=== PATIENT | female | born 1975 | race Caucasian/White ===

== ENCOUNTER 2020-05-03 17:26 | Outpatient (REF) | payer OTHER, SELFPAY | END 2020-05-03 17:27 | disposition home or self-care (01) | LOC: HO.LAB 17:26 | PROVIDERS: PCP Internal Medicine; Visit Provider Internal Medicine | DX: Z20.828 Contact with and (suspected) exposure to other viral communicable diseases (principal) | CPT/HCPCS: U0003 ==

== ENCOUNTER 2022-10-08 11:19 | Outpatient (REF) | payer OTHER, SELFPAY ==
--- NOTE | ~2022-10-08 | CT_ITS ---
EXAMINATION: CT CHEST, ABDOMEN AND PELVIS WITH CONTRAST CLINICAL INFORMATION: Malignant neoplasm of kidney. COMPARISON: Portions of a previous CT 10/03/2021, 10/14/2020, 04/12/2020. TECHNIQUE: Multidetector CT of the chest, abdomen and pelvis. The patient received: Oral contrast: No. Intravenous contrast: 85 mL of Omnipaque 350. No contrast reaction reported. Sagittal and coronal reformatted images were obtained on the technologist workstation. This CT examination was performed using dose optimization techniques as appropriate, variously including the following: *Automated exposure control *Adjustment of mA and/or kV according to patient size (this includes techniques or standardized protocols for targeted exams where dose is matched to indication/reason for exam; i.e. extremities or head) *Use of iterative reconstruction technique Total exam dose-length product 491 mGy-cm FINDINGS: CHEST: Lung: No abnormality of the central airways. 0.6 cm nonsolid round nodule in the periphery of the right middle lobe: 10/08/2022, series 6, image 262: 0.6 cm 10/03/2021, series 610, image 54: 0.6 cm 10/14/2020, series 306, image 68: 0.6 cm 04/12/2020, series 3, image 56: 0.6 cm There is an unchanged nodule in the extreme left apex measuring approximately 0.2 cm: 10/08/2022, series 6, image 78: 0.2 cm 04/12/2020, series 3, image 15: 0.2 cm There is some minor fibrotic change adjacent to some lower right thoracic osteophytes which does not require any further interval evaluation. Pleura: No pleural effusion or pneumothorax. Mediastinum: There are no enlarged mediastinal or hilar lymph nodes. The heart is not enlarged. No suspicious abnormality of the esophagus. Vascular: There is no coronary calcification demonstrated. There is no thoracic aortic aneurysm. The main pulmonary artery is of normal caliber. There is no pericardial fluid or thickening. Chest Wall/Axilla: No axillary or internal mammary lymphadenopathy. ABDOMEN/PELVIS: Liver, Gallbladder, And Biliary Tree: The liver contour is smooth. There is no suspicious focal liver lesion. Mild generalized fatty change. There may be a trace amount of more focal fatty change at the medial aspect of segment V. There is at least 1 opaque gallstone. No gallbladder wall thickening. No biliary dilation. Pancreas: Normal. Spleen: Normal. Adrenal Glands: Normal. Kidneys And Ureters: The solitary right kidney measures at least 9.8 cm in greatest length. The right renal contour is smooth. There is no suspicious abnormality of the right kidney. Evidence of left nephrectomy. There is an amorphous intermediate density area in the nephrectomy bed abutting the diaphragm: 10/08/2022, series 3, image 22: 1.9 cm 10/03/2021, series 309, image 40: 2.1 cm 10/14/2020, series 301, image 30: 4.4 cm 04/12/2020, series 4, image 39: 4.7 cm This area appears to have consolidated and there is less internal fat and the margins are better defined. There is no suspicious abnormality in the left nephrectomy bed. Gastrointestinal Tract: There are some colonic diverticula. No localized pericolonic fat stranding. The appendix is within normal limits. There is no small bowel dilation. No abnormality of the stomach. Abdominal Wall: Laxity in the left flank abdominal wall perhaps related to previous surgery. No bowel hernia. Lymphovascular Structures And Fluid: There is no abdominal aortic aneurysm. The portal vein enhances. There are a few nonspecific periportal lymph nodes which are unchanged. There is no free intraperitoneal fluid. Bladder: Within normal limits. Pelvic Viscera: There are low attenuating areas within the lower uterine segment and right side of the uterus and there is a probable myometrial mass on the right. These are unchanged. No suspicious abnormality in either ovary. Musculoskeletal: No suspicious focal bony lesion. CT/CT chest w IV con IMPRESSION: I do not have the reports from previous studies. Evidence of left nephrectomy with resolving postsurgical changes. No evidence of new or recurrent malignancy. There is a 0.6 cm nonsolid nodule in the right middle lobe which has been stable since at least 04/12/2020. According to the UPDATED 2017 Fleischner Society recommendations, the advised followup imaging for a single pure ground-glass nodule measuring 6 mm or greater is: CT at 6-12 months to confirm persistence, then CT every 2 years until 5 years if it persists.
--- NOTE | ~2022-10-08 | CT_ITS ---
EXAMINATION: CT ABDOMEN AND PELVIS WITH CONTRAST CLINICAL INFORMATION: Malignant neoplasm of kidney. Stat evaluation for the abdomen and pelvis. COMPARISON: None available. TECHNIQUE: Multidetector volumetric images were obtained from the superior aspect of the liver through the pubic symphysis following administration 85 mL of Omnipaque 350 intravenous contrast. Sagittal and coronal reformatted images were obtained on the technologist's workstation. This CT examination was performed using dose optimization techniques as appropriate, variously including the following: *Automated exposure control *Adjustment of mA and/or kV according to patient size (this includes techniques or standardized protocols for targeted exams where dose is matched to indication/reason for exam; i.e. extremities or head) *Use of iterative reconstruction technique DLP: 692 mGy-cm FINDINGS: LUNG BASES: Normal. No pulmonary consolidation or pleural effusion. LIVER: The liver has normal size, shape, and attenuation. No evidence of liver mass. GALLBLADDER AND BILIARY TREE: Gallbladder is physiologically distended and has a 0.4 cm calcified stone. No wall thickening or pericholecystic fluid. No dilated bile ducts. PANCREAS: Normal. No edema, pancreatic ductal dilatation or mass. SPLEEN: Normal. ADRENAL GLANDS: Normal. KIDNEYS AND URETERS: The right kidney is normal in size and enhances normally. No right renal mass, stone or hydronephrosis. The right ureter is normal. Left nephrectomy. Superior to the nephrectomy bed, lateral to the left adrenal gland, there is a 2.3 x 2 x 1.8 cm structure of 30-40 Hounsfield unit attenuation on these contrast-enhanced images. It is not well characterized on this examination but might represent a postoperative hematoma rather than metastatic deposit. BLADDER: Normal. No calculi or wall thickening. BOWEL AND PERITONEUM: Stomach and small bowel are unremarkable. No dilated bowel loops. No focal bowel wall thickening, mesenteric fat stranding or free fluid. The appendix is normal. Diverticula of the sigmoid colon without diverticulitis. ABDOMINAL WALL: Unremarkable. VASCULATURE: Mild atherosclerotic calcification of the abdominal aorta. Inferior vena cava is normal. LYMPH NODES: No pathologic sized lymph nodes in the abdomen or pelvis. A normal-sized aortocaval lymph node is 0.6 cm in short axis dimension (image 26, series 3). No inguinal lymphadenopathy. PELVIC VISCERA: 1.8 cm nabothian cyst of the cervix. Subserosal leiomyoma of the anterior uterine body. Also, there appears to be a 1.2 cm follicle of the right ovary. No adnexal mass or pelvic free fluid. MUSCULOSKELETAL: No suspicious bone lesions. Facet osteoarthritis and grade 1 anterolisthesis at L4-L5. CT/CT abdomen pelvis w IV con IMPRESSION: * Status post left nephrectomy. * A 2.3 x 2 x 1.8 cm structure of 30-40 Hounsfield unit attenuation projecting lateral to the left adrenal gland is not well characterized. It might represent a focal postoperative hematoma. Alternatively, if this has been observed on prior outside postoperative imaging exams and is increasing in size, then a tumor deposit would be considered in this patient with history of malignant neoplasm. If clinically warranted, MR imaging of the abdomen performed without and with IV contrast may be obtained for further characterization. * Cholelithiasis. * Diverticulosis of sigmoid colon without diverticulitis.
[2022-10-08] MEDS: iohexoL 350 MG/ML 100 ML INFUS..BTL IV (12:05)
== END 2022-10-08 11:20 | disposition home or self-care (01) ==
LOC: HO.CT 11:19
PROVIDERS: PCP Registered Nurse; Visit Provider Urology
DX: C64.2 Malignant neoplasm of left kidney, except renal pelvis (principal)
CPT/HCPCS: 71260; 74177; Q9967

== ENCOUNTER 2023-02-02 11:46 | Outpatient (REF) | payer OTHER, SELFPAY ==
[2023-02-02 14:00] LABS: Alanine Aminotransferase 31 U/L (0-31); Albumin Level 4.1 g/dL (3.5-5.0); Alkaline Phosphatase 105 U/L (39-117); Aspartate Amino Transferase 23 U/L (5-31); Bilirubin Direct 0.1 mg/dL (0.0-0.5); Bilirubin Total 0.3 mg/dL (0.0-1.0); Total Protein 7.2 g/dL (6.5-8.0)
== END 2023-02-02 11:47 | disposition home or self-care (01) ==
LOC: HO.10HDL 11:46
PROVIDERS: Visit Provider Internal Medicine Gastroenterology
DX: R94.5 Abnormal results of liver function studies (principal)
CPT/HCPCS: 36415; 80076

== ENCOUNTER 2023-05-05 07:54 | Outpatient (REF) | payer OTHER, SELFPAY ==
[2023-05-05 10:17] LABS: MANUAL DIFF FLAG NO
[2023-05-05 10:27] LABS: Basophils Absolute Auto 0.1 X10*3/uL (0.0-0.2); Basophils Percent Auto 1.3 % (0-2); Eosinophils Absolute Auto 0.4 X10*3/uL (0.0-0.4); Eosinophils Percent Auto 5.1 % (0-4); Hematocrit 42.2 % (37.0-47.0); Hemoglobin 13.1 g/dl (12.0-16.0); Imm Gran Abs Auto 0.01 X10*3/uL (0.00-0.03); Imm Gran Pct Auto 0.1 % (0.0-0.4); Lymphocytes Absolute Auto 2.7 X10*3/uL (1.2-4.9); Lymphocytes Percent Auto 35.4 % (20-40); Mean Corpuscular Hemoglobin 25.8 pg (27.0-33.0); Mean Corpuscular Volume 83.1 fL (80.0-98.0); Mean Platelet Volume 9.8 fL (9.4-12.3); Monocytes Absolute Auto 0.6 X10*3/uL (0.1-1.2); Monocytes Percent Auto 8.1 % (2-11); Neutrophils Absolute Auto 3.8 x10*3/uL (2.0-8.3); Platelet Count 366 X10*3/uL (160-400); Red Blood Count 5.08 X10*6/uL (4.20-5.50); Red Cell Distribution Width 13.8 % (11.0-16.0); White Blood Count 7.5 X10*3/uL (4.8-10.8)
[2023-05-05 10:46] LABS: Estimated Average Glucose 108 mg/dL; Hemoglobin A1C 107.9532 umol/L; Hemoglobin A1c % 5.4 % (<6.0)
[2023-05-05 10:54] LABS: Alanine Aminotransferase 38 U/L (0-31); Albumin Level 4.1 g/dL (3.5-5.0); Alkaline Phosphatase 115 U/L (39-117); Anion Gap 13 (12-20); Aspartate Amino Transferase 27 U/L (5-31); Bilirubin Total 0.4 mg/dL (0.0-1.0); Blood Urea Nitrogen 14 mg/dL (9-16); Calcium 9.5 mg/dL (8.4-10.2); Carbon Dioxide 25 mmol/L (22-29); Chloride 106 mmol/L (96-108); Cholesterol 221 mg/dL (<200); Estimated Glomerular Filt Rate 51; Glucose Random 106 mg/dL (60-115); HDL Cholesterol 44 mg/dL (>40); LDL Cholesterol Calculated 153 mg/dL (<100); Potassium 4.1 mmol/L (3.3-5.1); Sodium 140 mmol/L (135-145); Total Protein 7.4 g/dL (6.5-8.0); Triglycerides 124 mg/dL (<150)
[2023-05-05 11:12] LABS: Free T4 (Free Thyroxine) 0.96 ng/dL (0.71-1.85); Thyroid Stimulating Hormone 1.18 uIU/mL (0.32-4.0)
== END 2023-05-05 07:55 | disposition home or self-care (01) ==
LOC: HO.10HDL 07:54
PROVIDERS: Visit Provider Registered Nurse
DX: Z00.00 Encounter for general adult medical examination without abnormal findings (principal); K74.3 Primary biliary cirrhosis; E78.5 Hyperlipidemia, unspecified; R73.01 Impaired fasting glucose; R53.83 Other fatigue
CPT/HCPCS: 36415; 80053; 80061; 83036; 84439; 84443; 85025

== ENCOUNTER 2023-07-13 12:36 | Outpatient (REF) | payer OTHER, SELFPAY ==
--- NOTE | ~2023-07-13 | XR_ITS ---
EXAMINATION: XR CHEST CLINICAL INFORMATION: Cough COMPARISON: 4 prior yearly chest CTs from 2019 through 2022 TECHNIQUE: 2 views of the chest were obtained. FINDINGS: No significant abnormality is noted involving the heart, lungs, mediastinum, bony thorax or soft tissues. A linear area of atelectasis is present in the left mid to lower lung. XR/XR chest 2V IMPRESSION: Negative exam
== END 2023-07-13 12:37 | disposition home or self-care (01) ==
LOC: HO.HMGCX 12:36
PROVIDERS: PCP Registered Nurse; Visit Provider Registered Nurse
DX: R05.9 Cough, unspecified (principal)
CPT/HCPCS: 71046

== ENCOUNTER 2023-08-24 09:02 | Emergency (ER) | payer OTHER, SELFPAY ==
--- NOTE | ~2023-08-24 | US_ITS ---
EXAMINATION: US VENOUS WITH DOPPLER UPPER EXTREMITY, RIGHT CLINICAL INFORMATION: Right upper extremity pain and swelling COMPARISON: None available. TECHNIQUE: Ultrasound of the upper extremity is performed using compression sonography and color and pulse Doppler flow with assessment of augmentation of flow. There is also imaging and Doppler assessment of the jugular and subclavian veins. Spectral analysis with color-flow imaging is performed. Somewhat technically difficult due to diminutive vessels. FINDINGS: Respiratory variation and normal compression are are noted throughout the upper extremity including the basilic, brachial, cephalic and radial and ulnar veins. There is normal flow in the internal jugular, subclavian and axillary veins. There is no visible deep or superficial thrombophlebitis. US/US venous duplex UE RT IMPRESSION: No DVT demonstrated in the right upper extremity.
[2023-08-24 09:07] VITALS: BP 176/98; PULSE 89; RESP 19; TEMP 36.6; O2SAT 98; BMI 32.9
--- NOTE | 2023-08-24 10:19 | ED.EXTPRO ---
HPI - Extremity Problem General Chief complaint: Extremity Injury, Upper Stated complaint: ? Phlebitis R Arm Time Seen by Provider: 08/24/23 09:22 Source: patient Mode of arrival: ambulatory Limitations: no limitations History of Present Illness HPI Narrative: This is a 48-year-old female history of unilateral kidney, status post radical L nephrectomy due to kidney cancer presents to the emergency department with pain and swelling to right upper extremity, reports her right arm in the antecubital region is uncomfortable, swollen and she feels like there is a firm cord in that region. It started yesterday without trauma. Denies history of PE or DVT. Does have a history of malignancy. Reports her dog may have jumped on her right biceps at some point because she has a small bruise to that region however does not think that this is related to this event. Denies chest pain, shortness of breath, nausea, vomiting, abdominal pain, headache, vision changes, dizziness, numbness, tingling and weakness Related Data Previous Rx's Medication Instructions Recorded naproxen 500 mg tablet 500 mg PO BID #14 tabs 08/24/23 Allergies Allergy/AdvReac Type Severity Reaction Status Date / Time amoxicillin Allergy Rash Verified 08/24/23 09:07 cephalexin [From Keflex] Allergy Rash Verified 08/24/23 09:07 Review of Systems Review of Systems: Yes all other systems are reviewed and are negative PMFSH Past Medical History Attestation statement: The following information was validated with the patient. Source: old records reviewed and nursing notes reviewed Social History Social History Advance Directives: Yes Advance Directives Information Provided: Yes Advance Directives on File: No Physical Exam Vital Signs: Vital Signs: Last Vital Signs Temp 98 F 08/24/23 09:07 Pulse 89 08/24/23 09:07 Resp 19 08/24/23 09:07 BP 176/98 H 08/24/23 09:07 Pulse Ox 98 08/24/23 09:07 O2 Del Method Room Air 08/24/23 09:07 BMI result Body Mass Index 32.9 vss Appearance: Alert.? Oriented X3.? No acute distress.? Head: Normocephalic, atraumatic, no step-offs or deformities Eyes: Pupils equal, round and reactive to light.? CVS: Normal heart rate and rhythm.? Pulses normal.? Respiratory: No respiratory distress.? Breath sounds normal.? Skin: Skin warm and dry.? Normal skin color.? Normal skin turgor.? Extremities: 5/5 strength to bilateral upper and lower extremities + 2+ radial pulses equal bilateral, 2+ brachial pulses equal bilateral, normal sensation distally to bilateral upper extremities, right antecubital region does appear to be slightly more swollen than left no overlying skin changes in that region. Right biceps does have a small bruise in the right bicep measuring approximately 1 cm. Negative Tinel's, phalens test. Normal elbow flexion test. Back: No midline tenderness, no C-spine tenderness, full range of motion, no CVA tenderness bilaterally Neuro: Oriented X 3.? No motor deficit.? No sensory deficit. CN 2-12 intact Course Reevaluation(s) Reevaluation #1: No DVT demonstrated in the RUE. Plan at this time is to discharge patient home with anti-inflammatories. Likely contusion. Educated patient on diagnosis and treatment plan, answered all question, patient verbalizes understanding. At this time patient will be discharged home, advised to return with new or worsening symptoms. Educated on worrisome signs and symptoms and when to return. At this time I feel comfortable discharge home. Time: 11:15 Medical Decision Making Medical Decision Making [facility] Narrative: 48-year-old female presents with complaints of right arm swelling and pain atraumatic since yesterday. Physical exam significant for 5/5 strength to bilateral upper and lower extremities + 2+ radial pulses equal bilateral, 2+ brachial pulses equal bilateral, normal sensation distally to bilateral upper extremities, right antecubital region does appear to be slightly more swollen than left no overlying skin changes in that region. Right biceps does have a small bruise in the right bicep measuring approximately 1 cm. Negative Tinel's, phalens test. Normal elbow flexion test. History and physical exam concerning for possible contusion versus cubital tunnel versus muscle spasm. Unlikely arterial or venous occlusion. Plan at this time will obtain an ultrasound of right upper extremity Differential Diagnosis Differential Diagnoses: The differential diagnosis associated with the presentation includes History and physical exam concerning for possible contusion versus cubital tunnel versus muscle spasm. Unlikely arterial or venous occlusion. Admission/Observation Consideration of admission/observation: Escalation of care including admission/observation considered Unlikely Lab Data [facility] Lab Attestation statement: I reviewed the patient's lab results. Independent Interpretation I performed an independent interpretation of an: Ultrasound Radiology Impression Discussion of test interpretation with radiology: I have reviewed the radiologist's reading. Prescription Management I considered prescription management with: Other (naproxen ) Discharge Plan Discharge Clinical Impression: Pain in right arm Patient Disposition: Home, Self-Care Instructions: Arm Pain (ED) Additional Instructions: Take your medications as prescribed. If you were prescribed antibiotics today, it is important that you take your medication to their entirety, do not skip any doses, do not finish them early. Follow-up with your primary care provider this week. Return to the emergency department with new or worsening symptoms. Such as fevers, chills, chest pain, shortness of breath, nausea, vomiting, dizziness, headache, vision changes, lethargy In case of emergency call 911 This is likely contusion versus cubital tunnel syndrome. US/US venous duplex UE RT IMPRESSION: No DVT demonstrated in the right upper extremity. Prescriptions: New naproxen 500 mg tablet 500 mg PO BID Qty: 14 0RF Referrals: Noah Sanchez PA-C [Primary Care Provider] - 2 days Stand Alone Forms: Work/School Release
--- NOTE | 2023-08-24 11:16 | ECG_ITS ---
Test Reason : rue pain Blood Pressure : / mmHG Vent. Rate : 055 BPM Atrial Rate : 055 BPM P-R Int : 132 ms QRS Dur : 082 ms QT Int : 408 ms P-R-T Axes : 042 036 033 degrees QTc Int : 390 ms Sinus bradycardia Otherwise normal ECG No previous ECGs available Referred By: Diandra Mcclain Electronically Signed By:CARMEL JOSE MD
[2023-08-24 11:39] VITALS: BP 163/80
== END 2023-08-24 11:49 | disposition home or self-care (01) ==
PROVIDERS: Emergency Provider Emergency Medicine; PCP Registered Nurse
DX: R60.0 Localized edema (principal); M79.601 Pain in right arm; R00.1 Bradycardia, unspecified
CPT/HCPCS: 93005; 93971; 99283; 99284

== ENCOUNTER → 2023-08-24 11:16 | Outpatient (BNV) | payer OTHER, SELFPAY | PROVIDERS: Emergency Provider Emergency Medicine; PCP Registered Nurse; Visit Provider Internal Medicine Cardiovascular Disease | DX: R00.1 Bradycardia, unspecified (principal) | CPT/HCPCS: 93010 ==

== ENCOUNTER 2023-09-17 16:11 | Outpatient (REF) | payer OTHER, SELFPAY ==
[2023-09-17 18:18] LABS: Alanine Aminotransferase 41 U/L (0-31); Albumin Level 4.3 g/dL (3.5-5.0); Alkaline Phosphatase 120 U/L (39-117); Aspartate Amino Transferase 28 U/L (5-31); Bilirubin Direct 0.1 mg/dL (0.0-0.5); Bilirubin Total 0.3 mg/dL (0.0-1.0); Total Protein 7.4 g/dL (6.5-8.0)
== END 2023-09-17 16:12 | disposition home or self-care (01) ==
LOC: HO.LAB 16:11
PROVIDERS: PCP Registered Nurse; Visit Provider Internal Medicine Gastroenterology
DX: R94.5 Abnormal results of liver function studies (principal)
CPT/HCPCS: 36415; 80076

== ENCOUNTER 2023-10-27 09:57 | Outpatient (REF) | payer OTHER, SELFPAY ==
[2023-10-27 11:20] LABS: Anion Gap 12 (12-20); Blood Urea Nitrogen 16 mg/dL (9-16); Calcium 9.8 mg/dL (8.4-10.2); Carbon Dioxide 25 mmol/L (22-29); Chloride 106 mmol/L (96-108); Estimated Glomerular Filt Rate 48; Glucose Random 105 mg/dL (60-115); Potassium 4.3 mmol/L (3.3-5.1); Sodium 139 mmol/L (135-145)
== END 2023-10-27 09:58 | disposition home or self-care (01) ==
LOC: HO.LAB 09:57
PROVIDERS: PCP Registered Nurse; Visit Provider Urology
DX: C64.2 Malignant neoplasm of left kidney, except renal pelvis (principal)
CPT/HCPCS: 36415; 80048

== ENCOUNTER 2023-12-17 09:57 | Emergency (ER) | payer OTHER, SELFPAY ==
--- NOTE | ~2023-12-17 | CT_ITS ---
EXAMINATION: CT ABDOMEN AND PELVIS WITHOUT CONTRAST CLINICAL INFORMATION: Left flank pain COMPARISON: Previous CT of the abdomen and pelvis October 2022 TECHNIQUE: Multidetector volumetric imaging was performed from the superior aspect of the liver through the pubic symphysis. Sagittal and coronal reformatted images were obtained on the technologist's workstation. This CT examination was performed using dose optimization techniques as appropriate, variously including the following: *Automated exposure control *Adjustment of mA and/or kV according to patient size (this includes techniques or standardized protocols for targeted exams where dose is matched to indication/reason for exam; i.e. extremities or head) *Use of iterative reconstruction technique DLP: 732 mGy-cm FINDINGS: LUNG BASES: Subsegmental atelectasis or small infiltrate in the posterior costophrenic angle of the left lower lobe. LIVER, GALLBLADDER, AND BILIARY TREE: The liver is normal in size, shape, and attenuation. No focal hepatic lesion or biliary ductal dilatation is present. Small gallstones in the gallbladder. The gallbladder is otherwise normal. PANCREAS: Unremarkable. SPLEEN: Unremarkable. ADRENAL GLANDS: Unremarkable. KIDNEYS AND URETERS: The left kidney has been removed. There is interval decrease in fat stranding and small fluid collection in the left renal fossa probably representing postsurgical change. Residual fluid collection measures approximately 8 x 1.2 cm compared to 1.2 x 1.8 cm on previous exam. The right kidney is normal. BLADDER: Unremarkable. GASTROINTESTINAL TRACT: Diverticulosis of the colon. No evidence of diverticulitis. The small and large bowel are otherwise unremarkable. The appendix is unremarkable. ABDOMINAL WALL: No significant hernia is appreciated. LYMPH NODES: Normal. VASCULAR: Unremarkable. PELVIC VISCERA: Fibroid uterus. OSSEOUS STRUCTURES: Degenerative changes of the spine. CT/CT abdomen pelvis wo IV con IMPRESSION: Post left nephrectomy. Decreasing postoperative change in the left renal fossa. Atelectasis or small infiltrate in the posterior costophrenic sulcus of the left lower lobe. Small gallstones. Diverticulosis. Fibroid uterus. Fleischner guidelines were followed.
--- NOTE | ~2023-12-17 | XR_ITS ---
EXAMINATION: XR CHEST CLINICAL INFORMATION: Left sided pain. COMPARISON: Chest radiograph dated 07/13/2023. TECHNIQUE: Frontal view of the chest was obtained. FINDINGS: The cardiac silhouette is normal in size. Both lungs are clear. The pleural spaces are clear. There is no pneumothorax. No acute osseous abnormality. XR/XR chest 1V IMPRESSION: No acute cardiopulmonary disease.
[2023-12-17 10:01] VITALS: BP 164/73; PULSE 68; RESP 16; TEMP 36.6; O2SAT 100; BMI 35.2
[2023-12-17 10:22] LABS: MANUAL DIFF FLAG NO
[2023-12-17 10:24] LABS: Basophils Absolute Auto 0.1 X10*3/uL (0.0-0.2); Basophils Percent Auto 1.1 % (0-2); Eosinophils Absolute Auto 0.4 X10*3/uL (0.0-0.4); Eosinophils Percent Auto 3.4 % (0-4); Hematocrit 40.4 % (37.0-47.0); Hemoglobin 13.1 g/dl (12.0-16.0); Imm Gran Abs Auto 0.03 X10*3/uL (0.00-0.03); Imm Gran Pct Auto 0.3 % (0.0-0.4); Lymphocytes Percent Auto 28.5 % (20-40); Mean Corpuscular HGB Conc 32.4 g/dl (31.0-35.0); Mean Corpuscular Hemoglobin 26.5 pg (27.0-33.0); Mean Corpuscular Volume 81.8 fL (80.0-98.0); Mean Platelet Volume 9.5 fL (9.4-12.3); Monocytes Absolute Auto 0.9 X10*3/uL (0.1-1.2); Monocytes Percent Auto 8.5 % (2-11); Neutrophils Absolute Auto 6.1 x10*3/uL (2.0-8.3); Neutrophils Percent Auto 58.2 % (45-73); Platelet Count 363 X10*3/uL (160-400); Red Blood Count 4.94 X10*6/uL (4.20-5.50); Red Cell Distribution Width 13.8 % (11.0-16.0); White Blood Count 10.5 X10*3/uL (4.8-10.8)
[2023-12-17 10:34] LABS: Appearance Urine Clear; Color Urine Yellow; Glucose Urine UA Negative (Negative); Leukocyte Esterase Urine Negative (Negative); Nitrite Urine Negative (Negative); Specific Gravity - Urine <= 1.005 (1.005-1.025); Urine Blood Negative (Negative); Urine Ketones Negative (Negative); Urine Protein Negative (Neg-Trace)
[2023-12-17 10:44] LABS: Alanine Aminotransferase 36 U/L (0-31); Albumin Level 4.2 g/dL (3.5-5.0); Alkaline Phosphatase 111 U/L (39-117); Anion Gap 10 (12-20); Aspartate Amino Transferase 24 U/L (5-31); Bilirubin Total 0.4 mg/dL (0.0-1.0); Blood Urea Nitrogen 16 mg/dL (9-16); Calcium 9.8 mg/dL (8.4-10.2); Carbon Dioxide 28 mmol/L (22-29); Chloride 103 mmol/L (96-108); Creatinine Clr Calc Pharmacy 60.4; Estimated Glomerular Filt Rate 49; Glucose Random 114 mg/dL (60-115); Lipase 49 U/L (8-78); Potassium 4.4 mmol/L (3.3-5.1); Sodium 137 mmol/L (135-145); Total Protein 7.6 g/dL (6.5-8.0)
[2023-12-17 12:01] VITALS: BP 144/90; PULSE 78; RESP 16; O2SAT 98
--- NOTE | 2023-12-17 12:01 | ED.GENADULT ---
HPI - General Adult General Chief complaint: Back Pain/Injury Stated complaint: L Side Pain HX of Kidney CA Time Seen by Provider: 12/17/23 12:30 Source: patient and old records reviewed Mode of arrival: ambulatory Limitations: no limitations History of Present Illness ED Provider: KESHA NORTH narrative: 48 yo female with PMH of L sided renal cell carcinoma treated with L nephrectomy 2020 no other tx necessary gets surveillance regularly last in October notes it was normal. Comes in with c/o atraumatic L flank pain worsening over 3 days hurts to move cannot get comfortable no pain with breathing or inspiration, no n/v/d or urinary symptoms. complaint: L flank pain Onset (ago): day(s) (3) Location: back and left Radiation: non-radiation Severity: moderate Quality: aching and constant Pain Consistency: constant Relieving factors: none Exacerbating factors: movement Associated symptoms: denies other symptoms Treatments prior to arrival: none Related Data Previous Rx's ?Medication ?Instructions ?Recorded naproxen 500 mg tablet 500 mg PO BID #14 tabs 08/24/23 azithromycin 250 mg tablet See Rx Instructions PO .COMPLEX #6 12/17/23 tabs cyclobenzaprine 10 mg tablet 10 mg PO TID PRN muscle spasm #20 12/17/23 tabs prednisone 20 mg tablet 20 mg PO DAILY 5 days #5 tabs 12/17/23 Allergies Allergy/AdvReac Type Severity Reaction Status Date / Time amoxicillin Allergy Rash Verified 12/17/23 10:04 cephalexin [From Keflex] Allergy Rash Verified 12/17/23 10:04 Review of Systems Review of Systems: Constitutional : No Weight loss, No Fever, No Chills, ENT/Mouth : No Hearing loss, No Ear Pain, No Nasal Congestion, No Sinus Pain, No Hoarseness, No sore throat, No Rhinorrhea, No Swallowing Difficulty Cardiovascular : No Chest Pain, No SOB Respiratory : No Cough, No Dyspnea Gastrointestinal : No Nausea, No Vomiting, No Diarrhea, No abdominal Pain, No Hematochezia, No Melena, pos flank pain Genitourinary : No Dysuria, No Urinary Frequency, No Hematuria, No Urinary Incontinence, Musculoskeletal : positive back pain Skin : No Skin Lesions, No rash Neuro : No Weakness, No Numbness, No Paresthesias, no loss of bowel or bladder incontinence, no saddle anesthesia all other systems reviewed and are negative PMFSH Past Medical History Attestation statement: The following information was validated with the patient. Source: old records reviewed Medical History (Updated 12/17/23 @ 15:36 by Safia Langley DO) IBS (irritable bowel syndrome) Renal cell carcinoma Surgical History (Updated 12/17/23 @ 13:49 by Safia Langley DO) History of nephrectomy, left Social History Social History (Updated 12/17/23 @ 13:50 by Safia Langley DO) Patient Tobacco Use Status: Never used Tobacco Smoked in Last 30 Days: No Use of substances other than those prescribed or required for medical reasons: No Advance Directives: Yes Advance Directives Information Provided: Yes Advance Directives on File: No Do you have a plan to hurt others: No Plan Patient : No Physical Exam ED Vital Signs: Vital Signs - 24 hr 12/17/23 10:01 12/17/23 12:01 12/17/23 14:21 Temperature 97.8 F 97.4 F Pulse Rate 68 78 81 Respiratory Rate 16 16 17 Blood Pressure 164/73 H 144/90 H 133/71 Pulse Oximetry 100 98 96 Oxygen Delivery Method Room Air Room Air Room Air 12/17/23 15:51 Temperature 98.2 F Pulse Rate 90 Respiratory Rate 14 Blood Pressure 153/88 H Pulse Oximetry 100 Oxygen Delivery Method Room Air BMI result Body Mass Index 35.2 Appearance: Alert. Oriented X3. No acute distress. Eyes: Pupils equal, round and reactive to light. ENT: Pharynx normal. Neck: Normal inspection. Neck supple. CVS: Normal heart rate and rhythm. Pulses normal. Respiratory: No respiratory distress. Breath sounds normal. Abdomen: Soft and nontender. Back: L flank ttp palpation reproduces pain hurts to move Skin: Skin warm and dry. Normal skin color. Normal skin turgor. Extremities: No lower extremity edema. No calf ttp Neuro: Oriented X 3. No motor deficit. No sensory deficit. Course Course Course Narrative: This is an RME performed by William Jalloh CNP: Additional HPI, ROS, PE not included below will be deferred to primary provider. Patient is a 48-year-old female who presents to the emergency department for evaluation of left flank pain. She reports onset 3 days ago without precipitating injury, pain has been constant, states it is not made worse with any particular movement. She reports a history of kidney cancer with left nephrectomy in 2019, currently in remission. Last night she was experiencing pain that radiated up to her left shoulder, she thought it was due to IBS but did not improve with meds. She was trialed Advil and cyclobenzaprine without improvement. Denies associated genitourinary symptoms, denies abdominal pain, nausea, vomiting, constipation, diarrhea, fevers, chills. Exam: Left CVA tenderness with deep palpation, appears uncomfortable, tearful Plan: Labs, urinalysis Reevaluation(s) Reevaluation #1: given CT scan will treat with steroids, zpak and flexeril Medications Administered Discontinued Medications Generic Name Dose Route Start Last Admin Trade Name Freq PRN Reason Stop Dose Admin Cyclobenzaprine HCl 10 mg 12/17/23 12:37 12/17/23 12:54 Cyclobenzaprine Hcl 10 Mg Tablet PO 12/17/23 12:38 10 mg ONCE ONE Administration Medical Decision Making Medical Decision Making [facility] Narrative: 48 yo female with PMH of L sided renal cell carcinoma treated with L nephrectomy 2019 no other tx necessary gets surveillance regularly last in October here with c/o L flank pain with no associated symptoms worse with palpation and movements at this time will need labs, UA, CXR for effusion it is not pleuritic and she has no signs of DVT, tachycardia or hypoxia to suggest VTE, CT scan for recurrence or issue. PO flexeril for pain could be MSK Differential Diagnosis Differential Diagnoses: The differential diagnosis associated with the presentation includes MSK, effusion, recurrence Admission/Observation Consideration of admission/observation: Escalation of care including admission/observation considered work up and labs reassuring stable for DC pain controlled tolerating PO no hypoxia Lab Data [facility] Lab Attestation statement: I reviewed the patient's lab results. 12/17/23 10:20 12/17/23 10:20 Labs: Lab Results 12/17/23 12/17/23 Range/Units 10:20 10:23 WBC 10.5 (4.8-10.8) X10*3/uL RBC 4.94 (4.20-5.50) X10*6/uL Hgb 13.1 (12.0-16.0) g/dl Hct 40.4 (37.0-47.0) % MCV 81.8 (80.0-98.0) fL MCH 26.5 L (27.0-33.0) pg MCHC 32.4 (31.0-35.0) g/dl RDW 13.8 (11.0-16.0) % Plt Count 363 (160-400) X10*3/uL MPV 9.5 (9.4-12.3) fL Immature Gran % (Auto) 0.3 (0.0-0.4) % Neut % (Auto) 58.2 (45-73) % Lymph % (Auto) 28.5 (20-40) % [place]aufman % (Auto) 8.5 (2-11) % Eos % (Auto) 3.4 (0-4) % Baso % (Auto) 1.1 (0-2) % Lymph # (Auto) 3.0 (1.2-4.9) X10*3/uL [place]man # (Auto) 0.9 (0.1-1.2) X10*3/uL Eos # (Auto) 0.4 (0.0-0.4) X10*3/uL Baso # (Auto) 0.1 (0.0-0.2) X10*3/uL Abs Immat Gran (auto) 0.03 (0.00-0.03) X10*3/uL Absolute Neuts (auto) 6.1 (2.0-8.3) x10*3/uL Absolute Nucleated RBC 0.000 (0.0-0.012) X10*3/uL Nucleated RBC % (auto) 0.0 (0.0-0.2) /100WBC Sodium 137 (135-145) mmol/L Potassium 4.4 (3.3-5.1) mmol/L Chloride 103 (96-108) mmol/L Carbon Dioxide 28 (22-29) mmol/L Anion Gap 10 L (12-20) BUN 16 (9-16) mg/dL Creatinine 1.17 (0.5-1.4) mg/dL Estim Creat Clear Calc 60.4 Estimated GFR 49 Random Glucose 114 (60-115) mg/dL Calcium 9.8 (8.4-10.2) mg/dL Total Bilirubin 0.4 (0.0-1.0) mg/dL AST 24 (5-31) U/L ALT 36 H (0-31) U/L Alkaline Phosphatase 111 (39-117) U/L Total Protein 7.6 (6.5-8.0) g/dL Albumin 4.2 (3.5-5.0) g/dL Lipase 49 (8-78) U/L Urine Color Yellow Urine Appearance Clear Urine pH 6.0 (5.0-9.0) Ur Specific [place] <= 1.005 (1.005-1.025) Urine Protein Negative (Neg-Trace) mg/dL Urine Glucose (UA) Negative (Negative) mg/dL Urine Ketones Negative (Negative) mg/dL Urine Blood Negative (Negative) Urine Nitrite Negative (Negative) Ur Leukocyte Esterase Negative (Negative) Independent Interpretation I performed an independent interpretation of an: Plain X-Ray (normal ) and CT Scan (LL infiltrate) Radiology Impression Discussion of test interpretation with radiology: I have reviewed the radiologist's reading. External Record Review External record reviewed: Office record Prescription Management I considered prescription management with: Antibiotic and Other Discharge Plan Discharge Clinical Impression: Pleurisy Thoracic back pain Qualifiers: Chronicity: acute Back pain laterality: left Qualified Code(s): M54.6 - Pain in thoracic spine Pneumonia Qualifiers: Pneumonia type: due to unspecified organism Laterality: left Lung location: lower lobe of lung Qualified Code(s): J18.9 - Pneumonia, unspecified organism Patient Disposition: Home, Self-Care Instructions: Pleurisy (ED), Thoracic Pain (ED), Pneumonia (ED) Additional Instructions: start on oral antibiotic, return for worsening pain, difficulty breathing, fainting or any other concerns CT/CT abdomen pelvis wo IV con IMPRESSION: Post left nephrectomy. Decreasing postoperative change in the left renal fossa. Atelectasis or small infiltrate in the posterior costophrenic sulcus of the left lower lobe. Small gallstones. Diverticulosis. Fibroid uterus. Prescriptions: New cyclobenzaprine 10 mg tablet 10 mg PO TID PRN (Reason: muscle spasm) Qty: 20 0RF azithromycin 250 mg tablet See Rx Instructions .ROUTE .COMPLEX Qty: 6 0RF Rx Instructions: For 250 mg dose pack: take 500 mg today (day 1), then 250 mg for 4 days (days 2-5) prednisone 20 mg tablet 20 mg PO DAILY 5 Days Qty: 5 0RF No Action naproxen 500 mg tablet 500 mg PO BID Qty: 14 0RF Stand Alone Forms: Work/School Release Interventions: ED Discharge Assessment Last Done: 12/17/23 15:51 Discharge Date/Time: 12/17/23 15:53 Print Language: Sudanese
[2023-12-17] MEDS: Cyclobenzaprine HCl 10 MG TABLET PO (12:54)
--- NOTE | 2023-12-17 12:55 | PC.NURSE ---
pt returned from CT at this time. pt medicated per provider order. effectiveness pending. pt now ambulating to xray w/ a strong steady gait independently.
[2023-12-17 14:21] VITALS: BP 133/71; PULSE 81; RESP 17; TEMP 36.3; O2SAT 96
[2023-12-17 15:51] VITALS: BP 153/88; PULSE 90; RESP 14; TEMP 36.8; O2SAT 100
== END 2023-12-17 15:53 | disposition home or self-care (01) ==
PROVIDERS: Emergency Provider Emergency Medicine; PCP Registered Nurse
DX: J18.9 Pneumonia, unspecified organism (principal); R09.1 Pleurisy; M54.6 Pain in thoracic spine; R10.9 Unspecified abdominal pain; Z79.899 Other long term (current) drug therapy
CPT/HCPCS: 36415; 71045; 74176; 80053; 81003; 83690; 85025; 99284

== ENCOUNTER 2024-05-11 07:33 | Outpatient (REF) | payer OTHER, SELFPAY ==
[2024-05-11 08:00] LABS: MANUAL DIFF FLAG NO
[2024-05-11 08:14] LABS: Basophils Absolute Auto 0.1 X10*3/uL (0.0-0.2); Basophils Percent Auto 1.3 % (0-2); Eosinophils Absolute Auto 0.4 X10*3/uL (0.0-0.4); Eosinophils Percent Auto 4.5 % (0-4); Hematocrit 39.3 % (37.0-47.0); Hemoglobin 12.7 g/dl (12.0-16.0); Imm Gran Abs Auto 0.04 X10*3/uL (0.00-0.03); Imm Gran Pct Auto 0.5 % (0.0-0.4); Lymphocytes Absolute Auto 2.3 X10*3/uL (1.2-4.9); Lymphocytes Percent Auto 28.8 % (20-40); Mean Corpuscular HGB Conc 32.3 g/dl (31.0-35.0); Mean Corpuscular Volume 80.4 fL (80.0-98.0); Mean Platelet Volume 9.6 fL (9.4-12.3); Monocytes Absolute Auto 0.8 X10*3/uL (0.1-1.2); Monocytes Percent Auto 10.3 % (2-11); Neutrophils Absolute Auto 4.4 x10*3/uL (2.0-8.3); Neutrophils Percent Auto 54.6 % (45-73); Platelet Count 351 X10*3/uL (160-400); Red Blood Count 4.89 X10*6/uL (4.20-5.50); Red Cell Distribution Width 13.7 % (11.0-16.0)
[2024-05-11 08:20] LABS: Estimated Average Glucose 114 mg/dL; Hemoglobin A1C 119.6167 umol/L; Hemoglobin A1c % 5.6 % (<6.0)
[2024-05-11 08:43] LABS: Alanine Aminotransferase 45 U/L (0-31); Albumin Level 4.1 g/dL (3.5-5.0); Alkaline Phosphatase 115 U/L (39-117); Anion Gap 13 (12-20); Aspartate Amino Transferase 35 U/L (5-31); Bilirubin Total 0.5 mg/dL (0.0-1.0); Blood Urea Nitrogen 19 mg/dL (9-16); Calcium 9.4 mg/dL (8.4-10.2); Carbon Dioxide 24 mmol/L (22-29); Chloride 106 mmol/L (96-108); Cholesterol 194 mg/dL (<200); Estimated Glomerular Filt Rate 56; Glucose Random 110 mg/dL (60-115); HDL Cholesterol 47 mg/dL (>40); LDL Cholesterol Calculated 126 mg/dL (<100); Sodium 139 mmol/L (135-145); Total Protein 7.3 g/dL (6.5-8.0); Triglycerides 109 mg/dL (<150)
[2024-05-11 09:00] LABS: Free T4 (Free Thyroxine) 1.24 ng/dL (0.71-1.85); Thyroid Stimulating Hormone 1.57 uIU/mL (0.32-4.0)
== END 2024-05-11 07:34 | disposition home or self-care (01) ==
LOC: HO.LAB 07:33
PROVIDERS: PCP Registered Nurse; Visit Provider Registered Nurse
DX: Z00.00 Encounter for general adult medical examination without abnormal findings (principal); K74.3 Primary biliary cirrhosis; E78.5 Hyperlipidemia, unspecified; R73.01 Impaired fasting glucose; R53.83 Other fatigue; E55.9 Vitamin D deficiency, unspecified
CPT/HCPCS: 36415; 80053; 80061; 83036; 84439; 84443; 85025

== ENCOUNTER 2024-06-15 07:58 | Outpatient (REF) | payer OTHER, SELFPAY ==
--- OUTSIDE RECORDS SUMMARY | 2024-06-15 08:02 | XMS_ITS | Patient Health Record ---
Author Organization [facility] Address [address] [place] [address] Care Team Providers Care Courtroom Deputy Or Calendar Clerk Name Role Phone Noah Sanchez PA-C Primary Care Provider Ludivina Jewell Unavailable [phone] Allergies Allergen (clinical drug ingredient) Drug/Non Drug Allergy documented on EMR Reaction Allergy Type Onset Date Status amoxicillin Amoxicillin Rash Drug Allergy Act cj Ceftin Rash Drug Allergy Active Keflex rash Drug Allergy Active Adhesive Tape Blisters Drug Allergy Act cj Penicillin rash Drug Allergy Active Reason For Referral No Information Medications Medication SIG (Take, Route, Frequency, Duration) Notes Start Date End Date Status Multivitamin Active Walking Boot/Pneumatic As directed Wear Daily for Until further notice 07/04/2019 Not-[place] Sh[place] . . . Medically necess briana to wear walking cast boot at work as needed 07/26/2019 Not-[place] [facility] . . . 2-3x/week for 3- 4 weeks 02/19/2022 Not-Taking Work Note . . . patient may retu rn to work on 02/23/22 in her cast boot at a reduced work schedule of 6 hours daily 02/19/2022 Not-Taking Walking Boot/Pneumatic As directed Wear Daily for Until further notice 02/05/2022 Not-[place] Work Note . . . patient must wea r cast boot to work and she will be disabled from work starting 02/09/22 for two weeks 02/05/2022 Not-Taking Work Note . . . patient continue s with disablility from work 03/26/2022 Active Work Note . . . 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 . . 2-3x/week for 3- 4 weeks 07/24/2022 Active Sertraline HCl 25 MG 1 tablet Orally Onc e a day Active Physical Therapy . . . 2-3x/week for 3- 4 weeks 10/16/2020 Not-Taking Ursodiol Active Hyoscyamine Sulfate 0.125 MG 1 tablet on the tongue and allow to dissolve as needed Orally every 4 hrs Not-Taking Work Note . . . 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 Yes Points 0 Interpretation Negative Tobacco use other than smoking: Question Answer Notes Are you an other tobacco user? 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 [address] [facility] [place] [phone] [id number] Tere Junior Self - patient is the insured Medical (General) History Medical History History ICD Code Anxiety Back,Hip,and Knee pain Chicken pox keloids Psoriasis/eczema Raynauds syndrome Sciatica Anemia chronic sinusitis kidney cancer covid-19 Surgical History Surgery Date(Month/Year) Cysts removed 1980s Tonsillectomy 1998 01/2004, 03/2007 tubal ligation 2011 kidney surgery - left kidney removed 11/2020 [place] plantar fasciotomy right 2
--- OUTSIDE RECORDS SUMMARY | 2024-06-15 08:03 | XMS_ITS | Continuity of Care Document ---
Author Organization [facility], Main Office Address [address] [facility] [address] [place] [address] Care Team Providers Care Agriculture Consultant Name Role Phone LAURA NAIK Residential Substance Abuse Counselor VALERIO NIETO Search Engine Optimization Analyst [phone] GILMER MARTINO Gasoline Catalyst Operator ODILIA DOYLE Urologist TRESA BERRY Urologist BRADY SANCHEZ Primary Care Provider [phone] Assessment No assessment recorded. Plan of Treatment Reminders Order Date Submit Date Provider Last Modified By Organization Details Last Modified Time Details Appointments None recorded. Lab CMP, serum or plasma 2023 [facility] (Lab), [address] [place] [address], [address], 4 11:32:57 lipid panel, serum 2023 [facility] (Lab), [address] [place] [address], [address], 4 11:32:57 TSH, serum or plasma 2023 [facility] (Lab), [address] [place] [address], [address], 15:28:53 T4, free, serum 2023 [facility] (Lab), [address] [place] [address], [address], 15:28:53 HbA1c (hemoglobi n A1c), blood 2023 [facility] (Lab), [address] [place] [address], [address], 15:28:52 vitamin D, 25-hydroxy , total, serum 2023 [facility], [address], [place], [address], 15:28:00 CBC w/ auto diff 2023 [facility] (Lab), [address] [place] [address], [address], 15:28:53 Referral None recorded. Procedures None recorded. Surgeries None recorded. Imaging None recorded. Medication Orders sertraline 25 mg tablet 2023 [id number], [address] [facility], [place], [address], 15:27:20 Patient TargetsNo targets recorded. Patient Instructions Encounter Date Encounter Id Patient Instructions Last Modified By Organization Details Last Modified Time 05/02/2024 [id number] dash diet: care instructions [email or web address] Not available 05/02/2024 15:27:17 high blood pressure: care instructions [email or web address] Not available 05/02/2024 15:27:17 low sodium diet (2,000 milligram): care instructions [email or web address] Not available 05/02/2024 15:27:17 starting a weigh t loss plan: care instructions [email or web address] Not available 05/02/2024 15:27:16 To call or retur n for worsening or concerns [email or web address] Not available 05/02/2024 15:32:51 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 None Reported. Problems Name Problem SNOMED Code Status Onset Date Resolution Date Notes Provider Name and Address Organization Details Recorded Time Acute pharyngi tis 818425741 Completed 201101/16/2014 RECORDED 05/13/20 12 3:41PM BY ALLA BAUM MA, ANNOTATI ON/ADDEN DUM Peyman Healy MD [address] [facility] [address], [place], [address], [facility] 7 10:24:09 Adult health examinat ion Completed 201303/18/2016 Yvette martines [place] null, [facility] 6 09:23:31 Anxiety state [id number] Completed 201312/30/2016 Peyman Healy MD [address] [facility] [address], [place], [address], [facility] [place] 7 10:23:44 Backache [id number] Completed 201301/16/2014 IMPRESSI ON: > 1 WEEK OF WORSENIN G BACK PAIN, UNABLE TO STAND UPRIGHT, LEGS GIVING OUT. PAIN NOW RADIATIN G INTO BUTTOCKS AND ANTERIOR THIGHS. MRI REVEALED SCHMORL' S NODES, OTHERWIS E NEG. TO PSS FOR FURTHER EVAL.; RECORDED 10/05/19 14 2:28PM BY YVETTE NUNEZ MA, ANNOTATI ON/ADDEN DUM Susan Jiang PA-C [address] [facility] [address], [place], [address], [facility] [place] 6 15:45:51 Bronchit is [id number] Completed 201201/16/2014 RECORDED 07/28/19 13 1:45AM BY ALLA BAUM MA, ANNOTATI ON/ADDEN DUM Susan Jiang PA-C [address], [place], [address], [facility] [place] 6 15:45:51 Acute bronchit is [id number] Completed 201301/16/2014 IMPRESSI ON: LIKELY MOSTLY VIRAL SXS, HOWEVER DUE TO SMOKING STATUS AND RISK OF BACTERIA L BRONCHIT IS OR PNA TO TX WITH ABX. REST, FLUIDS, COUGH MED AT NIGHT PRN. CALL FOR WORSENIN G/PRN.; RECORDED 10/05/19 14 2:26PM BY YVETTE NUNEZ MA, ANNOTATI ON/ADDEN DUM Susan LICONA-C [address], [place], [address], [facility] [place] 6 15:45:51 Screenin g for malignan t neoplasm of cervix Completed 201101/16/2014 RECORDED 05/13/20 12 3:41PM BY ALLA BAUM MA, ANNOTATI ON/ADDEN DUM Susan LICONA-C [address], [place], [address], [facility] [place] 6 15:45:51 Cough [id number] Completed 201301/16/2014 IMPRESSI ON: POSSIBLE PNEUMONI A WITH THE FOCAL RALES. IF SHE DOES NOT IMPROVE WITH THE ABX SHE WILL GET A CXR.; RECORDED 10/05/19 14 2:26PM BY YVETTE NUNEZ MA, ANNOTATI ON/ADDEN DUM BRODY Roberts [address] [facility] [address], [place], [address], [facility] [place] 4 11:48:33 Tobacco dependen ce syndrome 96582005 Active 2013 GABRIELA Coburn, [facility] 6 09:24:07 Tobacco dependen ce syndrome 94679350 Completed 201301/16/2014 RECORDED 10/05/19 14 2:27PM BY YVETTE NUNEZ MA, ISAIAHATI ON/ADDEN DUM GABRIELA Coburn, [facility] 6 09:24:07 Diarrhea [id number] Completed 201301/16/2014 RECORDED 10/05/19 14 2:25PM BY YVETTE NUNEZ MA, ANNOTATI ON/ADDEN DUM Susan LICONA-C [address], [place], [address], [facility] [place] 6 15:45:51 Dysuria 59559179 Completed 201312/30/2016 RECORDED 10/05/19 14 2:30PM BY YVETTE NUNEZ MA, OFFICE VISIT Peyman Healy MD [address] [facility] [address], [place], [address], [facility] [place] 7 10:24:17 Elevated blood-pr essure reading without diagnosi s of hyperten margaret 281645564 Active 2013 Yvette martines [place] null, [facility] 7 11:51:58 Epigastr ic pain 28633006 Completed 201101/16/2014 IMPRESSI ON: PROBABLE GASTRITI S D/T RECENT NSAIDS AND PREDNISO NE TAPER, NO LONGER TAKING EITHER; RECORDED 05/13/20 12 3:41PM BY ALLA BAUM MA, ANNOTATI ON/ADDEN DUM Susan Jiang PA-C [address] [facility] [address], [place], [address], [facility] [place] 6 15:45:51 Follow-u p encounte r Completed 201201/16/2014 RECORDED 08/31/19 13 1:39PM BY RHONDA PETERSEN MA, ANNOTATI ON/ADDEN DUM Susan Jiang PA-C [address] [facility] [address], [place], [address], [facility] [place] 6 15:45:51 Malaise and fatigue 850681311 Completed 201101/16/2014 IMPRESSI ON: PER PT REPORT WITH SIG INCREASE D STRESS LEVELS RECENTLY . SEES THERAPIS T WEEKLY, REC INCREASI NG ZOLOFT DOSE. CHANGED FROM 25- 50 MG.; RECORDED 05/13/20 12 3:41PM BY ALLA BAUM MA, ANNOTATI ON/ADDEN DUM Susan Jiang PA-C [address] [facility] [address], [place], [address], [facility] [place] 6 15:45:51 Gastroes ophageal reflux disease 590150115 Active 2013 Yvette martines [place] null, [facility] 6 09:23:24 Headache 06408368 Completed 201301/16/2014 RECORDED 10/05/19 14 2:28PM BY YVETTE NUNEZ MA, ANNOTATI ON/ADDEN DUM Susan Jiang PA-C [address] [facility] [address], [place], [address], [facility] [place] 6 15:45:51 Glucose level outside referenc e range 331722619 Completed 201312/30/2016 Peyman Healy MD [address] [facility] [address], [place], [address], [facility] [place] 7 10:23:38 Hyperlip idemia 37836150 Completed 201312/30/2016 Brady Sanchez [facility] [address] [facility] [address], [place], [address], [facility] [place] 2 14:05:28 Low back pain [id number] Completed 201101/16/2014 RECORDED 05/13/20 12 3:41PM BY ALLA BAUM MA, ANNOTATI ON/ADDEN DUM Brady Sanchez [facility] [address] [facility] [address], [place], [address], [facility] 2 10:36:13 Acute lymphade nitis [id number] Completed 201301/16/2014 IMPRESSI ON: PT VERY ANXIOUS ABOUT THIS ISSUE. NO EASILY IDENTIFI ED SOURCE FOR THIS. GIVEN TENDERNE SS AND TOBACCO USE WILL TRY A COURSE OF ABX. PT REASSURE D THAT BASED ON HISTORY AND CURRENT EXAM FINDINGS TO SUGGEST THAT THIS IS A PATHOLOG IC PROCESS, MOST LIKELY REACTIVE . LABS DONE TO OFFER FURTHER REASSURA NCE. WILL NEED FURTHER EVAL IF PERSISTA NT OR ENLARGIN G.; RECORDED 10/05/19 14 2:26PM BY YVETTE NUNEZ MA, MARY CARMEN ON/ADDEN DUM Susan Jiang PA-C [address] [facility] [address], [place], [address], [facility] [place] 6 15:45:51 Administ ration of bacteria l and viral vaccine Completed 201001/16/2014 RECORDED 09/20/19 11 1:19PM BY BABITA ANDERSON PA-C, OFFICE VISIT Susan Jiang PA-C [address] [facility] [address], [place], [address], [facility] [place] 6 15:45:51 Psoriasi s 1631403 Active 2013 Yvette martines [place] null, [facility] 6 09:24:04 Disorder of rotator cuff 007185481 Completed 201201/16/2014 IMPRESSI ON: SUSPECT SUPRASPI NATUS TENDON TEAR. 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 FURTHER F/U THROUGH EMPLOYEE [facility]. SHE WILL TAKE NSAID PRN AND ICE. MAY RETURN TO WORK.; RECORDED 08/31/19 13 1:39PM BY RHONDA PETERSEN MA, MARY CARMEN ON/ADDMOHAN DUM Susan Jiang PA-C [address] [facility] [address], [place], [address], [facility] [place] 6 15:45:51 Adult health examinat ion Completed 201101/16/2014 RECORDED 05/13/20 12 3:41PM BY ALLA BAUM MA, MARY CARMEN ON/ Yvette martines [place] null, [facility] 6 09:23:31 Shoulder joint pain 319214385 Completed 201101/16/2014 STORY: R SIDED, X PAST TWO WEEKS WITHOUT HX OF TRAUMA OR INJURY RECENT OR PAST. WITH ASSOCIAT ED WEAKNESS , MINIMAL RESP TO NSAID. WILL CONTACT [facility] TO SEE IF THEY ARE ABLE TO SEE HER SOON, IF NOT WILL CHECK XRAYS WHILE AWAITING APPT.; RECORDED 05/13/20 12 3:41PM BY ALLA BAUM MA, ANNOTATI ON/ADDEN DUM Susan LICONA-C [address] [facility] [address], [place], [address], [facility] [place] 6 15:45:51 Disorder of upper respirat ory system 225918879 Completed 201101/16/2014 RECORDED 05/13/20 12 3:41PM BY ALLA BAUM MA, ANNOTATI ON/LUIS LICONA-C [address] [facility] [address], [place], [address], [facility] [place] 6 15:45:51 Disorder of bursa of shoulder region 04722883 Active 2013 GABRIELA Coburn, [facility] 6 09:24:00 Temporom andibula r joint disorder 02066741 Active 2013 GABRIELA Coburn, [facility] 7 11:51:54 Acute upper respirat ory infectio n 79790860 Completed 201101/16/2014 IMPRESSI ON: 5 DAYS, NO FEVERS AND NO FOCAL SIGNS ON EXAM. LIKELY VIRAL, ADVISED RE REST, FLUIDS AND OTHER SX SUPPORT. CALL FOR WORSENIN G/PRN.; RECORDED 05/13/20 12 3:41PM BY ALLA BAUM MA, ANNOTATI ON/LUIS DUM Susan RHODESC [address] [facility] [address], [place], [address], [facility] [place] 6 15:45:51 Vernal conjunct ivitis 644975312 Completed 201101/16/2014 RECORDED 05/13/20 12 3:41PM BY ALLA BAUM MA, ANNOTATI ON/ADDEN DUM Susan RHODESC [address], [place], [address], [facility] [place] 6 15:45:51 Candidal vulvovag initis 08669700 Completed 201301/16/2014 IMPRESSI ON: TENDS TO GET YEAST INFECTIO NS WITH ABX; RECORDED 10/05/19 14 2:26PM BY YVETTE NUNEZ MA, MARY CARMEN ON/LUIS Jiang PA-C [address], [place], [address], [facility] [place] 6 15:45:51 Acute pharyngi tis 875200765 Completed 201102/08/2014 RECORDED 05/13/20 12 3:41PM BY ALLA BAUM MA, MARY CARMEN ON/ADDEN GEORGE Healy MD [address] [facility] [address], [place], [address], [facility] [place] 7 10:24:09 Backache [id number] Completed 201302/08/2014 IMPRESSI ON: > 1 WEEK OF WORSENIN G BACK PAIN, UNABLE TO STAND UPRIGHT, LEGS GIVING OUT. PAIN NOW RADIATIN G INTO BUTTOCKS AND ANTERIOR THIGHS. MRI REVEALED SCHMORL' S NODES, OTHERWIS E NEG. TO PSS FOR FURTHER EVAL.; RECORDED 10/05/19 14 2:28PM BY YVETTE NUNEZ MA, MARY CARMEN ON/LUIS Jinag PA-C [address], [place], [address], [facility] [place] 6 15:45:51 Bronchit is [id number] Completed 201202/08/2014 RECORDED 07/28/19 13 1:45AM BY ALLA BAUM MA, MARY CARMEN ON/LUIS Jiang PA-C [address], [place], [address], [facility] [place] 6 15:45:51 Acute bronchit is [id number] Completed 201302/08/2014 IMPRESSI ON: LIKELY MOSTLY VIRAL SXS, HOWEVER DUE TO SMOKING STATUS AND RISK OF BACTERIA L BRONCHIT IS OR PNA TO TX WITH ABX. REST, FLUIDS, COUGH MED AT NIGHT PRN. CALL FOR WORSENIN G/PRN.; RECORDED 10/05/19 14 2:26PM BY YVETTE NUNEZ MA, ISAIAHATI ON/ADDEN DUM Susan [facility] [address], [place], [address], [facility] [place] 6 15:45:51 Screenin g for malignan t neoplasm of cervix Completed 201102/08/2014 RECORDED 05/13/20 12 3:41PM BY ALLA BAUM MA, MARY CARMEN ON/ADDEN DUM Susan Jiang NJ-C [address] [facility] [address], [place], [address], [facility] [place] 6 15:45:51 Cough [id number] Completed 201302/08/2014 IMPRESSI ON: PRODUCTI VE COUGH X 10D, + TOBACCO, WILL TX, ADVISE TO STOP SMOKING, RTC IF PERSISTE NT OR WORSENIN G SYMPTOMS .; RECORDED 10/05/19 14 2:26PM BY YVETTE NUNEZ MA, MARY CARMEN ON/ADDEN DUM BRODY Roberts [address] [facility] [address], [place], [address], [facility] [place] 4 11:48:33 Diarrhea [id number] Completed 201302/08/2014 RECORDED 10/05/19 14 2:25PM BY YVETTE NUNEZ MA, ISAIAHATI ON/ADDEN GEORGE Davis [facility] [address] [facility] [address], [place], [address], [facility] [place] 6 15:45:51 Epigastr ic pain 55737052 Completed 201102/08/2014 IMPRESSI ON: PROBABLE GASTRITI S D/T RECENT NSAIDS AND PREDNISO NE TAPER, NO LONGER TAKING EITHER; RECORDED 05/13/20 12 3:41PM BY ALLA BAUM MA, MARY CARMEN ON/ADDEN DUM Susan Apolinar PA-C [address] [facility] [address], [place], [address], [facility] 6 15:45:51 Follow-u p encounte r Completed 201202/08/2014 RECORDED 08/31/19 13 1:39PM BY RHONDA PETERSEN MA, ISAIAHATI ON/ADDEN DUM Susan Jiang PA-C [address] [facility] [address], [place], [address], [facility] [place] 6 15:45:51 Malaise and fatigue 042546916 Completed 201102/08/2014 IMPRESSI ON: PER PT REPORT WITH SIG INCREASE D STRESS LEVELS RECENTLY . SEES THERAPIS T WEEKLY, REC INCREASI NG ZOLOFT DOSE. CHANGED FROM 25- 50 MG.; RECORDED 05/13/20 12 3:41PM BY ALLA BAUM MA, ANNOTCHARLENE ON/ADDEN DUM Susanyimi LICONA-C [address] [facility] [address], [place], [address], [facility] 6 15:45:51 Headache [id number] Completed 201302/08/2014 RECORDED 10/05/19 14 2:28PM BY YVETTE NUNEZ MA, ISAIAHATI ON/ADDEN DUM Susan Apolinar PA-C [address] [facility] [address], [place], [address], [facility] 6 15:45:51 Low back pain 555069699 Completed 201102/08/2014 RECORDED 05/13/20 12 3:41PM BY ALLA BAUM MA, ANNOTATI ON/ADDEN DUM BRODY Roberts [address] [facility] [address], [place], [address], [facility] 2 10:36:13 Acute lymphade nitis 83515938 Completed 201302/08/2014 IMPRESSI ON: PT VERY ANXIOUS ABOUT THIS ISSUE. NO EASILY IDENTIFI ED SOURCE FOR THIS. GIVEN TENDERNE SS AND TOBACCO USE WILL TRY A COURSE OF ABX. PT REASSURE D THAT BASED ON HISTORY AND CURRENT EXAM FINDINGS TO SUGGEST THAT THIS IS A PATHOLOG IC PROCESS, MOST LIKELY REACTIVE . LABS DONE TO OFFER FURTHER REASSURA NCE. WILL NEED FURTHER EVAL IF PERSISTA NT OR ENLARGIN G.; RECORDED 10/05/19 14 2:26PM BY YVETTE NUNEZ MA, MARY ACRMEN ON/ADDEN DUM Susan Jiang PA-C [address], [place], [address], [facility] [place] 6 15:45:51 Administ ration of bacteria l and viral vaccine Completed 201002/08/2014 RECORDED 09/20/19 11 1:19PM BY BABITA ANDERSON PA-C, OFFICE VISIT Susan Jiang PA-C [address], [place], [address], [facility] [place] 6 15:45:51 Disorder of rotator cuff 160979345 Completed 201202/08/2014 IMPRESSI ON: SUSPECT SUPRASPI NATUS TENDON TEAR. 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 FURTHER F/U THROUGH EMPLOYEE [facility]. SHE WILL TAKE NSAID PRN AND ICE. MAY RETURN TO WORK.; RECORDED 08/31/19 13 1:39PM BY RHONDA PETERSEN MA, MARY CARMEN ON/ADDEN DUM Susan Jiang PA-C [address], [place], [address], [facility] [place] 6 15:45:51 Shoulder joint pain [id number] Completed 201102/08/2014 STORY: R SIDED, X PAST TWO WEEKS WITHOUT HX OF TRAUMA OR INJURY RECENT OR PAST. WITH ASSOCIAT ED WEAKNESS , MINIMAL RESP TO NSAID. WILL CONTACT [facility] TO SEE IF THEY ARE ABLE TO SEE HER SOON, IF NOT WILL CHECK XRAYS WHILE AWAITING APPT.; RECORDED 05/13/20 12 3:41PM BY ALLA BAUM MA, MARY CARMEN ON/ADDEN DUM Susan SeeToo-C [address] [facility] [address], [place], [address], [facility] [place] 6 15:45:51 Disorder of upper respirat ory system 817900439 Completed 201102/08/2014 RECORDED 05/13/20 12 3:41PM BY ALLA BAUM MA, MARY CARMEN ON/ADDEN DUM Susan Jiang NJ-C [address] [facility] [address], [place], [address], [facility] [place] 6 15:45:51 Acute upper respirat ory infectio n 73901418 Completed 201102/08/2014 IMPRESSI ON: 5 DAYS, NO FEVERS AND NO FOCAL SIGNS ON EXAM. LIKELY VIRAL, ADVISED RE REST, FLUIDS AND OTHER SX SUPPORT. CALL FOR WORSENIN G/PRN.; RECORDED 05/13/20 12 3:41PM BY ALLA BAUM MA, MARY CARMEN ON/ADDEN DUM Susan Jiang NJ-C [address] [facility] [address], [place], [address], [facility] [place] 6 15:45:51 Vernal conjunct ivitis 257518845 Completed 201102/08/2014 RECORDED 05/13/20 12 3:41PM BY ALLA BAUM MA, MARY CARMEN ON/ADDEN DUM Susan Jiang [employer] [address] [facility] [address], [place], [address], [facility] [place] 6 15:45:51 Candidal vulvovag initis 90970729 Completed 201302/08/2014 IMPRESSI ON: TENDS TO GET YEAST INFECTIO NS WITH ABX; RECORDED 10/05/19 14 2:26PM BY YVETTE NUNEZ MA, MARY CARMEN ON/ADDEN DUM Susan Jiang NJ-C [address] [facility] [address], [place], [address], [facility] [place] 6 15:45:51 Acute pharyngi tis 955659223 Completed 201102/09/2014 RECORDED 05/13/20 12 3:41PM BY ALLA BAUM MA, ISAIAHATI ON/ADDEN GEORGE Healy MD [address] [facility] [address], [place], [address], [facility] [place] 7 10:24:09 Backache [id number] Completed 201302/09/2014 IMPRESSI ON: > 1 WEEK OF WORSENIN G BACK PAIN, UNABLE TO STAND UPRIGHT, LEGS GIVING OUT. PAIN NOW RADIATIN G INTO BUTTOCKS AND ANTERIOR THIGHS. MRI REVEALED SCHMORL' S NODES, OTHERWIS E NEG. TO PSS FOR FURTHER EVAL.; RECORDED 10/05/19 14 2:28PM BY YVETTE NUNEZ MA, MARY CARMEN ON/LUIS Jiang PA-C [address] [facility] [address], [place], [address], [facility] [place] 6 15:45:51 Bronchit is [id number] Completed 201202/09/2014 RECORDED 07/28/19 13 1:45AM BY ALLA BAUM MA, MARY CARMEN ON/LUIS Jiang PA-C [address] [facility] [address], [place], [address], [facility] [place] 6 15:45:51 Acute bronchit is 69840294 Completed 201302/09/2014 IMPRESSI ON: LIKELY MOSTLY VIRAL SXS, HOWEVER DUE TO SMOKING STATUS AND RISK OF BACTERIA L BRONCHIT IS OR PNA TO TX WITH ABX. REST, FLUIDS, COUGH MED AT NIGHT PRN. CALL FOR WORSENIN G/PRN.; RECORDED 10/05/19 14 2:26PM BY YVETTE NUNEZ MA, MARY CARMEN ON/LUIS Jiang PA-C [address] [facility] [address], [place], [address], [facility] [place] 6 15:45:51 Screenin g for malignan t neoplasm of cervix Completed 201102/09/2014 RECORDED 05/13/20 12 3:41PM BY ALLA BAUM MA, ANNOTATI ON/ADDEN DUM Susan LICONA-C [address] [facility] [address], [place], [address], [facility] [place] 6 15:45:51 Cough [id number] Completed 201302/09/2014 IMPRESSI ON: PRODUCTI VE COUGH X 10D, + TOBACCO, WILL TX, ADVISE TO STOP SMOKING, RTC IF PERSISTE NT OR WORSENIN G SYMPTOMS .; RECORDED 10/05/19 14 2:26PM BY YVETTE NUNEZ MA, ANNOTCHARLENE ON/ADDEN DUM BRODY Roberts [address] [facility] [address], [place], [address], [facility] [place] 4 11:48:33 Diarrhea 53234090 Completed 201302/09/2014 RECORDED 10/05/19 14 2:25PM BY YVETTE NUNEZ MA, ANNOTCHARLENE ON/ADDEN DUM Susan LICONA-C [address] [facility] [address], [place], [address], [facility] [place] 6 15:45:51 Epigastr ic pain 92572285 Completed 201102/09/2014 IMPRESSI ON: PROBABLE GASTRITI S D/T RECENT NSAIDS AND PREDNISO NE TAPER, NO LONGER TAKING EITHER; RECORDED 05/13/20 12 3:41PM BY ALLA BAUM MA, ANNOTCHARLENE ON/ADDEN GEORGE LICONA-C [address] [facility] [address], [place], [address], [facility] [place] 6 15:45:51 Follow-u p encounte r Completed 201202/09/2014 RECORDED 08/31/19 13 1:39PM BY RHONDA PETERSEN MA, ANNOTATI ON/ADDEN DUM Susan Jiang PA-C [address], [place], [address], [facility] [place] 6 15:45:51 Malaise and fatigue [id number] Completed 201102/09/2014 IMPRESSI ON: PER PT REPORT WITH SIG INCREASE D STRESS LEVELS RECENTLY . SEES THERAPIS T WEEKLY, REC INCREASI NG ZOLOFT DOSE. CHANGED FROM 25- 50 MG.; RECORDED 05/13/20 12 3:41PM BY ALLA BAUM MA, ANNOTATI ON/ADDEN DUM Susan Jiang PA-C [address] [facility] [address], [place], [address], [facility] [place] 6 15:45:51 Headache 13643663 Completed 201302/09/2014 RECORDED 10/05/19 14 2:28PM BY YVETTE NUNEZ MA, ANNOTATI ON/ADDEN DUM Susan Jiang MONAE-C [address], [place], [address], [facility] [place] 6 15:45:51 Low back pain 499977522 Completed 201102/09/2014 RECORDED 05/13/20 12 3:41PM BY ALLA BAUM MA, ANNOTATI ON/ADDEN DUM BRODY Roberts [address] [facility] [address], [place], [address], [facility] 2 10:36:13 Acute lymphade nitis 06816427 Completed 201302/09/2014 IMPRESSI ON: PT VERY ANXIOUS ABOUT THIS ISSUE. NO EASILY IDENTIFI ED SOURCE FOR THIS. GIVEN TENDERNE SS AND TOBACCO USE WILL TRY A COURSE OF ABX. PT REASSURE D THAT BASED ON HISTORY AND CURRENT EXAM FINDINGS TO SUGGEST THAT THIS IS A PATHOLOG IC PROCESS, MOST LIKELY REACTIVE . LABS DONE TO OFFER FURTHER REASSURA NCE. WILL NEED FURTHER EVAL IF PERSISTA NT OR ENLARGIN G.; RECORDED 10/05/19 14 2:26PM BY YVETTE NUNEZ MA, MARY CARMEN ON/ADDMOHAN DUM Susan Jiang PA-C [address] [facility] [address], [place], [address], [facility] [place] 6 15:45:51 Administ ration of bacteria l and viral vaccine Completed 201002/09/2014 RECORDED 09/20/19 11 1:19PM BY BABITA ANDERSON PA-C, OFFICE VISIT Susan Jiang PA-C [address] [facility] [address], [place], [address], [facility] 6 15:45:51 Disorder of rotator cuff [id number] Completed 201202/09/2014 IMPRESSI ON: SUSPECT SUPRASPI NATUS TENDON TEAR. 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 FURTHER F/U THROUGH EMPLOYEE HE[facility]. SHE WILL TAKE NSAID PRN AND ICE. MAY RETURN TO WORK.; RECORDED 08/31/19 13 1:39PM BY RHONDA PETERSEN MA, MARY CARMEN ON/LUIS Jiang PA-C [address] [facility] [address], [place], [address], [facility] [place] 15:45:51 Shoulder joint pain [id number] Completed 201102/09/2014 STORY: R SIDED, X PAST TWO WEEKS WITHOUT HX OF TRAUMA OR INJURY RECENT OR PAST. WITH ASSOCIAT ED WEAKNESS , MINIMAL RESP TO NSAID. WILL CONTACT [facility] TO SEE IF THEY ARE ABLE TO SEE HER SOON, IF NOT WILL CHECK XRAYS WHILE AWAITING APPT.; RECORDED 05/13/20 12 3:41PM BY ALLA BAUM MA, MARY CARMEN ON/LUIS Jiang PA-C [address] [facility] [address], [place], [address], [facility] [place] 6 15:45:51 Disorder of upper respirat ory system [id number] Completed 201102/09/2014 RECORDED 05/13/20 12 3:41PM BY ALLA BAUM MA, MARY CARMEN ON/ADDEN DUM Susan Apolinar LICONA-C [address], [place], [address], [facility] [place] 6 15:45:51 Acute upper respirat ory infectio n [id number] Completed 201102/09/2014 IMPRESSI ON: 5 DAYS, NO FEVERS AND NO FOCAL SIGNS ON EXAM. LIKELY VIRAL, ADVISED RE REST, FLUIDS AND OTHER SX SUPPORT. CALL FOR WORSENIN G/PRN.; RECORDED 05/13/20 12 3:41PM BY ALLA BAUM MA, MARY CARMEN ON/ADDEN DUM Susanyimi Ruffinden PA-C [address], [place], [address], [facility] [place] 6 15:45:51 Vernal conjunct ivitis [id number] Completed 201102/09/2014 RECORDED 05/13/20 12 3:41PM BY ALLA BAUM MA, MARY CARMEN ON/ADDEN DUM Susanyimi LICONA-C [address], [place], [address], [facility] [place] 6 15:45:51 Candidal vulvovag initis 48667070 Completed 201302/09/2014 IMPRESSI ON: TENDS TO GET YEAST INFECTIO NS WITH ABX; RECORDED 10/05/19 14 2:26PM BY YVETTE NUNEZ MA, MARY CARMEN ON/LogoproMOHAN DUM Susanyimi LICONA-C [address], [place], [address], [facility] [place] 6 15:45:51 Wheezing symptom 842997813 Completed 12/30/2016 Peyman Healy MD [address], [place], [address], [facility] [place] 7 10:24:02 Acute sinusiti s 28805401 Completed 12/30/2016 Peyman Healy MD [address], [place], [address], [facility] 7 10:23:40 Acute asthma 893099173 Completed 12/30/2016 Peyman Healy MD [address], [place], [address], [facility] 7 10:24:04 Acute allergic reaction 513558388 Completed 12/30/2016 Peyman Healy MD [address], [place], [address], [facility] [place] 7 10:23:59 Fatigue 13649683 Completed 12/30/2016 Brady Sanchez [facility] [address], [place], [address], [facility] [place] 2 14:05:52 Irritabl e bowel syndrome 23128757 Active Susan Jiang PA-C [address], [place], [address], [facility] 6 15:45:51 Acute pharyngi tis 090357850 Completed 12/30/2016 Peyman Healy MD [address], [place], [address], [facility] 7 10:24:09 Pain in calf 913194128 Completed 12/30/2016 Peyman Healy MD [address], [place], [address], [facility] 7 10:24:07 Synovial cyst of knee 159089803 Completed 12/30/2016 Peyman Healy MD [address], [place], [address], [facility] 7 10:23:54 Lumbar sprain 870108471 Completed 12/30/2016 Peyman Healy MD [address], [place], [address], [facility] [place] 7 10:23:49 Sprain pelvic ligament 584535250 Completed 12/30/2016 Peyman Healy MD [address] [facility] [address], [place], [address], [facility] 7 10:23:46 Inflamma tion of sacroili ac joint 20664082 Completed 12/30/2016 Peyman Healy MD [address] [facility] [address], [place], [address], [facility] [place] 7 10:24:21 Anemia of pregnanc y 82489582 Completed 201512/30/2016 Peyman Healy MD [address] [facility] [address], [place], [address], [facility] [place] 7 10:23:35 Generali zed anxiety disorder 55417707 Active 2016 Yvette martines MA null, [facility] 7 11:53:56 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 no other organs. nephrect sandoval 09/2019 Removal Reason: radical nephrect sandoval 09/2019 Lynda ortega [facility] 3 15:23:27 Neoplasm of left kidney [id number] 081229 Completed 202004/27/2023 Removal Reason: radical nephrect sandoval 09/2019 Lynda ortega [facility] 3 15:23:00 Low back pain 316089580 Active 2021 RECORDED 05/13/20 12 3:41PM BY ALLA BAUM MA, ANNOTATI ON/ADDEN DUM Brady Sanchez, [facility] [address] [address], [place], [address], [facility] [place] 2 10:36:13 Plantar fasciiti s of right foot 01301868892 776737 Active 2021 Brady Sanchez, [facility] [address] [address], [place], [address], [facility] [place] 2 13:53:56 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 05253988549 763361 Active 2021 Brady Sanchez, [facility] [address] [address], [place], [address], [facility] [place] 2 13:54:13 Hyperlip idemia 24020928 Active 2021 Brady Sanchez, [address] [address], [place], [address], [facility] [place] 2 14:05:27 Fatigue 86750439 Active 2021 Brady Sanchez, [facility] [address] [address], [place], [address], [facility] [place] 2 14:05:52 Impaired fasting glycemia 873392991 Active 2021 Brady Sanchez, [facility] [address] [address], [place], [address], [facility] [place] 2 14:05:59 Pain of left hip joint 77462831436 9100 Active 2021 Brady Sanchez, [facility] [address] [address], [place], [address], [facility] [place] 2 11:29:28 [facility]1983965 [facility] 15:[facility] Cough 27664549 Active 2023 IMPRESSI ON: PRODUCTI VE COUGH X 10D, + TOBACCO, WILL TX, ADVISE TO STOP SMOKING, RTC IF PERSISTE NT OR WORSENIN G SYMPTOMS .; RECORDED 10/05/19 14 2:26PM BY YVETTE NUNEZ MA, ANNOTATI ON/ADDEN DUM Brady Sanchez [address] [address], [place], [address], [facility] [place] 4 11:48:33 COVID-19 524728492 Active 2023 Brady Sanchez [address] [address], [place], [address], [facility] [place] 4 12:11:32 Fever 548401504 Active 2023 Brady Sanchez [address] [address], [place], [address], [facility] [place] 4 12:11:36 Vitamin D deficien cy 29918769 Active 2023 Brady Sanchez [address] [address], [place], [address], [facility] [place] 4 15:27:42 Problem Notes None recorded. Procedures Surgical History Date Name Laterality Status Provider Name and Address Organization Details Recorded Time 08/30/19 24 Most Recent Mammogram completed Emili Martinez [facility] 08/31/2023 10:24:02 07/14/19 23 Mammogram Screening completed Danielle Rodriguez [facility] 07/14/2022 16:24:36 05/05/20 22 fasciotomy of foot completed BRODY Roberts [address] [address], [place], [address], [facility] [place] 04/27/2023 09:18:39 09/07/19 20 radical nephrectomy completed Greta Glasgow [facility] 09/11/2019 15:28:04 09/07/19 20 Cancer Surgery completed Sherlyn Brown MA [facility] 03/27/2021 08:40:34 07/14/19 17 Date of Last Colonoscopy completed Yvette slaughter MA [facility] 12/30/2016 10:13:20 07/14/19 17 Colonoscopy completed Brady Sanchez, [facility] [address] [facility] [address], [place], [address], [facility] [place] 02/14/2019 15:53:00 02/11/20 07 delivery completed Yvette slaughter [facility] 02/14/2019 15:32:01 01/14/20 04 Caesarean Section completed Yvette slaughter [facility] 02/14/2019 15:31:51 09/03/19 00 Tonsillectomy completed Sherlyn Brown MA [facility] 03/27/2021 08:40:34 Tubal Ligation completed Yvette slaughter MA [facility] 11/21/2014 14:01:10 Tonsillectomy completed Sherlyn Brown MA [facility] 03/27/2021 08:40:34 Imaging Results None recorded. Procedure Notes None recorded. Medical Equipment None Reported. Allergies Allergen ID Allergen Name Allergen Category Reaction Reaction Severity Criticality Documentation Date Start Date Code Code System Note Provider Name and Address Organization Details Recorded Time amoxicill in medicatio n other Not available Not available 10/18/2014 723 RxNorm cause s yeast infec tion in the past GABRIELA Coburn [facility] 5 12:49:17 2838 Keflex medicatio n itching Not available Not available 01/16/20142013 00783 7 RxNorm GABRIELA Coburn [facility] 5 12:49:17 2839 Medicinal product containin g penicilli n and acting as antibacte rial agent (product) medicatio n Not available Not available Not available 01/16/20142013 50026 05 SNOMED REACT ION: AMOX, CAUSE S YEAST INFEC TIONS ; COMME NT: RECOR DED 10/04 2:30P M BY SRINIVAS HUERTA MA, OFFIC E VISIT ; Peyman Healy MD [address] [facility] [address], [place], [address], [facility] 5 16:56:28 35436 Non-stero idal anti-infl ammatory agent (product) medicatio n other moderate low 04/21/2022 02674 005 SNOMED 1 BRODY Schrader [address] [facility] [address], [place], [address], [facility] 2 13:55:13 Medications Name Sig Start Date Stop Date Status Note LastModified by Organization Details LastModified Time diclofena c 3% / baclofen 2% / gabapenti n 6% / bupivacai ne hcl 1% / ketamine 10% Apply 1-3 grams to the affected area 3-4 times daily (FEET) 04/21 completed Not Available Not Available Not Available cyclobenz aprine 10 mg tablet TAKE ONE TABLET ORALLY 3 TIMES A DAY NEEDED FOR MUSCLE SPASM active Not Available Not Available No t Available azithromy uriel 250 mg capsule DIRECTED 02/12 completed RECORDED 02/23/20 13 11:00AM BY BABITA ANDERSON PA-C, MEDICATI ON AUTO-PACO CTIVATIO N;TAKE TWO TABS DAY, THEN ONE TAB DAILY DAYS 2-5 Not Available Not Available Not Available prednison e 10 mg tablet Take 1 tablet every day by oral route with meals for 5 days. 03/27 completed Not Available Not Available Not Available nicotine 14 mg/24 hr daily transderm al patch Apply 1 patch every day by transder mal route as directed for 30 days. 08/28 completed Not Available Not Available Not Available clindamyc in HCl 300 mg capsule 06/14 completed Not Available Not Available Not Available azithromy uriel 250 mg tablet TAKE 2 TABLETS BY MOUTH TODAY, THEN TAKE 1 TABLET DAILY FOR 4 DAYS DIRECTED 05/02 completed Not Available Not Available Not Available fluconazo le 150 mg tablet Take 1 tablet every day by oral route for 1 day. 04/19 completed Not Available Not Available Not Available benzonata te 200 mg capsule 04/21 completed Not Available Not Available Not Available ondansetr on HCl 4 mg tablet Take 1 tablet 3 times a day by oral route as directed for 5 days. 03/27 completed Not Available Not Available Not Available prednison e 20 mg tablet TAKE 1 TABLET BY MOUTH ONCE DAILY FOR 5 DAYS 05/02 completed Not Available Not Available Not Available betametha sone, augmented 0.05 % topical cream 06/14 completed Not Available Not Available Not Available alclometa sone 0.05 % topical cream 08/28 completed Not Available Not Available Not Available diphenoxy late-atro pine 2.5 mg-0.025 mg tablet 4 TIMES PER DAY NEEDED FOR DIARRHEA 08/30 completed RECORDED 08/30/19 14 2:13PM BY ALLA BAUM MA, OFFICE VISIT; Not Available Not Available Not Available penicilli n V potassium 500 mg tablet Take 1 tablet twice a day by oral route for 10 days. 02/14 completed Not Available Not Available Not Available Flonase 50 mcg/actua tion nasal spray,florinda pension SPRAY 2 SPRAY(S) EVERY DAY BY INTRANAS AL ROUTE 03/26 completed Not Available Not Available Not Available sulfameth oxazole 800 mg-trimet hoprim 160 mg tablet TAKE 1 TABLET BY MOUTH EVERY 12 HOURS FOR 7 DAYS 09/12 completed Not Available Not Available Not Available tramadol 50 mg tablet Take 1 tablet every 6 hours by oral route for 7 days. 2015 active Not Available Not Available Not Avai lable vancomyci n 125 mg capsule TAKE 1 CAPSULE BY MOUTH FOUR TIMES A DAY 03/16 completed Not Available Not Available Not Available lorazepam 0.5 mg tablet ONCE DAILY NEEDED STRESS 09/30 completed RECORDED 08/30/19 14 3:03PM BY ALLA BAUM MA, MEDICATI ON AUTO-PACO CTIVATIO N; Not Available Not Available Not Available hyoscyami ne ER 0.375 mg tablet,ex tended release,1 2 hr 08/28 completed Not Available Not Available Not Available hyoscyami ne 0.125 mg disintegr ating tablet Place 1 tablet 4 times a day by sublingu al route as directed for 30 days. 08/28 completed Not Available Not Available Not Available hyoscyami ne sulfate 0.125 mg tablet Take 1 tablet 3 times a day by oral route as needed for 90 days. active Not Available Not Available No t Available olopatadi ne 0.1 % eye drops 2 TIMES A DAY FOR EYE ALLERGIE S 05/13 completed RECORDED 05/13/20 12 3:43PM BY ALLA BAUM MA, OFFICE VISIT; Not Available Not Available Not Available ursodiol 300 mg capsule TAKE 3 CAPSULES BY MOUTH EVERY DAY active Not Available Not Available No t Available sertralin e 25 mg tablet Take 1 tablet every day by oral route as directed for 90 days. active Not Available Not Available No t Available hydroxyzi ne HCl 25 mg tablet TAKE 1 TABLET BY MOUTH THREE TIMES A DAY NEEDED FOR 10 DAYS 03/26 completed Not Available Not Available Not Available codeine 10 mg-guaife nesin 100 mg/5 mL oral liquid TAKE 10 ML EVERY 4-6 HOURS BY ORAL ROUTE NEEDED FOR 10 DAYS. 04/21 completed Not Available Not Available Not Available halobetas ol propionat e 0.05 % topical cream 06/14 completed Not Available Not Available Not Available mupirocin 2 % topical ointment APPLY A SMALL AMOUNT TO THE AFFECTED AREA BY TOPICAL ROUTE 2 TIMES PER DAY 04/19 completed Not Available Not Available Not Available Tylenol-C odeine #3 300 mg-30 mg tablet EVERY 6 HOURS NEEDED FOR PAIN 11/04 completed RECORDED 11/11/19 12 10:28AM BY BABITA ANDERSON PA-C, MEDICATI ON AUTO-PACO CTIVATIO N; Not Available Not Available Not Available levofloxa uriel 500 mg tablet DAILY 09/07 completed RECORDED 02/08/20 13 10:54AM BY MOANE ARGUETA, MEDICATI ON AUTO-PACO CTIVATIO N; Not Available Not Available Not Available Citrucel (sucrose) oral powder 1 scoop in water daily 12/30 completed Not Available Not Available Not Available sertralin e 50 mg tablet TAKE 1 TABLET BY MOUTH EVERY DAY DIRECTED active Not Available Not Available No t Available metronida zole 0.75 % topical gel 08/28 completed Not Available Not Available Not Available doxycycli ne hyclate 100 mg tablet Take 1 tablet twice a day by oral route for 7 days. 09/02 completed Not Available Not Available Not Available amoxicill in 875 mg-potass ium clavulana te 125 mg tablet Take 1 tablet every 12 hours by oral route for 10 days. 2014 active Not Available Not Available Not Avai lable nicotine 7 mg/24 hr daily transderm al patch Apply 1 patch every day by transder mal route as directed for 14 days. 03/26 completed Not Available Not Available Not Available clindamyc in phosphate 1 % topical solution apply thin layer to face daily 08/28 completed Not Available Not Available Not Available Sprintec (28) 0.25 mg-35 mcg tablet DAILY 04/30 completed RECORDED 04/30/20 10 12:57PM BY MT FLORES, OFFICE VISIT;DR TRACY Irizarry Not Available Not Available Not Available azelaic acid 15 % topical gel 03/26 completed Not Available Not Available Not Available Guiatuss EVERY 4 HOURS NEEDED 02/14 completed RECORDED 02/23/20 13 11:00AM BY BABITA ANDERSON PA-C, MEDICATI ON AUTO-PACO CTIVATIO N; Not Available Not Available Not Available multivita min 1 tablet po daily active Not Available Not Available No t Available ProAir HFA 90 mcg/actua tion aerosol inhaler INHALE 2 PUFFS EVERY 4 HRS 06/14 completed Not Available Not Available Not Available fluocinol one acetonide oil 0.01 % ear drops APPLY TO EARS TWICE DAILY NEEDED. active Not Available Not Available No t Available Probiotic 1 tab daily orally 04/19 completed Not Available Not Available Not Available Cordran Tape Large Roll 4 mcg/cm2 06/14 completed Not Available Not Available Not Available Drysol 20 % topical solution Apply 1 applicat ion twice a week by topical route. 03/26 completed Not Available Not Available Not Available Readi-Cat 2 2 % (w/v) oral suspensio n USE DIRECTED PER CT DEPARTME NT 05/27 completed Not Available Not Available Not Available Vitals Date Recorded Body height Body mass index (BMI) Body weight Heart rate Oxygen saturation Oxygen saturation in Arterial blood by Pulse oximetry Body temperature Systolic blood pressure Diastolic blood pressure Provider Name and Address Organization Details Last Updated DateTime 4 158.75 cm 34 kg/m2 52317.9 6 g 72 /min 99 % 99 % 98.2 [degF] 147 mm[Hg] 79 mm[Hg] Maru Sewell MA [facility] 4 15:21:08 Date Recorded Systolic blood pressure Diastolic blood pressure Provider Name and Address Organization Details Last Updated DateTime 05/02/2024 120 mm[Hg] 66 mm[Hg] MILA Roberts [address] [address], [place], [address], [facility] 05/02/2024 16:01:22 Social History Question Answer Notes LastModified by Organizat ion Details LastModified Time Tobacco Smoking Status Former Smoker pt quit 09/2019 Sherlyn Brown MA [facility], [facility] 03/26/2020 10:39:09 Do You Have An Advance Directive? Yes Signed On 11/21/2014 Information not available 04/23/2022 What Is Your Level Of Alcohol Consumption? Occasional Information not available 04/23/2022 Is Blood Transfusion Acceptable In An Emergency? Yes Information not available 06/05/2015 What Is Your Level Of Caffeine Consumption? Moderate 2 Servings Of Coffee Daily, Occasional Soda Information not available 04/27/2023 How Much Tobacco Do You Chew? None Information not available 06/05/2015 Are You Currently Employed? No Full-time Information not available 04/23/2022 What Type Of Diet Are You Following? REGULAR Information not available 11/21/2014 Which Illicit Or Recreational Drugs Have You Used? None Information not available 04/24/2015 Do You Or Have You Ever Used E-cigarettes Or Vape? 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 1-5yearssincel adriana [email or web address] Information not available 03/27/2021 Live Alone Or With Others? With Others 2 Children Information not available 04/23/2022 Do You Take Precautions To Prevent Distracted Driving? Yes Information not available 06/05/2015 How Often Do You Need To Have Someone Help You When You Read Instructions, Pamphlets, Or Other Written Material From Your Doctor Or Pharmacy? Never Information not available 06/05/2015 Have You Served In The ? No Information not available 03/18/2016 Have You Or Anyone In Your Household Had Any Of The Following Symptoms In The Last 14 Days: Sore Throat, Cough, Chills, Body Aches For Unknown Reasons, Shortness Of Breath For Unknown Reasons, Loss Of Smell, Loss Of Taste, Fever At Or Greater Than 100 Degrees Fahrenheit? No Information not available 03/26/2020 Are You Or Anyone In Your Household A Health Care Provider Or Emergency Responder? Yes [email or web address] Information not available 03/26/2020 To The Best Of Your Knowledge Have You Been In Close Proximity To Any Individual Who Tested Positive For COVID-19? No [email or web address] Information not available 03/26/2020 Have You Recently Traveled To A COVID-19 High Risk Area Or Gathering In The Last 10 Days? No [email or web address] Information not available 07/23/2020 What Was The Date Of Your Most Recent Tobacco Screening? 05/02/2024 [email or web address] Information not available 05/02/2024 How Many Children Do You Have? 2 Gabriel And Jas Information not available 12/30/2016 Do You Use Your Seat Belt Or Car Seat Routinely? Yes [email or web address] Information not available 03/27/2021 Seat Belts Used Routinely Yes Information not available 04/23/2022 Are You Sexually Active? No Information not available 12/30/2016 Smoke Alarm In Home Yes Information not available 04/23/2022 Do You Have Smoke And Carbon Monoxide Detectors In Your Home? Yes Information not available 03/27/2021 At What Age Did You Start Smoking Tobacco? 15 Information not available 11/21/2014 Are You Passively Exposed To Smoke? No Information not available 06/05/2015 Do You Or Have You Ever Used Smokeless Tobacco? Never Used Smokeless Tobacco Information not available 02/14/2019 How Much Tobacco Do You Smoke? No Information not available 03/26/2020 Do You Use Sunscreen Routinely? Yes Information not available 06/05/2015 How Many Years Have You Smoked Tobacco? 29 Information not available 02/14/2019 Do You Or Have You Ever Used Any Other Forms Of Tobacco Or Nicotine? No Information not available 04/23/2022 Sex: Unknown Functional Status Question Answer Note LastModified by Organizat ion Details LastModified Time Are you able to walk? YESWOREST Information not available 04/23/2022 Are you able to care for yourself? Yes Information not available 11/21/2014 What is your exercise level? Moderate 2 fitness classes per week and gym regularly. Information not available 05/02/2024 Mental Status None recorded. Family History Relationship Description Onset Age of this Age Resolved Age Notes LastModified by Organization Details LastModified Time Father Diabetes mellitus [email or web address] Not available 13:56:24 Father Heart disease [email or web address] Not available 13:56:24 Father Essential hypertension Not available 10:40:59 Father Malignant tumor of lung [email or web address] Not available 03/27 08:40:16 Father Kidney disease Not available 03/27 08:40:16 Mother Malignant neoplasm of uterus molar pregna ncy- hyster ectomy Not available 04/23/2022 10:40:59 Mother Opioid dependence Not available 10/20 /2022 10:40:59 Mother Substance abuse [email or web address] Not available 03/27 08:40:16 Mother Seizure disorder [email or web address] Not available 03/27 08:40:16 Mother Osteoporosis [email or web address] Not vasile ilable 03/27/2021 08:40:16 Mother Disorder of thyroid gland Not available 2021 10:40:59 Brother Essential hypertension 45 possib ly Not available 04/23/2022 10:40:59 Brother Alcohol abuse [email or web address] Not available 2017 15:39:14 Brother Depressive disorder Not available 03/27 08:40:16 Maternal Grandfather Opioid dependence Not available 04/23 10:40:59 Unspecified Relation Substance abuse Not available 03/27 08:40:16 Son Allergy Not available 1 10:40:59 Medical History Condition Response Coronary Artery Disease N Gout N Other N Blood Diseases N Kidney Stones N Hyperthyroidism N Breast Cancer N mrsa exposure N Lung Disease N Hypothyroidism N Depression N COPD N Defects or Inherited Disease N Developmental or Behavioral Disorders N Breast Problem N Anesthesia Complications Y Headaches/Migraines N Varicose Veins N Anxiety Disorder Y Muscle, Joint, or Bone Problems N Obesity N Vision or Eye Problems N Arthritis N Head Injury/Concussion N Infertility N Polyps N Mental Disorder N Congenital Anomalies N Acid Reflux (GERD) Y Cancer Y Stroke N ADHD N Endometriosis N High Cholesterol N Liver Disease Y Headaches N Fibromyalgia N Kidney Disease N Heart Problems N Ear or Hearing Problems N Hospitalizations N Thyroid Problems N GI Problems Y Developmental Delay N Acne N Eating Disorder N Skin Problems Y Anemia Y Constipation N Bladder Problems N Mental Illness N Diabetes N Ovarian Cancer N Bedwetting N Blood Transfusions N Heart Problems/Murmur N Seizures/Epilepsy N Tuberculosis N AIDS/HIV N Congestive Heart Failure (CHF) N Eczema N Abuse/Domestic Violence N Diverticulitis N Asthma N Allergies Y Reflux/GERD N Hepatitis N Heart Disease N Pulmonary Embolism N Hypertension N Chicken Pox N Autism Spectrum Disorder (ASD) N Osteoporosis N Gynecological History Statement/Question Response Flow Heavy Duration of Flow (days) 4 Age at Menarche 12 Current Control Method Tubal Ligat ion Most Recent Mammogram 08/30/2023 Age at First Child 28 Date of Last Colonoscopy 07/14/2016 Frequency of Cycle (Q days) 28 Sexually Active? Y Menses Monthly N Date of Last Pap Smear Sexual Problems? N LMP Approximate Desired Control Method N/A Obstetrics History GPAL:G 0 P 0 0 0 0 Immunizations Vaccine Type Date Status Note Provider Nam e and Address Organization Details Recorded Time Influenza, split virus, trivalent, preservative [facility]:11[facility]22 Influenza, split virus, quadrivalent, preservative 8 [facility] 10:03:42 Influenza, split virus, quadrivalent, preservative 9 [facility] 09:27:56 COVID-19, mRNA, LNP-S, PF, 100 mcg/0.5mL dose or 50 mcg/0.25mL dose 0 [facility] 10:18:38 Influenza, split virus, quadrivalent, PF 1 [facility] 10:18:38 COVID-19, mRNA, LNP-S, PF, 100 mcg/0.5mL dose or 50 mcg/0.25mL dose 1 [facility]21 10:18:38 Influenza, split virus, quadrivalent, PF 7 [facility] 10:18:39 Influenza, split virus, trivalent, preservative 5 [facility]24[facility]21 10:23:35 Influenza, split virus, quadrivalent, PF 3 [facility]13[facility]23 11:16:35 Tdap 1 completed Not Available [facility] 01/16/2014 13:38:10 Influenza, split virus, quadrivalent, PF 0 completed GABRIELA Waller, [facility] 03/26/2020 10:48:58 Tdap 1 completed GABRIELA Carrizales, [facility] 03/27/2021 10:06:49 Influenza, split virus, quadrivalent, PF 2 completed BRODY Roberts [address], [address], [facility] [place]/23/[place] 11:29:33 Past Encounters Encounter ID Performer Location Encounter Start Date Encounter Closed Date Diagnosis/Indication Diagnosis SNOMED-CT Code Diagnosis ICD10 Code [id number] BRODY Roberts Main Office [address] [address] 05/02/2024 15:16:10 05/02/2024 15:45:05 Adult health examination 841277380 Z00.00 Primary bi liary cholangitis 26869392 K74.3 History of malignant neoplasm of kidney 044205624 Z85.528 Generalize d anxiety disorder 83571418 F41.1 Hyperlipidemia 32663177 E78.5 Impaired f asting glycemia 144928968 R73.01 Fatigue 36522525 R53.83 Elevated blood-pressure reading without diagnosis of hypertension 300565267 R03.0 Obesity 354209454 E66.9 Body mass index 30+ - obesity 115629071 Z68.34 Vitamin D deficiency 347 24276 E55.9 Health Concerns Section Related Observation LastModified by Organization Detai ls LastModified Time None Recorded Concern Status LastModified by Organization Details LastModified Time None Recorded Payers Encounter Date Sequence Insurance Name Policy Number Policy Ward Covered Member ID Ward Member ID Guarantor Name 05/02/2024 1 [employer] [facility] [id number] Tere Junior [id number] Tere Junior Notes Date Note Type Note Provider Name and Address Organization Details Recorded Time 05/02/2024 text/html Generic HPI TemplateReported bypatient.Notes:Presen ts for PE,No concerns but BP is high. No headaches, sometimes does get chest discomfort at random times, no palpitationshas lost 4 lbs and 13 inches since January. is having hot flashes, night sweats, mood changes Brady Sanchez, [facility] [address] [address], [place], [address], [facility] [place] 05/02/2024 16:02:35 OBGyn Episode No OBEpisode recorded.
--- OUTSIDE RECORDS SUMMARY | 2024-06-15 08:03 | XMS_ITS | Data Portability ---
Author Organization [facility], Main Office Address [address] [place] [address] Care Team Providers Care Digital Sales Executive Name Role Phone LAURA NAIK Lunch Wagon Operator SANDRA NEITO Endoscopy Technican GILMER MARTINO Railroad Signal And Switch Operator [phone] ODLIIA DOYLE Urologist TRESA BERRY Urologist BRADY SANCHEZ Primary Care Provider Assessment No assessment recorded. Plan of Treatment Reminders Order Date Submit Date Provider Last Modified By Organization Details Last Modified Time Details Appointments None recorded. Lab CMP, serum or plasma 2022 023 [facility] (Lab), [address] [place] [address], [address], 3 11:26:05 lipid panel, serum 2022 023 [facility] (Lab), [address] [place] [address], [address], 3 11:26:06 TSH, serum or plasma 2022 023 [facility] (Lab), [address] [place] [address], [address], 3 11:55:36 T4, free, serum 2022 023 [facility] (Lab), [address] [place] [address], [address], 3 09:18:01 HbA1c (hemoglobi n A1c), blood 2022 023 [facility] (Lab), [address] [place] [address], [address], 3 09:18:01 CBC w/ auto diff 2022 023 [facility] (Lab), [address] [place] [address], [address], 3 09:18:01 rapid flu (A+B) 2023 024 MANISHA In-Office Order, Internal Use Only DO Not Attach Compendium DO Not Attach Compendium, Do Not Delete/merge, [id number] 4 11:40:33 rapid SARS CoV 2 Ag, QL IA, respirator y specimen 2023 024 MANISHA In-Office Order, Internal Use Only DO Not Attach Compendium DO Not Attach Compendium, Do Not Delete/merge, [id number] 4 12:02:21 CMP, serum or plasma 2023 024 [facility] (Lab), [address] [place] [address], [address], 4 11:32:57 lipid panel, serum 2023 024 [facility] (Lab), [address] [place] [address], [address], 4 11:32:57 TSH, serum or plasma 2023 024 [facility] (Lab), [address] [place] [address], [address], 4 15:28:53 T4, free, serum 2023 024 [facility] (Lab), [address] [place] [address], [address], 4 15:28:53 HbA1c (hemoglobi n A1c), blood 2023 [facility] (Lab), [address] [place], [address], 4 15:28:52 vitamin D, 25-hydroxy , total, serum 2023 [facility], [address], [place], [address], 4 15:28:00 CBC w/ auto diff 2023 [facility] (Lab), [address] [place], [address], 4 15:28:53 Referral None recorded. Procedures None recorded. Surgeries None recorded. Imaging XR, hip + pelvis, bilateral - left hip pain 2021 022 [facility], [address] [place], [address], 2 14:07:02 electrocar diogram 2022 023 [email or web address] In-Office Order, Internal Use Only DO Not Attach Compendium DO Not Attach Compendium, Do Not Delete/merge, [id number] 3 09:46:23 XR, chest - cough, fever, chills, chest pain, r/o PNA 2023 024 [facility] (Imaging), [address] [place], [address], 4 13:39:20 Medication Orders sertraline 25 mg tablet 2021 022 [facility]/Pharmacy #[id number], [address] [place] [address], [address], 4 15:27:05 sertraline 25 mg tablet 2023 024 [facility]/Pharmacy #[id number], [address] [facility], [place], [address], 15:27:20 Patient TargetsNo targets recorded. Patient Instructions Encounter Date Encounter Id Patient Instructions Last Modified By Organization Details Last Modified Time 04/23/2022 [id number] call or return for worsening or concerns. [email or web address] Not available 04/23/2022 11:02:10 03/16/2023 [id number] viral respirator y infection: care instructions [email or web address] Not available 03/16/2023 12:05:08 04/27/2023 [id number] dash diet: care instructions [email or web address] Not available 04/27/2023 09:52:40 high blood pressure: care instructions [email or web address] Not available 04/27/2023 09:52:41 low sodium diet (2,000 milligram): care instructions [email or web address] Not available 04/27/2023 09:52:40 starting a weigh t loss plan: care instructions [email or web address] Not available 04/27/2023 15:30:46 To call or retur n for worsening or concerns [email or web address] Not available 04/27/2023 09:15:56 07/13/2023 [id number] 10 things to do when you have covid-19 [email or web address] Not available 07/13/2023 12:12:37 coronavirus (covid-19): care instructions [email or web address] Not available 07/13/2023 12:12:37 To call or retur n for worsening or concerns [email or web address] Not available 07/13/2023 12:13:59 05/02/2024 [id number] dash diet: care instructions [email or web address] Not available 05/02/2024 15:27:17 high blood pressure: care instructions [email or web address] Not available 05/02/2024 15:27:17 low sodium diet (2,000 milligram): care instructions [email or web address] Not available 05/02/2024 15:27:17 starting a weigh t loss plan: care instructions [email or web address] Not available 05/02/2024 15:27:16 To call or retur n for worsening or concerns [email or web address] Not available 05/02/2024 15:32:51 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 None Reported. Results Created Date Observation Date Name Description Value Unit Range Abnormal Flag Note LastModifiedBy Organization Detail LastModifiedTime 04/23/20 22 04/23/2022 COMPL ETE CBC WITH DIFF WBC 8.2 K/mm3 (4.0-1 1.0) Not Available [facility] [address] [place], [address], 04/23/2022 18:28:07 04/23/20 22 04/23/2022 COMPL ETE CBC WITH DIFF RBC 5.13 M/mm3 (4.20- 5.40) Not Available [facility] [address] [place], [address], 04/23/2022 18:28:07 04/23/20 22 04/23/2022 COMPL ETE CBC WITH DIFF HGB 13.1 gm/dL (11.7- 15.5) Not Available [facility] [address] [place], [address], 04/23/2022 18:28:07 04/23/20 22 04/23/2022 COMPL ETE CBC WITH DIFF HCT 44.2 % (35.7- 45.8) Not Available [facility] [address] [place], [address], 04/23/2022 18:28:07 04/23/20 22 04/23/2022 COMPL ETE CBC WITH DIFF MCV 86.2 fL (80.0- 100.0) Not Available [facility] [address] [place], [address], 04/23/2022 18:28:07 04/23/20 22 04/23/2022 COMPL ETE CBC WITH DIFF MCH 25.5 pg (27.0- 34.0) low Not Available [facility] [address] [place], [address], 04/23/2022 18:28:07 04/23/20 22 04/23/2022 COMPL ETE CBC WITH DIFF MCHC 29.6 g/dL (33.0- 37.0) low Not Available [facility] [address] [place], [address], 04/23/2022 18:28:07 04/23/20 22 04/23/2022 COMPL ETE CBC WITH DIFF plt 394 K/mm3 (150-4 60) Not Available [facility] [address] [place], [address], 04/23/2022 18:28:07 04/23/20 22 04/23/2022 COMPL ETE CBC WITH DIFF RDW-SD 42.2 fL (<47.0 ) Not Available [facility] [address] [place], [address], 04/23/2022 18:28:07 04/23/20 22 04/23/2022 COMPL ETE CBC WITH DIFF MPV 9.9 fL (9.4-1 2.4) Not Available [facility] [address] [place], [address], 04/23/2022 18:28:07 04/23/20 22 04/23/2022 COMPL ETE CBC WITH DIFF automated NRBC 0.0 #/100 _WBC' s Not Available [facility] [address] [place], [address], 04/23/2022 18:28:07 04/23/20 22 04/23/2022 COMPL ETE CBC WITH DIFF abs. NRBC 0.0 K/mm3 Not Available [facility] [address] [place], [address], 04/23/2022 18:28:07 04/23/20 22 04/23/2022 COMPL ETE CBC WITH DIFF neut # 3.7 K/mm3 (1.3-7 .0) Not Available [facility] [address] [place], [address], 04/23/2022 18:28:07 04/23/20 22 04/23/2022 COMPL ETE CBC WITH DIFF lymph # 2.9 K/mm3 (0.8-3 .1) Not Available [facility] [address] [place], [address], 04/23/2022 18:28:07 04/23/20 22 04/23/2022 COMPL ETE CBC WITH DIFF mono# 0.6 K/mm3 (0.4-0 .9) Not Available [facility] [address] [place], [address], 04/23/2022 18:28:07 04/23/20 22 04/23/2022 COMPL ETE CBC WITH DIFF eo # 0.8 K/mm3 (0.0-0 .4) high Not Available [facility] [address] [place], [address], 04/23/2022 18:28:07 04/23/20 22 04/23/2022 COMPL ETE CBC WITH DIFF baso # 0.2 K/mm3 (0.0-0 .1) high Not Available [facility] [address] [place], [address], 04/23/2022 18:28:07 04/23/20 22 04/23/2022 COMPL ETE CBC WITH DIFF abs. imm gran 0.0 K/mm3 Not Available [facility] [address] [place], [address], 04/23/2022 18:28:07 04/23/20 22 04/23/2022 COMPL ETE CBC WITH DIFF neut 45.3 % (44-76 ) Not Available [facility] [address] [place], [address], 04/23/2022 18:28:07 04/23/20 22 04/23/2022 COMPL ETE CBC WITH DIFF lymph 35.7 % (15-43 ) Not Available [facility] [address] [place], [address], 04/23/2022 18:28:07 04/23/20 22 04/23/2022 COMPL ETE CBC WITH DIFF monocyte 7.7 % (4.5-1 0.5) Not Available [facility] [address] [place], [address], 04/23/2022 18:28:07 04/23/20 22 04/23/2022 COMPL ETE CBC WITH DIFF eo 9.2 % (0-6) high Not Available [facility] [address] [place], [address], 04/23/2022 18:28:07 04/23/20 22 04/23/2022 COMPL ETE CBC WITH DIFF baso 1.9 % (0-2) Not Available [facility] [address] [place], [address], 04/23/2022 18:28:07 04/23/20 22 04/23/2022 COMPL ETE CBC WITH DIFF imm gran 0.2 % Not Available [facility] [address] [place], [address], 04/23/2022 18:28:07 04/23/20 22 04/23/2022 COMPR EHENS NICOLE METAB OLIC PANL glucose 111 mg/dL (70-99 ) high Not Available [facility] [address] [place], [address], 04/23/2022 20:05:39 04/23/20 22 04/23/2022 COMPR EHENS NICOLE METAB OLIC PANL BUN 13 mg/dL (6-20) Not Available [facility] [address] [place], [address], 04/23/2022 20:05:39 04/23/20 22 04/23/2022 COMPR EHENS NICOLE METAB OLIC PANL creatinine 1.3 mg/dL (0.5-1 .0) high Not Available [facility] [address] [place], [address], 04/23/2022 20:05:39 04/23/20 22 04/23/2022 COMPR EHENS NICOLE METAB OLIC PANL sodium 136 mmol/ L (133-1 45) Not Available [facility] [address] [place], [address], 04/23/2022 20:05:39 04/23/20 22 04/23/2022 COMPR EHENS NICOLE METAB OLIC PANL potassium 4.1 mmol/ L (3.6-5 .2) Not Available [facility] [address] [place], [address], 04/23/2022 20:05:39 04/23/20 22 04/23/2022 COMPR EHENS NICOLE METAB OLIC PANL chloride 101 mmol/ L (98-10 7) Not Available [facility] [address] [place], [address], 04/23/2022 20:05:39 04/23/20 22 04/23/2022 COMPR EHENS NICOLE METAB OLIC PANL bicarbonate 24 mmol/ L (22-29 ) Not Available [facility] [address] [place], [address], 04/23/2022 20:05:39 04/23/20 22 04/23/2022 COMPR EHENS NICOLE METAB OLIC PANL anion gap 11 (4-17) Not Available [facility] [address] [place], [address], 04/23/2022 20:05:39 04/23/20 22 04/23/2022 COMPR EHENS NICOLE METAB OLIC PANL albumin 4.5 gm/dL (3.4-4 .8) Not Available [facility] [address] [place], [address], 04/23/2022 20:05:39 04/23/20 22 04/23/2022 COMPR EHENS NICOLE METAB OLIC PANL calcium 9.6 mg/dL (8.6-1 0.5) Not Available [facility] [address] [place], [address], 04/23/2022 20:05:39 04/23/20 22 04/23/2022 COMPR EHENS NICOLE METAB OLIC PANL bilirubin,to kim 0.3 mg/dL (0-1.2 ) Not Available [facility] [address] [place], [address], 04/23/2022 20:05:39 04/23/20 22 04/23/2022 COMPR EHENS NICOLE METAB OLIC PANL total protein 7.1 gm/dL (6.2-8 .2) Not Available [facility] [address] [place], [address], 04/23/2022 20:05:39 04/23/20 22 04/23/2022 COMPR EHENS NICOLE METAB OLIC PANL Ag ratio 1.7 Not Available [facility] [address] [place], [address], 04/23/2022 20:05:39 04/23/20 22 04/23/2022 COMPR EHENS NICOLE METAB OLIC PANL AST 28 U/L (0-32) Not Available [facility] [address] [place], [address], 04/23/2022 20:05:39 04/23/20 22 04/23/2022 COMPR EHENS NICOLE METAB OLIC PANL alk phos 130 U/L (35-10 4) high Not Available [facility] [address] [place], [address], 04/23/2022 20:05:39 04/23/20 22 04/23/2022 COMPR EHENS NICOLE METAB OLIC PANL ALT 34 U/L (0-33) high Not Available [facility] [address] [place], [address], 04/23/2022 20:05:39 04/23/20 22 04/23/2022 COMPR EHENS NICOLE METAB OLIC PANL estimated GFR creatinine 53 mL/mi n/1.7 3_M2 Creat inine based estim ated glome rular filtr ation (eGFR ) in adult s is calcu lated using the Natio nal Kidne y Found ation recom gigi d 2020 CKD-E PI equat ion. Estim ates GFR from serum creat inine , age and sex. Not Available [facility] [address] [place], [address], 04/23/2022 20:05:39 04/23/20 22 04/23/2022 LIPID PANEL cholesterol, total 246 mg/dL (<200) high Not Available [facility] [address], [address], 04/23/2022 20:05:41 04/23/20 22 04/23/2022 LIPID PANEL triglyceride 197 mg/dL (<150) high Not Available [facility] [address] [place], [address], 04/23/2022 20:05:41 04/23/20 22 04/23/2022 LIPID PANEL HDL chol 41 mg/dL (>39) Not Available [facility] [address] [place], [address], 04/23/2022 20:05:41 04/23/20 22 04/23/2022 LIPID PANEL LDL cholesterol, calculated 166 mg/dL (0-130 ) high Not Available [facility] [address] [place], [address], 04/23/2022 20:05:41 04/23/20 22 04/23/2022 LIPID PANEL non HDL cholesterol (calc) 205 mg/dL (<160) high Not Available [facility] [address] [place], [address], 04/23/2022 20:05:41 04/23/20 22 04/23/2022 TSH WITH REFLE X TO FT4 TSH 1.76 uIU/m L (0.4-4 .2) Not Available [facility] [address] [place], [address], 04/23/2022 20:10:00 04/23/20 22 04/23/2022 HEMOG LOBIN A1C hemoglobin A1C 5.6 % (4.0-5 .6) MONIT ORING : In known diabe tic patie nts, hemog lobin A1c targe ts shoul d be discu ssed with healt h care provi niesha. DIAGN OSTIC USE: The Ameri can Diabe y[place] Assoc iatio n (ADA) and the World Healt h Organ izati on (WHO) recom mend the use of HbA1c to diagn ose diabe yumiko using a thres hold of 6.5%. Patie nts who have an HbA1c betwe en 5.7% and 6.4% are consi dered at incre ased risk for devel oping diabe yumiko in the futur e. CAUTI ON: False ly low HbA1c resul ts may be obser uday in patie nts with hemol ytic anemi a, homoz ygous forms of abnor mal hemog lobin (e.g. SS, CC, SC), pregn chantell, recen t blood loss or hemog lobin F great er than 7%. Fruct osami ne may be used as an alter anthony test in these cases . REFER ENCE: ADA: Stand ards of Medic al Care in [place] 2019, The Journ al of Clini dheeraj and Appli ed Resea rch and Educa tion Volum e 43, Suppl ement 1 Not Available [facility] [address] [place], [address], 04/23/2022 21:04:52 07/13/19 24 07/13/2023 rapid SARS CoV 2 Ag, QL IA, respi rator y speci men RAPID SARS COV 2 positi ve Not Available In-Office Order Internal Use Only DO Not Attach Compendium DO Not Attach Compendium, Do Not Delete/merge, [id number] 07/13/2023 11:48:22 07/13/19 24 07/13/2023 rapid flu (A+B) Flu A negati ve Not Available In-Office Order Internal Use Only DO Not Attach Compendium DO Not Attach Compendium, Do Not Delete/merge, [id number] 07/13/2023 11:21:58 07/13/19 24 07/13/2023 rapid flu (A+B) Flu B negati ve Not Available In-Office Order Internal Use Only DO Not Attach Compendium DO Not Attach Compendium, Do Not Delete/merge, [id number] 07/13/2023 11:21:58 04/21/2004/21/2022 elect idalmis diogr am No observ ation record ed. In-Office Order Internal Use Only DO Not Attach Compendium DO Not Attach Compendium, Do Not Delete/merge, [id number] 04/21/2022 13:39:24 04/21/20 elect idalmis diogr am No observ ation record ed. [email or web address] In-Office Order Internal Use Only DO Not Attach Compendium DO Not Attach Compendium, Do Not Delete/merge, [id number] 04/21/2022 13:44:28 04/23/2004/15/2021 MAMMO , scree orestes, digit al, bilat eral No observ ation record ed. [email or web address] Not Available 04/23 13:49:13 04/23/2004/23/2022 XR, hip + pelvi s, bilat eral Hip Bilat 2 Views W/ AP Pelvis Reason : pain in left hip TECHNI QUE: AP pelvis . AP and frog latera l of each hip. COMPAR KEAGAN: None. FINDIN GS: There is no fractu re or focal lesion . The sacroi liac joints are normal . Hip joints are normal bilate rally. No soft tissue calcif icatio ns. IMPRES MARGARET: 1. No bony abnorm ality. 2. No joint abnorm ality. WSN: [id number] Orderi ng Physic yves: Ian Miranda Dictat ed By: Demarcus Everett MD Dictat ed Date/T sha: 2:03 pm Review ed By: Demarcus Everett MD Signed By: Demarcus Everett MD Signed Date/T sha: 2:03 pm Transc ribed By: HEATHER Transc ribed Date/T sha: 2:03 pm Patien t Class: Outpat ient [facility] (Outpt Imaging) [address] [place], [address], 04/23/2022 14:30:16 07/14/19 23 07/14/2022 MAMMO , scree orestes, digit al, bilat eral PROCED URE: MM Digita l Mammo Screen ing INDICA TION: Screen ing for breast cancer . No known palpab le abnorm alitie s. COMPAR KEAGAN: Multip le priors dating back to 015 TECHNI QUE: Full-f ield digita l CC and MLO 3D tomosy nthesi s images of both breast s were acquir ed. Comput er-aid ed detect ion (CAD) was utiliz ed in the interp retati on of this study. DENSIT Y: The breast tissue contai ns scatte red areas of fibrog landul ar densit y. FINDIN GS: There is an oval isoden se asymme try best seen on the LEFT CC view latera lly at carriage setter ior third depth 9 cm from the nipple . There is a possib le corres pondin g findin g seen on the MLO view slight ly superi anika. Furthe r evalua tion with spot compre ssion CC, spot compre ssion MLO and full-f ield 90 degree s mediol ateral tomosy nthesi s is recomm ended. Ultras ound may be necess brinaa. In additi on, there are questi onable faint calcif icatio ns seen on the LEFT CC view within the line of the nipple at the fat fibrog landul ar juncti on. Furthe r evalua tion with spot magnif icatio n CC and spot magnif icatio n mediol ateral views is recomm ended. Of note these calcif icatio ns are not seen well on the MLO view but are likely locate d within , or superi or to, the nipple line. No suspic ious findin gs are seen in the right breast . IMPRES MARGARET: Additi onal imagin g recomm ended. We will recall the bert walker. RECOMM ENDATI ON: Diagno stic 3D tomosy nthesi s of the left breast with schedu led ultras ound BI-RAD S: 0 Incomp lete - Need Additi onal Imagin g Evalua tion. Lay letter mailed to bert walker WSN: [id number] Orderi ng Physic yves: Laura LICONA, Ian Richard Dictat ed By: Leo Villaseñor MD Dictat ed Date/T sha: 4:20 pm Review ed By: Leo Villaseñor MD Signed By: Leo Villaseñor MD Signed Date/T sha: 4:20 pm Transc ribed By: HEATHER Transc riptio n Date/T sha: 4:15 pm Birads : Patien t Class: Outpat ient [email or web address] [facility] (Outpt Imaging) [address], [place], [address], 07/14/2022 16:24:55 07/17/1907/14/2022 mm digit al mammo unila t left PROCED URE: MM Digita l Mammo Unilat Left, US Breast Left Limite d INDICA TION: Call back from screen ing COMPAR KEAGAN: Multip le prior studie s dating back to 015 TECHNI QUE: Digita l diagno stic mammog bettye consis ting of spot magnif icatio n CC and mediol ateral views, full-f ield 90 degree s mediol ateral tomosy nthesi s, and spot compre ssion MLO and CC tomosy nthesi s. Comput er-aid ed detect ion (CAD) was utiliz ed in the interp retati on of this study. In additi on, target ed high-r esolut ion ultras ound of FINDIN GS: Magnif icatio n views demons trate a few puncta te calcif icatio ns withou t suspic ious groupi ng identi fied. These are consid ered benign . Spot compre ssion CC view demons trates signif icantl y decrea sed conspi cuity of the single view oval asymme try seen latera lly. On spot compre ssion imagin g with both a small paddle and large paddle , the parenc hymal patter n appear s stable to multip le prior studie s. No corres pondin g findin g is seen on the mediol ateral view and there are no suspic ious findin gs seen. Howeve r as a precau tion, sonogr aphic evalua tion of the latera l left breast was perfor med. Sonogr aphic evalua tion of the left breast was perfor med latera lly from 2:00-6 :00, center ed 8-9 cm from the nipple in the area of mammog raphic findin g. There are no solid masses , areas of belem ectura l distor tion or reprod ucible shadow ing. A few tiny cysts are identi fied. In the absenc e of sonogr aphic correl ate for the probab ly benign single view mammog raphic asymme try, I recomm end follow -up left breast tomosy nthesi s in 6 months . Findin gs and recomm endati ons were discus sed with the bert walker. IMPRES MARGARET: Probab ly benign single view asymme try seen on the LEFT CC view latera lly. Recomm end follow -up with left breast tomosy nthesi s in 6 months . RECOMM ENDATI ON: Follow -up diagno stic 3D tomosy nthesi s of the left breast in 6 months BI-RAD S: 3 (Proba frantz Benign ) Lay letter mailed to bert aaron WSN: [id number] Orderi ng Physic yves: Ian Miranda Dictat ed By: Leo Villaseñor MD Dictat ed Date/T sha: 2:09 pm Review ed By: Leo Villaseñor MD Signed By: Leo Villaseñor MD Signed Date/T sha: 2:09 pm Transc ribed By: HEATHER Transc riptio n Date/T sha: 11:21 am Birads : Bert walker Class: Outpat ient [facility] (Outpt Imaging) [address] [place], [address], 07/17/2022 14:24:46 08/10/19 23 07/17/2022 US, ines walker, limit ed PROCED URE: MM Digita l Mammo Unilat Left, US Breast Left Limite d INDICA TION: Call back from screen ing COMPAR KEAGAN: Multip le prior studie s dating back to 015 TECHNI QUE: Digita l diagno stic mammog bettye consis ting of spot magnif icatio n CC and mediol ateral views, full-f ield 90 degree s mediol ateral tomosy nthesi s, and spot compre ssion MLO and CC tomosy nthesi s. Comput er-aid ed detect ion (CAD) was utiliz ed in the interp retati on of this study. In additi on, target ed high-r esolut ion ultras ound of FINDIN GS: Magnif icatio n views demons trate a few puncta te calcif icatio ns withou t suspic ious groupi ng identi fied. These are consid ered benign . Spot compre ssion CC view demons trates signif icantl y decrea sed conspi cuity of the single view oval asymme try seen latera lly. On spot compre ssion imagin g with both a small paddle and large paddle , the parenc hymal patter n appear s stable to multip le prior studie s. No corres pondin g findin g is seen on the mediol ateral view and there are no suspic ious findin gs seen. Howeve r as a precau tion, sonogr aphic evalua tion of the latera l left breast was perfor med. Sonogr aphic evalua tion of the left breast was perfor med latera lly from 2:00-6 :00, center ed 8-9 cm from the nipple in the area of mammog raphic findin g. There are no solid masses , areas of belem ectura l distor tion or reprod ucible shadow ing. A few tiny cysts are identi fied. In the absenc e of sonogr aphic correl ate for the probab ly benign single view mammog raphic asymme try, I recomm end follow -up left breast tomosy nthesi s in 6 months . Findin gs and recomm endati ons were discus sed with the patien t. IMPRES MARGARET: Probab ly benign single view asymme try seen on the LEFT CC view latera lly. Recomm end follow -up with left breast tomosy nthesi s in 6 months . RECOMM ENDATI ON: Follow -up diagno stic 3D tomosy nthesi s of the left breast in 6 months BI-RAD S: 3 (Proba frantz Benign ) Lay letter mailed to bert walker Dictloretta ed By: Dictat ed Date/T sha: Review ed By: Leo Villaseñor MD Signed By: Leo Villaseñor MD Signed Date/T sha: 8:45 am Transc ribed By: Transc ribed Date/T sha: 10:37 am Bert walker Class: Outpat ient [facility] (Outpt Imaging) [address] [place] [address], [address], 08/10/2022 12:49:24 01/16/20 23 01/15/2023 mm digit al mammo unila t left PROCED URE: MM Digita l Mammo Unilat Left INDICA TION: Six-mo [facility] follow -up for single view asymme try seen in the left breast on screen ing mammog bettye COMPAR KEAGAN: 023 and prior TECHNI QUE: Digita l diagno stic mammog bettye consis ting of full field digita l mammog raphic views of the left breast in CC and MLO projec tions were obtain ed. FINDIN GS: The previo usly noted 6 mm oval single view asymme try in the latera l carriage setter ior left breast is no longer seen on the [facility] t study. No new suspic ious mass, suspic ious microc alcifi cation s or eblem ectura l distor tion seen in the left breast to suspec t malign chantell. IMPRES MARGARET: No persis tent oval asymme try in the latera l carriage setter ior left breast . RECOMM ENDATI ON: Routin e mammog raphic screen ing BI-RAD S: 1 (Negat nicole) Lay letter mailed to bert walker WSN: [id number] Orderi ng Physic yves: Laura LICONA, Ian Richard Dictat ed By: Chyna WALLIS, Carli jordan Dictat ed Date/T sha: 4:39 pm Review ed By: Carli Clemente MD Signed By: Carli Clemente MD Signed Date/T sha: 4:39 pm Transc ribed By: HEATHER Transc riptio n Date/T sha: 4:38 pm Birads : Patijeanette t [facility] [address], [place], [address], 01/15/2023 17:17:32 04/27/20 23 04/27/2023 elect rocar diogr am No observ ation record ed. jabet In-Office Order Internal Use Only DO Not Attach Compendium DO Not Attach Compendium, Do Not Delete/merge, [id number] 04/27/2023 09:49:11 04/27/20 elect rocar diogr am No observ ation record ed. [email or web address] In-Office Order Internal Use Only DO Not Attach Compendium DO Not Attach Compendium, Do Not Delete/merge, [id number] 04/27/2023 09:39:42 07/13/19 24 07/13/2023 XR, chest No observ ation record ed. [facility] (Imaging) [address] [place], [address], 07/20/2023 08:53:36 08/24/19 24 08/24/2023 US, doppl er, venou s No observ ation record ed. [email or web address] [facility] (Medical Records) [address] [place], [address], 08/25/2023 08:42:01 08/30/19 24 08/30/2023 MAMMO , scree orestes, digit al, bilat eral PROCED URE: MM Digita l Mammo Screen ing INDICA TION: Screen ing for breast cancer . No known palpab le abnorm alitie s. COMPAR KEAGAN: Multip le prior studie s dating back to 019. TECHNI QUE: Full-f ield digita l CC and MLO 3D tomosy nthesi s images of both breast s were acquir ed. Comput er-aid ed detect ion (CAD) was utiliz ed in the interp retati on of this study. DENSIT Y: The breast tissue contai ns scatte red areas of fibrog landul ar densit y. FINDIN GS: No suspic ious masses , suspic ious microc alcifi cation s, or areas of belem ectura l distor tion are seen in either breast to sugges t malign chantell. IMPRES MARGARET: No mammog raphic eviden ce of malign chantell. RECOMM ENDATI ON: Annual mammog raphic screen ing BI-RAD S: 1 (Negat nicole) Lay letter mailed to bert walker WSN: [id number] Orderi ng Physic yves: Ian Miranda Dictat ed By: Leo Villaseñor MD Dictat ed Date/T sha: 4:38 pm Review ed By: Leo Villaseñor MD Signed By: Leo Villaseñor MD Signed Date/T sha: 4:38 pm Transc ribed By: CSB Transc riptio n Date/T sha: 1:13 pm Birads : Bert walker Class: Outpat ient [email or web address] [facility] (Outpt Imaging) [address], [place], [address], 08/31/2023 10:24:05 11/03/19 24 11/02/2023 CT, abdom en + pelvi s, w/ contr ast No observ ation record ed. [facility] [address] [facility], [place], [address], 11/03/2023 13:36:14 12/17/19 24 12/17/2023 XR, chest No observ ation record ed. [facility] (Medical Records) [address] [place], [address], 12/17/2023 14:14:49 12/17/19 24 12/17/2023 CT, abdom en + pelvi s, w/o contr ast No observ ation record ed. [email or web address] [facility] (Medical Records) [address] [facility], [place], [address], 12/20/2023 08:52:21 Result Notes None recorded. Problems Name Problem SNOMED Code Status Onset Date Resolution Date Notes Provider Name and Address Organization Details Recorded Time Acute pharyngi tis 624249249 Completed 201101/16/2014 RECORDED 05/13/20 12 3:41PM BY ALLA BAUM MA, ANNOTATI ON/ADDEN DUM Peyman Healy MD [address], [place], [address], [facility] 7 10:24:09 Adult health examinat ion Completed 201303/18/2016 Diana martines [place] null, [facility] 6 09:23:31 Anxiety state [id number] Completed 201312/30/2016 Peyman Healy MD [address], [place], [address], [facility] 7 10:23:44 Backache [id number] Completed 201301/16/2014 IMPRESSI ON: > 1 WEEK OF WORSENIN G BACK PAIN, UNABLE TO STAND UPRIGHT, LEGS GIVING OUT. PAIN NOW RADIATIN G INTO BUTTOCKS AND ANTERIOR THIGHS. MRI REVEALED SCHMORL' S NODES, OTHERWIS E NEG. TO PSS FOR FURTHER EVAL.; RECORDED 10/05/19 14 2:28PM BY DIANA NUNEZ MA, MARY CARMEN ON/ADDEN DUM Susan Jiang PA-C [address], [place], [address], [facility] 6 15:45:51 Bronchit is [id number] Completed 201201/16/2014 RECORDED 07/28/19 13 1:45AM BY ALLA BAUM MA, ANNOTATI ON/ADDEN DUM Susan Jiang PA-C [address] [facility] [address], [place], [address], [facility] 6 15:45:51 Acute bronchit is [id number] Completed 201301/16/2014 IMPRESSI ON: LIKELY MOSTLY VIRAL SXS, HOWEVER DUE TO SMOKING STATUS AND RISK OF BACTERIA L BRONCHIT IS OR PNA TO TX WITH ABX. REST, FLUIDS, COUGH MED AT NIGHT PRN. CALL FOR WORSENIN G/PRN.; RECORDED 10/05/19 14 2:26PM BY DIANA NUNEZ MA, MARY CARMEN ON/ADDEN [facility] [address] [facility] [address], [place], [address], [facility] 6 15:45:51 Screenin g for malignan t neoplasm of cervix Completed 201101/16/2014 RECORDED 05/13/20 12 3:41PM BY ALLA BAUM MA, [facility] [address], [place], [address], [facility] 6 15:45:51 Cough [id number] Completed 201301/16/2014 IMPRESSI ON: POSSIBLE PNEUMONI A WITH THE FOCAL RALES. IF SHE DOES NOT IMPROVE WITH THE ABX SHE WILL GET A CXR.; RECORDED 10/05/19 14 2:26PM BY DIANA NUNEZ MA, ANNOTATI ON/ADDEN [facility] Brady Sanchez [facility] [address] [facility] [address], [place], [address], [facility] 4 11:48:33 Tobacco dependen ce syndrome [id number] Active 2013 Diana martines [place] [facility] 6 09:24:07 Tobacco dependen ce syndrome 73443014 Completed 201301/16/2014 RECORDED 10/05/19 14 2:27PM BY DIANA NUNEZ MA, ANNOTATI ON/ADDEN DUM Diana martines MA null, [facility] 6 09:24:07 Diarrhea [id number] Completed 201301/16/2014 RECORDED 10/05/19 14 2:25PM BY DIANA NUNEZ MA, ANNOTATI ON/ADDEN DUM Susan Apolinar GRISSOM [address] [address], [place], [address], [facility] 6 15:45:51 Dysuria [id number] Completed 201312/30/2016 RECORDED 10/05/19 14 2:30PM BY DIANA NUNEZ MA, OFFICE VISIT Peyman Healy MD [address] [facility] [address], [place], [address], [facility] 7 10:24:17 Elevated blood-pr essure reading without diagnosi s of hyperten margaret [id number] Active 2013 Diana martines [place] null, [facility] 7 11:51:58 Epigastr ic pain [id number] Completed 201101/16/2014 IMPRESSI ON: PROBABLE GASTRITI S D/T RECENT NSAIDS AND PREDNISO NE TAPER, NO LONGER TAKING EITHER; RECORDED 05/13/20 12 3:41PM BY ALLA BAUM MA, ANNOTCHARLENE ON/ADDEN DUM Susananita Jiang PA-C [address] [address], [place], [address], [facility] 6 15:45:51 Follow-u p encounte r Completed 201201/16/2014 RECORDED 08/31/19 13 1:39PM BY RHONDA PETERSEN MA, ANNOTCHARLENE ON/ADDEN DUM Susan Apolinar GRISSOM [address] [facility] [address], [place], [address], [facility] 6 15:45:51 Malaise and fatigue [id number] Completed 201101/16/2014 IMPRESSI ON: PER PT REPORT WITH SIG INCREASE D STRESS LEVELS RECENTLY . SEES THERAPIS T WEEKLY, REC INCREASI NG ZOLOFT DOSE. CHANGED FROM 25- 50 MG.; RECORDED 05/13/20 12 3:41PM BY ALLA BAUM MA, MARY CARMEN ON/ADDEN DUM Susan Jiang PA-C [address], [place], [address], [facility] 6 15:45:51 Gastroes ophageal reflux disease [id number] Active 2013 Diana martines [place] [facility], [facility] 6 09:23:24 Headache 77069945 Completed 201301/16/2014 RECORDED 10/05/19 14 2:28PM BY DIANA NUNEZ MA, ISAIAHATI ON/ADDEN DUM Susan Jiang PA-C [address], [place], [address], [facility] 6 15:45:51 Glucose level outside referenc e range 130338644 Completed 201312/30/2016 Peyman Healy MD [address], [place], [address], [facility] 7 10:23:38 Hyperlip idemia 71151849 Completed 201312/30/2016 BRODY Roberts [address], [place], [address], [facility] 2 14:05:28 Low back pain 286770970 Completed 201101/16/2014 RECORDED 05/13/20 12 3:41PM BY ALLA BAUM MA, MARY CARMEN ON/ADDEN DUM BRODY Roberts [address], [place], [address], [facility] 2 10:36:13 Acute lymphade nitis 78086592 Completed 201301/16/2014 IMPRESSI ON: PT VERY ANXIOUS [...] ENLARGIN G.; RECORDED 10/05/19 14 2:26PM BY DIANA NUNEZ MA, MARY CARMEN ON/ADDEN DUM Susan Jiang PA-C [address], [place], [address], [facility] 6 15:45:51 Administ ration of bacteria l and viral vaccine Completed 201001/16/2014 RECORDED 09/20/19 11 1:19PM BY BABITA ANDERSON PA-C, OFFICE VISIT Susan Jiang PA-C [address], [place], [address], [facility] 6 15:45:51 Psoriasi s [id number] Active 2013 Diana martines [place] null, [facility] 6 09:24:04 Disorder of rotator cuff 504332132 Completed 201201/16/2014 IMPRESSI ON: SUSPECT SUPRASPI NATUS TENDON TEAR. 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 FURTHER F/U THROUGH [employer]PL[facility]EE [facility]. SHE WILL TAKE NSAID PRN AND ICE. MAY RETURN TO WORK.; RECORDED 08/31/19 13 1:39PM BY RHONDA PETERSEN MA, MARY CARMEN ON/ADDEN DUM Susan Jiang PA-C [address], [place], [address], [facility] 6 15:45:51 Adult health examinat ion Completed 201101/16/2014 RECORDED 05/13/20 12 3:41PM BY ALLA BAUM MA, ANNOTATI ON/ADDEN DUM GABRIELA Cob[place], [facility] 6 09:23:31 Shoulder joint pain [id number] Completed 201101/16/2014 STORY: R SIDED, X PAST TWO WEEKS WITHOUT HX OF TRAUMA OR INJURY RECENT OR PAST. WITH ASSOCIAT ED WEAKNESS , MINIMAL RESP TO NSAID. WILL CONTACT [facility] TO SEE IF THEY ARE ABLE TO SEE HER SOON, IF NOT WILL CHECK XRAYS WHILE AWAITING APPT.; RECORDED 05/13/20 12 3:41PM BY ALLA BAUM MA, ANNOTATI ON/LUIS RHODESC [address], [place], [address], [facility] 6 15:45:51 Disorder of upper respirat ory system 152123986 Completed 201101/16/2014 RECORDED 05/13/20 12 3:41PM BY ALLA BAUM MA, ANNOTATI ON/LUIS RHODESC [address], [place], [address], [facility] 6 15:45:51 Disorder of bursa of shoulder region 28293902 Active 2013 GABRIELA Coburn, [facility] 6 09:24:00 Temporom andibula r joint disorder 84665538 Active 2013 GABRIELA Coburn, [facility] 7 11:51:54 Acute upper respirat ory infectio n 84688405 Completed 201101/16/2014 IMPRESSI ON: 5 DAYS, NO FEVERS AND NO FOCAL SIGNS ON EXAM. LIKELY VIRAL, ADVISED RE REST, FLUIDS AND OTHER SX SUPPORT. CALL FOR WORSENIN G/PRN.; RECORDED 05/13/20 12 3:41PM BY ALLA BAUM MA, ANNOTATI ON/LUIS Jiang [facility] [address], [place], [address], [facility] 6 15:45:51 Vernal conjunct ivitis 463824089 Completed 201101/16/2014 RECORDED 05/13/20 12 3:41PM BY ALLA BAUM MA, ANNOTATI ON/ADD Susan [facility] [address], [place], [address], [facility] 6 15:45:51 Candidal vulvovag initis 63161037 Completed 201301/16/2014 IMPRESSI ON: TENDS TO GET YEAST INFECTIO NS WITH ABX; RECORDED 10/05/19 14 2:26PM BY DIANA NUNEZ MA, ANNOTATI ON/ADD DUM Susan [facility] [address], [place], [address], [facility] 6 15:45:51 Acute pharyngi tis 453192499 Completed 201102/08/2014 RECORDED 05/13/20 12 3:41PM BY ALLA BAUM MA, ANNOTATI ON/ Peyman Healy MD [address], [place], [address], [facility] 7 10:24:09 Backache [id number] Completed 201302/08/2014 IMPRESSI ON: > 1 WEEK OF WORSENIN G BACK PAIN, UNABLE TO STAND UPRIGHT, LEGS GIVING OUT. PAIN NOW RADIATIN G INTO BUTTOCKS AND ANTERIOR THIGHS. MRI REVEALED SCHMORL' S NODES, OTHERWIS E NEG. TO PSS FOR FURTHER EVAL.; RECORDED 10/05/19 14 2:28PM BY DIANA NUNEZ MA, ANNOTATI ON/ADDEN DUM Susan LICONAHilary [address], [place], [address], [facility] 6 15:45:51 Bronchit is [id number] Completed 201202/08/2014 RECORDED 07/28/19 13 1:45AM BY ALLA BAUM MA, MARY CARMEN ON/Gideros [facility] [address], [place], [address], [facility] 6 15:45:51 Acute bronchit is [id number] Completed 201302/08/2014 IMPRESSI ON: LIKELY MOSTLY VIRAL SXS, HOWEVER DUE TO SMOKING STATUS AND RISK OF BACTERIA L BRONCHIT IS OR PNA TO TX WITH ABX. REST, FLUIDS, COUGH MED AT NIGHT PRN. CALL FOR WORSENIN G/PRN.; RECORDED 10/05/19 14 2:26PM BY DIANA NUNEZ MA, MARY CARMEN ON/[employer] Susan [facility] [address], [place], [address], [facility] 6 15:45:51 Screenin g for malignan t neoplasm of cervix Completed 201102/08/2014 RECORDED 05/13/20 12 3:41PM BY ALLA BAUM MA, MARY CARMEN ON/[employer] [facility] [address], [place], [address], [facility] 6 15:45:51 Cough [id number] Completed 201302/08/2014 IMPRESSI ON: PRODUCTI VE COUGH X 10D, + TOBACCO, WILL TX, ADVISE TO STOP SMOKING, RTC IF PERSISTE NT OR WORSENIN G SYMPTOMS .; RECORDED 10/05/19 14 2:26PM BY DIANA NUNEZ MA, MARY CARMEN ON/BRODY Howard [address], [place], [address], [facility] 4 11:48:33 Diarrhea 46174135 Completed 201302/08/2014 RECORDED 10/05/19 14 2:25PM BY DIANA NUNEZ MA, MARY CARMEN ON/ADDEN DUM Susan Apolinar PA-C [address], [place], [address], [facility] 6 15:45:51 Epigastr ic pain 54331049 Completed 201102/08/2014 IMPRESSI ON: PROBABLE GASTRITI S D/T RECENT NSAIDS AND PREDNISO NE TAPER, NO LONGER TAKING EITHER; RECORDED 05/13/20 12 3:41PM BY ALLA BAUM MA, MARY CARMEN ON/ADDEN DUM Susan Apolinar PA-C [address], [place], [address], [facility] 6 15:45:51 Follow-u p encounte r Completed 201202/08/2014 RECORDED 08/31/19 13 1:39PM BY RHONDA PETERSEN MA, MARY CARMEN ON/ADDEN DUM Susananita LICONA-C [address], [place], [address], [facility] 6 15:45:51 Malaise and fatigue [id number] Completed 201102/08/2014 IMPRESSI ON: PER PT REPORT WITH SIG INCREASE D STRESS LEVELS RECENTLY . SEES THERAPIS T WEEKLY, REC INCREASI NG ZOLOFT DOSE. CHANGED FROM 25- 50 MG.; RECORDED 05/13/20 12 3:41PM BY ALLA BAUM MA, MARY CARMEN ON/ADDEN DUM Susan Apolinar LICONA-C [address], [place], [address], [facility] 6 15:45:51 Headache [id number] Completed 201302/08/2014 RECORDED 10/05/19 14 2:28PM BY DIANA NUNEZ MA, ISAIAHATI ON/ADDEN DUM Susan Apolinar PA-C [address] [address], [place], [address], [facility] 6 15:45:51 Low back pain 951090555 Completed 201102/08/2014 RECORDED 05/13/20 12 3:41PM BY ALLA BAUM MA, MARY CARMEN ON/ADDEN DUM BRODY Roberts [address] [facility] [address], [place], [address], [facility] 2 10:36:13 Acute lymphade nitis 52296009 Completed 201302/08/2014 IMPRESSI ON: PT VERY ANXIOUS [...] ENLARGIN G.; RECORDED 10/05/19 14 2:26PM BY DIANA NUNEZ MA, MARY CARMEN ON/ADDEN DUM Susan Jiang PA-C [address], [place], [address], [facility] 6 15:45:51 Administ ration of bacteria l and viral vaccine Completed 201002/08/2014 RECORDED 09/20/19 11 1:19PM BY BABITA ANDERSON PA-C, OFFICE VISIT Susan Jiang PA-C [address], [place], [address], [facility] 6 15:45:51 Disorder of rotator cuff 525237094 Completed 201202/08/2014 IMPRESSI ON: SUSPECT SUPRASPI NATUS TENDON TEAR. 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 FURTHER F/U THROUGH [employer]/[facility]. SHE WILL TAKE NSAID PRN AND ICE. MAY RETURN TO WORK.; RECORDED 08/31/19 13 1:39PM BY RHONDA PETERSEN MA, MARY CARMEN ON/ADDEN DUM Susan Jiang PA-C [address], [place], [address], [facility] 6 15:45:51 Shoulder joint pain 578193846 Completed 201102/08/2014 STORY: R SIDED, X PAST TWO WEEKS WITHOUT HX OF TRAUMA OR INJURY RECENT OR PAST. WITH ASSOCIAT ED WEAKNESS , MINIMAL RESP TO NSAID. WILL CONTACT [facility] TO SEE IF THEY ARE ABLE TO SEE HER SOON, IF NOT WILL CHECK XRAYS WHILE AWAITING APPT.; RECORDED 05/13/20 12 3:41PM BY ALLA BAUM MA, MARY CARMEN ON/ADDEN DUM Susan LICONA-C [address] [address], [place], [address], [facility] 6 15:45:51 Disorder of upper respirat ory system 374874838 Completed 201102/08/2014 RECORDED 05/13/20 12 3:41PM BY ALLA BAUM MA, MARY CARMEN ON/ADDEN DUM Susan LICONAGleeMasterC [address] [address], [place], [address], [facility] 6 15:45:51 Acute upper respirat ory infectio n 84580715 Completed 201102/08/2014 IMPRESSI ON: 5 DAYS, NO FEVERS AND NO FOCAL SIGNS ON EXAM. LIKELY VIRAL, ADVISED RE REST, FLUIDS AND OTHER SX SUPPORT. CALL FOR WORSENIN G/PRN.; RECORDED 05/13/20 12 3:41PM BY ALLA BAUM MA, ANNOTATI ON/ADDEN DUM Susan RHODESC [address], [place], [address], [facility] 6 15:45:51 Vernal conjunct ivitis 004111121 Completed 201102/08/2014 RECORDED 05/13/20 12 3:41PM BY ALLA BAUM MA, MARY CARMEN ON/ADDEN DUM Susan LICONA-C [address], [place], [address], [facility] 6 15:45:51 Candidal vulvovag initis 36904226 Completed 201302/08/2014 IMPRESSI ON: TENDS TO GET YEAST INFECTIO NS WITH ABX; RECORDED 10/05/19 14 2:26PM BY DIANA NUNEZ MA, MARY CARMEN ON/LUIS Jiang PA-C [address], [place], [address], [facility] 6 15:45:51 Acute pharyngi tis 060309521 Completed 201102/09/2014 RECORDED 05/13/20 12 3:41PM BY ALLA BAUM MA, MARY CARMEN ON/ADDEN GEORGE Healy MD [address], [place], [address], [facility] 7 10:24:09 Backache [id number] Completed 201302/09/2014 IMPRESSI ON: > 1 WEEK OF WORSENIN G BACK PAIN, UNABLE TO STAND UPRIGHT, LEGS GIVING OUT. PAIN NOW RADIATIN G INTO BUTTOCKS AND ANTERIOR THIGHS. MRI REVEALED SCHMORL' S NODES, OTHERWIS E NEG. TO PSS FOR FURTHER EVAL.; RECORDED 10/05/19 14 2:28PM BY DIANA NUNEZ MA, MARY CARMEN ON/ADDJEANETTE Jiang PA-C [address], [place], [address], [facility] 6 15:45:51 Bronchit is [id number] Completed 201202/09/2014 RECORDED 07/28/19 13 1:45AM BY ALLA BAUM MA, MARY CARMEN ON/LUIS RHODESC [address], [place], [address], [facility] 6 15:45:51 Acute bronchit is [id number] Completed 201302/09/2014 IMPRESSI ON: LIKELY MOSTLY VIRAL SXS, HOWEVER DUE TO SMOKING STATUS AND RISK OF BACTERIA L BRONCHIT IS OR PNA TO TX WITH ABX. REST, FLUIDS, COUGH MED AT NIGHT PRN. CALL FOR WORSENIN G/PRN.; RECORDED 10/05/19 14 2:26PM BY DIANA NUNEZ MA, MARY CARMEN ON/ADDEN GEORGE LICONA-C [address], [place], [address], [facility] 6 15:45:51 Screenin g for malignan t neoplasm of cervix Completed 201102/09/2014 RECORDED 05/13/20 12 3:41PM BY ALLA BAUM MA, MARY CARMEN ON/ADDEN GEORGE LICONA-C [address], [place], [address], [facility] 6 15:45:51 Cough [id number] Completed 201302/09/2014 IMPRESSI ON: PRODUCTI VE COUGH X 10D, + TOBACCO, WILL TX, ADVISE TO STOP SMOKING, RTC IF PERSISTE NT OR WORSENIN G SYMPTOMS .; RECORDED 10/05/19 14 2:26PM BY DIANA NUNEZ MA, MARY CARMEN ON/ADDEN BRODY Ferro [address] [facility] [address], [place], [address], [facility] 4 11:48:33 Diarrhea 28409789 Completed 201302/09/2014 RECORDED 10/05/19 14 2:25PM BY DIANA NUNEZ MA, MARY CARMEN ON/LUIS LICONAC [address] [address], [place], [address], [facility] 6 15:45:51 Epigastr ic pain 30422910 Completed 201102/09/2014 IMPRESSI ON: PROBABLE GASTRITI S D/T RECENT NSAIDS AND PREDNISO NE TAPER, NO LONGER TAKING EITHER; RECORDED 05/13/20 12 3:41PM BY ALLA BAUM MA, ISAIAHATI ON/ADDEN DUM Susan Jiang PA-C [address], [place], [address], [facility] 6 15:45:51 Follow-u p encounte r Completed 201202/09/2014 RECORDED 08/31/19 13 1:39PM BY RHONDA PETERSEN MA, ISAIAHATI ON/ADDEN DUM Susan Apolinar PA-C [address], [place], [address], [facility] 6 15:45:51 Malaise and fatigue 765590053 Completed 201102/09/2014 IMPRESSI ON: PER PT REPORT WITH SIG INCREASE D STRESS LEVELS RECENTLY . SEES THERAPIS T WEEKLY, REC INCREASI NG ZOLOFT DOSE. CHANGED FROM 25- 50 MG.; RECORDED 05/13/20 12 3:41PM BY ALLA BAUM MA, MARY CARMEN ON/ADDEN DUM Susan Apolinar PA-C [address] [facility] [address], [place], [address], [facility] 6 15:45:51 Headache [id number] Completed 201302/09/2014 RECORDED 10/05/19 14 2:28PM BY DIANA NUNEZ MA, ISAIAHATI ON/ADDEN DUM Susan Apolinar PA-C [address] [facility] [address], [place], [address], [facility] 6 15:45:51 Low back pain 106812533 Completed 201102/09/2014 RECORDED 05/13/20 12 3:41PM BY ALLA BAUM MA, ANNOTATI ON/ADDEN DUM BRODY Roberts [address] [facility] [address], [place], [address], [facility] 03/11/202 2 10:36:13 Acute lymphade nitis 22141515 Completed 201302/09/2014 IMPRESSI ON: PT VERY ANXIOUS [...] ENLARGIN G.; RECORDED 10/05/19 14 2:26PM BY DIANA NUNEZ MA, MARY CARMEN ON/ADDEN DUM Susan Jiang PA-C [address], [place], [address], [facility] 6 15:45:51 Administ ration of bacteria l and viral vaccine Completed 201002/09/2014 RECORDED 09/20/19 11 1:19PM BY BABITA ANDERSON PA-C, OFFICE VISIT Susan Jiang PA-C [address], [place], [address], [facility] 6 15:45:51 Disorder of rotator cuff 949486751 Completed 201202/09/2014 IMPRESSI ON: SUSPECT SUPRASPI NATUS TENDON TEAR. 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 FURTHER F/U THROUGH EMPLOYEE [facility]/[facility]. SHE WILL TAKE NSAID PRN AND ICE. MAY RETURN TO WORK.; RECORDED 08/31/19 13 1:39PM BY RHONDA PETERSEN MA, MARY CARMEN ON/ADDEN DUM Susan Jiang PA-C [address], [place], [address], [facility] 6 15:45:51 Shoulder joint pain 261803248 Completed 201102/09/2014 STORY: R SIDED, X PAST TWO WEEKS WITHOUT HX OF TRAUMA OR INJURY RECENT OR PAST. WITH ASSOCIAT ED WEAKNESS , MINIMAL RESP TO NSAID. WILL CONTACT [facility] TO SEE IF THEY ARE ABLE TO SEE HER SOON, IF NOT WILL CHECK XRAYS WHILE AWAITING APPT.; RECORDED 05/13/20 12 3:41PM BY ALLA BAUM MA, ISAIAHATI ON/ADDEN DUM Susan Jiang PA-C [address], [place], [address], [facility] 6 15:45:51 Disorder of upper respirat ory system 171450862 Completed 201102/09/2014 RECORDED 05/13/20 12 3:41PM BY ALLA BAUM MA, MARY CARMEN ON/ADDEN DUM Susan Jiang NE-C [address], [place], [address], [facility] 6 15:45:51 Acute upper respirat ory infectio n 32578546 Completed 201102/09/2014 IMPRESSI ON: 5 DAYS, NO FEVERS AND NO FOCAL SIGNS ON EXAM. LIKELY VIRAL, ADVISED RE REST, FLUIDS AND OTHER SX SUPPORT. CALL FOR WORSENIN G/PRN.; RECORDED 05/13/20 12 3:41PM BY ALLA BAUM MA, MARY CARMEN ON/ADDEN DUM Susan Jiang NE-C [address] [facility] [address], [place], [address], [facility] 6 15:45:51 Vernal conjunct ivitis 775274047 Completed 201102/09/2014 RECORDED 05/13/20 12 3:41PM BY ALLA BAUM MA, MARY CARMEN ON/ADDEN DUM Susanyimi Jiang NE-C [address] [facility] [address], [place], [address], [facility] 6 15:45:51 Candidal vulvovag initis 65405813 Completed 201302/09/2014 IMPRESSI ON: TENDS TO GET YEAST INFECTIO NS WITH ABX; RECORDED 10/05/19 14 2:26PM BY DIANA NUNEZ MA, ANNOTCHARLENE ON/ADDEN DUM Susan Apolinar LICONA-C [address], [place], [address], [facility] 6 15:45:51 Wheezing symptom [id number] Completed 12/30/2016 Peyman Healy MD [address], [place], [address], [facility] 7 10:24:02 Acute sinusiti s [id number] Completed 12/30/2016 Peyman Healy MD [address], [place], [address], [facility] 7 10:23:40 Acute asthma 661622961 Completed 12/30/2016 Peyman Healy MD [address], [place], [address], [facility] 7 10:24:04 Acute allergic reaction 980154701 Completed 12/30/2016 Peyman Healy MD [address], [place], [address], [facility] 7 10:23:59 Fatigue 03898541 Completed 12/30/2016 BRODY Roberts [address], [place], [address], [facility] 2 14:05:52 Irritabl e bowel syndrome 39181052 Active Susan Jiang PA-C [address], [place], [address], [facility] 6 15:45:51 Acute pharyngi tis 315705835 Completed 12/30/2016 Peyman Healy MD [address], [place], [address], [facility] 7 10:24:09 Pain in calf 870854512 Completed 12/30/2016 Peyman Healy MD [address], [place], [address], [facility] 7 10:24:07 Synovial cyst of knee 646926328 Completed 12/30/2016 Peyman Healy MD [address] [facility] [address], [place], [address], [facility] 7 10:23:54 Lumbar sprain 874124100 Completed 12/30/2016 Peyman Healy MD [address] [facility] [address], [place], [address], [facility] 7 10:23:49 Sprain pelvic ligament 552809161 Completed 12/30/2016 Peyman Healy MD [address] [facility] [address], [place], [address], [facility] 7 10:23:46 Inflamma tion of sacroili ac joint 48383002 Completed 12/30/2016 Peyman Healy MD [address] [facility] [address], [place], [address], [facility] 7 10:24:21 Anemia of pregnanc y 29149304 Completed 201512/30/2016 Peyman Healy MD [address] [facility] [address], [place], [address], [facility] 7 10:23:35 Generali zed anxiety disorder 47462772 Active 2016 GABRIELA Coburn, [facility] 7 11:53:56 Primary biliary cholangi tis 87335057 Active 2019 BRODY Roberts [address] [facility] [address], [place], [address], [facility] 0 10:57:26 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 no other organs. nephrect sandoval 09/2019 Removal Reason: radical nephrect sandoval 09/2019 Lynda ortega [facility] 3 15:23:27 Neoplasm of left kidney [id number] 681177 Completed 202004/27/2023 Removal Reason: radical nephrect sandoval 09/2019 Lynda ortega [facility] 3 15:23:00 Low back pain 606714967 Active 2021 RECORDED 05/13/20 12 3:41PM BY ALLA BAUM MA, ANNOTATI ON/ADDEN DUM Brady Sanchez, [facility] [address] [facility] [address], [place], [address], [facility] 2 10:36:13 Plantar fasciiti s of right foot 13391250770 484867 Active 2021 Brady Sanchez, [facility] [address] [facility] [address], [place], [address], [facility] 2 13:53:56 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 77790058669 920033 Active 2021 Brady Sanchez, [facility] [address] [facility] [address], [place], [address], [facility] 2 13:54:13 Hyperlip idemia 80475298 Active 2021 Brady Sanchez, [facility] [address] [facility] [address], [place], [address], [facility] 2 14:05:27 Fatigue 13736340 Active 2021 Brady Sanchez, [facility] [address] [facility] [address], [place], [address], [facility] 2 14:05:52 Impaired fasting glycemia 180950640 Active 2021 Brady Sanchez [facility] [address] [facility] [address], [place], [address], [facility] 2 14:05:59 Pain of left hip joint 69307025478 9100 Active 2021 [facility] [address] [facility] [address], [place], [address], [facility] 2 11:29:28 Obesity 418894530 Active 2022 [facility] 15:21:38 Cough 17955333 Active 2023 IMPRESSI ON: PRODUCTI VE COUGH X 10D, + TOBACCO, WILL TX, ADVISE TO STOP SMOKING, RTC IF PERSISTE NT OR WORSENIN G SYMPTOMS .; RECORDED 10/05/19 14 2:26PM BY DIANA NUNEZ MA, ANNOTATI ON/ADDEN DUM BRODY Roberts [address] [address], [place], [address], [facility] 4 11:48:33 COVID-19 301421996 Active 2023 BRODY Roberts [address] [address], [place], [address], [facility] 4 12:11:32 Fever 982585838 Active 2023 BRODY Roberts [address] [address], [place], [address], [facility] 4 12:11:36 Vitamin D deficien cy 12864745 Active 2023 BRODY Roberts [address] [address], [place], [address], [facility] 4 15:27:42 Problem Notes None recorded. Procedures Surgical History Date Name Laterality Status Provider Name and Address Organization Details Recorded Time 08/30/19 24 Most Recent Mammogram completed Emili Martinez [facility] 08/31/2023 10:24:02 07/14/19 23 Mammogram Screening completed Danielle Rodriguez [facility] 07/14/2022 16:24:36 05/05/20 22 fasciotomy of foot completed BRODY Roberts [address], [place], [address], [facility] 04/27/2023 09:18:39 09/07/19 20 radical nephrectomy completed Greta Glasgow [facility] 09/11/2019 15:28:04 09/07/19 20 Cancer Surgery completed Sherlyn Brown MA [facility] 03/27/2021 08:40:34 07/14/19 17 Date of Last Colonoscopy completed Diana slaughter MA [facility] 12/30/2016 10:13:20 07/14/19 17 Colonoscopy completed BRODY Roberts [address] [facility] [address], [place], [address], [facility] 02/14/2019 15:53:00 02/11/20 07 delivery completed Diana slaughter MA [facility] 02/14/2019 15:32:01 01/14/20 04 Caesarean Section completed Diana slaughter, GABRIELA [facility] 02/14/2019 15:31:51 09/03/19 00 Tonsillectomy completed Sherlyn Brown MA [facility] 03/27/2021 08:40:34 Tubal Ligation completed Diana slaughter MA [facility] 11/21/2014 14:01:10 Tonsillectomy completed Sherlyn Brown MA [facility] 03/27/2021 08:40:34 Imaging Results Imaging Date Name Status LastModified by Organization Details LastModified Time 04/21/2022 electrocardiogram completed In-Offi ce Order Internal Use Only DO Not Attach Compendium DO Not Attach Compendium, Do Not Delete/merge, [id number] 04/21/2022 13:39:24 04/21/2022 electrocardiogram completed [email or web address] In-Offi ce Order Internal Use Only DO Not Attach Compendium DO Not Attach Compendium, Do Not Delete/merge, [id number] 04/21/2022 13:44:28 04/15/2021 MAMMO, screening, digital, bilateral completed [email or web address] Information not available 04/23/2022 13:49:13 04/23/2022 XR, hip + pelvis, bilateral completed [facility] (Outpt Imaging) [address] [place], [address], 04/23/2022 14:30:16 07/14/2022 MAMMO, screening, digital, bilateral completed [email or web address] [facility] (Outpt Imaging) [address] [place], [address], 07/14/2022 16:24:55 07/14/2022 mm digital mammo unilat left completed [facility] (Outpt Imaging) [address] [place], [address], 07/17/2022 14:24:46 07/17/2022 US, breast, limited completed [facility] (Outpt Imaging) [address] [place], [address], 08/10/2022 12:49:24 01/15/2023 mm digital mammo unilat left completed [facility] (Outpt Imaging) [address] [place], [address], 01/15/2023 17:17:32 04/27/2023 electrocardiogram completed [email or web address] In-Offi ce Order Internal Use Only DO Not Attach Compendium DO Not Attach Compendium, Do Not Delete/merge, [id number] 04/27/2023 09:49:11 04/27/2023 electrocardiogram completed [email or web address] In-Offi ce Order Internal Use Only DO Not Attach Compendium DO Not Attach Compendium, Do Not Delete/merge, [id number] 04/27/2023 09:39:42 07/13/2023 XR, chest completed [facility] (Imaging) [address] [place], [address], 07/20/2023 08:53:36 08/24/2023 US, doppler, venous completed [email or web address] [facility] (Medical Records) [address] [place], [address], 08/25/2023 08:42:01 08/30/2023 MAMMO, screening, digital, bilateral completed [address] (Outpt Imaging) [address] [place], [address], 08/31/2023 10:24:05 11/02/2023 CT, abdomen + pelvis, w/ contrast completed [facility] [address] [place], [address], 11/03/2023 13:36:14 12/17/2023 XR, chest completed [facility] (Medical Records) [address] [place], [address], 12/17/2023 14:14:49 12/17/2023 CT, abdomen + pelvis, w/o contrast completed [address] (Medical Records) [address] [place], [address], 12/20/2023 08:52:21 Procedure Notes None recorded. Medical Equipment None Reported. Allergies Allergen ID Allergen Name Allergen Category Reaction Reaction Severity Criticality Documentation Date Start Date Code Code System Note Provider Name and Address Organization Details Recorded Time amoxicill in medicatio n other Not available Not available 10/18/2014 723 RxNorm cause s yeast infec tion in the past GABRIELA Coburn [facility] 5 12:49:17 2838 Keflex medicatio n itching Not available Not available 01/16/2014201316 7 RxNorm GABRIELA Coburn [facility] 5 12:49:17 2839 Medicinal product containin g penicilli n and acting as antibacte rial agent (product) medicatio n Not available Not available Not available 01/16/20142013 27825 05 SNOMED REACT ION: AMOX, CAUSE S YEAST INFEC TIONS ; COMME NT: RECOR DED 10/04 2:30P M BY SRINIVAS THOMAS MA, OFFIC E VISIT ; Peyman Healy MD [address] [facility] [address], [place], [address], [facility] 5 16:56:28 25597 Non-stero idal anti-infl ammatory agent (product) medicatio n other moderate low 04/21/2022 36914 005 SNOMED 1 BRODY Schrader [address] [facility] [address], [place], [address], [facility] 2 13:55:13 Medications Name Sig Start Date [...] completed RECORDED 11/11/19 12 10:28AM BY BABITA ANDERSON, PANaeemC, MEDICATI ON AUTO-PACO CTIVATIO N; Not Available Not Available Not Available levofloxa uriel 500 mg tablet DAILY 09/07 completed RECORDED 02/08/20 13 10:54AM BY MONAE ARGUETA, MEDICATI ON AUTO-PACO CTIVATIO N; Not [...] 04/30 completed RECORDED 04/30/20 10 12:57PM BY SYDNIE FLORES, OFFICE VISIT;DR TRACY Irizarry Not Available [...] and Address Organization Details Last Updated DateTime 2 158.75 cm 33.9 kg/m2 29963.0 7 g 96 /min 96 % 96 % 97.97 [degF] 117 mm[Hg] 80 mm[Hg] Sandra Mcconnell MA [facility] 2 10:50:01 Date Recorded Body height Body mass index (BMI) Body weight Heart rate Oxygen saturation Oxygen saturation in Arterial blood by Pulse oximetry Body temperature Systolic blood pressure Diastolic blood pressure Provider Name and Address Organization Details Last Updated DateTime 3 158.75 cm 34 kg/m2 30785.9 6 g 64.99 /min 99 % 99 % 98.4 [degF] 136 mm[Hg] 84 mm[Hg] Estefania Anguiano [facility] 3 10:32:43 Date Recorded Body height Body mass index (BMI) Body weight Heart rate Oxygen saturation Oxygen saturation in Arterial blood by Pulse oximetry Body temperature Systolic blood pressure Diastolic blood pressure Provider Name and Address Organization Details Last Updated DateTime 3 158.75 cm 34 kg/m2 03094.9 6 g 74 /min 98 % 98 % 98.5 [degF] 152 mm[Hg] 91 mm[Hg] Maru Sewell [facility] 3 08:55:13 Date Recorded Systolic blood pressure Diastolic blood pressure Provider Name and Address Organization Details Last Updated DateTime 04/27/2023 136 mm[Hg] 80 mm[Hg] BRODY Roberts [address], [address], [facility] 04/27/2023 09:27:54 Date Recorded Body height Body mass index (BMI) Body weight Body temperature Oxygen saturation Oxygen saturation in Arterial blood by Pulse oximetry Heart rate Systolic blood pressure Diastolic blood pressure Provider Name and Address Organization Details Last Updated DateTime 4 158.75 cm 34.6 kg/m2 07293.7 4 g 98.4 [degF] 98 % 98 % 85 /min 127 mm[Hg] 85 mm[Hg] Sydnie Flores MA [facility] 4 11:28:21 Date Recorded Body height Body mass index (BMI) Body weight Heart rate Oxygen saturation Oxygen saturation in Arterial blood by Pulse oximetry Body temperature Systolic blood pressure Diastolic blood pressure Provider Name and Address Organization Details Last Updated DateTime 4 158.75 cm 34 kg/m2 02865.9 6 g 72 /min 99 % 99 % 98.2 [degF] 147 mm[Hg] 79 mm[Hg] Maru Sewell MA [facility] 4 15:21:08 Date Recorded Systolic blood pressure Diastolic blood pressure Provider Name and Address Organization Details Last Updated DateTime 05/02/2024 120 mm[Hg] 66 mm[Hg] Brady Sanchez [facility] [address] [facility] [address], [place], [address], [facility] 05/02/2024 16:01:22 Social History Question Answer Notes LastModified by Organizat ion Details LastModified Time Tobacco Smoking Status Former Smoker pt quit 09/2019 GABRIELA Waller, [facility] 03/26/2020 10:39:09 Do You Have An [...] not available 04/23/2022 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 1-5yearssincel marinocimikhail [email or web address] Information not available 03/27/2021 Live Alone Or [...] Or Greater Than 100 Degrees Fahrenheit? No [email or web address] Information not available 03/26/2020 Are You Or Anyone In Your Household A Health Care Provider Or Emergency Responder? Yes Information not available 03/26/2020 To The Best Of Your Knowledge Have You Been In Close Proximity To Any Individual Who Tested Positive For COVID-19? No [email or web address] Information not available 03/26/2020 Have You Recently Traveled To A COVID-19 High Risk Area Or Gathering In The Last 10 Days? No [email or web address] Information not available 07/23/2020 What Was The Date Of Your Most Recent Tobacco Screening? 05/02/2024 [email or web address] Information not available 05/02/2024 How Many Children Do You Have? 2 Gabrile And Jas Information not available 12/30/2016 Do You Use Your Seat Belt Or Car Seat Routinely? Yes [email or web address] Information not available 03/27/2021 Seat Belts Used Routinely Yes Information not available 04/23/2022 Are You Sexually Active? No Information not available 12/30/2016 Smoke Alarm In Home Yes Information not available 04/23/2022 Do You Have Smoke And Carbon Monoxide Detectors In Your Home? Yes [email or web address] Information not available 03/27/2021 At What Age Did You Start Smoking Tobacco? 15 Information not available 11/21/2014 Are You Passively Exposed To Smoke? No Information not available 06/05/2015 Do You Or Have You Ever Used Smokeless Tobacco? Never Used Smokeless Tobacco Information not available 02/14/2019 How Much Tobacco Do You Smoke? No [email or web address] Information not available 03/26/2020 Do You Use [...] available 10:40:59 Father Malignant tumor of lung Not available 03/27 08:40:16 Father Kidney disease [email or web address] Not available 03/27 08:40:16 Mother Malignant neoplasm of uterus molar pregna ncy- hyster ectomy Not available 04/23/2022 10:40:59 Mother Opioid dependence Not available 04/23 10:40:59 Mother Substance abuse [email or web address] Not available 03/27 08:40:16 Mother Seizure disorder Not available 03/27 08:40:16 Mother Osteoporosis [email or web address] Not vasile ilable 03/27/2021 08:40:16 Mother Disorder of thyroid gland Not available 2021 10:40:59 Brother Essential hypertension 45 possib ly Not available 04/23/2022 10:40:59 Brother Alcohol abuse [email or web address] Not available 2017 15:39:14 Brother Depressive disorder [email or web address] Not available 03/27 08:40:16 Maternal Grandfather Opioid dependence Not available 04/23 10:40:59 Unspecified Relation Substance abuse [email or web address] Not available 03/27 08:40:16 Son Allergy Not available 1 10:40:59 Medical History Condition Response Coronary Artery Disease N Other N Gout N Kidney Stones N Blood Diseases N Hyperthyroidism N Breast Cancer N mrsa [...] Influenza, split virus, trivalent, preservative 6 completed Diana Swain [facility] 12/30/2016 10:11:22 Influenza, split virus, quadrivalent, preservative 8 completed [facility] 10:03:42 Influenza, split virus, quadrivalent, preservative 9 completed [facility]/14/2019 09:27:56 COVID-19, mRNA, LNP-S, PF, 100 mcg/0.5mL dose or 50 mcg/0.25mL dose 0 completed [facility] 09/12/2021 10:18:38 Influenza, split virus, quadrivalent, PF 1 completed [facility] 09/12/2021 10:18:38 COVID-19, mRNA, LNP-S, PF, 100 mcg/0.5mL dose or 50 mcg/0.25mL dose 1 completed [facility] 09/12/2021 10:18:38 Influenza, split virus, quadrivalent, PF 7 completed [facility] 09/12/2021 10:18:39 Influenza, split virus, trivalent, preservative 5 completed GABRIELA Valadez, [facility] 12/24/2021 10:23:35 Influenza, split virus, quadrivalent, PF 3 completed GABRIELA Valadez, [facility] 07/13/2023 11:16:35 Tdap 1 completed Not Available [facility] 01/16/2014 13:38:10 Influenza, split virus, quadrivalent, PF 0 completed GABRIELA Waller, [facility] 03/26/2020 10:48:58 Tdap 1 completed GABRIELA Carrizales, [facility] 03/27/2021 10:06:49 Influenza, split virus, quadrivalent, PF 2 completed Brady Sanchez [facility] [address], [address], [facility] 04/23/2022 11:29:33 Past Encounters Encounter ID Performer Location Encounter Start Date Encounter Closed Date Diagnosis/Indication Diagnosis SNOMED-CT Code Diagnosis ICD10 Code [id number] 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 [id number] [facility] [place] [address] 05/07/2009 00:00:00 [id number] 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 [address] [facility] [place] [address] 04/03/2010 00:00:00 [id number] 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 [address] [facility] [place] [address] 04/30/2010 00:00:00 [id number] 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 [address] [facility] [place] [address] 08/22/2010 00:00:00 [id number] 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 [address] [facility] [place] [address] 09/19/2010 00:00:00 [id number] 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 [address] [facility] [place] [address] 11/17/2010 00:00:00 [id number] 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 [address] [facility] [address] [place] [address] 06/02/2011 00:00:00 [id number] 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 [address] [place] [address] 09/15/2011 00:00:00 [id number] 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 [address] [place] [address] 10/29/2011 00:00:00 [id number] 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 [address] [facility] [address] [place] [address] 11/11/2011 00:00:00 [id number] 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 [address] [facility] [place] [address] 05/13/2012 00:00:00 [id number] 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 [address] [facility] [place] [address] 08/31/2012 00:00:00 [id number] 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 [address] [facility] [place] [address] 02/07/2013 00:00:00 [id number] 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 [address] [facility] [place] [address] 04/12/2013 00:00:00 [id number] 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 [address] [facility] [place] [address] 08/30/2013 00:00:00 [id number] 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 [address] [facility] [place] [address] 10/04/2013 00:00:00 [id number] Diana thomas [place] Main Office [address] [place] [address] 03/27/2014 09:46:56 03/27/2014 10:49:27 Wheezing symptom 860409023 Tobacco de pendence syndrome 19649930 [id number] Carol Melo [place] Main Office [address] [place] [address] 09/14/2014 14:46:39 09/14/2014 15:17:09 Acute sinusitis 37545800 Tobacco de pendence syndrome 07272127 [id number] Main Office [address] [address] [place] [address] 10/18/2014 12:40:42 10/18/2014 13:27:05 Acute asthma 372657776 Acute zhao rgic reaction 366858262 Tobacco de pendence syndrome 59823698 [id number] Main Office [address] [address] [place] [address] 11/21/2014 13:28:44 11/21/2014 14:47:30 Adult health examination 331837793 Hyperlipidemia 90071636 Fatigue 49808125 Tobacco de pendence syndrome 77779772 Irritable bowel syndrome 72700761 Screening for malignant neoplasm of breast 597693184 Screening for malignant neoplasm of cervix 971334744 Body mass index 25-29 - overweight 628694595 [id number] Isaac Masters Main Office [address] [address] [place] [address] 12/29/2014 09:25:24 12/29/2014 09:50:58 Acute pharyngitis 804492826 [id number] Peyman Healy MD Main Office [address] [address] [place] [address] 04/24/2015 13:09:18 04/24/2015 15:20:58 Acute sinusitis 86744913 J01.90 Anxiety state 167919488 F41.1 [id number] Peyman Healy MD Main Office [address] [address] [place] [address] 06/05/2015 14:02:13 06/05/2015 15:35:44 Anxiety state 035424549 F41.1 Pain in calf 082237209 M 79.339 [id number] Peyman Healy MD Main Office [address] [address] [place] [address] 07/23/2015 10:47:52 07/23/2015 12:10:04 Lumbar sprain 129988142 S33.9XXA Sprain pel elana ligament 377475438 S33.9XXA [id number] Peyman Healy MD Main Office [address] [address] [place] [address] 12/25/2015 13:17:42 12/25/2015 14:58:37 Anxiety state 449822994 F41.1 Tobacco de pendence syndrome 34643516 F17.290 Hyperlipidemia 40836066 E78.5 Adult heal th examination 371643160 Z00.00 Fatigue 82052019 R53.83 Body mass index 25-29 - overweight 558020006 Z68.29 Inflammati on of sacroiliac joint 22496682 M46.1 [id number] Peyman Healy MD Main Office [address] [address] [place] [address] 03/18/2016 09:15:07 03/18/2016 10:32:41 Irritable bowel syndrome 42376186 K58.9 Diarrhea 27218859 R19.7 Knee pain 17327169 M25.5 61 [id number] Barbara daleenzo Main Office [address] [address] [place] [address] 08/07/2016 10:37:00 08/07/2016 11:16:42 Upper respiratory infection 68257698 J06.9 [id number] Peyman Healy MD Main Office [address] [address] [place] [address] 12/30/2016 10:04:42 12/30/2016 11:06:58 Adult health examination 115918538 Z00.00 Tobacco de pendence syndrome 82145767 F17.290 Elevated blood-pressure reading without diagnosis of hypertension 184386861 R03.0 Anxiety state 434725733 F41.1 Hyperlipidemia 08347093 E78.5 Fatigue 08042537 R53.83 Hyperhidrosis 042889950 R61 Nasal vestibulitis 95664 000 J34.89 Body mass index 25-29 - overweight 388025770 E66.3 Z68.25 [id number] Sim Garcia MD Main Office [address] [address] [place] [address] 09/15/2017 13:21:04 09/15/2017 14:12:54 Acute sinusitis 30221387 J01.90 [id number] Peyman Healy MD Main Office [address] [address] [place] [address] 02/11/2018 15:00:11 02/11/2018 16:22:57 Adult health examination 304152279 Z00.00 Tobacco de pendence syndrome 46618109 F17.290 Generalize d anxiety disorder 12963499 F41.1 Irritable bowel syndrome 10402590 K58.9 Body mass index 25-29 - overweight 125923419 E66.3 Z68.25 Hyperlipidemia 09705796 E78.5 Fatigue 02796637 R53.83 Greater tr ochanteric pain syndrome 5742250 M70.62 Neck pain 10557681 M54.2 Inflammati on of sacroiliac joint 43629466 M46.1 [id number] Lynda Barros Main Office [address] [address] [place] [address] 04/19/2018 10:32:33 04/19/2018 12:00:32 Needs influenza immunization 555449232 Z23 Cough 39893553 R05 Infective pneumonia 3123 72824 J18.9 [id number] Sim Garcia MD Main Office [address] [address] [place] [address] 09/02/2018 09:42:20 09/02/2018 10:35:38 Acute pharyngitis 470645297 J02.9 [id number] BRODY Roberts Main Office [address] [address] [place] [address] 02/14/2019 15:20:06 02/14/2019 16:13:10 Adult health examination 237919870 Z00.00 Tobacco de pendence syndrome 95856115 F17.290 Hyperlipidemia 48169420 E78.5 Family his tory of Thyroid disorder 663865267 Z83.49 [id number] Conrado Jiang PA-C Main Office [address] [address] [place] [address] 06/14/2019 09:04:31 06/14/2019 10:28:17 Pain in left foot [id number] 45127 M79.672 [id number] Melina Mckay Main Office [address] [address] [place] [address] 08/28/2019 15:25:19 08/28/2019 16:54:55 Acute pharyngitis 316470275 J02.9 Eustachian tube disorder 84466296 H69.93 [id number] BRODY Roberts Main Office [address] [address] [place] [address] 03/26/2020 10:23:16 03/26/2020 11:21:36 Adult health examination 807231011 Z00.00 Needs infl uenza immunization 830204081 Z23 Elevated blood-pressure reading without diagnosis of hypertension 929696574 R03.0 Irritable bowel syndrome 96029938 K58.9 Body mass index 25-29 - overweight 948376382 Z68.28 E66.3 Screening for cardiovascular system disease 583780831 Z13.6 Major depr ession single episode, in partial remission 47209297 F32.4 [id number] Melina Woody Main Office [address] [address] [place] [address] 05/27/2020 10:30:41 05/27/2020 11:38:57 Strain of muscle of right shoulder 3696138107 5503295 S46.911A Inflammati on of sacroiliac joint 50398184 M46.1 [id number] BRODY Roberts Main Office [address] [address] [place] [address] 07/23/2020 14:49:33 07/23/2020 15:25:15 Otalgia 73965816 H92.02 Cervical lymphadenopathy 346657311 R59.0 Exposure t o viral disease 5000942951 21848 Z03.818 [id number] Bailee Hirsch MD Main Office [address] [address] [place] [address] 09/27/2020 12:55:59 09/27/2020 13:27:31 Pain of right ankle joint 0269726098 6544341 M25.571 Plantar fa sciitis of left foot 8032879810 1680725 M72.2 Pain in left foot 325862 3688 16469 M79.672 [id number] Lynda Barros [facility] [address] [address] [place] [address] 10/02/2020 11:39:51 10/02/2020 15:16:28 Diarrhea 55941772 R19.7 Abdominal pain 00747969 R10.9 Exposure t o viral disease 1298494740 82831 Z03.818 Nausea 091207599 R11.0 Primary bi liary cholangitis 03323495 K74.3 Renal cell carcinoma 702 594746 C64.9 [id number] Brady Sanchez [facility] Main Office [address] [place] [address] 03/27/2021 08:31:51 03/27/2021 09:24:31 Adult health examination 441893912 Z00.00 Elevated blood-pressure reading without diagnosis of hypertension 369100769 R03.0 Renal cell carcinoma 702 968011 C64.9 Primary bi liary cholangitis 87571132 K74.3 Generalize d anxiety disorder 24853954 F41.1 Administra tion of viral vaccine 72325805 Z23 [id number] Livan Fatima MD Main Office [address] [place] [address] 03/31/2021 13:28:41 03/31/2021 14:16:10 Cellulitis of left upper limb 3951114335 2980761 L03.114 681005 Brady Sanchez [facility] Main Office [address] [place], [place] [address] [address] 09/12/2021 10:16:27 09/12/2021 10:46:05 Low back pain 644743905 M54.50 History of malignant neoplasm of kidney 506996886 Z85.528 Primary bi liary cholangitis 85781131 K74.3 [id number] [facility] [address] [place] [address] 12/24/2021 09:23:33 12/24/2021 11:19:34 Cough 99353846 R05.1 Pneumonia 601747831 J18. 9 [id number] Brady Sanchez [facility] Main Office [address] [place] [address] 04/21/2022 13:10:00 04/21/2022 14:08:51 Pre-surgery evaluation 391706537 Z01.818 Renal cell carcinoma 702 984683 C64.9 Elevated blood-pressure reading without diagnosis of hypertension 731908385 R03.0 Primary bi liary cholangitis 57454764 K74.3 Fibromatos is of plantar fascia of right foot 7991942714 2461219 M72.2 Hyperlipidemia 42690405 E78.5 Fatigue 50608058 R53.83 Impaired f asting glycemia 010553214 R73.01 Generalize d anxiety disorder 32479153 F41.1 [id number] BRODY Roberts Main Office [address] [address] 04/23/2022 10:39:54 04/23/2022 11:22:36 Adult health examination 179019166 Z00.00 Needs infl uenza immunization 619507568 Z23 Fibromatos is of plantar fascia of right foot 7528385724 8985989 M72.2 Primary bi liary cholangitis 38940932 K74.3 Renal cell carcinoma 702 100356 C64.9 Generalize d anxiety disorder 52105963 F41.1 Pain of le ft hip joint 8668273631 74716 M25.552 [id number] Susan Jiang PA-C Main Office [address] [address] 03/16/2023 10:12:04 03/16/2023 10:58:48 Viral upper respiratory tract infection 486230572 J06.9 [id number] Lynda Barros Main Office [address] [address] 04/27/2023 08:48:38 04/27/2023 09:46:23 Adult health examination 870328078 Z00.00 Fibromatos is of plantar fascia of right foot 2629096020 2311169 M72.2 Primary bi liary cholangitis 13319999 K74.3 Generalize d anxiety disorder 82387549 F41.1 Hyperlipidemia 89766250 E78.5 Impaired f asting glycemia 579068857 R73.01 Fatigue 71499876 R53.83 Body mass index 30+ - obesity 672667626 Z68.34 Elevated blood-pressure reading without diagnosis of hypertension 131470343 R03.0 History of malignant neoplasm of kidney 119874766 Z85.528 Obesity 530929399 E66.9 [id number] [facility] Main Office [address] [address] [place] [address] 07/13/2023 11:12:57 07/13/2023 11:59:34 Fever 283823338 R50.9 Cough 65746077 R05.9 COVID-19 906189781 U07.1 [id number] [facility] Main Office [address] [address] [place] [address] 05/02/2024 15:16:10 05/02/2024 15:45:05 Adult health examination 941518743 Z00.00 Primary bi liary cholangitis 32176865 K74.3 History of malignant neoplasm of kidney 016595726 Z85.528 Generalize d anxiety disorder 88831562 F41.1 Hyperlipidemia 74954230 E78.5 Impaired f asting glycemia 476261370 R73.01 Fatigue 41781884 R53.83 Elevated blood-pressure reading without diagnosis of hypertension 774788414 R03.0 Obesity 923146505 E66.9 Body mass index 30+ - obesity 920800396 Z68.34 Vitamin D deficiency 347 57270 E55.9 Health Concerns Section Related Observation LastModified by Organization Detai ls LastModified Time None Recorded Concern Status LastModified by Organization Details LastModified Time None Recorded Advance Directives Directive Y: signed on 11/21/2014 Payers Encounter Date Sequence Insurance Name Policy Number Policy Ward Covered Member ID Ward Member ID Guarantor Name 04/23/2022 1 [facility] (O) [id number] Tere Junior [id number] Tere Junior 03/16/2023 1 [employer] [place] [id number] Tere Junior [id number] Tere Junior 04/27/2023 1 [employer] [place] [id number] Tere Junior [id number] Tere Junior 07/13/2023 1 [employer] [place] [id number] Teer Junior [id number] Tere Ruiz [place] 05/02/2024 1 [employer] [facility] (EPO) [id number] Tere Junior [id number] Tere Ruiz [place] Notes Date Note Type Note Provider Name and Address Organization Details Recorded Time 04/23/2022 text/html Generic HPI TemplateReported bypatient.Notes:Presen ts for PE,- left hip pain, ? bursitis sx x 3 weeks. Topical med not helping, unable to take NSAIDS due to hx nephrectomy.- Decreased sertraline to 25mg, no problem so far, will give weaning schedule. BRODY Roberts [address] [facility] [address], [place], [address], [facility] 04/23/2022 11:30:25 03/16/2023 text/html 48 year old fema le c/o 3 day onset of sinus congestion, fatigue, body aches and headache. Tested neg for COVID. Pt. denies fever or chills. NO cough. C/o ear fullness. NO sore throat reported, but postnasal secretions. NO facial pain. Susan Jiang PA-C [address] [facility] [address], [place], [address], [facility] 03/16/2023 12:05:23 04/27/2023 text/html Generic HPI TemplateReported bypatient.Notes:Presen ts for PE,No concerns but BP is high. No headaches, sometimes does get chest discomfort at random times, no palpitationsShe did stop sertraline completely, felt angry and was crying all the time, re-started 25mg and feeling better overall, not crying all the time.No period since FebruaryEating out more, cut out afternoon coffee, stress [facility]tega, [facility] 04/27/2023 15:30:51 07/13/2023 text/html Generic HPI TemplateReported bypatient.Notes:Sx started wednesday- body aches, couldn't sleep, chills, fever, congestion, couhg with production, slight SOB with activity, no N/V/D, no sore throat, ear pain, no headache. neg covid- this morning.Neg flu test here.Taking nyquil and dayquil with some relief. - feels like chest hurts. BRODY Roberts [address] [facility] [address], [place], [address], [facility] 07/13/2023 12:14:09 05/02/2024 text/html Generic HPI TemplateReported bypatient.Notes:Presen ts for PE,No concerns but BP is high. No headaches, sometimes does get chest discomfort at random times, no palpitationshas lost 4 lbs and 13 inches since January. is having hot flashes, night sweats, mood changes BRODY Roberts [address] [facility] [address], [place], [address], [facility] 05/02/2024 16:02:35 OBGyn Episode No OBEpisode recorded.
[2024-06-15 08:56] LABS: Alanine Aminotransferase 40 U/L (0-31); Albumin Level 4.1 g/dL (3.5-5.0); Alkaline Phosphatase 113 U/L (39-117); Aspartate Amino Transferase 33 U/L (5-31); Bilirubin Direct 0.2 mg/dL (0.0-0.5); Bilirubin Total 0.5 mg/dL (0.0-1.0); Total Protein 7.3 g/dL (6.5-8.0)
== END 2024-06-15 07:59 | disposition home or self-care (01) ==
LOC: HO.LAB 07:58
PROVIDERS: PCP Registered Nurse; Visit Provider Internal Medicine Gastroenterology
DX: K74.3 Primary biliary cirrhosis (principal)
CPT/HCPCS: 36415; 80076

== ENCOUNTER 2024-08-17 16:12 | Outpatient (AMB) | payer OTHER, SELFPAY ==
[2024-08-17 16:13] VITALS: BP 140/82; PULSE 73; TEMP 36.6; O2SAT 98
--- NOTE | 2024-08-17 16:13 | AM.OFFWIN_ITS ---
Intake Vital Signs 08/17/24 16:13 Height 5 ft 2 in BP 140/82 H Blood Pressure Location Rt brachial Position Sitting Pulse 73 Pulse Source Pulse Oximeter Temp 97.9 F Temp Source Oral Pulse Oximetry (%) 98 Oxygen Delivery Method Room Air Intake Visit Reasons: EP RT foot pain/stress fracture? Patient Tobacco Use Status: Never used Tobacco Allergies amoxicillin Allergy (Verified 08/17/24 16:13) Rash cephalexin [From Keflex] Allergy (Verified 08/17/24 16:13) Rash Do you need a note to return to daycare/school/sports/work: No HPI HPI Comments History of Present Illness Details History of Present Illness - The patient is a 49-year-old female pr esenting with foot pain following a kickboxing class approx 1 week ago. - A foot stress fracture history and feliciano carol for plantar fasciitis were noted in the same foot. - Pain began a week ago post a kickboxin g session without any direct trauma, with activities mainly involving jumping. - Pain persists despite the patient bein g able to ambulate, resulting in a noticeable limp. - Swelling is present at the top of the foot alongside pressure-induced pain and tenderness. - This issue corresponds to a previous s tress fracture from treadmill use, localized near the little toe, accentuated by the patient's atypical gait favoring the foot's outside. - pt cannot take Aleve or ibuprofen as s he is s/p nephrectomy (kidney ca) Physical Exam General: Cooperative, healthy appearing, comfortable, no acute distress and well developed Orientation: Patient oriented x3 Limitations: Limping due to foot pain Head: Normal to inspection Ears: Hearing grossly normal bilaterally Nose: Normal Nxternal nose present Face and sinus: ormal facial exam Eyes: Appearance normal, both eyes and all related structures Neck: Normal visual inspection and Yes full ROM Respiratory: Normal respiratory effort and able to speak in complete sentences. Clear to auscultation bilaterally Cardiovascular: Regular rate and rhythm. Normal S1 and S2 Skin: No rashes or lesions noted Neuro: Patient oriented x3 Extremities: as below [facility] Medical History (Updated 08/17/24 @ 16:22 by Sandee Miranda PA-C) IBS (irritable bowel syndrome) Renal cell carcinoma Surgical History (Updated 12/17/23 @ 13:49 by Safia Langley DO) History of nephrectomy, left Social History (Updated 12/17/23 @ 13:50 by Safia Langley DO) Patient Tobacco Use Status: Never used Tobacco Review of Systems Const All systems reviewed & are unremarkable except as noted in HPI and below Physical Exam Vital Signs: Last Vital Signs Temp 97.9 F 08/17/24 16:13 Pulse 73 08/17/24 16:13 BP 140/82 H 08/17/24 16:13 Pulse Ox 98 08/17/24 16:13 Oxygen Delivery Method Room Air 08/17/24 16:13 Extrem Left lower extremity: ankle Details: normal to inspection and normal ROM; no swelling and foot Details: normal capillary refill, tenderness Location: of the medial foot and of the mid foot; not of the base of the 5th metatarsal, toes with normal ROM, edema (slight) Location: of the medial foot Location: in the mid-section, vascular exam Details: normal capillary refill, tendon exam Details: active flexion normal and active extension normal and motor-sensory exam Details: light-touch normal; no unusual warmth, no abrasions, no lacerations and no ecchymosis Assessment & Plan Assessment & Plan (1) Foot pain, right: Code(s): M79.671 - Pain in right foot Plan: An X-ray of the foot is to be conducted to evaluate for any fractures, given the patient's previous history of stress fractures and current symptoms of swelling and tenderness. A differential diagnosis of stress fracture is being considered, with management to include the use of a protective boot to facilitate rest and healing. My interpretation of XR is no acute fx, pending final Rads read. Likely tendonitis. The patient is instructed to use a boot she possesses at home to rest it and use ice. Gradually wean from boot after 5-7 days and follow up with PCP if pain continues. Patient was informed and verbally consented to the use of an ambient scribe for clinic note documentation during this visit. Orders: Orders XR foot RT min 3V Today M79.671 - Pain in right foot Medications: Discontinued cyclobenzaprine Discontinued Reason: Patient Completed Course 10 mg PO TID PRN 20 tabs 0RF muscle spasm naproxen Discontinued Reason: Patient Completed Course 500 mg PO BID 14 tabs 0RF azithromycin Discontinued Reason: Patient Completed Course For 250 mg dose pack: take 500 mg today (day 1), then 250 mg for 4 days (days 2-5) 6 tabs 0RF prednisone Discontinued Reason: Patient Completed Course 20 mg PO DAILY 5 days 5 tabs 0RF Coding Level of Care Code New Pt Level 4 (66888) Diagnoses Foot pain, right M79.671
--- OUTSIDE RECORDS SUMMARY | 2024-08-17 16:14 | XMS_ITS | Patient Health Record ---
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 . [...] . 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) Active [...] Insured Coverage Start Date Coverage End Date [facility] [address] [facility] [place] [id number] Tere Junior Self - patient is the insured Medical (General) History Medical History History ICD Code Anxiety Back,Hip,and Knee pain Chicken pox keloids Psoriasis/eczema Raynauds syndrome Sciatica Anemia chronic sinusitis kidney cancer covid-19 Surgical History Surgery Date(Month/Year) Cysts removed 1980s Tonsillectomy 1998 01/2004, 03/2007 tubal ligation 2011 kidney surgery - left kidney removed 11/2020 [place] plantar fasciotomy right 2
--- OUTSIDE RECORDS SUMMARY | 2024-08-17 16:14 | XMS_ITS | Clinical Summary ---
Author Organization [address] Address [address] [place] [address] Phone Care Team Providers Care Outbound Sales Agent Name Role Phone Noah Sanchez Primary Care Provider [phone] Allergies Active Allergy Reactions Criticality Noted Date Comments Amoxicillin 06/08/2024 Cephalexin 06/08/2024 Medications sertraline (ZOLOFT) 25 mg tablet Take 1 tablet (25 mg total) by mouth 1 (one) time each day. Active hyoscyamine (ANASPAZ) 0.125 mg disintegrating tablet every 4 hours. Active fluocinolone acetonide oiL 0.01 % drops APPLY TO EARS TWICE DAILY NEEDED. 4 Active multivit with minerals/lutein (MULTIVITAMIN 50 PLUS ORAL) Take 1 tablet by mouth. 0 Active Encounters Date Type Department Care Team Description 06/16/2024 Telephone Gastroenterology - [address] [place] [phone] Sandra Simms MA 06/08/2024 8:15 AM EST Office Visit Gastroenterology - [address] [place] [phone] Roseline Leone MD Primary biliary cholangitis (CMS/HCC) (Primary Dx) 05/29/2024 Telephone Gastroenterology - [address] [place] [phone] Sandra Simms MA from Last 3 Months Surgical History Surgery Date Site/Laterality Comments NEPHRECTOMY Left SECTION x 2 COLONOSCOPY W/ BIOPSIES 07/14/2016 for diarrhea - nl bx TONSILLECTOMY Medical History Medical History Date Comments 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 Alk phos 290 +AMA 157.5 H/O Clostridium difficile infection 06/2022 initial episode 06/2019 History of renal cell cancer Family History Medical History Relation Name Comments Crohn's disease Brother Irritable bowel syndrome Brother Ulcers Mother Relation Name Status Comments Brother Mother Social History Tobacco Use Types Packs/Day Years Used Date Smoking Tobacco: Former Cigarettes Tobacco Cessation:Counseling Given: Not Answered Alcohol Use Standard Drinks/Week Comments Yes 0 (1 standard drink = 0.6 oz pur e alcohol) social Comments Unknown Sex and Gender Information Value Date Recorded Sex Assigned at Not on file Legal Sex Female 11:15 AM EDT Gender Identity Not on file Sexual Orientation Not on file Obstetrics History Last Filed Vital Signs Vital Sign Reading Time Taken Comments Blood Pressure - - Pulse - - Temperature - - Respiratory Rate - - Oxygen Saturation - - Inhaled Oxygen Concentration - - Weight 86.2 kg (190 lb) 06/08/2024 8:05 AM EST Height 157.5 cm (5' 2 ) 06/08/2024 8:05 AM EST Body Mass Index 34.75 06/08/2024 8:05 AM EST Plan of Treatment Health Maintenance Due Date Last Done Comments Breast Cancer Screening 1975 Pneumococcal Vaccine: Pediatrics (0 to 5 Years) and At-Risk Patients (6 to 64 Years) (1 of 2 - PCV) 1981 Hepatitis B Vaccines (1 of 3 - 19+ 3-dose series) 1994 Cervical Cancer Screening: Pap Smear 02/02/1996 COVID-19 Vaccine ( season) 2024 07/31/2020, 07/03/2020 Colorectal Cancer Screening: Colonoscopy 04/29/2024 Depression Screening 04/29/2024 HIV Screening 04/29/2024 Hepatitis C Screening 04/29/2024 Social Influencers of Health Screening 04/29/2024 DTaP,Tdap,and Td Vaccines (2 - Td or Tdap) 03/27/2031 03/27/2021 Influenza Vaccine Completed 04/06/2024, , 04/23/2022, Additional history exists HIB Vaccines Aged Out No longer eligi ble based on patient's age to complete this topic HPV Vaccines Aged Out No longer eligi ble based on patient's age to complete this topic Hepatitis A Vaccines Aged Out No long er eligible based on patient's age to complete this topic IPV Vaccines Aged Out No longer eligi ble based on patient's age to complete this topic MMR Vaccines Aged Out No longer eligi ble based on patient's age to complete this topic Meningococcal ACWY Vaccine Aged Out N o longer eligible based on patient's age to complete this topic RSV Immunization Patients Under 20 months Aged Out No longer eligible based on patient's age to complete this topic Varicella Vaccines Aged Out No longer eligible based on patient's age to complete this topic Procedures Procedure Name Priority Date/Time Associated Diagnosis Comments EXTERNAL CLINICAL LAB 06/16/2024 from Last 3 Months Results * External clinical lab (06/16/2024) us Provider [facility] BLOOD ORDERABLES Fin al Result from Last 3 Months Insurance [employer] [facility] Care Teams Outbound Sales Agent Relationship Specialty Start Date End Date Noah Sanchez PA [address] [phone] PCP - General Physician Enterostomal Therapy Nurse 04/28/24
--- OUTSIDE RECORDS SUMMARY | 2024-08-17 16:15 | XMS_ITS | Data Portability ---
Author Organization 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 Plan of Treatment Reminders Order Date Submit Date Provider Last Modified By Organization Details Last Modified Time Details Appointments None recorde d. Lab rapid flu (A+B) 2024 025 [facility] In-Office Order, Internal Use Only DO Not Attach Compendium DO Not Attach Compendium, Do Not Delete/merge, [id number] 5 11:16:34 rapid SARS CoV 2 Ag, QL IA, respira tory specime n 2024 025 [facility] In-Office Order, Internal Use Only DO Not Attach Compendium DO Not Attach Compendium, Do Not Delete/merge, [id number] 5 11:09:10 CMP, serum or plasma 2023 024 [facility] (Lab), [address] [place] [address], [address], 4 11:32:57 lipid panel, serum 2023 024 [facility] (Lab), [address] [place] [address], [address], 4 11:32:57 TSH, serum or plasma 2023 [facility] (Lab), [address] [place] [address], [address], 4 15:28:53 T4, free, serum 2023 [facility] (Lab), [address] [place] [address], [address], 4 15:28:53 HbA1c (hemogl obin A1c), blood 2023 [facility] (Lab), [address] [place] [address], [address], 4 15:28:52 vitamin D, 25-hydr oxy, total, serum 2023 [email or web address], [address], [place], [address], 5 09:12:11 CBC w/ auto diff 2023 024 [facility] (Lab), [address] [place] [address], [address], 4 15:28:53 rapid flu (A+B) 2023 024 [facility] In-Office Order, Internal Use Only DO Not Attach Compendium DO Not Attach Compendium, Do Not Delete/merge, [id number] 4 11:40:33 rapid SARS CoV 2 Ag, QL IA, respira tory specime n 2023 024 [facility] In-Office Order, Internal Use Only DO Not Attach Compendium DO Not Attach Compendium, Do Not Delete/merge, [id number] 4 12:02:21 CMP, serum or plasma 2022 023 [facility] (Lab), [address] [place], [address], 3 11:26:05 lipid panel, serum 2022 023 [facility] (Lab), [address] [place], [address], 3 11:26:06 TSH, serum or plasma 2022 023 [facility] (Lab), [address] [place], [address], 3 11:55:36 T4, free, serum 2022 023 [facility] (Lab), [address] [place], [address], 3 09:18:01 HbA1c (hemogl obin A1c), blood 2022 023 [facility] (Lab), [address] [place], [address], 3 09:18:01 CBC w/ auto diff 2022 023 [facility] (Lab), [address] [place], [address], 3 09:18:01 Referral None recorde d. Procedures None recorde d. Surgeries None recorde d. Imaging XR, chest - cough, fever, chills, chest pain, r/o PNA 2023 024 [facility] (Imaging), [address] [place], [address], 4 13:39:20 electro cardiog bettye 2022 023 [email or web address] In-Office Order, Internal Use Only DO Not Attach Compendium DO Not Attach Compendium, Do Not Delete/merge, [id number] 09:46:23 Medication Orders clarith romycin 500 mg tablet 2024 025 [facility]/Pharmacy #[id number], [address] [place], [address], 5 11:24:04 sertral ine 25 mg tablet 2023 024 [facility]/Pharmacy #[id number], [address] [place], [address], 15:27:20 Patient TargetsNo targets recorded. Patient Instructions Encounter Date Encounter Id Patient Instructions Last Modified By Organization Details Last Modified Time 03/16/2023 [id number] viral respirator y infection: care instructions [email or web address] Not available 03/16/2023 12:05:08 04/27/2023 [id number] dash diet: care instructions [email or web address] Not available 04/27/2023 09:52:40 high blood pressure: care instructions [email or web address] Not available 04/27/2023 09:52:41 low sodium diet (2,000 milligram): care instructions [email or web address] Not available 04/27/2023 09:52:40 starting a weigh t loss plan: care instructions [email or web address] Not available 04/27/2023 15:30:46 To call or retur n for worsening or concerns [email or web address] Not available 04/27/2023 09:15:56 07/13/2023 [id number] 10 things to do when you have covid-19 jthabet Not available 07/13/2023 12:12:37 coronavirus (covid-19): care instructions [email or web address] Not available 07/13/2023 12:12:37 To call or retur n for worsening or concerns [email or web address] Not available 07/13/2023 12:13:59 05/02/2024 [id number] dash diet: care instructions [email or web address] Not available 05/02/2024 15:27:17 high blood pressure: care instructions [email or web address] Not available 05/02/2024 15:27:17 low sodium diet (2,000 milligram): care instructions [email or web address] Not available 05/02/2024 15:27:17 starting a weigh t loss plan: care instructions [email or web address] Not available 05/02/2024 15:27:16 To call or retur n for worsening or concerns [email or web address] Not available 05/02/2024 15:32:51 07/06/2024 [id number] To call or retur n for worsening or concerns [email or web address] Not available 07/06/2024 11:04:41 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 None Reported. Results Created Date Observation Date Name Description Value Unit Range Abnormal Flag Note LastModifiedBy Organization Detail LastModifiedTime 07/13/19 24 07/13/2023 rapid SARS CoV 2 Ag, QL IA, respi rator y speci men RAPID SARS COV 2 positi ve Not Available In-Office Order Internal Use Only DO Not Attach Compendium DO Not Attach Compendium, Do Not Delete/merge, [id number] 07/13/2023 11:48:22 07/13/19 24 07/13/2023 rapid flu (A+B) Flu A negati ve Not Available In-Office Order Internal Use Only DO Not Attach Compendium DO Not Attach Compendium, Do Not Delete/merge, [id number] 07/13/2023 11:21:58 07/13/19 24 07/13/2023 rapid flu (A+B) Flu B negati ve Not Available In-Office Order Internal Use Only DO Not Attach Compendium DO Not Attach Compendium, Do Not Delete/merge, [id number] 07/13/2023 11:21:58 07/06/19 25 07/06/2024 rapid flu (A+B) Flu A negati ve Not Available In-Office Order Internal Use Only DO Not Attach Compendium DO Not Attach Compendium, Do Not Delete/merge, [id number] 07/06/2024 10:50:01 07/06/19 25 07/06/2024 rapid flu (A+B) Flu B negati ve Not Available In-Office Order Internal Use Only DO Not Attach Compendium DO Not Attach Compendium, Do Not Delete/merge, [id number] 07/06/2024 10:50:01 07/06/19 25 07/06/2024 rapid SARS CoV 2 Ag, QL IA, respi rator y speci men RAPID SARS COV 2 negati ve Not Available In-Office Order Internal Use Only DO Not Attach Compendium DO Not Attach Compendium, Do Not Delete/merge, [id number] 07/06/2024 10:50:14 04/27/2004/27/2023 shelia johnson am No observ ation record ed. [email or web address] In-Office Order Internal Use Only DO Not Attach Compendium DO Not Attach Compendium, Do Not Delete/merge, [id number] 04/27/2023 09:49:11 04/27/20 shelia johnson am No observ ation record ed. [email or web address] In-Office Order Internal Use Only DO Not Attach Compendium DO Not Attach Compendium, Do Not Delete/merge, [id number] 04/27/2023 09:39:42 07/13/1907/13/2023 XR, chest No observ ation record ed. [facility] (Imaging) [address] [place], [address], 07/20/2023 08:53:36 08/24/19 24 08/24/2023 US, doppl er, venou s No observ ation record ed. [email or web address] [place] [address] (Medical Records) [address] [place], [address], 08/25/2023 08:42:01 08/30/19 24 08/30/2023 MAMMO , [...] raphic screen ing BI-RAD S: 1 (Negat cj) Lay letter mailed to bert walker WSN: [id number] Orderi ng Physic yves: Laura LICONA, Ian Richard Dictat ed By: Leo Villaseñor MD Dictat ed Date/T sha: 4:38 pm Review ed By: Leo Villaseñor MD Signed By: Leo Villaseñor MD Signed Date/T sha: 4:38 pm Transc ribed By: CSB Transc riptio n Date/T sha: 1:13 pm Birads : Bert walker Class: Outpat ient [address] (Outpt Imaging) [address] [place], [address], 08/31/2023 10:24:05 11/03/19 24 11/02/2023 CT, abdom en + pelvi s, w/ contr ast No observ ation record ed. [facility] [address] [place], [address], 11/03/2023 13:36:14 12/17/19 24 12/17/2023 XR, chest No observ ation record ed. [facility] (Medical Records) [address] [place], [address], 12/17/2023 14:14:49 12/17/19 24 12/17/2023 CT, abdom en + pelvi s, w/o contr ast No observ ation record ed. [address] (Medical Records) [address] [place], [address], 12/20/2023 08:52:21 Result Notes None recorded. Problems Name Problem SNOMED Code Status Onset Date Resolution Date Notes Provider Name and Address Organization Details Recorded Time Acute pharyngi tis 244498066 Completed 201101/16/2014 RECORDED 05/13/20 12 3:41PM BY PAOLA MENCHACA MA, ANNOTATI ON/ADDEN DUM Peyman Healy MD [address] [facility] [address], [place], [address], [facility] 7 10:24:09 Adult health examinat ion Completed 201303/18/2016 Diana martines [place] null, [facility] 6 09:23:31 Anxiety state 252280542 Completed 201312/30/2016 Peyman Healy MD [address] [facility] [address], [place], [address], [facility] [place] 7 10:23:44 Backache 993603945 Completed 201301/16/2014 IMPRESSI ON: > 1 WEEK OF WORSENIN G BACK PAIN, UNABLE TO STAND UPRIGHT, LEGS GIVING OUT. PAIN NOW RADIATIN G INTO BUTTOCKS AND ANTERIOR THIGHS. MRI REVEALED SCHMORL' S NODES, OTHERWIS E NEG. TO PSS FOR FURTHER EVAL.; RECORDED 10/05/19 14 2:28PM BY DIANA NUNEZ MA, ISAIAHATI ON/ADDEN DUM Susan Jiang PA-C [address] [facility] [address], [place], [address], [facility] [place] 6 15:45:51 Bronchit is [id number] Completed 201201/16/2014 RECORDED 07/28/19 13 1:45AM BY PAOLA MENCHACA MA, ANNOTATI ON/ADDEN DUM Susan RHODESC [address] [facility] [address], [place], [address], [facility] [place] 6 15:45:51 Acute bronchit is 68545656 Completed 201301/16/2014 IMPRESSI ON: LIKELY MOSTLY VIRAL SXS, HOWEVER DUE TO SMOKING STATUS AND RISK OF BACTERIA L BRONCHIT IS OR PNA TO TX WITH ABX. REST, FLUIDS, COUGH MED AT NIGHT PRN. CALL FOR WORSENIN G/PRN.; RECORDED 10/05/19 14 2:26PM BY DIANA NUNEZ MA, MARY CARMEN ON/ADDEN DUM Susan LICONAHilary [address] [facility] [address], [place], [address], [facility] [place] 6 15:45:51 Screenin g for malignan t neoplasm of cervix Completed 201101/16/2014 RECORDED 05/13/20 12 3:41PM BY PAOLA MENCHACA MA, MARY CARMEN ON/ADDEN DUM [facility] [address] [facility] [address], [place], [address], [facility] [place] 6 15:45:51 Cough 68975129 Completed 201301/16/2014 IMPRESSI ON: POSSIBLE PNEUMONI A WITH THE FOCAL RALES. IF SHE DOES NOT IMPROVE WITH THE ABX SHE WILL GET A CXR.; RECORDED 10/05/19 14 2:26PM BY DIANA NUNEZ MA, MARY CARMEN ON/ADDEN DUM BRODY Roberts [address] [facility] [address], [place], [address], [facility] [place] 4 11:48:33 Tobacco dependen ce syndrome 39221692 Active 2013 GABRI[address] [place], [facility] 6 09:24:07 Tobacco dependen ce syndrome 29195705 Completed 201301/16/2014 RECORDED 10/05/19 14 2:27PM BY DIANA NUNEZ MA, ANNOTATI ON/ADDEN DUM GABRIELA [place], [facility] 6 09:24:07 Diarrhea 70044724 Completed 201301/16/2014 RECORDED 10/05/19 14 2:25PM BY DIANA NUNEZ MA, ANNOTATI ON/ADDEN DUM Susan Apolinar GRISSOM [address] [facility] [address], [place], [address], [facility] [place] 6 15:45:51 Dysuria 80535738 Completed 201312/30/2016 RECORDED 10/05/19 14 2:30PM BY DIANA NUNEZ MA, OFFICE VISIT Peyman Healy MD [address] [facility] [address], [place], [address], [facility] [place] 7 10:24:17 Elevated blood-pr essure reading without diagnosi s of hyperten margaret 776996399 Active 2013 Diana martines [place] null, [facility] 7 11:51:58 Epigastr ic pain 72641636 Completed 201101/16/2014 IMPRESSI ON: PROBABLE GASTRITI S D/T RECENT NSAIDS AND PREDNISO NE TAPER, NO LONGER TAKING EITHER; RECORDED 05/13/20 12 3:41PM BY PAOLA MENCHACA MA, MARY CARMEN ON/ADDEN DUM Susan Apolinar GRISSOM [address] [address], [place], [address], [facility] [place] 6 15:45:51 Follow-u p encounte r Completed 201201/16/2014 RECORDED 08/31/19 13 1:39PM BY RHONDA PETERSEN MA, MARY CARMEN ON/ADDEN DUM Susan Apolinar GRISSOM [address] [facility] [address], [place], [address], [facility] [place] 6 15:45:51 Malaise and fatigue 112140992 Completed 201101/16/2014 IMPRESSI ON: PER PT REPORT WITH SIG INCREASE D STRESS LEVELS RECENTLY . SEES THERAPIS T WEEKLY, REC INCREASI NG ZOLOFT DOSE. CHANGED FROM 25- 50 MG.; RECORDED 05/13/20 12 3:41PM BY PAOLA MENCHACA MA, ANNOTATI ON/ADDEN DUM Susan Apolinar LICONA-C [address], [place], [address], [facility] [place] 6 15:45:51 Gastroes ophageal reflux disease 123596705 Active 2013 [facility] 09:[facility]:24 Headache 09372909 Completed 201301/16/2014 RECORDED 10/05/19 14 2:28PM BY DIANA NUNEZ MA, ANNOTATI ON/ADDEN DUM Susan Jiang PA-C [address], [place], [address], [facility] [place] 6 15:45:51 Glucose level outside referenc e range 067113581 Completed 201312/30/2016 Peyman Healy MD [address], [place], [address], [facility] [place] 7 10:23:38 Hyperlip idemia 01195043 Completed 201312/30/2016 Brady Sanchez [facility] [address] [facility] [address], [place], [address], [facility] [place] 2 14:05:28 Low back pain 383756389 Completed 201101/16/2014 RECORDED 05/13/20 12 3:41PM BY PAOLA MENCHACA MA, ANNOTATI ON/ADDEN DUM BRODY Roberts [address], [place], [address], [facility] [place] 2 10:36:13 Acute lymphade nitis 61830687 Completed 201301/16/2014 IMPRESSI ON: PT VERY ANXIOUS [...] 2:26PM BY DIANA NUNEZ MA, MARY CARMEN ON/ADD DUM Susan Jiang PA-C [address] [facility] [address], [place], [address], [facility] [place] 6 15:45:51 Administ ration of bacteria l and viral vaccine Completed 201001/16/2014 RECORDED 09/20/19 11 1:19PM BY BABITA ANDERSON PA-C, OFFICE VISIT Susan Jiang PA-C [address] [facility] [address], [place], [address], [facility] [place] 6 15:45:51 Psoriasi s 6304423 Active 2013 Diana martines [place] null, [facility] 6 09:24:04 Disorder of rotator cuff 043430914 Completed 201201/16/2014 IMPRESSI ON: SUSPECT SUPRASPI NATUS TENDON TEAR. 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 FURTHER F/U THROUGH [facility]. SHE WILL TAKE NSAID PRN AND ICE. MAY RETURN TO WORK.; RECORDED 08/31/19 13 1:39PM BY RHONDA PETERSEN MA, MARY CARMEN ON/ Susan Jiang PA-C [address] [facility] [address], [place], [address], [facility] [place] 6 15:45:51 Adult health examinat ion Completed 201101/16/2014 RECORDED 05/13/20 12 3:41PM BY PAOLA MENCHACA MA, MARY CARMEN ON/ Diana martines MA null, [facility] 6 09:23:31 Shoulder joint pain 925254782 Completed 201101/16/2014 STORY: R SIDED, X PAST TWO WEEKS WITHOUT HX OF TRAUMA OR INJURY RECENT OR PAST. WITH ASSOCIAT ED WEAKNESS , MINIMAL RESP TO NSAID. WILL CONTACT [facility] TO SEE IF THEY ARE ABLE TO SEE HER SOON, IF NOT WILL CHECK XRAYS WHILE AWAITING APPT.; RECORDED 05/13/20 12 3:41PM BY PAOLA MENCHACA MA, ANNOTATI ON/LUIS LICONA-C [address], [place], [address], [facility] [place] 6 15:45:51 Disorder of upper respirat ory system 421071138 Completed 201101/16/2014 RECORDED 05/13/20 12 3:41PM BY PAOLA MENCHACA MA, ANNOTATI ON/LUIS Jiang PA-C [address], [place], [address], [facility] [place] 6 15:45:51 Disorder of bursa of shoulder region 17936999 Active 2013 GABRIELA Coburn, [facility] 6 09:24:00 Temporom andibula r joint disorder 26207033 Active 2013 GABRIELA [place], [facility] 7 11:51:54 Acute upper respirat ory infectio n 45140411 Completed 201101/16/2014 IMPRESSI ON: 5 DAYS, NO FEVERS AND NO FOCAL SIGNS ON EXAM. LIKELY VIRAL, ADVISED RE REST, FLUIDS AND OTHER SX SUPPORT. CALL FOR WORSENIN G/PRN.; RECORDED 05/13/20 12 3:41PM BY PAOLA MENCHACA MA, ANNOTATI ON/LUIS Jiang PA-C [address], [place], [address], [facility] [place] 6 15:45:51 Vernal conjunct ivitis 548361502 Completed 201101/16/2014 RECORDED 05/13/20 12 3:41PM BY PAOLA MENCHACA MA, ANNOTATI ON/DILMAEN DUM Susan Jiang PA-C [address], [place], [address], [facility] [place] 6 15:45:51 Candidal vulvovag initis 23546608 Completed 201301/16/2014 IMPRESSI ON: TENDS TO GET YEAST INFECTIO NS WITH ABX; RECORDED 10/05/19 14 2:26PM BY DIANA NUNEZ MA, MARY CARMEN ON/ADDEN DUM Susan Jiang PA-C [address], [place], [address], [facility] [place] 6 15:45:51 Acute pharyngi tis 412227564 Completed 201102/08/2014 RECORDED 05/13/20 12 3:41PM BY PAOLA MENCHACA MA, MARY CARMEN ON/ADDEN GEORGE Healy MD [address], [place], [address], [facility] 7 10:24:09 Backache 725886455 Completed 201302/08/2014 IMPRESSI ON: > 1 WEEK [...] [address], [place], [address], [facility] [place] 6 15:45:51 Bronchit is 46173452 Completed 201202/08/2014 RECORDED 07/28/19 13 1:45AM BY PAOLA MENHCACA MA, MARY CARMEN ON/ADDEN DUM Susan Jiang PA-C [address], [place], [address], [facility] [place] 6 15:45:51 Acute bronchit is 78854072 Completed 201302/08/2014 IMPRESSI ON: LIKELY MOSTLY VIRAL SXS, HOWEVER DUE TO SMOKING STATUS AND RISK OF BACTERIA L BRONCHIT IS OR PNA TO TX WITH ABX. REST, FLUIDS, COUGH MED AT NIGHT PRN. CALL FOR WORSENIN G/PRN.; RECORDED 10/05/19 14 2:26PM BY DIANA NUNEZ MA, MARY CARMEN ON/ADDEN GEORGE LICONA-C [address], [place], [address], [facility] [place] 6 15:45:51 Screenin g for malignan t neoplasm of cervix Completed 201102/08/2014 RECORDED 05/13/20 12 3:41PM BY PAOLA MENCHACA MA, MARY CARMEN ON/Poached JobsEN GEORGE Susanyimi LICONA-C [address], [place], [address], [facility] [place] 6 15:45:51 Cough 86212837 Completed 201302/08/2014 IMPRESSI ON: PRODUCTI VE COUGH X 10D, + TOBACCO, WILL TX, ADVISE TO STOP SMOKING, RTC IF PERSISTE NT OR WORSENIN G SYMPTOMS .; RECORDED 10/05/19 14 2:26PM BY DIANA NUNEZ MA, MARY CARMEN ON/ADDEN BRODY Ferro [address], [place], [address], [facility] [place] 4 11:48:33 Diarrhea 06778081 Completed 201302/08/2014 RECORDED 10/05/19 14 2:25PM BY DIANA NUNEZ MA, MARY CARMEN ON/ADDEN GEORGE LCIONA-C [address], [place], [address], [facility] [place] 6 15:45:51 Epigastr ic pain 94958078 Completed 201102/08/2014 IMPRESSI ON: PROBABLE GASTRITI S D/T RECENT NSAIDS AND PREDNISO NE TAPER, NO LONGER TAKING EITHER; RECORDED 05/13/20 12 3:41PM BY PAOLA MENCHACA MA, ANNOTATI ON/ADDEN DUM Susan Apolinar PA-C [address], [place], [address], [facility] [place] 6 15:45:51 Follow-u p encounte r Completed 201202/08/2014 RECORDED 08/31/19 13 1:39PM BY RHONDA PETERSEN MA, MARY CARMEN ON/ADDEN DUM Susan Apolinar PA-C [address], [place], [address], [facility] [place] 6 15:45:51 Malaise and fatigue 734248360 Completed 201102/08/2014 IMPRESSI ON: PER PT REPORT WITH SIG INCREASE D STRESS LEVELS RECENTLY . SEES THERAPIS T WEEKLY, REC INCREASI NG ZOLOFT DOSE. CHANGED FROM 25- 50 MG.; RECORDED 05/13/20 12 3:41PM BY PAOLA MENCHACA MA, MARY CARMEN ON/ADDEN DUM Susan LICONA-C [address] [facility] [address], [place], [address], [facility] [place] 6 15:45:51 Headache 18343048 Completed 201302/08/2014 RECORDED 10/05/19 14 2:28PM BY DIANA NUNEZ MA, MARY CARMEN ON/ADDEN DUM Susan Apolinar PA-C [address], [place], [address], [facility] [place] 6 15:45:51 Low back pain 389218244 Completed 201102/08/2014 RECORDED 05/13/20 12 3:41PM BY PAOLA MENCHACA MA, ANNOTATI ON/ADDEN DUM BRODY Roberts [address], [place], [address], [facility] [place] 2 10:36:13 Acute lymphade nitis 39008602 Completed 201302/08/2014 IMPRESSI ON: PT VERY ANXIOUS [...] BY DIANA NUNEZ MA, MARY CARMEN ON/LUIS DUM Susan Jiang PA-C [address] [facility] [address], [place], [address], [facility] [place] 6 15:45:51 Administ ration of bacteria l and viral vaccine Completed 201002/08/2014 RECORDED 09/20/19 11 1:19PM BY BABITA ANDERSON PA-C, OFFICE VISIT Susan Jiang PA-C [address] [facility] [address], [place], [address], [facility] [place] 6 15:45:51 Disorder of rotator cuff 449448606 Completed 201202/08/2014 IMPRESSI ON: SUSPECT SUPRASPI NATUS TENDON TEAR. 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 FURTHER F/U THROUGH [facility]. SHE WILL TAKE NSAID PRN AND ICE. MAY RETURN TO WORK.; RECORDED 08/31/19 13 1:39PM BY RHONDA PETERSEN MA, MARY CARMEN ON/LUIS DUM Susan Jiang PA-C [address] [facility] [address], [place], [address], [facility] [place] 6 15:45:51 Shoulder joint pain 532456409 Completed 201102/08/2014 STORY: R SIDED, X PAST TWO WEEKS WITHOUT HX OF TRAUMA OR INJURY RECENT OR PAST. WITH ASSOCIAT ED WEAKNESS , MINIMAL RESP TO NSAID. WILL CONTACT [facility] TO SEE IF THEY ARE ABLE TO SEE HER SOON, IF NOT WILL CHECK XRAYS WHILE AWAITING APPT.; RECORDED 05/13/20 12 3:41PM BY PAOLA MENCHACA MA, MARY CARMEN ON/ADDEN DUM Susan Jiang [employer] [address] [facility] [address], [place], [address], [facility] [place] 6 15:45:51 Disorder of upper respirat ory system 865087590 Completed 201102/08/2014 RECORDED 05/13/20 12 3:41PM BY PAOLA MENCHACA MA, MARY CARMEN ON/ADDMOHAN DUM Susan Jiang MS-C [address] [facility] [address], [place], [address], [facility] [place] 6 15:45:51 Acute upper respirat ory infectio n 87942869 Completed 201102/08/2014 IMPRESSI ON: 5 DAYS, NO FEVERS AND NO FOCAL SIGNS ON EXAM. LIKELY VIRAL, ADVISED RE REST, FLUIDS AND OTHER SX SUPPORT. CALL FOR WORSENIN G/PRN.; RECORDED 05/13/20 12 3:41PM BY PAOLA MENCHACA MA, ANNOTATI ON/LUIS Ruffinden MS-C [address] [facility] [address], [place], [address], [facility] [place] 6 15:45:51 Vernal conjunct ivitis 311420951 Completed 201102/08/2014 RECORDED 05/13/20 12 3:41PM BY PAOLA MENCHACA MA, MARY CARMEN ON/ADDEN DUM Susan RuffinMozaik Media-C [address] [facility] [address], [place], [address], [facility] [place] 6 15:45:51 Candidal vulvovag initis 61776971 Completed 201302/08/2014 IMPRESSI ON: TENDS TO GET YEAST INFECTIO NS WITH ABX; RECORDED 10/05/19 14 2:26PM BY DIANA NUNEZ MA, MARY CARMEN ON/LUIS LICONA-C [address], [place], [address], [facility] [place] 6 15:45:51 Acute pharyngi tis 002471003 Completed 201102/09/2014 RECORDED 05/13/20 12 3:41PM BY PAOLA MENCHACA MA, ISAIAHATI ON/ADDMOHAN Healy MD [address] [facility] [address], [place], [address], [facility] [place] 7 10:24:09 Backache 386736151 Completed 201302/09/2014 IMPRESSI ON: > 1 WEEK OF WORSENIN G BACK PAIN, UNABLE TO STAND UPRIGHT, LEGS GIVING OUT. PAIN NOW RADIATIN G INTO BUTTOCKS AND ANTERIOR THIGHS. MRI REVEALED SCHMORL' S NODES, OTHERWIS E NEG. TO PSS FOR FURTHER EVAL.; RECORDED 10/05/19 14 2:28PM BY DIANA NUNEZ MA, MARY CARMEN ON/LUIS LICONA-C [address] [facility] [address], [place], [address], [facility] [place] 6 15:45:51 Bronchit is [id number] Completed 201202/09/2014 RECORDED 07/28/19 13 1:45AM BY PAOLA MENCHACA MA, MARY CARMEN ON/LUIS LICONA-C [address] [facility] [address], [place], [address], [facility] [place] 6 15:45:51 Acute bronchit is 21202638 Completed 201302/09/2014 IMPRESSI ON: LIKELY MOSTLY VIRAL SXS, HOWEVER DUE TO SMOKING STATUS AND RISK OF BACTERIA L BRONCHIT IS OR PNA TO TX WITH ABX. REST, FLUIDS, COUGH MED AT NIGHT PRN. CALL FOR WORSENIN G/PRN.; RECORDED 10/05/19 14 2:26PM BY DIANA NUNEZ MA, ANNOTATI ON/ADDEN DUM Susan LICONA-C [address] [facility] [address], [place], [address], [facility] [place] 6 15:45:51 Screenin g for malignan t neoplasm of cervix Completed 201102/09/2014 RECORDED 05/13/20 12 3:41PM BY PAOLA MENCHACA MA, ANNOTCHARLENE ON/ADDEN DUM Susan LICONA-C [address] [facility] [address], [place], [address], [facility] [place] 6 15:45:51 Cough [id number] Completed 201302/09/2014 IMPRESSI ON: PRODUCTI VE COUGH X 10D, + TOBACCO, WILL TX, ADVISE TO STOP SMOKING, RTC IF PERSISTE NT OR WORSENIN G SYMPTOMS .; RECORDED 10/05/19 14 2:26PM BY DIANA NUNEZ MA, MARY CARMEN ON/ADDEN DUM BRODY Roberts [address] [facility] [address], [place], [address], [facility] [place] 4 11:48:33 Diarrhea 91969961 Completed 201302/09/2014 RECORDED 10/05/19 14 2:25PM BY DIANA NUNEZ MA, MARY CARMEN ON/ADDEN DUM Susan RHODESC [address] [facility] [address], [place], [address], [facility] [place] 6 15:45:51 Epigastr ic pain 71784683 Completed 201102/09/2014 IMPRESSI ON: PROBABLE GASTRITI S D/T RECENT NSAIDS AND PREDNISO NE TAPER, NO LONGER TAKING EITHER; RECORDED 05/13/20 12 3:41PM BY PAOLA MENCHACA MA, ANNOTATI ON/ADDEN DUM Susan RHODESC [address] [facility] [address], [place], [address], [facility] [place] 6 15:45:51 Follow-u p encounte r Completed 201202/09/2014 RECORDED 08/31/19 13 1:39PM BY RHONDA PETERSEN MA, MARY CARMEN ON/ADDEN GEORGE RHODESC [address] [facility] [address], [place], [address], [facility] [place] 6 15:45:51 Malaise and fatigue 850879978 Completed 201102/09/2014 IMPRESSI ON: PER PT REPORT WITH SIG INCREASE D STRESS LEVELS RECENTLY . SEES THERAPIS T WEEKLY, REC INCREASI NG ZOLOFT DOSE. CHANGED FROM 25- 50 MG.; RECORDED 05/13/20 12 3:41PM BY PAOLA MENCHACA MA, MARY CARMEN ON/LUIS RHODESC [address] [facility] [address], [place], [address], [facility] [place] 6 15:45:51 Headache 59221623 Completed 201302/09/2014 RECORDED 10/05/19 14 2:28PM BY DIANA NUNEZ MA, MARY CARMEN ON/ADDEN GEORGE RHODESC [address] [facility] [address], [place], [address], [facility] [place] 6 15:45:51 Low back pain 381710684 Completed 201102/09/2014 RECORDED 05/13/20 12 3:41PM BY PAOLA MENCHACA MA, ISAIAHATI ON/ADDEN DUM BRODY Roberts [address] [facility] [address], [place], [address], [facility] [place] 2 10:36:13 Acute lymphade nitis 02044257 Completed 201302/09/2014 IMPRESSI ON: PT VERY ANXIOUS [...] 2:26PM BY DIANA NUNEZ MA, MARY CARMEN ON/ADDMOHAN DUM Susan Jiang PA-C [address] [facility] [address], [place], [address], [facility] [place] 6 15:45:51 Administ ration of bacteria l and viral vaccine Completed 201002/09/2014 RECORDED 09/20/19 11 1:19PM BY BABITA ANDERSON PA-C, OFFICE VISIT Susanyimi Jiang PA-C [address] [facility] [address], [place], [address], [facility] [place] 6 15:45:51 Disorder of rotator cuff 413524696 Completed 201202/09/2014 IMPRESSI ON: SUSPECT SUPRASPI NATUS TENDON TEAR. 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 FURTHER F/U THROUGH [employer]. SHE WILL TAKE NSAID PRN AND ICE. MAY RETURN TO WORK.; RECORDED 08/31/19 13 1:39PM BY RHONDA PETERSEN MA, MARY CARMEN ON/LUIS Jiang PA-C [address] [facility] [address], [place], [address], [facility] [place] 6 15:45:51 Shoulder joint pain 731485686 Completed 201102/09/2014 STORY: R SIDED, X PAST TWO WEEKS WITHOUT HX OF TRAUMA OR INJURY RECENT OR PAST. WITH ASSOCIAT ED WEAKNESS , MINIMAL RESP TO NSAID. WILL CONTACT [facility] TO SEE IF THEY ARE ABLE TO SEE HER SOON, IF NOT WILL CHECK XRAYS WHILE AWAITING APPT.; RECORDED 05/13/20 12 3:41PM BY PAOLA MENCHACA MA, MARY CARMEN ON/ADDMOHAN DUM Susan Jiang PA-C [address] [facility] [address], [place], [address], [facility] [place] 6 15:45:51 Disorder of upper respirat ory system 412921305 Completed 201102/09/2014 RECORDED 05/13/20 12 3:41PM BY PAOLA MENCHACA MA, MARY CARMEN ON/ADDEN DUM Susan [employer]-C [address], [place], [address], [facility] [place] 6 15:45:51 Acute upper respirat ory infectio n 16659324 Completed 201102/09/2014 IMPRESSI ON: 5 DAYS, NO FEVERS AND NO FOCAL SIGNS ON EXAM. LIKELY VIRAL, ADVISED RE REST, FLUIDS AND OTHER SX SUPPORT. CALL FOR WORSENIN G/PRN.; RECORDED 05/13/20 12 3:41PM BY PAOLA MENCHACA MA, ISAIAHATI ON/ADDEN DUM Susan [employer] [address], [place], [address], [facility] [place] 6 15:45:51 Vernal conjunct ivitis 324890171 Completed 201102/09/2014 RECORDED 05/13/20 12 3:41PM BY PAOLA MENCHACA MA, MARY CARMEN ON/ADDEN DUM Susan [employer] [address], [place], [address], [facility] [place] 6 15:45:51 Candidal vulvovag initis 81925795 Completed 201302/09/2014 IMPRESSI ON: TENDS TO GET YEAST INFECTIO NS WITH ABX; RECORDED 10/05/19 14 2:26PM BY DIANA NUNEZ MA, MARY CARMEN ON/ADDEN DUM Susan Jiang PA-C [address], [place], [address], [facility] [place] 6 15:45:51 Wheezing symptom 534586373 Completed 12/30/2016 Peyman Healy MD [address], [place], [address], [facility] [place] 7 10:24:02 Acute sinusiti s 16928432 Completed 12/30/2016 Peyman Healy MD [address], [place], [address], [facility] [place] 7 10:23:40 Acute asthma 934606637 Completed 12/30/2016 Peyman Healy MD [address], [place], [address], [facility] [place] 7 10:24:04 Acute allergic reaction 025909758 Completed 12/30/2016 Peyman Healy MD [address], [place], [place], [address], [facility] [place] 7 10:23:59 Fatigue 56793589 Completed 12/30/2016 Brady Sanchez [facility] [address], [place], [place], [address], [facility] [place] 2 14:05:52 Irritabl e bowel syndrome 05562421 Active Susan Jiang PA-C [address], [place], [address], [facility] [place] 6 15:45:51 Acute pharyngi tis 001710048 Completed 12/30/2016 Peyman Healy MD [address], [place], [address], [facility] [place] 7 10:24:09 Pain in calf 397222694 Completed 12/30/2016 Peyman Healy MD [address], [place], [address], [facility] [place] 7 10:24:07 Synovial cyst of knee 966003468 Completed 12/30/2016 Peyman Healy MD [address], [place], [address], [facility] [place] 7 10:23:54 Lumbar sprain 824705196 Completed 12/30/2016 Peyman Healy MD [address], [place], [address], [facility] [place] 7 10:23:49 Sprain pelvic ligament 294764708 Completed 12/30/2016 Peyman Healy MD [address], [place], [address], [facility] [place] 7 10:23:46 Inflamma tion of sacroili ac joint 18554691 Completed 12/30/2016 Peyman Healy MD [address], [place], [address], [facility] [place] 7 10:24:21 Anemia of pregnanc y 33284897 Completed 201512/30/2016 Peymna Healy MD [address], [place], [address], [facility] [place] 7 10:23:35 Generali zed anxiety disorder 83442730 Active 2016 GABRIELA Coburn, 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 no other organs. nephrect sandoval 09/2019 Removal Reason: radical nephrect sandoval 09/[address] [facility] 3 15:23:27 Neoplasm of left kidney 34383808204 045194 Completed 202004/27/2023 Removal Reason: radical nephrect sandoval 09/[address] 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 48423883543 282593 Active 2021 Brady Sanchez, [facility] [address] [facility] [address], [place], [address], [facility] [place] 2 13:54:13 Hyperlip idemia 53215902 Active 2021 Brady Sanchez, [facility] [address] [facility] [address], [place], [address], [facility] [place] 2 14:05:27 Fatigue 27069955 Active 2021 Brady Sanchez, [facility] [address] [facility] [address], [place], [address], [facility] [place] 2 14:05:52 Impaired fasting glycemia 408160133 Active 2021 Brady Sanchez, [facility] [address] [facility] [address], [place], [address], [facility] [place] 2 14:05:59 Pain of left hip joint 55022521158 9100 Active 2021 Brady Sanchez, [facility] [address] [facility] [address], [place], [address], [facility] [place] 2 11:29:28 Obesity 158315144 Active 2022 Lynda ortega, [facility] 3 15:21:38 Cough 38704566 Active 2023 IMPRESSI ON: PRODUCTI VE COUGH X 10D, + TOBACCO, WILL TX, ADVISE TO STOP SMOKING, RTC IF PERSISTE NT OR WORSENIN G SYMPTOMS .; RECORDED 10/05/19 14 2:26PM BY DIANA NUNEZ MA, ANNOTATI ON/ADDEN DUM Brady Sanchez, [facility] [address], [place], [address], [facility] [place] 4 11:48:33 COVID-19 691352931 Active 2023 Brady Sanchez, [facility] [address], [place], [address], [facility] [place] 4 12:11:32 Fever 796235387 Active 2023 Brady Sanchez, [facility] [address], [place], [address], [facility] [place] 4 12:11:36 Vitamin D deficien cy 72713580 Active 2023 Brady Sanchez, [facility] [address] [facility] [address], [place], [address], [facility] [place] 4 15:27:42 Acute right otitis media 099332896 Active 2024 Brady Sanchez, [facility] [address] [facility] [address], [place], [address], [facility] [place] 5 11:21:54 Problem Notes None recorded. Procedures Surgical History Date Name Laterality Status Provider Name and Address Organization Details Recorded Time 08/30/19 24 Most Recent Mammogram completed Emili Martinez [facility] 08/31/2023 10:24:02 07/14/19 23 Mammogram Screening completed Danielle Rodriguez [facility] 07/14/2022 16:24:36 05/05/20 22 fasciotomy of foot completed BRODY Roberts [address], [place], [address], [facility] [place] 04/27/2023 09:18:39 09/07/19 20 radical nephrectomy completed Greta Glasgow [facility] 09/11/2019 15:28:04 09/07/19 20 Cancer Surgery completed Sherlyn Brown MA [facility] 03/27/2021 08:40:34 07/14/19 17 Date of Last Colonoscopy completed Diana slaughter MA [facility] 12/30/2016 10:13:20 07/14/19 17 Colonoscopy completed BRODY Roberts [address], [place], [address], [facility] [place] 02/14/2019 15:53:00 02/11/20 07 delivery completed Diana slaughter MA [facility] 02/14/2019 15:32:01 01/14/20 04 Caesarean Section completed Diana slaughter MA [facility] 02/14/2019 15:31:51 09/03/19 00 Tonsillectomy completed Sherlyn Brown MA [facility] 03/27/2021 08:40:34 Tubal Ligation completed Diana slaughter MA [facility] 11/21/2014 14:01:10 Tonsillectomy completed Sherlyn Brown MA [facility] 03/27/2021 08:40:34 Imaging Results Imaging Date Name Status LastModified by Organization Details LastModified Time 04/27/2023 electrocardiogram completed [email or web address] In-Offi ce Order Internal Use Only DO Not Attach Compendium DO Not Attach Compendium, Do Not Delete/merge, [id number] 04/27/2023 09:49:11 04/27/2023 electrocardiogram completed [email or web address] In-Offi ce Order Internal Use Only DO Not Attach Compendium DO Not Attach Compendium, Do Not Delete/merge, [id number] 04/27/2023 09:39:42 07/13/2023 XR, chest completed [facility] (Imaging) [address] [place], [address], 07/20/2023 08:53:36 08/24/2023 US, doppler, venous completed [email or web address] [facility] (Medical Records) [address] [place], [address], 08/25/2023 08:42:01 08/30/2023 MAMMO, screening, digital, bilateral completed [address] (Outpt Imaging) [address] [place], [address], 08/31/2023 10:24:05 11/02/2023 CT, abdomen + pelvis, w/ contrast completed [facility] [address] [place], [address], 11/03/2023 13:36:14 12/17/2023 XR, chest completed [facility] (Medical Records) [address] [place], [address], 12/17/2023 14:14:49 12/17/2023 CT, abdomen + pelvis, w/o contrast completed [address] (Medical Records) [address] [place], [address], 12/20/2023 08:52:21 Procedure Notes None recorded. Medical Equipment None Reported. Allergies Allergen ID Allergen Name Allergen Category Reaction Reaction Severity Criticality Documentation Date Start Date Code Code System Note Provider Name and Address Organization Details Recorded Time amoxicill in medicatio n other Not available Not available 10/18/2014 723 RxNorm cause s yeast infec tion in the past GABRIELA Coburn MA - [facility] 5 12:49:17 2838 Keflex medicatio n itching Not available Not available 01/16/20142013 57982 7 RxNorm Diana martines MA null, [facility] 5 12:49:17 2839 Product containin g penicilli n and antibioti c (product) medicatio n Not available Not available Not available 01/16/20142013 73925 05 SNOMED REACT ION: AMOX, CAUSE S YEAST INFEC TIONS ; COMME NT: RECOR DED 10/04 2:30P M BY SRINIVAS THOMAS MA, OFFIC E VISIT ; Peyman Healy MD [address] [facility] [address], [place], [address], [facility] [place] 5 16:56:28 19924 Non-stero idal anti-infl ammatory agent (product) medicatio n other moderate low 04/21/2022 26188 005 SNOMED 1 BRODY Schrader [address] [facility] [address], [place], [address], [facility] [place] 2 13:55:13 Medications Name Sig Start Date [...] completed Not Available Not Available Not Available clarithro mycin 500 mg tablet Take 1 tablet every 12 hours by oral route as directed for 10 days. active Not Available Not Available No t Available ondansetr on HCl 4 mg tablet [...] 08/30 completed RECORDED 08/30/19 14 2:13PM BY PAOLA MENCHACA MA, OFFICE VISIT; Not Available Not Available [...] 09/30 completed RECORDED 08/30/19 14 3:03PM BY PAOLA MENCHACA MA, MEDICATI ON AUTO-PACO CTIVATIO N; Not [...] 05/13 completed RECORDED 05/13/20 12 3:43PM BY PAOLA MENCHACA MA, OFFICE VISIT; Not Available Not Available Not Available ursodiol 300 mg capsule TAKE 3 CAPSULES (900 MG TOTAL) BY MOUTH 1 (ONE) TIME EACH DAY. active Not Available Not Available No t [...] Updated DateTime 3 158.75 cm 34 kg/m2 04813.9 6 g 64.99 /min 99 % 99 % 98.4 [degF] 136 mm[Hg] 84 mm[Hg] Estefania Anguiano [facility] [place] 3 10:32:43 Date Recorded Body height Body mass index (BMI) Body weight Heart rate Oxygen saturation Oxygen saturation in Arterial blood by Pulse oximetry Body temperature Systolic blood pressure Diastolic blood pressure Provider Name and Address Organization Details Last Updated DateTime 3 158.75 cm 34 kg/m2 19896.9 6 g 74 /min 98 % 98 % 98.5 [degF] 152 mm[Hg] 91 mm[Hg] Maru Sewell [facility] 3 08:55:13 Date Recorded Systolic blood pressure Diastolic blood pressure Provider Name and Address Organization Details Last Updated DateTime 04/27/2023 136 mm[Hg] 80 mm[Hg] BRODY Roberts [address] [address], [place], [address], [facility] 04/27/2023 09:27:54 Date Recorded Body height Body mass index (BMI) Body weight Body temperature Oxygen saturation Oxygen saturation in Arterial blood by Pulse oximetry Heart rate Systolic blood pressure Diastolic blood pressure Provider Name and Address Organization Details Last Updated DateTime 4 158.75 cm 34.6 kg/m2 51243.7 4 g 98.4 [degF] 98 % 98 % 85 /min 127 mm[Hg] 85 mm[Hg] Sydnie Flores MA [facility] 4 11:28:21 Date Recorded Body height Body mass index (BMI) Body weight Heart rate Oxygen saturation Oxygen saturation in Arterial blood by Pulse oximetry Body temperature Systolic blood pressure Diastolic blood pressure Provider Name and Address Organization Details Last Updated DateTime 4 158.75 cm 34 kg/m2 78955.9 6 g 72 /min 99 % 99 % 98.2 [degF] 147 mm[Hg] 79 mm[Hg] Maru Sewell MA [facility] 4 15:21:08 Date Recorded Systolic blood pressure Diastolic blood pressure Provider Name and Address Organization Details Last Updated DateTime 05/02/2024 120 mm[Hg] 66 mm[Hg] BRODY Roberts [address] [facility] [address] [place] [address], [address], [facility] 05/02/2024 16:01:22 Date Recorded Body height Body mass index (BMI) Body weight Heart rate Oxygen saturation Oxygen saturation in Arterial blood by Pulse oximetry Body temperature Systolic blood pressure Diastolic blood pressure Provider Name and Address Organization Details Last Updated DateTime 5 158.75 cm 33.7 kg/m2 35374.7 7 g 62 /min 98 % 98 % 99.1 [degF] 158 mm[Hg] 92 mm[Hg] Maru Sewell [facility] 5 10:49:03 Date Recorded Systolic blood pressure Diastolic blood pressure Provider Name and Address Organization Details Last Updated DateTime 07/06/2024 110 mm[Hg] 60 mm[Hg] BRODY Roberts [address] [place] [address], [address], [facility] 07/06/2024 11:27:04 Social History Question Answer Notes LastModified by Organizat ion Details LastModified Time Tobacco Smoking Status Former Smoker pt quit 09/2019 Sherlyn Brown MA [facility] 03/26/2020 10:39:09 Do You Have An Advance [...] not available 04/23/2022 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 1-5yearssincel marinocimikhail [email or web address] Information not available 03/27/2021 Live Alone Or [...] Or Greater Than 100 Degrees Fahrenheit? No [email or web address] Information not available 03/26/2020 Are You Or Anyone In Your Household A Health Care Provider Or Emergency Responder? Yes [email or web address] Information not available 03/26/2020 To The Best Of Your Knowledge Have You Been In Close Proximity To Any Individual Who Tested Positive For COVID-19? No Information not available 03/26/2020 Have You Recently Traveled To A COVID-19 High Risk Area Or Gathering In The Last 10 Days? No [email or web address] Information not available 07/23/2020 What Was The Date Of Your Most Recent Tobacco Screening? 05/02/2024 [email or web address] Information not available 05/02/2024 How Many Children Do You Have? 2 Gabriel And Jas Information not available 12/30/2016 Do You Use Your Seat Belt Or Car Seat Routinely? Yes Information not available 03/27/2021 Seat Belts Used Routinely Yes Information not available 04/23/2022 Are You Sexually Active? No Information not available 12/30/2016 Smoke Alarm In Home Yes Information not available 04/23/2022 Do You Have Smoke And Carbon Monoxide Detectors In Your Home? Yes [email or web address] Information not available 03/27/2021 At What Age Did You Start Smoking Tobacco? 15 Information not available 11/21/2014 Are You Passively Exposed To Smoke? No Information not available 06/05/2015 Do You Or Have You Ever Used Smokeless Tobacco? Never Used Smokeless Tobacco Information not available 02/14/2019 How Much Tobacco Do You Smoke? No [email or web address] Information not available 03/26/2020 Do You Use [...] Organization Details LastModified Time Father Diabetes mellitus [email or web address] Not available 13:56:24 Father Heart disease [email or web address] Not available 13:56:24 Father Essential hypertension Not available 10:40:59 Father Malignant tumor of lung [email or web address] Not available 03/27 08:40:16 Father Kidney disease [email or web address] Not available 03/27 08:40:16 Mother Malignant neoplasm of uterus molar pregna ncy- hyster ectomy Not available 04/23/2022 10:40:59 Mother Opioid dependence Not available 04/23 10:40:59 Mother Substance abuse [email or web address] Not available 03/27 08:40:16 Mother Seizure disorder [email or web address] Not available 03/27 08:40:16 Mother Osteoporosis [email or web address] Not vasile ilable 03/27/2021 08:40:16 Mother Disorder of thyroid gland Not available 2021 10:40:59 Brother Essential hypertension 45 possib ly Not available 04/23/2022 10:40:59 Brother Alcohol abuse [email or web address] Not available 2017 15:39:14 Brother Depressive disorder [email or web address] Not available 03/27 08:40:16 Maternal Grandfather Opioid dependence Not available 04/23 10:40:59 Unspecified Relation Substance abuse Not available 03/27 08:40:16 Son Allergy Not available 1 10:40:59 Medical History Condition Response Coronary Artery Disease N Gout N Other N Blood Diseases N Kidney Stones N Hyperthyroidism N Breast Cancer N mrsa exposure N Lung Disease N COPD N Depression N Hypothyroidism N Defects or Inherited Disease N Developmental or Behavioral Disorders N Breast Problem N Anesthesia Complications Y Headaches/Migraines N Anxiety Disorder Y Varicose Veins N Muscle, Joint, or Bone Problems N Obesity N Vision or Eye Problems N Arthritis N Head Injury/Concussion N Polyps N Infertility N Mental Disorder N Congenital Anomalies N Acid Reflux (GERD) Y Cancer Y Stroke N ADHD N Endometriosis N High Cholesterol N Liver Disease Y Fibromyalgia N Headaches N Kidney Disease N Heart Problems N [...] trivalent, preservative 6 completed Diana Swain MA [facility] 12/30/2016 10:11:22 Influenza, split virus, quadrivalent, preservative 8 completed Paola Menchaca MA [facility] 09/02/2018 10:03:42 Influenza, split virus, quadrivalent, preservative 9 completed Sydnie Flores MA [facility] 06/14/2019 09:27:56 COVID-19, mRNA, LNP-S, PF, 100 mcg/0.5mL dose or 50 mcg/0.25mL dose 0 [facility] 10:18:38 Influenza, split virus, quadrivalent, PF 1 completed GABRIELA Herbert, [facility] 09/12/2021 10:18:38 COVID-19, mRNA, LNP-S, PF, 100 mcg/0.5mL dose or 50 mcg/0.25mL dose 1 completed GABRIELA Herbert, [facility] 09/12/2021 10:18:38 Influenza, split virus, quadrivalent, PF 7 completed GABRIELA Herbert, [facility] 09/12/2021 10:18:39 Influenza, split virus, trivalent, preservative 5 completed GABRIELA Valadez, [facility] 12/24/2021 10:23:35 Influenza, split virus, quadrivalent, PF 3 completed GABRIELA Valadez, [facility] 07/13/2023 11:16:35 Tdap 1 completed Not Available [facility] 01/16/2014 13:38:10 Influenza, split virus, quadrivalent, PF 0 completed GABRIELA Waller, [facility] 03/26/2020 10:48:58 Tdap 1 completed GABRIELA Carrizales, [facility] 03/27/2021 10:06:49 Influenza, split virus, quadrivalent, PF 2 completed [facility] [address], [address], [facility] [place] 04/23/2022 11:29:33 Past Encounters Encounter ID Performer Location Encounter Start Date Encounter Closed Date Diagnosis/Indication Diagnosis SNOMED-CT Code Diagnosis ICD10 Code Diagnosis Note [id number] [facility] [facility] [address] [facility] [place] [address] 05/07/2009 00:00:00 [id number] [employer] [facility] [address] [facility] [address] [place] [address] 04/03/2010 00:00:00 [id number] 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 [address],[place] [address] [place] [address] 04/30/2010 00:00:00 [id number] 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 [address],[place] [address] [place] [address] 08/22/2010 00:00:00 [id number] 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 [address],[place] [address] [place] [address] 09/19/2010 00:00:00 [id number] 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 [address] [facility] [address],[place] [address] [place] [address] 11/17/2010 00:00:00 [id number] 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 [address] [facility] [address],[place] [address] [place] [address] 06/02/2011 00:00:00 [id number] 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 [address] [facility] [address],[place] [address] [place] [address] 09/15/2011 00:00:00 [id number] 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 [address] [facility],[place] [address] [place] [address] 10/29/2011 00:00:00 [id number] 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 [address] [facility] [address],[place] [address] [place] [address] 11/11/2011 00:00:00 [id number] 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 [address] [facility],[place] [address] [place] [address] 05/13/2012 00:00:00 [id number] 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 [address] [facility],[place] [address] [place] [address] 08/31/2012 00:00:00 [id number] 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 [address] [facility] [address],[place] [address] [place] [address] 02/07/2013 00:00:00 [id number] 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 [address] [facility] [address] [place] [address] 04/12/2013 00:00:00 [id number] 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 [address] [facility],[place] [address] [place] [address] 08/30/2013 00:00:00 [id number] 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 [address] [facility] [address] [place] [address] 10/04/2013 00:00:00 [id number] Diana thomas MA Main Office [address] [facility] [address] [place] [address] 03/27/2014 09:46:56 03/27/2014 10:49:27 Wheezing symptom 033356499 Tobacco de pendence syndrome 13442239 [id number] Carol Melo GABRIELA Main Office [address] [facility] [address] [place] [address] 09/14/2014 14:46:39 09/14/2014 15:17:09 Acute sinusitis 22043563 Tobacco de pendence syndrome 00201353 [id number] Main Office [address] [address] [place] [address] 10/18/2014 12:40:42 10/18/2014 13:27:05 Acute asthma 884972070 Acute zhao rgic reaction 603807873 Tobacco de pendence syndrome 42090078 [id number] Main Office [address] [facility] [address] [place] [address] 11/21/2014 13:28:44 11/21/2014 14:47:30 Adult health examination 971469427 Hyperlipidemia 28383844 Fatigue 63060742 Tobacco de pendence syndrome 74660972 Irritable bowel syndrome 00876824 Screening for malignant neoplasm of breast 494873228 Screening for malignant neoplasm of cervix 960522093 Body mass index 25-29 - overweight 739511240 [id number] Isaac Masters Main Office [address] [facility] [address] [place] [address] 12/29/2014 09:25:24 12/29/2014 09:50:58 Acute pharyngitis 973678212 probable viral infection; no role for abx. Continue with symptomati c treatment. [id number] Peyman Healy MD Main Office [address] [facility] [address] [place] [address] 04/24/2015 13:09:18 04/24/2015 15:20:58 Acute sinusitis 66362514 J01.90 Anxiety state 564158978 F41.1 [id number] Peyman Healy MD Main Office [address] [address] [place] [address] 06/05/2015 14:02:13 06/05/2015 15:35:44 Anxiety state 694045712 F41.1 Pain in calf 817583003 M 79.669 [id number] Peyman Healy MD Main Office [address] [address] [place] [address] 07/23/2015 10:47:52 07/23/2015 12:10:04 Lumbar sprain 004691297 S33.9XXA L. lumbar sparin acute. Can not tolerate NSAIDs. Will start Prednisone taper , Flexeril at night only and Tramadil for pain. Moist heat applicatio ns, gently back stretches. Stay back from work for few days. Sprain pel elana ligament 364973779 S33.9XXA [id number] Peyman Healy MD Main Office [address] [address] [place] [address] 12/25/2015 13:17:42 12/25/2015 14:58:37 Anxiety state 658705951 F41.1 Tobacco de pendence syndrome 37189772 F17.290 Reviewed motivation s for smoking cessation. Advised about benefits of stopping smoking. Hyperlipidemia 95485280 E78.5 Adult heal th examination 973730129 Z00.00 Fatigue 93873566 R53.83 Body mass index 25-29 - overweight 634826004 Z68.29 Inflammati on of sacroiliac joint 44898342 M46.1 [id number] Peyman Healy MD Main Office [address] [address] [place] [address] 03/18/2016 09:15:07 03/18/2016 10:32:41 Irritable bowel syndrome 39437448 K58.9 Diarrhea 60874643 R19.7 Knee pain 35661910 M25.5 61 Medial joint line tenderness with positive Malathi test. Rule out meniscus injury [id number] Barbara dumont Main Office [address] [address] [place] [address] 08/07/2016 10:37:00 08/07/2016 11:16:42 Upper respiratory infection 41139325 J06.9 PT. will use Mucinex DM or D BID for congestion and cough , nasal saline solution BID and FLonase she has at home qd. Rest and fluids. PT. will call office next week if worsening of symptoms , fever, colored secretions or facial pain. [id number] Peyman Healy MD Main Office [address] [address] [facility] [place] [address] 12/30/2016 10:04:42 12/30/2016 11:06:58 Adult health examination 687225133 Z00.00 Tobacco de pendence syndrome 85671455 F17.290 Reviewed motivation s for smoking cessation. Advised about benefits of stopping smoking. Elevated blood-pressure reading without diagnosis of hypertension 465297128 R03.0 Had elevated BP under propafol for colonoscop y Anxiety state 359116644 F41.1 STable on medication Hyperlipidemia 24528923 E78.5 Fatigue 87841845 R53.83 Hyperhidrosis 769302021 R61 Nasal vestibulitis 62039 000 J34.89 Body mass index 25-29 - overweight 433551336 E66.3 Z68.25 [id number] Sim Garcia MD Main Office [address] [place] [address] 09/15/2017 13:21:04 09/15/2017 14:12:54 Acute sinusitis 99767520 J01.90 pt requested diflucan - rec add probiotic supp qd soniya for her IBS c/o - hopefully not require levsin as much. also advised pt could use bactroban in nares to help nasal lining sxs as well for a few days [id number] Peyman Healy MD Main Office [address] [facility] [address] [place] [address] 02/11/2018 15:00:11 02/11/2018 16:22:57 Adult health examination 301928345 Z00.00 Tobacco de pendence syndrome 06048047 F17.290 Reviewed motivation s for smoking cessation. Advised about benefits of stopping smoking. Generalize d anxiety disorder 50480681 F41.1 Irritable bowel syndrome 79100884 K58.9 Body mass index 25-29 - overweight 419626047 E66.3 Z68.25 Hyperlipidemia 30101139 E78.5 Fatigue 67162002 R53.83 Greater tr ochanteric pain syndrome 7895907 M70.62 Neck pain 11298551 M54.2 Inflammati on of sacroiliac joint 13393509 M46.1 [id number] Lynda Papo Main Office [address] [facility] [address] [place] [address] 04/19/2018 10:32:33 04/19/2018 12:00:32 Needs influenza immunization 529747903 Z23 had flu shot last week -- flu shot NOT given today Cough 18533760 R05 suspect early pna - will check cxr and give abx proactivel y Infective pneumonia 3123 92778 J18.9 rec probiotics while on abx, also rec proair and peace -- see below [id number] Sim Garcia MD Main Office [address] [address] [place] [address] 09/02/2018 09:42:20 09/02/2018 10:35:38 Acute pharyngitis 071332819 J02.9 Based on risk score and recent exposure will cover for strep. D/C if culture is negative. Supportive /symptomat ic tx advised in meantime. Call inb/worse or if new symptoms develop. [id number] BRODY Roberts Main Office [address] [address] [place] [address] 02/14/2019 15:20:06 02/14/2019 16:13:10 Adult health examination 218894207 Z00.00 HM UTD, will check blood work. Tobacco de pendence syndrome 42149634 F17.290 Reviewed present motivation s for smoking cessation. Patient reports that being ready to attempt smoking cessation. Discussed options for support. Hyperlipidemia 73738029 E78.5 Family his tory of Thyroid disorder 031501122 Z83.49 [id number] Conrado Jiang PA-C Main Office [address] [address] [place] [address] 06/14/2019 09:04:31 06/14/2019 10:28:17 Pain in left foot 0239490489 83604 M79.672 pt c/o pain at top of L foot x months, but now acutely worse these past few wks - concerned - will get xray to r/o hairline fx-- pain soniya at distal 4th/5th metatarsal s pending see derm for procedure on bottom of L foot in 1.20 - believe is completely separate bc is more central as opposed to close in proximity to above pain encouraged pt to f/u c automatic lathe tender as well - cont orthotics as per automatic lathe tender [id number] Melina Mckay Main Office [address] [address] [place] [address] 08/28/2019 15:25:19 08/28/2019 16:54:55 Acute pharyngitis 731820513 J02.9 steam, salt water gargles several times a day, otc pain reliever as needed. Call if sx persist, regular TC sent out Eustachian tube disorder 56324366 H69.93 gargles, hydration try flonase once a day, call if ear pain persists; no evidence of otitis media today. [id number] BRODY Roberts Main Office [address] [address] [place] [address] 03/26/2020 10:23:16 03/26/2020 11:21:36 Adult health examination 341735723 Z00.00 HM UTD, will check blood work. Needs infl uenza immunization 289815606 Z23 Elevated blood-pressure reading without diagnosis of hypertension 605481493 R03.0 Irritable bowel syndrome 48862192 K58.9 Body mass index 25-29 - overweight 820499759 Z68.28 E66.3 Screening for cardiovascular system disease 266715795 Z13.6 Major depr ession single episode, in partial remission 58631602 F32.4 [id number] Melina Mckay Main Office [address] [address] [place] [address] 05/27/2020 10:30:41 05/27/2020 11:38:57 Strain of muscle of right shoulder 8135852700 1548255 S46.911A check xray of shoulder, rest, no sling, keep gentle ROM if xray negative, can use OTC pain reliever, Start PT belen. If worsening to call. Out of work for 1 week, if needs more time will call Use ice x 24-48 hours, then ice/heat. Inflammati on of sacroiliac joint 61875930 M46.1 Rest, stretching , change position frequently , will call if any worsening sx. [id number] BRODY Roberts Main Office [address] [facility] [address] [place] [address] 07/23/2020 14:49:33 07/23/2020 15:25:15 Otalgia 96396877 H92.02 Left ear pain but it hurts if she swallows, turns her head, yawns ect. suspect related to lymph node. Cervical lymphadenopathy 299531773 R59.0 left anterior cervical node tenderness , swelling. causes ear pain. Exposure t o viral disease 6034355053 60273 Z03.818 had temp 99.5 today. has had chills/ feeling hot and cold, very fatigued. she did have moderna covid vaccine 07/03 and had side effects to that which have resolved. 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 [id number] Bailee Hirsch MD Main Office [address] [facility] [address] [place] [address] 09/27/2020 12:55:59 09/27/2020 13:27:31 Pain of right ankle joint 5764942242 1041056 M25.571 Pain in the medial malleus on exam, the area was swollen.Ad vised rest, ice elevation and compressio n with ADRIEL.She meets viejas criteria of Xray, will get Xray.Advis ed to avoid overuse.Monae reanna cannot tolerate NSAID and takes tylenol conservati vely due to elevated LFT, she does not Patient is open to take low dose steroids will send prednisone for 5 days to be taken with meals.Brook ent aware narcotics will not provide relief in this case as there is no fracture but rather inflammati on.Will send to podiatry to josephine as well, Patient is establishe d with [facility] and I advised her to call. Plantar fa sciitis of left foot 4080562248 4982565 M72.2 Patient has tried exercises and Boot at night with no improvemen t.Will refer to podiatry to consider injections . Patient is establishe d with [facility] and I advised her to call for apt. Pain in left foot 997892 8103 52605 M79.672 DDx include neuroma, nerve entrapment .Patient cannot tolerate NSAID and takes tylenol conservati vely due to elevated LFTrecomme nded gabapentin renal dose but declined.P atient is open to take low dose steroids will send prednisone for 5 days.Patie nt aware narcotics will not provide relief in this case.Will refer to podiatry for further eval and advise on the type of shoe she has. Patient is establishe d with [facility] and I advised her to call.No xray at this time as she does not meet viejas criteria for xray. [id number] Lynda Barros [facility] [address] [facility] [address] [place] [address] 10/02/2020 11:39:51 10/02/2020 15:16:28 Diarrhea 30580167 R19.7 has resolved but nausea persists. Abdominal pain 30747271 R10.9 Exposure t o viral disease 0308281735 73232 Z03.818 Nausea 063073687 R11.0 use as needed Primary bi liary cholangitis 63421254 K74.3 on ursodiol taking med as directed. Renal cell carcinoma [address] in October. [id number] BRODY Roberts Main Office [address] [facility] [address] [place] [place] [address] 03/27/2021 08:31:51 03/27/2021 09:24:31 Adult health examination 870472648 Z00.00 UTD, has bloodwork regularly for her kidney/ ct scans Elevated blood-pressure reading without diagnosis of hypertension 580509272 R03.0 BP normal manually Renal cell carcinoma 702 760157 C64.9 Followed by urology, 1 kidney Primary bi liary cholangitis 12455278 K74.3 on ursodiol taking med as directed. Generalize d anxiety disorder 27380617 F41.1 on sertraline , considerin g weaning off. she will go to 25mg for now through the winter Administra tion of viral vaccine 06750803 Z23 [id number] Livan Fatima MD Main Office [address] [facility] [address] [place] [place] [address] 03/31/2021 13:28:41 03/31/2021 14:16:10 Cellulitis of left upper limb 6597145707 3828738 L03.114 NSAIDs for pain and swelling and ice. May not be an infection but instead may be a local reaction to the immunizati on. She will call if she develops diarrhea because of her h/o c. dif. [id number] BRODY Roberts Main Office [address] [facility] [address] [place] [address] 09/12/2021 10:16:27 09/12/2021 10:46:05 Low back pain 082001407 M54.50 low back pain, will tx with prednisone burst and flexeril as needed. no driving or alcohol with med. Heat to area as needed. stretching as tolerated. if sx persist will need imaging. Call or return for worsening or concerns. History of malignant neoplasm of kidney 083856622 Z85.528 renal cell carcinoma, left kidney. nephrectom y. Primary bi liary cholangitis 98672860 K74.3 on ursodiol taking med as directed. [id number] Lynda Barros [facility] [address] [facility] [address] [place] [address] 12/24/2021 09:23:33 12/24/2021 11:19:34 Cough 10883052 R05.1 Pneumonia 948709409 J18. 9 will send over Zpak to cover possible evolving pneumonia, pt will hold off on taking abx and call and check her RSV and Flu are neg(Covid is neg) and see how she does for next 48 hrs. IF neg flu and rsv and worsens with getting SOB, produtive cough with sputum or fever pt to start zpak then. If improves no role for abx. Hx of C dif so pt knows to take only if worsening no role for CXR at this time [id number] BRODY Roberts Main Office [address] [facility] [address] [place] [address] 04/21/2022 13:10:00 04/21/2022 14:08:51 Pre-surgery evaluation 167679181 Z01.818 Having right topaz plantar fasciotomy with Dr. Rodriguez on 05/06/22. Labs pending, EKG NSR- no acute ST abnormalit y. 04/29/22: Labs stable, EKG normal.Acc ording to Brigida Diana-opera tive Risk Assessment , based on patient's age, creatinine , ASA class and surgical procedure, patient has a?? 0.4% risk of diana-opera tive myocardial infarction or cardiac arrest.??n o further work-up necessary, may proceed with surgery as scheduled. Renal cell carcinoma 702 813468 C64.9 Followed by urology, 1 kidney Elevated blood-pressure reading without diagnosis of hypertension 642393481 R03.0 BP normal manually Primary bi liary cholangitis 19083793 K74.3 on ursodiol taking med as directed. Fibromatos is of plantar fascia of right foot 0594316272 8734224 M72.2 having fasciotomy Hyperlipidemia 34841681 E78.5 Fatigue 79361892 R53.83 Impaired f asting glycemia 022738590 R73.01 Generalize d anxiety disorder 99108291 F41.1 she will go to 25mg daily x 2 weeks. [id number] BRODY Roberts Main Office [address] [facility] [address] [place] [address] 04/23/2022 10:39:54 04/23/2022 11:22:36 Adult health examination 478675191 Z00.00 HM due for mammo and pap- she will schedule, colonoscop y due in 2026. Flu shot today. Bloodwork was done this morning, pending results. Needs infl uenza immunization 226296420 Z23 Fibromatos is of plantar fascia of right foot 8889892749 8975515 M72.2 having fasciotomy Primary bi liary cholangitis 33215747 K74.3 on ursodiol taking med as directed. Renal cell carcinoma 702 691581 C64.9 Followed by urology, 1 kidney Generalize d anxiety disorder 40013048 F41.1 Continue sertraline 25mg daily x 2 weeks, then cut tab in half and take 12.5mg daily x 2 weeks.then will take 6.25mg daily x 1 week then stop medication .If any trouble stopping med please call/ return Pain of le ft hip joint 5679658980 72248 M25.552 [id number] Susan Jiang PA-C Main Office [address] [facility] [address] [place] [address] 03/16/2023 10:12:04 03/16/2023 10:58:48 Viral upper respiratory tract infection 933086690 J06.9 Pt. is advised to increase hydration and rest, add otc decongesta nts such as Delsym, diphenhydr amine. Nasal saline or saline rinse. [id number] Lynda Barros Main Office [address] [address] [place] [address] 04/27/2023 08:48:38 04/27/2023 09:46:23 Adult health examination 807615813 Z00.00 HM- UTD, pap, mammo and colo UTD. Fibromatos is of plantar fascia of right foot 0914803187 7942871 M72.2 had fasciotomy last May, still has pain and now has chronic tendinitis . Primary bi liary cholangitis 05528569 K74.3 on ursodiol taking med as directed. Generalize d anxiety disorder 26098451 F41.1 Continue sertraline 25mg daily Hyperlipidemia 79290750 E78.5 Impaired f asting glycemia 529554677 R73.01 Fatigue 87852553 R53.83 Body mass index 30+ - obesity 150236642 Z68.34 Elevated blood-pressure reading without diagnosis of hypertension 462993326 R03.0 BP manually 136/80, thi is elevated for her and was elevated at her last visit. She will work on cutting back on sodium, drinking more water and starting to walk again. F/U in 1 month for recheck. History of malignant neoplasm of kidney 356770428 Z85.528 Followed by urology, 1 kidney, had CT scan in October Obesity 193688862 E66.9 [id number] BRODY Roberts Main Office [address] [address] [place] [address] 07/13/2023 11:12:57 07/13/2023 11:59:34 Fever 555176200 R50.9 + covid, continue tylenol or nyquil/ dayquil Cough 78358086 R05.9 COVID-19 696551757 U07.1 Covid positive in office, this is day 5 of sx and she only has 1 kidney due to RCC. She declines paxlovid. Hydration, rest, if feeling better quarantine x 5 days then mask for 5 days. If not better after 5 days quarantine for full 10 days. Tylenol as needed, OTC cough med as needed. Call/ return for worsening sx or concerns.T o ED if any resp distress, severe or worsening sx. [id number] Brady Sanchez [facility] Main Office [address] [facility] [address] [place] [address] 05/02/2024 15:16:10 05/02/2024 15:45:05 Adult health examination 736421115 Z00.00 HM- UTD, pap, mammo and colo UTD. Primary bi liary cholangitis 01834093 K74.3 on ursodiol taking med as directed. History of malignant neoplasm of kidney 059295089 Z85.528 Followed by urology, 1 kidney, had CT scan in October- all good. Generalize d anxiety disorder 83493973 F41.1 Continue sertraline 25mg daily Hyperlipidemia 68632265 E78.5 Impaired f asting glycemia 240426007 R73.01 Fatigue 01550226 R53.83 Elevated blood-pressure reading without diagnosis of hypertension 020181571 R03.0 BP manually 120/66 Obesity 545749264 E66.9 Body mass index 30+ - obesity 475902147 Z68.34 Vitamin D deficiency 347 05866 E55.9 [id number] Brady Sanchez [facility] Main Office [address] [facility] [address] [place] [address] 07/06/2024 10:28:25 07/06/2024 11:31:13 Cough 37409123 R05.9 declines cough med currently, neg flu and covid. +OM Acute righ t otitis media 801816154 H66.91 Hydration, rest, tylenol as needed, tea with honey. clarithrom ycin as directed. Health Concerns Section Related Observation LastModified by Organization Detai ls LastModified Time None Recorded Concern Status LastModified by Organization Details LastModified Time None Recorded Advance Directives Directive Y: signed on 11/21/2014 Payers Encounter Date Sequence Insurance Name Policy Number Policy Ward Covered Member ID Ward Member ID Guarantor Name 03/16/2023 1 [facility] [id number] Tere Hardwickoney [id number] Tere A Vernon 04/27/2023 1 [employer] [id number] Tere A Vernon [id number] Etre Sara Vernon 07/13/2023 1 [employer] [id number] Tere A Vernon [id number] Tere Sara Vernon 05/02/2024 1 [employer] [id number] Tere A Vernon [id number] Tere Sara Vernon 07/06/2024 1 [employer] [place] [id number] Tere Hardwickoney [id number] Tere Junior Notes Date Note Type Note Provider Name and Address Organization Details Recorded Time 03/16/2023 text/html 48 year old fema le c/o 3 day onset of sinus congestion, fatigue, body aches and headache. Tested neg for COVID. Pt. denies fever or chills. NO cough. C/o ear fullness. NO sore throat reported, but postnasal secretions. NO facial pain. Susan Jiang PA-C [address] [address], [place], [address], [facility] [place] 03/16/2023 12:05:23 04/27/2023 text/html Generic HPI TemplateReported bypatient.Notes:Presen ts for PE,No concerns but BP is high. No headaches, sometimes does get chest discomfort at random times, no palpitationsShe did stop sertraline completely, felt angry and was crying all the time, re-started 25mg and feeling better overall, not crying all the time.No period since FebruaryEating out more, cut out afternoon coffee, stress Lyndamanjinder ortega, [facility] 04/27/2023 15:30:51 07/13/2023 text/html Generic HPI TemplateReported bypatient.Notes:Sx started wednesday- body aches, couldn't sleep, chills, fever, congestion, couhg with production, slight SOB with activity, no N/V/D, no sore throat, ear pain, no headache. neg covid- this morning.Neg flu test here.Taking nyquil and dayquil with some relief. - feels like chest hurts. BRODY Roberts [address] [address], [place], [phone], [facility] [place] 07/13/2023 12:14:09 05/02/2024 text/html Generic HPI TemplateReported bypatient.Notes:Presen ts for PE,No concerns but BP is high. No headaches, sometimes does get chest discomfort at random times, no palpitationshas lost 4 lbs and 13 inches since January. is having hot flashes, night sweats, mood changes BRODY Roberts [facility] [address], [place], [phone], [facility] 05/02/2024 16:02:35 07/06/2024 text/html Generic HPI TemplateReported bypatient.Notes:Sx started Wednesday- body aches, chills, low grade temp, cough, dry for now but feels congestion, nasal congestion- yellow, sinus pressure/ pain, teeth pain, ear pain and blocked- bilateral, no N/V/D.No sick contacts BRODY Roberts [address] [address], [place], [phone], [facility] 07/06/2024 12:04:20 OBGyn Episode No OBEpisode recorded.
== END 2024-08-17 16:54 | disposition home or self-care (01) ==
PROVIDERS: PCP Registered Nurse; Visit Provider Physician Assistant
DX: M79.671 Pain in right foot (principal)

== ENCOUNTER 2024-08-17 16:12 | Outpatient (REF) | payer OTHER, SELFPAY ==
--- NOTE | ~2024-08-17 | XR_ITS ---
EXAMINATION: XR FOOT 3 OR MORE VIEWS RIGHT HISTORY: M79.671 - Pain in right foot COMPARISON: There are no prior studies available for comparison. FINDINGS: Three views of the right foot are submitted. Osseous mineralization is normal. There is no fracture or dislocation. The joint spaces are preserved. The soft tissues are unremarkable. XR/XR foot RT min 3V IMPRESSION: Unremarkable examination of the right foot. Electronically signed by: Rodrigo Keene MD 08/18/2024 08:04 AM MELI
== END 2024-08-17 16:13 | disposition home or self-care (01) ==
LOC: HO.HMGCX 16:12
PROVIDERS: PCP Registered Nurse; Visit Provider Physician Assistant
DX: M79.671 Pain in right foot (principal)
CPT/HCPCS: 73630

== ENCOUNTER → 2024-08-17 16:27 | Outpatient (BNV) | payer OTHER, SELFPAY | PROVIDERS: PCP Registered Nurse; Visit Provider Radiology Diagnostic Radiology | DX: M79.671 Pain in right foot (principal) | CPT/HCPCS: 73630 ==

== ENCOUNTER → 2024-09-06 11:00 | Outpatient (BNV) | payer OTHER, SELFPAY | PROVIDERS: Absent Provider Obstetrics & Gynecology; PCP Registered Nurse; Visit Provider Internal Medicine | DX: Z12.31 Encounter for screening mammogram for malignant neoplasm of breast (principal) | CPT/HCPCS: 77063; 77067 ==

== ENCOUNTER 2024-09-06 11:05 | Outpatient (REF) | payer OTHER, SELFPAY ==
--- NOTE | ~2024-09-06 | MM_ITS ---
EXAMINATION: MM SCREENING DIGITAL BREAST TOMOSYNTHESIS, BILATERAL CLINICAL INFORMATION: Screening. Asymptomatic. COMPARISON: Mammography: Comparison is made with available priors TECHNIQUE: Digital breast mammography with tomosynthesis is performed in both the craniocaudal and mediolateral oblique views along with computer-aided detection (CAD). FINDINGS: There are scattered areas of fibroglandular density (ACR BI-RADS breast composition Category b). There are no significant masses, abnormal calcifications, or other abnormalities. MM/MM tomosynthesis screening BI IMPRESSION: No mammographic evidence of malignancy. ASSESSMENT: BI-RADS BI-RADS 1 - Negative RECOMMENDATION: Routine annual mammography screening. 1 year F/U This examination should not preclude the clinical evaluation of a suspicious palpable abnormality. This patient's information was entered into a reminder system with a target due date for their next mammogram. Electronically signed by: Gabby Garcia DO 09/06/2024 11:31 AM MELI
--- OUTSIDE RECORDS SUMMARY | 2024-09-06 13:24 | XMS_ITS | Patient Health Record ---
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 . [...] . 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) Active [...] Insured Coverage Start Date Coverage End Date [facility] [address] [facility] [place] [phone] [id number] Tere Junior Self - patient is the insured Medical (General) History Medical History History ICD Code Anxiety Back,Hip,and Knee pain Chicken pox keloids Psoriasis/eczema Raynauds syndrome Sciatica Anemia chronic sinusitis kidney cancer covid-19 Surgical History Surgery Date(Month/Year) Cysts removed 1980s Tonsillectomy 1998 01/2004, 03/2007 tubal ligation 2011 kidney surgery - left kidney removed 11/2020 [place] plantar fasciotomy right 2
--- OUTSIDE RECORDS SUMMARY | 2024-09-06 13:24 | XMS_ITS | Data Portability ---
Author Organization [facility], Main Office Address [address] [facility] [place] [address] Care Team Providers Care Lead Programmer Analyst Name Role Phone LAURA NAIK Bulb Grader VALERIO NIETO Software Engineering Manager GILMER MARTINO Aerospace Physiological Technician [phone] ODILIA DOYLE Urologist TRESA BERRY Urologist BRADY SANCHEZ Primary Care Provider Assessment No assessment recorded. Plan of Treatment Reminders Order Date Submit Date Provider Last Modified By Organization Details Last Modified Time Details Appointments None recorde d. Lab rapid flu (A+B) 2024 025 PROCTOR In-Office Order, Internal Use Only DO Not Attach Compendium DO Not Attach Compendium, Do Not Delete/merge, [id number] 5 11:16:34 rapid SARS CoV 2 Ag, QL IA, respira tory specime n 2024 025 PROCTOR In-Office Order, Internal Use Only DO Not Attach Compendium DO Not Attach Compendium, Do Not Delete/merge, [id number] 5 11:09:10 CMP, serum or plasma 2023 024 [facility] (Lab), [address] [place] [address], [address], 4 11:32:57 lipid panel, serum 2023 024 [facility] (Lab), [address] [place] [address], [address], 4 11:32:57 TSH, serum or plasma 2023 [facility] (Lab), [address] [place] [address], [address], 4 15:28:53 T4, free, serum 2023 [facility] (Lab), [address] [place] [address], [address], 4 15:28:53 HbA1c (hemogl obin A1c), blood 2023 [facility] (Lab), [address] [place] [address], [address], 4 15:28:52 vitamin D, 25-hydr oxy, total, serum 2023 [email or web address], [address], [place], [address], 5 09:12:11 CBC w/ auto diff 2023 024 [facility] (Lab), [address] [place] [address], [address], 4 15:28:53 rapid flu (A+B) 2023 024 MANISHA In-Office Order, Internal Use Only DO Not Attach Compendium DO Not Attach Compendium, Do Not Delete/merge, [id number] 4 11:40:33 rapid SARS CoV 2 Ag, QL IA, respira tory specime n 2023 024 MANISHA In-Office Order, Internal Use Only DO Not Attach Compendium DO Not Attach Compendium, Do Not Delete/merge, [id number] 4 12:02:21 CMP, serum or plasma 2022 023 [facility] (Lab), [address] [place], [address], 3 11:26:05 lipid panel, serum 2022 023 [facility] (Lab), [address] [place], [address], 3 11:26:06 TSH, serum or plasma 2022 023 [facility] (Lab), [address] [place], [address], 3 11:55:36 T4, free, serum 2022 023 [facility] (Lab), [address] [place], [address], 3 09:18:01 HbA1c (hemogl obin A1c), blood 2022 023 [facility] (Lab), [address] [place], [address], 3 09:18:01 CBC w/ auto diff 2022 023 [facility] (Lab), [address] [place], [address], 3 09:18:01 Referral None recorde d. Procedures None recorde d. Surgeries None recorde d. Imaging XR, chest - cough, fever, chills, chest pain, r/o PNA 2023 024 [facility] (Imaging), [address] [place], [address], 4 13:39:20 electro cardiog bettye 2022 023 [email or web address] In-Office Order, Internal Use Only DO Not Attach Compendium DO Not Attach Compendium, Do Not Delete/merge, [id number] 09:46:23 Medication Orders clarith romycin 500 mg tablet 2024 025 [facility]/Pharmacy #[id number], [address] [place], [address], 5 11:24:04 sertral ine 25 mg tablet 2023 024 [facility]/Pharmacy #[id number], [address] [place], [address], 15:27:20 Patient TargetsNo targets recorded. Patient Instructions Encounter Date Encounter Id Patient Instructions Last Modified By Organization Details Last Modified Time 03/16/2023 [id number] viral respirator y infection: care instructions [email or web address] Not available 03/16/2023 12:05:08 04/27/2023 [id number] dash diet: care instructions [email or web address] Not available 04/27/2023 09:52:40 high blood pressure: care instructions [email or web address] Not available 04/27/2023 09:52:41 low sodium diet (2,000 milligram): care instructions [email or web address] Not available 04/27/2023 09:52:40 starting a weigh t loss plan: care instructions [email or web address] Not available 04/27/2023 15:30:46 To call or retur n for worsening or concerns [email or web address] Not available 04/27/2023 09:15:56 07/13/2023 [id number] 10 things to do when you have covid-19 jthabet Not available 07/13/2023 12:12:37 coronavirus (covid-19): care instructions [email or web address] Not available 07/13/2023 12:12:37 To call or retur n for worsening or concerns jthabet Not available 07/13/2023 12:13:59 05/02/2024 [id number] dash diet: care instructions jthabet Not available 05/02/2024 15:27:17 high blood pressure: care instructions [email or web address] Not available 05/02/2024 15:27:17 low sodium diet (2,000 milligram): care instructions [email or web address] Not available 05/02/2024 15:27:17 starting a weigh t loss plan: care instructions [email or web address] Not available 05/02/2024 15:27:16 To call or retur n for worsening or concerns [email or web address] Not available 05/02/2024 15:32:51 07/06/2024 [id number] To call or retur n for worsening [...] DO Not Attach Compendium, Do Not Delete/merge, [id number] 07/13/2023 11:48:22 07/13/19 24 07/13/2023 rapid flu (A+B) Flu A negati ve Not Available In-Office Order Internal Use Only DO Not Attach Compendium DO Not Attach Compendium, Do Not Delete/merge, [id number] 07/13/2023 11:21:58 07/13/19 24 07/13/2023 rapid flu (A+B) Flu B negati ve Not Available In-Office Order Internal Use Only DO Not Attach Compendium DO Not Attach Compendium, Do Not Delete/merge, [id number] 07/13/2023 11:21:58 07/06/19 25 07/06/2024 rapid flu (A+B) Flu A negati ve Not Available In-Office Order Internal Use Only DO Not Attach Compendium DO Not Attach Compendium, Do Not Delete/merge, [id number] 07/06/2024 10:50:01 07/06/19 25 07/06/2024 rapid flu (A+B) Flu B negati ve Not Available In-Office Order Internal Use Only DO Not Attach Compendium DO Not Attach Compendium, Do Not Delete/merge, [id number] 07/06/2024 10:50:01 07/06/19 25 07/06/2024 rapid SARS CoV 2 Ag, QL IA, respi rator y speci men RAPID SARS COV 2 negati ve Not Available In-Office Order Internal Use Only DO Not Attach Compendium DO Not Attach Compendium, Do Not Delete/merge, [id number] 07/06/2024 10:50:14 04/27/2004/27/2023 shelia johnson am No observ ation record ed. [email or web address] In-Office Order Internal Use Only DO Not Attach Compendium DO Not Attach Compendium, Do Not Delete/merge, [id number] 04/27/2023 09:49:11 04/27/20 shelia johnson am No observ ation record ed. [email or web address] In-Office Order Internal Use Only DO Not Attach Compendium DO Not Attach Compendium, Do Not Delete/merge, [id number] 04/27/2023 09:39:42 07/13/1907/13/2023 XR, chest No observ ation record ed. [facility] (Imaging) [address] [place], [address], 07/20/2023 08:53:36 08/24/19 24 08/24/2023 US, doppl er, venou s No observ ation record ed. [email or web address] [place] [address] (Medical Records) [address] [place], [address], 08/25/2023 08:42:01 08/30/19 24 08/30/2023 MAMMO , [...] Lay letter mailed to bert walker WSN: [id number] Orderi ng Physic yves: Laura LICONA, Ian Richard Dictat ed By: Leo Villaseñor MD Dictat ed Date/T sha: 4:38 pm Review ed By: Leo Villaseñor MD Signed By: Leo Villaseñor MD Signed Date/T sha: 4:38 pm Transc ribed By: CSB Transc riptio n Date/T sha: 1:13 pm Birads : Bert walker Class: Outpat ient [address] (Outpt Imaging) [address] [place], [address], 08/31/2023 10:24:05 11/03/19 24 11/02/2023 CT, abdom en + pelvi s, w/ contr ast No observ ation record ed. [email or web address] [address] [place], [address], 11/03/2023 13:36:14 12/17/19 24 12/17/2023 XR, chest No observ ation record ed. [facility] [address] [place], [address], 12/17/2023 14:14:49 12/17/19 24 12/17/2023 CT, abdom en + pelvi s, w/o contr ast No observ ation record ed. [address] (Medical Records) [address] [place], [address], 12/20/2023 08:52:21 08/18/19 25 08/17/2024 Foot and Ankle outco me score No observ ation record ed. [email or web address] Not Available 2024 11:08:15 09/07/19 25 09/06/2024 imagi ng/di agnos tic resul t No observ ation record ed. [email or web address] [facility] [address] [place], [address], 09/06/2024 13:20:31 Result Notes None recorded. Problems Name Problem SNOMED Code Status Onset Date Resolution Date Notes Provider Name and Address Organization Details Recorded Time Acute pharyngi tis 838192728 Completed 201101/16/2014 RECORDED 05/13/20 12 3:41PM BY ALLA BAUM MA, ANNOTATI ON/ADDEN DUM Peyman Healy MD [address] [facility] [address], [place], [address], [facility] 7 10:24:09 Adult health examinat ion Completed 201303/18/2016 Diana martines MA null, [facility] 6 09:23:31 Anxiety state 034132849 Completed 201312/30/2016 Peyman Healy MD [address] [facility] [address], [place], [address], [facility] 7 10:23:44 Backache 019333842 Completed 201301/16/2014 IMPRESSI ON: > 1 WEEK OF WORSENIN G BACK PAIN, UNABLE TO STAND UPRIGHT, LEGS GIVING OUT. PAIN NOW RADIATIN G INTO BUTTOCKS AND ANTERIOR THIGHS. MRI REVEALED SCHMORL' S NODES, OTHERWIS E NEG. TO PSS FOR FURTHER EVAL.; RECORDED 10/05/19 14 2:28PM BY DIANA NUNEZ MA, ANNOTATI ON/ADDEN DUM Susan Jiang PA-C [address] [facility] [address], [place], [address], [facility] 6 15:45:51 Bronchit is [id number] Completed 201201/16/2014 RECORDED 07/28/19 13 1:45AM BY ALLA BAUM MA, ISAIAHATI ON/ADDEN CittadinoSusanyimi Jiang CO-C [address], [place], [address], [facility] 6 15:45:51 Acute bronchit is 59079723 Completed 201301/16/2014 IMPRESSI ON: LIKELY MOSTLY VIRAL SXS, HOWEVER DUE TO SMOKING STATUS AND RISK OF BACTERIA L BRONCHIT IS OR PNA TO TX WITH ABX. REST, FLUIDS, COUGH MED AT NIGHT PRN. CALL FOR WORSENIN G/PRN.; RECORDED 10/05/19 14 2:26PM BY DIANA NUNEZ MA, MARY CARMEN ON/ADDEN GEORGE Jiang CO-C [address], [place], [address], [facility] 6 15:45:51 Screenin g for malignan t neoplasm of cervix Completed 201101/16/2014 RECORDED 05/13/20 12 3:41PM BY ALLA BAUM MA, MARY CARMEN ON/[employer] DUM Susanyimi Jiang CO-C [address], [place], [address], [facility] 6 15:45:51 Cough [id number] Completed 201301/16/2014 IMPRESSI ON: POSSIBLE PNEUMONI A WITH THE FOCAL RALES. IF SHE DOES NOT IMPROVE WITH THE ABX SHE WILL GET A CXR.; RECORDED 10/05/19 14 2:26PM BY DIANA NUNEZ MA, MARY CARMEN ON/ADDEN BRODY Ferro [address], [place], [address], [facility] 4 11:48:33 Tobacco dependen ce syndrome 64691845 Active 2013 Diana martines MA null, [facility] 6 09:24:07 Tobacco dependen ce syndrome 98026600 Completed 201301/16/2014 RECORDED 10/05/19 14 2:27PM BY DIANA NUNEZ MA, ANNOTATI ON/ADDEN DUM Diana martines MA null, [facility] 6 09:24:07 Diarrhea 06408368 Completed 201301/16/2014 RECORDED 10/05/19 14 2:25PM BY DIANA NUNEZ MA, MARY CARMEN ON/ADDEN DUM Susan RHODESC [address], [place], [address], [facility] 6 15:45:51 Dysuria 76069102 Completed 201312/30/2016 RECORDED 10/05/19 14 2:30PM BY DIANA NUNEZ MA, OFFICE VISIT Peyman Healy MD [address], [place], [address], [facility] 7 10:24:17 Elevated blood-pr essure reading without diagnosi s of hyperten margaret 851980230 Active 2013 Diana martines [place] null, [facility] 7 11:51:58 Epigastr ic pain 14159498 Completed 201101/16/2014 IMPRESSI ON: PROBABLE GASTRITI S D/T RECENT NSAIDS AND PREDNISO NE TAPER, NO LONGER TAKING EITHER; RECORDED 05/13/20 12 3:41PM BY ALLA BAUM MA, MARY CARMEN ON/ADDEN DUM Susan RHODESC [address], [place], [address], [facility] 6 15:45:51 Follow-u p encounte r Completed 201201/16/2014 RECORDED 08/31/19 13 1:39PM BY RHONDA PETERSEN MA, MARY CARMEN ON/ADDEN DUM Susanyimi RHODESC [address], [place], [address], [facility] 6 15:45:51 Malaise and fatigue 073522661 Completed 201101/16/2014 IMPRESSI ON: PER PT REPORT WITH SIG INCREASE D STRESS LEVELS RECENTLY . SEES THERAPIS T WEEKLY, REC INCREASI NG ZOLOFT DOSE. CHANGED FROM 25- 50 MG.; RECORDED 05/13/20 12 3:41PM BY ALLA BAUM MA, MARY CARMEN ON/ADDEN DUM Susan Jiang PA-C [address] [facility] [address], [place], [address], [facility] 6 15:45:51 Gastroes ophageal reflux disease 248167463 Active 2013 Diana martines [place] null, [facility] 6 09:23:24 Headache 59303181 Completed 201301/16/2014 RECORDED 10/05/19 14 2:28PM BY DIANA NUNEZ MA, ISAIAHATI ON/ADDEN DUM Susan Jiang PA-C [address] [facility] [address], [place], [address], [facility] 6 15:45:51 Glucose level outside referenc e range 610312442 Completed 201312/30/2016 Peyman Healy MD [address] [facility] [address], [place], [address], [facility] 7 10:23:38 Hyperlip idemia 84853059 Completed 201312/30/2016 BRODY Roberts [address] [facility] [address], [place], [address], [facility] 2 14:05:28 Low back pain 793243576 Completed 201101/16/2014 RECORDED 05/13/20 12 3:41PM BY ALLA BAUM MA, ISAIAHATI ON/ADDEN DUM BRODY Roberts [address], [place], [address], [facility] 2 10:36:13 Acute lymphade nitis 90587272 Completed 201301/16/2014 IMPRESSI ON: PT VERY ANXIOUS [...] 10/05/19 14 2:26PM BY DIANA NUNEZ MA, ISAIAHATI ON/ADDEN GEORGE Jiang PA-C [address] [facility] [address], [place], [address], [facility] 6 15:45:51 Administ ration of bacteria l and viral vaccine Completed 201001/16/2014 RECORDED 09/20/19 11 1:19PM BY BABITA ANDERSON PA-C, OFFICE VISIT Susan Jiang PA-C [address] [facility] [address], [place], [address], [facility] 6 15:45:51 Psoriasi s 8220801 Active 2013 Diana martines [place] null, [facility] 6 09:24:04 Disorder of rotator cuff 343451714 Completed 201201/16/2014 IMPRESSI ON: SUSPECT SUPRASPI NATUS TENDON TEAR. 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 FURTHER F/U THROUGH [employer]. SHE WILL TAKE NSAID PRN AND ICE. MAY RETURN TO WORK.; RECORDED 08/31/19 13 1:39PM BY RHONDA PETERSEN MA, ANNOTATI ON/ADDEN DUM Susan Jiang PA-C [address], [place], [address], [facility] 6 15:45:51 Adult health examinat ion Completed 201101/16/2014 RECORDED 05/13/20 12 3:41PM BY ALLA BAUM MA, MARY CARMEN ON/ADDEN DUM GABRIELA Coburn, [facility] 6 09:23:31 Shoulder joint pain 433981293 Completed 201101/16/2014 STORY: R SIDED, X PAST TWO WEEKS WITHOUT HX OF TRAUMA OR INJURY RECENT OR PAST. WITH ASSOCIAT ED WEAKNESS , MINIMAL RESP TO NSAID. WILL CONTACT [facility] TO SEE IF THEY ARE ABLE TO SEE HER SOON, IF NOT WILL CHECK XRAYS WHILE AWAITING APPT.; RECORDED 05/13/20 12 3:41PM BY ALLA BAUM MA, MARY CARMEN ON/ADDEN DUM Susan LICONA-C [address], [place], [address], [facility] 6 15:45:51 Disorder of upper respirat ory system 465325089 Completed 201101/16/2014 RECORDED 05/13/20 12 3:41PM BY ALLA BAUM MA, MARY CARMEN ON/ADDEN DUM Susan LICONA-C [address], [place], [address], [facility] 6 15:45:51 Disorder of bursa of shoulder region 59237193 Active 2013 GABRIELA Coburn, [facility] 6 09:24:00 Temporom andibula r joint disorder 33513149 Active 2013 GABRIELA Coburn, [facility] 7 11:51:54 Acute upper respirat ory infectio n 72948162 Completed 201101/16/2014 IMPRESSI ON: 5 DAYS, NO FEVERS AND NO FOCAL SIGNS ON EXAM. LIKELY VIRAL, ADVISED RE REST, FLUIDS AND OTHER SX SUPPORT. CALL FOR WORSENIN G/PRN.; RECORDED 05/13/20 12 3:41PM BY ALLA BAUM MA, ISAIAHATI ON/ADDEN DUM Susan Jiang CO-C [address] [facility] [address], [place], [address], [facility] 6 15:45:51 Vernal conjunct ivitis 743094613 Completed 201101/16/2014 RECORDED 05/13/20 12 3:41PM BY ALLA BAUM MA, ANNOTATI ON/ADDEN DUM Susan LICONA [address] [facility] [address], [place], [address], [facility] 6 15:45:51 Candidal vulvovag initis 70624813 Completed 201301/16/2014 IMPRESSI ON: TENDS TO GET YEAST INFECTIO NS WITH ABX; RECORDED 10/05/19 14 2:26PM BY DIANA NUNEZ MA, MARY CARMEN ON/LUIS LICONA [address] [facility] [address], [place], [address], [facility] 6 15:45:51 Acute pharyngi tis 000786191 Completed 201102/08/2014 RECORDED 05/13/20 12 3:41PM BY ALLA BAUM MA, MARY CARMEN ON/ADDEN DUM Peyman Healy MD [address] [facility] [address], [place], [address], [facility] 7 10:24:09 Backache 801538931 Completed 201302/08/2014 IMPRESSI ON: > 1 WEEK OF WORSENIN G BACK PAIN, UNABLE TO STAND UPRIGHT, LEGS GIVING OUT. PAIN NOW RADIATIN G INTO BUTTOCKS AND ANTERIOR THIGHS. MRI REVEALED SCHMORL' S NODES, OTHERWIS E NEG. TO PSS FOR FURTHER EVAL.; RECORDED 10/05/19 14 2:28PM BY DIANA NUNEZ MA, MARY CARMEN ON/ADDMOHAN LICONA [address] [facility] [address], [place], [address], [facility] 6 15:45:51 Bronchit is 09712096 Completed 201202/08/2014 RECORDED 07/28/19 13 1:45AM BY ALLA BAUM MA, ANNOTATI ON/[facility] [address] [facility] [address], [place], [address], [facility] 6 15:45:51 Acute bronchit is 76963115 Completed 201302/08/2014 IMPRESSI ON: LIKELY MOSTLY VIRAL SXS, HOWEVER DUE TO SMOKING STATUS AND RISK OF BACTERIA L BRONCHIT IS OR PNA TO TX WITH ABX. REST, FLUIDS, COUGH MED AT NIGHT PRN. CALL FOR WORSENIN G/PRN.; RECORDED 10/05/19 14 2:26PM BY DIANA NUNEZ MA, ANNOTATI ON/[facility] [address] [facility] [address], [place], [address], [facility] 6 15:45:51 Screenin g for malignan t neoplasm of cervix Completed 201102/08/2014 RECORDED 05/13/20 12 3:41PM BY ALLA BAUM MA, ANNOTATI ON/[facility] [address] [facility] [address], [place], [address], [facility] 6 15:45:51 Cough [id number] Completed 201302/08/2014 IMPRESSI ON: PRODUCTI VE COUGH X 10D, + TOBACCO, WILL TX, ADVISE TO STOP SMOKING, RTC IF PERSISTE NT OR WORSENIN G SYMPTOMS .; RECORDED 10/05/19 14 2:26PM BY DIANA NUNEZ MA, ANNOTATI ON/[facility] MILA Roberts [address] [facility] [address], [place], [address], [facility] 4 11:48:33 Diarrhea 70258002 Completed 201302/08/2014 RECORDED 10/05/19 14 2:25PM BY DIANA NUNEZ MA, MARY CARMEN ON/ADDEN DUM Susanyimi LICONA-C [address], [place], [address], [facility] 6 15:45:51 Epigastr ic pain 58201311 Completed 201102/08/2014 IMPRESSI ON: PROBABLE GASTRITI S D/T RECENT NSAIDS AND PREDNISO NE TAPER, NO LONGER TAKING EITHER; RECORDED 05/13/20 12 3:41PM BY ALLA BAUM MA, MARY CARMEN ON/ADDEN DUM Susan LICONA-C [address] [facility] [address], [place], [address], [facility] 6 15:45:51 Follow-u p encounte r Completed 201202/08/2014 RECORDED 08/31/19 13 1:39PM BY RHONDA PETERSEN MA, MARY CARMEN ON/ADDEN DUM Susan LICONA-C [address] [facility] [address], [place], [address], [facility] 6 15:45:51 Malaise and fatigue 398931129 Completed 201102/08/2014 IMPRESSI ON: PER PT REPORT WITH SIG INCREASE D STRESS LEVELS RECENTLY . SEES THERAPIS T WEEKLY, REC INCREASI NG ZOLOFT DOSE. CHANGED FROM 25- 50 MG.; RECORDED 05/13/20 12 3:41PM BY ALLA BAUM MA, MARY CARMEN ON/ADDEN DUM Susan LICONA-C [address] [facility] [address], [place], [address], [facility] 6 15:45:51 Headache 35727229 Completed 201302/08/2014 RECORDED 10/05/19 14 2:28PM BY DIANA NUNEZ MA, MARY CARMEN ON/ADDEN DUM Susan Jiang PA-C [address] [facility] [address], [place], [address], [facility] 6 15:45:51 Low back pain 359994358 Completed 201102/08/2014 RECORDED 05/13/20 12 3:41PM BY ALLA BAUM MA, MARY CARMEN ON/ADDEN DUM BRODY Roberts [address] [facility] [address], [place], [address], [facility] 2 10:36:13 Acute lymphade nitis 04752097 Completed 201302/08/2014 IMPRESSI ON: PT VERY ANXIOUS [...] 2:26PM BY DIANA NUNEZ MA, MARY CARMEN ON/[facility] Susan Jiang PA-C [address] [facility] [address], [place], [address], [facility] 6 15:45:51 Administ ration of bacteria l and viral vaccine Completed 201002/08/2014 RECORDED 09/20/19 11 1:19PM BY BABITA ANDERSON PA-C, OFFICE VISIT Susan Jiang PA-C [address] [facility] [address], [place], [address], [facility] 6 15:45:51 Disorder of rotator cuff 584815519 Completed 201202/08/2014 IMPRESSI ON: SUSPECT SUPRASPI NATUS TENDON TEAR. 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 FURTHER F/U THROUGH [employer] [employer] [facility]. SHE WILL TAKE NSAID PRN AND ICE. MAY RETURN TO WORK.; RECORDED 08/31/19 13 1:39PM BY RHONDA PETERSEN MA, MARY CARMEN ON/LUIS LICONA-C [address] [facility] [address], [place], [address], [facility] 6 15:45:51 Shoulder joint pain 046609468 Completed 201102/08/2014 STORY: R SIDED, X PAST TWO WEEKS WITHOUT HX OF TRAUMA OR INJURY RECENT OR PAST. WITH ASSOCIAT ED WEAKNESS , MINIMAL RESP TO NSAID. WILL CONTACT [facility] TO SEE IF THEY ARE ABLE TO SEE HER SOON, IF NOT WILL CHECK XRAYS WHILE AWAITING APPT.; RECORDED 05/13/20 12 3:41PM BY ALLA BAUM MA, ANNOTATI ON/LUIS LICONA-C [address] [address], [place], [address], [facility] 6 15:45:51 Disorder of upper respirat ory system 640495064 Completed 201102/08/2014 RECORDED 05/13/20 12 3:41PM BY ALLA BAUM MA, ANNOTATI ON/LUIS RHODESC [address] [address], [place], [address], [facility] 6 15:45:51 Acute upper respirat ory infectio n 46666749 Completed 201102/08/2014 IMPRESSI ON: 5 DAYS, NO FEVERS AND NO FOCAL SIGNS ON EXAM. LIKELY VIRAL, ADVISED RE REST, FLUIDS AND OTHER SX SUPPORT. CALL FOR WORSENIN G/PRN.; RECORDED 05/13/20 12 3:41PM BY ALLA BAUM MA, ANNOTATI ON/LUIS RHODESC [address] [address], [place], [address], [facility] 6 15:45:51 Vernal conjunct ivitis 389868342 Completed 201102/08/2014 RECORDED 05/13/20 12 3:41PM BY ALLA BAUM MA, ANNOTATI ON/[employer]IL[employer] DUM Susan Jiang PA-C [address], [place], [address], [facility] 6 15:45:51 Candidal vulvovag initis 08719569 Completed 201302/08/2014 IMPRESSI ON: TENDS TO GET YEAST INFECTIO NS WITH ABX; RECORDED 10/05/19 14 2:26PM BY DIANA NUNEZ MA, MARY CARMEN ON/ADDEN DUM Susan Jiang PA-C [address], [place], [address], [facility] 6 15:45:51 Acute pharyngi tis 260470510 Completed 201102/09/2014 RECORDED 05/13/20 12 3:41PM BY ALLA BAUM MA, MARY CARMEN ON/ADDEN GEORGE Healy MD [address], [place], [address], [facility] 7 10:24:09 Backache 253710120 Completed 201302/09/2014 IMPRESSI ON: > 1 WEEK [...] [address], [place], [address], [facility] 6 15:45:51 Bronchit is 39952552 Completed 201202/09/2014 RECORDED 07/28/19 13 1:45AM BY ALLA BAUM MA, MARY CARMEN ON/ADDEN DUM Susan Jiang PA-C [address], [place], [address], [facility] 6 15:45:51 Acute bronchit is 11139077 Completed 201302/09/2014 IMPRESSI ON: LIKELY MOSTLY VIRAL SXS, HOWEVER DUE TO SMOKING STATUS AND RISK OF BACTERIA L BRONCHIT IS OR PNA TO TX WITH ABX. REST, FLUIDS, COUGH MED AT NIGHT PRN. CALL FOR WORSENIN G/PRN.; RECORDED 10/05/19 14 2:26PM BY DIANA NUNEZ MA, MARY CARMEN ON/ADDEN GEORGE LICONA-C [address] [address], [place], [address], [facility] 6 15:45:51 Screenin g for malignan t neoplasm of cervix Completed 201102/09/2014 RECORDED 05/13/20 12 3:41PM BY ALLA BAUM MA, MARY CARMEN ON/Belly BallotEN GEORGE Susanyimi LICONA-C [address], [place], [address], [facility] 6 15:45:51 Cough [id number] Completed 201302/09/2014 IMPRESSI ON: PRODUCTI VE COUGH X 10D, + TOBACCO, WILL TX, ADVISE TO STOP SMOKING, RTC IF PERSISTE NT OR WORSENIN G SYMPTOMS .; RECORDED 10/05/19 14 2:26PM BY DIANA NUNEZ MA, MARY CARMEN ON/ADDEN BRODY Ferro [address], [place], [address], [facility] 4 11:48:33 Diarrhea 60757828 Completed 201302/09/2014 RECORDED 10/05/19 14 2:25PM BY DIANA NUNEZ MA, MARY CARMEN ON/ADDEN GEORGE LICONA-C [address], [place], [address], [facility] 6 15:45:51 Epigastr ic pain 71113097 Completed 201102/09/2014 IMPRESSI ON: PROBABLE GASTRITI S D/T RECENT NSAIDS AND PREDNISO NE TAPER, NO LONGER TAKING EITHER; RECORDED 05/13/20 12 3:41PM BY ALLA BAUM MA, ANNOTATI ON/ADDEN DUM Susan Apolinar PA-C [address], [place], [address], [facility] 6 15:45:51 Follow-u p encounte r Completed 201202/09/2014 RECORDED 08/31/19 13 1:39PM BY RHONDA PETERSEN MA, MARY CAMREN ON/ADDEN DUM Susan Apolinar PA-C [address], [place], [address], [facility] 6 15:45:51 Malaise and fatigue 683596491 Completed 201102/09/2014 IMPRESSI ON: PER PT REPORT WITH SIG INCREASE D STRESS LEVELS RECENTLY . SEES THERAPIS T WEEKLY, REC INCREASI NG ZOLOFT DOSE. CHANGED FROM 25- 50 MG.; RECORDED 05/13/20 12 3:41PM BY ALLA BAUM MA, MARY CARMEN ON/ADDEN DUM Susan LICONA-C [address], [place], [address], [facility] 6 15:45:51 Headache 00536457 Completed 201302/09/2014 RECORDED 10/05/19 14 2:28PM BY DIANA NUNEZ MA, MARY CARMEN ON/ADDEN DUM Susan Apolinar PA-C [address], [place], [address], [facility] 6 15:45:51 Low back pain 805908951 Completed 201102/09/2014 RECORDED 05/13/20 12 3:41PM BY ALLA BAUM MA, ISAIAHATI ON/ADDEN DUM BRODY Roberts [address], [place], [address], [facility] 2 10:36:13 Acute lymphade nitis 82625500 Completed 201302/09/2014 IMPRESSI ON: PT VERY ANXIOUS [...] MARY CARMEN ON/LUIS DUM Susan Jiang PA-C [address] [facility] [address], [place], [address], [facility] 6 15:45:51 Administ ration of bacteria l and viral vaccine Completed 201002/09/2014 RECORDED 09/20/19 11 1:19PM BY BABITA ANDERSON PA-C, OFFICE VISIT Susan Jiang PA-C [address] [facility] [address], [place], [address], [facility] 6 15:45:51 Disorder of rotator cuff 664500391 Completed 201202/09/2014 IMPRESSI ON: SUSPECT SUPRASPI NATUS TENDON TEAR. 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 FURTHER F/U THROUGH [employer]. SHE WILL TAKE NSAID PRN AND ICE. MAY RETURN TO WORK.; RECORDED 08/31/19 13 1:39PM BY RHONDA PETERSEN MA, MARY CARMEN ON/LUIS DUM Susan Jiang PA-C [address] [facility] [address], [place], [address], [facility] 6 15:45:51 Shoulder joint pain 109994407 Completed 201102/09/2014 STORY: R SIDED, X PAST TWO WEEKS WITHOUT HX OF TRAUMA OR INJURY RECENT OR PAST. WITH ASSOCIAT ED WEAKNESS , MINIMAL RESP TO NSAID. WILL CONTACT [facility] TO SEE IF THEY ARE ABLE TO SEE HER SOON, IF NOT WILL CHECK XRAYS WHILE AWAITING APPT.; RECORDED 05/13/20 12 3:41PM BY ALLA BAUM MA, MARY CARMEN ON/ADDEN DUM Susan Jiang appssavvy-C [address] [facility] [address], [place], [address], [facility] 6 15:45:51 Disorder of upper respirat ory system 976343217 Completed 201102/09/2014 RECORDED 05/13/20 12 3:41PM BY ALLA BAUM MA, MARY CARMEN ON/ADDMOHAN DUM Susanyimi Ruffinden CO-C [address] [facility] [address], [place], [address], [facility] 6 15:45:51 Acute upper respirat ory infectio n 22773068 Completed 201102/09/2014 IMPRESSI ON: 5 DAYS, NO FEVERS AND NO FOCAL SIGNS ON EXAM. LIKELY VIRAL, ADVISED RE REST, FLUIDS AND OTHER SX SUPPORT. CALL FOR WORSENIN G/PRN.; RECORDED 05/13/20 12 3:41PM BY ALLA BAUM MA, ANNOTATI ON/LUIS Ruffinden CO-C [address] [facility] [address], [place], [address], [facility] 6 15:45:51 Vernal conjunct ivitis 844017186 Completed 201102/09/2014 RECORDED 05/13/20 12 3:41PM BY ALLA BAUM MA, MARY CARMEN ON/ADDEN DUM Susan RuffintribalX-C [address] [facility] [address], [place], [address], [facility] 6 15:45:51 Candidal vulvovag initis 88615160 Completed 201302/09/2014 IMPRESSI ON: TENDS TO GET YEAST INFECTIO NS WITH ABX; RECORDED 10/05/19 14 2:26PM BY DIANA NUNEZ MA, ANNOTATI ON/ADDEN DUM Susan Jiang PA-C [address], [place], [place], [address], [facility] 6 15:45:51 Wheezing symptom 834271610 Completed 12/30/2016 Peyman Healy MD [address], [place], [place], [address], [facility] 7 10:24:02 Acute sinusiti s 78927066 Completed 12/30/2016 Peyman Healy MD [address], [place], [place], [address], [facility] 7 10:23:40 Acute asthma 940440848 Completed 12/30/2016 Peyman Healy MD [address], [place], [address], [facility] 7 10:24:04 Acute allergic reaction 377595519 Completed 12/30/2016 Peyman Healy MD [address], [place], [place], [address], [facility] 7 10:23:59 Fatigue 69634743 Completed 12/30/2016 MILA Roberts [address], [place], [place], [address], [facility] 2 14:05:52 Irritabl e bowel syndrome 79229367 Active Susan Jiang PA-C [address], [place], [address], [facility] 6 15:45:51 Acute pharyngi tis 108789066 Completed 12/30/2016 Peyman Healy MD [address], [place], [address], [facility] 7 10:24:09 Pain in calf 670539086 Completed 12/30/2016 Peyman Healy MD [address], [place], [address], [facility] 7 10:24:07 Synovial cyst of knee 518956791 Completed 12/30/2016 Peyman Healy MD [address], [place], [address], [facility] 7 10:23:54 Lumbar sprain 096616019 Completed 12/30/2016 Peyman Healy MD [address], [place], [address], [facility] 7 10:23:49 Sprain pelvic ligament 437077976 Completed 12/30/2016 Peyman Healy MD [address], [place], [address], [facility] 7 10:23:46 Inflamma tion of sacroili ac joint 46740415 Completed 12/30/2016 Peyman Healy MD [address], [place], [address], [facility] 7 10:24:21 Anemia of pregnanc y 09435156 Completed 201512/30/2016 Peyman Healy MD [address] [facility] [address], [place], [address], [facility] 7 10:23:35 Generali zed anxiety disorder 78807604 Active 2016 Diana martines MA [facility], [facility] 7 11:53:56 Primary biliary cholangi tis 33936116 Active 2019 BRODY Roberts [address], [place], [address], [facility] 0 10:57:26 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 no other organs. nephrect sandoval 09/2019 Removal Reason: radical nephrect sandoval 09/2019 Lynda Papo ortega [facility] 3 15:23:27 Neoplasm of left kidney 18473062269 120727 Completed 202004/27/2023 Removal Reason: radical nephrect sandoval 09/2019 Lynda Papo ortega [facility] 3 15:23:00 Low back pain 477841327 Active 2021 RECORDED 05/13/20 12 3:41PM BY ALLA BAUM MA, ANNOTATI ON/ADDMOHAN [address] [address], [place], [address], [facility] 2 10:36:13 Plantar fasciiti s of right foot 06962892665 905983 Active 2021 Brady Sanchez [address] [address], [place], [address], [facility] 2 13:53:56 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 18749390038 629093 Active 2021 Brady Sanchez, [address] [address], [place], [address], [facility] 2 13:54:13 Hyperlip idemia 71903625 Active 2021 Brady Sanchez [address] [address], [place], [address], [facility] 2 14:05:27 Fatigue 93617661 Active 2021 Brady Sanchez [address] [address], [place], [address], [facility] 2 14:05:52 Impaired fasting glycemia 720226430 Active 2021 Brady Sanchez [address], [place], [address], [facility] 2 14:05:59 Pain of left hip joint 00705901287 9100 Active 2021 Brady Sanchez, [address], [place], [address], [facility] 2 11:29:28 Obesity 794104146 Active 2022 Lynda ortega, [facility] 3 15:21:38 Cough 19832350 Active 2023 IMPRESSI ON: PRODUCTI VE COUGH X 10D, + TOBACCO, WILL TX, ADVISE TO STOP SMOKING, RTC IF PERSISTE NT OR WORSENIN G SYMPTOMS .; RECORDED 10/05/19 14 2:26PM BY DIANA NUNEZ MA, ANNOTATI ON/ADDEN DUM Brady Sanchez [address] [address], [place], [address], [facility] 4 11:48:33 COVID-19 358211693 Active 2023 Brady Sanchez [address], [place], [address], [facility] 4 12:11:32 Fever 066450609 Active 2023 Brady Sanchez [facility] [address] [place] [address], [place], [address], [facility] 4 12:11:36 Vitamin D deficien cy 49143240 Active 2023 Brady Sanchez [facility] [address] [place] [address] [address], [place], [address], [facility] 4 15:27:42 Acute right otitis media 819996168 Active 2024 Brady Sanchez [address], [place], [address], [facility] 11:21:54 Problem Notes None recorded. Procedures Surgical History Date Name Laterality Status Provider Name and Address Organization Details Recorded Time 08/30/19 24 Most Recent Mammogram completed Emili Martinez [facility] 08/31/2023 10:24:02 07/14/19 23 Mammogram Screening completed Danielle Rodriguez [facility] 07/14/2022 16:24:36 05/05/20 22 fasciotomy of foot completed BRODY Roberts [address] [facility] [address], [place], [address], [facility] 04/27/2023 09:18:39 09/07/19 20 radical nephrectomy completed Greta Glasgow [facility] 09/11/2019 15:28:04 09/07/19 20 Cancer Surgery completed Sherlyn Brown MA [facility] 03/27/2021 08:40:34 07/14/19 17 Date of Last Colonoscopy completed Diana slaughter MA [facility] 12/30/2016 10:13:20 07/14/19 17 Colonoscopy completed BRODY Roberts [address] [facility] [address], [place], [address], [facility] 02/14/2019 15:53:00 02/11/20 07 delivery completed Diana slaughter MA [facility] 02/14/2019 15:32:01 01/14/20 04 Caesarean Section completed Diana slaughter MA [facility] 02/14/2019 15:31:51 09/03/19 00 Tonsillectomy completed Sherlyn Brown MA [facility] 03/27/2021 08:40:34 Tubal Ligation completed Diana slaughter MA [facility] 11/21/2014 14:01:10 Tonsillectomy completed Sherlyn Brown, MA [facility] 03/27/2021 08:40:34 Imaging Results Imaging Date Name Status LastModified by Organization Details LastModified Time 04/27/2023 electrocardiogram completed [email or web address] In-Offi ce Order Internal Use Only DO Not Attach Compendium DO Not Attach Compendium, Do Not Delete/merge, [id number] 04/27/2023 09:49:11 04/27/2023 electrocardiogram completed [email or web address] In-Offi ce Order Internal Use Only DO Not Attach Compendium DO Not Attach Compendium, Do Not Delete/merge, [id number] 04/27/2023 09:39:42 07/13/2023 XR, chest completed [facility] (Imaging) [address] [place], [address], 07/20/2023 08:53:36 08/24/2023 US, doppler, venous completed [address] (Medical Records) [address] [place], [address], 08/25/2023 08:42:01 08/30/2023 MAMMO, screening, digital, bilateral completed [address] (Outpt Imaging) [address] [place], [address], 08/31/2023 10:24:05 11/02/2023 CT, abdomen + pelvis, w/ contrast completed [facility] [address] [place], [address], 11/03/2023 13:36:14 12/17/2023 XR, chest completed [facility] (Medical Records) [address] [place], [address], 12/17/2023 14:14:49 12/17/2023 CT, abdomen + pelvis, w/o contrast completed [address] (Medical Records) [address] [place], [address], 12/20/2023 08:52:21 08/17/2024 Foot and Ankle outcome score completed [email or web address] Information not available 08/31/2024 11:08:15 09/06/2024 imaging/diagnostic result active [email or web address] [facility] [address] [place], [address], 09/06/2024 13:20:31 Procedure Notes None recorded. Medical Equipment None Reported. Allergies Allergen ID Allergen Name Allergen Category Reaction Reaction Severity Criticality Documentation Date Start Date Code Code System Note Provider Name and Address Organization Details Recorded Time amoxicill in medicatio n other Not available Not available 10/18/2014 723 RxNorm cause s yeast infec tion in the [facility] 5 12:49:17 2838 Keflex medicatio n itching Not available Not available 01/16/20142013 47099 7 RxNorm [facility] 5 12:49:17 2839 Product containin g penicilli n (product) medicatio n Not available Not available Not available 01/16/20142013 56520 8001 SNOMED REACT ION: AMOX, CAUSE S YEAST INFEC TIONS ; COMME NT: RECOR DED 10/04 2:30P M BY SRINIVAS THOMAS MA, OFFIC E VISIT ; Peyman Healy MD [address] [facility] [address], [place], [address], [facility] [place] 5 16:56:28 79122 Non-stero idal anti-infl ammatory agent (product) medicatio n other moderate low 04/21/2022 00780 005 SNOMED 1 BRODY Schrader [address] [facility] [address], [place], [address], [facility] [place] 2 13:55:13 Medications Name Sig Start Date [...] completed RECORDED 02/23/20 13 11:00AM BY BABITA ANDERSON, JACIEL, MEDICATI ON AUTO-PACO CTIVATIO N; Not Available [...] Updated DateTime 3 158.75 cm 34 kg/m2 05289.9 6 g 64.99 /min 99 % 99 % 98.4 [degF] 136 mm[Hg] 84 mm[Hg] Estefania Anguiano [facility] [place] 3 10:32:43 Date Recorded Body height Body mass index (BMI) Body weight Heart rate Oxygen saturation Oxygen saturation in Arterial blood by Pulse oximetry Body temperature Systolic blood pressure Diastolic blood pressure Provider Name and Address Organization Details Last Updated DateTime 3 158.75 cm 34 kg/m2 52745.9 6 g 74 /min 98 % 98 % 98.5 [degF] 152 mm[Hg] 91 mm[Hg] Maru Sewell MA [facility] 3 08:55:13 Date Recorded Systolic blood pressure Diastolic blood pressure Provider Name and Address Organization Details Last Updated DateTime 04/27/2023 136 mm[Hg] 80 mm[Hg] Brady Sanchez, [facility] [address], [address], [facility] 04/27/2023 09:27:54 Date Recorded Body height Body mass index (BMI) Body weight Body temperature Oxygen saturation Oxygen saturation in Arterial blood by Pulse oximetry Heart rate Systolic blood pressure Diastolic blood pressure Provider Name and Address Organization Details Last Updated DateTime 4 158.75 cm 34.6 kg/m2 54652.7 4 g 98.4 [degF] 98 % 98 % 85 /min 127 mm[Hg] 85 mm[Hg] Sydnie Flores MA [facility] 4 11:28:21 Date Recorded Body height Body mass index (BMI) Body weight Heart rate Oxygen saturation Oxygen saturation in Arterial blood by Pulse oximetry Body temperature Systolic blood pressure Diastolic blood pressure Provider Name and Address Organization Details Last Updated DateTime 4 158.75 cm 34 kg/m2 89172.9 6 g 72 /min 99 % 99 % 98.2 [degF] 147 mm[Hg] 79 mm[Hg] Maru Sewell MA [facility] 4 15:21:08 Date Recorded Systolic blood pressure Diastolic blood pressure Provider Name and Address Organization Details Last Updated DateTime 05/02/2024 120 mm[Hg] 66 mm[Hg] Brady Sanchez, [facility] [address] [facility] [address] [place] [address], [address], [facility] 05/02/2024 16:01:22 Date Recorded Body height Body mass index (BMI) Body weight Heart rate Oxygen saturation Oxygen saturation in Arterial blood by Pulse oximetry Body temperature Systolic blood pressure Diastolic blood pressure Provider Name and Address Organization Details Last Updated DateTime 158.75 cm 33.7 kg/m2 96585.7 7 g 62 /min 98 % 98 % 99.1 [degF] 158 mm[Hg] 92 mm[Hg] Maru Sewell MA [facility] 10:49:03 Date Recorded Systolic blood pressure Diastolic blood pressure Provider Name and Address Organization Details Last Updated DateTime 07/06/2024 110 mm[Hg] 60 mm[Hg] Brady Sanchez, [facility] [address] [facility] [address], [place], [address], [facility] 07/06/2024 11:27:04 Social History Question Answer Notes LastModified by Organizat ion Details LastModified Time Tobacco Smoking Status Former Smoker pt quit 09/2019 Sherlyn Brown MA null, [facility] 03/26/2020 10:39:09 Do You Have An Advance [...] not available 04/23/2022 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 1-5yearssincel adriana [email or web address] Information not available 03/27/2021 Live Alone Or [...] Or Greater Than 100 Degrees Fahrenheit? No [email or web address] Information not available 03/26/2020 Are You Or Anyone In Your Household A Health Care Provider Or Emergency Responder? Yes [email or web address] Information not available 03/26/2020 To The Best Of Your Knowledge Have You Been In Close Proximity To Any Individual Who Tested Positive For COVID-19? No [email or web address] Information not available 03/26/2020 Have You Recently Traveled To A COVID-19 High Risk Area Or Gathering In The Last 10 Days? No [email or web address] Information not available 07/23/2020 What Was The [...] Carbon Monoxide Detectors In Your Home? Yes [email or web address] Information not available 03/27/2021 At What Age [...] available 10:40:59 Father Malignant tumor of lung [email or web address] Not available 03/27 08:40:16 Father Kidney disease [email or web address] Not available 03/27 08:40:16 Mother Malignant neoplasm of uterus molar pregna ncy- hyster ectomy Not available 04/23/2022 10:40:59 Mother Opioid dependence Not available 04/23 10:40:59 Mother Substance abuse [email or web address] Not available 03/27 08:40:16 Mother Seizure disorder [email or web address] Not available 03/27 08:40:16 Mother Osteoporosis [email or web address] Not vasile ilable 03/27/2021 08:40:16 Mother Disorder of thyroid gland Not available 2021 10:40:59 Brother Essential hypertension 45 possib ly Not available 04/23/2022 10:40:59 Brother Alcohol abuse [email or web address] Not available 2017 15:39:14 Brother Depressive disorder [email or web address] Not available 03/27 08:40:16 Maternal Grandfather Opioid dependence Not available 04/23 10:40:59 Unspecified Relation Substance abuse [email or web address] Not available 03/27 08:40:16 Son Allergy Not available 1 10:40:59 Medical History Condition Response Coronary Artery Disease N Other N Gout N Kidney Stones N Blood Diseases N Hyperthyroidism N Breast Cancer N mrsa exposure N Hypothyroidism N Depression N COPD N Lung Disease N Developmental or Behavioral Disorders N Defects or Inherited Disease N Breast Problem N Anesthesia Complications Y [...] Problems Y Developmental Delay N Acne N Skin Problems Y Eating Disorder N Anemia Y Constipation N Bladder Problems N Mental Illness N Ovarian Cancer N Diabetes N Bedwetting N Blood Transfusions N Seizures/Epilepsy N Heart Problems/Murmur N Tuberculosis N AIDS/HIV N Congestive Heart Failure (CHF) N Eczema N Diverticulitis N Abuse/Domestic Violence N Asthma N Allergies Y Reflux/GERD N [...] split virus, trivalent, preservative 6 completed [place] Pimentel, [facility] 12/30/2016 10:11:22 Influenza, split virus, quadrivalent, preservative 8 [facility] 10:03:42 Influenza, split virus, quadrivalent, preservative 9 [facility] 06/14/2019 09:27:56 COVID-19, mRNA, LNP-S, PF, 100 mcg/0.5mL dose or 50 mcg/0.25mL dose 0 completed [facility] 09/12/2021 10:18:38 Influenza, split virus, quadrivalent, PF 1 completed [facility] 09/12/2021 10:18:38 COVID-19, mRNA, LNP-S, PF, 100 mcg/0.5mL dose or 50 mcg/0.25mL dose 1 completed [facility] 09/12/2021 10:18:38 Influenza, split virus, quadrivalent, PF 7 completed [facility] 09/12/2021 10:18:39 Influenza, split virus, trivalent, preservative 5 [facility] 12/24/2021 10:23:35 Influenza, split virus, quadrivalent, PF 3 [facility] 07/13/2023 11:16:35 Tdap 1 completed Not Available [facility] 01/16/2014 13:38:10 Influenza, split virus, quadrivalent, PF 0 [facility] 03/26/2020 10:48:58 Tdap 1 completed Unique Melo MA null, [facility] [place] 03/27/2021 10:06:49 Influenza, split virus, quadrivalent, PF 2 completed Brady Sanchez [facility] [address], [address], [facility] [place] 04/23/2022 11:29:33 Past Encounters Encounter ID Performer Location Encounter Start Date Encounter Closed Date Diagnosis/Indication Diagnosis SNOMED-CT Code Diagnosis ICD10 Code Diagnosis Note [id number] 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 [address] [facility] [place] [address] 05/07/2009 00:00:00 [id number] 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 [address] [facility] [place] [address] 04/03/2010 00:00:00 [id number] 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 [address] [facility] [place] [address] 04/30/2010 00:00:00 [id number] 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 [address] [facility] [place] [address] 08/22/2010 00:00:00 [id number] 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 [address] [facility] [place] [address] 09/19/2010 00:00:00 [id number] 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 [address] [facility] [place] [address] 11/17/2010 00:00:00 [id number] 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 [address] [facility] [place] [address] 06/02/2011 00:00:00 [id number] 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 [address] [facility] [place] [address] 09/15/2011 00:00:00 [id number] 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 [address] [facility] [place] [address] 10/29/2011 00:00:00 [id number] 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 [address] [place], [place] [address] 11/11/2011 00:00:00 [id number] 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 [address] [place], [place] [address] 05/13/2012 00:00:00 [id number] 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 [address] [place], [place] [address] 08/31/2012 00:00:00 [id number] 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 [address] [place], [place] [address] 02/07/2013 00:00:00 [id number] 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 [address] [facility] [address] [place], [place] [address] 04/12/2013 00:00:00 [id number] 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 [address] [facility] [place], [place] [address] 08/30/2013 00:00:00 [id number] 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 [address] [facility] [place] [address] 10/04/2013 00:00:00 [id number] Diana thomas MA Main Office [address] [facility] [address] [place] [address] 03/27/2014 09:46:56 03/27/2014 10:49:27 Wheezing symptom 539536463 Tobacco de pendence syndrome 81383473 414388 Carol Melo MA Main Office [address] [place] [address] 09/14/2014 14:46:39 09/14/2014 15:17:09 Acute sinusitis 28559728 Tobacco de pendence syndrome 48978294 [id number] Main Office [address] [place] [address] 10/18/2014 12:40:42 10/18/2014 13:27:05 Acute asthma 458800581 Acute zhao rgic reaction 316456693 Tobacco de pendence syndrome 26235707 486171 Main Office [address] [facility] [address] [place] [address] 11/21/2014 13:28:44 11/21/2014 14:47:30 Adult health examination 685427486 Hyperlipidemia 31337848 Fatigue 51251755 Tobacco de pendence syndrome 24146826 Irritable bowel syndrome 60938186 Screening for malignant neoplasm of breast 546647839 Screening for malignant neoplasm of cervix 755506662 Body mass index 25-29 - overweight 554315359 899558 Isaac Masters Main Office [address] [address] [place] [address] 12/29/2014 09:25:24 12/29/2014 09:50:58 Acute pharyngitis 400184303 probable viral infection; no role for abx. Continue with symptomati c treatment. [id number] Peyman Healy MD Main Office [address] [address] [place] [address] 04/24/2015 13:09:18 04/24/2015 15:20:58 Acute sinusitis 72202838 J01.90 Anxiety state 084100476 F41.1 [id number] Peyman Healy MD Main Office [address] [place] [address] [place] [address] 06/05/2015 14:02:13 06/05/2015 15:35:44 Anxiety state 150411467 F41.1 Pain in calf 291902245 M 79.669 [id number] Peyman Healy MD Main Office [facility] [address] [address] [place] [address] 07/23/2015 10:47:52 07/23/2015 12:10:04 Lumbar sprain 819626169 S33.9XXA L. lumbar sparin acute. Can not tolerate NSAIDs. Will start Prednisone taper , Flexeril at night only and Tramadil for pain. Moist heat applicatio ns, gently back stretches. Stay back from work for few days. Sprain pel elana ligament 930024779 S33.9XXA [id number] Peyman Healy MD Main Office [address] [address] [place] [address] 12/25/2015 13:17:42 12/25/2015 14:58:37 Anxiety state 761512892 F41.1 Tobacco de pendence syndrome 55362497 F17.290 Reviewed motivation s for smoking cessation. Advised about benefits of stopping smoking. Hyperlipidemia 40308667 E78.5 Adult heal th examination 584087305 Z00.00 Fatigue 78346692 R53.83 Body mass index 25-29 - overweight 100239972 Z68.29 Inflammati on of sacroiliac joint 34519026 M46.1 [id number] Peyman Healy MD Main Office [address] [address] [place] [address] 03/18/2016 09:15:07 03/18/2016 10:32:41 Irritable bowel syndrome 32354748 K58.9 Diarrhea 46687648 R19.7 Knee pain 37329458 M25.5 61 Medial joint line tenderness with positive Malathi test. Rule out meniscus injury [id number] Barbara Shaylee dumont Main Office [address] [address] [place] [address] 08/07/2016 10:37:00 08/07/2016 11:16:42 Upper respiratory infection 58932638 J06.9 PT. will use Mucinex DM or D BID for congestion and cough , nasal saline solution BID and FLonase she has at home qd. Rest and fluids. PT. will call office next week if worsening of symptoms , fever, colored secretions or facial pain. [id number] Peyman Healy MD Main Office [address] [address] [place] [address] 12/30/2016 10:04:42 12/30/2016 11:06:58 Adult health examination 551942561 Z00.00 Tobacco de pendence syndrome 37420136 F17.290 Reviewed motivation s for smoking cessation. Advised about benefits of stopping smoking. Elevated blood-pressure reading without diagnosis of hypertension 511226268 R03.0 Had elevated BP under propafol for colonoscop y Anxiety state 356799075 F41.1 STable on medication Hyperlipidemia 51550388 E78.5 Fatigue 19190660 R53.83 Hyperhidrosis 237492451 R61 Nasal vestibulitis 71292 000 J34.89 Body mass index 25-29 - overweight 693956109 E66.3 Z68.25 [id number] Sim Garcia MD Main Office [address] [address] [place] [address] 09/15/2017 13:21:04 09/15/2017 14:12:54 Acute sinusitis 47006769 J01.90 pt requested diflucan - rec add probiotic supp qd soniya for her IBS c/o - hopefully not require levsin as much. also advised pt could use bactroban in nares to help nasal lining sxs as well for a few days [id number] Peyman Healy MD Main Office [address] [facility] [address] [place] [address] 02/11/2018 15:00:11 02/11/2018 16:22:57 Adult health examination 817644439 Z00.00 Tobacco de pendence syndrome 16637427 F17.290 Reviewed motivation s for smoking cessation. Advised about benefits of stopping smoking. Generalize d anxiety disorder 03902429 F41.1 Irritable bowel syndrome 77409766 K58.9 Body mass index 25-29 - overweight 135592139 E66.3 Z68.25 Hyperlipidemia 41181739 E78.5 Fatigue 56586205 R53.83 Greater tr ochanteric pain syndrome 8583086 M70.62 Neck pain 82102997 M54.2 Inflammati on of sacroiliac joint 41011624 M46.1 132197 Lynda Barros Main Office [address] [address] [place] [address] 04/19/2018 10:32:33 04/19/2018 12:00:32 Needs influenza immunization 378570011 Z23 had flu shot last week -- flu shot NOT given today Cough 08449226 R05 suspect early pna - will check cxr and give abx proactivel y Infective pneumonia 3123 23925 J18.9 rec probiotics while on abx, also rec proair and peace -- see below [id number] Sim Garcia MD Main Office [address] [facility] [address] [place] [address] 09/02/2018 09:42:20 09/02/2018 10:35:38 Acute pharyngitis 518045735 J02.9 Based on risk score and recent exposure will cover for strep. D/C if culture is negative. Supportive /symptomat ic tx advised in meantime. Call inb/worse or if new symptoms develop. [id number] BRODY Roberts Main Office [address] [facility] [address] [place] [address] 02/14/2019 15:20:06 02/14/2019 16:13:10 Adult health examination 364387793 Z00.00 HM UTD, will check blood work. Tobacco de pendence syndrome 54061178 F17.290 Reviewed present motivation s for smoking cessation. Patient reports that being ready to attempt smoking cessation. Discussed options for support. Hyperlipidemia 43748021 E78.5 Family his tory of Thyroid disorder 268598894 Z83.49 [id number] Conrado Jiang PA-C Main Office [address] [facility] [address] [place] [address] 06/14/2019 09:04:31 06/14/2019 10:28:17 Pain in left foot 7320210559 81887 M79.672 pt c/o pain at top of [...] above pain encouraged pt to f/u c pricing associate as well - cont orthotics as per pricing associate [id number] Melina Mckay Main Office [address] [facility] [address] [place] [address] 08/28/2019 15:25:19 08/28/2019 16:54:55 Acute pharyngitis 684192788 J02.9 steam, salt water gargles several times a day, otc pain reliever as needed. Call if sx persist, regular TC sent out Eustachian tube disorder 57383037 H69.93 gargles, hydration try flonase once a day, call if ear pain persists; no evidence of otitis media today. [id number] BRODY Roberts Main Office [address]10 [facility] [address] [place] [address] 03/26/2020 10:23:16 03/26/2020 11:21:36 Adult health examination 857071260 Z00.00 HM UTD, will check blood work. Needs infl uenza immunization 338351074 Z23 Elevated blood-pressure reading without diagnosis of hypertension 390903968 R03.0 Irritable bowel syndrome 83332952 K58.9 Body mass index 25-29 - overweight 290908126 Z68.28 E66.3 Screening for cardiovascular system disease 558177545 Z13.6 Major depr ession single episode, in partial remission 74031352 F32.4 [id number] Melina Mckay Main Office [address] [facility] [address] [place] [address] 05/27/2020 10:30:41 05/27/2020 11:38:57 Strain of muscle of right shoulder 7944759702 4039293 S46.911A check xray of shoulder, rest, no sling, keep gentle ROM if xray negative, can use OTC pain reliever, Start PT belen. If worsening to call. Out of work for 1 week, if needs more time will call Use ice x 24-48 hours, then ice/heat. Inflammati on of sacroiliac joint 14601796 M46.1 Rest, stretching , change position frequently , will call if any worsening sx. [id number] BRODY Roberts Main Office [address] [address] [place] [address] 07/23/2020 14:49:33 07/23/2020 15:25:15 Otalgia 85844788 H92.02 Left ear pain but it hurts if she swallows, turns her head, yawns ect. suspect related to lymph node. Cervical lymphadenopathy 260380543 R59.0 left anterior cervical node tenderness , swelling. causes ear pain. Exposure t o viral disease 2590125511 55820 Z03.818 had temp 99.5 today. has had chills/ feeling hot and cold, very fatigued. she did have moderna covid vaccine 07/03 and had side effects to that which have resolved. 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 Plantar fa sciitis of left foot 7994333748 5773836 M72.2 Patient has tried exercises and Boot at night with no improvemen t.Will refer to podiatry to consider injections . Patient is establishe d with [facility] and I advised her to call for apt. Pain in left foot 960639 4861 58457 M79.672 DDx include neuroma, nerve entrapment .Patient [...] she has. Patient is establishe d with [facility] and I advised her to call.No xray at this time as she does not meet [place] criteria for xray. [id number] Lynda Barros Telehealt [facility] 3640 [facility] 207 [facility] [place] [address] 10/02/2020 11:39:51 10/02/2020 15:16:28 Diarrhea 93294352 R19.7 has resolved but nausea persists. Abdominal pain 93577207 R10.9 Exposure t o viral disease 0139757172 66121 Z03.818 Nausea 654894215 R11.0 use as needed Primary bi liary cholangitis 79470299 K74.3 on ursodiol taking med as directed. Renal cell carcinoma [address] in October. [id number] BRODY Roberts Main Office [address] [facility] [address] [facility] [place] [address] 03/27/2021 08:31:51 03/27/2021 09:24:31 Adult health examination 282207461 Z00.00 HM UTD, has bloodwork regularly for her kidney/ ct scans Elevated blood-pressure reading without diagnosis of hypertension 319750256 R03.0 BP normal manually Renal cell carcinoma 702 191954 C64.9 Followed by urology, 1 kidney Primary bi liary cholangitis 27690461 K74.3 on ursodiol taking med as directed. Generalize d anxiety disorder 91735766 F41.1 on sertraline , considerin g weaning off. she will go to 25mg for now through the winter Administra tion of viral vaccine 75097596 Z23 [id number] Livan Fatima MD Main Office [address] [facility] [address] [facility] [place] [address] 03/31/2021 13:28:41 03/31/2021 14:16:10 Cellulitis of left upper limb 0797338353 4793304 L03.114 NSAIDs for pain and swelling and ice. May not be an infection but instead may be a local reaction to the immunizati on. She will call if she develops diarrhea because of her h/o c. dif. [id number] BRODY Roberts Main Office [address] [facility] [address] [facility] [place] [address] 09/12/2021 10:16:27 09/12/2021 10:46:05 Low back pain 821866038 M54.50 low back pain, will tx with prednisone burst and flexeril as needed. no driving or alcohol with med. Heat to area as needed. stretching as tolerated. if sx persist will need imaging. Call or return for worsening or concerns. History of malignant neoplasm of kidney 266080765 Z85.528 renal cell carcinoma, left kidney. nephrectom y. Primary bi liary cholangitis 38194417 K74.3 on ursodiol taking med as directed. 193339 Lynda Barros Telehealt h 36[address] [facility] [address] [place] [address] 12/24/2021 09:23:33 12/24/2021 11:19:34 Cough 65544652 R05.1 Pneumonia 969439688 J18. 9 will send over Zpak to [...] no role for CXR at this time [id number] Brady Sanchez [facility] Main Office [address] [facility] [address] [facility] [place] [address] 04/21/2022 13:10:00 04/21/2022 14:08:51 Pre-surgery evaluation 782724272 Z01.818 Having right topaz plantar fasciotomy with [...] surgery as scheduled. Renal cell carcinoma 702 863291 C64.9 Followed by urology, 1 kidney Elevated blood-pressure reading without diagnosis of hypertension 467426437 R03.0 BP normal manually Primary bi liary cholangitis 51826535 K74.3 on ursodiol taking med as directed. Fibromatos is of plantar fascia of right foot 9086985620 2574580 M72.2 having fasciotomy Hyperlipidemia 72681988 E78.5 Fatigue 66658767 R53.83 Impaired f asting glycemia 892450108 R73.01 Generalize d anxiety disorder 63882817 F41.1 she will go to 25mg daily x 2 weeks. [id number] Brady [facility] Main Office [address] [facility] [address] [facility] [place] [address] 04/23/2022 10:39:54 04/23/2022 11:22:36 Adult health examination 061637243 Z00.00 HM due for mammo and pap- she will schedule, colonoscop y due in 2026. Flu shot today. Bloodwork was done this morning, pending results. Needs infl uenza immunization 103765148 Z23 Fibromatos is of plantar fascia of right foot 8223030195 4784846 M72.2 having fasciotomy Primary bi liary cholangitis 57673169 K74.3 on ursodiol taking med as directed. Renal cell carcinoma 702 455813 C64.9 Followed by urology, 1 kidney Generalize d anxiety disorder 03924146 F41.1 Continue sertraline 25mg daily x 2 weeks, then cut tab in half and take 12.5mg daily x 2 weeks.then will take 6.25mg daily x 1 week then stop medication .If any trouble stopping med please call/ return Pain of le ft hip joint 2978932140 62146 M25.552 [id number] Susan Jiang PA-C Main Office [address] [address] 03/16/2023 10:12:04 03/16/2023 10:58:48 Viral upper respiratory tract infection 066707479 J06.9 Pt. is advised to increase hydration and rest, add otc decongesta nts such as Delsym, diphenhydr amine. Nasal saline or saline rinse. [id number] Lynda Barros Main Office [address] [address] 04/27/2023 08:48:38 04/27/2023 09:46:23 Adult health examination 122242060 Z00.00 HM- UTD, pap, mammo and colo UTD. Fibromatos is of plantar fascia of right foot 1491940340 0778486 M72.2 had fasciotomy last May, still has pain and now has chronic tendinitis . Primary bi liary cholangitis 43392380 K74.3 on ursodiol taking med as directed. Generalize d anxiety disorder 67628771 F41.1 Continue sertraline 25mg daily Hyperlipidemia 30177182 E78.5 Impaired f asting glycemia 121662873 R73.01 Fatigue 75650526 R53.83 Body mass index 30+ - obesity 165990185 Z68.34 Elevated blood-pressure reading without diagnosis of hypertension 398792601 R03.0 BP manually 136/80, thi is elevated for her and was elevated at her last visit. She will work on cutting back on sodium, drinking more water and starting to walk again. F/U in 1 month for recheck. History of malignant neoplasm of kidney 800593209 Z85.528 Followed by urology, 1 kidney, had CT scan in October Obesity 553459496 E66.9 [id number] Brady Sanchez [facility] Main Office [address] [facility] [address] [place] [address] 07/13/2023 11:12:57 07/13/2023 11:59:34 Fever 449600108 R50.9 + covid, continue tylenol or nyquil/ dayquil Cough 12777736 R05.9 COVID-19 341510287 U07.1 Covid positive in office, this is [...] any resp distress, severe or worsening sx. [id number] Brady Sanchez [facility] Main Office [address] [facility] [address] [place] [address] 05/02/2024 15:16:10 05/02/2024 15:45:05 Adult health examination 109244283 Z00.00 HM- UTD, pap, mammo and colo UTD. Primary bi liary cholangitis 41264034 K74.3 on ursodiol taking med as directed. History of malignant neoplasm of kidney 178339083 Z85.528 Followed by urology, 1 kidney, had CT scan in October- all good. Generalize d anxiety disorder 00370315 F41.1 Continue sertraline 25mg daily Hyperlipidemia 64399752 E78.5 Impaired f asting glycemia 710262324 R73.01 Fatigue 83921210 R53.83 Elevated blood-pressure reading without diagnosis of hypertension 236464967 R03.0 BP manually 120/66 Obesity 827710689 E66.9 Body mass index 30+ - obesity 989428070 Z68.34 Vitamin D deficiency 347 52949 E55.9 [id number] BRODY Roberts Main Office [address] [address] 07/06/2024 10:28:25 07/06/2024 11:31:13 Cough 33580377 R05.9 declines cough med currently, neg flu and covid. +OM Acute righ t otitis media 959867289 H66.91 Hydration, rest, tylenol as needed, tea [...] Name 03/16/2023 1 [employer] [place] [employer] ([place] [id number] Tere A Vernon [id number] [address] [place] 04/27/2023 1 [employer] [place] [employer] [id number] Tere A [place] [id number] 84 [place] 07/13/2023 1 [employer] [place] [employer] [place] [id number] Tere A Vernon [id number] 84 [place] 05/02/2024 1 [employer] [place] [employer] [place] [id number] Tere A Vernon [id number] 84 [place] 07/06/2024 1 [employer] [place] [employer] [place] 54418 Tere A Vernon [id number] 84 Tere A [place] Notes Date Note Type Note Provider Name and Address Organization Details Recorded Time 03/16/2023 text/html 48 year old fema le c/o 3 day onset of sinus congestion, fatigue, body aches and headache. Tested neg for COVID. Pt. denies fever or chills. NO cough. C/o ear fullness. NO sore throat reported, but postnasal secretions. NO facial pain. Susan Jiang PA-C [address] [place], [address], [facility] 03/16/2023 12:05:23 04/27/2023 text/html Generic HPI TemplateReported bypatient.Notes:Presen ts for PE,No concerns but BP is high. No headaches, sometimes does get chest discomfort at random times, no palpitationsShe did stop sertraline completely, felt angry and was crying all the time, re-started 25mg and feeling better overall, not crying all the time.No period since FebruaryEating out more, cut out afternoon coffee, stress Lynda ortega, [facility] 04/27/2023 15:30:51 07/13/2023 text/html Generic HPI TemplateReported bypatient.Notes:Sx started wednesday- body aches, couldn't sleep, chills, fever, congestion, couhg with production, slight SOB with activity, no N/V/D, no sore throat, ear pain, no headache. neg covid- this morning.Neg flu test here.Taking nyquil and dayquil with some relief. - feels like chest hurts. BRODY Roberts [address] [address], [place], [address], [facility] 07/13/2023 12:14:09 05/02/2024 text/html Generic HPI TemplateReported bypatient.Notes:Presen ts for PE,No concerns but BP is high. No headaches, sometimes does get chest discomfort at random times, no palpitationshas lost 4 lbs and 13 inches since January. is having hot flashes, night sweats, mood changes BRODY Roberts [address] [address], [place], [address], [facility] 05/02/2024 16:02:35 07/06/2024 text/html Generic HPI TemplateReported bypatient.Notes:Sx started Wednesday- body aches, chills, low grade temp, cough, dry for now but feels congestion, nasal congestion- yellow, sinus pressure/ pain, teeth pain, ear pain and blocked- bilateral, no N/V/D.No sick contacts Brady Sanchez [facility] [address] [address], [place], [address], [facility] 07/06/2024 12:04:20 OBGyn Episode No OBEpisode recorded.
--- OUTSIDE RECORDS SUMMARY | 2024-09-06 13:24 | XMS_ITS | Clinical Summary ---
Author Organization [address] Address [address] [place] [address] Phone Care Team Providers Care Shower Screen Installer Name Role Phone Noah Sanchez Primary Care Provider [phone] Allergies Active Allergy Reactions Criticality Noted Date [...] Care Team Description 06/16/2024 Telephone Gastroenterology - [address] [place] [phone] Sandra Simms MA 06/08/2024 8:15 AM EST Office Visit Gastroenterology - [address] [place] [address] Roseline Leone MD Primary biliary cholangitis (CMS/HCC) (Primary Dx) from Last 3 Months Surgical History Surgery [...] Last Done Comments Breast Cancer Screening 1975 Hepatitis B Vaccines (1 of 3 - 19+ 3-dose series) 1994 Pneumococcal Vaccine: Pediatrics (0 to 5 Years) and At-Risk Patients (6 to 64 Years) (1 of 2 - PCV) 1994 Cervical Cancer Screening: Pap Smear 02/02/1996 [...] patient's age to complete this topic Meningococcal B Vacine Aged Out No lo nger eligible based on patient's age to complete [...] al Result from Last 3 Months Insurance [place] aroundtheway [facility] Care Teams Shower Screen Installer Relationship Specialty Start Date End Date Noah Sanchez PA [address] [address] PCP - General Physician Assistant Plant Manager 04/28/24
== END 2024-09-06 11:06 | disposition home or self-care (01) ==
LOC: HO.MAMMO 11:05
PROVIDERS: Absent Provider Obstetrics & Gynecology; PCP Registered Nurse; Visit Provider Registered Nurse
DX: Z12.31 Encounter for screening mammogram for malignant neoplasm of breast (principal)
CPT/HCPCS: 77063; 77067

== ENCOUNTER 2024-10-20 12:04 | Outpatient (REF) | payer OTHER, SELFPAY ==
--- OUTSIDE RECORDS SUMMARY | 2024-10-20 12:57 | XMS_ITS | Clinical Summary ---
Author Organization [facility] [address] [facility] Address [address] [place] [address] Phone Care Team Providers Care Ballast Cleaning Operator Name Role Phone Noah Sanchez Primary Care Provider [phone] Allergies Active Allergy Reactions Criticality Noted Date [...] Take 1 tablet by mouth. 0 Active Surgical History Surgery Date Site/Laterality Comments NEPHRECTOMY Left SECTION x 2 COLONOSCOPY W/ BIOPSIES 07/14/2016 for diarrhea - nl bx TONSILLECTOMY Medical History Medical History Date Comments Primary biliary cholangitis ([facility] V24, [facility] V28) 06/2019 Alk phos 290 +AMA 157.5 H/O [...] age to complete this topic Meningococcal B Vaccine Aged Out No l onger eligible based on patient's age to complete this topic RSV Immunization Patients Under 20 months Aged Out No longer eligible based on patient's age to complete this topic Varicella Vaccines Aged Out No longer eligible based on patient's age to complete this topic Insurance [employer] [facility] [address] Care Teams Ballast Cleaning Operator Relationship Specialty Start Date End Date Noah Sanchez PA [address] [address] PCP - General Physician Molding And Trim Installer 04/28/24
--- OUTSIDE RECORDS SUMMARY | 2024-10-20 12:57 | XMS_ITS | Patient Health Record ---
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 . [...] . 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 [...] Insured Coverage Start Date Coverage End Date [facility] [address] [facility] [place] [id number] [phone] [id number] Tere Junior Self - patient is the insured Medical (General) History Medical History History ICD Code Anxiety Back,Hip,and Knee pain Chicken pox keloids Psoriasis/eczema Raynauds syndrome Sciatica Anemia chronic sinusitis kidney cancer covid-19 Surgical History Surgery Date(Month/Year) Cysts removed 1980s Tonsillectomy 1998 01/2004, 03/2007 tubal ligation 2011 kidney surgery - left kidney removed 11/2020 [place] plantar fasciotomy right 2
--- OUTSIDE RECORDS SUMMARY | 2024-10-20 12:58 | XMS_ITS | Data Portability ---
Author Organization [facility], Main Office Address [address] [facility] [place] [address] Care Team Providers Care Radiation Officer Name Role Phone LAURA NAIK Hardwood Floor Finisher VALERIO NIETO Wood Machine Carver [phone] GILMER MARTINO Bag Filler Machine Operator [phone] ODILIA DOYLE Urologist TRESA BERRY Urologist ALLAN DE OLIVEIRA Primary Care Provider [phone] Assessment No assessment recorded. Plan of Treatment Reminders Order Date Submit Date Provider Last Modified By Organization Details Last Modified Time Details Appointments None recorde d. Lab rapid flu (A+B) 2024 025 [place] In-Office Order, Internal Use Only DO Not Attach Compendium DO Not Attach Compendium, Do Not Delete/merge, [id number] 5 11:16:34 rapid SARS CoV 2 Ag, QL IA, respira tory specime n 2024 025 [place] In-Office Order, Internal Use Only DO Not Attach Compendium DO Not Attach Compendium, Do Not Delete/merge, [id number] 5 11:09:10 CMP, serum or plasma 2023 024 [facility] (Lab), [address] [place] [address], [address], 4 11:32:57 lipid panel, serum 2023 024 [facility] (Lab), [address] [place] [address], [address], 4 11:32:57 TSH, serum or plasma 2023 [facility] (Lab), [address] [place] [address], [address], 4 15:28:53 T4, free, serum 2023 [facility] (Lab), [address] [place] [address], [address], 4 15:28:53 HbA1c (hemogl obin A1c), blood 2023 [facility] (Lab), [address] [place] [address], [address], 4 15:28:52 vitamin D, 25-hydr oxy, total, serum 2023 024 [email or web address] [facility], [address], [place], [address], 5 09:12:11 CBC w/ auto diff 2023 024 [facility] (Lab), [address] [place] [address], [address], 4 15:28:53 rapid flu (A+B) 2023 024 [place] In-Office Order, Internal Use Only DO Not Attach Compendium DO Not Attach Compendium, Do Not Delete/merge, [id number] 4 11:40:33 rapid SARS CoV 2 Ag, QL IA, respira tory specime n 2023 024 [place] In-Office Order, Internal Use Only DO Not Attach Compendium DO Not Attach Compendium, Do Not Delete/merge, [id number] 4 12:02:21 CMP, serum or plasma 2022 023 [facility] (Lab), [address] [place], [address], 3 11:26:05 lipid panel, serum 2022 023 [facility] (Lab), [address] [place], [address], 3 11:26:06 TSH, serum or plasma 2022 023 [facility] (Lab), [address] [place], [address], 3 11:55:36 T4, free, serum 2022 023 [facility] (Lab), [address] [place], [address], 3 09:18:01 HbA1c (hemogl obin A1c), blood 2022 023 [facility] (Lab), [address] [place], [address], 3 09:18:01 CBC w/ auto diff 2022 023 [facility] (Lab), [address] [place], [address], 3 09:18:01 Referral None recorde d. Procedures None recorde d. Surgeries None recorde d. Imaging XR, chest - cough, fever, chills, chest pain, r/o PNA 2023 024 [facility] (Imaging), [address] [place], [address], 4 13:39:20 electro cardiog bettye 2022 023 [email or web address] In-Office Order, Internal Use Only DO Not Attach Compendium DO Not Attach Compendium, Do Not Delete/merge, [id number] 09:46:23 Medication Orders clarith romycin 500 mg tablet 2024 025 [facility]/Pharmacy #[id number], [address] [place], [address], 5 11:24:04 sertral ine 25 mg tablet 2023 024 [facility]acy #[id number], [address] [place], [address], 15:27:20 Patient TargetsNo targets recorded. Patient Instructions Encounter Date Encounter Id Patient Instructions Last Modified By Organization Details Last Modified Time 03/16/2023 [id number] viral respirator y infection: care instructions [email or web address] Not available 03/16/2023 12:05:08 04/27/2023 [id number] dash diet: care instructions [email or web address] Not available 04/27/2023 09:52:40 high blood pressure: care instructions [email or web address] Not available 04/27/2023 09:52:41 low sodium diet (2,000 milligram): care instructions [email or web address] Not available 04/27/2023 09:52:40 starting a weigh t loss plan: care instructions [email or web address] Not available 04/27/2023 15:30:46 To call or retur n for worsening or concerns [email or web address] Not available 04/27/2023 09:15:56 07/13/2023 [id number] things to do when you have covid-19 jthabet Not available 07/13/2023 12:12:37 coronavirus (covid-19): care instructions jthabet Not available 07/13/2023 12:12:37 To call or retur n for worsening or concerns jthabet Not available 07/13/2023 12:13:59 05/02/2024 [id number] dash diet: care instructions [email or web address] Not available 05/02/2024 15:27:17 high blood pressure: care instructions [email or web address] Not available 05/02/2024 15:27:17 low sodium diet (2,000 milligram): care instructions jthabet Not available 05/02/2024 15:27:17 starting a weigh t loss plan: care instructions [email or web address] Not available 05/02/2024 15:27:16 To call or retur n for worsening or concerns [email or web address] Not available 05/02/2024 15:32:51 07/06/2024 [id number] To call or retur n for worsening [...] DO Not Attach Compendium, Do Not Delete/merge, [id number] 07/13/2023 11:48:22 07/13/19 24 07/13/2023 rapid flu (A+B) Flu A negati ve Not Available In-Office Order Internal Use Only DO Not Attach Compendium DO Not Attach Compendium, Do Not Delete/merge, [id number] 07/13/2023 11:21:58 07/13/19 24 07/13/2023 rapid flu (A+B) Flu B negati ve Not Available In-Office Order Internal Use Only DO Not Attach Compendium DO Not Attach Compendium, Do Not Delete/merge, [id number] 07/13/2023 11:21:58 07/06/19 25 07/06/2024 rapid flu (A+B) Flu A negati ve Not Available In-Office Order Internal Use Only DO Not Attach Compendium DO Not Attach Compendium, Do Not Delete/merge, [id number] 07/06/2024 10:50:01 07/06/19 25 07/06/2024 rapid flu (A+B) Flu B negati ve Not Available In-Office Order Internal Use Only DO Not Attach Compendium DO Not Attach Compendium, Do Not Delete/merge, [id number] 07/06/2024 10:50:01 07/06/19 25 07/06/2024 rapid SARS CoV 2 Ag, QL IA, respi rator y speci men RAPID SARS COV 2 negati ve Not Available In-Office Order Internal Use Only DO Not Attach Compendium DO Not Attach Compendium, Do Not Delete/merge, [id number] 07/06/2024 10:50:14 04/27/2004/27/2023 shelia johnson am No observ ation record ed. [email or web address] In-Office Order Internal Use Only DO Not Attach Compendium DO Not Attach Compendium, Do Not Delete/merge, [id number] 04/27/2023 09:49:11 04/27/20 elect idalmis keatinggr am No observ ation record ed. [email or web address] In-Office Order Internal Use Only DO Not Attach Compendium DO Not Attach Compendium, Do Not Delete/merge, [id number] 04/27/2023 09:39:42 07/13/1907/13/2023 XR, chest No observ ation record ed. [facility] (Imaging) [address] [place], [address], 07/20/2023 08:53:36 08/24/19 24 08/24/2023 US, doppl er, venou s No observ ation record ed. [email or web address] (Medical Records) [address] [place], [address], 08/25/2023 08:42:01 08/30/19 24 08/30/2023 MAMMO , [...] Lay letter mailed to bert walker WSN: [id number] Orderi ng Physic yves: Ian Miranda Dictat ed By: Leo Villaseñor MD Dictat ed Date/T sha: 4:38 pm Review ed By: Leo Villaseñor MD Signed By: Leo Villaseñor MD Signed Date/T sha: 4:38 pm Transc ribed By: CSB Transc riptio n Date/T sha: 1:13 pm Birads : Bert walker Class: Outpat ient [address] (Outpt Imaging) [address] [place], [address], 08/31/2023 10:24:05 11/03/19 24 11/02/2023 CT, abdom en + pelvi s, w/ contr ast No observ ation record ed. [facility] [address] [place], [address], 11/03/2023 13:36:14 12/17/19 24 12/17/2023 XR, chest No observ ation record ed. [facility] (Medical Records) [address] [place], [address], 12/17/2023 14:14:49 12/17/19 24 12/17/2023 CT, abdom en + pelvi s, w/o contr ast No observ ation record ed. [address] (Medical Records) [address] [place], [address], 12/20/2023 08:52:21 08/18/19 25 08/17/2024 Foot and Ankle outco me score No observ ation record ed. [email or web address] Not Available 2024 11:08:15 09/07/19 25 09/06/2024 MAMMO , scree orestes, bilat eral No observ ation record ed. [email or web address] [facility] [address] [place] [address] [place], [address], 09/12/2024 12:55:54 Result Notes None recorded. Problems Name Problem SNOMED Code Status Onset Date Resolution Date Notes Provider Name and Address Organization Details Recorded Time Acute pharyngi tis [id number] Completed 201101/16/2014 RECORDED 05/13/20 12 3:41PM BY ALLA BAUM MA, ANNOTATI ON/ADD DUM Peyman Healy MD [address] [facility] [address], [place], [address], [facility] 7 10:24:09 Adult health examinat ion Completed 201303/18/2016 Diana martines [place] null, [facility] 6 09:23:31 Anxiety state [id number] Completed 201312/30/2016 Peyman Healy MD [address] [facility] [address], [place], [address], [facility] 7 10:23:44 Backache [id number] Completed 201301/16/2014 IMPRESSI ON: > 1 WEEK OF WORSENIN G BACK PAIN, UNABLE TO STAND UPRIGHT, LEGS GIVING OUT. PAIN NOW RADIATIN G INTO BUTTOCKS AND ANTERIOR THIGHS. MRI REVEALED SCHMORL' S NODES, OTHERWIS E NEG. TO PSS FOR FURTHER EVAL.; RECORDED 10/05/19 14 2:28PM BY DIANA NUNEZ MA, ANNOTATI ON/ADD DUM Susan De Oliveira PA-C [address] [facility] [address], [place], [address], [facility] 6 15:45:51 Bronchit is [id number] Completed 201201/16/2014 RECORDED 07/28/19 13 1:45AM BY ALLA BAUM MA, ISAIAHATI ON/ADDEN SimpleReachSusanyimi De Oliveira DE-C [address], [place], [address], [facility] 6 15:45:51 Acute bronchit is 36091777 Completed 201301/16/2014 IMPRESSI ON: LIKELY MOSTLY VIRAL SXS, HOWEVER DUE TO SMOKING STATUS AND RISK OF BACTERIA L BRONCHIT IS OR PNA TO TX WITH ABX. REST, FLUIDS, COUGH MED AT NIGHT PRN. CALL FOR WORSENIN G/PRN.; RECORDED 10/05/19 14 2:26PM BY DIANA NUNEZ MA, MARY CARMEN ON/ADDEN GEORGE De Oliveira DE-C [address], [place], [address], [facility] 6 15:45:51 Screenin g for malignan t neoplasm of cervix Completed 201101/16/2014 RECORDED 05/13/20 12 3:41PM BY ALLA BAUM MA, MARY CARMEN ON/Spontly DUM Susanyimi De Oliveira DE-C [address], [place], [address], [facility] 6 15:45:51 Cough [id number] Completed 201301/16/2014 IMPRESSI ON: POSSIBLE PNEUMONI A WITH THE FOCAL RALES. IF SHE DOES NOT IMPROVE WITH THE ABX SHE WILL GET A CXR.; RECORDED 10/05/19 14 2:26PM BY DIANA NUNEZ MA, MARY CARMEN ON/ADDEN BRODY Ferro [address], [place], [address], [facility] 4 11:48:33 Tobacco dependen ce syndrome [id number] Active 2013 Diana martines [place] null, [facility] 6 09:24:07 Tobacco dependen ce syndrome 83911259 Completed 201301/16/2014 RECORDED 10/05/19 14 2:27PM BY DIANA NUNEZ MA, ANNOTATI ON/ADDEN DUM Diana martines MA null, [facility] 6 09:24:07 Diarrhea 24537168 Completed 201301/16/2014 RECORDED 10/05/19 14 2:25PM BY DIANA NUNEZ MA, MARY CARMEN ON/ADDEN DUM Susan RHODESC [address], [place], [address], [facility] 6 15:45:51 Dysuria 26449315 Completed 201312/30/2016 RECORDED 10/05/19 14 2:30PM BY DIANA NUNEZ MA, OFFICE VISIT Peyman Healy MD [address], [place], [address], [facility] 7 10:24:17 Elevated blood-pr essure reading without diagnosi s of hyperten margaret [id number] Active 2013 Diana martines [place] null, [facility] 7 11:51:58 Epigastr ic pain 04723843 Completed 201101/16/2014 IMPRESSI ON: PROBABLE GASTRITI S D/T RECENT NSAIDS AND PREDNISO NE TAPER, NO LONGER TAKING EITHER; RECORDED 05/13/20 12 3:41PM BY ALLA BAUM MA, MARY CARMEN ON/ADDEN DUM Susan RHODESC [address], [place], [address], [facility] 6 15:45:51 Follow-u p encounte r Completed 201201/16/2014 RECORDED 08/31/19 13 1:39PM BY RHONDA PETERSEN MA, MARY CARMEN ON/ADDEN DUM Susanyimi RHODESC [address], [place], [address], [facility] 6 15:45:51 Malaise and fatigue [id number] Completed 201101/16/2014 IMPRESSI ON: PER PT REPORT WITH SIG INCREASE D STRESS LEVELS RECENTLY . SEES THERAPIS T WEEKLY, REC INCREASI NG ZOLOFT DOSE. CHANGED FROM 25- 50 MG.; RECORDED 05/13/20 12 3:41PM BY ALLA BAUM MA, MARY CARMEN ON/ADDEN DUM Susan De Oliveira PA-C [address] [facility] [address], [place], [address], [facility] 6 15:45:51 Gastroes ophageal reflux disease [id number] Active 2013 Diana martines [place] null, [facility] 6 09:23:24 Headache 03472067 Completed 201301/16/2014 RECORDED 10/05/19 14 2:28PM BY DIANA NUNEZ MA, ISAIAHATI ON/ADDEN DUM Susan De Oliveira PA-C [address] [facility] [address], [place], [address], [facility] 6 15:45:51 Glucose level outside referenc e range 933946165 Completed 201312/30/2016 Peyman Healy MD [address] [facility] [address], [place], [address], [facility] 7 10:23:38 Hyperlip idemia 14859945 Completed 201312/30/2016 BRODY Roberts [address] [facility] [address], [place], [address], [facility] 2 14:05:28 Low back pain 468753921 Completed 201101/16/2014 RECORDED 05/13/20 12 3:41PM BY ALLA BAUM MA, ISAIAHATI ON/ADDEN DUM BRODY Roberts [address], [place], [address], [facility] 2 10:36:13 Acute lymphade nitis 63615645 Completed 201301/16/2014 IMPRESSI ON: PT VERY ANXIOUS [...] BY DIANA NUNEZ MA, ISAIAHATI ON/ADDEN GEORGE De Oliveira PA-C [address] [facility] [address], [place], [address], [facility] 6 15:45:51 Administ ration of bacteria l and viral vaccine Completed 201001/16/2014 RECORDED 09/20/19 11 1:19PM BY BABITA ANDERSON PA-C, OFFICE VISIT Susan De Oliveira PA-C [address] [facility] [address], [place], [address], [facility] 6 15:45:51 Psoriasi s [id number] Active 2013 Diana martines [place] null, [facility] 6 09:24:04 Disorder of rotator cuff 216757816 Completed 201201/16/2014 IMPRESSI ON: SUSPECT SUPRASPI NATUS TENDON TEAR. 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 FURTHER F/U THROUGH [facility]. SHE WILL TAKE NSAID PRN AND ICE. MAY RETURN TO WORK.; RECORDED 08/31/19 13 1:39PM BY RHONDA PETERSEN MA, ANNOTATI ON/ADDEN DUM Susan De Oliveira PA-C [address], [place], [address], [facility] 6 15:45:51 Adult health examinat ion Completed 201101/16/2014 RECORDED 05/13/20 12 3:41PM BY ALLA BAUM MA, MARY CARMEN ON/ADDEN DUM GABRIELA [place], [facility] 6 09:23:31 Shoulder joint pain 095859203 Completed 201101/16/2014 STORY: R SIDED, X PAST [...] [address], [place], [address], [facility] 6 15:45:51 Disorder of upper respirat ory system 465798410 Completed 201101/16/2014 RECORDED 05/13/20 12 3:41PM BY ALLA BAUM MA, MARY CARMEN ON/ADDEN DUM Susan LICONA-C [address], [place], [address], [facility] 6 15:45:51 Disorder of bursa of shoulder region 34173894 Active 2013 GABRIELA [place], [facility] 6 09:24:00 Temporom andibula r joint disorder 52475584 Active 2013 GABRIELA [place], [facility] 7 11:51:54 Acute upper respirat ory infectio n 87237747 Completed 201101/16/2014 IMPRESSI ON: 5 DAYS, NO FEVERS AND NO FOCAL SIGNS ON EXAM. LIKELY VIRAL, ADVISED RE REST, FLUIDS AND OTHER SX SUPPORT. CALL FOR WORSENIN G/PRN.; RECORDED 05/13/20 12 3:41PM BY ALLA BAUM MA, ISAIAHATI ON/ADDEN DUM Susan De Oliveira DE-C [address] [facility] [address], [place], [address], [facility] 6 15:45:51 Vernal conjunct ivitis 385205019 Completed 201101/16/2014 RECORDED 05/13/20 12 3:41PM BY ALLA BAUM MA, ANNOTATI ON/ADDEN DUM Susan LICONA [address] [facility] [address], [place], [address], [facility] 6 15:45:51 Candidal vulvovag initis 69079741 Completed 201301/16/2014 IMPRESSI ON: TENDS TO GET YEAST INFECTIO NS WITH ABX; RECORDED 10/05/19 14 2:26PM BY DIANA NUNEZ MA, MARY CARMEN ON/LUIS LICONA [address] [facility] [address], [place], [address], [facility] 6 15:45:51 Acute pharyngi tis 160502135 Completed 201102/08/2014 RECORDED 05/13/20 12 3:41PM BY ALLA BAUM MA, MARYC ARMEN ON/ADDEN DUM Peyman Healy MD [address] [facility] [address], [place], [address], [facility] 7 10:24:09 Backache 063003325 Completed 201302/08/2014 IMPRESSI ON: > 1 WEEK OF WORSENIN G BACK PAIN, UNABLE TO STAND UPRIGHT, LEGS GIVING OUT. PAIN NOW RADIATIN G INTO BUTTOCKS AND ANTERIOR THIGHS. MRI REVEALED SCHMORL' S NODES, OTHERWIS E NEG. TO PSS FOR FURTHER EVAL.; RECORDED 10/05/19 14 2:28PM BY DIANA NUNEZ MA, MARY CARMEN ON/ADDMOHAN LICONA [address] [facility] [address], [place], [address], [facility] 6 15:45:51 Bronchit is 62783928 Completed 201202/08/2014 RECORDED 07/28/19 13 1:45AM BY ALLA BAUM MA, ANNOTATI ON/[facility] [address] [facility] [address], [place], [address], [facility] 6 15:45:51 Acute bronchit is 26207944 Completed 201302/08/2014 IMPRESSI ON: LIKELY MOSTLY VIRAL SXS, HOWEVER DUE TO SMOKING STATUS AND RISK OF BACTERIA L BRONCHIT IS OR PNA TO TX WITH ABX. REST, FLUIDS, COUGH MED AT NIGHT PRN. CALL FOR WORSENIN G/PRN.; RECORDED 10/05/19 14 2:26PM BY DIANA NUNEZ MA, ANNOTATI ON/[facility] [address] [facility] [address], [place], [address], [facility] 6 15:45:51 Screenin g for malignan t neoplasm of cervix Completed 201102/08/2014 RECORDED 05/13/20 12 3:41PM BY ALLA BAUM MA, ANNOTATI ON/[facility] [address] [facility] [address], [place], [address], [facility] 6 15:45:51 Cough [id number] Completed 201302/08/2014 IMPRESSI ON: PRODUCTI VE COUGH X 10D, + TOBACCO, WILL TX, ADVISE TO STOP SMOKING, RTC IF PERSISTE NT OR WORSENIN G SYMPTOMS .; RECORDED 10/05/19 14 2:26PM BY DIANA NUNEZ MA, ANNOTATI ON/[facility] MILA Roberts [address] [facility] [address], [place], [address], [facility] 4 11:48:33 Diarrhea 03046140 Completed 201302/08/2014 RECORDED 10/05/19 14 2:25PM BY DIANA NUNEZ MA, MARY CARMEN ON/ADDEN DUM Susanyimi LICONA-C [address], [place], [address], [facility] 6 15:45:51 Epigastr ic pain 00243969 Completed 201102/08/2014 IMPRESSI ON: PROBABLE GASTRITI S D/T RECENT NSAIDS AND PREDNISO NE TAPER, NO LONGER TAKING EITHER; RECORDED 05/13/20 12 3:41PM BY ALLA BAUM MA, MARY CARMEN ON/ADDEN DUM Susan LICONA-C [address] [facility] [address], [place], [address], [facility] 6 15:45:51 Follow-u p encounte r Completed 201202/08/2014 RECORDED 08/31/19 13 1:39PM BY RHONDA PETERSEN MA, MARY CARMEN ON/ADDEN DUM Susan LICONA-C [address] [facility] [address], [place], [address], [facility] 6 15:45:51 Malaise and fatigue 084693007 Completed 201102/08/2014 IMPRESSI ON: PER PT REPORT WITH SIG INCREASE D STRESS LEVELS RECENTLY . SEES THERAPIS T WEEKLY, REC INCREASI NG ZOLOFT DOSE. CHANGED FROM 25- 50 MG.; RECORDED 05/13/20 12 3:41PM BY ALLA BAUM MA, MARY CARMEN ON/ADDEN DUM Susan LICONA-C [address] [facility] [address], [place], [address], [facility] 6 15:45:51 Headache 94334869 Completed 201302/08/2014 RECORDED 10/05/19 14 2:28PM BY DIANA NUNEZ MA, MARY CARMEN ON/ADDEN DUM Susan De Oliveira PA-C [address] [facility] [address], [place], [address], [facility] 6 15:45:51 Low back pain 014609083 Completed 201102/08/2014 RECORDED 05/13/20 12 3:41PM BY ALLA BAUM MA, MARY CARMEN ON/ADDEN DUM BRODY Roberts [address] [facility] [address], [place], [address], [facility] 2 10:36:13 Acute lymphade nitis 95582143 Completed 201302/08/2014 IMPRESSI ON: PT VERY ANXIOUS [...] 2:26PM BY DIANA NUNEZ MA, MARY CARMEN ON/[facility] Susan De Oliveira PA-C [address] [facility] [address], [place], [address], [facility] 6 15:45:51 Administ ration of bacteria l and viral vaccine Completed 201002/08/2014 RECORDED 09/20/19 11 1:19PM BY BABITA ANDERSON PA-C, OFFICE VISIT Susan De Oliveira PA-C [address] [facility] [address], [place], [address], [facility] 6 15:45:51 Disorder of rotator cuff 457587800 Completed 201202/08/2014 IMPRESSI ON: SUSPECT SUPRASPI NATUS TENDON TEAR. 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 FURTHER F/U THROUGH [employer] [facility]/[facility] [employer] [facility]. SHE WILL TAKE NSAID PRN AND ICE. MAY RETURN TO WORK.; RECORDED 08/31/19 13 1:39PM BY RHONDA PETERSEN MA, MARY CARMEN ON/LUIS LICONA-C [address] [facility] [address], [place], [address], [facility] 6 15:45:51 Shoulder joint pain 918767867 Completed 201102/08/2014 STORY: R SIDED, X PAST TWO WEEKS WITHOUT HX OF TRAUMA OR INJURY RECENT OR PAST. WITH ASSOCIAT ED WEAKNESS , MINIMAL RESP TO NSAID. WILL CONTACT [facility] TO SEE IF THEY ARE ABLE TO SEE HER SOON, IF NOT WILL CHECK XRAYS WHILE AWAITING APPT.; RECORDED 05/13/20 12 3:41PM BY ALLA BAUM MA, ANNOTATI ON/LUIS LICONA-C [address] [address], [place], [address], [facility] 6 15:45:51 Disorder of upper respirat ory system 265077887 Completed 201102/08/2014 RECORDED 05/13/20 12 3:41PM BY ALLA BAUM MA, ANNOTATI ON/LUIS RHODESC [address] [address], [place], [address], [facility] 6 15:45:51 Acute upper respirat ory infectio n 24262590 Completed 201102/08/2014 IMPRESSI ON: 5 DAYS, NO FEVERS AND NO FOCAL SIGNS ON EXAM. LIKELY VIRAL, ADVISED RE REST, FLUIDS AND OTHER SX SUPPORT. CALL FOR WORSENIN G/PRN.; RECORDED 05/13/20 12 3:41PM BY ALLA BAUM MA, ANNOTATI ON/LUIS RHODESC [address] [address], [place], [address], [facility] 6 15:45:51 Vernal conjunct ivitis 753555080 Completed 201102/08/2014 RECORDED 05/13/20 12 3:41PM BY ALLA BAUM MA, ANNOTATI ON/DILMAEN DUM Susan De Oliveira PA-C [address], [place], [address], [facility] 6 15:45:51 Candidal vulvovag initis 57247112 Completed 201302/08/2014 IMPRESSI ON: TENDS TO GET YEAST INFECTIO NS WITH ABX; RECORDED 10/05/19 14 2:26PM BY DIANA NUNEZ MA, MARY CARMEN ON/ADDEN DUM Susan De Oliveira PA-C [address], [place], [address], [facility] 6 15:45:51 Acute pharyngi tis 582647341 Completed 201102/09/2014 RECORDED 05/13/20 12 3:41PM BY ALLA BAUM MA, MARY CARMEN ON/ADDEN GEORGE Healy MD [address], [place], [address], [facility] 7 10:24:09 Backache 801547906 Completed 201302/09/2014 IMPRESSI ON: > 1 WEEK OF WORSENIN G BACK PAIN, UNABLE TO STAND UPRIGHT, LEGS GIVING OUT. PAIN NOW RADIATIN G INTO BUTTOCKS AND ANTERIOR THIGHS. MRI REVEALED SCHMORL' S NODES, OTHERWIS E NEG. TO PSS FOR FURTHER EVAL.; RECORDED 10/05/19 14 2:28PM BY DIANA NUNEZ MA, MARY CARMEN ON/ADDEN DUM Susan De Oliveira PA-C [address], [place], [address], [facility] 6 15:45:51 Bronchit is 88886376 Completed 201202/09/2014 RECORDED 07/28/19 13 1:45AM BY ALLA BAUM MA, MARY CARMEN ON/ADDEN DUM Susan De Oliveira PA-C [address], [place], [address], [facility] 6 15:45:51 Acute bronchit is 18871759 Completed 201302/09/2014 IMPRESSI ON: LIKELY MOSTLY VIRAL SXS, HOWEVER DUE TO SMOKING STATUS AND RISK OF BACTERIA L BRONCHIT IS OR PNA TO TX WITH ABX. REST, FLUIDS, COUGH MED AT NIGHT PRN. CALL FOR WORSENIN G/PRN.; RECORDED 10/05/19 14 2:26PM BY DIANA NUNEZ MA, MARY CARMEN ON/ADDEN GEORGE LICONA-C [address], [place], [address], [facility] 6 15:45:51 Screenin g for malignan t neoplasm of cervix Completed 201102/09/2014 RECORDED 05/13/20 12 3:41PM BY ALLA BAUM MA, MARY CARMEN ON/ColdSparkEN GEORGE Susanyimi LICONA-C [address], [place], [address], [facility] 6 15:45:51 Cough [id number] Completed 201302/09/2014 IMPRESSI ON: PRODUCTI VE COUGH X 10D, + TOBACCO, WILL TX, ADVISE TO STOP SMOKING, RTC IF PERSISTE NT OR WORSENIN G SYMPTOMS .; RECORDED 10/05/19 14 2:26PM BY DIANA NUNEZ MA, MARY CARMEN ON/ADDEN BRODY Ferro [address], [place], [address], [facility] 4 11:48:33 Diarrhea [id number] Completed 201302/09/2014 RECORDED 10/05/19 14 2:25PM BY DIANA NUNEZ MA, MARY CARMEN ON/ADDEN GEORGE LICONA-C [address], [place], [address], [facility] 6 15:45:51 Epigastr ic pain 35599077 Completed 201102/09/2014 IMPRESSI ON: PROBABLE GASTRITI S D/T RECENT NSAIDS AND PREDNISO NE TAPER, NO LONGER TAKING EITHER; RECORDED 05/13/20 12 3:41PM BY ALLA BAUM MA, ANNOTATI ON/ADDEN DUM Susan Apolinar PA-C [address], [place], [address], [facility] 6 15:45:51 Follow-u p encounte r Completed 201202/09/2014 RECORDED 08/31/19 13 1:39PM BY RHONDA PETERSEN MA, MARY CARMEN ON/ADDEN DUM Susan Apolinar PA-C [address], [place], [address], [facility] 6 15:45:51 Malaise and fatigue 166667823 Completed 201102/09/2014 IMPRESSI ON: PER PT REPORT WITH SIG INCREASE D STRESS LEVELS RECENTLY . SEES THERAPIS T WEEKLY, REC INCREASI NG ZOLOFT DOSE. CHANGED FROM 25- 50 MG.; RECORDED 05/13/20 12 3:41PM BY ALLA BAUM MA, MARY CARMEN ON/ADDEN DUM Susan LICONA-C [address], [place], [address], [facility] 6 15:45:51 Headache 54459242 Completed 201302/09/2014 RECORDED 10/05/19 14 2:28PM BY DIANA NUNEZ MA, MARY CARMEN ON/ADDEN DUM Susan Apolinar PA-C [address], [place], [address], [facility] 6 15:45:51 Low back pain 303309367 Completed 201102/09/2014 RECORDED 05/13/20 12 3:41PM BY ALLA BAUM MA, ISAIAHATI ON/ADDEN DUM BRODY Roberts [address], [place], [address], [facility] 2 10:36:13 Acute lymphade nitis 22884239 Completed 201302/09/2014 IMPRESSI ON: PT VERY ANXIOUS [...] ENLARGIN G.; RECORDED 10/05/19 14 2:26PM BY DINAA NUNEZ MA, MARY CARMEN ON/LUIS DUM Susan De Oliveira PA-C [address] [facility] [address], [place], [address], [facility] 6 15:45:51 Administ ration of bacteria l and viral vaccine Completed 201002/09/2014 RECORDED 09/20/19 11 1:19PM BY BABITA ANDERSON PA-C, OFFICE VISIT Susan De Oliveira PA-C [address] [facility] [address], [place], [address], [facility] 6 15:45:51 Disorder of rotator cuff 262762578 Completed 201202/09/2014 IMPRESSI ON: SUSPECT SUPRASPI NATUS TENDON TEAR. 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 FURTHER F/U THROUGH [employer]/[facility]. SHE WILL TAKE NSAID PRN AND ICE. MAY RETURN TO WORK.; RECORDED 08/31/19 13 1:39PM BY RHONDA PETERSEN MA, MARY CARMEN ON/LUIS DUM Susan De Oliveira PA-C [address] [facility] [address], [place], [address], [facility] 6 15:45:51 Shoulder joint pain 658809658 Completed 201102/09/2014 STORY: R SIDED, X PAST TWO WEEKS WITHOUT HX OF TRAUMA OR INJURY RECENT OR PAST. WITH ASSOCIAT ED WEAKNESS , MINIMAL RESP TO NSAID. WILL CONTACT [facility] TO SEE IF THEY ARE ABLE TO SEE HER SOON, IF NOT WILL CHECK XRAYS WHILE AWAITING APPT.; RECORDED 05/13/20 12 3:41PM BY ALLA BAUM MA, MARY CARMEN ON/ADDEN DUM Susan De Oliveira ALTILIA-C [address] [facility] [address], [place], [address], [facility] 6 15:45:51 Disorder of upper respirat ory system 921005683 Completed 201102/09/2014 RECORDED 05/13/20 12 3:41PM BY ALLA BAUM MA, MARY CARMEN ON/ADDMOHAN DUM Susanyimi Ruffinden DE-C [address] [facility] [address], [place], [address], [facility] 6 15:45:51 Acute upper respirat ory infectio n 95322926 Completed 201102/09/2014 IMPRESSI ON: 5 DAYS, NO FEVERS AND NO FOCAL SIGNS ON EXAM. LIKELY VIRAL, ADVISED RE REST, FLUIDS AND OTHER SX SUPPORT. CALL FOR WORSENIN G/PRN.; RECORDED 05/13/20 12 3:41PM BY ALLA BAUM MA, ANNOTATI ON/LUIS Ruffinden DE-C [address] [facility] [address], [place], [address], [facility] 6 15:45:51 Vernal conjunct ivitis 315159831 Completed 201102/09/2014 RECORDED 05/13/20 12 3:41PM BY ALLA BAUM MA, MARY CARMEN ON/ADDEN DUM Susan RuffiniTracs-C [address] [facility] [address], [place], [address], [facility] 6 15:45:51 Candidal vulvovag initis 01169439 Completed 201302/09/2014 IMPRESSI ON: TENDS TO GET YEAST INFECTIO NS WITH ABX; RECORDED 10/05/19 14 2:26PM BY DIANA NUNEZ MA, ANNOTATI ON/ADDEN DUM Susan De Oliveira PA-C [address], [place], [place], [address], [facility] 6 15:45:51 Wheezing symptom 872278101 Completed 12/30/2016 Peyman Healy MD [address], [place], [place], [address], [facility] 7 10:24:02 Acute sinusiti s 28600506 Completed 12/30/2016 Peyman Healy MD [address], [place], [place], [address], [facility] 7 10:23:40 Acute asthma 472158704 Completed 12/30/2016 Peyman Healy MD [address], [place], [address], [facility] 7 10:24:04 Acute allergic reaction 920910739 Completed 12/30/2016 Peyman Healy MD [address], [place], [place], [address], [facility] 7 10:23:59 Fatigue 54531284 Completed 12/30/2016 MILA Roberts [address], [place], [place], [address], [facility] 2 14:05:52 Irritabl e bowel syndrome 38850483 Active Susan De Oliveira PA-C [address], [place], [address], [facility] 6 15:45:51 Acute pharyngi tis 368016415 Completed 12/30/2016 Peyman Healy MD [address], [place], [address], [facility] 7 10:24:09 Pain in calf 056660249 Completed 12/30/2016 Peyman Healy MD [address], [place], [address], [facility] 7 10:24:07 Synovial cyst of knee 486135871 Completed 12/30/2016 Peyman Healy MD [address], [place], [address], [facility] 7 10:23:54 Lumbar sprain 401152657 Completed 12/30/2016 Peyman Healy MD [address], [place], [address], [facility] 7 10:23:49 Sprain pelvic ligament 456589928 Completed 12/30/2016 Peyman Healy MD [address], [place], [address], [facility] 7 10:23:46 Inflamma tion of sacroili ac joint 40030396 Completed 12/30/2016 Peyman Healy MD [address], [place], [address], [facility] 7 10:24:21 Anemia of pregnanc y 87955842 Completed 201512/30/2016 Peyman Healy MD [address] [facility] [address], [place], [address], [facility] 7 10:23:35 Generali zed anxiety disorder 81040434 Active 2016 Diana martines [facility], [facility] 7 11:53:56 Primary biliary cholangi tis 65740272 Active 2019 BRODY Roberts [address], [place], [address], 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 no other organs. nephrect sandoval 09/2019 Removal Reason: radical nephrect sandoval 09/2019 Lynda Papo ortega [facility] 3 15:23:27 Neoplasm of left kidney 80293833263 380748 Completed 202004/27/2023 Removal Reason: radical nephrect sandoval 09/2019 Lynda Papo ortega [facility] 3 15:23:00 Low back pain 266071332 Active 2021 RECORDED 05/13/20 12 3:41PM BY ALLA BAUM MA, ANNOTATI ON/ADDMOHAN Sanchez [address] [address], [place], [address], [facility] 2 10:36:13 Plantar fasciiti s of right foot 98889196168 934259 Active 2021 Noah Sancehz [address] [address], [place], [address], [facility] 2 13:53:56 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 74666845818 948952 Active 2021 Noah Sanchez, [address] [place] [address], [place], [address], [facility] 2 13:54:13 Hyperlip idemia 68527186 Active 2021 Noah Sanchez [address] [address], [place], [address], [facility] 2 14:05:27 Fatigue 66297147 Active 2021 Noah Sanchez [address] [address], [place], [address], [facility] 2 14:05:52 Impaired fasting glycemia 804120033 Active 2021 Noah Sanchez [address], [place], [address], [facility] 2 14:05:59 Pain of left hip joint 55245590001 9100 Active 2021 Noah Sanchez, [address], [place], [address], [facility] 2 11:29:28 Obesity 901675437 Active 2022 Lynda ortega, [facility] 3 15:21:38 Cough 52604062 Active 2023 IMPRESSI ON: PRODUCTI VE COUGH X 10D, + TOBACCO, WILL TX, ADVISE TO STOP SMOKING, RTC IF PERSISTE NT OR WORSENIN G SYMPTOMS .; RECORDED 10/05/19 14 2:26PM BY DIANA NUNEZ MA, ANNOTATI ON/ADDEN DUM Noah Sanchez [address] [address], [place], [address], [facility] 4 11:48:33 COVID-19 408066308 Active 2023 Noah Sanchez [address], [place], [address], [facility] 4 12:11:32 Fever 514570498 Active 2023 [facility] [address] [place] [address], [place], [address], [facility] 4 12:11:36 Vitamin D deficien cy 86210420 Active 2023 [facility] [address] [place] [address], [place], [address], [facility] 4 15:27:42 Acute right otitis media 038150214 Active 2024 Noah Sanchez [address], [place], [address], [facility] 11:21:54 Problem Notes None recorded. Procedures Surgical History Date Name Laterality Status Provider Name and Address Organization Details Recorded Time 09/07/19 25 Most Recent Mammogram completed Emili Martinez [facility] 09/12/2024 12:55:45 07/14/19 23 Mammogram Screening completed Danielle Rodriguez [facility] 07/14/2022 16:24:36 05/05/20 22 fasciotomy of foot completed BRDOY Roberts [address] [facility] [address], [place], [address], [facility] 04/27/2023 09:18:39 09/07/19 20 radical nephrectomy completed Greta Glasgow [facility] 09/11/2019 15:28:04 09/07/19 20 Cancer Surgery completed Sherlyn Brown MA [facility] 03/27/2021 08:40:34 07/14/19 17 Date of Last Colonoscopy completed Diana slaughter MA [facility] 12/30/2016 10:13:20 07/14/19 17 Colonoscopy completed BRODY Roberts [address] [facility] [address], [place], [address], [facility] 02/14/2019 15:53:00 02/11/20 07 delivery completed Diana slaughter MA [facility] 02/14/2019 15:32:01 01/14/20 04 Caesarean Section completed Diana slaughter MA [facility] 02/14/2019 15:31:51 09/03/19 00 Tonsillectomy completed Sherlyn Brown MA [facility] 03/27/2021 08:40:34 Tubal Ligation completed Diana slaughter MA [facility] 11/21/2014 14:01:10 Tonsillectomy completed Sherlyn Brown, MA [facility] 03/27/2021 08:40:34 Imaging Results Imaging Date Name Status LastModified by Organization Details LastModified Time 04/27/2023 electrocardiogram completed [email or web address] In-Offi ce Order Internal Use Only DO Not Attach Compendium DO Not Attach Compendium, Do Not Delete/merge, [id number] 04/27/2023 09:49:11 04/27/2023 electrocardiogram completed [email or web address] In-Offi ce Order Internal Use Only DO Not Attach Compendium DO Not Attach Compendium, Do Not Delete/merge, [id number] 04/27/2023 09:39:42 07/13/2023 XR, chest completed [facility] (Imaging) [address] [place], [address], 07/20/2023 08:53:36 08/24/2023 US, doppler, venous completed [address] (Medical Records) [address] [place], [address], 08/25/2023 08:42:01 08/30/2023 MAMMO, screening, digital, bilateral completed [address] (Outpt Imaging) [address] [place], [address], 08/31/2023 10:24:05 11/02/2023 CT, abdomen + pelvis, w/ contrast completed [facility] [address] [place], [address], 11/03/2023 13:36:14 12/17/2023 XR, chest completed [facility] (Medical Records) [address] [place], [address], 12/17/2023 14:14:49 12/17/2023 CT, abdomen + pelvis, w/o contrast completed [address] (Medical Records) [address] [place], [address], 12/20/2023 08:52:21 08/17/2024 Foot and Ankle outcome score completed Information not available 08/31/2024 11:08:15 09/06/2024 MAMMO, screening, bilateral completed [email or web address] [facility] [address] [place], [address], 09/12/2024 12:55:54 Procedure Notes None recorded. Medical Equipment None Reported. Allergies Allergen ID Allergen Name Allergen Category Reaction Reaction Severity Criticality Documentation Date Start Date Code Code System Note Provider Name and Address Organization Details Recorded Time amoxicill in medicatio n other Not available Not available 10/18/2014 723 RxNorm cause s yeast infec tion in the [facility] 5 12:49:17 2838 Keflex medicatio n itching Not available Not available 01/16/20142013 23831 7 RxNorm [facility] 5 12:49:17 2839 Product containin g penicilli n (product) medicatio n Not available Not available Not available 01/16/20142013 66475 8001 SNOMED REACT ION: AMOX, CAUSE S YEAST INFEC TIONS ; COMME NT: RECOR DED 10/04 2:30P M BY SRINIVAS THOMAS MA, OFFIC E VISIT ; Peyman Healy MD [address] [facility] [address], [place], [address], [facility] 5 16:56:28 [address]6040 Non-stero idal anti-infl ammatory agent (product) medicatio n other moderate low 04/21/2022 36196 005 SNOMED 1 BRODY Schrader [address] [facility] [address], [place], [address], [facility] 2 13:55:13 Medications Name Sig Start Date [...] BABITA ANDERSON, JACIEL, MEDICATI ON AUTO-PACO CTIVATIO N;TAKE TWO TABS [...] Not Available Not Available Sprintec (28) 0.25 mg-0.035 mg tablet DAILY 04/30 completed RECORDED 04/30/20 10 12:57PM BY SYDNIE FLORES, OFFICE VISIT;DR TRACY Irizarry Not Available Not Available Not Available azelaic acid 15 % topical gel 03/26 completed Not Available Not Available Not Available Guiatuss EVERY 4 HOURS NEEDED 02/14 completed RECORDED 02/23/20 13 11:00AM BY BABITA ANDERSON, PANaeemC, MEDICATI ON AUTO-PACO [...] Updated DateTime 3 158.75 cm 34 kg/m2 36831.9 6 g 64.99 /min 99 % 99 % 98.4 [degF] 136 mm[Hg] 84 mm[Hg] Estefania Callahan MA [facility] [place] 3 10:32:43 Date Recorded Body height Body mass index (BMI) Body weight Heart rate Oxygen saturation Oxygen saturation in Arterial blood by Pulse oximetry Body temperature Systolic blood pressure Diastolic blood pressure Provider Name and Address Organization Details Last Updated DateTime 3 158.75 cm 34 kg/m2 34163.9 6 g 74 /min 98 % 98 % 98.5 [degF] 152 mm[Hg] 91 mm[Hg] Maru Sewell MA [facility] 3 08:55:13 Date Recorded Systolic blood pressure Diastolic blood pressure Provider Name and Address Organization Details Last Updated DateTime 04/27/2023 136 mm[Hg] 80 mm[Hg] Noah Sanchez, [facility] [address], [address], [facility] 04/27/2023 09:27:54 Date Recorded Body height Body mass index (BMI) Body weight Body temperature Oxygen saturation Oxygen saturation in Arterial blood by Pulse oximetry Heart rate Systolic blood pressure Diastolic blood pressure Provider Name and Address Organization Details Last Updated DateTime 4 158.75 cm 34.6 kg/m2 17878.7 4 g 98.4 [degF] 98 % 98 % 85 /min 127 mm[Hg] 85 mm[Hg] Sydnie Flores MA [facility] 4 11:28:21 Date Recorded Body height Body mass index (BMI) Body weight Heart rate Oxygen saturation Oxygen saturation in Arterial blood by Pulse oximetry Body temperature Systolic blood pressure Diastolic blood pressure Provider Name and Address Organization Details Last Updated DateTime 4 158.75 cm 34 kg/m2 73163.9 6 g 72 /min 99 % 99 % 98.2 [degF] 147 mm[Hg] 79 mm[Hg] Maru Sewell MA [facility] 4 15:21:08 Date Recorded Systolic blood pressure Diastolic blood pressure Provider Name and Address Organization Details Last Updated DateTime 05/02/2024 120 mm[Hg] 66 mm[Hg] BRODY Roberts [address] [facility] [address] [place] [address], [address], [facility] 05/02/2024 16:01:22 Date Recorded Body height Body mass index (BMI) Body weight Heart rate Oxygen saturation Oxygen saturation in Arterial blood by Pulse oximetry Body temperature Systolic blood pressure Diastolic blood pressure Provider Name and Address Organization Details Last Updated DateTime 158.75 cm 33.7 kg/m2 83227.7 7 g 62 /min 98 % 98 % 99.1 [degF] 158 mm[Hg] 92 mm[Hg] Maru Sewell MA [facility] 10:49:03 Date Recorded Systolic blood pressure Diastolic blood pressure Provider Name and Address Organization Details Last Updated DateTime 07/06/2024 110 mm[Hg] 60 mm[Hg] Noah Sanchez [facility] [address], [address], [facility] 07/06/2024 11:27:04 Social History Question Answer Notes LastModified by Organizat ion Details LastModified Time Tobacco Smoking Status Former Smoker pt quit 09/2019 [place] Waller, [facility] 03/26/2020 10:39:09 Do You Have An Advance [...] not available 04/23/2022 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 1-5yearssinrocky wright [email or web address] Information not available 03/27/2021 Live Alone Or [...] Health Care Provider Or Emergency Responder? Yes [email or web address] Information not available 03/26/2020 To The Best Of Your Knowledge Have You Been In Close Proximity To Any Individual Who Tested Positive For COVID-19? No [email or web address] Information not available 03/26/2020 Have You Recently Traveled To A COVID-19 High Risk Area Or Gathering In The Last 10 Days? No [email or web address] Information not available 07/23/2020 What Was The Date Of Your Most Recent Tobacco Screening? 05/02/2024 [email or web address] Information not available 05/02/2024 How Many Children Do You Have? 2 Gabriel And Jas Information not available 12/30/2016 Do You Use Your Seat Belt Or Car Seat Routinely? Yes [email or web address] Information not available 03/27/2021 Seat Belts Used Routinely Yes Information not available 04/23/2022 Are You Sexually Active? No Information not available 12/30/2016 Smoke Alarm In Home Yes Information not available 04/23/2022 Do You Have Smoke And Carbon Monoxide Detectors In Your Home? Yes [email or web address] Information not available 03/27/2021 At What Age Did You Start Smoking Tobacco? 15 Information not available 11/21/2014 Are You Passively Exposed To Smoke? No Information not available 06/05/2015 Do You Or Have You Ever Used Smokeless Tobacco? Never Used Smokeless Tobacco Information not available 02/14/2019 How Much Tobacco Do You Smoke? No [email or web address] Information not available 03/26/2020 Do You Use [...] available 10:40:59 Father Malignant tumor of lung [email or web address] Not available 03/27 08:40:16 Father Kidney disease [email or web address] Not available 03/27 08:40:16 Mother Malignant neoplasm of uterus molar pregna ncy- hyster ectomy Not available 04/23/2022 10:40:59 Mother Opioid dependence Not available 04/23 10:40:59 Mother Substance abuse [email or web address] Not available 03/27 08:40:16 Mother Seizure disorder [email or web address] Not available 03/27 08:40:16 Mother Osteoporosis Not vasile ilable 03/27/2021 08:40:16 Mother Disorder of thyroid gland Not available 2021 10:40:59 Brother Essential hypertension 45 possib ly Not available 04/23/2022 10:40:59 Brother Alcohol abuse [email or web address] Not available 2017 15:39:14 Brother Depressive disorder [email or web address] Not available 03/27 08:40:16 Maternal Grandfather Opioid dependence Not available 04/23 10:40:59 Unspecified Relation Substance abuse [email or web address] Not available 03/27 08:40:16 Son Allergy Not [...] Method Tubal Ligat ion Most Recent Mammogram 09/06/2024 Age at First Child 28 Date of [...] virus, trivalent, preservative 6 completed [place]A Pimentel, [facility] 12/30/2016 10:11:22 Influenza, split virus, quadrivalent, preservative 8 completed [facility] 09/02/2018 10:03:42 Influenza, split virus, quadrivalent, preservative 9 completed [facility] 06/14/2019 09:27:56 COVID-19, mRNA, LNP-S, PF, 100 mcg/0.5mL dose or 50 mcg/0.25mL dose 0 completed [facility] 09/12/2021 10:18:38 Influenza, split virus, quadrivalent, PF 1 completed [facility] 09/12/2021 10:18:38 COVID-19, mRNA, LNP-S, PF, 100 mcg/0.5mL dose or 50 mcg/0.25mL dose 1 completed [facility] 09/12/2021 10:18:38 Influenza, split virus, quadrivalent, PF 7 completed [facility] 09/12/2021 10:18:39 Influenza, split virus, trivalent, preservative 5 completed [place]RI[place]A Valadez, [facility] 12/24/2021 10:23:35 Influenza, split virus, quadrivalent, PF 3 completed [facility] 07/13/2023 11:16:35 Tdap 1 completed Not Available [facility] 01/16/2014 13:38:10 Influenza, split virus, quadrivalent, PF 0 completed [facility] 03/26/2020 10:48:58 Tdap 1 completed Unique Melo MA null, [facility] [place] 03/27/2021 10:06:49 Influenza, split virus, quadrivalent, PF 2 completed Noah Sanchez [facility] [address], [address], [facility] 04/23/2022 11:29:33 Past Encounters Encounter ID Performer Location Encounter Start Date Encounter Closed Date Diagnosis/Indication Diagnosis SNOMED-CT Code Diagnosis ICD10 Code Diagnosis Note [id number] 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 [address] [facility] [place] [address] 05/07/2009 00:00:00 [id number] 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 [address] [facility] [place] [address] 04/03/2010 00:00:00 [id number] 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 [address] [facility] [place] [address] 04/30/2010 00:00:00 [id number] 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 [address] [facility] [place] [address] 08/22/2010 00:00:00 [id number] 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 [address] [facility] [place] [address] 09/19/2010 00:00:00 [id number] 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 [address] [facility] [place] [address] 11/17/2010 00:00:00 [id number] 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 [address] [facility] [place] [address] 06/02/2011 00:00:00 [id number] 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 [address] [facility] [place] [address] 09/15/2011 00:00:00 [id number] 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 [address] [facility] [place] [address] 10/29/2011 00:00:00 [id number] 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 [address] [facility] [place], [place] [address] 11/11/2011 00:00:00 [id number] 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 [address] [place] [address] 05/13/2012 00:00:00 [id number] 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 [address] [facility] [address] [place] [address] 08/31/2012 00:00:00 [id number] 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 [address] [facility] [address] [place] [address] 02/07/2013 00:00:00 [id number] 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 [address] [facility] [address] [place] [address] 04/12/2013 00:00:00 [id number] 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 [address] [facility] [place] [address] 08/30/2013 00:00:00 [id number] 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 [address] [facility] [place], [place] [address] 10/04/2013 00:00:00 [id number] Diana thomas MA Main Office [address] [facility] [address] [place] [address] 03/27/2014 09:46:56 03/27/2014 10:49:27 Wheezing symptom 428320231 Tobacco de pendence syndrome 50792308 [id number] Carol Melo MA Main Office [address] [facility] [address] [place] [address] 09/14/2014 14:46:39 09/14/2014 15:17:09 Acute sinusitis 49864757 Tobacco de pendence syndrome 70616712 [id number] Main Office [address] [facility] [address] [place] [address] 10/18/2014 12:40:42 10/18/2014 13:27:05 Acute asthma 394583032 Acute zhao rgic reaction 693953134 Tobacco de pendence syndrome 54111058 317260 Main Office [address] [facility] [address] [place] [address] 11/21/2014 13:28:44 11/21/2014 14:47:30 Adult health examination 159572642 Hyperlipidemia 80476377 Fatigue 34294446 Tobacco de pendence syndrome 54526266 Irritable bowel syndrome 47979984 Screening for malignant neoplasm of breast 280173789 Screening for malignant neoplasm of cervix 485318558 Body mass index 25-29 - overweight 929325205 [id number] Isaac Masters Main Office [address] [address] [place] [address] 12/29/2014 09:25:24 12/29/2014 09:50:58 Acute pharyngitis 748574687 probable viral infection; no role for abx. Continue with symptomati c treatment. [id number] Peyman Healy MD Main Office [address] [address] [place] [address] 04/24/2015 13:09:18 04/24/2015 15:20:58 Acute sinusitis 40715643 J01.90 Anxiety state 593406805 F41.1 [id number] Peyman Healy MD Main Office [address] [place] [address] [place] [address] 06/05/2015 14:02:13 06/05/2015 15:35:44 Anxiety state 998936481 F41.1 Pain in calf 443573650 M 79.669 [id number] Peyman Healy MD Main Office [address] [place] [address] [place] [address] 07/23/2015 10:47:52 07/23/2015 12:10:04 Lumbar sprain 618597908 S33.9XXA L. lumbar sparin acute. Can not tolerate NSAIDs. Will start Prednisone taper , Flexeril at night only and Tramadil for pain. Moist heat applicatio ns, gently back stretches. Stay back from work for few days. Sprain pel elana ligament 548735060 S33.9XXA [id number] Peyman Healy MD Main Office [facility] [address] [place] [address] 12/25/2015 13:17:42 12/25/2015 14:58:37 Anxiety state 778052834 F41.1 Tobacco de pendence syndrome 30261438 F17.290 Reviewed motivation s for smoking cessation. Advised about benefits of stopping smoking. Hyperlipidemia 83803692 E78.5 Adult heal th examination 321811542 Z00.00 Fatigue 79158444 R53.83 Body mass index 25-29 - overweight 879841298 Z68.29 Inflammati on of sacroiliac joint 22664980 M46.1 [id number] Peyman Healy MD Main Office [address] [address] [place] [address] 03/18/2016 09:15:07 03/18/2016 10:32:41 Irritable bowel syndrome 77879217 K58.9 Diarrhea 88369902 R19.7 Knee pain 48971991 M25.5 61 Medial joint line tenderness with positive Malathi test. Rule out meniscus injury [id number] Barbara Shaylee dumont Main Office [address] [address] [place] [address] 08/07/2016 10:37:00 08/07/2016 11:16:42 Upper respiratory infection 94406207 J06.9 PT. will use Mucinex DM or D BID for congestion and cough , nasal saline solution BID and FLonase she has at home qd. Rest and fluids. PT. will call office next week if worsening of symptoms , fever, colored secretions or facial pain. [id number] Peyman Healy MD Main Office [address] [address] [place] [address] 12/30/2016 10:04:42 12/30/2016 11:06:58 Adult health examination 471364507 Z00.00 Tobacco de pendence syndrome 91484920 F17.290 Reviewed motivation s for smoking cessation. Advised about benefits of stopping smoking. Elevated blood-pressure reading without diagnosis of hypertension 331317492 R03.0 Had elevated BP under propafol for colonoscop y Anxiety state 766372147 F41.1 STable on medication Hyperlipidemia 44386297 E78.5 Fatigue 67109798 R53.83 Hyperhidrosis 621740844 R61 Nasal vestibulitis 93342 000 J34.89 Body mass index 25-29 - overweight 228203593 E66.3 Z68.25 167191 Sim Garcia MD Main Office [address] [address] [place] [address] 09/15/2017 13:21:04 09/15/2017 14:12:54 Acute sinusitis 61041420 J01.90 pt requested diflucan - rec add probiotic supp qd soniya for her IBS c/o - hopefully not require levsin as much. also advised pt could use bactroban in nares to help nasal lining sxs as well for a few days [id number] Peyman Healy MD Main Office [address] [facility] [address] [place] [address] 02/11/2018 15:00:11 02/11/2018 16:22:57 Adult health examination 086702823 Z00.00 Tobacco de pendence syndrome 12736308 F17.290 Reviewed motivation s for smoking cessation. Advised about benefits of stopping smoking. Generalize d anxiety disorder 32467898 F41.1 Irritable bowel syndrome 16920098 K58.9 Body mass index 25-29 - overweight 065588579 E66.3 Z68.25 Hyperlipidemia 92065283 E78.5 Fatigue 03891318 R53.83 Greater tr ochanteric pain syndrome 6580829 M70.62 Neck pain 34382703 M54.2 Inflammati on of sacroiliac joint 60582035 M46.1 [id number] Lynda Barros Main Office [address] [address] [place] [address] 04/19/2018 10:32:33 04/19/2018 12:00:32 Needs influenza immunization 303386937 Z23 had flu shot last week -- flu shot NOT given today Cough 16642154 R05 suspect early pna - will check cxr and give abx proactivel y Infective pneumonia 3123 11662 J18.9 rec probiotics while on abx, also rec proair and peace -- see below [id number] Sim Garcia MD Main Office [address] [facility] [address] [place] [address] 09/02/2018 09:42:20 09/02/2018 10:35:38 Acute pharyngitis 242979813 J02.9 Based on risk score and recent exposure will cover for strep. D/C if culture is negative. Supportive /symptomat ic tx advised in meantime. Call inb/worse or if new symptoms develop. [id number] BRODY Roberts Main Office [address] [address] [place] [address] 02/14/2019 15:20:06 02/14/2019 16:13:10 Adult health examination 518464632 Z00.00 HM UTD, will check blood work. Tobacco de pendence syndrome 15489129 F17.290 Reviewed present motivation s for smoking cessation. Patient reports that being ready to attempt smoking cessation. Discussed options for support. Hyperlipidemia 01429667 E78.5 Family his tory of Thyroid disorder 951035728 Z83.49 [id number] Allan De Oliveira PA-C Main Office [address] [address] [place] [address] 06/14/2019 09:04:31 06/14/2019 10:28:17 Pain in left foot 1029671401 92214 M79.672 pt c/o pain at top of [...] above pain encouraged pt to f/u c trestleman as well - cont orthotics as per trestleman [id number] Melina Mckay Main Office [address] [address] [place] [address] 08/28/2019 15:25:19 08/28/2019 16:54:55 Acute pharyngitis 400123928 J02.9 steam, salt water gargles several times a day, otc pain reliever as needed. Call if sx persist, regular TC sent out Eustachian tube disorder 91866467 H69.93 gargles, hydration try flonase once a day, call if ear pain persists; no evidence of otitis media today. [id number] BRODY Roberts Main Office [address] [address] [place] [address] 03/26/2020 10:23:16 03/26/2020 11:21:36 Adult health examination 682719819 Z00.00 HM UTD, will check blood work. Needs infl uenza immunization 349111963 Z23 Elevated blood-pressure reading without diagnosis of hypertension 302510152 R03.0 Irritable bowel syndrome 50383767 K58.9 Body mass index 25-29 - overweight 150411793 Z68.28 E66.3 Screening for cardiovascular system disease 437596144 Z13.6 Major depr ession single episode, in partial remission 37303051 F32.4 [id number] Melina Mckay Main Office [address] [address] [place] [address] 05/27/2020 10:30:41 05/27/2020 11:38:57 Strain of muscle of right shoulder 3061883176 3136550 S46.911A check xray of shoulder, rest, no sling, keep gentle ROM if xray negative, can use OTC pain reliever, Start PT belen. If worsening to call. Out of work for 1 week, if needs more time will call Use ice x 24-48 hours, then ice/heat. Inflammati on of sacroiliac joint 63517965 M46.1 Rest, stretching , change position frequently , will call if any worsening sx. [id number] BRODY Roberts Main Office [address] [address] [place] [address] 07/23/2020 14:49:33 07/23/2020 15:25:15 Otalgia 69250429 H92.02 Left ear pain but it hurts if she swallows, turns her head, yawns ect. suspect related to lymph node. Cervical lymphadenopathy 962755196 R59.0 left anterior cervical node tenderness , swelling. causes ear pain. Exposure t o viral disease 3864113140 74115 Z03.818 had temp 99.5 today. has had chills/ feeling hot and cold, very fatigued. she did have moderna covid vaccine 07/03 and had side effects to that which have resolved. 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 Plantar fa sciitis of left foot 0536806084 0235167 M72.2 Patient has tried exercises and Boot at night with no improvemen t.Will refer to podiatry to consider injections . Patient is establishe d with [facility] and I advised her to call for apt. Pain in left foot 248763 5999 40589 M79.672 DDx include neuroma, nerve entrapment .Patient [...] she has. Patient is establishe d with [facility] and I advised her to call.No xray at this time as she does not meet pokagon criteria for xray. [id number] Lynda Barros [facility] [address] [facility] [address] [facility] [address] 10/02/2020 11:39:51 10/02/2020 15:16:28 Diarrhea 30403501 R19.7 has resolved but nausea persists. Abdominal pain 94537278 R10.9 Exposure t o viral disease 6087367229 61176 Z03.818 Nausea 336245218 R11.0 use as needed Primary bi liary cholangitis 86404106 K74.3 on ursodiol taking med as directed. Renal cell carcinoma [address] in October. [id number] BRODY Roberts Main Office [address] [facility] [address] [place] [address] 03/27/2021 08:31:51 03/27/2021 09:24:31 Adult health examination 203036308 Z00.00 UTD, has bloodwork regularly for her kidney/ ct scans Elevated blood-pressure reading without diagnosis of hypertension 008956823 R03.0 BP normal manually Renal cell carcinoma 702 728085 C64.9 Followed by urology, 1 kidney Primary bi liary cholangitis 90865021 K74.3 on ursodiol taking med as directed. Generalize d anxiety disorder 87936380 F41.1 on sertraline , considerin g weaning off. she will go to 25mg for now through the winter Administra tion of viral vaccine 82128612 Z23 [id number] Livan Fatima MD Main Office [address] [facility] [address] [place] [address] 03/31/2021 13:28:41 03/31/2021 14:16:10 Cellulitis of left upper limb 6901973958 8510548 L03.114 NSAIDs for pain and swelling and ice. May not be an infection but instead may be a local reaction to the immunizati on. She will call if she develops diarrhea because of her h/o c. dif. [id number] BRODY Roberts Main Office [address] [facility] [address] [place] [address] 09/12/2021 10:16:27 09/12/2021 10:46:05 Low back pain 249469791 M54.50 low back pain, will tx with prednisone burst and flexeril as needed. no driving or alcohol with med. Heat to area as needed. stretching as tolerated. if sx persist will need imaging. Call or return for worsening or concerns. History of malignant neoplasm of kidney 115993197 Z85.528 renal cell carcinoma, left kidney. nephrectom y. Primary bi liary cholangitis 96242123 K74.3 on ursodiol taking med as directed. [id number] Lynda Barros [facility] 36[address] [facility] [address] [place] [address] 12/24/2021 09:23:33 12/24/2021 11:19:34 Cough 94642446 R05.1 Pneumonia 388469675 J18. 9 will send over Zpak to [...] no role for CXR at this time [id number] Noah Sanchez [facility] Main Office [address] [facility] [address] [place] [address] 04/21/2022 13:10:00 04/21/2022 14:08:51 Pre-surgery evaluation 018264616 Z01.818 Having right topaz plantar fasciotomy with Dr. Rodriguez on 05/06/22. Labs pending, EKG NSR- no acute ST abnormalit y. 04/29/22: Labs stable, EKG normal.Acc ording to Brigida Diana-opera tive Risk Assessment , based on patient's age, creatinine , ASA class and surgical procedure, patient has a? ? ? 0.4% risk of diana-opera tive myocardial infarction or cardiac arrest.? ? ?no further work-up necessary, may proceed with surgery as scheduled. Renal cell carcinoma 702 819637 C64.9 Followed by urology, 1 kidney Elevated blood-pressure reading without diagnosis of hypertension 546821769 R03.0 BP normal manually Primary bi liary cholangitis 05282086 K74.3 on ursodiol taking med as directed. Fibromatos is of plantar fascia of right foot 7926279384 5174537 M72.2 having fasciotomy Hyperlipidemia 70923080 E78.5 Fatigue 21113717 R53.83 Impaired f asting glycemia 269506851 R73.01 Generalize d anxiety disorder 16185889 F41.1 she will go to 25mg daily x 2 weeks. [id number] [facility] Main Office [address] [place] [address] 04/23/2022 10:39:54 04/23/2022 11:22:36 Adult health examination 429054609 Z00.00 HM due for mammo and pap- she will schedule, colonoscop y due in 2026. Flu shot today. Bloodwork was done this morning, pending results. Needs infl uenza immunization 680157445 Z23 Fibromatos is of plantar fascia of right foot 9403342277 0764777 M72.2 having fasciotomy Primary bi liary cholangitis 02641152 K74.3 on ursodiol taking med as directed. Renal cell carcinoma 702 609552 C64.9 Followed by urology, 1 kidney Generalize d anxiety disorder 91833861 F41.1 Continue sertraline 25mg daily x 2 weeks, then cut tab in half and take 12.5mg daily x 2 weeks.then will take 6.25mg daily x 1 week then stop medication .If any trouble stopping med please call/ return Pain of le ft hip joint 3533430592 83766 M25.552 [id number] Susan De Oliveira PA-C Main Office [address] [address] 03/16/2023 10:12:04 03/16/2023 10:58:48 Viral upper respiratory tract infection 648759892 J06.9 Pt. is advised to increase hydration and rest, add otc decongesta nts such as Delsym, diphenhydr amine. Nasal saline or saline rinse. [id number] Lynda Barros Main Office [address] [address] 04/27/2023 08:48:38 04/27/2023 09:46:23 Adult health examination 695361704 Z00.00 HM- UTD, pap, mammo and colo UTD. Fibromatos is of plantar fascia of right foot 9579177249 8756200 M72.2 had fasciotomy last May, still has pain and now has chronic tendinitis . Primary bi liary cholangitis 82404065 K74.3 on ursodiol taking med as directed. Generalize d anxiety disorder 47852713 F41.1 Continue sertraline 25mg daily Hyperlipidemia 01628313 E78.5 Impaired f asting glycemia 542970607 R73.01 Fatigue 78759458 R53.83 Body mass index 30+ - obesity 441010251 Z68.34 Elevated blood-pressure reading without diagnosis of hypertension 942725493 R03.0 BP manually 136/80, thi is elevated for her and was elevated at her last visit. She will work on cutting back on sodium, drinking more water and starting to walk again. F/U in 1 month for recheck. History of malignant neoplasm of kidney 101799792 Z85.528 Followed by urology, 1 kidney, had CT scan in October Obesity 723182067 E66.9 [id number] Noah Sanchez [facility] Main Office [address] [facility] [address] [place] [address] 07/13/2023 11:12:57 07/13/2023 11:59:34 Fever 813525193 R50.9 + covid, continue tylenol or nyquil/ dayquil Cough 47718322 R05.9 COVID-19 523029977 U07.1 Covid positive in office, this is [...] any resp distress, severe or worsening sx. [id number] Noah Sanchez [facility] Main Office [address] [facility] [address] [place] [address] 05/02/2024 15:16:10 05/02/2024 15:45:05 Adult health examination 138893811 Z00.00 HM- UTD, pap, mammo and colo UTD. Primary bi liary cholangitis 96084323 K74.3 on ursodiol taking med as directed. History of malignant neoplasm of kidney 731510168 Z85.528 Followed by urology, 1 kidney, had CT scan in October- all good. Generalize d anxiety disorder 73467711 F41.1 Continue sertraline 25mg daily Hyperlipidemia 14270299 E78.5 Impaired f asting glycemia 213644239 R73.01 Fatigue 14117342 R53.83 Elevated blood-pressure reading without diagnosis of hypertension 763718884 R03.0 BP manually 120/66 Obesity 356042053 E66.9 Body mass index 30+ - obesity 593631162 Z68.34 Vitamin D deficiency 347 25964 E55.9 [id number] BRODY Roberts Main Office [address] [facility] [address] [place] [address] 07/06/2024 10:28:25 07/06/2024 11:31:13 Cough 06325615 R05.9 declines cough med currently, neg flu and covid. +OM Acute righ t otitis media 839292183 H66.91 Hydration, rest, tylenol as needed, tea [...] Name 03/16/2023 1 [employer] [place] [id number] Tere A Vernon [id number] 84 Tere A Vernon 04/27/2023 1 [employer] [place] [id number] Tere A Vernon [id number] 84 Tere A Vernon 07/13/2023 1 [employer] [place] [id number] Tere A Vernon [id number] 84 Tere A Vernon 05/02/2024 1 [employer] [place] [id number] Tere A Vernon [id number] 84 Tere A Vernon 07/06/2024 1 [employer] [place] [id number] Tere A Vernon [id number] 84 Tere Junior Notes Date Note Type Note Provider Name and Address Organization Details Recorded Time 03/16/2023 text/html 48 year old fema le c/o 3 day onset of sinus congestion, fatigue, body aches and headache. Tested neg for COVID. Pt. denies fever or chills. NO cough. C/o ear fullness. NO sore throat reported, but postnasal secretions. NO facial pain. Susan De Oliveira PA-C [address] [address], [place], [address], [facility] 03/16/2023 12:05:23 04/27/2023 text/html Generic [...] cut out afternoon coffee, stress Lynda ortega, [facility] 04/27/2023 15:30:51 07/13/2023 text/html Generic HPI TemplateReported bypatient.Notes:Sx started wednesday- body aches, couldn't sleep, chills, fever, congestion, couhg with production, slight SOB with activity, no N/V/D, no sore throat, ear pain, no headache. neg covid- this morning.Neg flu test here.Taking nyquil and dayquil with some relief. - feels like chest hurts. BRODY Roberts [address] [address], [place], [address], [facility] 07/13/2023 12:14:09 05/02/2024 text/html Generic HPI TemplateReported bypatient.Notes:Presen ts for PE,No concerns but BP is high. No headaches, sometimes does get chest discomfort at random times, no palpitationshas lost 4 lbs and 13 inches since January. is having hot flashes, night sweats, mood changes BRODY Roberts [address] [address], [place], [address], [facility] 05/02/2024 16:02:35 07/06/2024 text/html Generic HPI TemplateReported bypatient.Notes:Sx started Wednesday- body aches, chills, low grade temp, cough, dry for now but feels congestion, nasal congestion- yellow, sinus pressure/ pain, teeth pain, ear pain and blocked- bilateral, no N/V/D.No sick contacts BRODY Roberts [address] [address], [place], [address], [facility] 07/06/2024 12:04:20 OBGyn Episode No OBEpisode recorded.
[2024-10-20 14:12] LABS: Anion Gap 12 (12-20); Blood Urea Nitrogen 20 mg/dL (9-16); Calcium 9.5 mg/dL (8.4-10.2); Carbon Dioxide 29 mmol/L (22-29); Chloride 108 mmol/L (96-108); Estimated Glomerular Filt Rate 59; Glucose Random 72 mg/dL (60-115); Potassium 4.6 mmol/L (3.3-5.1); Sodium 144 mmol/L (135-145)
== END 2024-10-20 12:05 | disposition home or self-care (01) ==
LOC: HO.LAB 12:04
PROVIDERS: PCP Physician Assistant Medical; Visit Provider Urology
DX: C64.9 Malignant neoplasm of unspecified kidney, except renal pelvis (principal)
CPT/HCPCS: 36415; 80048

== ENCOUNTER 2025-02-21 12:35 | Outpatient (AMB) | payer OTHER, SELFPAY ==
--- NOTE | 2025-02-21 12:52 | MHC.OFFVIS ---
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 States symptoms started approx 8 months ago and has worsen. Both hands are bad but her left is worse. States this is waking her up at night time. She wears hand braces with no relief. States symptoms comes and goes thought out the day. She is not able to take most medication due yo having 1 kidney. No EMG done. Denies locking of any finger. 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 She complains of numbness in her bilateral hands, L>R. She has numbness in her thumb to ring fingers. Symptoms intermittent, but daily, worse at night. Her symptoms have been present for ~8 months. She finds limited relief from bracing at night and says her numbness wakes her up at night. She denies any small finger numbness. She denies any locking or catching. She says she was told she had cubital tunnel in her right arm, but denies any small finger numbness. She has a Hx of a nephrectomy and says she cannot take many medications due to having only one Kidney. 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 Review of Systems Const All systems reviewed & are unremarkable except as noted in HPI and below Physical Exam Vital Signs: BMI result Body Mass Index 34.7 Const General: cooperative, healthy appearing and no acute distress Orientation/consciousness: patient oriented x3 HEENT Head: Yes normocephalic and Yes atraumatic Eyes EOM: EOMs intact bilaterally Resp Effort & Inspection: normal respiratory effort and able to speak in complete sentences Cardio Jugular venous distension: no JVD Skin General skin exam: turgor normal Rashes: no rashes Neuro General: patient oriented x3 Extrem Other: Evaluation of Bilateral Upper Extremity: The patient is alert, oriented, and in no acute distress Neuro: Decreased subjective sensation in the left index, middle and ring fingers. Normal sensation to all other digits bilaterally today in clinic No thenar or intrinsic wasting Good APB muscle belly firing and good finger cross Vascular: Cap refill brisk ROM: She can make a fist and extend all her digits No locking or catching Skin: No lacerations or abrasions. General: No Ecchymosis. No Erythema or evidence of infection. Nerve Conduction Study: Psych Appearance: grossly normal Affect: normal affect Attitude: cooperative Assessment & Plan Assessment & Plan (1) Numbness and tingling in both hands: Code(s): R20.0 - Anesthesia of skin; R20.2 - Paresthesia of skin Category: Medical Plan Assessment & Plan: 1. Bilateral hand numbness, L>R In the median nerve distribution & ring finger Symptoms intermittent, but daily, worse at night Some constant numbness developing in the left index, middle, and ring fingers I educated her about carpal & cubital tunnel syndrome I ordered a NCS to assess for peripheral nerve compression She will follow up when completed for review Scribed for Jolie Hoover MD by Raúl Ruth, medical practitioners, on 02/21/25 at 1:05 PM, EST. Orders: Orders NE electromyogram (EMG) Today R20.0 - Anesthesia of skin, R20.2 - Paresthesia of skin NE nerve conduction velocity Today R20.0 - Anesthesia of skin, R20.2 - Paresthesia of skin Coding Level of Care Code New Pt Level 3 (43232) Diagnoses Numbness and tingling in both hands R20.0; R20.2
[2025-02-21 12:57] VITALS: BMI 34.7
--- OUTSIDE RECORDS SUMMARY | 2025-02-21 13:27 | XMS_ITS | Patient Health Record ---
[facility] Address [address] [place] [address] Care Team Providers Care Hoop Flaring Machine Operator Helper Name Role Phone Noah Sanchez PA-C Primary Care Provider Ludivina Jewell Unavailable [phone] Allergies Allergen (clinical drug ingredient) Drug/Non Drug [...] Multivitamin Active Walking Boot/Pneumatic As directed Wear Daily; Duration: Until further notice 07/04/2019 Not-Taking Shoes . . . Medically necess briana to wear walking cast boot at work as needed 07/26/2019 Not-Bj g Physical Therapy . . . 2-3x/week; Durat ion: 3-4 weeks 02/19/2022 Not-Taking Work Note . . . patient may retu rn to work on 02/23/22 in her cast boot at a reduced work schedule of 6 hours daily 02/19/2022 Not-Taking Walking Boot/Pneumatic As directed Wear Daily; Duration: Until further notice 02/05/2022 Not-Taking Work Note . . . patient must wea r cast boot to work and she will be disabled from work starting 02/09/22 for two weeks 02/05/2022 Not-Taking Work Note . . . patient continue s with disablility from work 03/26/2022 Active Work Note . . . 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 . . 2-3x/week; Durat ion: 3-4 weeks 07/24/2022 Active Sertraline HCl 25 MG 1 tablet Orally Onc e a day Active Physical Therapy . . . 2-3x/week; Durat ion: 3-4 weeks 10/16/2020 Not-Taking Ursodiol Active Hyoscyamine Sulfate 0.125 MG 1 tablet on the tongue and allow to dissolve as needed Orally every 4 hrs Not-Taking Work Note . . . 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
--- OUTSIDE RECORDS SUMMARY | 2025-02-21 13:27 | XMS_ITS | Clinical Summary ---
Author Organization [facility] [address] Address [address] [place] [address] Phone Care Team Providers Care Regulatory And Compliance Technician Name Role Phone Noah Sanchez Primary Care Provider [phone] Allergies Active Allergy Reactions Criticality Noted Date [...] Medical History Date Comments Primary biliary cholangitis ([facility] V24, [facility] V28) 06/2019 Alk phos 290 +AMA 157.5 [...] - 19+ 3-dose series) 1994 Pneumococcal Vaccine: 50+ Years (1 of 2 - PCV) 1994 Cervical Cancer Screening: Pap Smear 02/02/1996 COVID-19 Vaccine ( - 2023- season) 2024 07/31/2020, 07/03/2020 Colorectal Cancer Screening: Colonoscopy 04/29/2024 HIV Screening 04/29/2024 Hepatitis C Screening 04/29/2024 Social Influencers of Health Screening 04/29/2024 Depression Screening 07/05/2024 Zoster Vaccines (1 of 2) 2025 Influenza Vaccine (#1) 2025 , 04/21/2023, 04/23/2022, Additional history exists DTaP,Tdap,and Td Vaccines (2 - Td or Tdap) 03/27/2031 03/27/2021 HIB Vaccines Aged Out No longer eligi [...] patient's age to complete this topic Insurance [employer] [facility] Care Teams Regulatory And Compliance Technician Relationship Specialty Start Date End Date Noah Sanchez PA [address] [phone] PCP - General Physician Naval Inspector 04/28/24
== END 2025-02-21 13:20 | disposition home or self-care (01) ==
LOC: HO.HOS 12:35
PROVIDERS: PCP Physician Assistant Medical; Visit Provider Orthopaedic Surgery
DX: R20.0 Anesthesia of skin (principal); R20.2 Paresthesia of skin
CPT/HCPCS: 99203

== ENCOUNTER 2025-04-02 12:02 | Outpatient (REF) | payer OTHER, SELFPAY ==
--- OUTSIDE RECORDS SUMMARY | 2025-04-02 13:23 | XMS_ITS | Patient Health Record ---
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 . [...] . 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
--- OUTSIDE RECORDS SUMMARY | 2025-04-02 13:24 | XMS_ITS | Data Portability ---
Author Organization [facility], Main Office Address [address] [facility] [address] [place] [address] Care Team Providers Care [employer] Officer Name Role Phone LAURA NAIK Fur Glazer SANDRA NIETO Stockbroker GILMER MARTINO Search Engine Optimization Analyst [phone] ODILIA DOYLE Urologist TRESA BERRY Urologist ALLAN DE OLIVEIRA Primary Care Provider [phone] Assessment No assessment recorded. Plan of Treatment Reminders Order Date Submit Date Provider Last Modified By Organization Details Last Modified Time Details Appointments PE EST 2024 08:45A M Allan De Oliveira PAKatarzyna Not available Not available Not available Lab ed Muñoz, 25-hyd tim, total, serum 2024 025 [facility] (Lab), [address] [place] [address], [address], 11/29/2024 12:06:32 TSH, serum or plasma 2024 025 [facility] (Lab), [address] [place] [address], [address], 11/28/2024 10:16:46 lyme antibo dy screen , EIA/el josesito, serum 2024 025 [facility] (Lab), [address] [place] [address], [address], 11/28/2024 10:16:46 C-reac tive protei n, quanti tative , serum or plasma 2024 025 [facility] (Lab), [address] [place] [address], [address], 11/28/2024 10:18:19 ESR (eryth rocyte sedime ntatio n rate), blood 2024 025 [facility] (Lab), [address] [place] [address], [address], 11/29/2024 12:06:33 CMP, serum or plasma 2024 025 [facility] (Lab), [address] [place] [address], [address], 11/29/2024 12:06:30 CBC 2024 025 [facility] (Lab), [address] [place] [address], [address], 11/28/2024 10:18:19 rapid flu (A+B) 2024 025 [facility] In-Office Order, Internal Use Only DO Not Attach Compendium DO Not Attach Compendium, Do Not Delete/merge, [id number] 07/06/2024 11:16:34 rapid SARS CoV 2 Ag, QL [place], respir atory specim en 2024 025 [place] In-Office Order, Internal Use Only DO Not Attach Compendium DO Not Attach Compendium, Do Not Delete/merge, [id number] 07/06/2024 11:09:10 CMP, serum or plasma 2023 024 [facility] (Lab), [address] [place] [address], [address], 05/12/2024 11:32:57 lipid panel, serum 2023 024 [facility] (Lab), [address] [place] [address], [address], 05/12/2024 11:32:57 TSH, serum or plasma 2023 024 [facility] (Lab), [address] [place] [address], [address], 11/29/2024 09:28:10 T4, free, serum 2023 024 [facility] (Lab), [address] [place] [address], [address], 05/02/2024 15:28:53 HbA1c (hemog lobin A1c), blood 2023 024 [facility] (Lab), [address] [place] [address], [address], 05/02/2024 15:28:52 vitami n D, 25-hyd tim, total, serum 2023 024 [facility], [address], [place], [address], 07/31/2024 09:12:11 CBC w/ auto diff 2023 024 [facility] (Lab), [address] [place] [address], [address], 11/29/2024 12:06:29 rapid flu (A+B) 2023 024 [facility] In-Office Order, Internal Use Only DO Not Attach Compendium DO Not Attach Compendium, Do Not Delete/merge, [id number] 07/13/2023 11:40:33 rapid SARS CoV 2 Ag, QL [place], respir atory specim en 2023 024 [facility] In-Office Order, Internal Use Only DO Not Attach Compendium DO Not Attach Compendium, Do Not Delete/merge, [id number] 07/13/2023 12:02:21 CMP, serum or plasma 2022 023 [facility] (Lab), [address] [place], [address], 05/05/2023 11:26:05 lipid panel, serum 2022 023 [facility] (Lab), [address] [place], [address], 05/05/2023 11:26:06 TSH, serum or plasma 2022 023 [facility] (Lab), [address] [place], [address], 05/06/2023 11:55:36 T4, free, serum 2022 023 [facility] (Lab), [address] [place], [address], 04/27/2023 09:18:01 HbA1c (hemog lobin A1c), blood 2022 023 [facility] (Lab), [address] [place], [address], 04/27/2023 09:18:01 CBC w/ auto diff 2022 023 [facility] (Lab), [address] [place], [address], 04/27/2023 09:18:01 Referral None record ed. Procedures None record ed. Surgeries None record ed. Imaging XR, chest - cough, fever, chills , chest pain, r/o PNA 2023 024 [facility] (Imaging), [address] [place], [address], 07/13/2023 13:39:20 electr ocardi ogram 2022 023 [email or web address] In-Office Order, Internal Use Only DO Not Attach Compendium DO Not Attach Compendium, Do Not Delete/merge, [id number] 04/27/2023 09:46:23 Medication Orders clarit hromyc in 500 mg tablet 2024 025 [id number], [address] [place], [address], 11/28/2024 09:35:26 sertra line 25 mg tablet 2023 024 [facility], [address] [place], [address], 05/02/2024 15:27:20 Patient TargetsNo targets recorded. Patient Instructions Encounter Date Encounter Id Patient Instructions Last Modified By Organization Details Last Modified Time 04/27/2023 [id number] dash diet: care instructions [email or web address] Not available 04/27/2023 09:52:40 high blood pressure: care instructions jthabet Not available 04/27/2023 09:52:41 low sodium diet (2,000 milligram): care instructions jthabet Not available 04/27/2023 09:52:40 starting a weight loss plan: care instructions nbarrows Not available 04/27/2023 15:30:46 To call or return for worsening or concerns jthabet Not available 04/27/2023 09:15:56 07/13/2023 [id number] 10 things to do when you have covid-19 jthabet Not available 07/13/2023 12:12:37 coronavirus (covid-19): care instructions jthabet Not available 07/13/2023 12:12:37 To call or return for worsening or concerns jthabet Not available 07/13/2023 12:13:59 05/02/2024 [id number] dash diet: care instructions jthabet Not available 05/02/2024 15:27:17 high blood pressure: care instructions jthabet Not available 05/02/2024 15:27:17 low sodium diet (2,000 milligram): care instructions jthabet Not available 05/02/2024 15:27:17 starting a weight loss plan: care instructions jthabet Not available 05/02/2024 15:27:16 To call or return for worsening or concerns jthabet Not available 05/02/2024 15:32:51 07/06/2024 [id number] To call or return for worsening or concerns jthabet Not available 07/06/2024 11:04:41 11/28/2024 [id number] myalgic encephalomyeliti s/chronic fatigue syndrome: care instructions marianneeraquentin Not available 11/28/2024 10:15:41 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 None Reported. Results Created Date Observation Date Name Description Value Unit Range Abnormal Flag Note LastModifiedBy Organization Detail LastModifiedTime 07/13/19 24 07/13/2023 rapid SARS CoV 2 Ag, QL [place], respi rator y speci men RAPID SARS COV 2 positi ve Not Available In-Office Order Internal Use Only DO Not Attach Compendium DO Not Attach Compendium, Do Not Delete/merge, [id number] 07/13/2023 11:48:22 07/13/19 24 07/13/2023 rapid flu (A+B) Flu A negati ve Not Available In-Office Order Internal Use Only DO Not Attach Compendium DO Not Attach Compendium, Do Not Delete/merge, [id number] 07/13/2023 11:21:58 07/13/19 24 07/13/2023 rapid flu (A+B) Flu B negati ve Not Available In-Office Order Internal Use Only DO Not Attach Compendium DO Not Attach Compendium, Do Not Delete/merge, [id number] 07/13/2023 11:21:58 07/06/19 25 07/06/2024 rapid flu (A+B) Flu A negati ve Not Available In-Office Order Internal Use Only DO Not Attach Compendium DO Not Attach Compendium, Do Not Delete/merge, [id number] 07/06/2024 10:50:01 07/06/19 25 07/06/2024 rapid flu (A+B) Flu B negati ve Not Available In-Office Order Internal Use Only DO Not Attach Compendium DO Not Attach Compendium, Do Not Delete/merge, [id number] 07/06/2024 10:50:01 07/06/19 25 07/06/2024 rapid SARS CoV 2 Ag, QL IA, respi rator y speci men RAPID SARS COV 2 negati ve Not Available In-Office Order Internal Use Only DO Not Attach Compendium DO Not Attach Compendium, Do Not Delete/merge, [id number] 07/06/2024 10:50:14 11/29/1911/29/2024 CBC WITH DIFFE RENTI AL/PL ATELE T WBC 9.1 x10e3 /uL 3.4-10 .8 normal Not Available [facility] ([facility]) [address] [facility] [place], [place], [address], 11/29/2024 12:06:29 11/29/1911/29/2024 CBC WITH DIFFE RENTI AL/PL ATELE T RBC 5.05 x10e6 /uL 3.77-5 .28 normal Not Available [facility] ([facility]) [address] [place], [address], 11/29/2024 12:06:29 11/29/1911/29/2024 CBC WITH DIFFE RENTI AL/PL ATELE T hemoglobin 13.2 g/dL 11.1-1 5.9 normal Not Available [facility] ([facility]) [address] [place], [address], 11/29/2024 12:06:29 11/29/1911/29/2024 CBC WITH DIFFE RENTI AL/PL ATELE T hematocrit 41.4 % 34.0-4 6.6 normal Not Available [facility] ([facility]) [address] [place], [address], 11/29/2024 12:06:29 11/29/1911/29/2024 CBC WITH DIFFE RENTI AL/PL ATELE T MCV 82 fL 79-97 normal Not Available [facility] ([facility]) [address] [place], [address], 11/29/2024 12:06:29 11/29/19 25 11/29/2024 CBC WITH DIFFE RENTI AL/PL ATELE T MCH 26.1 pg 26.6-3 3.0 below low normal Not Available [facility] ([facility]) [address] [facility] [place], [place], [address], 11/29/2024 12:06:29 11/29/1911/29/2024 CBC WITH DIFFE RENTI AL/PL ATELE T MCHC 31.9 g/dL 31.5-3 5.7 normal Not Available [facility] ([facility]) [address] [facility] [place], [place], [address], 11/29/2024 12:06:29 11/29/19 25 11/29/2024 CBC WITH DIFFE RENTI AL/PL ATELE T RDW 13.5 % 11.7-1 5.4 Not Available [facility] ([facility]) [address] [facility] [place], [place], [address], 11/29/2024 12:06:29 11/29/19 25 11/29/2024 CBC WITH DIFFE RENTI AL/PL ATELE T platelets 387 x10e3 /uL 150-45 0 normal Not Available [facility] ([facility]) [address] [facility] [place], [place], [address], 11/29/2024 12:06:29 11/29/19 25 11/29/2024 CBC WITH DIFFE RENTI AL/PL ATELE T neutrophils 57 % not estab. normal Not Available [facility] ([facility]) [address] [place], [address], 11/29/2024 12:06:29 11/29/19 25 11/29/2024 CBC WITH DIFFE RENTI AL/PL ATELE T lymphs 28 % not estab. normal Not Available [facility] ([facility]) [address] [place], [address], 11/29/2024 12:06:29 11/29/19 25 11/29/2024 CBC WITH DIFFE RENTI AL/PL ATELE T monocytes 9 % not estab. normal Not Available [facility] ([facility]) [address] [place], [address], 11/29/2024 12:06:29 11/29/19 25 11/29/2024 CBC WITH DIFFE RENTI AL/PL ATELE T eos 5 % not estab. normal Not Available [facility] ([facility]) [address] [place], [address], 11/29/2024 12:06:29 11/29/1911/29/2024 CBC WITH DIFFE RENTI AL/PL ATELE T basos 1 % not estab. normal Not Available [facility] ([facility]) [address] [place], [address], 11/29/2024 12:06:29 11/29/19 25 11/29/2024 CBC WITH DIFFE RENTI AL/PL ATELE T immature cells TELEVISION MECHANIC Not Available [facility] ([facility]) [address] [place], [address], 11/29/2024 12:06:29 11/29/19 25 11/29/2024 CBC WITH DIFFE RENTI AL/PL ATELE T neutrophils (absolute) 5.3 x10e3 /uL 1.4-7. 0 normal Not Available [facility] ([facility]) [address] [place], [address], 11/29/2024 12:06:29 11/29/19 25 11/29/2024 CBC WITH DIFFE RENTI AL/PL ATELE T lymphs (absolute) 2.5 x10e3 /uL 0.7-3. 1 normal Not Available [facility] ([facility]) [address] [place], [address], 11/29/2024 12:06:29 11/29/19 25 11/29/2024 CBC WITH DIFFE RENTI AL/PL ATELE T monocytes(ab solute) 0.8 x10e3 /uL 0.1-0. 9 normal Not Available [facility] ([facility]) [address] [place], [address], 11/29/2024 12:06:29 11/29/19 25 11/29/2024 CBC WITH DIFFE RENTI AL/PL ATELE T eos (absolute) 0.4 x10e3 /uL 0.0-0. 4 normal Not Available [facility] ([facility]) [address] [facility] [place], [place], [address], 11/29/2024 12:06:29 11/29/19 25 11/29/2024 CBC WITH DIFFE RENTI AL/PL ATELE T baso (absolute) 0.1 x10e3 /uL 0.0-0. 2 normal Not Available [facility] ([facility]) [address] [facility] [place], [place], [address], 11/29/2024 12:06:29 11/29/19 25 11/29/2024 CBC WITH DIFFE RENTI AL/PL ATELE T immature granulocytes 0 % not estab. Not Available [facility] ([facility]) [address] [facility] [place], [place], [address], 11/29/2024 12:06:29 11/29/1911/29/2024 CBC WITH DIFFE RENTI AL/PL ATELE T immature grans (abs) 0.0 x10e3 /uL 0.0-0. 1 Not Available [facility] ([facility]) [address] [facility] [place], [place], [address], 11/29/2024 12:06:29 11/29/1911/29/2024 CBC WITH DIFFE RENTI AL/PL ATELE T NRBC TELEVISION MECHANIC Not Available [facility] ([facility]) [address] [facility] [place], [place], [address], 11/29/2024 12:06:29 11/29/1911/29/2024 CBC WITH DIFFE RENTI AL/PL ATELE T hematology comments: TELEVISION MECHANIC Not Available [facility] ([facility]) [address] [facility] [place], [place], [address], 11/29/2024 12:06:29 11/29/19 25 11/29/2024 COMP. METAB OLIC PANEL (14) glucose 99 mg/dL 70-99 normal Not Available [facility] ([facility]) [address] [place], [address], 11/29/2024 12:06:30 11/29/19 25 11/29/2024 COMP. METAB OLIC PANEL (14) BUN 15 mg/dL 6-24 normal Not Available [facility] ([facility]) [address] [facility] [place], [place], [address], 11/29/2024 12:06:30 11/29/19 25 11/29/2024 COMP. METAB OLIC PANEL (14) creatinine 1.08 mg/dL 0.57-1 .00 above high normal Not Available [facility] ([facility]) [address] [facility] [place], [place], [address], 11/29/2024 12:06:30 11/29/19 25 11/29/2024 COMP. METAB OLIC PANEL (14) eGFR 63 mL/mi n/1.7 3 >59 normal Not Available [facility] ([facility]) [address] [place], [address], 11/29/2024 12:06:30 11/29/19 25 11/29/2024 COMP. METAB OLIC PANEL (14) BUN/creatini ne ratio 14 9-23 normal Not Available [facility] ([facility]) [address] [place], [address], 11/29/2024 12:06:30 11/29/19 25 11/29/2024 COMP. METAB OLIC PANEL (14) sodium 140 mmol/ L 134-14 4 normal Not Available [facility] ([facility]) [address] [place], [address], 11/29/2024 12:06:30 11/29/19 25 11/29/2024 COMP. METAB OLIC PANEL (14) potassium 5.1 mmol/ L 3.5-5. 2 normal Not Available [facility] ([facility]) [address] [place], [address], 11/29/2024 12:06:30 11/29/19 25 11/29/2024 COMP. METAB OLIC PANEL (14) chloride 101 mmol/ L 96-106 normal Not Available [facility] ([facility]) [address] [facility] [place], [address], 11/29/2024 12:06:30 11/29/19 25 11/29/2024 COMP. METAB OLIC PANEL (14) carbon dioxide, total 23 mmol/ L 20-29 normal Not Available [facility] ([facility]) [address] [facility] [place], [place], [address], 11/29/2024 12:06:30 11/29/19 25 11/29/2024 COMP. METAB OLIC PANEL (14) calcium 10.0 mg/dL 8.7-10 .2 normal Not Available [facility] ([facility]) [address] [place], [address], 11/29/2024 12:06:30 11/29/19 25 11/29/2024 COMP. METAB OLIC PANEL (14) protein, total 7.1 g/dL 6.0-8. 5 normal Not Available [facility] ([facility]) [address] [place], [address], 11/29/2024 12:06:30 11/29/19 25 11/29/2024 COMP. METAB OLIC PANEL (14) albumin 4.4 g/dL 3.9-4. 9 normal Not Available [facility] ([facility]) [address] [place], [address], 11/29/2024 12:06:30 11/29/19 25 11/29/2024 COMP. METAB OLIC PANEL (14) globulin, total 2.7 g/dL 1.5-4. 5 Not Available [facility] ([facility]) [address] [place], [address], 11/29/2024 12:06:30 11/29/19 25 11/29/2024 COMP. METAB OLIC PANEL (14) bilirubin, total 0.3 mg/dL 0.0-1. 2 normal Not Available [facility] ([facility]) [address] [place], [address], 11/29/2024 12:06:30 11/29/19 25 11/29/2024 COMP. METAB OLIC PANEL (14) alkaline phosphatase 145 IU/L 44-121 above high normal Not Available [facility] ([facility]) [address] [place], [address], 11/29/2024 12:06:30 11/29/19 25 11/29/2024 COMP. METAB OLIC PANEL (14) AST (SGOT) 27 IU/L 0-40 normal Not Available [facility] ([facility]) [address] [place], [address], 11/29/2024 12:06:30 11/29/19 25 11/29/2024 COMP. METAB OLIC PANEL (14) ALT (SGPT) 40 IU/L 0-32 above high normal Not Available [facility] ([facility]) [address] [facility] [place], [address], 11/29/2024 12:06:30 11/29/19 25 11/29/2024 TSH TSH 1.500 uIU/m L 0.450- 4.500 normal Not Available [facility] ([facility]) [address] [facility] [place], [address], 11/29/2024 12:06:31 11/29/19 25 11/29/2024 VITAM IN D, 25-HY DROXY vitamin D, 25-hydroxy 11.2 NG/mL 30.0-1 00.0 below low normal Vitam in D defic iency has been defin ed by the Insti tute of Medic ine and an Endoc rine Socie ty pract ice guide line as a level of serum 25-OH vitam in D less than 20 ng/mL (1,2) . The Endoc rine Socie ty went on to furth er defin e vitam in D insuf ficie ncy as a level betwe en 21 and 29 ng/mL (2). 1. IOM (Inst itute of Medic ine). 2010. Dieta ry refer ence intak es for calci um and D. Nicholas villa [place]: [facility] . 2. Charlotte white [place], Kelly hernandes [place], Ashley off-F errar i VIZCAINO, et al. Evalu ation , treat ment, and preve ntion of vitam in D defic iency : an Endoc rine Socie ty clini dheeraj pract ice guide line. JCEM. 2010; 96(7) :1911 -30. Not Available [facility] ([facility]) [address] [facility] [place], [place], [address], 11/29/2024 12:06:32 11/29/19 25 11/29/2024 LYME DISEA SE SEROL OGY W/REF RICARDO lyme total antibody chapito Negati ve negati ve Lyme antib odies not detec lexie. Refle x testi ng is not indic ated. No labor atory evide nce of infec tion with B. burgd orfer i (Lyme disea se). Negat cj resul ts may occur in patie nts recen tly infec lexie (less than or equal to 14 days) with B. burgd orfer i. If recen t infec tion is suspe cted, repea t testi ng on a new sampl e colle cted in 7 to 14 days is recom gigi d. Not Available [facility] ([facility]) [address] [facility] [place], [place], [address], 11/29/2024 12:06:32 11/29/19 25 11/29/2024 SEDIM ENTAT ION RATE- WESTE RGREN sedimentatio n rate-westerg angel 27 mm/HR 0-32 normal Not Available [facility] ([facility]) [address] [facility] [place], [place], [address], 11/29/2024 12:06:33 11/29/19 25 11/29/2024 C-SASHA CTIVE PROTE IN, QUANT C-reactive protein, quant 9 mg/L 0-10 normal Not Available [facility] ([facility]) [address] [facility] [place], [place], [address], 11/29/2024 12:06:34 04/27/2004/27/2023 elect rocar diogr am No observ ation record ed. [email or web address] In-Office Order Internal Use Only DO Not Attach Compendium DO Not Attach Compendium, Do Not Delete/merge, [id number] 04/27/2023 09:49:11 04/27/20 elect rocar diogr am No observ ation record ed. [email or web address] In-Office Order Internal Use Only DO Not Attach Compendium DO Not Attach Compendium, Do Not Delete/merge, [id number] 04/27/2023 09:39:42 07/13/19 24 07/13/2023 XR, chest No observ ation record ed. [facility] (Imaging) [address] [place], [address], 07/20/2023 08:53:36 08/24/19 24 08/24/2023 US, doppl er, venou s No observ ation record ed. [email or web address] [facility] (Medical Records) [address] [place], [address], 08/25/2023 08:42:01 08/30/19 24 08/30/2023 MAMMO , [...] Lay letter mailed to bert walker WSN: [id number] Orderi ng Physic yves: Laura LICONA, Ian Richard Dictat ed By: Leo Villaseñor MD Dictat ed Date/T sha: 4:38 pm Review ed By: Leo Villaseñor MD Signed By: Leo Villaseñor MD Signed Date/T sha: 4:38 pm Transc ribed By: CSB Transc riptio n Date/T sha: 1:13 pm Birads : Bert walker Class: Outpat ient [facility] (Outpt Imaging) [address] [facility], [place], [address], 08/31/2023 10:24:05 11/03/19 24 11/02/2023 CT, abdom en + pelvi s, w/ contr ast No observ ation record ed. [facility] [address], [place], [address], 11/03/2023 13:36:14 12/17/19 24 12/17/2023 XR, chest No observ ation record ed. [facility] (Medical Records) [address] [place], [address], 12/17/2023 14:14:49 06/14/20 24 12/17/2023 CT, abdom en + pelvi s, w/o contr ast No observ ation record ed. [email or web address] (Medical Records) [address] [facility], [place], [address], 12/20/2023 08:52:21 08/18/19 25 08/17/2024 Foot and Ankle outco me score No observ ation record ed. [email or web address] Not Available 2024 11:08:15 09/07/19 25 09/06/2024 MAMMO , scree orestes, bilat eral No observ ation record ed. [email or web address] [facility] [address] [place] [address] [place], [address], 09/12/2024 12:55:54 10/25/19 25 10/24/2024 CT, chest , w/ contr ast No observ ation record ed. [email or web address] [facility] [address] [facility] [address], [place], [address], 10/25/2024 19:39:59 10/31/19 25 10/27/2024 US, abdom en No observ ation record ed. [email or web address] [facility] [address], [place], [address], 11/14/2024 15:50:04 Result Notes Documentation Provider Name and Address Organization Details Recorded Time Mammo, Screening, Digital, Bilateral : PROCEDURE: MM Digital Mammo Screening INDICATION: Screening for breast cancer. No known palpable abnormalities. COMPARISON: Multiple prior studies dating back to 03/27/2019. TECHNIQUE: Full-field digital CC and MLO 3D tomosynthesis images of both breasts were acquired. Computer-aided detection (CAD) was utilized in the interpretation of this study. DENSITY: The breast tissue contains scattered areas of fibroglandular density. FINDINGS: No suspicious masses, suspicious microcalcifications, or areas of architectural distortion are seen in either breast to suggest malignancy. IMPRESSION: No mammographic evidence of malignancy. RECOMMENDATION: Annual mammographic screening BI-RADS: 1 (Negative) Lay letter mailed to patient WSN: [id number] Ordering Physician: Noah Miranda Dictated By: Sandra Villaseñor MD Dictated Date/Time: 08/30/23 4:38 pm Reviewed By: Sandra Villaseñor MD Signed By: Sandra Villaseñor MD Signed Date/Time: 08/30/23 4:38 pm Transcribed By: HEATHER Director Of Operations For Therapy Date/Time: 08/30/23 1:13 pm Birads: [facility] 10:24:05 Problems Name Problem SNOMED Code Status Onset Date Resolution Date Notes Provider Name and Address Organization Details Recorded Time Wheezing symptom [id number] Completed 12/30/2016 Peyman Healy MD [address], [place], [address], [facility] 7 10:24:02 Acute sinusiti s [id number] Completed 12/30/2016 Peyman Healy MD [address], [place], [address], [facility] 7 10:23:40 Acute asthma [id number] Completed 12/30/2016 Peyman Healy MD [address], [place], [address], [facility] 7 10:24:04 Acute allergic reaction [id number] Completed 12/30/2016 Peyman Healy MD [address], [place], [address], [facility] 7 10:23:59 Fatigue 21222128 Completed 12/30/2016 BRODY Roberts [address], [place], [address], [facility] 2 14:05:52 Irritabl e bowel syndrome [id number] Active Susan De Oliveira PA-C [address], [place], [address], [facility] 6 15:45:51 Acute pharyngi tis 194613478 Completed 12/30/2016 Peyman Healy MD [address] [address], [place], [address], [facility] 7 10:24:09 Pain in calf 835208160 Completed 12/30/2016 Peyman Healy MD [address] [address], [place], [address], [facility] 7 10:24:07 Synovial cyst of knee 003896834 Completed 12/30/2016 Peyman Healy MD [address] [address], [place], [address], [facility] 7 10:23:54 Lumbar sprain 498218554 Completed 12/30/2016 Peyman Healy MD [address] [address], [place], [address], [facility] 7 10:23:49 Sprain pelvic ligament 257582296 Completed 12/30/2016 Peyman Healy MD [address] [address] [address], [place], [address], [facility] 7 10:23:46 Inflamma tion of sacroili ac joint [id number] Completed 12/30/2016 Peyman Healy MD [address] [address], [place], [address], [facility] 7 10:24:21 Administ ration of bacteria l and viral vaccine Completed 201001/16/2014 RECORDED 09/20/19 11 1:19PM BY BABITA ANDERSON PA-C, OFFICE VISIT Susan De Oliveira PA-C [address] [address], [place], [address], [facility] 6 15:45:51 Administ ration of bacteria l and viral vaccine Completed 201002/08/2014 RECORDED 09/20/19 11 1:19PM BY BABITA ANDERSON PA-C, OFFICE VISIT Susan De Oliveira PA-C [address] [facility] [address], [place], [address], [facility] 6 15:45:51 Administ ration of bacteria l and viral vaccine Completed 201002/09/2014 RECORDED 09/20/19 11 1:19PM BY BABITA ANDERSON PA-C, OFFICE VISIT Susan De Oliveira PA-C [address] [facility] [address], [place], [address], [facility] 6 15:45:51 Acute pharyngi tis [id number] Completed 201101/16/2014 RECORDED 05/13/20 12 3:41PM BY ALLA BAUM MA, ISAIAHATI ON/ADDEN DUM Peyman Healy MD [address] [facility] [address], [place], [address], [facility] 7 10:24:09 Screenin g for malignan t neoplasm of cervix Completed 201101/16/2014 RECORDED 05/13/20 12 3:41PM BY ALLA BAUM MA, ANNOTATI ON/ADDEN DUM Susan De Oliveira PA-C [address] [facility] [address], [place], [address], [facility] 6 15:45:51 Epigastr ic pain [id number] Completed 201101/16/2014 IMPRESSI ON: PROBABLE GASTRITI S D/T RECENT NSAIDS AND PREDNISO NE TAPER, NO LONGER TAKING EITHER; RECORDED 05/13/20 12 3:41PM BY ALLA BAUM MA, ANNOTATI ON/ADDEN DUM Susan De Oliveira PA-C [address] [facility] [address], [place], [address], [facility] 6 15:45:51 Malaise and fatigue [id number] Completed 201101/16/2014 IMPRESSI ON: PER PT REPORT WITH SIG INCREASE D STRESS LEVELS RECENTLY . SEES THERAPIS T WEEKLY, REC INCREASI NG ZOLOFT DOSE. CHANGED FROM 25- 50 MG.; RECORDED 05/13/20 12 3:41PM BY ALLA BAUM MA, MARY CARMEN ON/ADDEN DUM Susan RHODESC [address], [place], [address], [facility] 6 15:45:51 Low back pain [id number] Completed 201101/16/2014 RECORDED 05/13/20 12 3:41PM BY ALLA BAUM MA, MARY CARMEN ON/ADDEN DUM BRODY Roberts [address] [facility] [address], [place], [address], [facility] 2 10:36:13 Adult health examinat ion Completed 201101/16/2014 RECORDED 05/13/20 12 3:41PM BY ALLA BAUM MA, MARY CARMEN ON/ADDEN DUM Diana martines MA [facility], [facility] 6 09:23:31 Shoulder joint pain [id number] Completed 201101/16/2014 STORY: R SIDED, X PAST [...] [address], [place], [address], [facility] 6 15:45:51 Disorder of upper respirat ory system Completed 201101/16/2014 RECORDED 05/13/20 12 3:41PM BY ALLA BAUM MA, MARY CARMEN ON/ADDEN DUM Susan RHODESC [address], [place], [address], [facility] 6 15:45:51 Acute upper respirat ory infectio n [id number] Completed 201101/16/2014 IMPRESSI ON: 5 DAYS, NO FEVERS AND NO FOCAL SIGNS ON EXAM. LIKELY VIRAL, ADVISED RE REST, FLUIDS AND OTHER SX SUPPORT. CALL FOR WORSENIN G/PRN.; RECORDED 05/13/20 12 3:41PM BY ALLA BAUM MA, MARY CARMEN ON/LUIS RHODESC [address] [facility] [address], [place], [address], [facility] 6 15:45:51 Vernal conjunct ivitis [id number] Completed 201101/16/2014 RECORDED 05/13/20 12 3:41PM BY ALLA BAUM MA, MARY CARMEN ON/LUIS RHODESC [address] [facility] [address], [place], [address], [facility] 6 15:45:51 Acute pharyngi tis [id number] Completed 201102/08/2014 RECORDED 05/13/20 12 3:41PM BY ALLA BAUM MA, MARY CARMEN ON/ADDEN GEORGE Healy MD [address] [facility] [address], [place], [address], [facility] 7 10:24:09 Screenin g for malignan t neoplasm of cervix Completed 201102/08/2014 RECORDED 05/13/20 12 3:41PM BY ALLA BAUM MA, MARY CARMEN ON/LUIS RHODESC [address] [facility] [address], [place], [address], [facility] 6 15:45:51 Epigastr ic pain [id number] Completed 201102/08/2014 IMPRESSI ON: PROBABLE GASTRITI S D/T RECENT NSAIDS AND PREDNISO NE TAPER, NO LONGER TAKING EITHER; RECORDED 05/13/20 12 3:41PM BY ALLA BAUM MA, ANNOTATI ON/ADDEN DUM Susan De Oliveira PA-C [address] [facility] [address], [place], [address], [facility] 6 15:45:51 Malaise and fatigue 243349407 Completed 201102/08/2014 IMPRESSI ON: PER PT REPORT WITH SIG INCREASE D STRESS LEVELS RECENTLY . SEES THERAPIS T WEEKLY, REC INCREASI NG ZOLOFT DOSE. CHANGED FROM 25- 50 MG.; RECORDED 05/13/20 12 3:41PM BY ALLA BAUM MA, ANNOTATI ON/ADDEN DUM Susan De Oliveira PA-C [address] [facility] [address], [place], [address], [facility] 6 15:45:51 Low back pain [id number] Completed 201102/08/2014 RECORDED 05/13/20 12 3:41PM BY ALLA BAUM MA, ANNOTATI ON/ADDEN DUM BRODY Roberts [address] [facility] [address], [place], [address], [facility] 2 10:36:13 Shoulder joint pain [id number] Completed 201102/08/2014 STORY: R SIDED, X PAST TWO WEEKS WITHOUT HX OF TRAUMA OR INJURY RECENT OR PAST. WITH ASSOCIAT ED WEAKNESS , MINIMAL RESP TO NSAID. WILL CONTACT [facility] TO SEE IF THEY ARE ABLE TO SEE HER SOON, IF NOT WILL CHECK XRAYS WHILE AWAITING APPT.; RECORDED 05/13/20 12 3:41PM BY ALLA BAUM MA, ANNOTATI ON/ADDEN DUM Susan De Oliveira PA-C [address] [facility] [address], [place], [address], [facility] 6 15:45:51 Disorder of upper respirat ory system Completed 201102/08/2014 RECORDED 05/13/20 12 3:41PM BY ALLA BAUM MA, ANNOTATI ON/ADDEN DUM [employer] [address], [place], [address], [facility] 6 15:45:51 Acute upper respirat ory infectio n [id number] Completed 201102/08/2014 IMPRESSI ON: 5 DAYS, NO FEVERS AND NO FOCAL SIGNS ON EXAM. LIKELY VIRAL, ADVISED RE REST, FLUIDS AND OTHER SX SUPPORT. CALL FOR WORSENIN G/PRN.; RECORDED 05/13/20 12 3:41PM BY ALLA BAUM MA, MARY CARMEN ON/ADDEN DUM Susan AndelC [address], [place], [address], [facility] 6 15:45:51 Vernal conjunct ivitis [id number] Completed 201102/08/2014 RECORDED 05/13/20 12 3:41PM BY ALLA BAUM MA, MARY CARMEN ON/ADDEN DUM Susan Andel [address], [place], [address], [facility] 6 15:45:51 Acute pharyngi tis [id number] Completed 201102/09/2014 RECORDED 05/13/20 12 3:41PM BY ALLA BAUM MA, ISAIAHATI ON/ADDEN GEORGE Healy MD [address] [facility] [address], [place], [address], [facility] 7 10:24:09 Screenin g for malignan t neoplasm of cervix Completed 201102/09/2014 RECORDED 05/13/20 12 3:41PM BY ALLA BAUM MA, ANNOTATI ON/ADDEN DUM Susan De Oliveira [employer] [address], [place], [address], [facility] 6 15:45:51 Epigastr ic pain [id number] Completed 201102/09/2014 IMPRESSI ON: PROBABLE GASTRITI S D/T RECENT NSAIDS AND PREDNISO NE TAPER, NO LONGER TAKING EITHER; RECORDED 05/13/20 12 3:41PM BY ALLA BAUM MA, MARY CARMEN ON/LUIS De Oliveira PA-C [address] [facility] [address], [place], [address], [facility] 6 15:45:51 Malaise and fatigue [id number] Completed 201102/09/2014 IMPRESSI ON: PER PT REPORT WITH SIG INCREASE D STRESS LEVELS RECENTLY . SEES THERAPIS T WEEKLY, REC INCREASI NG ZOLOFT DOSE. CHANGED FROM 25- 50 MG.; RECORDED 05/13/20 12 3:41PM BY ALLA BAUM MA, MARY CARMEN ON/ADDEN GEORGE De Oliveira PA-C [address] [facility] [address], [place], [address], [facility] 6 15:45:51 Low back pain [id number] Completed 201102/09/2014 RECORDED 05/13/20 12 3:41PM BY ALLA BAUM MA, MARY CARMEN ON/ADDEN DUM BRODY Roberts [address] [facility] [address], [place], [address], [facility] 2 10:36:13 Shoulder joint pain 444598480 Completed 201102/09/2014 STORY: R SIDED, X PAST TWO WEEKS WITHOUT HX OF TRAUMA OR INJURY RECENT OR PAST. WITH ASSOCIAT ED WEAKNESS , MINIMAL RESP TO NSAID. WILL CONTACT [facility] TO SEE IF THEY ARE ABLE TO SEE HER SOON, IF NOT WILL CHECK XRAYS WHILE AWAITING APPT.; RECORDED 05/13/20 12 3:41PM BY ALLA BAUM MA, MARY CARMEN ON/LUIS De Oliveira PA-C [address] [facility] [address], [place], [address], [facility] 6 15:45:51 Disorder of upper respirat ory system Completed 201102/09/2014 RECORDED 05/13/20 12 3:41PM BY ALLA BAUM MA, MARY CARMEN ON/ADDEN DUM Susan De Oliveira PA-C [address], [place], [address], [facility] 6 15:45:51 Acute upper respirat ory infectio n [id number] Completed 201102/09/2014 IMPRESSI ON: 5 DAYS, NO FEVERS AND NO FOCAL SIGNS ON EXAM. LIKELY VIRAL, ADVISED RE REST, FLUIDS AND OTHER SX SUPPORT. CALL FOR WORSENIN G/PRN.; RECORDED 05/13/20 12 3:41PM BY ALLA BAUM MA, MARY CARMEN ON/ADDEN DUM Susan De Oliveira PA-C [address], [place], [address], [facility] 6 15:45:51 Vernal conjunct ivitis [id number] Completed 201102/09/2014 RECORDED 05/13/20 12 3:41PM BY ALLA BAUM MA, MARY CARMEN ON/ADDEN DUM Susan De Oliveira PA-C [address], [place], [address], [facility] 6 15:45:51 Bronchit is [id number] Completed 201201/16/2014 RECORDED 07/28/19 13 1:45AM BY ALLA BAUM MA, ANNOTATI ON/ADDEN DUM Susan De Oliveira PA-C [address], [place], [address], [facility] 6 15:45:51 Bronchit is [id number] Completed 201202/08/2014 RECORDED 07/28/19 13 1:45AM BY ALLA BAUM MA, MARY CARMEN ON/ADDEN DUM Susan De Oliveira PA-C [address], [place], [address], [facility] 6 15:45:51 Bronchit is [id number] Completed 201202/09/2014 RECORDED 07/28/19 13 1:45AM BY ALLA BAUM MA, ISAIAHATI ON/ADDEN DUM Susan De Oliveira PA-C [address], [place], [address], [facility] 6 15:45:51 Follow-u p encounte r Completed 201201/16/2014 RECORDED 08/31/19 13 1:39PM BY RHONDA PETERSEN MA, ISAIAHATI ON/ADDEN DUM Susan De Oliveira PA-C [address], [place], [address], [facility] 6 15:45:51 Disorder of rotator cuff Completed 201201/16/2014 IMPRESSI ON: SUSPECT SUPRASPI NATUS TENDON TEAR. 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 FURTHER F/U THROUGH [facility]. SHE WILL TAKE NSAID PRN AND ICE. MAY RETURN TO WORK.; RECORDED 08/31/19 13 1:39PM BY RHONDA PETERSEN MA, MARY CARMEN ON/ADDEN DUM Susan De Oliveira PA-C [address] [facility] [address], [place], [address], [facility] 6 15:45:51 Follow-u p encounte r Completed 201202/08/2014 RECORDED 08/31/19 13 1:39PM BY RHONDA PETERSEN MA, MARY CARMEN ON/ADDEN DUM Susan De Oliveira PA-C [address] [facility] [address], [place], [address], [facility] 6 15:45:51 Disorder of rotator cuff Completed 201202/08/2014 IMPRESSI ON: SUSPECT SUPRASPI NATUS TENDON TEAR. 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 FURTHER F/U THROUGH [facility]. SHE WILL TAKE NSAID PRN AND ICE. MAY RETURN TO WORK.; RECORDED 08/31/19 13 1:39PM BY RHONDA PETERSEN MA, MARY CARMEN ON/LUIS LICONA-C [address] [facility] [address], [place], [address], [facility] 6 15:45:51 Follow-u p encounte r Completed 201202/09/2014 RECORDED 08/31/19 13 1:39PM BY RHONDA PETERSEN MA, MARY CARMEN ON/ADDMOHAN LICONA-C [address] [facility] [address], [place], [address], [facility] 6 15:45:51 Disorder of rotator cuff Completed 201202/09/2014 IMPRESSI ON: SUSPECT SUPRASPI NATUS TENDON TEAR. 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 FURTHER F/U THROUGH [facility]. SHE WILL TAKE NSAID PRN AND ICE. MAY RETURN TO WORK.; RECORDED 08/31/19 13 1:39PM BY RHONDA PETERSEN MA, MARY CARMEN ON/LUIS De Oliveira PA-C [address] [facility] [address], [place], [address], [facility] 6 15:45:51 Adult health examinat ion Completed 201303/18/2016 Diana martines MA null, [facility] 6 09:23:31 Anxiety state [id number] Completed 201312/30/2016 Peyman Healy MD [address] [facility] [address], [place], [address], [facility] 7 10:23:44 Backache [id number] Completed 201301/16/2014 IMPRESSI ON: > 1 WEEK OF WORSENIN G BACK PAIN, UNABLE TO STAND UPRIGHT, LEGS GIVING OUT. PAIN NOW RADIATIN G INTO BUTTOCKS AND ANTERIOR THIGHS. MRI REVEALED SCHMORL' S NODES, OTHERWIS E NEG. TO PSS FOR FURTHER EVAL.; RECORDED 10/05/19 14 2:28PM BY DIANA NUNEZ MA, MARY CARMEN ON/LUIS De Oliveira PA-C [address], [place], [address], [facility] 6 15:45:51 Acute bronchit is [id number] Completed 201301/16/2014 IMPRESSI ON: LIKELY MOSTLY VIRAL SXS, HOWEVER DUE TO SMOKING STATUS AND RISK OF BACTERIA L BRONCHIT IS OR PNA TO TX WITH ABX. REST, FLUIDS, COUGH MED AT NIGHT PRN. CALL FOR WORSENIN G/PRN.; RECORDED 10/05/19 14 2:26PM BY DIANA NUNEZ MA, ANNOTATI ON/ADDEN DUM Susan [facility]-C [address], [place], [address], [facility] 6 15:45:51 Cough [id number] Completed 201301/16/2014 IMPRESSI ON: POSSIBLE PNEUMONI A WITH THE FOCAL RALES. IF SHE DOES NOT IMPROVE WITH THE ABX SHE WILL GET A CXR.; RECORDED 10/05/19 14 2:26PM BY DIANA NUNEZ MA, ANNOTATI ON/ADD DUM BRODY Roberts [address] [facility] [address], [place], [address], [facility] 4 11:48:33 Tobacco dependen ce syndrome [id number] Active 2013 GABRIELA Coburn, [facility] 6 09:24:07 Tobacco dependen ce syndrome 60156652 Completed 201301/16/2014 RECORDED 10/05/19 14 2:27PM BY DIANA NUNEZ MA, ANNOTATI ON/ADD DUM GABRIELA Coburn, [facility] 6 09:24:07 Diarrhea [id number] Completed 201301/16/2014 RECORDED 10/05/19 14 2:25PM BY DIANA NUNEZ MA, ANNOTATI ON/LUIS DUM Susan De Oliveira [facility] [address] [facility] [address], [place], [address], [facility] 6 15:45:51 Dysuria [id number] Completed 201312/30/2016 RECORDED 10/05/19 14 2:30PM BY DIANA NUNEZ MA, OFFICE VISIT Peyman Healy MD [address] [facility] [address], [place], [address], [facility] 7 10:24:17 Elevated blood-pr essure reading without diagnosi s of hyperten margaret 472318930 Active 2013 GABRIELA Coburn, [facility] 7 11:51:58 Gastroes ophageal reflux disease 778484977 Active 2013 GABRIELA Coburn, [facility] 6 09:23:24 Headache 20954483 Completed 201301/16/2014 RECORDED 10/05/19 14 2:28PM BY DIANA NUNEZ MA, ANNOTCHARLENE ON/ADDEN DUM Susan De Oliveira [facility] [address] [facility] [address], [place], [address], [facility] 6 15:45:51 Hyperlip idemia 61621332 Completed 201312/30/2016 BRODY Roberts [address] [facility] [address], [place], [address], [facility] 2 14:05:28 Acute lymphade nitis 25783403 Completed 201301/16/2014 IMPRESSI ON: PT VERY ANXIOUS [...] MARY CARMEN ON/ADDEN DUM Susan De Oliveira [facility] [address] [facility] [address], [place], [address], [facility] 6 15:45:51 Psoriasi s 7256492 Active 2013 GABRIELA Coburn, [facility] 6 09:24:04 Disorder of bursa of shoulder region 89152549 Active 2013 GABRIELA Coburn, [facility] 6 09:24:00 Temporom andibula r joint disorder 16406179 Active 2013 GABRIELA Coburn, [facility] 7 11:51:54 Candidal vulvovag initis 20547860 Completed 201301/16/2014 IMPRESSI ON: TENDS TO GET YEAST INFECTIO NS WITH ABX; RECORDED 10/05/19 14 2:26PM BY DIANA NUNEZ MA, ANNOTATI ON/ADDEN DUM Susanyimi De Oliveira [facility] [address] [facility] [address], [place], [address], [facility] 6 15:45:51 Backache [id number] Completed 201302/08/2014 IMPRESSI ON: > 1 WEEK OF WORSENIN G BACK PAIN, UNABLE TO STAND UPRIGHT, LEGS GIVING OUT. PAIN NOW RADIATIN G INTO BUTTOCKS AND ANTERIOR THIGHS. MRI REVEALED SCHMORL' S NODES, OTHERWIS E NEG. TO PSS FOR FURTHER EVAL.; RECORDED 10/05/19 14 2:28PM BY DIANA NUNEZ MA, MARY CARMEN ON/ADDEN DUM [facility]imi [facility] [address] [facility] [address], [place], [address], [facility] 6 15:45:51 Acute bronchit is [id number] Completed 201302/08/2014 IMPRESSI ON: LIKELY MOSTLY VIRAL SXS, HOWEVER DUE TO SMOKING STATUS AND RISK OF BACTERIA L BRONCHIT IS OR PNA TO TX WITH ABX. REST, FLUIDS, COUGH MED AT NIGHT PRN. CALL FOR WORSENIN G/PRN.; RECORDED 10/05/19 14 2:26PM BY DIANA NUNEZ MA, MARY CARMEN ON/ADDEN GEORGE RHODESC [address], [place], [address], [facility] 6 15:45:51 Cough [id number] Completed 201302/08/2014 IMPRESSI ON: PRODUCTI VE COUGH X 10D, + TOBACCO, WILL TX, ADVISE TO STOP SMOKING, RTC IF PERSISTE NT OR WORSENIN G SYMPTOMS .; RECORDED 10/05/19 14 2:26PM BY DIANA NUNEZ MA, MARY CARMEN ON/ADDEN BRODY Ferro [address], [place], [address], [facility] 4 11:48:33 Diarrhea [id number] Completed 201302/08/2014 RECORDED 10/05/19 14 2:25PM BY DIANA NUNEZ MA, ANNOTATI ON/LUIS De Oliveira PA-C [address], [place], [address], [facility] 6 15:45:51 Headache [id number] Completed 201302/08/2014 RECORDED 10/05/19 14 2:28PM BY DIANA NUNEZ MA, MARY CARMEN ON/LUIS De Oliveira PA-C [address], [place], [address], [facility] 6 15:45:51 Acute lymphade nitis 59716902 Completed 201302/08/2014 IMPRESSI ON: PT VERY ANXIOUS [...] MARY CARMEN ON/ADDEN GEORGE LICONA-C [address], [place], [address], [facility] 6 15:45:51 Candidal vulvovag initis 68962092 Completed 201302/08/2014 IMPRESSI ON: TENDS TO GET YEAST INFECTIO NS WITH ABX; RECORDED 10/05/19 14 2:26PM BY DIANA NUNEZ MA, MARY CARMEN ON/ADDEN DUM Susan LICONA-C [address], [place], [address], [facility] 6 15:45:51 Backache [id number] Completed 201302/09/2014 IMPRESSI ON: > 1 WEEK OF WORSENIN G BACK PAIN, UNABLE TO STAND UPRIGHT, LEGS GIVING OUT. PAIN NOW RADIATIN G INTO BUTTOCKS AND ANTERIOR THIGHS. MRI REVEALED SCHMORL' S NODES, OTHERWIS E NEG. TO PSS FOR FURTHER EVAL.; RECORDED 10/05/19 14 2:28PM BY DIANA NUNEZ MA, MARY CARMEN ON/LUIS LICONA-C [address], [place], [address], [facility] 6 15:45:51 Acute bronchit is [id number] Completed 201302/09/2014 IMPRESSI ON: LIKELY MOSTLY VIRAL SXS, HOWEVER DUE TO SMOKING STATUS AND RISK OF BACTERIA L BRONCHIT IS OR PNA TO TX WITH ABX. REST, FLUIDS, COUGH MED AT NIGHT PRN. CALL FOR WORSENIN G/PRN.; RECORDED 10/05/19 14 2:26PM BY DIANA NUNEZ MA, MARY CARMEN ON/ADDMOHAN LICONA-C [address] [facility] [address], [place], [address], [facility] 6 15:45:51 Cough [id number] Completed 201302/09/2014 IMPRESSI ON: PRODUCTI VE COUGH X 10D, + TOBACCO, WILL TX, ADVISE TO STOP SMOKING, RTC IF PERSISTE NT OR WORSENIN G SYMPTOMS .; RECORDED 10/05/19 14 2:26PM BY DIANA NUNEZ MA, MARY CARMEN ON/ADDEN DUM BRODY Roberts [address] [facility] [address], [place], [address], [facility] 4 11:48:33 Diarrhea [id number] Completed 201302/09/2014 RECORDED 10/05/19 14 2:25PM BY DIANA NUNEZ MA, MARY CARMEN ON/LUIS LICONA-C [address] [facility] [address], [place], [address], [facility] 6 15:45:51 Headache 56302557 Completed 201302/09/2014 RECORDED 10/05/19 14 2:28PM BY DIANA NUNEZ MA, MARY CARMEN ON/ADDEN DUM Susan LICONA-C [address] [facility] [address], [place], [address], [facility] 6 15:45:51 Acute lymphade nitis 93044698 Completed 201302/09/2014 IMPRESSI ON: PT VERY ANXIOUS [...] 14 2:26PM BY DIANA NUNEZ MA, ANNOTATI ON/ADDMOHAN De Oliveira PA-C [address], [place], [address], [facility] 6 15:45:51 Candidal vulvovag initis 45332904 Completed 201302/09/2014 IMPRESSI ON: TENDS TO GET YEAST INFECTIO NS WITH ABX; RECORDED 10/05/19 14 2:26PM BY DIANA NUNEZ MA, ANNOTATI ON/ADDMOHAN De Oliveira PA-C [address], [place], [address], [facility] 6 15:45:51 Glucose level outside referenc e range 624021202 Completed 201312/30/2016 Peyman Healy MD [address], [place], [address], [facility] 7 10:23:38 Anemia of pregnanc y 08713484 Completed 201512/30/2016 Peyman Healy MD [address], [place], [address], [facility] 7 10:23:35 Generali zed anxiety disorder 36402107 Active 2016 Diana martines [place] null, [facility] 7 11:53:56 Primary biliary cholangi tis 35347462 Active 2019 BRODY Roberts [address], [place], [address], 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 no other organs. nephrect sandoval 09/2019 Removal Reason: radical nephrect sandoval 09/2019 Lynda ortega [facility] 3 15:23:27 Neoplasm of left kidney [id number] 292009 Completed 202004/27/2023 Removal Reason: radical nephrect sandoval 09/2019 Lynda ortega [facility] 3 15:23:00 Low back pain 665896588 Active 2021 RECORDED 05/13/20 12 3:41PM BY ALLA BAUM MA, ANNOTATI ON/LUIS Sanchez, [facility] [address] [facility] [address], [place], [address], [facility] 2 10:36:13 Plantar fasciiti s of right foot 38567695298 569653 Active 2021 Noah Sanchez, [facility] [address] [facility] [address], [place], [address], [facility] 2 13:53:56 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 97255320936 949627 Active 2021 Noah Sanchez, [facility] [address] [facility] [address], [place], [address], [facility] 2 13:54:13 Hyperlip idemia 66867732 Active 2021 Noah Sanchez, [facility] [address] [facility] [address], [place], [address], [facility] 2 14:05:27 Fatigue 08385525 Active 2021 Noah Sanchez [facility] [address] [facility] [address], [place], [address], [facility] 2 14:05:52 Impaired fasting glycemia 199005432 Active 2021 Noah Sanchez, [facility] [address] [facility] [address], [place], [address], [facility] 2 14:05:59 Pain of left hip joint 18463690071 9100 Active 2021 Noah Sanchez, [facility] [address] [facility] [address], [place], [address], [facility] 2 11:29:28 [facility] 224392111 [facility] 15:21:38 Cough 79397257 Active 2023 IMPRESSI ON: PRODUCTI VE COUGH X 10D, + TOBACCO, WILL TX, ADVISE TO STOP SMOKING, RTC IF PERSISTE NT OR WORSENIN G SYMPTOMS .; RECORDED 10/05/19 14 2:26PM BY DIANA NUNEZ MA, ANNOTATI ON/ADDEN DUM Noah Sanchez, [facility] [address] [facility] [address], [place], [address], [facility] 4 11:48:33 COVID-19 902156697 Active 2023 Noah Sanchez, [facility] [address] [facility] [address], [place], [address], [facility] 4 12:11:32 Fever 015644128 Active 2023 Noah Sanchez, [facility] [address] [facility] [address], [place], [address], [facility] 4 12:11:36 Vitamin D deficien cy 91751771 Active 2023 Noah Sanchez, [facility] [address] [facility] [address], [place], [address], [facility] 4 15:27:42 Acute right otitis media 788165235 Active 2024 BRODY Roberts [address], [place], [address], [facility] 11:21:54 Problem Notes None recorded. Procedures Surgical History Date Name Laterality Status Provider Name and Address Organization Details Recorded Time 09/07/19 25 Most Recent Mammogram completed Emili Martinez [facility] 09/12/2024 12:55:45 07/14/19 23 Mammogram Screening completed Danielle Rodriguez [facility] 07/14/2022 16:24:36 05/05/20 22 fasciotomy of foot completed BRODY Roberts [address] [facility] [address], [place], [address], [facility] 04/27/2023 09:18:39 09/07/19 20 radical nephrectomy completed Greta Glasgow [facility] 09/11/2019 15:28:04 09/07/19 20 Cancer Surgery completed Sherlyn Brown MA [facility] 03/27/2021 08:40:34 07/14/19 17 Date of Last Colonoscopy completed Diana slaughter MA [facility] 12/30/2016 10:13:20 07/14/19 17 Colonoscopy completed BRODY Roberts [address] [facility] [address], [place], [address], [facility] 02/14/2019 15:53:00 02/11/20 07 delivery completed Diana slaughter MA [facility] 02/14/2019 15:32:01 01/14/20 04 Caesarean Section completed Diana slaughter MA [facility] 02/14/2019 15:31:51 09/03/19 00 Tonsillectomy completed Sherlyn Brown MA [facility] 03/27/2021 08:40:34 Tubal Ligation completed Diana slaughter MA [facility] 11/21/2014 14:01:10 Tonsillectomy completed Sherlyn Brown MA [facility] 03/27/2021 08:40:34 Imaging Results None recorded. Procedure Notes None recorded. Medical Equipment None Reported. Allergies Allergen ID Allergen Name Allergen Category Reaction Reaction Severity Criticality Documentation Date Start Date Code Code System Note Provider Name and Address Organization Details Recorded Time amoxicill in medicatio n other Not available Not available 10/18/2014 723 RxNorm cause s yeast infec tion in the [facility] 5 12:49:17 2838 Keflex medicatio n itching Not available Not available 01/16/20142013 75097 7 RxNorm GABRIELA Coburn, [facility] 5 12:49:17 2839 Product containin g penicilli n (product) medicatio n Not available Not available Not available 01/16/20142013 65277 8001 SNOMED REACT ION: AMOX, CAUSE S YEAST INFEC TIONS ; COMME NT: RECOR DED 10/04 2:30P M BY SRINIVAS HUERTA MA, OFFIC E VISIT ; Peyman Healy MD [address], [place], [address], [facility] 5 16:56:28 06333 Non-stero idal anti-infl ammatory agent (substanc e) medicatio n other moderate low 04/21/2022 64833 5008 SNOMED 1 BRODY Schrader [address] [facility] [address], [place], [address], [facility] 2 13:55:13 Medications Name Sig Start Date [...] oral route as directed for 10 days. 11/28 completed Not Available Not Available Not Available [...] N; Not Available Not Available Not Available clindamyc in 1 % topical gel APPLY A THIN LAYER ONCE DAILY AFTER BPO TO THE AXILL[facility]. 11/28 completed Not Available Not Available Not Available [...] t Available sertralin e 25 mg tablet TAKE 1 TABLET BY MOUTH EVERY DAY DIRECTED 2024 active Not Available Not Available Not Avai lable hydroxyzi ne HCl 25 mg tablet TAKE [...] 1 TABLET BY MOUTH EVERY DAY DIRECTED 03/16 completed Not Available Not Available Not Available metronida zole 0.75 % topical gel [...] Not Available Not Available No t Available cholecalc iferol (vitamin D3) 1,250 mcg (50,000 unit) capsule TAKE 1 CAPSULE BY MOUTH EVERY WEEK FOR 84 DAYS 2024 active Not Available Not Available Not Avai lable Probiotic 1 tab daily orally 04/19 completed [...] Not Available Not Available Vitals Date Recorded Systolic And Diastolic Provider Name and Address Organization Details Last Updated DateTime 07/06/2024 110/60 mm[Hg] BRODY Roberts [address] [address], [place], [address], [facility] 07/06/2024 11:27:04 Date Recorded Body height Body mass index (BMI) Body weight Heart rate Oxygen saturation Oxygen saturation in Arterial blood by Pulse oximetry Body temperature Systolic And Diastolic Provider Name and Address Organization Details Last Updated DateTime 5 158.75 cm 33.7 kg/m2 85765.7 7 g 62 /min 98 % 98 % 99.1 [degF] 158/92 mm[Hg] Maru Sewell MA [facility] 5 10:49:03 Date Recorded Body height Body mass index (BMI) Body weight Body temperature Oxygen saturation Oxygen saturation in Arterial blood by Pulse oximetry Heart rate Systolic And Diastolic Provider Name and Address Organization Details Last Updated DateTime 4 158.75 cm 34.6 kg/m2 18285.7 4 g 98.4 [degF] 98 % 98 % 85 /min 127/85 mm[Hg] Sydnie Flores MA [facility] 4 11:28:21 Date Recorded Body height Body mass index (BMI) Body weight Heart rate Oxygen saturation Oxygen saturation in Arterial blood by Pulse oximetry Body temperature Systolic And Diastolic Provider Name and Address Organization Details Last Updated DateTime 5 158.75 cm 35.3 kg/m2 84972.1 g 75 /min 99 % 99 % 98.7 [degF] 157/85 mm[Hg] Maru Sewell MA [facility] 5 09:35:02 Date Recorded Systolic And Diastolic Provider Name and Address Organization Details Last Updated DateTime 04/27/2023 136/80 mm[Hg] Noah Sanchez [facility] [address] [address], [place], [address], [facility] 04/27/2023 09:27:54 Date Recorded Body height Body mass index (BMI) Body weight Heart rate Oxygen saturation Oxygen saturation in Arterial blood by Pulse oximetry Body temperature Systolic And Diastolic Provider Name and Address Organization Details Last Updated DateTime 3 158.75 cm 34 kg/m2 79771.9 6 g 74 /min 98 % 98 % 98.5 [degF] 152/91 mm[Hg] Maru Sewell MA [facility] 3 08:55:13 Date Recorded Systolic And Diastolic Provider Name and Address Organization Details Last Updated DateTime 05/02/2024 120/66 mm[Hg] BRODY Roberts [address] [facility] [address], [place], [address], [facility] 05/02/2024 16:01:22 Date Recorded Body height Body mass index (BMI) Body weight Heart rate Oxygen saturation Oxygen saturation in Arterial blood by Pulse oximetry Body temperature Systolic And Diastolic Provider Name and Address Organization Details Last Updated DateTime 4 158.75 cm 34 kg/m2 17240.9 6 g 72 /min 99 % 99 % 98.2 [degF] 147/79 mm[Hg] Maru Sewell MA [facility] 4 15:21:08 Social History Question Answer Notes LastModified by Organizat ion Details LastModified Time Tobacco Smoking Status Former Smoker pt quit 09/2019 Sherlyn Brown MA null, [facility] 03/26/2020 10:39:09 Do You Have An Advance Directive? Yes Signed On 11/21/2014 Information not available 04/23/2022 Is Blood Transfusion Acceptable In An Emergency? Yes Information not available 06/05/2015 What Is Your Level Of Caffeine Consumption? Moderate 2 Servings Of Coffee Daily, Occasional Soda Information not available 04/27/2023 How Much Tobacco Do You Chew? None Information not available 06/05/2015 What Type Of Diet Are You Following? REGULAR Information not available 11/21/2014 Which Illicit Or Recreational Drugs Have You Used? None Information not available 04/24/2015 When Did You Quit Smoking? 1-5yearssin celastcicora leigh [email or web address] Information not available 03/27/2021 Live Alone Or [...] Or Greater Than 100 Degrees Fahrenheit? No [email or web address] Information not available 03/26/2020 Are You Or Anyone In Your Household A Health Care Provider Or Emergency Responder? Yes [email or web address] Information not available 03/26/2020 To The Best Of Your Knowledge Have You Been In Close Proximity To Any Individual Who Tested Positive For COVID-19? No [email or web address] Information not available 03/26/2020 Have You Recently Traveled To A COVID-19 High Risk Area Or Gathering In The Last 10 Days? No [email or web address] Information not available 07/23/2020 What Was The Date Of Your Most Recent Tobacco Screening? 05/02/2024 [email or web address] Information not available 05/02/2024 How Many Children Do You Have? 2 Gabriel And Jsa Information not available 12/30/2016 Do You Use Your Seat Belt Or Car Seat Routinely? Yes [email or web address] Information not available 03/27/2021 Seat Belts Used [...] To Smoke? No Information not available 06/05/2015 How Much Tobacco Do You Smoke? No [email or web address] Information not available 03/26/2020 Do You Use Sunscreen Routinely? Yes Information not available 06/05/2015 How Many Years Have You Smoked Tobacco? 29 Information not available 02/14/2019 Sex: Unknown Functional Status Question Answer Note LastModified by Organizat ion Details LastModified Time Do you or have you ever used any other forms of tobacco or nicotine? No Information not available 04/23/2022 What is your level of alcohol consumption? Occasional Information not available 04/23/2022 Do you or have you ever used smokeless tobacco? Never used smokeless tobacco Information not available 02/14/2019 Are you currently employed? No full-time Information not available 04/23/2022 Are you able to walk independently without assistance or assistive devices? [email or web address] Information not available 04/23/2022 Are you able to care for yourself independently? Yes Information not available 11/21/2014 What is your occupation? Other [employer] Information not available 01/06/2025 Do you or have you ever used e-cigarettes or vape? Never used electronic cigarettes Information not available 04/23/2022 What is your exercise level? Moderate 2 fitness classes per week and gym regularly. Information not available 05/02/2024 Mental Status None recorded. Family History Relationship Description Onset Age of this Age Resolved Age Notes LastModified by Organization Details LastModified Time Father Diabetes mellitus [email or web address] Not available 13:56:24 Father Heart disease [email or web address] Not available 13:56:24 Father Essential hypertension Not available 10:40:59 Father Malignant neoplasm of lung [email or web address] Not available 03/27 08:40:16 Father Kidney disease Not available 03/27 08:40:16 Mother Malignant neoplasm of uterus molar pregna ncy- hyster ectomy Not available 04/23/2022 10:40:59 Mother Opioid dependence Not available 04/23 10:40:59 Mother Substance abuse Not available 03/27 08:40:16 Mother Seizure disorder [email or web address] Not available 03/27 08:40:16 Mother Osteoporosis [email or web address] Not vasile ilable 03/27/2021 08:40:16 Mother Disorder of thyroid gland Not available 2021 10:40:59 Brother Essential hypertension 45 possib ly Not available 04/23/2022 10:40:59 Brother Harmful pattern of use of alcohol [email or web address] Not available 2017 15:39:14 Brother Depressive disorder [email or web address] Not available 03/27 08:40:16 Maternal Grandfather Opioid dependence Not available 04/23 10:40:59 Unspecified Relation Substance abuse [email or web address] Not available 03/27 08:40:16 Son Allergy Not available 1 10:40:59 Medical History Condition Response Coronary Artery Disease N Other N Gout N Kidney Stones N Blood Diseases N Hyperthyroidism N Breast Cancer N mrsa exposure N COPD N Depression N Lung Disease N Hypothyroidism N Defects or Inherited Disease [...] Eczema N Diverticulitis N Abuse/Domestic Violence N Allergies Y Asthma N Reflux/GERD N Hepatitis N Heart Disease N Pulmonary Embolism N Hypertension N Osteoporosis N Chicken Pox N Autism Spectrum Disorder (ASD) N Gynecological History Statement/Question Response Flow Heavy [...] split virus, trivalent, preservative 6 [facility] 12[facility]2016 10:11:22 Influenza, split virus, quadrivalent, preservative 8 completed [facility] 09/02/2018 10:03:42 Influenza, split virus, quadrivalent, preservative 9 completed [facility] 06/14/2019 09:27:56 COVID-19, mRNA, LNP-S, PF, 100 mcg/0.5mL dose or 50 mcg/0.25mL dose 0 completed [facility] 09/12/2021 10:18:38 Influenza, split virus, quadrivalent, PF 1 completed [facility] 09/12/2021 10:18:38 COVID-19, mRNA, LNP-S, PF, 100 mcg/0.5mL dose or 50 mcg/0.25mL dose 1 completed [facility] 09/12/2021 10:18:38 Influenza, split virus, quadrivalent, PF 7 completed GABRIELA Herbert [facility] 09/12/2021 10:18:39 Influenza, split virus, trivalent, preservative 5 [facility] 12/24/2021 10:23:35 Influenza, split virus, quadrivalent, PF 3 [facility] 07/13/2023 11:16:35 Influenza, split virus, trivalent, PF 4 completed Not Available [facility] 11/28/2024 09:30:33 Tdap 1 completed Not Available [facility] 01/16/2014 13:38:10 Influenza, split virus, quadrivalent, PF 0 completed GABRIELA Waller, [facility] 03/26/2020 10:48:58 Tdap 1 completed GABRIELA Carrizales, [facility] 03/27/2021 10:06:49 Influenza, split virus, quadrivalent, PF 2 completed Noah Sanchez [facility] [address], [address], [facility] 04/23/2022 11:29:33 Past Encounters Encounter ID Performer Location Encounter Start Date Encounter Closed Date Diagnosis/Indication Diagnosis SNOMED-CT Code Diagnosis ICD10 Code Diagnosis IMO Codes Diagnosis Note [id number] 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 [id number] [facility],[address] [place] [address] 05/07/2009 00:00:00 [id number] 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 [address] [facility],[address] [place] [address] 04/03/2010 00:00:00 [id number] 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 [address] [facility],[address] [place] [address] 04/30/2010 00:00:00 [id number] 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 [address] [facility],[address] [place] [address] 08/22/2010 00:00:00 [id number] 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 [address] [facility],[address] [place] [address] 09/19/2010 00:00:00 [id number] 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 [address] [facility],[address] [place] [address] 11/17/2010 00:00:00 [id number] 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 [address] [facility],[address] [place] [address] 06/02/2011 00:00:00 [id number] 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 [address] [facility],[address] [place] [address] 09/15/2011 00:00: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 [place] [address] 10/29/2011 00:00:00 [id number] 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 [place] [address] 11/11/2011 00:00:00 [id number] 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 [address] [facility] [address] [place] [address] 05/13/2012 00:00:00 [id number] 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 [address] [place] [address] 08/31/2012 00:00:00 [id number] 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 [address] [facility] [address] [place] [address] 02/07/2013 00:00:00 [id number] 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 [address] [facility],[address] [place] [address] 04/12/2013 00:00:00 [id number] 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 [address] [facility],[address] [place] [address] 08/30/2013 00:00:00 [id number] 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 [address] [facility],[address] [place] [address] 10/04/2013 00:00:00 [id number] Peyman Healy MD Main Office [address] [facility] [address] [place] [address] 03/27/2014 09:46:56 03/27/2014 10:49:27 Wheezing symptom 623876414 Tobacco de pendence syndrome 92668165 [id number] Peyman Healy MD Main Office [address] [place], [place] [address] 09/14/2014 14:46:39 09/14/2014 15:17:09 Acute sinusitis 42701172 Tobacco de pendence syndrome 57516677 [id number] Peyman Healy MD Main Office [address] [facility] [address] [place] [address] 10/18/2014 12:40:42 10/18/2014 13:27:05 Acute asthma 546222490 Acute zhao rgic reaction 352280254 Tobacco de pendence syndrome 52749082 [id number] Peyman Healy MD Main Office [address] [address] [place] [address] 11/21/2014 13:28:44 11/21/2014 14:47:30 Adult health examination 533112929 Hyperlipidemia 75204014 Fatigue 67338061 Tobacco de pendence syndrome 92864266 Irritable bowel syndrome 58358192 Screening for malignant neoplasm of breast 229985385 Screening for malignant neoplasm of cervix 746342109 Body mass index 25-29 - overweight 967924276 [id number] Livan Fatima MD Main Office [address] [address] [place] [address] 12/29/2014 09:25:24 12/29/2014 09:50:58 Acute pharyngitis 866106859 probable viral infection; no role for abx. Continue with symptomati c treatment. [id number] Peyman Healy MD Main Office [address] [place], [place] [address] [address] 04/24/2015 13:09:18 04/24/2015 15:20:58 Acute sinusitis 77689928 J01.90 Anxiety state 577920607 F41.1 [id number] Peyman Healy MD Main Office [address] [place] [address] [place] [address] 06/05/2015 14:02:13 06/05/2015 15:35:44 Anxiety state 369226621 F41.1 Pain in calf 492790276 M 79.669 [id number] Susan De Oliveira PA-C Main Office [address] [place] [address] 07/23/2015 10:47:52 07/23/2015 12:10:04 Lumbar sprain 203543301 S33.9XXA L. lumbar sparin acute. Can not tolerate NSAIDs. Will start Prednisone taper , Flexeril at night only and Tramadil for pain. Moist heat applicatio ns, gently back stretches. Stay back from work for few days. Sprain pel elana ligament 966268629 S33.9XXA [id number] Peyman Healy MD Main Office [address] [place] [address] 12/25/2015 13:17:42 12/25/2015 14:58:37 Anxiety state 944282776 F41.1 Tobacco de pendence syndrome 74202054 F17.290 Reviewed motivation s for smoking cessation. Advised about benefits of stopping smoking. Hyperlipidemia 80507456 E78.5 Adult heal th examination 788674741 Z00.00 Fatigue 25064355 R53.83 Body mass index 25-29 - overweight 247331929 Z68.29 Inflammati on of sacroiliac joint 30608134 M46.1 [id number] Peyman Healy MD Main Office [address] [address] [place] [address] 03/18/2016 09:15:07 03/18/2016 10:32:41 Irritable bowel syndrome 22491890 K58.9 Diarrhea 96919045 R19.7 Knee pain 81665296 M25.5 61 Medial joint line tenderness with positive Malathi test. Rule out meniscus injury [id number] Susan De Oliveira PA-C Main Office [address] [address] [place] [address] 08/07/2016 10:37:00 08/07/2016 11:16:42 Upper respiratory infection 69497930 J06.9 PT. will use Mucinex DM or D BID for congestion and cough , nasal saline solution BID and FLonase she has at home qd. Rest and fluids. PT. will call office next week if worsening of symptoms , fever, colored secretions or facial pain. [id number] Peyman Healy MD Main Office [address] [address] [place] [address] 12/30/2016 10:04:42 12/30/2016 11:06:58 Adult health examination 006823134 Z00.00 Tobacco de pendence syndrome 15073738 F17.290 Reviewed motivation s for smoking cessation. Advised about benefits of stopping smoking. Elevated blood-pressure reading without diagnosis of hypertension 715053910 R03.0 Had elevated BP under propafol for colonoscop y Anxiety state 345352501 F41.1 STable on medication Hyperlipidemia 06654005 E78.5 Fatigue 05923732 R53.83 Hyperhidrosis 979781519 R61 Nasal vestibulitis 24218 000 J34.89 Body mass index 25-29 - overweight 791143562 E66.3 Z68.25 [id number] Allan De Oliveira PA-C Main Office [address] [facility] [address] [place] [address] 09/15/2017 13:21:04 09/15/2017 14:12:54 Acute sinusitis 39610906 J01.90 pt requested diflucan - rec add probiotic supp qd soniya for her IBS c/o - hopefully not require levsin as much. also advised pt could use bactroban in nares to help nasal lining sxs as well for a few days [id number] Peyman Healy MD Main Office [address] [address] [place] [address] 02/11/2018 15:00:11 02/11/2018 16:22:57 Adult health examination 678574116 Z00.00 Tobacco de pendence syndrome 67889812 F17.290 Reviewed motivation s for smoking cessation. Advised about benefits of stopping smoking. Generalize d anxiety disorder 34121644 F41.1 Irritable bowel syndrome 00381052 K58.9 Body mass index 25-29 - overweight 783933573 E66.3 Z68.25 Hyperlipidemia 95903242 E78.5 Fatigue 77986175 R53.83 Greater tr ochanteric pain syndrome 3717528 M70.62 Neck pain 07807021 M54.2 Inflammati on of sacroiliac joint 84685991 M46.1 [id number] Allan De Oliveira PA-C Main Office [address] [facility] [address] [place] [address] 04/19/2018 10:32:33 04/19/2018 12:00:32 Needs influenza immunization 427688340 Z23 had flu shot last week -- flu shot NOT given today Cough 84071321 R05 suspect early pna - will check cxr and give abx proactivel y Infective pneumonia 3123 83869 J18.9 rec probiotics while on abx, also rec proair and peace -- see below [id number] Sim Garcia MD Main Office [address] [facility] [address] [place] [address] 09/02/2018 09:42:20 09/02/2018 10:35:38 Acute pharyngitis 911179564 J02.9 Based on risk score and recent exposure will cover for strep. D/C if culture is negative. Supportive /symptomat ic tx advised in meantime. Call inb/worse or if new symptoms develop. [id number] Livan Fatima MD Main Office [address] [address] [place] [address] 02/14/2019 15:20:06 02/14/2019 16:13:10 Adult health examination 307690151 Z00.00 UTD, will check blood work. Tobacco de pendence syndrome 64215027 F17.290 Reviewed present motivation s for smoking cessation. Patient reports that being ready to attempt smoking cessation. Discussed options for support. 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 Call if sx persist, regular TC sent out Eustachian tube disorder 23076360 H69.93 gargles, hydration try flonase once a day, call if ear pain persists; no evidence of otitis media today. [id number] Livan Fatima MD Main Office [address] [place] [address] 03/26/2020 10:23:16 03/26/2020 11:21:36 Adult health examination 547535580 Z00.00 UTD, will check blood work. Needs infl uenza immunization 237136139 Z23 Elevated blood-pressure reading without diagnosis of hypertension 382839340 R03.0 Irritable bowel syndrome 02678910 K58.9 Body mass index 25-29 - overweight 066073118 Z68.28 E66.3 Screening for cardiovascular system disease 181013635 Z13.6 Major depr ession single episode, in partial remission 88952309 F32.4 [id number] Barbara dumont MD Main Office [address] [address] [place] [address] 05/27/2020 10:30:41 05/27/2020 11:38:57 Strain of muscle of right shoulder 4894469821 6020199 S46.911A check xray of shoulder, rest, no sling, keep gentle ROM if xray negative, can use OTC pain reliever, Start PT belen. If worsening to call. Out of work for 1 week, if needs more time will call Use ice x 24-48 hours, then ice/heat. Inflammati on of sacroiliac joint 14672448 M46.1 Rest, stretching , change position frequently , will call if any worsening sx. [id number] Livan Fatima MD Main Office [address] [address] [place] [address] 07/23/2020 14:49:33 07/23/2020 15:25:15 Otalgia 12137138 H92.02 Left ear pain but it hurts if she swallows, turns her head, yawns ect. suspect related to lymph node. Cervical lymphadenopathy 557906799 R59.0 left anterior cervical node tenderness , swelling. causes ear pain. Exposure t o viral disease [id number] 13891 Z03.818 had temp 99.5 today. has had chills/ feeling hot and cold, very fatigued. she did have moderna covid vaccine 07/03 and had side effects to that which have resolved. 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 [address] [place] [address] 09/27/2020 12:55:59 09/27/2020 13:27:31 Pain of right ankle joint [id number] 2319244 M25.571 Pain in the medial malleus on exam, the area was swollen.Ad vised rest, ice elevation and compressio n with ADRIEL.She meets [place] criteria of Xray, will get Xray.Advis ed to avoid overuse.Monae forte cannot tolerate NSAID and takes tylenol conservati [...] as well, Patient is establishe d with [facility] and I advised her to call. Plantar fa sciitis of left foot [id number] 0689635 M72.2 Patient has tried exercises and Boot at night with no improvemen t.Will refer to podiatry to consider injections . Patient is establishe d with [facility] and I advised her to call for apt. Pain in left foot 582174 5075 24789 M79.672 DDx include neuroma, nerve entrapment .Patient [...] she has. Patient is establishe d with [facility] and I advised her to call.No xray at this time as she does not meet [place] criteria for xray. [id number] Livan Fatima MD Telehealt h [address] [facility] [address] [place] [address] 10/02/2020 11:39:51 10/02/2020 15:16:28 Diarrhea 68897382 R19.7 has resolved but nausea persists. Abdominal pain 39431790 R10.9 Exposure t o viral disease 8632283579 34291 Z03.818 Nausea 264108526 R11.0 use as needed Primary bi liary cholangitis 40719358 K74.3 on ursodiol taking med as directed. Renal cell carcinoma [address] in October. [id number] Livan Fatima MD Main Office [address] [address] [place] [address] 03/27/2021 08:31:51 03/27/2021 09:24:31 Adult health examination 906726915 Z00.00 [facility], has bloodwork regularly for her kidney/ ct scans Elevated blood-pressure reading without diagnosis of hypertension 515195564 R03.0 BP normal manually Renal cell carcinoma 702 495816 C64.9 Followed by urology, 1 kidney Primary bi liary cholangitis 22483851 K74.3 on ursodiol taking med as directed. Generalize d anxiety disorder 20645602 F41.1 on sertraline , considerin g weaning off. she will go to 25mg for now through the winter Administra tion of viral vaccine 24590279 Z23 [id number] Livan Fatima MD Main Office [address] [place] [address] 03/31/2021 13:28:41 03/31/2021 14:16:10 Cellulitis of left upper limb 5708424108 2401417 L03.114 NSAIDs for pain and swelling and ice. May not be an infection but instead may be a local reaction to the immunizati on. She will call if she develops diarrhea because of her h/o c. dif. [id number] Livan Fatima MD Main Office [address] [address] [place] [address] 09/12/2021 10:16:27 09/12/2021 10:46:05 Low back pain 304516684 M54.50 low back pain, will tx with prednisone burst and flexeril as needed. no driving or alcohol with med. Heat to area as needed. stretching as tolerated. if sx persist will need imaging. Call or return for worsening or concerns. History of malignant neoplasm of kidney 159454241 Z85.528 renal cell carcinoma, left kidney. nephrectom y. Primary bi liary cholangitis 81336154 K74.3 on ursodiol taking med as directed. [id number] Barbara dumont MD Telehealt h [address] [facility] [address] [place] [address] 12/24/2021 09:23:33 12/24/2021 11:19:34 Cough 62862759 R05.1 Pneumonia 398125139 J18. 9 will send over Zpak to [...] no role for CXR at this time [id number] Livan Fatima MD Main Office [address] [facility] [address] [facility] [place] [address] 04/21/2022 13:10:00 04/21/2022 14:08:51 Pre-surgery evaluation 147837751 Z01.818 Having right topaz plantar fasciotomy with Dr. Rodriguez on 05/06/22. Labs pending, EKG NSR- no acute ST abnormalit y. 04/29/22: Labs stable, EKG normal.Acc ording to Brigida Diana-opera tive Risk Assessment , based on patient's age, creatinine , ASA class and surgical procedure, patient has a 0.4% risk of diana-opera tive myocardial infarction or cardiac arrest.no further work-up necessary, may proceed with surgery as scheduled. Renal cell carcinoma 702 517267 C64.9 Followed by urology, 1 kidney Elevated blood-pressure reading without diagnosis of hypertension 376588320 R03.0 BP normal manually Primary bi liary cholangitis 29478274 K74.3 on ursodiol taking med as directed. Fibromatos is of plantar fascia of right foot 2518507026 8408922 M72.2 having fasciotomy Hyperlipidemia 06344922 E78.5 Fatigue 75685312 R53.83 Impaired f asting glycemia 709255645 R73.01 Generalize d anxiety disorder 00907918 F41.1 she will go to 25mg daily x 2 weeks. [id number] Livan Fatima MD Main Office [address] [address] [place] [address] 04/23/2022 10:39:54 04/23/2022 11:22:36 Adult health examination 529881131 Z00.00 HM due for mammo and pap- she will schedule, colonoscop y due in 2026. Flu shot today. Bloodwork was done this morning, pending results. Needs infl uenza immunization 950606833 Z23 Fibromatos is of plantar fascia of right foot 6757369021 0109401 M72.2 having fasciotomy Primary bi liary cholangitis 05504037 K74.3 on ursodiol taking med as directed. Renal cell carcinoma 702 108404 C64.9 Followed by urology, 1 kidney Generalize d anxiety disorder 90919158 F41.1 Continue sertraline 25mg daily x 2 weeks, then cut tab in half and take 12.5mg daily x 2 weeks.then will take 6.25mg daily x 1 week then stop medication .If any trouble stopping med please call/ return Pain of le ft hip joint 3795418107 50202 M25.552 [id number] Susan De Oliveira PA-C Main Office [address] [address] [place] [address] 03/16/2023 10:12:04 03/16/2023 10:58:48 Viral upper respiratory tract infection 750032477 J06.9 Pt. is advised to increase hydration and rest, add otc decongesta nts such as Delsym, diphenhydr amine. Nasal saline or saline rinse. [id number] Livan Fatima MD Main Office [address] [address] [place] [address] 04/27/2023 08:48:38 04/27/2023 09:46:23 Adult health examination 533919141 Z00.00 HM- UTD, pap, mammo and colo UTD. Fibromatos is of plantar fascia of right foot 6564862455 8354072 M72.2 had fasciotomy last May, still has pain and now has chronic tendinitis . Primary bi liary cholangitis 54335201 K74.3 on ursodiol taking med as directed. Generalize d anxiety disorder 67395131 F41.1 Continue sertraline 25mg daily Hyperlipidemia 54864781 E78.5 Impaired f asting glycemia 401287506 R73.01 Fatigue 25764886 R53.83 Body mass index 30+ - obesity 776759375 Z68.34 Elevated blood-pressure reading without diagnosis of hypertension 751665377 R03.0 BP manually 136/80, thi is elevated for her and was elevated at her last visit. She will work on cutting back on sodium, drinking more water and starting to walk again. F/U in 1 month for recheck. History of malignant neoplasm of kidney 758303227 Z85.528 Followed by urology, 1 kidney, had CT scan in October Obesity 471523039 E66.9 [id number] Livan Fatima MD Main Office [address] [facility] 207 [facility] [place] [address] 07/13/2023 11:12:57 07/13/2023 11:59:34 Fever 981939515 R50.9 + covid, continue tylenol or nyquil/ dayquil Cough 46723562 R05.9 COVID-19 056651731 U07.1 Covid positive in office, this is [...] any resp distress, severe or worsening sx. [id number] Livan Fatima MD Main Office [address] [facility] [address] [facility] [place] [address] 05/02/2024 15:16:10 05/02/2024 15:45:05 Adult health examination 519335261 Z00.00 HM- UTD, pap, mammo and colo UTD. Primary bi liary cholangitis 74185874 K74.3 on ursodiol taking med as directed. History of malignant neoplasm of kidney 256208608 Z85.528 Followed by urology, 1 kidney, had CT scan in October- all good. Generalize d anxiety disorder 56089658 F41.1 Continue sertraline 25mg daily Hyperlipidemia 53290011 E78.5 Impaired f asting glycemia 702858140 R73.01 Fatigue 91528725 R53.83 Elevated blood-pressure reading without diagnosis of hypertension 785817918 R03.0 BP manually 120/66 Obesity 085690222 E66.9 Body mass index 30+ - obesity 840522694 Z68.34 Vitamin D deficiency 347 95331 E55.9 [id number] Livan Fatima MD Main Office [address] [facility] [address] [facility] [place] [address] 07/06/2024 10:28:25 07/06/2024 11:31:13 Cough 22872879 R05.9 declines cough med currently, neg flu and covid. +OM Acute righ t otitis media 864549905 H66.91 Hydration, rest, tylenol as needed, tea with honey. clarithrom ycin as directed. [id number] Livan Fatima MD Main Office [address] 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 Health Concerns Section Related Observation LastModified by Organization Detai ls LastModified Time None Recorded Concern Status LastModified by Organization Details LastModified Time None Recorded Advance Directives Directive Y: signed on 11/21/2014 Payers Insurance Date Sequence Insurance Name Policy Number Policy Ward Covered Member ID Ward Member ID Guarantor Name 03/15/2023 1 [facility] [id number] Tere Junior [id number] Tere Junior 12/08/2024 1 [employer] [facility] [id number] Tere Junior [id number] Tere Junior Notes Date Note Type Note Provider Name and Address Organization Details Recorded Time 04/27/2023 text/html Generic HPI TemplateReported by PatientPresents for PE,No concerns but BP is high. No headaches, sometimes does get chest discomfort at random times, no palpitationsShe did stop sertraline completely, felt angry and was crying all the time, re-started 25mg and feeling better overall, not crying all the time.No period since FebruaryEating out more, cut out afternoon coffee, stress Lynda ortega [facility] 04/27/2023 15:30:51 07/13/2023 text/html Generic HPI TemplateReported by PatientSx started wednesday- body aches, couldn't sleep, chills, fever, congestion, couhg with production, slight SOB with activity, no N/V/D, no sore throat, ear pain, no headache. neg covid- this morning.Neg flu test here.Taking nyquil and dayquil with some relief. - feels like chest hurts. Noah Sanchez, BRODY [facility] [address], [address], [facility] 07/13/2023 12:14:09 05/02/2024 text/html Generic HPI TemplateReported by PatientPresents for PE,No concerns but BP is high. No headaches, sometimes does get chest discomfort at random times, no palpitationshas lost 4 lbs and 13 inches since January. is having hot flashes, night sweats, mood changes BRODY Roberts [address] [address], [place], [address], [facility] 05/02/2024 16:02:35 07/06/2024 text/html Generic HPI TemplateReported by PatientSx started Wednesday- body aches, chills, low grade temp, cough, dry for now but feels congestion, nasal congestion- yellow, sinus pressure/ pain, teeth pain, ear pain and blocked- bilateral, no N/V/D.No sick contacts BRODY Roberts [facility] [address], [place], [address], [facility] 07/06/2024 12:04:20 11/28/2024 text/html ROS as noted in the HPI Had COVID symptoms 11/03/24 and diagnosed on 11/05/24. Symptoms included f/c, muscle aches , SOB, cough, congestion; no VIZCAINO or sore throat. Got better but still has lingering fatigue and body aches. Went back to work but tired in the pm. Children did not become ill. Daughter exposed to mono but no symptoms. She has dogs that sleep on her bed with her and sometimes they have ticks. She has not seen a tic on her body recently. Livan Fatima MD [address] [address], [place], [address], [facility] 11/28/2024 10:24:26 OBGyn Episode No OBEpisode recorded.
[2025-04-02 14:30] LABS: Alanine Aminotransferase 67 U/L (0-31); Albumin Level 4.4 g/dL (3.5-5.0); Alkaline Phosphatase 111 U/L (39-117); Aspartate Amino Transferase 41 U/L (5-31); Total Protein 7.4 g/dL (6.5-8.0)
== END 2025-04-02 12:03 | disposition home or self-care (01) ==
LOC: HO.LAB 12:02
PROVIDERS: PCP Physician Assistant Medical; Visit Provider Internal Medicine Gastroenterology
DX: K74.3 Primary biliary cirrhosis (principal)
CPT/HCPCS: 36415; 80076

== ENCOUNTER 2025-04-20 13:18 | Outpatient (REF) | payer OTHER, SELFPAY ==
--- NOTE | 2025-04-20 13:24 | EMG_ITS ---
Chief complaint: Bilateral hand numbness, left worse than right Reason for referral: Evaluate for Carpal Tunnel Syndrome or ulnar neuropathy Referred by: Dr. Hoover Procedure done: Bilateral upper extremities NCS/EMG Precautions and/or limitations: None The limb temperature was monitored continuously and remained between 32-36 degrees C during the performance of the NCS. Nerve Conduction Studies Anti Sensory Summary Table ?Stim Site NR Onset (ms) Norm Onset (ms) Peak (ms) Norm Peak (ms) O-P Amp (?V) Norm O-P Amp Site1 Site2 Delta-0 (ms) Dist (cm) Job (m/s) Norm Job (m/s) Left Median Anti Sensory (2nd Digit) Wrist ? 4.7 5.7 <3.6 13.1 >10 Wrist 2nd Digit 4.7 14.0 30 Right Median Anti Sensory (2nd Digit) Wrist ? 3.9 5.5 <3.6 10.7 >10 Wrist 2nd Digit 3.9 14.0 36 Right Radial Anti Sensory (Thumb) Forearm ? 1.7 2.2 <3.1 19.9 Forearm Thumb 1.7 0.0 Left Ulnar Anti Sensory (5th Digit) Wrist ? 1.9 2.9 <3.7 28.9 >15.0 Wrist 5th Digit 1.9 14.0 74 Right Ulnar Anti Sensory (5th Digit) Wrist ? 2.2 2.9 <3.7 29.3 >15.0 Wrist 5th Digit 2.2 14.0 64 Motor Summary Table ?Stim Site NR Onset (ms) Norm Onset (ms) O-P Amp (mV) Norm O-P Amp iAmp (mV) Amp (1st) (%) Site1 Site2 Delta-0 (ms) Dist (cm) Job (m/s) Norm Job (m/s) Left Median Motor (Abd Poll Brev) Wrist ? 5.8 <3.9 9.2 >4.5 10.9 100.0 Elbow Wrist 3.9 18.5 47 >45 Elbow ? 9.7 8.9 10.3 96.7 Right Median Motor (Abd Poll Brev) Wrist ? 5.7 <3.9 8.8 >4.5 10.8 100.0 Elbow Wrist 4.1 20.0 49 >45 Elbow ? 9.8 8.5 10.3 96.6 Left Ulnar Motor (Abd Dig Minimi) Wrist ? 2.6 <3.0 9.8 >5 12.0 100.0 B Elbow Wrist 3.3 19.0 58 >45 B Elbow ? 5.9 9.8 12.0 100.0 A Elbow B Elbow 1.4 10.0 71 >45 A Elbow ? 7.3 9.7 11.9 99.0 Right Ulnar Motor (Abd Dig Minimi) Wrist ? 2.4 <3.0 12.9 >5 15.2 100.0 B Elbow Wrist 3.5 19.0 54 >45 B Elbow ? 5.9 12.3 15.1 95.3 A Elbow B Elbow 1.4 10.0 71 >45 A Elbow ? 7.3 12.2 15.0 94.6 EMG ?Side Muscle Nerve Root Ins Act Fibs Psw Amp Dur Poly Recrt Int Pat Comment Left 1stDorInt Ulnar C8-T1 Nml Nml Nml Nml Nml 0 Nml Complete Left FlexCarRad Median C6-7 Nml Nml Nml Nml Nml 0 Nml Complete Left Biceps Musculocut C5-6 Nml Nml Nml Nml Nml 0 Nml Complete Left Triceps Radial C6-7-8 Nml Nml Nml Nml Nml 0 Nml Complete Left Deltoid Axillary C5-6 Nml Nml Nml Nml Nml 0 Nml Complete FINDINGS: Bilateral median motor nerves showed prolonged distal latency, normal amplitude and normal conduction velocity. Bilateral median sensory nerves showed prolonged peak latency. All other nerves tested were within normal. Concentric needle EMG was performed in selected muscles of the left upper extremity. Study did not reveal signs of electric abnormalities as shown in the table above. IMPRESSION: 1. This is an abnormal study. 2. There is electrodiagnostic evidence for bilateral moderate-severe median neuropathy at the wrist, consistent with carpal tunnel syndrome. 3. There is no electrodiagnostic evidence for ulnar neuropathy, brachial plexopathy, or cervical radiculopathy. Thank you for your kind referral. Colleen Goss MD, JAVI Board Certified, [place] Board of Physical [employer] and Rehabilitation (ABPMR) Board Certified, [place] Board of Electrodiagnostic Medicine (ABEM) [facility] [address] [facility]
--- OUTSIDE RECORDS SUMMARY | 2025-04-20 16:01 | XMS_ITS | Clinical Summary ---
Author Organization [facility] [address] [facility] Address [address] [place] [address] Phone Care Team Providers Care Fur Dry Cleaner Name Role Phone Noah Sanchez Primary Care Provider Allergies Active Allergy Reactions Criticality Noted Date Comments Amoxicillin 06/08/2024 Cephalexin 06/08/2024 Medications sertraline (ZOLOFT) 25 mg tablet Take 1 tablet (25 mg total) by mouth 1 (one) time each day. Active hyoscyamine (ANASPAZ) 0.125 mg disintegrating tablet every 4 hours. Active fluocinolone acetonide oiL 0.01 % drops APPLY TO EARS TWICE DAILY NEEDED. 05/15/20 24 Active multivit with minerals/lutein (MULTIVITAMIN 50 PLUS ORAL) Take 1 tablet by mouth. 08/21/19 20 Active hydrOXYzine HCL (ATARAX) 10 mg tabletIndications: Pruritus Take 2 tablets (20 mg total) by mouth 1 (one) time each day in the evening. Start with once daily at night and increase to 2 if tolerated. 60 each 03/30/20 25 025 Active cholestyramine (QUESTRAN) 4 gram packetIndications: Primary biliary cholangitis (CMS/HCC V24, CMS/HCC V28) TAKE 1 PACKET BY MOUTH 2 TIMES A DAY WITH MEALS. DISSOLVE IN 8 OZ OF LIQUID AND DRINK BEFORE A MEAL 180 packet 1 04/03/20 25 Active cholestyramine (QUESTRAN) 4 gram powderIndications: Primary biliary cholangitis (CMS/HCC V24, CMS/HCC V28) Take 1 packet (4 g total) by mouth 2 (two) times a day with meals. Dissolve in 8 oz of liquid and drink before a meal 60 packet 1 08/ 025 Discontinued Encounters Date Type Department Care Team Description 04/04/2025 Results Follow-Up Gastroenterology - [address] [place] [address] Roseline Leone MD from Last 3 Months Surgical History Surgery Date Site/Laterality Comments NEPHRECTOMY Left SECTION x 2 COLONOSCOPY W/ BIOPSIES 07/14/2016 for diarrhea - nl bx TONSILLECTOMY Medical History Medical History Date Comments Primary biliary cholangitis ([facility] V24, [facility] V28) 06/2019 Alk phos 290 +AMA 157.5 [...] Last Done Comments Breast Cancer Screening 1975 Colorectal Cancer Screening: Colonoscopy 1975 Hepatitis B Vaccines (1 of 3 - 19+ 3-dose series) 1994 Pneumococcal Vaccine: 50+ Years (1 of 2 - PCV) 1994 Cervical Cancer Screening: Pap Smear 02/02/1996 HIV Screening 04/29/2024 Hepatitis C Screening 04/29/2024 Social Influencers of Health Screening 04/29/2024 Depression Screening 07/05/2024 Zoster Vaccines (1 of 2) 2025 COVID-19 Vaccine (3 - season) 2025 07/31/2020, 07/03/2020 Influenza Vaccine (#1) 2025 , 04/21/2023, 04/23/2022, Additional history exists DTaP,Tdap,and Td Vaccines (2 - Td or Tdap) 03/27/2031 03/27/2021 RSV Immunization Adult Patients (1 - 1-dose 75+ series) 2050 HIB Vaccines Aged Out No longer eligi [...] Procedure Name Priority Date/Time Associated Diagnosis Comments HEPATIC FUNCTION PANEL Routine 04/03/2025 Primary biliary cholangitis ([facility] V24, [facility] V28) from Last 3 Months Results * Hepatic function panel (04/03/2025) Blood Venous blood specimen / Unknown us Roseline Leone MD LAB BLOOD ORDERABLES Final Res ult EXTERNAL LAB (NON-INTERFACED) from Last 3 Months Insurance [employer] [place] Care Teams Fur Dry Cleaner Relationship Specialty Start Date End Date Noah Sanchez PA [address] [address] PCP - General Physician Rv Repairer 04/28/24
--- OUTSIDE RECORDS SUMMARY | 2025-04-20 16:02 | XMS_ITS | Encounter Summary ---
Author Organization [facility] Address [address] [place] [address] Care Team Providers Care Phlebotomist Lab Assistant Name Role Phone Noha Sanchez Primary Care Provider [phone] Encounter Details Date Type Department Care Team (Late st Contact Info) Description 04/04/2025 Results Follow-Up Gastroenterology - [address] [place] [address] Roseline Leone MD [address] [place] [address] Social History Tobacco Use Types Packs/Day Years Used Date Smoking Tobacco: Former Cigarettes Alcohol Use Standard Drinks/Week Comments Yes 0 (1 standard drink = 0.6 oz pur e alcohol) social Comments Unknown Sex and Gender Information Value Date Recorded Sex Assigned at Not on file Legal Sex Female 11:15 AM EDT Gender Identity Not on file Sexual Orientation Not on file documented as of this encounter Progress Notes * Roseline Leone MD - 04/04/2025 11:03 AM EDT Tere, Your liver enzymes are mildly elevated. Your alkaline phosphatase which is usually elevated in primary biliary cholangitis is in the normal range which is good. Some of the mild elevation in your AST and ALT right now may be secondary to some mild underlying fatty liver as well. How is your itchiness? Dr. Leone documented in this encounter Plan of Treatment Not on file documented as of this encounter Visit Diagnoses Not on filedocumented in this encounter Care Teams Phlebotomist Lab Assistant Relationship Specialty Start Date End Date Noah Sanchez PA [address] [address] PCP - General Physician Crime Scene Photographer 04/28/24 documented as of this encounter
--- OUTSIDE RECORDS SUMMARY | 2025-04-20 16:02 | XMS_ITS | Patient Health Record ---
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 . [...] . 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
== END 2025-04-20 13:19 | disposition home or self-care (01) ==
LOC: HO.NEURO 13:18
PROVIDERS: PCP Physician Assistant Medical; Visit Provider Orthopaedic Surgery
DX: R20.0 Anesthesia of skin (principal); R20.2 Paresthesia of skin
CPT/HCPCS: 95886; 95911

== ENCOUNTER → 2025-04-20 13:24 | Outpatient (BNV) | payer OTHER, SELFPAY | PROVIDERS: PCP Physician Assistant Medical; Visit Provider Physical Medicine & Rehabilitation | DX: G56.13 Other lesions of median nerve, bilateral upper limbs (principal) | CPT/HCPCS: 95886; 95911 ==

== ENCOUNTER 2025-05-02 15:30 | Outpatient (AMB) | payer OTHER, SELFPAY ==
--- NOTE | 2025-05-02 15:31 | A.OFFVIS_ITS ---
Vital Signs 05/02/25 15:33 Height 5 ft 2 in Weight 190 lb BMI 34.7 Handedness Left Intake Visit Reasons: OV: B/L hands, EMG review Intake Note: Tere is a 50 year old right left hand dominant female who presents today for an EMG/NCS review of her bilateral upper extremities. Wants to discuss surgery starting with left hand. IMPRESSION: 1. This is an abnormal study. 2. There is electrodiagnostic evidence for bilateral moderate-severe median neuropathy at the wrist, consistent with carpal tunnel syndrome. 3. There is no electrodiagnostic evidence for ulnar neuropathy, brachial plexopathy, or cervical radiculopathy. Allergies amoxicillin Allergy (Verified 05/02/25 15:33) Rash cephalexin (From Keflex) Allergy (Verified 05/02/25 15:33) Rash HPI HPI OV: B/L hands, EMG review: Details: Teer is a 50 year old right left hand dominant female who presents today for an EMG/NCS review of her bilateral upper extremities. Wants to discuss surgery starting with left hand. IMPRESSION: 1. This is an abnormal study. 2. There is electrodiagnostic evidence for bilateral moderate-severe median neuropathy at the wrist, consistent with carpal tunnel syndrome. 3. There is no electrodiagnostic evidence for ulnar neuropathy, brachial plexopathy, or cervical radiculopathy. [facility] Medical History IBS (irritable bowel syndrome) Renal cell carcinoma Surgical History History of nephrectomy, left Social History Patient Tobacco Use Status: Never used Tobacco Current occupational status: employed 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/ [employer] Physical Exam Vital Signs: BMI result Body Mass Index 34.7 Extrem Other: Neuro: Numbness sensation of the tips of all digits of the left hand in the office today No thenar or intrinsic wasting. Good APB muscle firing and good finger cross. Vascular: Capillary refill brisk. ROM: Patient can make a fist and extend all their digits. Skin: No lacerations or abrasions noted. General: No ecchymosis. No erythema or evidence of infection. Assessment & Plan Assessment & Plan (1) Bilateral carpal tunnel syndrome: Code(s): G56.03 - Carpal tunnel syndrome, bilateral upper limbs Category: Medical Plan 1. Left carpal tunnel syndrome Intermittent, daily, worse at night I educated the patient about the condition. I discussed both operative and nonoperative treatment options. The patient would like to proceed with surgery. The risks and benefits of operative treatment were discussed with the patient and the patient wishes to proceed with surgery. These risks include, but are not limited to, risk of damage to blood vessels, nerves, tendons, infection, recurrence, incomplete relief of preoperative symptoms, persistent pain, possible need for further surgery, and the risks associated with regional blocks and/or anesthesia. Plan is to take the patient to the operating room at some point in the next few weeks for the following procedures: 1. Left carpal tunnel release under local All of the preoperative paperwork including the consent was discussed today. All of the patient's questions were answered in the clinic today. The patient understands that they will be in contact with our surgical scrub tech to discuss scheduling their procedure. Patient denies diabetes, blood thinners, asthma, heart issues, lung issues, kidney issues, or current smoking. Coding Level of Care Code Est Pt Level 4 (58123) Diagnoses Bilateral carpal tunnel syndrome G56.03
[2025-05-02 15:33] VITALS: BMI 34.7
--- OUTSIDE RECORDS SUMMARY | 2025-05-02 19:50 | XMS_ITS | Encounter Summary ---
Author Organization [facility] Address [address] [place] [address] Care Team Providers Care Flash Welding Machine Operator Name Role Phone Noah Sanchez Primary Care Provider [phone] Encounter Details Date Type Department Care Team ([facility] st Contact Info) Description 04/04/2025 Results Follow-Up Gastroenterology - [address] [facility] [address] [place] [id number] Roseline Leone MD [address] [place] [id number] Social History Tobacco Use Types Packs/Day Years [...] Some of the mild elevation in your ASTand ALT right now may be secondary to some mild underlying fatty liver as well. How is your itchiness? Dr. Leone documented in this encounter Plan of Treatment Not on file documented as of this encounter Visit Diagnoses Not on filedocumented in this encounter Care Teams Flash Welding Machine Operator Relationship Specialty Start Date End Date Noah Sanchez PA [address] [id number] PCP - General Physician Coconut Jelly Roller 04/28/24 documented as of this encounter
--- OUTSIDE RECORDS SUMMARY | 2025-05-02 19:50 | XMS_ITS | Clinical Summary ---
Author Organization [facility] [address] [facility] Address [address] [place] [address] Phone Care Team Providers Care Corporate Relations Director Name Role Phone Noah Sanchez Primary Care Provider [phone] Allergies Active Allergy Reactions Criticality Noted Date [...] 1 tablet by mouth. 08/21/19 20 Active cholestyramine (QUESTRAN) 4 gram packetIndications: Primary biliary cholangitis (CMS/HCC V24, CMS/HCC V28) TAKE 1 PACKET BY MOUTH 2 TIMES A DAY WITH MEALS. DISSOLVE IN 8 OZ OF LIQUID AND DRINK BEFORE A MEAL 180 packet 1 04/03/20 25 Active hydrOXYzine HCL (ATARAX) 10 mg tabletIndications: Pruritus TAKE 2 TABLETS BY MOUTH 1 TIME EACH DAY IN THE EVENING. START WITH ONCE DAILY AT NIGHT AND INCREASE TO 2 IF TOLERATED. 180 tablet 1 04/23/20 25 Active cholestyramine (QUESTRAN) 4 gram powderIndications: Primary biliary cholangitis (CMS/HCC V24, CMS/HCC V28) Take 1 packet (4 g total) by mouth 2 (two) times a day with meals. Dissolve in 8 oz of liquid and drink before a meal 60 packet 1 02/28/20 25 025 Discontinued hydrOXYzine HCL (ATARAX) 10 mg tabletIndications: Pruritus Take 2 tablets (20 mg total) by mouth 1 (one) time each day in the evening. Start with once daily at night and increase to 2 if tolerated. 60 each 03/30/20 25 025 Discontinued Encounters Date Type Department Care Team Description 04/04/2025 Results Follow-Up Gastroenterology - [address] [facility] [address] [place] [address] Roseline Leone MD from Last 3 Months Surgical History Surgery Date Site/Laterality Comments NEPHRECTOMY Left SECTION x 2 COLONOSCOPY W/ BIOPSIES 07/14/2016 for diarrhea - nl bx TONSILLECTOMY Medical History Medical History Date Comments Primary biliary cholangitis (CMS/HCC V24, CMS/HCC V28) 06/2019 Alk phos 290 +AMA 157.5 [...] FUNCTION PANEL Routine 04/03/2025 Primary biliary cholangitis (CMS/HCC V24, CMS/HCC V28) from Last 3 Months Results * Hepatic function panel (04/03/2025) Blood Venous blood specimen / Unknown us Roseline Leone MD LAB BLOOD ORDERABLES Final Res ult EXTERNAL LAB (NON-INTERFACED) from Last 3 Months Insurance [employer] [facility] Care Teams Corporate Relations Director Relationship Specialty Start Date End Date Noah Sanchez PA [address] [address] PCP - General Physician Transitional Studies Instructor 04/28/24
--- OUTSIDE RECORDS SUMMARY | 2025-05-02 19:50 | XMS_ITS | Patient Health Record ---
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 . [...] . 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 as [...] Insured Coverage Start Date Coverage End Date [facility] [address] [place] [address] [phone] [id number] Tere Junior Self - patient is the insured Medical (General) History Medical History History ICD Code Anxiety Back,Hip,and Knee pain Chicken pox keloids Psoriasis/eczema Raynauds syndrome Sciatica Anemia chronic sinusitis kidney cancer covid-19 Surgical History Surgery Date(Month/Year) Cysts removed Tonsillectomy 1998 01/2004, 03/2007 tubal ligation 2011 kidney surgery - left kidney removed 11/2020 [place] plantar fasciotomy right 2
--- OUTSIDE RECORDS SUMMARY | 2025-05-02 19:51 | XMS_ITS | Data Portability ---
Author Organization [facility], Main Office Address [address] [facility] [address] [place] [address] Care Team Providers Care Commission Sales Associate Name Role Phone LAURA NAIK Casket Liner SANDRA NIETO Requirements Analyst GILMER MARTINO Merchandising Specialist ODILIA DOYLE Urologist TRESA BERRY Urologist ALLAN DE OLIVEIRA Primary Care Provider Assessment No assessment recorded. Plan of Treatment Reminders Order Date Submit Date Provider Last Modified By Organization Details Last Modified Time Details Appointments PE EST 2024 08:45A M Allan De Oliveira PAKatarzyna Not available Not available Not available Lab ed Muñoz, 25-hyd tim, total, serum 2024 025 [facility] (Lab), [address] [place] [address], [id number], 11/29/2024 12:06:32 TSH, serum or plasma 2024 025 [facility] (Lab), [address] [place] [address], [id number], 11/28/2024 10:16:46 lyme antibo dy screen , EIA/el josesito, serum 2024 025 [facility] (Lab), [address] [place] [address], [address], 11/28/2024 10:16:46 C-reac tive protei n, quanti tative , serum or plasma 2024 025 [facility] (Lab), [address] [place] [address], [address], 11/28/2024 10:18:19 ESR (eryth rocyte sedime ntatio n rate), blood 2024 025 [facility] (Lab), [address] [place] [address], [address], 11/29/2024 12:06:33 CMP, serum or plasma 2024 025 [facility] (Lab), [address] [place] [address], [address], 11/29/2024 12:06:30 CBC 2024 025 [facility] (Lab), [address] [place] [address], [address], 11/28/2024 10:18:19 rapid flu (A+B) 2024 025 MANISHA In-Office Order, Internal Use Only DO Not Attach Compendium DO Not Attach Compendium, Do Not Delete/merge, [id number] 07/06/2024 11:16:34 rapid SARS CoV 2 Ag, QL IA, respir atory specim en 2024 025 ENID In-Office Order, Internal Use Only DO Not Attach Compendium DO Not Attach Compendium, Do Not Delete/merge, [id number] 07/06/2024 11:09:10 CMP, serum or plasma 2023 024 [facility] (Lab), [address] [place] [address], [address], 05/12/2024 11:32:57 lipid panel, serum 2023 024 [facility] (Lab), [address] [place] [address], [address], 05/12/2024 11:32:57 TSH, serum or plasma 2023 024 [facility] (Lab), [address] [place] [address], [address], 11/29/2024 09:28:10 T4, free, serum 2023 024 [facility] (Lab), [address] [place] [address], [address], 05/02/2024 15:28:53 HbA1c (hemog lobin A1c), blood 2023 024 [facility] (Lab), [address] [place] [address], [address], 05/02/2024 15:28:52 vitami n D, 25-hyd tim, total, serum 2023 024 [facility], [address], [place], [address], 07/31/2024 09:12:11 CBC w/ auto diff 2023 024 [facility] (Lab), [address] [place] [address], [address], 11/29/2024 12:06:29 rapid flu (A+B) 2023 024 MANISHA In-Office Order, Internal Use Only DO Not Attach Compendium DO Not Attach Compendium, Do Not Delete/merge, [id number] 07/13/2023 11:40:33 rapid SARS CoV 2 Ag, QL IA, respir atory specim en 2023 024 MANISHA In-Office Order, Internal Use Only DO Not Attach Compendium DO Not Attach Compendium, Do Not Delete/merge, [id number] 07/13/2023 12:02:21 CMP, serum or plasma 2022 023 [facility] (Lab), [address] [place], [address], 05/05/2023 11:26:05 lipid panel, serum 2022 023 [facility] (Lab), [address] [place], [address], 05/05/2023 11:26:06 TSH, serum or plasma 2022 023 [facility] (Lab), [address] [place], [address], 05/06/2023 11:55:36 T4, free, serum 2022 023 [facility] (Lab), [address] [place], [address], 04/27/2023 09:18:01 HbA1c (hemog lobin A1c), blood 2022 023 [facility] (Lab), [address] [place], [address], 04/27/2023 09:18:01 CBC w/ auto diff 2022 023 [facility] (Lab), [address] [place], [address], 04/27/2023 09:18:01 Referral None record ed. Procedures None record ed. Surgeries None record ed. Imaging XR, chest - cough, fever, chills , chest pain, r/o PNA 2023 024 [facility] (Imaging), [address] [place], [address], 07/13/2023 13:39:20 electr ocardi ogram 2022 023 [email or web address] In-Office Order, Internal Use Only DO Not Attach Compendium DO Not Attach Compendium, Do Not Delete/merge, [id number] 04/27/2023 09:46:23 Medication Orders clarit hromyc in 500 mg tablet 2024 025 [id number], [address] [place], [address], 11/28/2024 09:35:26 sertra line 25 mg tablet 2023 024 [id number], [address] [place], [address], 05/02/2024 15:27:20 Patient TargetsNo targets recorded. Patient Instructions Encounter Date Encounter Id Patient Instructions Last Modified By Organization Details Last Modified Time 04/27/2023 [id number] dash diet: care instructions jthabet Not available 04/27/2023 09:52:40 high blood pressure: care instructions jthabet Not available 04/27/2023 09:52:41 low sodium diet (2,000 milligram): care instructions jthabet Not available 04/27/2023 09:52:40 Starting a Weight-Loss Plan: Care Instructions nbarrows Not available 04/27/2023 15:30:46 To call or return for worsening or concerns jthabet Not available 04/27/2023 09:15:56 07/13/2023 [id number] 10 things to do when you have covid-19 jthabet Not available 07/13/2023 12:12:37 coronavirus (covid-19): care instructions jthabet Not available 07/13/2023 12:12:37 To call or return for worsening or concerns jthabet Not available 07/13/2023 12:13:59 05/02/2024 [id number] dash diet: care instructions jthabet Not available 05/02/2024 15:27:17 high blood pressure: care instructions jthabet Not available 05/02/2024 15:27:17 low sodium diet (2,000 milligram): care instructions jthabet Not available 05/02/2024 15:27:17 Starting a Weight-Loss Plan: Care Instructions jthabet Not available 05/02/2024 15:27:16 To call or return for worsening or concerns jthabet Not available 05/02/2024 15:32:51 07/06/2024 [id number] To call or return for worsening or concerns jthabet Not available 07/06/2024 11:04:41 11/28/2024 [id number] myalgic encephalomyeliti s/chronic fatigue syndrome: care instructions marianneerazzo Not available 11/28/2024 10:15:41 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 [...] DO Not Attach Compendium, Do Not Delete/merge, [id number] 07/13/2023 11:48:22 07/13/19 24 07/13/2023 rapid flu (A+B) Flu A negati ve Not Available In-Office Order Internal Use Only DO Not Attach Compendium DO Not Attach Compendium, Do Not Delete/merge, [id number] 07/13/2023 11:21:58 07/13/19 24 07/13/2023 rapid flu (A+B) Flu B negati ve Not Available In-Office Order Internal Use Only DO Not Attach Compendium DO Not Attach Compendium, Do Not Delete/merge, [id number] 07/13/2023 11:21:58 07/06/19 25 07/06/2024 rapid flu (A+B) Flu A negati ve Not Available In-Office Order Internal Use Only DO Not Attach Compendium DO Not Attach Compendium, Do Not Delete/merge, [id number] 07/06/2024 10:50:01 07/06/19 25 07/06/2024 rapid flu (A+B) Flu B negati ve Not Available In-Office Order Internal Use Only DO Not Attach Compendium DO Not Attach Compendium, Do Not Delete/merge, [id number] 07/06/2024 10:50:01 07/06/19 25 07/06/2024 rapid SARS CoV 2 Ag, QL IA, respi rator y speci men RAPID SARS COV 2 negati ve Not Available In-Office Order Internal Use Only DO Not Attach Compendium DO Not Attach Compendium, Do Not Delete/merge, [id number] 07/06/2024 10:50:14 11/29/1911/29/2024 CBC WITH DIFFE RENTI AL/PL ATELE T WBC 9.1 x10e3 /uL 3.4-10 .8 normal Not Available [facility] ([facility]) [address] [facility], [place], [address], 11/29/2024 12:06:29 11/29/19 25 11/29/2024 CBC WITH DIFFE RENTI AL/PL ATELE T RBC 5.05 x10e6 /uL 3.77-5 .28 normal Not Available [facility] ([facility]) [address] [place], [address], 11/29/2024 12:06:29 11/29/19 25 11/29/2024 CBC WITH DIFFE RENTI AL/PL ATELE T hemoglobin 13.2 g/dL 11.1-1 5.9 normal Not Available [facility] ([facility]) [address] [place], [address], 11/29/2024 12:06:29 11/29/19 25 11/29/2024 CBC WITH DIFFE RENTI AL/PL ATELE T hematocrit 41.4 % 34.0-4 6.6 normal Not Available [facility] ([facility]) [address] [place], [address], 11/29/2024 12:06:29 11/29/1911/29/2024 CBC WITH DIFFE RENTI AL/PL ATELE T MCV 82 fL 79-97 normal Not Available [facility] ([facility]) [address] [place], [address], 11/29/2024 12:06:29 11/29/19 25 11/29/2024 CBC WITH DIFFE RENTI AL/PL ATELE T MCH 26.1 pg 26.6-3 3.0 below low normal Not Available [facility] ([facility]) [address] [facility], [place], [address], 11/29/2024 12:06:29 11/29/1911/29/2024 CBC WITH DIFFE RENTI AL/PL ATELE T MCHC 31.9 g/dL 31.5-3 5.7 normal Not Available [facility] ([facility]) [address] [facility], [place], [address], 11/29/2024 12:06:29 11/29/19 25 11/29/2024 CBC WITH DIFFE RENTI AL/PL ATELE T RDW 13.5 % 11.7-1 5.4 Not Available [facility] ([facility]) [address] [facility], [place], [address], 11/29/2024 12:06:29 11/29/19 25 11/29/2024 CBC WITH DIFFE RENTI AL/PL ATELE T platelets 387 x10e3 /uL 150-45 0 normal Not Available [facility] ([facility]) [address] [facility], [place], [address], 11/29/2024 12:06:29 11/29/19 25 11/29/2024 CBC WITH DIFFE RENTI AL/PL ATELE T neutrophils 57 % not estab. normal Not Available [facility] ([facility]) [address] [place], [address], 11/29/2024 12:06:29 11/29/1911/29/2024 CBC WITH DIFFE RENTI AL/PL ATELE T lymphs 28 % not estab. normal Not Available [facility] ([facility]) [address] [place], [address], 11/29/2024 12:06:29 11/29/19 25 11/29/2024 CBC WITH DIFFE RENTI AL/PL ATELE T monocytes 9 % not estab. normal Not Available [facility] ([facility]) [address] [place], [address], 11/29/2024 12:06:29 11/29/19 25 11/29/2024 CBC WITH DIFFE RENTI AL/PL ATELE T eos 5 % not estab. normal Not Available [facility] ([facility]) [address] [place], [address], 11/29/2024 12:06:29 11/29/1911/29/2024 CBC WITH DIFFE RENTI AL/PL ATELE T basos 1 % not estab. normal Not Available [facility] ([facility]) [address] [place], [address], 11/29/2024 12:06:29 11/29/19 25 11/29/2024 CBC WITH DIFFE RENTI AL/PL ATELE T immature cells LEAD CUSTODIAN Not Available [facility] ([facility]) [address] [place], [address], 11/29/2024 12:06:29 11/29/19 25 11/29/2024 CBC WITH DIFFE RENTI AL/PL ATELE T neutrophils (absolute) 5.3 x10e3 /uL 1.4-7. 0 normal Not Available [facility] ([facility]) [address] [place], [address], 11/29/2024 12:06:29 11/29/19 25 11/29/2024 CBC WITH DIFFE RENTI AL/PL ATELE T lymphs (absolute) 2.5 x10e3 /uL 0.7-3. 1 normal Not Available [facility] ([facility]) [address] [place], [address], 11/29/2024 12:06:29 11/29/19 25 11/29/2024 CBC WITH DIFFE RENTI AL/PL ATELE T monocytes(ab solute) 0.8 x10e3 /uL 0.1-0. 9 normal Not Available [facility] ([facility]) [address] [place], [address], 11/29/2024 12:06:29 11/29/19 25 11/29/2024 CBC WITH DIFFE RENTI AL/PL ATELE T eos (absolute) 0.4 x10e3 /uL 0.0-0. 4 normal Not Available [facility] ([facility]) [address] [facility], [place], [address], 11/29/2024 12:06:29 11/29/19 25 11/29/2024 CBC WITH DIFFE RENTI AL/PL ATELE T baso (absolute) 0.1 x10e3 /uL 0.0-0. 2 normal Not Available [facility] ([facility]) [address] [facility], [place], [address], 11/29/2024 12:06:29 11/29/1911/29/2024 CBC WITH DIFFE RENTI AL/PL ATELE T immature granulocytes 0 % not estab. Not Available [facility] ([facility]) [address] [facility], [place], [address], 11/29/2024 12:06:29 11/29/1911/29/2024 CBC WITH DIFFE RENTI AL/PL ATELE T immature grans (abs) 0.0 x10e3 /uL 0.0-0. 1 Not Available [facility] ([facility]) [address] [place], [address], 11/29/2024 12:06:29 11/29/1911/29/2024 CBC WITH DIFFE RENTI AL/PL ATELE T NRBC LEAD CUSTODIAN Not Available [facility] ([facility]) [address] [place], [address], 11/29/2024 12:06:29 11/29/1911/29/2024 CBC WITH DIFFE RENTI AL/PL ATELE T hematology comments: LEAD CUSTODIAN Not Available [facility] ([facility]) [address] [place], [address], 11/29/2024 12:06:29 11/29/19 25 11/29/2024 COMP. METAB OLIC PANEL (14) glucose 99 mg/dL 70-99 normal Not Available [facility] ([facility]) [address] [facility], [place], [address], 11/29/2024 12:06:30 11/29/19 25 11/29/2024 COMP. METAB OLIC PANEL (14) BUN 15 mg/dL 6-24 normal Not Available [facility] ([facility]) [address] [facility], [place], [address], 11/29/2024 12:06:30 11/29/19 25 11/29/2024 COMP. METAB OLIC PANEL (14) creatinine 1.08 mg/dL 0.57-1 .00 above high normal Not Available [facility] ([facility]) [address] [facility], [place], [address], 11/29/2024 12:06:30 11/29/19 25 11/29/2024 COMP. METAB OLIC PANEL (14) eGFR 63 mL/mi n/1.7 3 >59 normal Not Available [facility] ([facility]) [address] [facility], [place], [address], 11/29/2024 12:06:30 11/29/19 25 11/29/2024 COMP. METAB OLIC PANEL (14) BUN/creatini ne ratio 14 9-23 normal Not Available [facility] ([facility]) [address] [place], [address], 11/29/2024 12:06:30 11/29/19 25 11/29/2024 COMP. METAB OLIC PANEL (14) sodium 140 mmol/ L 134-14 4 normal Not Available [facility] ([facility]) [address] [place], [address], 11/29/2024 12:06:30 11/29/19 25 11/29/2024 COMP. METAB OLIC PANEL (14) potassium 5.1 mmol/ L 3.5-5. 2 normal Not Available [facility] ([facility]) [address] [place], [address], 11/29/2024 12:06:30 11/29/19 25 11/29/2024 COMP. METAB OLIC PANEL (14) chloride 101 mmol/ L 96-106 normal Not Available [facility] ([facility]) [address] [facility], [place], [address], 11/29/2024 12:06:30 11/29/19 25 11/29/2024 COMP. METAB OLIC PANEL (14) carbon dioxide, total 23 mmol/ L 20-29 normal Not Available [facility] ([facility]) [address] [facility], [place], [address], 11/29/2024 12:06:30 11/29/19 25 11/29/2024 COMP. METAB OLIC PANEL (14) calcium 10.0 mg/dL 8.7-10 .2 normal Not Available [facility] ([facility]) [address] [place], [address], 11/29/2024 12:06:30 11/29/19 25 11/29/2024 COMP. METAB OLIC PANEL (14) protein, total 7.1 g/dL 6.0-8. 5 normal Not Available [facility] ([facility]) [address] [place], [address], 11/29/2024 12:06:30 11/29/19 25 11/29/2024 COMP. METAB OLIC PANEL (14) albumin 4.4 g/dL 3.9-4. 9 normal Not Available [facility] ([facility]) [address] [place], [address], 11/29/2024 12:06:30 11/29/19 25 11/29/2024 COMP. METAB OLIC PANEL (14) globulin, total 2.7 g/dL 1.5-4. 5 Not Available [facility] ([facility]) [address] [facility] [place], [address], 11/29/2024 12:06:30 11/29/19 25 11/29/2024 COMP. METAB OLIC PANEL (14) bilirubin, total 0.3 mg/dL 0.0-1. 2 normal Not Available [facility] ([facility]) [address] [facility] [place], [address], 11/29/2024 12:06:30 11/29/19 25 11/29/2024 COMP. METAB OLIC PANEL (14) alkaline phosphatase 145 IU/L 44-121 above high normal Not Available [facility] ([facility]) [address] [facility] [place], [address], 11/29/2024 12:06:30 11/29/19 25 11/29/2024 COMP. METAB OLIC PANEL (14) AST (SGOT) 27 IU/L 0-40 normal Not Available [facility] ([facility]) [address] [facility] [place], [address], 11/29/2024 12:06:30 11/29/19 25 11/29/2024 COMP. METAB OLIC PANEL (14) ALT (SGPT) 40 IU/L 0-32 above high normal Not Available [facility] ([facility]) [address] [facility] [place], [address], 11/29/2024 12:06:30 11/29/19 25 11/29/2024 TSH TSH 1.500 uIU/m L 0.450- 4.500 normal Not Available [facility] ([facility]) [address] [facility] [place], [address], 11/29/2024 12:06:31 11/29/19 25 11/29/2024 VITAM IN [...] um and D. Nicholas villa [place]: [facility] . 2. Charlotte white [place], Kelly hernandes [place], sAhley off-F errar i VIZCAINO, et al. Evalu ation , treat ment, and preve ntion of vitam in D defic iency : an Endoc rine Socie ty clini dheeraj pract ice guide line. JCEM. 2010; 96(7) :1911 -30. Not Available [facility] ([facility]) [address] [facility], [place], [address], 11/29/2024 12:06:32 11/29/1911/29/2024 LYME DISEA SE SEROL OGY W/REF RICARDO [...] is recom gigi d. Not Available [facility] ([facility]) [address] [facility], [place], [address], 11/29/2024 12:06:32 11/29/19 25 11/29/2024 SEDIM ENTAT ION RATE- WESTE RGREN sedimentatio n rate-westerg angel 27 mm/HR 0-32 normal Not Available [facility] ([facility]) [address] [facility], [place], [address], 11/29/2024 12:06:33 11/29/19 25 11/29/2024 C-SASHA CTIVE PROTE IN, QUANT C-reactive protein, quant 9 mg/L 0-10 normal Not Available [facility] ([facility]) [address] [facility], [place], [address], 11/29/2024 12:06:34 04/27/2004/27/2023 elect rocar diogr am No observ ation record ed. [email or web address] In-Office Order Internal Use Only DO Not Attach Compendium DO Not Attach Compendium, Do Not Delete/merge, [id number] 04/27/2023 09:49:11 04/27/20 elect rocar diogr am No observ ation record ed. [email or web address] In-Office Order Internal Use Only DO Not Attach Compendium DO Not Attach Compendium, Do Not Delete/merge, [id number] 04/27/2023 09:39:42 07/13/19 24 07/13/2023 XR, chest No observ ation record ed. [facility] (Imaging) [address] [place], [address], 07/20/2023 08:53:36 08/24/19 24 08/24/2023 US, doppl er, venou s No observ ation record ed. [email or web address] [facility] (Medical Records) [address] [place], [address], 08/25/2023 08:42:01 08/30/19 24 08/30/2023 MAMMO , [...] Lay letter mailed to bert walker WSN: [id number] Orderi ng Physic yves: Laura LICONA, Ian Richard Dictat ed By: Leo Villaseñor MD Dictat ed Date/T sha: 4:38 pm Review ed By: Leo Villaseñor MD Signed By: Leo Villaseñor MD Signed Date/T sha: 4:38 pm Transc ribed By: HEATHER Transc riptio n Date/T sha: 1:13 pm Birads : Bert walker Class: Outpat ient [email or web address] [facility] (Outpt Imaging) [address] [place], [address], 08/31/2023 10:24:05 11/03/19 24 11/02/2023 CT, abdom en + pelvi s, w/ contr ast No observ ation record ed. [facility] [address] [place], [address], 11/03/2023 13:36:14 12/17/19 24 12/17/2023 XR, chest No observ ation record ed. [facility] (Medical Records) [address] [place], [address], 12/17/2023 14:14:49 12/17/19 24 12/17/2023 CT, abdom en + pelvi s, w/o contr ast No observ ation record ed. [email or web address] (Medical Records) [address] [facility], [place], [address], 12/20/2023 08:52:21 08/18/19 25 08/17/2024 Foot and Ankle outco me score No observ ation record ed. [email or web address] Not Available 2024 11:08:15 09/07/19 25 09/06/2024 MAMMO , scree orestes, bilat eral No observ ation record ed. [email or web address] [facility] [address] [place] [address] [place], [address], 09/12/2024 12:55:54 10/25/19 25 10/24/2024 CT, chest , w/ contr ast No observ ation record ed. [email or web address] [facility] [address], [place], [address], 10/25/2024 19:39:59 10/31/19 25 10/27/2024 US, abdom en No observ ation record ed. [email or web address] [facility] [address], [place], [address], 11/14/2024 15:50:04 Result Notes Documentation Provider Name [...] (Negative) Lay letter mailed to patient WSN: [id number] Ordering Physician: Noah Miranda Dictated By: Sandra Villaseñor MD Dictated Date/Time: 08/30/23 4:38 pm Reviewed By: Sandra Villaseñor MD Signed By: Sandra Villaseñor MD Signed Date/Time: 08/30/23 4:38 pm Transcribed By: HEATHER District Administrative Assistant Date/Time: 08/30/23 1:13 pm Birads: [facility] Class[facility] 10:24:05 Problems Name Problem SNOMED Code Status Onset Date Resolution Date Notes Provider Name and Address Organization Details Recorded Time Wheezing symptom 959462275 Completed 12/30/2016 Peyman Healy MD [address], [place], [address], [facility] 7 10:24:02 Acute sinusiti s 21658680 Completed 12/30/2016 Peyman Healy MD [address], [place], [address], [facility] 7 10:23:40 Acute asthma 697199843 Completed 12/30/2016 Peyman Healy MD [address], [place], [address], [facility] 7 10:24:04 Acute allergic reaction 099268104 Completed 12/30/2016 Peyman Healy MD [address], [place], [address], [facility] 7 10:23:59 Fatigue 31793244 Completed 12/30/2016 BRODY Roberts [address], [place], [address], [facility] 2 14:05:52 Irritabl e bowel syndrome 03133495 Active Susan De Oliveira PA-C [address], [place], [address], [facility] 6 15:45:51 Acute pharyngi tis 702287624 Completed 12/30/2016 Peyman Healy MD [address] [address], [place], [address], [facility] 7 10:24:09 Pain in calf 168917780 Completed 12/30/2016 Peyman Healy MD [address] [address], [place], [address], [facility] 7 10:24:07 Synovial cyst of knee 324236880 Completed 12/30/2016 Peyman Healy MD [address] [address], [place], [address], [facility] 7 10:23:54 Lumbar sprain 533603070 Completed 12/30/2016 Peyman Healy MD [address] [address], [place], [address], [facility] 7 10:23:49 Sprain pelvic ligament 927033793 Completed 12/30/2016 Peyman Healy MD [address] [address], [place], [address], [facility] 7 10:23:46 Inflamma tion of sacroili ac joint 35742282 Completed 12/30/2016 Peyman Healy MD [address] [address], [place], [address], [facility] 7 10:24:21 Administ ration of bacteria l and viral vaccine Completed 201001/16/2014 RECORDED 09/20/19 11 1:19PM BY BABITA ANDERSON PA-C, OFFICE VISIT Susan De Oliveira PA-C [address] [facility] [address], [place], [address], [facility] 6 15:45:51 Administ ration of bacteria l and viral vaccine Completed 201002/08/2014 RECORDED 09/20/19 11 1:19PM BY BABITA ANDERSON PA-C, OFFICE VISIT Susan De Oliveira PA-C [address], [place], [address], [facility] 6 15:45:51 Administ ration of bacteria l and viral vaccine Completed 201002/09/2014 RECORDED 09/20/19 11 1:19PM BY BABITA ANDERSON PA-C, OFFICE VISIT Susan De Oliveira PA-C [address], [place], [address], [facility] 6 15:45:51 Acute pharyngi tis 427295146 Completed 201101/16/2014 RECORDED 05/13/20 12 3:41PM BY ALLA BAUM MA, ISAIAHATI ON/ADDEN DUM Peyman Healy MD [address] [facility] [address], [place], [address], [facility] 7 10:24:09 Screenin g for malignan t neoplasm of cervix Completed 201101/16/2014 RECORDED 05/13/20 12 3:41PM BY ALLA BAUM MA, MARY CARMEN ON/ADDEN DUM Susan De Oliveira PA-C [address] [facility] [address], [place], [address], [facility] 6 15:45:51 Epigastr ic pain 63730285 Completed 201101/16/2014 IMPRESSI ON: PROBABLE GASTRITI S D/T RECENT NSAIDS AND PREDNISO NE TAPER, NO LONGER TAKING EITHER; RECORDED 05/13/20 12 3:41PM BY ALLA BAUM MA, MARY CARMEN ON/ADDEN DUM Susan De Oliveira PA-C [address], [place], [address], [facility] 6 15:45:51 Malaise and fatigue [id number] Completed 201101/16/2014 IMPRESSI ON: PER PT REPORT WITH SIG INCREASE D STRESS LEVELS RECENTLY . SEES THERAPIS T WEEKLY, REC INCREASI NG ZOLOFT DOSE. CHANGED FROM 25- 50 MG.; RECORDED 05/13/20 12 3:41PM BY ALLA BAUM MA, MARY CARMEN ON/ADDEN DUM Susan De Oliveira PA-C [address], [place], [address], [facility] 6 15:45:51 Low back pain [id number] Completed 201101/16/2014 RECORDED 05/13/20 12 3:41PM BY ALLA BAUM MA, MARY CARMEN ON/ADDEN DUM BRODY Roberts [address] [facility] [address], [place], [address], [facility] 2 10:36:13 Adult health examinat ion Completed 201101/16/2014 RECORDED 05/13/20 12 3:41PM BY ALLA BAUM MA, MARY CARMEN ON/ADDEN DUM Diana martines MA [facility], [facility] [place] 6 09:23:31 Shoulder joint pain [id number] Completed 201101/16/2014 STORY: R SIDED, X PAST [...] [address], [place], [address], [facility] 6 15:45:51 Disorder of upper respirat ory system Completed 201101/16/2014 RECORDED 05/13/20 12 3:41PM BY ALLA BAUM MA, MARY CARMEN ON/ADDEN DUM Susan De Oliveira PA-C [address], [place], [address], [facility] 6 15:45:51 Acute upper respirat ory infectio n [id number] Completed 201101/16/2014 IMPRESSI ON: 5 DAYS, NO FEVERS AND NO FOCAL SIGNS ON EXAM. LIKELY VIRAL, ADVISED RE REST, FLUIDS AND OTHER SX SUPPORT. CALL FOR WORSENIN G/PRN.; RECORDED 05/13/20 12 3:41PM BY ALLA BAUM MA, MARY CARMEN ON/LUIS RHODESC [address] [facility] [address], [place], [address], [facility] 6 15:45:51 Vernal conjunct ivitis [id number] Completed 201101/16/2014 RECORDED 05/13/20 12 3:41PM BY ALLA BAUM MA, MARY CARMEN ON/LUIS RHODESC [address] [facility] [address] [facility] [address], [place], [address], [facility] 6 15:45:51 Acute pharyngi tis [id number] Completed 201102/08/2014 RECORDED 05/13/20 12 3:41PM BY ALLA BAUM MA, MARY CARMEN ON/LUIS Healy MD [address] [facility] [address] [facility] [address] [facility], [place], [address], [facility] 7 10:24:09 Screenin g for malignan t neoplasm of cervix Completed 201102/08/2014 RECORDED 05/13/20 12 3:41PM BY ALLA BAUM MA, MARY CARMEN ON/LUIS RHODESC [address] [facility] [address] [facility] [address], [place], [address], [facility] 6 15:45:51 Epigastr ic pain [id number] Completed 201102/08/2014 IMPRESSI ON: PROBABLE GASTRITI S D/T RECENT NSAIDS AND PREDNISO NE TAPER, NO LONGER TAKING EITHER; RECORDED 05/13/20 12 3:41PM BY ALLA BAUM MA, ANNOTATI ON/LUIS De Oliveira PA-C [address] [facility] [address] [facility] [address], [place], [address], [facility] 6 15:45:51 Malaise and fatigue [id number] Completed 201102/08/2014 IMPRESSI ON: PER PT REPORT WITH SIG INCREASE D STRESS LEVELS RECENTLY . SEES THERAPIS T WEEKLY, REC INCREASI NG ZOLOFT DOSE. CHANGED FROM 25- 50 MG.; RECORDED 05/13/20 12 3:41PM BY ALLA BAUM MA, ANNOTATI ON/ADDMOHAN De Oliveira PA-C [address] [facility] [address] [facility] [address], [place], [address], [facility] 6 15:45:51 Low back pain [id number] Completed 201102/08/2014 RECORDED 05/13/20 12 3:41PM BY ALLA BAUM MA, ANNOTATI ON/ADDEN DUM BRODY Roberts [address] [facility] [address] [facility] [address], [place], [address], [facility] 2 10:36:13 Shoulder joint pain [id number] Completed 201102/08/2014 STORY: R SIDED, X PAST TWO WEEKS WITHOUT HX OF TRAUMA OR INJURY RECENT OR PAST. WITH ASSOCIAT ED WEAKNESS , MINIMAL RESP TO NSAID. WILL CONTACT [facility] TO SEE IF THEY ARE ABLE TO SEE HER SOON, IF NOT WILL CHECK XRAYS WHILE AWAITING APPT.; RECORDED 05/13/20 12 3:41PM BY ALLA BAUM MA, ANNOTATI ON/LUIS De Oliveira PA-C [address] [facility] [address] [facility] [address], [place], [address], [facility] 6 15:45:51 Disorder of upper respirat ory system Completed 201102/08/2014 RECORDED 05/13/20 12 3:41PM BY ALLA BAUM MA, ANNOTATI ON/LUIS VAZQUEZ Susan De Oliveira TN-C [address], [place], [address], [facility] 6 15:45:51 Acute upper respirat ory infectio n [id number] Completed 201102/08/2014 IMPRESSI ON: 5 DAYS, NO FEVERS AND NO FOCAL SIGNS ON EXAM. LIKELY VIRAL, ADVISED RE REST, FLUIDS AND OTHER SX SUPPORT. CALL FOR WORSENIN G/PRN.; RECORDED 05/13/20 12 3:41PM BY ALLA BAUM MA, MARY CARMEN ON/ADDEN DUM Susanyimi Ruffinden TN-C [address], [place], [address], [facility] 6 15:45:51 Vernal conjunct ivitis [id number] Completed 201102/08/2014 RECORDED 05/13/20 12 3:41PM BY ALLA BAUM MA, ANNOTATI ON/LUIS DUM Susan De Oliveira [facility] [address], [place], [address], [facility] 6 15:45:51 Acute pharyngi tis [id number] Completed 201102/09/2014 RECORDED 05/13/20 12 3:41PM BY ALLA BAUM MA, MARY CARMEN ON/ADDEN GEORGE Healy MD [address], [place], [address], [facility] 7 10:24:09 Screenin g for malignan t neoplasm of cervix Completed 201102/09/2014 RECORDED 05/13/20 12 3:41PM BY ALLA BAUM MA, ANNOTATI ON/LUIS [facility] [address], [place], [address], [facility] 6 15:45:51 Epigastr ic pain [id number] Completed 201102/09/2014 IMPRESSI ON: PROBABLE GASTRITI S D/T RECENT NSAIDS AND PREDNISO NE TAPER, NO LONGER TAKING EITHER; RECORDED 05/13/20 12 3:41PM BY ALLA BAUM MA, MARY CARMEN ON/LUIS De Oliveira PA-C [address] [facility] [address] [facility] [address], [place], [address], [facility] 6 15:45:51 Malaise and fatigue [id number] Completed 201102/09/2014 IMPRESSI ON: PER PT REPORT WITH SIG INCREASE D STRESS LEVELS RECENTLY . SEES THERAPIS T WEEKLY, REC INCREASI NG ZOLOFT DOSE. CHANGED FROM 25- 50 MG.; RECORDED 05/13/20 12 3:41PM BY ALLA BAUM MA, MARY CARMEN ON/ADDMOHAN De Oliveira PA-C [address] [facility] [address] [facility] [address], [place], [address], [facility] 6 15:45:51 Low back pain [id number] Completed 201102/09/2014 RECORDED 05/13/20 12 3:41PM BY ALLA BAUM MA, MARY CARMEN ON/ADDEN DUM BRODY Roberts [address] [facility] [address], [place], [address], [facility] 2 10:36:13 Shoulder joint pain [id number] Completed 201102/09/2014 STORY: R SIDED, X PAST TWO WEEKS WITHOUT HX OF TRAUMA OR INJURY RECENT OR PAST. WITH ASSOCIAT ED WEAKNESS , MINIMAL RESP TO NSAID. WILL CONTACT [facility] TO SEE IF THEY ARE ABLE TO SEE HER SOON, IF NOT WILL CHECK XRAYS WHILE AWAITING APPT.; RECORDED 05/13/20 12 3:41PM BY ALLA BAUM MA, MARY CARMEN ON/LUIS De Oliveira PA-C [address] [facility] [address] [facility] [address], [place], [address], [facility] 6 15:45:51 Disorder of upper respirat ory system Completed 201102/09/2014 RECORDED 05/13/20 12 3:41PM BY ALLA BAUM MA, MARY CARMEN ON/ADDEN DUM Susan De Oliveira PA-C [address], [place], [address], [facility] 6 15:45:51 Acute upper respirat ory infectio n [id number] Completed 201102/09/2014 IMPRESSI ON: 5 DAYS, NO FEVERS AND NO FOCAL SIGNS ON EXAM. LIKELY VIRAL, ADVISED RE REST, FLUIDS AND OTHER SX SUPPORT. CALL FOR WORSENIN G/PRN.; RECORDED 05/13/20 12 3:41PM BY ALLA BAUM MA, MARY CARMEN ON/ADDEN DUM Susan De Oliveira PA-C [address], [place], [address], [facility] 6 15:45:51 Vernal conjunct ivitis [id number] Completed 201102/09/2014 RECORDED 05/13/20 12 3:41PM BY ALLA BAUM MA, MARY CARMEN ON/ADDEN DUM Susan De Oliveira PA-C [address], [place], [address], [facility] 6 15:45:51 Bronchit is [id number] Completed 201201/16/2014 RECORDED 07/28/19 13 1:45AM BY ALLA BAUM MA, MARY CARMEN ON/ADDEN DUM Susan De Oliveira PA-C [address], [place], [address], [facility] 6 15:45:51 Bronchit is [id number] Completed 201202/08/2014 RECORDED 07/28/19 13 1:45AM BY ALLA BAUM MA, MARY CARMEN ON/ADDEN DUM Susan De Oliveira PA-C [address], [place], [address], [facility] 6 15:45:51 Bronchit is [id number] Completed 201202/09/2014 RECORDED 07/28/19 13 1:45AM BY ALLA BAUM MA, ISAIAHATI ON/ADDEN DUM Susan De Oliveira PA-C [address] [facility] [address], [place], [address], [facility] 6 15:45:51 Follow-u p encounte r Completed 201201/16/2014 RECORDED 08/31/19 13 1:39PM BY RHONDA PETERSEN MA, MARY CARMEN ON/ADDEN DUM Susan De Oliveira PA-C [address] [facility] [address], [place], [address], [facility] 6 15:45:51 Disorder of rotator cuff Completed 201201/16/2014 IMPRESSI ON: SUSPECT SUPRASPI NATUS TENDON TEAR. SHE SEES [employer]OY[employer] ON TU. FURTHER F/U THROUGH [employer]. SHE WILL TAKE NSAID PRN AND ICE. MAY RETURN TO WORK.; RECORDED 08/31/19 13 1:39PM BY RHONDA PETERSEN MA, MARY CARMEN ON/ADDEN DUM Susan De Oliveira PA-C [address] [facility] [address], [place], [address], [facility] 6 15:45:51 Follow-u p encounte r Completed 201202/08/2014 RECORDED 08/31/19 13 1:39PM BY RHONDA PETERSEN MA, MARY CARMEN ON/ADDEN DUM Susan De Oliveira PA-C [address] [facility] [address], [place], [address], [facility] 6 15:45:51 Disorder of rotator cuff Completed 201202/08/2014 IMPRESSI ON: SUSPECT SUPRASPI NATUS TENDON TEAR. 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 FURTHER F/U THROUGH [employer]. SHE WILL TAKE NSAID PRN AND ICE. MAY RETURN TO WORK.; RECORDED 08/31/19 13 1:39PM BY RHONDA PETERSEN MA, MARY CARMEN ON/ADDEN DUM Susan RHODES [address] [facility] [address], [place], [address], [facility] 6 15:45:51 Follow-u p encounte r Completed 201202/09/2014 RECORDED 08/31/19 13 1:39PM BY RHONDA PETERSEN MA, MARY CARMEN ON/ADDEN DUM Susananita LICONA-C [address] [facility] [address], [place], [address], [facility] 6 15:45:51 Disorder of rotator cuff Completed 201202/09/2014 IMPRESSI ON: SUSPECT SUPRASPI NATUS TENDON TEAR. 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 FURTHER F/U THROUGH [employer]/[facility]. SHE WILL TAKE NSAID PRN AND ICE. MAY RETURN TO WORK.; RECORDED 08/31/19 13 1:39PM BY RHONDA PETERSEN MA, MARY CARMEN ON/ADDEN DUM Susanyimi LICONA- [address] [facility] [address], [place], [address], [facility] 6 15:45:51 Adult health examinat ion Completed 201303/18/2016 Diana martines [place] [facility], [facility] 6 09:23:31 Anxiety state [id number] Completed 201312/30/2016 Peyman Healy MD [address] [facility] [address], [place], [address], [facility] 7 10:23:44 Backache [id number] Completed 201301/16/2014 IMPRESSI ON: > 1 WEEK OF WORSENIN G BACK PAIN, UNABLE TO STAND UPRIGHT, LEGS GIVING OUT. PAIN NOW RADIATIN G INTO BUTTOCKS AND ANTERIOR THIGHS. MRI REVEALED SCHMORL' S NODES, OTHERWIS E NEG. TO PSS FOR FURTHER EVAL.; RECORDED 10/05/19 14 2:28PM BY DIANA NUNEZ MA, ANNOTATI ON/ADDEN DUM Susan [facility] [address], [place], [address], [facility] 6 15:45:51 Acute bronchit is [id number] Completed 201301/16/2014 IMPRESSI ON: LIKELY MOSTLY VIRAL SXS, HOWEVER DUE TO SMOKING STATUS AND RISK OF BACTERIA L BRONCHIT IS OR PNA TO TX WITH ABX. REST, FLUIDS, COUGH MED AT NIGHT PRN. CALL FOR WORSENIN G/PRN.; RECORDED 10/05/19 14 2:26PM BY DIANA NUNEZ MA, ANNOTCHARLENE ON/ADDEN DUM [facility] [address] [facility] [address], [facility] [place], [address], [facility] 6 15:45:51 Cough [id number] Completed 201301/16/2014 IMPRESSI ON: POSSIBLE PNEUMONI A WITH THE FOCAL RALES. IF SHE DOES NOT IMPROVE WITH THE ABX SHE WILL GET A CXR.; RECORDED 10/05/19 14 2:26PM BY DIANA NUNEZ MA, MARY CARMEN ON/ADD DUM BRODY Roebrts [address] [facility] [address] [facility] [address], [place], [address], [facility] 4 11:48:33 Tobacco dependen ce syndrome 05306959 Active 2013 GABRIELA Coburn, [facility] 6 09:24:07 Tobacco dependen ce syndrome 37909219 Completed 201301/16/2014 RECORDED 10/05/19 14 2:27PM BY DIANA NUNEZ MA, ANNOTATI ON/ADD DUM GABRIELA Coburn, [facility] 6 09:24:07 Diarrhea [id number] Completed 201301/16/2014 RECORDED 10/05/19 14 2:25PM BY DIANA NUNEZ MA, ANNOTATI ON/ADDEN DUM uSsan De Oliveira [facility] [address], [place], [address], [facility] 6 15:45:51 Dysuria [id number] Completed 201312/30/2016 RECORDED 10/05/19 14 2:30PM BY DIANA NUNEZ MA, OFFICE VISIT Peyman Healy MD [address] [facility] [address], [place], [address], [facility] 7 10:24:17 Elevated blood-pr essure reading without diagnosi s of hyperten margaret 318705205 Active 2013 Diana martines [place] null, [facility] 7 11:51:58 Gastroes ophageal reflux disease 394461931 Active 2013 GABRIELA Coburn, [facility] 6 09:23:24 Headache 63519789 Completed 201301/16/2014 RECORDED 10/05/19 14 2:28PM BY DIANA NUNEZ MA, ANNOTATI ON/ADDEN DUM Susan De Oliveira PA-C [address] [facility] [address] [facility] [address], [place], [address], [facility] 6 15:45:51 Hyperlip idemia 47237152 Completed 201312/30/2016 BRODY Roberts [address] [facility] [address], [place], [address], [facility] 2 14:05:28 Acute lymphade nitis 48374328 Completed 201301/16/2014 IMPRESSI ON: PT VERY ANXIOUS [...] NUNEZ MA, MARY CARMEN ON/ADDEN DUM [facility]imi [facility] [address] [facility] [address] [facility] [address], [place], [address], [facility] 6 15:45:51 Psoriasi s [id number] Active 2013 GABRIELA Coburn, [facility] 6 09:24:04 Disorder of bursa of shoulder region 37121091 Active 2013 GABRIELA Coburn, [facility] 6 09:24:00 Temporom andibula r joint disorder 24815414 Active 2013 GABRIELA Coburn, [facility] 7 11:51:54 Candidal vulvovag initis 15303849 Completed 201301/16/2014 IMPRESSI ON: TENDS TO GET YEAST INFECTIO NS WITH ABX; RECORDED 10/05/19 14 2:26PM BY DIANA NUNEZ MA, MARY CARMEN ON/ADDEN DUM [facility] [address] [facility] [address] [facility] [address], [place], [address], [facility] 6 15:45:51 Backache [id number] Completed 201302/08/2014 IMPRESSI ON: > 1 WEEK OF WORSENIN G BACK PAIN, UNABLE TO STAND UPRIGHT, LEGS GIVING OUT. PAIN NOW RADIATIN G INTO BUTTOCKS AND ANTERIOR THIGHS. MRI REVEALED SCHMORL' S NODES, OTHERWIS E NEG. TO PSS FOR FURTHER EVAL.; RECORDED 10/05/19 14 2:28PM BY DIANA NUNEZ MA, ANNOTCHARLENE ON/ADDEN DUM [facility] [address] [facility] [address], [place], [address], [facility] 6 15:45:51 Acute bronchit is [id number] Completed 201302/08/2014 IMPRESSI ON: LIKELY MOSTLY VIRAL SXS, HOWEVER DUE TO SMOKING STATUS AND RISK OF BACTERIA L BRONCHIT IS OR PNA TO TX WITH ABX. REST, FLUIDS, COUGH MED AT NIGHT PRN. CALL FOR WORSENIN G/PRN.; RECORDED 10/05/19 14 2:26PM BY DIANA NUNEZ MA, MARY CARMEN ON/ADDEN GEORGE LICONA-C [address], [place], [address], [facility] 6 15:45:51 Cough [id number] Completed 201302/08/2014 IMPRESSI ON: PRODUCTI VE COUGH X 10D, + TOBACCO, WILL TX, ADVISE TO STOP SMOKING, RTC IF PERSISTE NT OR WORSENIN G SYMPTOMS .; RECORDED 10/05/19 14 2:26PM BY DIANA NUNEZ MA, MARY CARMEN ON/ADDEN BRODY Ferro [address], [place], [address], [facility] 4 11:48:33 Diarrhea [id number] Completed 201302/08/2014 RECORDED 10/05/19 14 2:25PM BY DIANA NUNEZ MA, ANNOTATI ON/LUIS RHODESC [address], [place], [address], [facility] 6 15:45:51 Headache 17951730 Completed 201302/08/2014 RECORDED 10/05/19 14 2:28PM BY DIANA NUNEZ MA, MARY CARMEN ON/ADDEN GEORGE LICONA-C [address], [place], [address], [facility] 6 15:45:51 Acute lymphade nitis 27184807 Completed 201302/08/2014 IMPRESSI ON: PT VERY ANXIOUS [...] [address], [place], [address], [facility] 6 15:45:51 Candidal vulvovag initis 48433018 Completed 201302/08/2014 IMPRESSI ON: TENDS TO GET YEAST INFECTIO NS WITH ABX; RECORDED 10/05/19 14 2:26PM BY DIANA NUNEZ MA, MARY CARMEN ON/ADDEN DUM Susan LICONA-C [address], [place], [address], [facility] 6 15:45:51 Backache [id number] Completed 201302/09/2014 IMPRESSI ON: > 1 WEEK OF WORSENIN G BACK PAIN, UNABLE TO STAND UPRIGHT, LEGS GIVING OUT. PAIN NOW RADIATIN G INTO BUTTOCKS AND ANTERIOR THIGHS. MRI REVEALED SCHMORL' S NODES, OTHERWIS E NEG. TO PSS FOR FURTHER EVAL.; RECORDED 10/05/19 14 2:28PM BY DIANA NUNEZ MA, MARY CARMEN ON/ADDEN DUM Susan LICONA-C [address], [place], [address], [facility] 6 15:45:51 Acute bronchit is [id number] Completed 201302/09/2014 IMPRESSI ON: LIKELY MOSTLY VIRAL SXS, HOWEVER DUE TO SMOKING STATUS AND RISK OF BACTERIA L BRONCHIT IS OR PNA TO TX WITH ABX. REST, FLUIDS, COUGH MED AT NIGHT PRN. CALL FOR WORSENIN G/PRN.; RECORDED 10/05/19 14 2:26PM BY DIANA NUNEZ MA, MARY CARMEN ON/ADDEN GEORGE LICONAC [address] [facility] [address] [facility] [address], [place], [address], [facility] 6 15:45:51 Cough [id number] Completed 201302/09/2014 IMPRESSI ON: PRODUCTI VE COUGH X 10D, + TOBACCO, WILL TX, ADVISE TO STOP SMOKING, RTC IF PERSISTE NT OR WORSENIN G SYMPTOMS .; RECORDED 10/05/19 14 2:26PM BY DIANA NUNEZ MA, MARY CARMEN ON/ADDEN DUM BRODY Roberts [address] [facility] [address], [place], [address], [facility] 4 11:48:33 Diarrhea [id number] Completed 201302/09/2014 RECORDED 10/05/19 14 2:25PM BY DIANA NUNEZ MA, MARY CARMEN ON/LUIS LICONA-C [address] [facility] [address], [place], [address], [facility] 6 15:45:51 Headache 93691835 Completed 201302/09/2014 RECORDED 10/05/19 14 2:28PM BY DIANA NUNEZ MA, MARY CARMEN ON/ADDEN DUM Susan LICONAC [address] [facility] [address] [facility] [address], [place], [address], [facility] 6 15:45:51 Acute lymphade nitis 62516151 Completed 201302/09/2014 IMPRESSI ON: PT VERY ANXIOUS [...] [address], [place], [address], [facility] 6 15:45:51 Candidal vulvovag initis 10363627 Completed 201302/09/2014 IMPRESSI ON: TENDS TO GET YEAST INFECTIO NS WITH ABX; RECORDED 10/05/19 14 2:26PM BY DIANA NUNEZ MA, ANNOTATI ON/ADDMOHAN De Oliveira PA-C [address], [place], [address], [facility] 6 15:45:51 Glucose level outside referenc e range 304553429 Completed 201312/30/2016 Peyman Healy MD [address], [place], [address], [facility] 7 10:23:38 Anemia of pregnanc y 57619978 Completed 201512/30/2016 Peyman Healy MD [address], [place], [address], [facility] 7 10:23:35 Generali zed anxiety disorder 45583021 Active 2016 Diana martines [place] null, [facility] [place] 7 11:53:56 Primary biliary cholangi tis 33243649 Active 2019 BRODY Roberts [address], [place], [address], [facility] 0 10:57:26 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 no other organs. nephrect sandoval 09/2019 Removal Reason: radical nephrect sandoval 09/2019 Lynda ortega [facility] 3 15:23:27 Neoplasm of left kidney [id number] 012698 Completed 202004/27/2023 Removal Reason: radical nephrect sandoval 09/2019 Lynda Papo ortega [facility] 3 15:23:00 Low back pain 955192644 Active 2021 RECORDED 05/13/20 12 3:41PM BY ALLA BAUM MA, ANNOTATI ON/ADDEN DUM Noah Sanchez, [facility] [address] [facility] [address], [place], [address], [facility] 2 10:36:13 Plantar fasciiti s of right foot 05676636627 792233 Active 2021 Noah Sanchez, [facility] [address] [facility] [address], [place], [address], [facility] 2 13:53:56 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 89252662602 272848 Active 2021 Noah Sanchez, [facility] [address] [facility] [address], [place], [address], [facility] 2 13:54:13 Hyperlip idemia 48684857 Active 2021 Noah Sanchez, [facility] [address] [facility] [address], [place], [address], [facility] 2 14:05:27 Fatigue 00980088 Active 2021 Noah Sanchez [facility] [address] [facility] [address] [facility] [address], [place], [address], [facility] 2 14:05:52 Impaired fasting glycemia 655314990 Active 2021 Noah Sanchez, [facility] [address] [facility] [address] [facility] [address], [place], [address], [facility] 2 14:05:59 Pain of left hip joint 12477777206 9100 Active 2021 Noah Sanchez, [facility] [address] [facility] [address], [place], [address], [facility] 2 11:29:28 Obesity 914486036 Active 2022 Lynda Barros [facility] 3 15:21:38 Cough 11705651 Active 2023 IMPRESSI ON: PRODUCTI VE COUGH X 10D, + TOBACCO, WILL TX, ADVISE TO STOP SMOKING, RTC IF PERSISTE NT OR WORSENIN G SYMPTOMS .; RECORDED 10/05/19 14 2:26PM BY DIANA NUNEZ MA, ANNOTATI ON/ADDEN DUM Noah Sanchez, [facility] [address] [facility] [address], [place], [address], [facility] 4 11:48:33 COVID-19 224032953 Active 2023 Noah Sanchez, [facility] [address], [place], [address], [facility] 4 12:11:32 Fever [id number] Active 2023 Noah Sanchez, [facility] [address], [place], [address], [facility] 4 12:11:36 Vitamin D deficien cy [id number] Active 2023 Noah Sanchez, [facility] [address], [place], [address], [facility] 4 15:27:42 Acute right otitis media [id number] Active 2024 BRODY Roberts [address], [place], [address], [facility] 11:21:54 Problem Notes None recorded. Procedures Surgical History Date Name Laterality Status Provider Name and Address Organization Details Recorded Time 09/07/19 25 Most Recent Mammogram completed Emili Martinez [facility] 09/12/2024 12:55:45 07/14/19 23 Mammogram Screening completed Danielle Rodriguez [facility] 07/14/2022 16:24:36 05/05/20 22 fasciotomy of foot completed BRODY Roberts [address] [facility] [address], [place], [address], [facility] 04/27/2023 09:18:39 09/07/19 20 radical nephrectomy completed Greta Glasgow [facility] 09/11/2019 15:28:04 09/07/19 20 Cancer Surgery completed Sherlyn Brown MA [facility] 03/27/2021 08:40:34 07/14/19 17 Date of Last Colonoscopy completed Diana slaughter MA [facility] 12/30/2016 10:13:20 07/14/19 17 Colonoscopy completed BRODY Roberts [address] [facility] [address], [place], [address], [facility] 02/14/2019 15:53:00 02/11/20 07 delivery completed Diana slaughter MA [facility] 02/14/2019 15:32:01 01/14/20 04 Caesarean Section completed Diana slaughter MA [facility] 02/14/2019 15:31:51 09/03/19 00 Tonsillectomy completed Sherlyn Brown MA [facility] 03/27/2021 08:40:34 Tubal Ligation completed Diana slaughter MA [facility] 11/21/2014 14:01:10 Tonsillectomy completed Sherlyn Brown MA [facility] 03/27/2021 08:40:34 Imaging Results None recorded. Procedure [...] in the [facility] 12:49:17 2838 Keflex medicatio n itching Not available Not available 01/16/20142013 28603 7 RxNorm [facility] 5 12:49:17 2839 Product containin g penicilli n (product) medicatio n Not available Not available Not available 01/16/20142013 55160 8001 SNOMED REACT ION: AMOX, CAUSE S YEAST INFEC TIONS ; COMME NT: RECOR DED 10/04 2:30P M BY SRINIVAS HUERTA MA, OFFIC E VISIT ; Peyman Healy MD [address], [place], [address], [facility] 5 16:56:28 31194 Non-stero idal anti-infl ammatory agent (substanc e) medicatio n other moderate low 04/21/2022 05031 5008 SNOMED 1 BRODY Schrader [address], [place], [address], [facility] 2 13:55:13 Medications Name Sig Start Date [...] RECORDED 02/23/20 13 11:00AM BY BABITA ANDERSON, MEAGANC, MEDICATI ON AUTO-PACO CTIVATIO N;TAKE TWO TABS [...] 11/04 completed RECORDED 11/11/19 12 10:28AM BY BBAITA ANDERSON PA-C, MEDICATI ON AUTO-PACO CTIVATIO N; Not Available Not Available Not Available levofloxa uriel 500 mg tablet DAILY 09/07 completed RECORDED 02/08/20 13 10:54AM BY MONAE ARGUETA, MEDICATI ON AUTO-PACO CTIVATIO N; Not Available Not Available Not Available hydroxyzi ne HCl 10 mg tablet TAKE 1 TABLET EVERY EVENING AND INCREASE TO 2 TABLETS EVERY EVENING IF TOLERATE D active Not Available Not Available No t Available Citrucel (sucrose) oral powder 1 scoop [...] completed Not Available Not Available Not Available cholestyr amine (with sugar) 4 gram powder for susp in a packet TAKE 1 PACKET BY MOUTH 2 TIMES A DAY WITH MEALS. DISSOLVE IN 8 OZ OF LIQUID AND DRINK BEFORE A MEAL active Not Available Not Available No t Available Guiatuss EVERY 4 HOURS NEEDED 02/14 [...] Updated DateTime 07/06/2024 110/60 mm[Hg] BRODY Roberts [address] [facility], [place], [address], [facility] 07/06/2024 11:27:04 Date Recorded Body height Body mass index (BMI) Body weight Heart rate Oxygen saturation Oxygen saturation in Arterial blood by Pulse oximetry Body temperature Systolic And Diastolic Provider Name and Address Organization Details Last Updated DateTime 5 158.75 cm 33.7 kg/m2 00936.7 7 g 62 /min 98 % 98 % 99.1 [degF] 158/92 mm[Hg] Maru Sewell MA [facility] 5 10:49:03 Date Recorded Body height Body mass index (BMI) Body weight Body temperature Oxygen saturation Oxygen saturation in Arterial blood by Pulse oximetry Heart rate Systolic And Diastolic Provider Name and Address Organization Details Last Updated DateTime 4 158.75 cm 34.6 kg/m2 06460.7 4 g 98.4 [degF] 98 % 98 % 85 /min 127/85 mm[Hg] Sydnie Flores MA [facility] 4 11:28:21 Date Recorded Body height Body mass index (BMI) Body weight Heart rate Oxygen saturation Oxygen saturation in Arterial blood by Pulse oximetry Body temperature Systolic And Diastolic Provider Name and Address Organization Details Last Updated DateTime 5 158.75 cm 35.3 kg/m2 09105.1 g 75 /min 99 % 99 % 98.7 [degF] 157/85 mm[Hg] Maru Sewell [facility] 5 09:35:02 Date Recorded Systolic And Diastolic Provider Name and Address Organization Details Last Updated DateTime 04/27/2023 136/80 mm[Hg] BRODY Roberts [address] [facility], [place], [address], [facility] 04/27/2023 09:27:54 Date Recorded Body height Body mass index (BMI) Body weight Heart rate Oxygen saturation Oxygen saturation in Arterial blood by Pulse oximetry Body temperature Systolic And Diastolic Provider Name and Address Organization Details Last Updated DateTime 3 158.75 cm 34 kg/m2 59085.9 6 g 74 /min 98 % 98 % 98.5 [degF] 152/91 mm[Hg] Maru Sewell MA [facility] 3 08:55:13 Date Recorded Systolic And Diastolic Provider Name and Address Organization Details Last Updated DateTime 05/02/2024 120/66 mm[Hg] Noah Sanchez, [facility] [address] [facility] [address], [place], [address], [facility] 05/02/2024 16:01:22 Date Recorded Body height Body mass index (BMI) Body weight Heart rate Oxygen saturation Oxygen saturation in Arterial blood by Pulse oximetry Body temperature Systolic And Diastolic Provider Name and Address Organization Details Last Updated DateTime 4 158.75 cm 34 kg/m2 43299.9 6 g 72 /min 99 % 99 % 98.2 [degF] 147/79 mm[Hg] Maru Sewell MA [facility] 4 15:21:08 Social History Question Answer Notes LastModified by Organizat ion Details LastModified Time Tobacco Smoking Status Former Smoker pt quit 09/2019 GABRIELA Waller, [facility] 03/26/2020 10:39:09 Do You Have An Advance [...] 04/24/2015 When Did You Quit Smoking? 1-5yearssin rockyastmimi leigh [email or web address] Information not available 03/27/2021 Live Alone Or [...] Health Care Provider Or Emergency Responder? Yes [email or web address] Information not available 03/26/2020 To The Best Of Your Knowledge Have You Been In Close Proximity To Any Individual Who Tested Positive For COVID-19? No [email or web address] Information not available 03/26/2020 Have You Recently Traveled To A COVID-19 High Risk Area Or Gathering In The Last 10 Days? No [email or web address] Information not available 07/23/2020 What Was The Date Of Your Most Recent Tobacco Screening? 05/02/2024 [email or web address] Information not available 05/02/2024 How Many Children Do You Have? 2 Gabriel And Jas Information not available 12/30/2016 Do You Use Your Seat Belt Or Car Seat Routinely? Yes [email or web address] Information not available 03/27/2021 Seat Belts Used [...] How Much Tobacco Do You Smoke? No [email or web address] Information not available 03/26/2020 Do You Use [...] available 10:40:59 Father Malignant neoplasm of lung [email or web address] Not available 03/27 08:40:16 Father Kidney disease [email or web address] Not available 03/27 08:40:16 Mother Malignant neoplasm of uterus molar pregna ncy- hyster ectomy Not available 04/23/2022 10:40:59 Mother Opioid dependence Not available 04/23 10:40:59 Mother Substance abuse [email or web address] Not available 03/27 08:40:16 Mother Seizure disorder [email or web address] Not available 03/27 08:40:16 Mother Osteoporosis Not vasile ilable 03/27/2021 08:40:16 Mother Disorder of thyroid gland Not available 2021 10:40:59 Brother Essential hypertension 45 possib ly Not available 04/23/2022 10:40:59 Brother Harmful pattern of use of alcohol [email or web address] Not available 2017 15:39:14 Brother Depressive disorder [email or web address] Not available 03/27 08:40:16 Maternal Grandfather Opioid dependence Not available 04/23 10:40:59 Unspecified Relation Substance abuse [email or web address] Not available 03/27 08:40:16 Son Allergy Not available 1 10:40:59 Medical History Condition Response Coronary Artery Disease N Gout N Other N Blood Diseases N Kidney Stones N Hyperthyroidism N Breast Cancer N mrsa exposure N Depression N COPD N Lung Disease N Hypothyroidism N Defects [...] split virus, trivalent, preservative 6 completed [facility]/2016 10:11:22 Influenza, split virus, quadrivalent, preservative 8 completed [facility] 09/02/2018 10:03:42 Influenza, split virus, quadrivalent, preservative 9 completed [facility] 06/14/2019 09:27:56 COVID-19, mRNA, LNP-S, PF, 100 mcg/0.5mL dose or 50 mcg/0.25mL dose 0 completed [facility] 09/12/2021 10:18:38 Influenza, split virus, quadrivalent, PF 1 completed [facility] 09/12/2021 10:18:38 COVID-19, mRNA, LNP-S, PF, 100 mcg/0.5mL dose or 50 mcg/0.25mL dose 1 completed [facility] 09/12/2021 10:18:38 Influenza, split virus, quadrivalent, PF 7 completed [facility] 09/12/2021 10:18:39 Influenza, split virus, trivalent, preservative 5 completed [facility] 12/24/2021 10:23:35 Influenza, split virus, quadrivalent, PF 3 completed [facility], [facility] 07/13/2023 11:16:35 Influenza, split virus, trivalent, PF 4 completed Not Available [facility] 11/28/2024 09:30:33 Tdap 1 completed Not Available [facility] 01/16/2014 13:38:10 Influenza, split virus, quadrivalent, PF 0 completed [facility] Waller, [facility] 03/26/2020 10:48:58 Tdap 1 completed [facility] Carrizales, [facility] 03/27/2021 10:06:49 Influenza, split virus, quadrivalent, PF 2 completed Noah Sanchez [facility] [address], [address], [facility] 04/23/2022 11:29:33 Past Encounters Encounter ID Performer Location Encounter Start Date Encounter Closed Date Diagnosis/Indication Diagnosis SNOMED-CT Code Diagnosis ICD10 Code Diagnosis IMO Codes Diagnosis Note [id number] 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 [address] [facility] [place] [address] 05/07/2009 00:00:00 [id number] 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 [address] [facility] [place] [address] 04/03/2010 00:00:00 [id number] 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 [address] [facility] [place] [address] 04/30/2010 00:00:00 [id number] 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 [address] [facility] [place] [address] 08/22/2010 00:00:00 [id number] 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 [address] [facility] [place] [address] 09/19/2010 00:00:00 [id number] 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 [address] [facility] [place] [address] 11/17/2010 00:00:00 [id number] 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 [address] [facility] [place] [address] 06/02/2011 00:00:00 [id number] 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 [address] [place] [address] 09/15/2011 00:00:00 [id number] 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 [address] [facility] [address] [place] [address] 10/29/2011 00:00:00 [id number] 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 [address] [facility] [address] [place] [address] 11/11/2011 00:00:00 [id number] 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 [address] [facility] [place] [address] 05/13/2012 00:00:00 [id number] 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 [address] [facility] [place] [address] 08/31/2012 00:00:00 [id number] 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 [address] [facility] [place] [address] 02/07/2013 00:00:00 [id number] 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 [address] [facility] [place] [address] 04/12/2013 00:00:00 [id number] 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 [address] [facility] [place] [address] 08/30/2013 00:00:00 [id number] 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 [address] [facility] [place] [address] 10/04/2013 00:00:00 [id number] Peyman Healy MD Main Office [address] [place] [address] 03/27/2014 09:46:56 03/27/2014 10:49:27 Wheezing symptom 677032527 Tobacco de pendence syndrome 89508164 [id number] Peyman Healy MD Main Office [address] [place] [address] 09/14/2014 14:46:39 09/14/2014 15:17:09 Acute sinusitis 11302592 Tobacco de pendence syndrome 34676964 [id number] Peyman Healy MD Main Office [address] [address] [place] [address] 10/18/2014 12:40:42 10/18/2014 13:27:05 Acute asthma 591334915 Acute zhao rgic reaction 659804687 Tobacco de pendence syndrome 18203885 [id number] Peyman Healy MD Main Office [address] [address] [place] [address] 11/21/2014 13:28:44 11/21/2014 14:47:30 Adult health examination 651418598 Hyperlipidemia 82509299 Fatigue 78299115 Tobacco de pendence syndrome 29070717 Irritable bowel syndrome 69530790 Screening for malignant neoplasm of breast 156035272 Screening for malignant neoplasm of cervix 009918900 Body mass index 25-29 - overweight 562245712 [id number] Livan Fatima MD Main Office [address] [address] [place] [address] 12/29/2014 09:25:24 12/29/2014 09:50:58 Acute pharyngitis 115030661 probable viral infection; no role for abx. Continue with symptomati c treatment. [id number] Peyman Healy MD Main Office [address] [address] [place] [address] 04/24/2015 13:09:18 04/24/2015 15:20:58 Acute sinusitis 92874358 J01.90 Anxiety state 091146332 F41.1 [id number] Peyman Healy MD Main Office [address] [address] [place] [address] 06/05/2015 14:02:13 06/05/2015 15:35:44 Anxiety state 688029355 F41.1 Pain in calf 034814137 M 79.669 [id number] Susan De Oliveira PA-C Main Office [address] [address] [place] [address] 07/23/2015 10:47:52 07/23/2015 12:10:04 Lumbar sprain 988972627 S33.9XXA L. lumbar sparin acute. Can not tolerate NSAIDs. Will start Prednisone taper , Flexeril at night only and Tramadil for pain. Moist heat applicatio ns, gently back stretches. Stay back from work for few days. Sprain pel elana ligament 889724195 S33.9XXA [id number] Peyman Healy MD Main Office [address] [address] [place] [address] 12/25/2015 13:17:42 12/25/2015 14:58:37 Anxiety state 819986362 F41.1 Tobacco de pendence syndrome 19005005 F17.290 Reviewed motivation s for smoking cessation. Advised about benefits of stopping smoking. Hyperlipidemia 81960860 E78.5 Adult heal th examination 092052282 Z00.00 Fatigue 09929189 R53.83 Body mass index 25-29 - overweight 487481559 Z68.29 Inflammati on of sacroiliac joint 52215750 M46.1 [id number] Peyman Healy MD Main Office [address] [address] [place] [address] 03/18/2016 09:15:07 03/18/2016 10:32:41 Irritable bowel syndrome 58226654 K58.9 Diarrhea 34060573 R19.7 Knee pain 69933533 M25.5 61 Medial joint line tenderness with positive Malathi test. Rule out meniscus injury [id number] Susan De Oliveira PA-C Main Office [address] [address] [place] [address] 08/07/2016 10:37:00 08/07/2016 11:16:42 Upper respiratory infection 77326227 J06.9 PT. will use Mucinex DM or D BID for congestion and cough , nasal saline solution BID and FLonase she has at home qd. Rest and fluids. PT. will call office next week if worsening of symptoms , fever, colored secretions or facial pain. [id number] Peyman Healy MD Main Office [address] [address] [place] [address] 12/30/2016 10:04:42 12/30/2016 11:06:58 Adult health examination 554016410 Z00.00 Tobacco de pendence syndrome 71992989 F17.290 Reviewed motivation s for smoking cessation. Advised about benefits of stopping smoking. Elevated blood-pressure reading without diagnosis of hypertension 602240284 R03.0 Had elevated BP under propafol for colonoscop y Anxiety state 219453890 F41.1 STable on medication Hyperlipidemia 99356861 E78.5 Fatigue 36629072 R53.83 Hyperhidrosis 763288910 R61 Nasal vestibulitis 50071 000 J34.89 Body mass index 25-29 - overweight 245149115 E66.3 Z68.25 [id number] Allan De Oliveira PA-C Main Office [address] [facility] [address] [place] [address] 09/15/2017 13:21:04 09/15/2017 14:12:54 Acute sinusitis 12099241 J01.90 pt requested diflucan - rec add probiotic supp qd soniya for her IBS c/o - hopefully not require levsin as much. also advised pt could use bactroban in nares to help nasal lining sxs as well for a few days [id number] Peyman Healy MD Main Office [address] [facility] [address] [place] [address] 02/11/2018 15:00:11 02/11/2018 16:22:57 Adult health examination 407071423 Z00.00 Tobacco de pendence syndrome 41450283 F17.290 Reviewed motivation s for smoking cessation. Advised about benefits of stopping smoking. Generalize d anxiety disorder 33168895 F41.1 Irritable bowel syndrome 08624070 K58.9 Body mass index 25-29 - overweight 985314333 E66.3 Z68.25 Hyperlipidemia 63897297 E78.5 Fatigue 69446630 R53.83 Greater tr ochanteric pain syndrome 3333291 M70.62 Neck pain 47095272 M54.2 Inflammati on of sacroiliac joint 88190705 M46.1 [id number] Allan De Oliveira PA-C Main Office [address] [facility] [address] [place] [address] 04/19/2018 10:32:33 04/19/2018 12:00:32 Needs influenza immunization 694447279 Z23 had flu shot last week -- flu shot NOT given today Cough 01082941 R05 suspect early pna - will check cxr and give abx proactivel y Infective pneumonia 3123 00765 J18.9 rec probiotics while on abx, also rec proair and peace -- see below [id number] Sim Garcia MD Main Office [address] [facility] [address] [place] [address] 09/02/2018 09:42:20 09/02/2018 10:35:38 Acute pharyngitis 283698544 J02.9 Based on risk score and recent exposure will cover for strep. D/C if culture is negative. Supportive /symptomat ic tx advised in meantime. Call inb/worse or if new symptoms develop. [id number] Livan Fatima MD Main Office [address] [facility] [address] [place] [address] 02/14/2019 15:20:06 02/14/2019 16:13:10 Adult health examination 809582535 Z00.00 HM UTD, will check blood work. Tobacco de pendence syndrome 72223227 F17.290 Reviewed present motivation s for smoking cessation. Patient reports that being ready to attempt smoking cessation. Discussed options for support. 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 Call if sx persist, regular TC sent out Eustachian tube disorder 66378077 H69.93 gargles, hydration try flonase once a day, call if ear pain persists; no evidence of otitis media today. [id number] Livan Fatima MD Main Office [address] [address] [place] [address] 03/26/2020 10:23:16 03/26/2020 11:21:36 Adult health examination 724889775 Z00.00 UTD, will check blood work. Needs infl uenza immunization 647037339 Z23 Elevated blood-pressure reading without diagnosis of hypertension 485023388 R03.0 Irritable bowel syndrome 26497123 K58.9 Body mass index 25-29 - overweight 910317696 Z68.28 E66.3 Screening for cardiovascular system disease 134645179 Z13.6 Major depr ession single episode, in partial remission 09959361 F32.4 [id number] Barbara dumont MD Main Office [address] [address] [place] [address] 05/27/2020 10:30:41 05/27/2020 11:38:57 Strain of muscle of right shoulder 6978492452 1140991 S46.911A check xray of shoulder, rest, no sling, keep gentle ROM if xray negative, can use OTC pain reliever, Start PT belen. If worsening to call. Out of work for 1 week, if needs more time will call Use ice x 24-48 hours, then ice/heat. Inflammati on of sacroiliac joint 56740065 M46.1 Rest, stretching , change position frequently , will call if any worsening sx. [id number] Livan Fatima MD Main Office [address] [address] [place] [address] 07/23/2020 14:49:33 07/23/2020 15:25:15 Otalgia 13057565 H92.02 Left ear pain but it hurts if she swallows, turns her head, yawns ect. suspect related to lymph node. Cervical lymphadenopathy 257563392 R59.0 left anterior cervical node tenderness , swelling. causes ear pain. Exposure t o viral disease 8602122951 39164 Z03.818 had temp 99.5 today. has had chills/ feeling hot and cold, very fatigued. she did have moderna covid vaccine 07/03 and had side effects to that which have resolved. 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 Plantar fa sciitis of left foot 4697741538 8579877 M72.2 Patient has tried exercises and Boot at night with no improvemen t.Will refer to podiatry to consider injections . Patient is establishe d with [facility] and I advised her to call for apt. Pain in left foot 855952 7336 96043 M79.672 DDx include neuroma, nerve entrapment .Patient [...] she has. Patient is establishe d with [facility] and I advised her to call.No xray at this time as she does not meet [place] criteria for xray. [id number] Livan [facility] MD [facility] [address] [address] [place] [address] 10/02/2020 11:39:51 10/02/2020 15:16:28 Diarrhea 55163233 R19.7 has resolved but nausea persists. Abdominal pain 48811337 R10.9 Exposure t o viral disease 6481121636 41762 Z03.818 Nausea 122939682 R11.0 use as needed Primary bi liary cholangitis 09777798 K74.3 on ursodiol taking med as directed. Renal cell carcinoma [address]90[address]64[address] in October. [id number] Livan Fatima MD Main Office [address] [address] [place] [address] 03/27/2021 08:31:51 03/27/2021 09:24:31 Adult health examination 049338858 Z00.00 UTD, has bloodwork regularly for her kidney/ ct scans Elevated blood-pressure reading without diagnosis of hypertension 417013822 R03.0 BP normal manually Renal cell carcinoma 702 025176 C64.9 Followed by urology, 1 kidney Primary bi liary cholangitis 56060712 K74.3 on ursodiol taking med as directed. Generalize d anxiety disorder 58848187 F41.1 on sertraline , considerin g weaning off. she will go to 25mg for now through the winter Administra tion of viral vaccine 61946043 Z23 [id number] Livan Fatima MD Main Office [address] [address] [place] [address] 03/31/2021 13:28:41 03/31/2021 14:16:10 Cellulitis of left upper limb 2751022301 1385903 L03.114 NSAIDs for pain and swelling and ice. May not be an infection but instead may be a local reaction to the immunizati on. She will call if she develops diarrhea because of her h/o c. dif. [id number] Livan Fatima MD Main Office [address] [address] [place] [address] 09/12/2021 10:16:27 09/12/2021 10:46:05 Low back pain 497488668 M54.50 low back pain, will tx with prednisone burst and flexeril as needed. no driving or alcohol with med. Heat to area as needed. stretching as tolerated. if sx persist will need imaging. Call or return for worsening or concerns. History of primary malignant neoplasm of kidney [id number] Z85.528 renal cell carcinoma, left kidney. nephrectom y. Primary bi liary cholangitis 22143779 K74.3 on ursodiol taking med as directed. [id number] Barbara dumont MD Telehealt h [address] [facility] 207 [facility] [place] [address] 12/24/2021 09:23:33 12/24/2021 11:19:34 Cough 93037454 R05.1 Pneumonia 105969795 J18. 9 will send over Zpak to [...] no role for CXR at this time [id number] Livan Fatima MD Main Office [address] [facility] 207 [place] [address] 04/21/2022 13:10:00 04/21/2022 14:08:51 Pre-surgery evaluation 137565116 Z01.818 Having right topaz plantar fasciotomy with [...] surgery as scheduled. Renal cell carcinoma 702 357029 C64.9 Followed by urology, 1 kidney Elevated blood-pressure reading without diagnosis of hypertension 803787173 R03.0 BP normal manually Primary bi liary cholangitis 27277967 K74.3 on ursodiol taking med as directed. Fibromatos is of plantar fascia of right foot [id number] 4282364 M72.2 having fasciotomy Hyperlipidemia 64927998 E78.5 Fatigue 56075199 R53.83 Impaired f asting glycemia 173085762 R73.01 Generalize d anxiety disorder 89090307 F41.1 she will go to 25mg daily x 2 weeks. [id number] Livan Fatima MD Main Office [address] [place] [address] 04/23/2022 10:39:54 04/23/2022 11:22:36 Adult health examination 549441613 Z00.00 HM due for mammo and pap- she will schedule, colonoscop y due in 2026. Flu shot today. Bloodwork was done this morning, pending results. Needs infl uenza immunization 754839992 Z23 Fibromatos is of plantar fascia of right foot [id number] 7374062 M72.2 having fasciotomy Primary bi liary cholangitis 33323503 K74.3 on ursodiol taking med as directed. Renal cell carcinoma 702 027038 C64.9 Followed by urology, 1 kidney Generalize d anxiety disorder 57165571 F41.1 Continue sertraline 25mg daily x 2 weeks, then cut tab in half and take 12.5mg daily x 2 weeks.then will take 6.25mg daily x 1 week then stop medication .If any trouble stopping med please call/ return Pain of le ft hip joint [id number] 55037 M26.252 [id number] Susan De Oliveira PA-C Main Office [address] [address] [place] [place] [address] 03/16/2023 10:12:04 03/16/2023 10:58:48 Viral upper respiratory tract infection 731325040 J06.9 Pt. is advised to increase hydration and rest, add otc decongesta nts such as Delsym, diphenhydr amine. Nasal saline or saline rinse. [id number] Livan Fatima MD Main Office [address] [address] [place] [place] [address] 04/27/2023 08:48:38 04/27/2023 09:46:23 Adult health examination 031335788 Z00.00 HM- UTD, pap, mammo and colo UTD. Fibromatos is of plantar fascia of right foot 1747829710 4182004 M72.2 had fasciotomy last May, still has pain and now has chronic tendinitis . Primary bi liary cholangitis 97155471 K74.3 on ursodiol taking med as directed. Generalize d anxiety disorder 91582726 F41.1 Continue sertraline 25mg daily Hyperlipidemia 31593121 E78.5 Impaired f asting glycemia 345820734 R73.01 Fatigue 35150939 R53.83 Body mass index 30+ - obesity 480888902 Z68.34 Elevated blood-pressure reading without diagnosis of hypertension 443513356 R03.0 BP manually 136/80, thi is elevated for her and was elevated at her last visit. She will work on cutting back on sodium, drinking more water and starting to walk again. F/U in 1 month for recheck. History of primary malignant neoplasm of kidney 996221113 Z85.528 Followed by urology, 1 kidney, had CT scan in October Obesity 151185734 E66.9 [id number] Livan Fatima MD Main Office [address] [facility] 207 [place] [address] 07/13/2023 11:12:57 07/13/2023 11:59:34 Fever 688884989 R50.9 + covid, continue tylenol or nyquil/ dayquil Cough 57190362 R05.9 COVID-19 584207173 U07.1 Covid positive in office, this is [...] any resp distress, severe or worsening sx. [id number] Livan Fatima MD Main Office [address] [facility] 207 [place] [address] 05/02/2024 15:16:10 05/02/2024 15:45:05 Adult health examination 457785883 Z00.00 HM- UTD, pap, mammo and colo UTD. Primary bi liary cholangitis 22237522 K74.3 on ursodiol taking med as directed. History of primary malignant neoplasm of kidney 123696356 Z85.528 Followed by urology, 1 kidney, had CT scan in October- all good. Generalize d anxiety disorder 23282830 F41.1 Continue sertraline 25mg daily Hyperlipidemia 21569607 E78.5 Impaired f asting glycemia 257832125 R73.01 Fatigue 08387297 R53.83 Elevated blood-pressure reading without diagnosis of hypertension 963718791 R03.0 BP manually 120/66 Obesity 889262830 E66.9 Body mass index 30+ - obesity 239320943 Z68.34 Vitamin D deficiency 347 55286 E55.9 [id number] Livan Fatima MD Main Office [address] [facility] 207 [place] [address] 07/06/2024 10:28:25 07/06/2024 11:31:13 Cough 35951038 R05.9 declines cough med currently, neg flu and covid. +OM Acute righ t otitis media 525115270 H66.91 Hydration, rest, tylenol as needed, tea with honey. clarithrom ycin as directed. 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 80731 This is probably secondary to her prior [...] Ward Member ID Guarantor Name 03/15/2023 1 [facility] ([facility]) [id number] Tere Junior [id number] Tere Junior 05/01/2025 1 [employer] [facility] [id number] Tere Sara Vernon [id number] Tere Junior Notes Date Note Type Note [...] cut out afternoon coffee, stress Lynda ortega, [facility] 04/27/2023 15:30:51 07/13/2023 text/html Generic HPI TemplateReported by PatientSx started wednesday- body aches, couldn't sleep, chills, fever, congestion, couhg with production, slight SOB with activity, no N/V/D, no sore throat, ear pain, no headache. neg covid- this morning.Neg flu test here.Taking nyquil and dayquil with some relief. - feels like chest hurts. Noah Sanchez, [facility] [address] [facility] [address], [place], [address], [facility] 07/13/2023 12:14:09 05/02/2024 text/html Generic HPI TemplateReported by PatientPresents for PE,No concerns but BP is high. No headaches, sometimes does get chest discomfort at random times, no palpitationshas lost 4 lbs and 13 inches since January. is having hot flashes, night sweats, mood changes Noah Sanchez [facility] [address] [facility] [address], [place], [address], [facility] 05/02/2024 16:02:35 07/06/2024 text/html Generic HPI TemplateReported by PatientSx started Wednesday- body aches, chills, low grade temp, cough, dry for now but feels congestion, nasal congestion- yellow, sinus pressure/ pain, teeth pain, ear pain and blocked- bilateral, no N/V/D.No sick contacts BRODY Roberts [address] [address], [place], [address], [facility] 07/06/2024 12:04:20 11/28/2024 text/html ROS as noted [...] on her body recently. Livan Fatima MD [address] [address], [place], [address], [facility] 11/28/2024 10:24:26 OBGyn Episode No OBEpisode recorded.
== END 2025-05-02 16:00 | disposition home or self-care (01) ==
LOC: HO.HOS 15:30
PROVIDERS: PCP Physician Assistant Medical
DX: G56.03 Carpal tunnel syndrome, bilateral upper limbs (principal)
CPT/HCPCS: 99214

== ENCOUNTER 2025-06-14 07:41 | Outpatient (REF) | payer OTHER, SELFPAY ==
[2025-06-14 07:58] LABS: MANUAL DIFF FLAG NO
[2025-06-14 08:36] LABS: Hematocrit 42.5 % (37.0-47.0); Hemoglobin 13.5 g/dl (12.0-16.0); Imm Gran Abs Auto 0.02 X10*3/uL (0.00-0.03); Imm Gran Pct Auto 0.3 % (0.0-0.4); Lymphocytes Absolute Auto 2.2 X10*3/uL (1.2-4.9); Mean Corpuscular HGB Conc 31.8 g/dl (31.0-35.0); Mean Corpuscular Hemoglobin 26.0 pg (27.0-33.0); Mean Corpuscular Volume 81.9 fL (80.0-98.0); NRBC Abs Auto 0.000 X10*3/uL (0.0-0.012); NRBC Pct Auto 0.0 /100WBC (0.0-0.2); Platelet Count 356 X10*3/uL (160-400); Red Blood Count 5.19 X10*6/uL (4.20-5.50); White Blood Count 6.9 X10*3/uL (4.8-10.8)
[2025-06-14 09:40] LABS: Alanine Aminotransferase 54 U/L (0-31); Albumin Level 4.6 g/dL (3.5-5.0); Alkaline Phosphatase 107 U/L (39-117); Anion Gap 10 (12-20); Aspartate Amino Transferase 37 U/L (5-31); Blood Urea Nitrogen 17 mg/dL (9-16); Calcium 9.6 mg/dL (8.4-10.2); Carbon Dioxide 27 mmol/L (22-29); Chloride 107 mmol/L (96-108); Cholesterol 213 mg/dL (<200); Estimated Glomerular Filt Rate 51; HDL Cholesterol 43 mg/dL (>40); Potassium 4.3 mmol/L (3.3-5.1); Sodium 140 mmol/L (135-145); Total Protein 7.5 g/dL (6.5-8.0); Triglycerides 174 mg/dL (<150)
[2025-06-14 09:44] LABS: Thyroid Stimulating Hormone 1.26 uIU/mL (0.32-4.0)
== END 2025-06-14 07:42 | disposition home or self-care (01) ==
LOC: HO.LAB 07:41
PROVIDERS: PCP Physician Assistant Medical; Visit Provider Physician Assistant Medical
DX: R73.01 Impaired fasting glucose (principal); R53.83 Other fatigue; E55.9 Vitamin D deficiency, unspecified; E78.5 Hyperlipidemia, unspecified
CPT/HCPCS: 36415; 80053; 80061; 82306; 83036; 84443; 85025

== ENCOUNTER 2025-06-14 08:12 | Day surgery (SDC) | payer OTHER, SELFPAY ==
[2025-06-14 08:38] VITALS: BMI 34.7
[2025-06-14 08:39] VITALS: BP 169/83; PULSE 83; RESP 16; TEMP 36.6; O2SAT 98
--- NOTE | 2025-06-14 09:20 | MHC.SHP ---
Pre-Procedural Eval Section A - 24 Hr Update-Section A only Date of Service: 06/14/25 The patient is an INPATIENT: No Changes since office visit: No Cold of Flu in the past 2 weeks, No New Medical Problems, No Changes in Medication and No Patient answered all questions The patient has been examined within 24 hours of the surgical procedure. The History & Physical has been completed within 30 days and I have reviewed it.: Yes Section B - Complete if H&P > 30 days Chief Complaint: Carpal tunnel syndrome, left upper limb Allergies: Allergies Allergy/AdvReac Type Severity Reaction Status Date / Time amoxicillin Allergy Rash Verified 05/02/25 15:33 cephalexin (From Keflex) Allergy Rash Verified 05/02/25 15:33 Plan Diagnosis/Plan: Unchanged I have reviewed the history and physical and performed a pertinent physical examination on my patient. No changes have occurred unless specified. Time Spent With Patient Time: Total time managing care of this patient today ____ minutes.
--- NOTE | 2025-06-14 09:20 | W.PM.OPN ---
Operative Note Operative Note Date of Service: 06/14/25 Narrative: Preop diagnosis: 1. Left Carpal tunnel syndrome Postop diagnosis: same Procedure: 1. Left Carpal tunnel release Surgeon: Jolie Hoover MD Adobe Block Maker: Juan A LICONA Anesthesia: local block using 1% lidocaine with epinephrine Findings: Thickened transverse carpal ligament. EBL: Less than 5 mL Specimens: None Complications: None Disposition: Brought to recovery room in stable condition Plan: Follow-up for 10-14 days for wound check and suture removal Indications: The patient is 50 years old, with left carpal tunnel syndrome that has been unresponsive to nonoperative management. The risks and benefits of operative treatment including but not limited to risk of damage to blood vessels, nerves, tendons, infection, persistent pain, persistent symptoms, or possible need for additional surgery were discussed with the patient and the patient wishes to proceed with surgery. Procedure: Once consent was obtained a local block was performed using a combination of 1% lidocaine with epinephrine. The patient was then brought back to the operating suite and placed on the operative table in supine position. The left upper extremity was prepped and draped in a standard surgical fashion. Once assured that we had a good block, a 2.0 cm longitudinal incision was made centered over the carpal tunnel. The incision was made through the skin to the subcutaneous tissues using a #15 blade. Dissection was made down to the level of the transverse carpal ligament with care being taken to protect the palmar cutaneous nerve. Once the transverse carpal ligament was clearly visualized, a longitudinal incision was made in the transverse carpal ligament 1st using a #15 blade, then using tenotomy scissors under direct visualization. Care was taken to look for and protect the motor branch of the median nerve when seen in this area. Once satisfied with our carpal tunnel release the wound was copiously irrigated with normal saline and hemostasis was obtained with a brief period of local pressure. The skin edges were reapproximated with some 5.0 nylon suture material and a sterile dressing was applied. The patient appears to have tolerated the procedure well and with no complications. All digits were well vascularized at the conclusion of the case.
[2025-06-14 10:45] VITALS: BP 135/77; PULSE 85; RESP 13; O2SAT 97
== END 2025-06-14 10:46 | disposition home or self-care (01) ==
PROVIDERS: PCP Physician Assistant Medical; Visit Provider Orthopaedic Surgery
PROC: (CPT 64721; principal; 2025-06-14 10:10)
DX: G56.02 Carpal tunnel syndrome, left upper limb (principal); Z85.528 Personal history of other malignant neoplasm of kidney; Z90.5 Acquired absence of kidney; K58.9 Irritable bowel syndrome, unspecified; Z88.1 Allergy status to other antibiotic agents
CPT/HCPCS: 64721; J0165; J2003

== ENCOUNTER → 2025-06-14 08:12 | Outpatient (BNV) | payer OTHER, SELFPAY | PROVIDERS: PCP Physician Assistant Medical; Visit Provider Orthopaedic Surgery | DX: G56.02 Carpal tunnel syndrome, left upper limb (principal) | CPT/HCPCS: 64721 ==

== ENCOUNTER 2025-06-20 14:13 | Outpatient (AMB) | payer OTHER, SELFPAY ==
[2025-06-20 14:20] VITALS: BP 118/72; PULSE 77; O2SAT 98; BMI 36.8
--- NOTE | 2025-06-20 14:20 | A.OFFVIS_ITS ---
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 Hard time staying asleep. Witnessed Snoring/gasping. No witnessed apnea. Goes to bed at 10om wakes up at 5:30. Wakes up 3-4times a night. Naps hour and half. No headaches. No history of sleep studies. Accompanied by: Self / Same As Patient Allergies adhesive tape Allergy (Unknown, Verified 06/20/25 14:23) Unknown NSAIDS (Non-Steroidal Anti-Inflamma Allergy (Unknown, Verified 06/20/25 14:23) Unknown amoxicillin Allergy (Verified 06/20/25 14:23) Rash cephalexin (From Keflex) Allergy (Verified 06/20/25 14:23) Rash HPI Comments Details: 50 year old female with h/o CTS is referred to us for an evaluation of sleep apnea. [facility] 06/2025 CTS l. side release. In September 2019, she had a Nephrectomy in [facility], due to Renal cell cancer stage 1 g rade 3, and continues to have a difficult time sleeping. She is chronically fatigued. She has nocturia causing multiple arousals with tossing and turning. She goes back to sleep eventually however continues to snore loudly, wakes up choking and gasping for air. 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 She has bilateral TMJ pain due to clenching, and grinding for years and wears her mouth guard most nights. She denies morning headaches, acid reflux, parasomnias and RLS symptoms of paresthesias. Memory is okay. Mood is good. Diet is in need of attention, she drinks plenty of water and walks daily. She is chronically fatigued. She is not a smoker, drinks socially. FH+ mom seizure disorder passed at 58 years old. [facility] Medical History Malignant neoplasm of kidney Vitamin D deficiency Obesity IFG (impaired fasting glucose) Hyperlipemia Fibromatosis Low back pain Primary biliary cholangitis Anxiety Psoriasis GERD (gastroesophageal reflux disease) IBS (irritable bowel syndrome) Renal cell carcinoma Surgical History History of carpal tunnel surgery of left wrist H/O colonoscopy Hx of fasciotomy Hx of tonsillectomy Hx of tubal ligation History of nephrectomy, left Family History Father Diabetes mellitus Heart disease HTN (hypertension) Kidney disease Mother Uterine cancer Seizure Brother HTN (hypertension) Depression Social History Patient Tobacco Use Status: Never used Tobacco Current occupational status: employed 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/ [employer] Physical Exam Vital Signs: Last Vital Signs Pulse 77 06/20/25 14:20 BP 118/72 06/20/25 14:20 Pulse Ox 98 06/20/25 14:20 Oxygen Delivery Method Room Air 06/20/25 14:20 BMI result Body Mass Index 36.8 Const General: cooperative, comfortable and no acute distress Nutritional Appearance: average body habitus and overweight Orientation/consciousness: patient oriented x3 HEENT Face and sinus: Yes face symmetric Teeth and gingiva: other (mallampti score is 3) Eyes Pupils: Equal, round and reactive pupils present Neck Other: limited rom on lateral rotation Resp Effort & Inspection: normal respiratory effort and able to speak in complete sentences Neuro General: patient oriented x3 and moves all extremities Cranial nerves: Yes Equal, round and reactive pupils present, Yes Normal accommodation reflex present, Yes Midline tongue present, Yes Ability to bilaterally rotate head present and Yes Ability to bilaterally elevate shoulders present Cognition (Neuro): normal cognition Gait exam (Neuro): Normal gait present Motor exam (neuro): 5/5 motor strength present throughout and Normal motor muscle tone present throughout Psych Appearance: grossly normal Speech and movement: Normal speech and movement present Thought process: Normal thought process present Results Reviewed Results Reviewed: CTS L>R IMPRESSION: 1. This is an abnormal study. 2. There is electrodiagnostic evidence for bilateral moderate-severe median neuropathy at the wrist, consistent with carpal tunnel syndrome. 3. There is no electrodiagnostic evidence for ulnar neuropathy, brachial plexopathy, or cervical radiculopathy. 06/2025 Carpal Tunnel release L. side, surgical note reviewed. Assessment & Plan Assessment & Plan (1) Loud snoring: Code(s): R06.83 - Snoring Category: Medical (2) Numbness and tingling in both hands: Code(s): R20.0 - Anesthesia of skin; R20.2 - Paresthesia of skin Category: Medical (3) Excessive daytime sleepiness: Code(s): G47.19 - Other hypersomnia Category: Medical Plan HST r/o patrick Labs reviewed with pt. LDL, triglycerides, AST / ALT eleveated, Vit D low normal at 35, will assess for RLS and paresthesias at next visit if pt states symptoms are persistent. She recently had CTS release 06/2025. F/U in 3 months. Orders: Orders RT home sleep study Today G47.19 - Other hypersomnia Medications: New cholecalciferol (vitamin D3) 25 mcg PO DAILY 90 tabs 0RF 3 months Patient Instructions: Please complete the following fasting labs to rule out deficiencies. CBC/CMP/ B12/ Vit D/ TSH/ Homocysteine and MMA/ Ferritin. Sleep Hygiene provided: set a scheduled bedtime and wake time to help regulate the circadian rhythm and balance the release of pituitary hormones. Sleep in a dark room, temperatures below 68 degrees, and no devices n bed. Limit caffeinated products 6 hours prior to bed, and limit fluids 2-4 hours prior to bed. Gentle night yoga, diffusing essential oils, and playing soft music can be relaxing. Coding Level of Care Code New Pt Level 4 (33559) Diagnoses Loud snoring R06.83 Numbness and tingling in both hands R20.0; R20.2 Excessive daytime sleepiness G47.19 Sleep Questionnaire Difficulty falling asleep: No Difficulty staying asleep?: Yes Number of arousals: 2-3 Snoring: Yes Witnessed apneas: No Gasping arousals: Yes Nocturia: Yes GERD: No Vivid dreams: No Acting out dreams: No Abnormal behavior in sleep: No Abnormal movements in sleep: No Morning headaches: No Excessive daytime sleepiness: No Daytime naps: Yes Restless legs: No Hallucinations: No Sleep paralysis: No Drop attacks: No Sleep Study: No CPAP: No
--- OUTSIDE RECORDS SUMMARY | 2025-06-20 19:00 | XMS_ITS | Patient Health Record ---
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 . [...] . 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
--- OUTSIDE RECORDS SUMMARY | 2025-06-20 19:00 | XMS_ITS | Clinical Summary ---
Author Organization [facility] [address] [facility] Address [address] [place] [address] Phone Care Team Providers Care Cyber Defense Analyst Name Role Phone Noah Sanchez Primary Care Provider [phone] Allergies Active Allergy Reactions Criticality Noted Date [...] Take 1 tablet by mouth. 0 Active cholestyramine (QUESTRAN) 4 gram packetIndications: Primary biliary cholangitis (CMS/HCC V24, CMS/HCC V28) TAKE 1 PACKET BY MOUTH 2 TIMES A DAY WITH MEALS. DISSOLVE IN 8 OZ OF LIQUID AND DRINK BEFORE A MEAL 180 packet 1 5 Active hydrOXYzine HCL (ATARAX) 10 mg tabletIndications: Pruritus TAKE 2 TABLETS BY MOUTH 1 TIME EACH DAY IN THE EVENING. START WITH ONCE DAILY AT NIGHT AND INCREASE TO 2 IF TOLERATED. 180 tablet 1 5 Active ursodioL (ACTIGALL) 300 mg capsuleIndications :Primary biliary cholangitis (CMS/HCC V24, CMS/HCC V28) Take 3 capsules (900 mg total) by mouth 1 (one) time each day. 90 each 5 5 026 Active ursodioL (ACTIGALL) 300 mg capsule take 3 capsules (900 mg total) by mouth 1 (one) time each day. 025 Discontin ued(Reord er) Encounters Date Type Department Care Team Description 04/04/2025 Results Follow-Up Gastroenterology - [address] [place] [address] Roseline Leone MD from Last [...] on file Sexual Orientation Not on file Last Filed Vital Signs Vital Sign Reading [...] of 2) 2025 COVID-19 Vaccine (3 - 2024- season) 2025 07/31/2020, 07/03/2020 Influenza Vaccine (#1) 2025 4, 04/21/2023, 04/23/2022, Additional history exists DTaP,Tdap,and Td [...] FUNCTION PANEL Routine 04/03/2025 Primary biliary cholangitis ([facility]/HCC V24, [facility] V28) from Last 3 Months Results * Hepatic function panel (04/03/2025) Blood Venous blood specimen / Unknown us Roseline Leone MD LAB BLOOD ORDERABLES Final Res ult EXTERNAL LAB (NON-INTERFACED) from Last 3 Months Insurance [facility] [place] [id number] [employer] [facility] Care Teams Cyber Defense Analyst Relationship Specialty Start Date End Date Noah Sanchez PA [address] [address] PCP - General Physician Gas Pump Attendant 04/28/24
--- OUTSIDE RECORDS SUMMARY | 2025-06-20 19:01 | XMS_ITS | Data Portability ---
Author Organization [facility], Main Office Address [address] [facility] [place] [address] Care Team Providers Care Apple Packing Header Name Role Phone LAURA NAIK Telephone Surveyor SANDRA NIETO Agricultural Lender GILMER MARTINO Historical Archeologist [phone] ODILIA DOYLE Urologist TRESA BERRY Urologist ALLAN DE OLIVEIRA Primary Care Provider Assessment No assessment recorded. Plan of Treatment Reminders Order Date Submit Date Provider Last Modified By Organization Details Last Modified Time Details Appointments FOLLOW UP 30MIN 2025 04:00P M Allan De Oliveira PAKatarzyna Not available Not available Not available Lab lipid panel, serum 2024 [facility] (Lab), [address] [place] [address], [id number], 05/03/2025 09:30:54 CMP, serum or plasma 2024 025 [facility] (Lab), [address] [place] [address], [address], 06/16/2025 10:24:03 TSH, ultra- sensit cj, serum 2024 025 [facility] (Lab), [address] [place] [address], [address], 05/03/2025 09:30:55 CBC w/ auto diff 2024 [facility] (Lab), [address] [place] [address], [address], 05/03/2025 09:30:54 HbA1c (hemog lobin A1c), blood 2024 [facility] (Lab), [address] [place] [address], [address], 05/03/2025 09:30:55 vitami n D, 25-hyd tim, total, serum 2024 [facility], [address] [place], [address], 05/03/2025 09:29:47 vitami n D, 25-hyd tim, total, serum 2024 [facility] (Lab), [address] [place] [address], [address], 11/29/2024 12:06:32 TSH, serum or plasma 2024 [facility] (Lab), [address] [place] [address], [address], 11/28/2024 10:16:46 lyme antibo dy screen , EIA/el josesito, serum 2024 [facility] (Lab), [address] [place] [address], [address], 11/28/2024 10:16:46 C-reac tive protei n, quanti tative , serum or plasma 2024 [facility] (Lab), [address] [place] [address], [address], 11/28/2024 10:18:19 ESR (eryth rocyte sedime ntatio n rate), blood 2024 [facility] (Lab), [address] [place], [address], 11/29/2024 12:06:33 CMP, serum or plasma 2024 025 [facility] (Lab), [address] [place], [address], 11/29/2024 12:06:30 CBC 2024 025 [facility] (Lab), [address] [place], [address], 11/28/2024 10:18:19 rapid flu (A+B) 2024 025 [facility] In-Office Order, Internal Use Only DO Not Attach Compendium DO Not Attach Compendium, Do Not Delete/merge, [id number] 07/06/2024 11:16:34 rapid SARS CoV 2 Ag, QL IA, respir atory specim en 2024 025 [facility] In-Office Order, Internal Use Only DO Not Attach Compendium DO Not Attach Compendium, Do Not Delete/merge, [id number] 07/06/2024 11:09:10 CMP, serum or plasma 2023 024 [facility] (Lab), [address] [place], [address], 05/12/2024 11:32:57 lipid panel, serum 2023 024 [facility] (Lab), [address] [place], [address], 05/12/2024 11:32:57 TSH, serum or plasma 2023 024 [facility] (Lab), [address] [place], [address], 11/29/2024 09:28:10 T4, free, serum 2023 024 [facility] (Lab), [address] [place], [address], 05/02/2024 15:28:53 HbA1c (hemog lobin A1c), blood 2023 024 [facility] (Lab), [address] [place], [address], 05/02/2024 15:28:52 vitami n D, 25-hyd tim, total, serum 2023 024 [email or web address], [address], [place], [address], 07/31/2024 09:12:11 CBC w/ auto diff 2023 024 [facility] (Lab), [address] [place], [address], 11/29/2024 12:06:29 rapid flu (A+B) 2023 024 RAQUEL In-Office Order, Internal Use Only DO Not Attach Compendium DO Not Attach Compendium, Do Not Delete/merge, [id number] 07/13/2023 11:40:33 rapid SARS CoV 2 Ag, QL IA, respir atory specim en 2023 024 ROBARDS In-Office Order, Internal Use Only DO Not Attach Compendium DO Not Attach Compendium, Do Not Delete/merge, [id number] 07/13/2023 12:02:21 Referral sleep medici ne referr al 2024 025 [facility]/Sleep Depart, [address] [place] [address] Jaden Moser, [place], [address], 05/09/2025 11:48:08 nutrit ionist /dieti ranjan referr al 2024 025 [email or web address] Not available 05/03/2025 11:39:29 Procedures None record ed. Surgeries None record ed. Imaging XR, chest - cough, fever, chills , chest pain, r/o PNA 01/09/ 2024 01/09/2 024 [facility] ([facility]), [address] [place], [address], 07/13/2023 13:39:20 Medication Orders clarit hromyc in 500 mg tablet 2024 025 [facility]/Pharmacy #[id number], [address] [place], [address], 11/28/2024 09:35:26 sertra line 25 mg tablet 2023 024 [facility]/Pharmacy #[id number], [address] [place], [address], 06/13/2025 16:58:41 Patient Targets Encounter Date Encounter Id Patient Goals Patient Target Last Modified By Organization Details Last Modified Time 05/03/2025 [id number] rn acute goal of Excess Body Weight Loss % 5 Not available Not available Not available 05/03/2025 [id number] Pt advised and agrees to work on self-monitoring behaviors; begin an appropriate diet for weight loss (such as a low carbohydrate diet), to do moderate exercise (such as walking) for approximately 150 minutes per week; and to identify desirable and timely rewards that will reinforce achievement of specific weight loss goals. pmadden Not available 05/03/2025 09:29:35 Patient Instructions Encounter Date Encounter Id Patient Instructions Last Modified By Organization Details Last Modified Time 07/13/2023 [id number] things to do when you have covid-19 jthabet Not available 07/13/2023 12:12:37 coronavirus (covid-19): care instructions jthabet Not available 07/13/2023 12:12:37 To call or return for worsening or concerns jthabet Not available 07/13/2023 12:13:59 05/02/2024 [id number] dash diet: care instructions jthabet Not available 05/02/2024 15:27:17 high blood pressure: care instructions jthabet Not available 05/02/2024 15:27:17 low sodium diet (2,000 milligram): care instructions jthabet Not available 05/02/2024 15:27:17 Starting a Weight-Loss Plan: Care Instructions jthabet Not available 05/02/2024 15:27:16 To call or return for worsening or concerns jthabet Not available 05/02/2024 15:32:51 07/06/2024 [id number] To call or return for worsening or concerns jthabet Not available 07/06/2024 11:04:41 11/28/2024 [id number] myalgic encephalomyeliti s/chronic fatigue syndrome: care instructions acennerazzo Not available 11/28/2024 10:15:41 05/03/2025 [id number] Well Visit, Ages 18 to 65: Care Instructions pmadden Not available 05/03/2025 09:29:45 Starting a Weight-Loss Plan: Care Instructions pmadden Not available 05/03/2025 09:29:45 Nutrition Referral and Weight Management Follow-up Information pmadden Not available 05/03/2025 09:29:45 Medications (OTC, herbal therapies, supplements) reviewed and reconciled with patient and or caregiver, including potential side effects, drug interactions, instructions, and the consequences of not taking medication. Reviewed potential barriers to medication adherence, such as side effects from medication or cost of medication. 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 Refer ral for Body mass index 30+ - obesity Referring Physician: Allan De Oliveira, Internal Medicine, Encounter Date: 05/03/2025 Sleep Medicine Referral for Snoring Referring Physician: Allan De Oliveira, Internal Medicine, Encounter Date: 05/03/2025 Results Created Date Observation Date Name Description Value Unit Range Abnormal Flag Note LastModifiedBy Organization Detail LastModifiedTime 07/13/19 24 07/13/2023 rapid SARS CoV 2 Ag, QL IA, respi rator y speci men RAPID SARS COV 2 positi ve Not Available In-Office Order Internal Use Only DO Not Attach Compendium DO Not Attach Compendium, Do Not Delete/merge, [id number] 07/13/2023 11:48:22 07/13/19 24 07/13/2023 rapid flu (A+B) Flu A negati ve Not Available In-Office Order Internal Use Only DO Not Attach Compendium DO Not Attach Compendium, Do Not Delete/merge, [id number] 07/13/2023 11:21:58 07/13/19 24 07/13/2023 rapid flu (A+B) Flu B negati ve Not Available In-Office Order Internal Use Only DO Not Attach Compendium DO Not Attach Compendium, Do Not Delete/merge, [id number] 07/13/2023 11:21:58 07/06/19 25 07/06/2024 rapid flu (A+B) Flu A negati ve Not Available In-Office Order Internal Use Only DO Not Attach Compendium DO Not Attach Compendium, Do Not Delete/merge, [facility] 07/06/2024 10:50:01 07/06/1907/06/2024 rapid flu (A+B) Flu B negati ve Not Available In-Office Order Internal Use Only DO Not Attach Compendium DO Not Attach Compendium, Do Not Delete/merge, [facility] 07/06/2024 10:50:01 07/06/19 25 07/06/2024 rapid SARS CoV 2 Ag, QL IA, respi rator y speci men RAPID SARS COV 2 negati ve Not Available In-Office Order Internal Use Only DO Not Attach Compendium DO Not Attach Compendium, Do Not Delete/merge, [facility] 07/06/2024 10:50:14 11/29/19 25 11/29/2024 CBC WITH DIFFE RENTI AL/PL ATELE T WBC 9.1 x10e3 /uL 3.4-10 .8 normal Not Available [facility] ([facility]) [address] [place], [address], 11/29/2024 12:06:29 11/29/19 25 11/29/2024 CBC WITH DIFFE RENTI AL/PL ATELE T RBC 5.05 x10e6 /uL 3.77-5 .28 normal Not Available [facility] ([facility]) [address] [facility], [place], [address], 11/29/2024 12:06:29 11/29/19 25 11/29/2024 CBC WITH DIFFE RENTI AL/PL ATELE T hemoglobin 13.2 g/dL 11.1-1 5.9 normal Not Available [facility] ([facility]) [address] [place], [address], 11/29/2024 12:06:29 11/29/1911/29/2024 CBC WITH DIFFE RENTI AL/PL ATELE T hematocrit 41.4 % 34.0-4 6.6 normal Not Available [facility] ([facility]) [address] [place], [address], 11/29/2024 12:06:29 11/29/1911/29/2024 CBC WITH DIFFE RENTI AL/PL ATELE T MCV 82 fL 79-97 normal Not Available [facility] ([facility]) [address] [place], [address], 11/29/2024 12:06:29 11/29/1911/29/2024 CBC WITH DIFFE RENTI AL/PL ATELE T MCH 26.1 pg 26.6-3 3.0 below low normal Not Available [facility] ([facility]) [address] [place], [address], 11/29/2024 12:06:29 11/29/1911/29/2024 CBC WITH DIFFE RENTI AL/PL ATELE T MCHC 31.9 g/dL 31.5-3 5.7 normal Not Available [facility] ([facility]) [address] [place], [address], 11/29/2024 12:06:29 11/29/1911/29/2024 CBC WITH DIFFE RENTI AL/PL ATELE T RDW 13.5 % 11.7-1 5.4 Not Available [facility] ([facility]) [address] [place], [address], 11/29/2024 12:06:29 11/29/1911/29/2024 CBC WITH DIFFE RENTI AL/PL ATELE T platelets 387 x10e3 /uL 150-45 0 normal Not Available [facility] ([facility]) [address] [place], [address], 11/29/2024 12:06:29 11/29/19 25 11/29/2024 CBC WITH DIFFE RENTI AL/PL ATELE T neutrophils 57 % not estab. normal Not Available [facility] ([facility]) [address] [facility], [place], [address], 11/29/2024 12:06:29 11/29/1911/29/2024 CBC WITH DIFFE RENTI AL/PL ATELE T lymphs 28 % not estab. normal Not Available [facility] ([facility]) [address] [place], [address], 11/29/2024 12:06:29 11/29/1911/29/2024 CBC WITH DIFFE RENTI AL/PL ATELE T monocytes 9 % not estab. normal Not Available [facility] ([facility]) [address] [place], [address], 11/29/2024 12:06:29 11/29/1911/29/2024 CBC WITH DIFFE RENTI AL/PL ATELE T eos 5 % not estab. normal Not Available [facility] ([facility]) [address] [facility], [place], [address], 11/29/2024 12:06:29 11/29/1911/29/2024 CBC WITH DIFFE RENTI AL/PL ATELE T basos 1 % not estab. normal Not Available [facility] ([facility]) [address] [place], [address], 11/29/2024 12:06:29 11/29/19 25 11/29/2024 CBC WITH DIFFE RENTI AL/PL ATELE T immature cells HEALTH SAFETY MANAGER Not Available [facility] ([facility]) [address] [facility], [place], [address], 11/29/2024 12:06:29 11/29/1911/29/2024 CBC WITH DIFFE RENTI AL/PL ATELE T neutrophils (absolute) 5.3 x10e3 /uL 1.4-7. 0 normal Not Available [facility] ([facility]) [address] [facility], [place], [address], 11/29/2024 12:06:29 11/29/1911/29/2024 CBC WITH DIFFE RENTI AL/PL ATELE T lymphs (absolute) 2.5 x10e3 /uL 0.7-3. 1 normal Not Available [facility] ([facility]) [address] [facility], [place], [address], 11/29/2024 12:06:29 11/29/1911/29/2024 CBC WITH DIFFE RENTI AL/PL ATELE T monocytes(ab solute) 0.8 x10e3 /uL 0.1-0. 9 normal Not Available [facility] ([facility]) [address] [place], [address], 11/29/2024 12:06:29 11/29/1911/29/2024 CBC WITH DIFFE RENTI AL/PL ATELE T eos (absolute) 0.4 x10e3 /uL 0.0-0. 4 normal Not Available [facility] ([facility]) [address] [place], [address], 11/29/2024 12:06:29 11/29/1911/29/2024 CBC WITH DIFFE RENTI AL/PL ATELE T baso (absolute) 0.1 x10e3 /uL 0.0-0. 2 normal Not Available [facility] ([facility]) [address] [place], [address], 11/29/2024 12:06:29 11/29/1911/29/2024 CBC WITH DIFFE RENTI AL/PL ATELE T immature granulocytes 0 % not estab. Not Available [facility] ([facility]) [address] [facility], [place], [address], 11/29/2024 12:06:29 11/29/19 25 11/29/2024 CBC WITH DIFFE RENTI AL/PL ATELE T immature grans (abs) 0.0 x10e3 /uL 0.0-0. 1 Not Available [facility] ([facility]) [address] [facility], [place], [address], 11/29/2024 12:06:29 11/29/19 25 11/29/2024 CBC WITH DIFFE RENTI AL/PL ATELE T NRBC HEALTH SAFETY MANAGER Not Available [facility] ([facility]) [address] [facility], [place], [address], 11/29/2024 12:06:29 11/29/19 25 11/29/2024 CBC WITH DIFFE RENTI AL/PL ATELE T hematology comments: HEALTH SAFETY MANAGER Not Available [facility] ([facility]) [address] [facility], [place], [address], 11/29/2024 12:06:29 11/29/19 25 11/29/2024 COMP. METAB OLIC PANEL (14) glucose 99 mg/dL 70-99 normal Not Available [facility] ([facility]) [address] [facility], [place], [address], 11/29/2024 12:06:30 11/29/19 25 11/29/2024 COMP. METAB OLIC PANEL (14) BUN 15 mg/dL 6-24 normal Not Available [facility] ([facility]) [address] [facility], [place], [address], 11/29/2024 12:06:30 11/29/19 25 11/29/2024 COMP. METAB OLIC PANEL (14) creatinine 1.08 mg/dL 0.57-1 .00 above high normal Not Available [facility] ([facility]) [address], [place], [address], 11/29/2024 12:06:30 11/29/19 25 11/29/2024 COMP. METAB OLIC PANEL (14) eGFR 63 mL/mi n/1.7 3 >59 normal Not Available [facility] ([facility]) [address], [place], [address], 11/29/2024 12:06:30 11/29/19 25 11/29/2024 COMP. METAB OLIC PANEL (14) BUN/creatini ne ratio 14 9-23 normal Not Available [facility] ([place] [facility]) [address] [facility], [place], [address], 11/29/2024 12:06:30 11/29/19 25 11/29/2024 COMP. METAB OLIC PANEL (14) sodium 140 mmol/ L 134-14 4 normal Not Available [facility] ([facility] [facility]) [address] [facility], [place], [address], 11/29/2024 12:06:30 11/29/19 25 11/29/2024 COMP. METAB OLIC PANEL (14) potassium 5.1 mmol/ L 3.5-5. 2 normal Not Available [facility] ([place] [facility]) [address] [facility], [place], [address], 11/29/2024 12:06:30 11/29/19 25 11/29/2024 COMP. METAB OLIC PANEL (14) chloride 101 mmol/ L 96-106 normal Not Available [facility] ([facility]) [address] [place], [address], 11/29/2024 12:06:30 11/29/19 25 11/29/2024 COMP. METAB OLIC PANEL (14) carbon dioxide, total 23 mmol/ L 20-29 normal Not Available [facility] ([facility] [facility]) [address] [place] [place], [address], 11/29/2024 12:06:30 11/29/19 25 11/29/2024 COMP. METAB OLIC PANEL (14) calcium 10.0 mg/dL 8.7-10 .2 normal Not Available [facility] ([facility]) [address] [place], [address], 11/29/2024 12:06:30 11/29/19 25 11/29/2024 COMP. METAB OLIC PANEL (14) protein, total 7.1 g/dL 6.0-8. 5 normal Not Available [facility] ([facility]) [address] [place], [address], 11/29/2024 12:06:30 11/29/19 25 11/29/2024 COMP. METAB OLIC PANEL (14) albumin 4.4 g/dL 3.9-4. 9 normal Not Available [facility] ([facility]) [address] [place], [address], 11/29/2024 12:06:30 11/29/19 25 11/29/2024 COMP. METAB OLIC PANEL (14) globulin, total 2.7 g/dL 1.5-4. 5 Not Available [facility] ([facility]) [address] [place], [address], 11/29/2024 12:06:30 11/29/19 25 11/29/2024 COMP. METAB OLIC PANEL (14) bilirubin, total 0.3 mg/dL 0.0-1. 2 normal Not Available [facility] ([facility]) [address] [place], [address], 11/29/2024 12:06:30 11/29/19 25 11/29/2024 COMP. METAB OLIC PANEL (14) alkaline phosphatase 145 IU/L 44-121 above high normal Not Available [facility] ([facility]) [address] [place], [address], 11/29/2024 12:06:30 11/29/1911/29/2024 COMP. METAB OLIC PANEL (14) AST (SGOT) 27 IU/L 0-40 normal Not Available [facility] ([facility]) [address] [facility], [place], [address], 11/29/2024 12:06:30 11/29/19 25 11/29/2024 COMP. METAB OLIC PANEL (14) ALT (SGPT) 40 IU/L 0-32 above high normal Not Available [facility] ([facility]) [address] [facility], [place], [address], 11/29/2024 12:06:30 11/29/1911/29/2024 TSH TSH 1.500 uIU/m L 0.450- 4.500 normal Not Available [facility] ([facility]) [address] [facility], [place], [address], 11/29/2024 12:06:31 11/29/1911/29/2024 VITAM IN D, 25-HY DROXY vitamin D, [...] Medic ine). 2010. Dieta ry refer ence michael es for calci um and D. Nicholas villa [place]: The Natio nal [facility] Press . 2. Charlotte white [place], Kelly hernandes [place], Ashley off-F errar i VIZCAINO, et al. Evalu ation , treat ment, and preve ntion of vitam in D defic iency : an Endoc rine Socie ty clini dheeraj pract ice guide line. JCEM. 2010; 96(7) :1911 -30. Not Available [facility] ([facility]) [address] [facility], [place], [address], 11/29/2024 12:06:32 11/29/19 25 11/29/2024 LYME DISEA SE SEROL OGY W/REF RICARDO lyme total antibody chapito NEGATI VE negati ve Lyme antib odies not detec [...] is recom gigi d. Not Available [facility] ([facility]) [address] [facility], [place], [address], 11/29/2024 12:06:32 11/29/19 25 11/29/2024 SEDIM ENTAT ION RATE- WESTE RGREN sedimentatio n rate-westerg angel 27 mm/HR 0-32 normal Not Available [facility] ([facility]) [address] [facility], [place], [address], 11/29/2024 12:06:33 11/29/19 25 11/29/2024 C-SASHA CTIVE PROTE IN, QUANT C-reactive protein, quant 9 mg/L 0-10 normal Not Available [facility] ([facility]) [address] [facility], [place], [address], 11/29/2024 12:06:34 07/13/19 24 07/13/2023 XR, chest No observ ation record ed. [facility] (Imaging) [address] [facility], [place], [address], 07/20/2023 08:53:36 08/24/19 24 08/24/2023 US, doppl er, venou s No observ ation record ed. [email or web address] [facility] (Medical Records) [address] [facility], [place], [address], 08/25/2023 08:42:01 08/30/19 24 08/30/2023 MAMMO , [...] (Negat cj) Lay letter mailed to bert aaorn WSN: [id number] Orderi ng Physic yves: Laura LICONA, Ian Richard Dictat ed By: Leo Villaseñor MD Dictat ed Date/T sha: 4:38 pm Review ed By: Leo Villaseñor MD Signed By: Leo Villaseñor MD Signed Date/T sha: 4:38 pm Transc ribed By: HEATHER Transc riptio n Date/T sha: 1:13 pm Birads : Bert walker Class: Outpat ient [email or web address] [facility] (Outpt Imaging) [address], [place], [address], 08/31/2023 10:24:05 11/03/19 24 11/02/2023 CT, abdom en + pelvi s, w/ contr ast No observ ation record ed. [email or web address] [facility] [address] [place], [address], 11/03/2023 13:36:14 12/17/19 24 12/17/2023 XR, chest No observ ation record ed. [email or web address] [address] [place], [address], 12/17/2023 14:14:49 12/17/19 24 12/17/2023 CT, abdom en + pelvi s, w/o contr ast No observ ation record ed. [email or web address] [facility] (Medical Records) [address] [place], [address], 12/20/2023 08:52:21 08/18/19 25 08/17/2024 Foot and Ankle outco me score No observ ation record ed. [email or web address] Not Available 2024 11:08:15 09/07/19 25 09/06/2024 MAMMO , scree orestes, bilat eral No observ ation record ed. [email or web address] [facility] [address] [place] [address] [place], [address], 09/12/2024 12:55:54 10/25/19 25 10/24/2024 CT, chest , w/ contr ast No observ ation record ed. [email or web address] [facility] [address] [place], [address], 10/25/2024 19:39:59 10/31/19 25 10/27/2024 US, abdom en No observ ation record ed. [email or web address] [facility] [address] [place], [address], 11/14/2024 15:50:04 Result Notes Documentation Provider Name [...] (Negative) Lay letter mailed to patient WSN: [id number] Ordering Physician: Noah Miranda Dictated By: Sandra Villaseñor MD Dictated Date/Time: 08/30/23 4:38 pm Reviewed By: Sandra Villaseñor MD Signed By: Sandra Villaseñor MD Signed Date/Time: 08/30/23 4:38 pm Transcribed By: HEATHER Jewelry Racker Date/Time: 08/30/23 1:13 pm Birads: Patient Class: Outpatient Emili Martinez [facility] 08/31/2023 10:24:05 Problems Name Problem SNOMED Code Status Onset Date Resolution Date Notes Provider Name and Address Organization Details Recorded Time Wheezing symptom 953069434 Completed 12/30/2016 Peyman Healy MD [address] [facility] [address], [place], [address], [facility] 10:24:02 Acute sinusiti s [id number] Completed 12/30/2016 Peyman Healy MD [address] [facility] [address], [place], [address], [facility] 7 10:23:40 Acute asthma [id number] Completed 12/30/2016 Peyman Healy MD [address] [facility] [address], [place], [address], [facility] 7 10:24:04 Acute allergic reaction 966537351 Completed 12/30/2016 Peyman Healy MD [address] [facility] [address], [place], [address], [facility] 7 10:23:59 Fatigue 80300738 Completed 12/30/2016 Allan Apolinar GRISSOM [address], [place], [address], [facility] 5 09:10:48 Irritabl e bowel syndrome [id number] Active Susan Apolinar GRISSOM [address], [place], [address], [facility] 6 15:45:51 Acute pharyngi tis 697156632 Completed 12/30/2016 Peyman Healy MD [address], [place], [address], [facility] 7 10:24:09 Pain in calf 311098281 Completed 12/30/2016 Peyman Healy MD [address], [place], [address], [facility] 7 10:24:07 Synovial cyst of knee 273736670 Completed 12/30/2016 Peyman Healy MD [address], [place], [address], [facility] 7 10:23:54 Lumbar sprain 231397921 Completed 12/30/2016 Peyman Healy MD [address], [place], [address], [facility] 7 10:23:49 Sprain pelvic ligament 945983696 Completed 12/30/2016 Peyman Healy MD [address], [place], [address], [facility] [place] 7 10:23:46 Inflamma tion of sacroili ac joint 00861533 Completed 12/30/2016 Peyman Healy MD [address], [place], [address], [facility] 7 10:24:21 Administ ration of bacteria l and viral vaccine Completed 201001/16/2014 RECORDED 09/20/19 11 1:19PM BY BABITA ANDERSON PA-C, OFFICE VISIT Susan De Oliveira PA-C [address] [facility] [address], [place], [address], [facility] 6 15:45:51 Administ ration of bacteria l and viral vaccine Completed 201002/08/2014 RECORDED 09/20/19 11 1:19PM BY BABITA ANDERSON PA-C, OFFICE VISIT Susan De Oliveira PA-C [address], [place], [address], [facility] [place] 6 15:45:51 Administ ration of bacteria l and viral vaccine Completed 201002/09/2014 RECORDED 09/20/19 11 1:19PM BY BABITA ANDERSON PA-C, OFFICE VISIT Susan De Oliveira PA-C [address], [place], [address], [facility] [place] 6 15:45:51 Acute pharyngi tis [id number] Completed 201101/16/2014 RECORDED 05/13/20 12 3:41PM BY PAOLA MENCHACA MA, ISAIAHATI ON/LUIS Healy MD [address], [place], [address], [facility] [place] 7 10:24:09 Screenin g for malignan t neoplasm of cervix Completed 201101/16/2014 RECORDED 05/13/20 12 3:41PM BY PAOLA MENCHACA MA, ANNOTATI ON/LUIS De Oliveira PA-C [address], [place], [address], [facility] [place] 6 15:45:51 Epigastr ic pain [id number] Completed 201101/16/2014 IMPRESSI ON: PROBABLE GASTRITI S D/T RECENT NSAIDS AND PREDNISO NE TAPER, NO LONGER TAKING EITHER; RECORDED 05/13/20 12 3:41PM BY PAOLA MENCHACA MA, MARY CARMEN ON/ADDEN DUM Susan LICONA-C [address], [place], [address], [facility] [place] 6 15:45:51 Malaise and fatigue [id number] Completed 201101/16/2014 IMPRESSI ON: PER PT REPORT WITH SIG INCREASE D STRESS LEVELS RECENTLY . SEES THERAPIS T WEEKLY, REC INCREASI NG ZOLOFT DOSE. CHANGED FROM 25- 50 MG.; RECORDED 05/13/20 12 3:41PM BY PAOLA MENCHACA MA, MARY CARMEN ON/ADDEN DUM Susan LICONA-C [address], [place], [address], [facility] [place] 6 15:45:51 Low back pain [id number] Completed 201101/16/2014 RECORDED 05/13/20 12 3:41PM BY PAOLA MENCHACA MA, ANNOTATI ON/ADDEN DUM MILA Roberts [address] [facility] [address], [place], [address], [facility] [place] 2 10:36:13 Adult health examinat ion Completed 201101/16/2014 RECORDED 05/13/20 12 3:41PM BY PAOLA MENCHACA MA, ISAIAHATI ON/ADDEN DUM Diana martines MA null, [facility] 6 09:23:31 Shoulder joint pain [id number] Completed 201101/16/2014 STORY: R SIDED, X PAST TWO WEEKS WITHOUT HX OF TRAUMA OR INJURY RECENT OR PAST. WITH ASSOCIAT ED WEAKNESS , MINIMAL RESP TO NSAID. WILL CONTACT [facility] TO SEE IF THEY ARE ABLE TO SEE HER SOON, IF NOT WILL CHECK XRAYS WHILE AWAITING APPT.; RECORDED 05/13/20 12 3:41PM BY PAOLA MENCHACA MA, MARY CARMEN ON/ADDEN GEORGE Davis [facility] [address], [place], [address], [facility] [place] 6 15:45:51 Disorder of upper respirat ory system Completed 201101/16/2014 RECORDED 05/13/20 12 3:41PM BY PAOLA MENCHACA MA, MARY CARMEN ON/ADDEN DUM [facility] [address], [place], [address], [facility] [place] 6 15:45:51 Acute upper respirat ory infectio n [id number] Completed 201101/16/2014 IMPRESSI ON: 5 DAYS, NO FEVERS AND NO FOCAL SIGNS ON EXAM. LIKELY VIRAL, ADVISED RE REST, FLUIDS AND OTHER SX SUPPORT. CALL FOR WORSENIN G/PRN.; RECORDED 05/13/20 12 3:41PM BY PAOLA MENCHACA MA, MARY CARMEN ON/DILMAEN GEORGE Davis [facility] [address], [place], [address], [facility] [place] 6 15:45:51 Vernal conjunct ivitis [id number] Completed 201101/16/2014 RECORDED 05/13/20 12 3:41PM BY PAOLA MENCHACA MA, ANNOTATI ON/LUIS De [facility]ira [facility] [address], [place], [address], [facility] [place] 6 15:45:51 Acute pharyngi tis [id number] Completed 201102/08/2014 RECORDED 05/13/20 12 3:41PM BY PAOLA MENCHACA MA, MARY CARMEN ON/ADDEN DUM Peyman Healy MD [address], [place], [address], [facility] [place] 7 10:24:09 Screenin g for malignan t neoplasm of cervix Completed 201102/08/2014 RECORDED 05/13/20 12 3:41PM BY PAOAL MENCHACA MA, MARY CARMEN ON/DILMAEN GEORGE De Oliveira PA-C [address] [facility] [address], [place], [address], [facility] [place] 6 15:45:51 Epigastr ic pain [id number] Completed 201102/08/2014 IMPRESSI ON: PROBABLE GASTRITI S D/T RECENT NSAIDS AND PREDNISO NE TAPER, NO LONGER TAKING EITHER; RECORDED 05/13/20 12 3:41PM BY PAOLA MENCHACA MA, MARY CAREMN ON/ADDEN GEORGE De Oliveira PA-C [address] [facility] [address], [place], [address], [facility] [place] 6 15:45:51 Malaise and fatigue [id number] Completed 201102/08/2014 IMPRESSI ON: PER PT REPORT WITH SIG INCREASE D STRESS LEVELS RECENTLY . SEES THERAPIS T WEEKLY, REC INCREASI NG ZOLOFT DOSE. CHANGED FROM 25- 50 MG.; RECORDED 05/13/20 12 3:41PM BY PAOLA MENCHACA MA, MARY CARMEN ON/ADDEN DUM Susan De Oliveira PA-C [address] [facility] [address], [place], [address], [facility] [place] 6 15:45:51 Low back pain [id number] Completed 201102/08/2014 RECORDED 05/13/20 12 3:41PM BY PAOLA MENCHACA MA, MARY CARMEN ON/ADDEN DUM BRODY Roberts [address], [place], [address], [facility] [place] 2 10:36:13 Shoulder joint pain 162269169 Completed 201102/08/2014 STORY: R SIDED, X PAST TWO WEEKS WITHOUT HX OF TRAUMA OR INJURY RECENT OR PAST. WITH ASSOCIAT ED WEAKNESS , MINIMAL RESP TO NSAID. WILL CONTACT [facility] TO SEE IF THEY ARE ABLE TO SEE HER SOON, IF NOT WILL CHECK XRAYS WHILE AWAITING APPT.; RECORDED 05/13/20 12 3:41PM BY PAOLA MENCHACA MA, MARY CARMEN ON/ADDEN GEORGE LICONA-C [address], [place], [address], [facility] [place] 6 15:45:51 Disorder of upper respirat ory system Completed 201102/08/2014 RECORDED 05/13/20 12 3:41PM BY PAOLA MENCHACA MA, MARY CARMEN ON/ADDEN GEORGE LICONA-C [address], [place], [address], [facility] [place] 6 15:45:51 Acute upper respirat ory infectio n [id number] Completed 201102/08/2014 IMPRESSI ON: 5 DAYS, NO FEVERS AND NO FOCAL SIGNS ON EXAM. LIKELY VIRAL, ADVISED RE REST, FLUIDS AND OTHER SX SUPPORT. CALL FOR WORSENIN G/PRN.; RECORDED 05/13/20 12 3:41PM BY PAOLA MENCHACA MA, ANNOTATI ON/LUIS LICONA-C [address], [place], [address], [facility] [place] 6 15:45:51 Vernal conjunct ivitis [id number] Completed 201102/08/2014 RECORDED 05/13/20 12 3:41PM BY PAOLA MENCHACA MA, ANNOTATI ON/LUIS LICONA-C [address], [place], [address], [facility] [place] 6 15:45:51 Acute pharyngi tis [id number] Completed 201102/09/2014 RECORDED 05/13/20 12 3:41PM BY PAOLA MENCHACA MA, MARY CARMEN ON/ADDMOHAN Healy MD [address], [place], [address], [facility] [place] 7 10:24:09 Screenin g for malignan t neoplasm of cervix Completed 201102/09/2014 RECORDED 05/13/20 12 3:41PM BY PAOLA MENCHACA MA, MARY CARMEN ON/ADDEN DUM Susan De Oliveira PA-C [address], [place], [address], [facility] [place] 6 15:45:51 Epigastr ic pain 42374463 Completed 201102/09/2014 IMPRESSI ON: PROBABLE GASTRITI S D/T RECENT NSAIDS AND PREDNISO NE TAPER, NO LONGER TAKING EITHER; RECORDED 05/13/20 12 3:41PM BY PAOLA MENCHACA MA, MARY CARMEN ON/ADDEN DUM Susan LICONA-C [address], [place], [address], [facility] [place] 6 15:45:51 Malaise and fatigue [id number] Completed 201102/09/2014 IMPRESSI ON: PER PT REPORT WITH SIG INCREASE D STRESS LEVELS RECENTLY . SEES THERAPIS T WEEKLY, REC INCREASI NG ZOLOFT DOSE. CHANGED FROM 25- 50 MG.; RECORDED 05/13/20 12 3:41PM BY PAOLA MENCHACA MA, MARY CARMEN ON/ADDEN DUM Susan De Oliveira PA-C [address], [place], [address], [facility] [place] 6 15:45:51 Low back pain [id number] Completed 201102/09/2014 RECORDED 05/13/20 12 3:41PM BY PAOLA MENCHACA MA, ANNOTATI ON/ADDEN BRODY Ferro [address], [place], [address], [facility] 2 10:36:13 Shoulder joint pain [id number] Completed 201102/09/2014 STORY: R SIDED, X PAST TWO WEEKS WITHOUT HX OF TRAUMA OR INJURY RECENT OR PAST. WITH ASSOCIAT ED WEAKNESS , MINIMAL RESP TO NSAID. WILL CONTACT [facility] TO SEE IF THEY ARE ABLE TO SEE HER SOON, IF NOT WILL CHECK XRAYS WHILE AWAITING APPT.; RECORDED 05/13/20 12 3:41PM BY PAOLA MENCHACA MA, MARY CARMEN ON/ADDEN DUM Susan De Oliveira PA-C [address], [place], [address], [facility] [place] 6 15:45:51 Disorder of upper respirat ory system Completed 201102/09/2014 RECORDED 05/13/20 12 3:41PM BY PAOLA MENCHACA MA, MARY CARMEN ON/DILMAEN GEORGE LICONA-C [address], [place], [address], [facility] [place] 6 15:45:51 Acute upper respirat ory infectio n [id number] Completed 201102/09/2014 IMPRESSI ON: 5 DAYS, NO FEVERS AND NO FOCAL SIGNS ON EXAM. LIKELY VIRAL, ADVISED RE REST, FLUIDS AND OTHER SX SUPPORT. CALL FOR WORSENIN G/PRN.; RECORDED 05/13/20 12 3:41PM BY PAOLA MENCHACA MA, MARY CARMEN ON/LUIS DUM Susan LICONA-C [address], [place], [address], [facility] [place] 6 15:45:51 Vernal conjunct ivitis [id number] Completed 201102/09/2014 RECORDED 05/13/20 12 3:41PM BY PAOLA MENCHACA MA, MARY CARMEN ON/ADDMOHAN De Oliveira PA-C [address], [place], [address], [facility] [place] 6 15:45:51 Bronchit is [id number] Completed 201201/16/2014 RECORDED 07/28/19 13 1:45AM BY PAOLA MENCHACA MA, MARY CARMEN ON/ADDEN DUM Susan De Oliveira PA-C [address] [facility] [address], [place], [address], [facility] [place] 6 15:45:51 Bronchit is [id number] Completed 201202/08/2014 RECORDED 07/28/19 13 1:45AM BY PAOLA MENCHACA MA, ANNOTATI ON/ADDEN DUM Susan De Oliveira PA-C [address] [facility] [address], [place], [address], [facility] [place] 6 15:45:51 Bronchit is [id number] Completed 201202/09/2014 RECORDED 07/28/19 13 1:45AM BY PAOLA MENCHACA MA, ANNOTATI ON/ADDEN DUM Susan De Oliveira PA-C [address] [facility] [address], [place], [address], [facility] [place] 6 15:45:51 Follow-u p encounte r Completed 201201/16/2014 RECORDED 08/31/19 13 1:39PM BY RHONDA PETERSEN MA, ANNOTATI ON/ADDEN DUM Susan De Oliveira PA-C [address] [facility] [address], [place], [address], [facility] [place] 6 15:45:51 Disorder of rotator cuff Completed 201201/16/2014 IMPRESSI ON: SUSPECT SUPRASPI NATUS TENDON TEAR. 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 FURTHER F/U THROUGH [facility]PL[facility]. SHE WILL TAKE NSAID PRN AND ICE. MAY RETURN TO WORK.; RECORDED 08/31/19 13 1:39PM BY RHONDA PETERSEN MA, ANNOTCHARLENE ON/ADDEN DUM Susan De Oliveira PA-C [address] [facility] [address], [place], [address], [facility] [place] 6 15:45:51 Follow-u p encounte r Completed 201202/08/2014 RECORDED 08/31/19 13 1:39PM BY RHONDA PETERSEN MA, ANNOTATI ON/ADDEN DUM Susan De Oliveira PA-C [address], [place], [address], [facility] [place] 6 15:45:51 Disorder of rotator cuff Completed 201202/08/2014 IMPRESSI ON: SUSPECT SUPRASPI NATUS TENDON TEAR. 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 FURTHER F/U THROUGH [facility]. SHE WILL TAKE NSAID PRN AND ICE. MAY RETURN TO WORK.; RECORDED 08/31/19 13 1:39PM BY RHONDA PETERSEN MA, MARY CARMEN ON/ADDEN DUM Susan De Oliveira PA-C [address], [place], [address], [facility] [place] 6 15:45:51 Follow-u p encounte r Completed 201202/09/2014 RECORDED 08/31/19 13 1:39PM BY RHONDA PETERSEN MA, MARY CARMEN ON/ADDEN DUM Susan LICONA-C [address], [place], [address], [facility] [place] 6 15:45:51 Disorder of rotator cuff Completed 201202/09/2014 IMPRESSI ON: SUSPECT SUPRASPI NATUS TENDON TEAR. SHE SEES EMPLOYEE HE[employer] ON TU. FURTHER F/U THROUGH [facility]. SHE WILL TAKE NSAID PRN AND ICE. MAY RETURN TO WORK.; RECORDED 08/31/19 13 1:39PM BY RHONDA PETERSEN MA, MARY CARMEN ON/ADDEN DUM Susanyimi LICONA-C [address], [place], [address], [facility] [place] 6 15:45:51 Adult health examinat ion Completed 201303/18/2016 Diana martines MA [facility], [facility] 6 09:23:31 Anxiety state [id number] Completed 201312/30/2016 Peyman Healy MD [address] [facility] [address], [place], [address], [facility] [place] 7 10:23:44 Backache [id number] Completed 201301/16/2014 IMPRESSI ON: > 1 WEEK OF WORSENIN G BACK PAIN, UNABLE TO STAND UPRIGHT, LEGS GIVING OUT. PAIN NOW RADIATIN G INTO BUTTOCKS AND ANTERIOR THIGHS. MRI REVEALED SCHMORL' S NODES, OTHERWIS E NEG. TO PSS FOR FURTHER EVAL.; RECORDED 10/05/19 14 2:28PM BY DIANA NUNEZ MA, MARY CARMEN ON/LUIS RHODESC [address], [place], [address], [facility] [place] 6 15:45:51 Acute bronchit is [id number] Completed 201301/16/2014 IMPRESSI ON: LIKELY MOSTLY VIRAL SXS, HOWEVER DUE TO SMOKING STATUS AND RISK OF BACTERIA L BRONCHIT IS OR PNA TO TX WITH ABX. REST, FLUIDS, COUGH MED AT NIGHT PRN. CALL FOR WORSENIN G/PRN.; RECORDED 10/05/19 14 2:26PM BY DIANA NUNEZ MA, MARY CARMEN ON/LUIS De Oliveira PA-C [address], [place], [address], [facility] [place] 6 15:45:51 Cough [id number] Completed 201301/16/2014 IMPRESSI ON: POSSIBLE PNEUMONI A WITH THE FOCAL RALES. IF SHE DOES NOT IMPROVE WITH THE ABX SHE WILL GET A CXR.; RECORDED 10/05/19 14 2:26PM BY DIANA NUNEZ MA, MARY CARMEN ON/ADDMOHAN De Oliveira PA-C [address] [facility] [address], [place], [address], [facility] [place] 5 09:10:19 Tobacco dependen ce syndrome 13391101 Active 2013 Diana martines [place] null, [facility] 6 09:24:07 Tobacco dependen ce syndrome 94336359 Completed 201301/16/2014 RECORDED 10/05/19 14 2:27PM BY DIANA NUNEZ MA, ANNOTATI ON/ADDEN DUM Diana martines MA null, [facility] 6 09:24:07 Diarrhea 08282632 Completed 201301/16/2014 RECORDED 10/05/19 14 2:25PM BY DIANA NUNEZ MA, MARY CARMEN ON/ADDEN DUM Susan De Oliveira PA-C [address], [place], [address], [facility] [place] 6 15:45:51 Dysuria [id number] Completed 201312/30/2016 RECORDED 10/05/19 14 2:30PM BY DIANA NUNEZ MA, OFFICE VISIT Peyman Healy MD [address], [place], [address], [facility] [place] 7 10:24:17 Elevated blood-pr essure reading without diagnosi s of hyperten margaret 629128512 Completed 201305/03/2025 Allan De Oliveira PA-C [address], [place], [address], [facility] [place] 5 09:19:58 Gastroes ophageal reflux disease 136646815 Active 2013 Diana martines [place] null, [facility] 6 09:23:24 Headache 48030756 Completed 201301/16/2014 RECORDED 10/05/19 14 2:28PM BY DIANA NUNEZ MA, ANNOTATI ON/ADDEN DUM Susanyimi De Oliveira PA-C [address], [place], [address], [facility] [place] 6 15:45:51 Hyperlip idemia 52493565 Completed 201312/30/2016 BRODY Roberts [address] [facility] [address], [place], [address], [facility] [place] 2 14:05:28 Acute lymphade nitis 82008785 Completed 201301/16/2014 IMPRESSI ON: PT VERY ANXIOUS [...] 14 2:26PM BY DIANA NUNEZ MA, ANNOTATI ON/LUIS De Oliveira PA-C [address], [place], [address], [facility] [place] 6 15:45:51 Psoriasi s 0618294 Active 2013 Diana martines MA [facility] 6 09:24:04 Disorder of bursa of shoulder region 75094303 Completed 201305/03/2025 Allan De Oliveira PA-C [address], [place], [address], [facility] [place] 5 09:11:46 Temporom andibula r joint disorder 55146973 Completed 201305/03/2025 Allan De Oliveira PA-C [address], [place], [address], [facility] [place] 5 09:11:59 Candidal vulvovag initis 41014780 Completed 201301/16/2014 IMPRESSI ON: TENDS TO GET YEAST INFECTIO NS WITH ABX; RECORDED 10/05/19 14 2:26PM BY DIANA NUNEZ MA, MARY CARMEN ON/ADDMOHAN GEORGE Davis De Oliveira IN-C [address], [place], [address], [facility] [place] 6 15:45:51 Backache [id number] Completed 201302/08/2014 IMPRESSI ON: > 1 WEEK OF WORSENIN G BACK PAIN, UNABLE TO STAND UPRIGHT, LEGS GIVING OUT. PAIN NOW RADIATIN G INTO BUTTOCKS AND ANTERIOR THIGHS. MRI REVEALED SCHMORL' S NODES, OTHERWIS E NEG. TO PSS FOR FURTHER EVAL.; RECORDED 10/05/19 14 2:28PM BY DIANA NUNEZ MA, MARY CARMEN ON/LUIS Davis De Oliveira IN-C [address], [place], [address], [facility] [place] 6 15:45:51 Acute bronchit is [id number] Completed 201302/08/2014 IMPRESSI ON: LIKELY MOSTLY VIRAL SXS, HOWEVER DUE TO SMOKING STATUS AND RISK OF BACTERIA L BRONCHIT IS OR PNA TO TX WITH ABX. REST, FLUIDS, COUGH MED AT NIGHT PRN. CALL FOR WORSENIN G/PRN.; RECORDED 10/05/19 14 2:26PM BY DIANA NUNEZ MA, MARY CARMEN ON/ADDMOHAN GEORGE Davis De Oliveira IN-C [address], [place], [address], [facility] [place] 6 15:45:51 Cough [id number] Completed 201302/08/2014 IMPRESSI ON: PRODUCTI VE COUGH X 10D, + TOBACCO, WILL TX, ADVISE TO STOP SMOKING, RTC IF PERSISTE NT OR WORSENIN G SYMPTOMS .; RECORDED 10/05/19 14 2:26PM BY DIANA NUNEZ MA, MARY CARMEN ON/ADDEN DUM Allan De Oliveira IN-C [address], [place], [address], [facility] [place] 5 09:10:19 Diarrhea 46362070 Completed 201302/08/2014 RECORDED 10/05/19 14 2:25PM BY DIANA NUNEZ MA, MARY CARMEN ON/ADDEN DUM Susan De Oliveira PA-C [address], [place], [address], [facility] [place] 6 15:45:51 Headache 45152446 Completed 201302/08/2014 RECORDED 10/05/19 14 2:28PM BY DIANA NUNEZ MA, MARY CARMEN ON/ADDEN DUM Susan De Oliveira PA-C [address], [place], [address], [facility] [place] 6 15:45:51 Acute lymphade nitis 43214427 Completed 201302/08/2014 IMPRESSI ON: PT VERY ANXIOUS [...] [address], [place], [address], [facility] [place] 6 15:45:51 Candidal vulvovag initis 60174900 Completed 201302/08/2014 IMPRESSI ON: TENDS TO GET YEAST INFECTIO NS WITH ABX; RECORDED 10/05/19 14 2:26PM BY DIANA NUNEZ MA, MARY CARMEN ON/ADDEN DUM Susan De Oliveira PA-C [address], [place], [address], [facility] [place] 6 15:45:51 Backache [id number] Completed 201302/09/2014 IMPRESSI ON: > 1 WEEK OF WORSENIN G BACK PAIN, UNABLE TO STAND UPRIGHT, LEGS GIVING OUT. PAIN NOW RADIATIN G INTO BUTTOCKS AND ANTERIOR THIGHS. MRI REVEALED SCHMORL' S NODES, OTHERWIS E NEG. TO PSS FOR FURTHER EVAL.; RECORDED 10/05/19 14 2:28PM BY DIANA NUNEZ MA, MARY CARMEN ON/LUIS LICONA-C [address], [place], [address], [facility] [place] 6 15:45:51 Acute bronchit is 93111102 Completed 201302/09/2014 IMPRESSI ON: LIKELY MOSTLY VIRAL SXS, HOWEVER DUE TO SMOKING STATUS AND RISK OF BACTERIA L BRONCHIT IS OR PNA TO TX WITH ABX. REST, FLUIDS, COUGH MED AT NIGHT PRN. CALL FOR WORSENIN G/PRN.; RECORDED 10/05/19 14 2:26PM BY DIANA NUNEZ MA, MARY CARMEN ON/LUIS LICONA-C [address], [place], [address], [facility] [place] 6 15:45:51 Cough [id number] Completed 201302/09/2014 IMPRESSI ON: PRODUCTI VE COUGH X 10D, + TOBACCO, WILL TX, ADVISE TO STOP SMOKING, RTC IF PERSISTE NT OR WORSENIN G SYMPTOMS .; RECORDED 10/05/19 14 2:26PM BY IDANA NUNEZ MA, ANNOTATI ON/ADDMOHAN RHODESC [address], [place], [address], [facility] [place] 5 09:10:19 Diarrhea 62306697 Completed 201302/09/2014 RECORDED 10/05/19 14 2:25PM BY DIANA NUNEZ MA, MARY CARMEN ON/LUIS RHODESC [address], [place], [address], [facility] [place] 6 15:45:51 Headache 47638044 Completed 201302/09/2014 RECORDED 10/05/19 14 2:28PM BY DIANA NUNEZ MA, MARY CARMEN ON/ADDEN DUM Susan De Oliveira PA-C [address], [place], [address], [facility] [place] 6 15:45:51 Acute lymphade nitis 98269994 Completed 201302/09/2014 IMPRESSI ON: PT VERY ANXIOUS [...] CARMEN ON/ADDEN GEORGE De Oliveira PA-C [address], [place], [address], [facility] [place] 6 15:45:51 Candidal vulvovag initis 20481055 Completed 201302/09/2014 IMPRESSI ON: TENDS TO GET YEAST INFECTIO NS WITH ABX; RECORDED 10/05/19 14 2:26PM BY DIANA NUNEZ MA, MARY CARMEN ON/ADDMOHAN De Oliveira PA-C [address], [place], [address], [facility] [place] 6 15:45:51 Glucose level outside referenc e range 370033982 Completed 201312/30/2016 Peyman Healy MD [address], [place], [address], [facility] [place] 7 10:23:38 Anemia of pregnanc y 20575214 Completed 201512/30/2016 Peyman Healy MD [address] [facility] [address], [place], [address], [facility] [place] 7 10:23:35 Generali zed anxiety disorder 15877652 Active 2016 Diana martines [place] null, [facility] 7 11:53:56 Primary biliary cholangi tis 06627255 Active 2019 Noah Sanchez [facility] [address] [facility] [address], [place], [address], [facility] [place] 0 10:57:26 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 no other organs. nephrect sandoval 09/2019 Removal Reason: radical nephrect sandoval 09/2019 Lynda ortega [facility] 3 15:23:27 Neoplasm of left kidney [id number] 585927 Completed 202004/27/2023 Removal Reason: radical nephrect sandoval 09/2019 Lynda ortega [facility] 3 15:23:00 Low back pain 296387524 Active 2021 RECORDED 05/13/20 12 3:41PM BY PAOLA MENCHACA MA, ANNOTATI ON/ADDEN DUM Noah Sanchez [facility] [address] [facility] [address], [place], [address], [facility] [place] 2 10:36:13 Plantar fasciiti s of right foot 00694938177 194229 Completed 202105/03/2025 Allan De Oliveira PA-C [address] [facility] [address], [place], [address], [facility] [place] 5 09:11:38 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 27162680295 659696 Active 2021 Noah Sanchez, [employer] [address] [facility] [address], [place], [address], [facility] [place] 2 13:54:13 Hyperlip idemia 97144629 Active 2021 Noah Sanchez, [employer] [address] [facility] [address], [place], [address], [facility] [place] 2 14:05:27 Fatigue 82285445 Completed 202105/03/2025 Allan De Oliveira PA-C [address] [facility] [address], [place], [address], [facility] [place] 5 09:10:48 Impaired fasting glycemia 764397998 Active 2021 Noah Sanchez, [employer] [address] [facility] [address], [place], [address], [facility] [place] 2 14:05:59 Pain of left hip joint 68687937251 9100 Completed 202105/03/2025 Allan De Oliveira PA-C [address] [facility] [address], [place], [address], [facility] [place] 5 09:11:50 [facility] 977310032 [facility] 15:21:38 Cough [id number] Completed 202305/03/2025 IMPRESSI ON: PRODUCTI VE COUGH X 10D, + TOBACCO, WILL TX, ADVISE TO STOP SMOKING, RTC IF PERSISTE NT OR WORSENIN G SYMPTOMS .; RECORDED 10/05/19 14 2:26PM BY DIANA NUNEZ MA, ANNOTATI ON/ADDEN DUM Allan De Oliveira PA-C [address] [facility] [address], [place], [address], [facility] 09:10:19 COVID-19 [id number] Completed 202305/03/2025 Allan De Oliveira PA-C [address], [place], [address], [facility] 5 09:11:55 Fever [id number] Completed 202305/03/2025 Allan De Oliveira PA-C [address] [facility] [address], [place], [address], [facility] 5 09:10:27 Vitamin D deficien cy 71698332 Active 2023 BRODY Roberts [address] [facility] [address], [place], [address], [facility] 4 15:27:42 Acute right otitis media 538155799 Completed 202405/03/2025 Allan De Oliveira PA-C [address], [place], [address], [facility] 5 09:12:07 History of primary malignan t neoplasm of kidney 758837292 Active 2024 Allan De Oliveira PA-C [address] [facility] [address], [place], [address], [facility] 5 09:19:00 Bilatera l carpal tunnel syndrome [id number] 660290 Active 2024 Allan De Oliveira PA-C [address], [place], [address], [facility] 5 09:54:43 Problem Notes None recorded. Procedures Surgical History Date Name Laterality Status Provider Name and Address Organization Details Recorded Time 09/07/19 25 Most Recent Mammogram completed Emili Martinez [facility] 09/12/2024 12:55:45 07/14/19 23 Mammogram Screening completed Danielle Rodriguez [facility] 07/14/2022 16:24:36 05/05/20 22 fasciotomy of foot completed BRODY Roberts [address], [place], [address], [facility] 04/27/2023 09:18:39 09/07/19 20 radical nephrectomy completed Greta Glasgow [facility] 09/11/2019 15:28:04 09/07/19 20 Cancer Surgery completed Sherlyn Brown MA [facility] 03/27/2021 08:40:34 07/14/19 17 Date of Last Colonoscopy completed Diana slaughter MA [facility] 12/30/2016 10:13:20 07/14/19 17 Colonoscopy completed BRODY Roberts [address] [facility] [address], [place], [address], [facility] 02/14/2019 15:53:00 02/11/20 07 delivery completed Diana slaughter MA [facility] 02/14/2019 15:32:01 01/14/20 04 Caesarean Section completed Diana slaughter MA [facility] 02/14/2019 15:31:51 09/03/19 00 Tonsillectomy completed Sherlyn Brown MA [facility] 03/27/2021 08:40:34 Tubal Ligation completed Diana slaughter MA [facility] 11/21/2014 14:01:10 Tonsillectomy completed Sherlyn Brown MA [facility] 03/27/2021 08:40:34 Imaging Results None recorded. Procedure Notes None recorded. Medical Equipment None Reported. Allergies Allergen ID Allergen Name Allergen Category Reaction Reaction Severity Criticality Documentation Date Start Date Code Code System Note Provider Name and Address Organization Details Recorded Time amoxicill in medicatio n other Not available Not available 10/18/2014 723 RxNorm cause s yeast infec tion in the past GABRIELA Coburn [facility] 5 12:49:17 2838 Keflex medicatio n itching Not available Not available 01/16/20142013 99967 7 RxNorm Diana martines MA null, [facility] 5 12:49:17 2839 Product containin g penicilli n (product) medicatio n Not available Not available Not available 01/16/20142013 23960 8001 SNOMED REACT ION: AMOX, CAUSE S YEAST INFEC TIONS ; COMME NT: RECOR DED 10/04 2:30P M BY SRINIVAS HUERTA MA, OFFIC E VISIT ; Peyman Healy MD [address], [place], [address], [facility] 5 16:56:28 85659 Non-stero idal anti-infl ammatory agent (substanc e) medicatio n other moderate low 04/21/2022 39189 5008 SNOMED 1 BRODY Schrader [address] [facility] [address], [facility] [place], [address], [facility] 2 13:55:13 19253 cephalexi n medicatio n Not available Not available Not available 05/28/20252023 2231 RxNorm Not Available raquel - External Data Service - prod 5 10:26:59 Medications Name Sig Start Date Stop Date [...] oral route as needed for 90 days. 05/03 completed Not Available Not Available Not Available olopatadi ne 0.1 % eye drops [...] TABLET BY MOUTH EVERY DAY DIRECTED active 12.25 - 2 tabs qd Not Available Not Available Not Available hydroxyzi ne HCl 25 mg tablet [...] OF LIQUID AND DRINK BEFORE A MEAL 05/03 completed Not Available Not Available Not Available [...] BY MOUTH EVERY WEEK FOR 84 DAYS 05/03 completed Not Available Not Available Not Available Probiotic 1 tab daily orally 04/19 [...] Updated DateTime 07/06/2024 110/60 mm[Hg] BRODY Roberts [address] [address], [place], [address], [place] - [facility] 07/06/2024 11:27:04 Date Recorded Body height Body mass index (BMI) Body weight Heart rate Oxygen saturation Body temperature Systolic And Diastolic Provider Name and Address Organization Details Last Updated DateTime 5 158.75 cm 33.7 kg/m2 29555.7 7 g 62 /min 98 % 99.1 [degF] 158/92 mm[Hg] Maru Sewell MA [facility] 5 10:49:03 Date Recorded Body height Body mass index (BMI) Body weight Body temperature Oxygen saturation Heart rate Systolic And Diastolic Provider Name and Address Organization Details Last Updated DateTime 4 158.75 cm 34.6 kg/m2 81208.7 4 g 98.4 [degF] 98 % 85 /min 127/85 mm[Hg] Sydnie Flores MA [facility] 4 11:28:21 Date Recorded Body height Body mass index (BMI) Body weight Heart rate Oxygen saturation Body temperature Systolic And Diastolic Provider Name and Address Organization Details Last Updated DateTime 5 158.75 cm 35.3 kg/m2 58078.1 g 75 /min 99 % 98.7 [degF] 157/85 mm[Hg] Maru Sewell MA [facility] 5 09:35:02 Date Recorded Systolic And Diastolic Provider Name and Address Organization Details Last Updated DateTime 05/02/2024 120/66 mm[Hg] Noah Sanchez, [facility] [address], [address], [facility] 05/02/2024 16:01:22 Date Recorded Body height Body mass index (BMI) Body weight Heart rate Oxygen saturation Body temperature Systolic And Diastolic Provider Name and Address Organization Details Last Updated DateTime 4 158.75 cm 34 kg/m2 40511.9 6 g 72 /min 99 % 98.2 [degF] 147/79 mm[Hg] Maru Sewell MA [facility] 4 15:21:08 Date Recorded Body height Body mass index (BMI) Body weight Heart rate Oxygen saturation Body temperature Systolic And Diastolic Provider Name and Address Organization Details Last Updated DateTime 5 158.75 cm 35.3 kg/m2 56424.2 g 81 /min 99 % 98.2 [degF] 133/79 mm[Hg] Estefania aCllahan MA [facility] 5 08:43:23 Social History Question Answer Notes LastModified by Organizat ion Details LastModified Time Tobacco Smoking Status Former Smoker pt quit 09/2019 GABRIELA Waller, [facility] 03/26/2020 10:39:09 Do You Have An [...] 04/24/2015 When Did You Quit Smoking? 1-5yearssin atilio leigh [email or web address] Information not available 03/27/2021 Live Alone Or With Others? With Others 2 Children, 2 Dogs 2 Cats [facility] Information not available 05/03/2025 Do You Take Precautions To Prevent Distracted [...] Or Greater Than 100 Degrees Fahrenheit? No [email or web address] Information not available 03/26/2020 Are You Or Anyone In Your Household A Health Care Provider Or Emergency Responder? Yes Information not available 03/26/2020 To The Best Of Your Knowledge Have You Been In Close Proximity To Any Individual Who Tested Positive For COVID-19? No [email or web address] Information not available 03/26/2020 Have You Recently Traveled To A COVID-19 High Risk Area Or Gathering In The Last 10 Days? No [email or web address] Information not available 07/23/2020 What Was The Date Of Your Most Recent Tobacco Screening? 05/03/2025 Information not available 05/03/2025 How Many Children Do You Have? 2 Gabriel And Jas Information not available 12/30/2016 What Is Your Current Pack Years? 10packyears Information not available 05/03/2025 Do You Use Your Seat Belt Or Car Seat Routinely? Yes [email or web address] Information not available 03/27/2021 Seat Belts Used [...] 06/05/2015 How Much Tobacco Do You Smoke? 0.5 PPD Information not available 05/03/2025 Do You Use Sunscreen Routinely? Yes Information [...] not available 02/14/2019 Are you currently employed? Yes full-time Information not available 05/03/2025 Are you able to walk independently without assistance or assistive devices? YESWOREST Information not available 04/23/2022 Are you able to care for yourself independently? 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 [employer] Information not available 05/03/2025 Do you or have you ever used [...] available 10:40:59 Father Malignant neoplasm of lung Not available 03/27 08:40:16 Father Kidney disease [email or web address] Not available 03/27 08:40:16 Mother Malignant neoplasm of uterus molar pregna ncy- hyster ectomy Not available 04/23/2022 10:40:59 Mother Opioid dependence Not available 04/23 10:40:59 Mother Substance abuse [email or web address] Not available 03/27 08:40:16 Mother Seizure disorder [email or web address] Not available 03/27 08:40:16 Mother Osteoporosis [email or web address] Not vasile ilable 03/27/2021 08:40:16 Mother Disorder of thyroid gland Not available 2021 10:40:59 Brother Essential hypertension 45 possib ly Not available 04/23/2022 10:40:59 Brother Harmful pattern of use of alcohol [email or web address] Not available 2017 15:39:14 Brother Depressive disorder Not available 03/27 08:40:16 Maternal Grandfather Opioid dependence Not available 04/23 10:40:59 Unspecified Relation Substance abuse [email or web address] Not available 03/27 08:40:16 Son Allergy Not [...] Immunizations Vaccine Type Date Status Note Provider Jens e and Address Organization Details Recorded Time Influenza, split virus, trivalent, preservative 6 completed GABRIELA Pimentel [facility] 12/30/2016 10:11:22 Influenza, split virus, quadrivalent, preservative 8 completed Paola Menchaca MA [facility] 09/02/2018 10:03:42 Influenza, split virus, quadrivalent, preservative 9 completed GABRIELA Valadez, [facility] 06/14/2019 09:27:56 COVID-19, mRNA, LNP-S, PF, 100 mcg/0.5mL dose or 50 mcg/0.25mL dose 0 [facility]12[facility] 10:18:38 Influenza, split virus, quadrivalent, PF 1 [facility] 09/12/2021 10:18:38 COVID-19, mRNA, LNP-S, PF, 100 mcg/0.5mL dose or 50 mcg/0.25mL dose 1 [facility] 09/12/2021 10:18:38 Influenza, split virus, quadrivalent, PF 7 completed GABRIELA Herbert, [facility] 09/12/2021 10:18:39 Influenza, split virus, trivalent, preservative 5 [facility] 12/24/2021 10:23:35 Influenza, split virus, quadrivalent, PF 3 [facility] 07/13/2023 11:16:35 Influenza, split virus, trivalent, PF 4 completed Not Available [facility] 05/03/2025 08:38:15 Influenza, split virus, trivalent, PF 5 completed Not Available [facility] 05/03/2025 08:38:15 Tdap 1 completed Not Available [facility] 01/16/2014 13:38:10 Influenza, split virus, quadrivalent, PF 0 completed GABRIELA Waller, [facility] 03/26/2020 10:48:58 Tdap 1 completed Unique Melo MA null, [facility] 03/27/2021 10:06:49 Influenza, split virus, quadrivalent, PF 2 completed Noah Sanchez [facility] [address], [address], [facility] 04/23/2022 11:29:33 Past Encounters Encounter ID Performer Location Encounter Start Date Encounter Closed Date Diagnosis/Indication Diagnosis SNOMED-CT Code Diagnosis ICD10 Code Diagnosis IMO Codes Diagnosis Note [id number] 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 [address] [facility] [place] [address] 05/07/2009 00:00:00 [id number] 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 [address] [facility] [place] [address] 04/03/2010 00:00:00 [id number] 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 [address] [facility] [place] [address] 04/30/2010 00:00:00 [id number] 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 [address] [facility] [place] [address] 08/22/2010 00:00:00 [id number] 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 [address] [facility] [place] [address] 09/19/2010 00:00:00 [id number] 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 [address] [facility] [place] [address] 11/17/2010 00:00:00 [id number] 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 [address] [facility] [place] [address] 06/02/2011 00:00:00 [id number] 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 [address] [facility] [place] [address] 09/15/2011 00:00:00 [id number] 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 [address] [facility] [place] [address] 10/29/2011 00:00:00 [id number] 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 [address] [facility] [place] [address] 11/11/2011 00:00:00 [id number] 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 [address] [facility] [place] [address] 05/13/2012 00:00:00 [id number] 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 [address] [facility] [place] [address] 08/31/2012 00:00:00 [id number] 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 [address] [facility] [place] [address] 02/07/2013 00:00:00 [id number] 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 [address] [facility] [place] [address] 04/12/2013 00:00:00 [id number] 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 [address] [facility] [place] [address] 08/30/2013 00:00:00 [id number] 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 [address] [facility] [place] [address] 10/04/2013 00:00:00 [id number] Peyman Healy MD Main Office [address] [address] [place] [address] 03/27/2014 09:46:56 03/27/2014 10:49:27 Wheezing symptom 785318731 Tobacco de pendence syndrome 72697702 [id number] Peyman Healy MD Main Office [address] [address] [place], [place] [address] 09/14/2014 14:46:39 09/14/2014 15:17:09 Acute sinusitis 40718039 Tobacco de pendence syndrome 58530215 [id number] Peyman Healy MD Main Office [address] [address] [place], [place] [address] 10/18/2014 12:40:42 10/18/2014 13:27:05 Acute asthma 150694776 Acute zhao rgic reaction 411052641 Tobacco de pendence syndrome 02595080 [id number] Peyman Healy MD Main Office [address] [address] [place], [place] [address] 11/21/2014 13:28:44 11/21/2014 14:47:30 Adult health examination 397409496 Hyperlipidemia 66757618 Fatigue 76251242 Tobacco de pendence syndrome 01974778 Irritable bowel syndrome 60931237 Screening for malignant neoplasm of breast 170042930 Screening for malignant neoplasm of cervix 347005080 Body mass index 25-29 - overweight 247541261 [id number] Livan Fatima MD Main Office [address] [address] [place] [address] 12/29/2014 09:25:24 12/29/2014 09:50:58 Acute pharyngitis 241698098 probable viral infection; no role for abx. Continue with symptomati c treatment. [id number] Peyman Healy MD Main Office [address] [address] [place] [address] 04/24/2015 13:09:18 04/24/2015 15:20:58 Acute sinusitis 82346516 J01.90 Anxiety state 813490598 F41.1 [id number] Peyman Healy MD Main Office [address] [address] [place] [address] 06/05/2015 14:02:13 06/05/2015 15:35:44 Anxiety state 377275867 F41.1 Pain in calf 733333776 M 79.669 [id number] Susan De Oliveira PA-C Main Office [address] [address] [place] [address] 07/23/2015 10:47:52 07/23/2015 12:10:04 Lumbar sprain 457365160 S33.9XXA L. lumbar sparin acute. Can not tolerate NSAIDs. Will start Prednisone taper , Flexeril at night only and Tramadil for pain. Moist heat applicatio ns, gently back stretches. Stay back from work for few days. Sprain pel elana ligament 517900208 S33.9XXA [id number] Peyman Healy MD Main Office [address] [address] [place] [address] 12/25/2015 13:17:42 12/25/2015 14:58:37 Anxiety state 346305870 F41.1 Tobacco de pendence syndrome 37980941 F17.290 Reviewed motivation s for smoking cessation. Advised about benefits of stopping smoking. Hyperlipidemia 13421784 E78.5 Adult heal th examination 078353174 Z00.00 Fatigue 29609200 R53.83 Body mass index 25-29 - overweight 713448067 Z68.29 Inflammati on of sacroiliac joint 41439038 M46.1 [id number] Peyman Healy MD Main Office [address] [address] [facility] [address] 03/18/2016 09:15:07 03/18/2016 10:32:41 Irritable bowel syndrome 96845403 K58.9 Diarrhea 02390112 R19.7 Knee pain 16577585 M25.5 61 Medial joint line tenderness with positive Malathi test. Rule out meniscus injury [id number] Susan De Oliveira PA-C Main Office [address] [place] [address] 08/07/2016 10:37:00 08/07/2016 11:16:42 Upper respiratory infection 31233681 J06.9 PT. will use Mucinex DM or D BID for congestion and cough , nasal saline solution BID and FLonase she has at home qd. Rest and fluids. PT. will call office next week if worsening of symptoms , fever, colored secretions or facial pain. [id number] Peyman Healy MD Main Office [address] [place] [address] 12/30/2016 10:04:42 12/30/2016 11:06:58 Adult health examination 553066284 Z00.00 Tobacco de pendence syndrome 11654853 F17.290 Reviewed motivation s for smoking cessation. Advised about benefits of stopping smoking. Elevated blood-pressure reading without diagnosis of hypertension 554433760 R03.0 Had elevated BP under propafol for colonoscop y Anxiety state 782706237 F41.1 STable on medication Hyperlipidemia 93838606 E78.5 Fatigue 44546872 R53.83 Hyperhidrosis 939338802 R61 Nasal vestibulitis 11811 000 J34.89 Body mass index 25-29 - overweight 153244804 E66.3 Z68.25 [id number] Allan De Oliveira PA-C Main Office [address] [place] [address] 09/15/2017 13:21:04 09/15/2017 14:12:54 Acute sinusitis 35839123 J01.90 pt requested diflucan - rec add probiotic supp qd soniya for her IBS c/o - hopefully not require levsin as much. also advised pt could use bactroban in nares to help nasal lining sxs as well for a few days [id number] Peyman Healy MD Main Office [address] [facility] [address] [place] [address] 02/11/2018 15:00:11 02/11/2018 16:22:57 Adult health examination 101817294 Z00.00 Tobacco de pendence syndrome 21205182 F17.290 Reviewed motivation s for smoking cessation. Advised about benefits of stopping smoking. Generalize d anxiety disorder 75724367 F41.1 Irritable bowel syndrome 42950213 K58.9 Body mass index 25-29 - overweight 211883194 E66.3 Z68.25 Hyperlipidemia 73784587 E78.5 Fatigue 29977832 R53.83 Greater tr ochanteric pain syndrome 6879045 M70.62 Neck pain 01411108 M54.2 Inflammati on of sacroiliac joint 58383278 M46.1 [id number] Allan De Oliveira PA-C Main Office [address] [address] [place] [address] 04/19/2018 10:32:33 04/19/2018 12:00:32 Needs influenza immunization 482851665 Z23 had flu shot last week -- flu shot NOT given today Cough 52141301 R05 suspect early pna - will check cxr and give abx proactivel y Infective pneumonia 3123 23605 J18.9 rec probiotics while on abx, also rec proair and peace -- see below [id number] Sim Garcia MD Main Office [address] [facility] [address] [place] [address] 09/02/2018 09:42:20 09/02/2018 10:35:38 Acute pharyngitis 851228956 J02.9 Based on risk score and recent exposure will cover for strep. D/C if culture is negative. Supportive /symptomat ic tx advised in meantime. Call inb/worse or if new symptoms develop. [id number] Livan Fatima MD Main Office [address] [address] [place] [address] 02/14/2019 15:20:06 02/14/2019 16:13:10 Adult health examination 276394317 Z00.00 HM UTD, will check blood work. Tobacco de pendence syndrome 56420274 F17.290 Reviewed present motivation s for smoking cessation. Patient reports that being ready to attempt smoking cessation. Discussed options for support. 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 Call if sx persist, regular TC sent out Eustachian tube disorder 87134959 H69.93 gargles, hydration try flonase once a day, call if ear pain persists; no evidence of otitis media today. [id number] Livan Fatima MD Main Office [address] [address] [place] [address] 03/26/2020 10:23:16 03/26/2020 11:21:36 Adult health examination 469291260 Z00.00 HM UTD, will check blood work. Needs infl uenza immunization 178307994 Z23 Elevated blood-pressure reading without diagnosis of hypertension 186992792 R03.0 Irritable bowel syndrome 30321930 K58.9 Body mass index 25-29 - overweight 887116952 Z68.28 E66.3 Screening for cardiovascular system disease 653089784 Z13.6 Major depr ession single episode, in partial remission 41430455 F32.4 [id number] Barbara dumont MD Main Office [address] [facility] [address] [facility] [place] [address] 05/27/2020 10:30:41 05/27/2020 11:38:57 Strain of muscle of right shoulder 7733308659 9937058 S46.911A check xray of shoulder, rest, no sling, keep gentle ROM if xray negative, can use OTC pain reliever, Start PT belen. If worsening to call. Out of work for 1 week, if needs more time will call Use ice x 24-48 hours, then ice/heat. Inflammati on of sacroiliac joint 37701266 M46.1 Rest, stretching , change position frequently , will call if any worsening sx. [id number] Livan Fatima MD Main Office [address] [place] [address] 07/23/2020 14:49:33 07/23/2020 15:25:15 Otalgia 08060505 H92.02 Left ear pain but it hurts if she swallows, turns her head, yawns ect. suspect related to lymph node. Cervical lymphadenopathy 673993740 R59.0 left anterior cervical node tenderness , swelling. causes ear pain. Exposure t o viral disease 3629634800 99188 Z03.818 had temp 99.5 today. has had chills/ feeling hot and cold, very fatigued. she did have moderna covid vaccine 07/03 and had side effects to that which have resolved. 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 [address] [facility] [place] [place] [address] 09/27/2020 12:55:59 09/27/2020 13:27:31 Pain of right ankle joint 3676223018 1646619 M25.571 Pain in the medial malleus on exam, the area was swollen.Ad vised rest, ice elevation and compressio n with ADRIEL.She meets grand ronde tribes criteria of Xray, will get Xray.Advis ed [...] as well, Patient is establishe d with [facility] and I advised her to call. Plantar fa sciitis of left foot 5414481489 7248065 M72.2 Patient has tried exercises and Boot at night with no improvemen t.Will refer to podiatry to consider injections . Patient is establishe d with [facility] and I advised her to call for apt. Pain in left foot 389549 6415 14479 M79.672 DDx include neuroma, nerve entrapment .Patient [...] she has. Patient is establishe d with [facility] and I advised her to call.No xray at this time as she does not meet grand ronde tribes criteria for xray. [id number] Livan Fatima MD Telehealt [facility] [address] [facility] [address] [place] [address] 10/02/2020 11:39:51 10/02/2020 15:16:28 Diarrhea 50656555 R19.7 has resolved but nausea persists. Abdominal pain 01803784 R10.9 Exposure t o viral disease [id number] 84468 Z03.818 Nausea 399663435 R11.0 use as needed Primary bi liary cholangitis 58255480 K74.3 on ursodiol taking med as directed. Renal cell carcinoma [address]158[address] C64[address] in October. [id number] Livan Fatima MD Main Office [address] [address] [place] [address] 03/27/2021 08:31:51 03/27/2021 09:24:31 Adult health examination 417286274 Z00.00 HM UTD, has bloodwork regularly for her kidney/ ct scans Elevated blood-pressure reading without diagnosis of hypertension 754390793 R03.0 BP normal manually Renal cell carcinoma 702 104609 C64.9 Followed by urology, 1 kidney Primary bi liary cholangitis 99020161 K74.3 on ursodiol taking med as directed. Generalize d anxiety disorder 97958821 F41.1 on sertraline , considerin g weaning off. she will go to 25mg for now through the winter Administra tion of viral vaccine 43908354 Z23 [id number] Livan Fatima MD Main Office [address] [address] [place] [address] 03/31/2021 13:28:41 03/31/2021 14:16:10 Cellulitis of left upper limb [id number] 8226966 L03.114 NSAIDs for pain and swelling and ice. May not be an infection but instead may be a local reaction to the immunizati on. She will call if she develops diarrhea because of her h/o c. dif. [id number] Livan Fatima MD Main Office [address] [address] [place] [address] 09/12/2021 10:16:27 09/12/2021 10:46:05 Low back pain 795854942 M54.50 low back pain, will tx with prednisone burst and flexeril as needed. no driving or alcohol with med. Heat to area as needed. stretching as tolerated. if sx persist will need imaging. Call or return for worsening or concerns. History of primary malignant neoplasm of kidney 082519969 Z85.528 renal cell carcinoma, left kidney. nephrectom y. Primary bi liary cholangitis 95424819 K74.3 on ursodiol taking med as directed. [id number] [facility] [address] [address] [place] [address] 12/24/2021 09:23:33 12/24/2021 11:19:34 Cough 29825928 R05.1 Pneumonia 399395171 J18. 9 will send over Zpak to [...] no role for CXR at this time [id number] Livan Fatima MD Main Office [address] [place] [address] 04/21/2022 13:10:00 04/21/2022 14:08:51 Pre-surgery evaluation 773987406 Z01.818 Having right topaz plantar fasciotomy with [...] surgery as scheduled. Renal cell carcinoma 702 365910 C64.9 Followed by urology, 1 kidney Elevated blood-pressure reading without diagnosis of hypertension 393263897 R03.0 BP normal manually Primary bi liary cholangitis 34931334 K74.3 on ursodiol taking med as directed. Fibromatos is of plantar fascia of right foot 8442018077 7190118 M72.2 having fasciotomy Hyperlipidemia 43695932 E78.5 Fatigue 88383613 R53.83 Impaired f asting glycemia 214871226 R73.01 Generalize d anxiety disorder 79532337 F41.1 she will go to 25mg daily x 2 weeks. [id number] Livan Fatima MD Main Office [address] [place] [address] 04/23/2022 10:39:54 04/23/2022 11:22:36 Adult health examination 229425306 Z00.00 HM due for mammo and pap- she will schedule, colonoscop y due in 2026. Flu shot today. Bloodwork was done this morning, pending results. Needs infl uenza immunization 275473711 Z23 Fibromatos is of plantar fascia of right foot 5552432913 0273093 M72.2 having fasciotomy Primary bi liary cholangitis 94628245 K74.3 on ursodiol taking med as directed. Renal cell carcinoma 702 156116 C64.9 Followed by urology, 1 kidney Generalize d anxiety disorder 52968086 F41.1 Continue sertraline 25mg daily x 2 weeks, then cut tab in half and take 12.5mg daily x 2 weeks.then will take 6.25mg daily x 1 week then stop medication .If any trouble stopping med please call/ return Pain of le ft hip joint 2133024459 54072 M25.552 [id number] Susan De Oliveira PA-C Main Office [address] [place] [address] 03/16/2023 10:12:04 03/16/2023 10:58:48 Viral upper respiratory tract infection 650705943 J06.9 Pt. is advised to increase hydration and rest, add otc decongesta nts such as Delsym, diphenhydr amine. Nasal saline or saline rinse. [id number] Livan Fatima MD Main Office [address] [place] [address] 04/27/2023 08:48:38 04/27/2023 09:46:23 Adult health examination 393931694 Z00.00 HM- UTD, pap, mammo and colo UTD. Fibromatos is of plantar fascia of right foot 9058471271 1652017 M72.2 had fasciotomy last May, still has pain and now has chronic tendinitis . Primary bi liary cholangitis 66648205 K74.3 on ursodiol taking med as directed. Generalize d anxiety disorder 01423298 F41.1 Continue sertraline 25mg daily Hyperlipidemia 94280697 E78.5 Impaired f asting glycemia 693079901 R73.01 Fatigue 70848745 R53.83 Body mass index 30+ - obesity 925029826 Z68.34 Elevated blood-pressure reading without diagnosis of hypertension 085697567 R03.0 BP manually 136/80, thi is elevated for her and was elevated at her last visit. She will work on cutting back on sodium, drinking more water and starting to walk again. F/U in 1 month for recheck. History of primary malignant neoplasm of kidney 821565331 Z85.528 Followed by urology, 1 kidney, had CT scan in October Obesity 758641875 E66.9 [id number] Livan Fatima MD Main Office [address] [facility] [address] [place] [address] 07/13/2023 11:12:57 07/13/2023 11:59:34 Fever 968023012 R50.9 + covid, continue tylenol or nyquil/ dayquil Cough 64862242 R05.9 COVID-19 571226614 U07.1 Covid positive in office, this is [...] any resp distress, severe or worsening sx. [id number] Livan Fatima MD Main Office [address] [facility] [address] [place] [address] 05/02/2024 15:16:10 05/02/2024 15:45:05 Adult health examination 411954126 Z00.00 HM- UTD, pap, mammo and colo UTD. Primary bi liary cholangitis 62122994 K74.3 on ursodiol taking med as directed. History of primary malignant neoplasm of kidney 264573781 Z85.528 Followed by urology, 1 kidney, had CT scan in October- all good. Generalize d anxiety disorder 23693692 F41.1 Continue sertraline 25mg daily Hyperlipidemia 50921068 E78.5 Impaired f asting glycemia 975321512 R73.01 Fatigue 98885493 R53.83 Elevated blood-pressure reading without diagnosis of hypertension 335767288 R03.0 BP manually 120/66 Obesity 552239044 E66.9 Body mass index 30+ - obesity 117182066 Z68.34 Vitamin D deficiency 347 46179 E55.9 [id number] Livan Fatima MD Main Office [address] [place] [address] 07/06/2024 10:28:25 07/06/2024 11:31:13 Cough 00555963 R05.9 declines cough med currently, neg flu and covid. +OM Acute righ t otitis media 326806674 H66.91 Hydration, rest, tylenol as needed, tea with honey. clarithrom ycin as directed. [id number] Livan Fatima MD Main Office [address] [place] [address] 11/28/2024 09:29:30 11/28/2024 10:24:34 Postviral fatigue syndrome 02801885 G93.31 88357 This is probably secondary to her prior COVID infection but will do a w/u to r/o other etiologies . [id number] Sim Garcia MD Main Office [address] [address] 05/03/2025 08:36:04 05/03/2025 09:41:05 Adult health examination 301471083 Z00.00 colon utd - next 1.27mammo, pap utd Vitamin D deficiency 347 15104 E55.9 Primary bi liary cholangitis 96140132 K74.3 stable, cont med as dir, cont f/u c gi Psoriasis 4903900 L40.9 stable, cont f/u c derm q yr Fatigue 60321823 R53.83 0970529 Impaired f asting glycemia 918712438 R73.01 891117 Hyperlipidemia 13415459 E78.5 Generalize d anxiety disorder 99196315 F41.1 stable, cont med as dir, cont f/u c therapist History of primary malignant neoplasm of kidney 586789912 Z85.528 62472862 stable, cont f/u c uro q yr Bilateral carpal tunnel syndrome 7513863342 9827605 G56.03 609851 pending B sx - [facility] Body mass index 30+ - obesity 900496618 E66.9 Z68.35 cont f/u c nutritioni st, walk, plenty of sleep - but naps a lot - see snoring below Snoring 61562899 R06.83 24699 will get sleep med eval Health Concerns Section Related Observation LastModified by Organization Detai ls LastModified Time None Recorded Concern Status LastModified by Organization Details LastModified Time None Recorded Advance Directives Directive Y: signed on 11/21/2014 Payers Insurance Date Sequence Insurance Name Policy Number Policy Ward Covered Member ID Ward Member ID Guarantor Name 03/15/2023 1 D[employer]see BASTROP - [facility] [id number] Tere Junior [id number] Tere Junior 05/08/2025 1 [employer] [facility] [id number] Tere Junior [id number] Tere Junior Notes Date Note Type Note Provider Name and Address Organization Details Recorded Time 07/13/2023 text/html Generic HPI TemplateReported by PatientSx started wednesday- body aches, couldn't sleep, chills, fever, congestion, couhg with production, slight SOB with activity, no N/V/D, no sore throat, ear pain, no headache. neg covid- this morning.Neg flu test here.Taking nyquil and dayquil with some relief. - feels like chest hurts. BRODY Roberts [address] [address], [place], [address], [facility] 07/13/2023 12:14:09 05/02/2024 text/html Generic HPI TemplateReported by PatientPresents for PE,No concerns but BP is high. No headaches, sometimes does get chest discomfort at random times, no palpitationshas lost 4 lbs and 13 inches since January. is having hot flashes, night sweats, mood changes BRODY Roberts [address] [facility] [address], [place], [address], [facility] 05/02/2024 16:02:35 07/06/2024 text/html Generic HPI TemplateReported by PatientSx started Wednesday- body aches, chills, low grade temp, cough, dry for now but feels congestion, nasal congestion- yellow, sinus pressure/ pain, teeth pain, ear pain and blocked- bilateral, no N/V/D.No sick contacts BRODY Roberts [address] [address], [place], [address], [facility] 07/06/2024 12:04:20 11/28/2024 text/html ROS as noted [...] on her body recently. Livan Fatima MD [address] [address], [place], [address], [facility] 11/28/2024 10:24:26 05/03/2025 text/html Generic HPI TemplateReported by Patient here for annual pe. Allan De Oliveira PA-C [address] [address], [place], [address], [facility] 05/06/2025 09:55:57 OBGyn Episode No OBEpisode recorded.
--- OUTSIDE RECORDS SUMMARY | 2025-06-20 19:01 | XMS_ITS | Continuity of Care Document ---
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 Plan of Treatment Reminders Order Date Submit Date Provider Last Modified By Organization Details Last Modified Time Details Appointments FOLLOW UP 30MIN 2025 04:00P M Conrado De Oliveira PAKatarzyna Not available Not available Not available Lab lipid panel, serum 2024 [facility] (Lab), [address] [place] [address], [id number], 05/03/2025 09:30:54 CMP, serum or plasma 2024 025 [facility] (Lab), [address] [place] [address], [id number], 06/16/2025 10:24:03 TSH, ultra-sen sitive, serum 2024 025 [facility] (Lab), [address] [place] [address], [id number], 05/03/2025 09:30:55 CBC w/ auto diff 2024 [facility] (Lab), [address] [place], [address], 05/03/2025 09:30:54 HbA1c (hemoglob in A1c), blood 2024 [facility] (Lab), [address] [place], [address], 05/03/2025 09:30:55 vitamin D, 25-hydrox y, total, serum 2024 [facility], [address], [place], [address], 05/03/2025 09:29:47 Referral sleep medicine referral 2024 [facility] [address] [place] [address], [place], [address], 05/09/2025 11:48:08 nutrition ist/dieti ranjan referral 2024 Not available 05/03/2025 11:39:29 Procedures None recorded. Surgeries None recorded. Imaging None recorded. Medication Orders None recorded. 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 Excess Body Weight Loss % 5 Not available Not available Not available Pt advised and agrees to work on [...] By Organization Details Last Modified Time 05/03/2025 [id number] Well Visit, Ages 18 to 65: Care Instructions pmadden Not available 05/03/2025 09:29:45 Starting a Weight-Loss Plan: Care Instructions pmadden Not available 05/03/2025 09:29:45 Nutrition Referral and Weight Management Follow-up Information pmadden Not available 05/03/2025 09:29:45 Medications (OTC , herbal therapies, supplements) reviewed and reconciled with patient and or caregiver, including potential side effects, drug interactions, instructions, and the consequences of not taking medication. Reviewed potential barriers to medication adherence, such as side effects from medication or cost of medication. pmadden Not available 05/03/2025 09:19:15 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 Take Away Man/dietitian Refer ral for Body mass index 30+ - obesity Referring Physician: Conrado De Oliveira, Internal Medicine, Encounter Date: 05/03/2025 Sleep Medicine Referral for Snoring Referring Physician: Conrado De Oliveira, Internal Medicine, Encounter Date: 05/03/2025 Results Created Date Observation Date Name Description Value Unit Range Abnormal Flag Note LastModifiedBy Organization Detail LastModifiedTime Result Notes None recorded. Problems Name Problem SNOMED Code Status Onset Date Resolution Date Notes Provider Name and Address Organization Details Recorded Time Wheezing symptom [id number] Completed 12/30/2016 Peyman Healy MD [address] [facility][[address]] [address], [place], [address], [facility] 7 10:24:02 Acute sinusiti s 75251508 Completed 12/30/2016 Peyman Healy MD [address] [facility][[address]] [address], [place], [address], [facility] 7 10:23:40 Acute asthma 933754618 Completed 12/30/2016 Peyman Healy MD [address] [facility][[address]] [address], [place], [address], [facility] 7 10:24:04 Acute allergic reaction 127818613 Completed 12/30/2016 Peyman Healy MD [address] [facility][[address]] [address], [place], [address], [facility] 7 10:23:59 Fatigue 27987696 Completed 12/30/2016 Conrado De Oliveira PA-C [address] [facility], [place], [address], [facility] 5 09:10:48 Irritabl e bowel syndrome 97788935 Active Susan De Oliveira PA-C [address] [facility]] [address], [place], [address], [facility] 6 15:45:51 Acute pharyngi tis 633274366 Completed 12/30/2016 Peyman Healy MD [address] [facility]] [address], [place], [address], [facility] 7 10:24:09 Pain in calf 736208034 Completed 12/30/2016 Peyman Healy MD [address] [facility], [place], [address], [facility] 7 10:24:07 Synovial cyst of knee 305036309 Completed 12/30/2016 Peyman Healy MD [address] [facility], [place], [address], [facility] 7 10:23:54 Lumbar sprain 562992988 Completed 12/30/2016 Peyman Healy MD [address] [facility], [place], [address], [facility] 7 10:23:49 Sprain pelvic ligament 780902734 Completed 12/30/2016 Peyman Healy MD [address] [facility], [place], [address], [facility] 7 10:23:46 Inflamma tion of sacroili ac joint 43494808 Completed 12/30/2016 Peyman Healy MD [address] [facility]] [address], [place], [address], [facility] 7 10:24:21 Administ ration of bacteria l and viral vaccine Completed 201001/16/2014 RECORDED 09/20/19 11 1:19PM BY BABITA ANDERSON PA-C, OFFICE VISIT Susan De Oliveira PA-C [address] [facility]] [address], [place], [address], [facility] 6 15:45:51 Administ ration of bacteria l and viral vaccine Completed 201002/08/2014 RECORDED 09/20/19 11 1:19PM BY BABITA ANDERSON PA-C, OFFICE VISIT Susan De Oliveira PA-C [address] [facility], [place], [address], [facility] 6 15:45:51 Administ ration of bacteria l and viral vaccine Completed 201002/09/2014 RECORDED 09/20/19 11 1:19PM BY BABITA ANDERSON PA-C, OFFICE VISIT Susan De Oliveira PA-C [address] [facility]] [address], [place], [address], [facility] 6 15:45:51 Acute pharyngi tis 643833370 Completed 201101/16/2014 RECORDED 05/13/20 12 3:41PM BY ALLA BAUM MA, MARY CARMEN ON/ADDEN DUM Peyman Healy MD [address] [facility], [place], [address], [facility] 7 10:24:09 Screenin g for malignan t neoplasm of cervix Completed 201101/16/2014 RECORDED 05/13/20 12 3:41PM BY ALLA BAUM MA, MARY CARMEN ON/ADDEN DUM Susan De Oliveira PA-C [address] [facility][[address]] [address], [place], [address], [facility] 6 15:45:51 Epigastr ic pain 12512718 Completed 201101/16/2014 IMPRESSI ON: PROBABLE GASTRITI S D/T RECENT NSAIDS AND PREDNISO NE TAPER, NO LONGER TAKING EITHER; RECORDED 05/13/20 12 3:41PM BY ALLA BAUM MA, ANNOTATI ON/ADDEN DUM Susan De Oliveira PA-C [address], [place], [address], [facility] 6 15:45:51 Malaise and fatigue 421719273 Completed 201101/16/2014 IMPRESSI ON: PER PT REPORT WITH SIG INCREASE D STRESS LEVELS RECENTLY . SEES THERAPIS T WEEKLY, REC INCREASI NG ZOLOFT DOSE. CHANGED FROM 25- 50 MG.; RECORDED 05/13/20 12 3:41PM BY ALLA BAUM MA, MARY CARMEN ON/ADDEN DUM Susan RHODESC [address], [place], [address], [facility] 6 15:45:51 Low back pain 801821045 Completed 201101/16/2014 RECORDED 05/13/20 12 3:41PM BY ALLA BAUM MA, MARY CARMEN ON/ADDEN DUM BRODY Roberts [address] [facility] [address], [place], [address], [facility] 2 10:36:13 Adult health examinat ion Completed 201101/16/2014 RECORDED 05/13/20 12 3:41PM BY ALLA BAUM MA, ANNOTATI ON/ADDEN DUM Yvette martines MA [facility] 6 09:23:31 Shoulder joint pain 144047179 Completed 201101/16/2014 STORY: R SIDED, X PAST TWO WEEKS WITHOUT HX OF TRAUMA OR INJURY RECENT OR PAST. WITH ASSOCIAT ED WEAKNESS , MINIMAL RESP TO NSAID. WILL CONTACT [facility] TO SEE IF THEY ARE ABLE TO SEE HER SOON, IF NOT WILL CHECK XRAYS WHILE AWAITING APPT.; RECORDED 05/13/20 12 3:41PM BY ALLA BAUM MA, ANNOTCHARLENE ON/ADDEN DUM Susan RHODESC [address], [place], [address], [facility] 6 15:45:51 Disorder of upper respirat ory system Completed 201101/16/2014 RECORDED 05/13/20 12 3:41PM BY ALLA BAUM MA, MARY CARMEN ON/LUIS De Oliveira PA-C [address], [place], [address], [facility] 6 15:45:51 Acute upper respirat ory infectio n 54527691 Completed 201101/16/2014 IMPRESSI ON: 5 DAYS, NO FEVERS AND NO FOCAL SIGNS ON EXAM. LIKELY VIRAL, ADVISED RE REST, FLUIDS AND OTHER SX SUPPORT. CALL FOR WORSENIN G/PRN.; RECORDED 05/13/20 12 3:41PM BY ALLA BAUM MA, MARY CARMEN ON/ADDEN GEORGE De Oliveira PA-C [address], [place], [address], [facility] 6 15:45:51 Vernal conjunct ivitis 389601373 Completed 201101/16/2014 RECORDED 05/13/20 12 3:41PM BY ALLA BAUM MA, ANNOTATI ON/LUIS RHODES [address] [facility] [address], [place], [address], [facility] 6 15:45:51 Acute pharyngi tis 535106003 Completed 201102/08/2014 RECORDED 05/13/20 12 3:41PM BY ALLA BAUM MA, ANNOTATI ON/ADDEN GEORGE Healy MD [address], [place], [address], [facility] 7 10:24:09 Screenin g for malignan t neoplasm of cervix Completed 201102/08/2014 RECORDED 05/13/20 12 3:41PM BY ALLA BAUM MA, ANNOTATI ON/LUIS De Oliveira PA-C [address], [place], [address], [facility] 6 15:45:51 Epigastr ic pain 42465594 Completed 201102/08/2014 IMPRESSI ON: PROBABLE GASTRITI S D/T RECENT NSAIDS AND PREDNISO NE TAPER, NO LONGER TAKING EITHER; RECORDED 05/13/20 12 3:41PM BY ALLA BAUM MA, MARY CARMEN ON/ADDEN DUM Susan RHODESC [address] [facility] [address], [place], [address], [facility] 6 15:45:51 Malaise and fatigue 230619872 Completed 201102/08/2014 IMPRESSI ON: PER PT REPORT WITH SIG INCREASE D STRESS LEVELS RECENTLY . SEES THERAPIS T WEEKLY, REC INCREASI NG ZOLOFT DOSE. CHANGED FROM 25- 50 MG.; RECORDED 05/13/20 12 3:41PM BY ALLA BAUM MA, ANNOTATI ON/ADDEN GEORGE LICONA-C [address] [facility] [address], [place], [address], [facility] 6 15:45:51 Low back pain 341254225 Completed 201102/08/2014 RECORDED 05/13/20 12 3:41PM BY ALLA BAUM MA, ANNOTATI ON/ADDEN DUM BRODY oRberts [address] [facility], [place], [address], [facility] 2 10:36:13 Shoulder joint pain 168885786 Completed 201102/08/2014 STORY: R SIDED, X PAST [...] [address], [place], [address], [facility] 6 15:45:51 Disorder of upper respirat ory system Completed 201102/08/2014 RECORDED 05/13/20 12 3:41PM BY ALLA BAUM MA, MARY CARMEN ON/ADDEN GEORGE RHODESC [address], [place], [address], [facility] 6 15:45:51 Acute upper respirat ory infectio n 11883110 Completed 201102/08/2014 IMPRESSI ON: 5 DAYS, NO FEVERS AND NO FOCAL SIGNS ON EXAM. LIKELY VIRAL, ADVISED RE REST, FLUIDS AND OTHER SX SUPPORT. CALL FOR WORSENIN G/PRN.; RECORDED 05/13/20 12 3:41PM BY ALLA BAUM MA, MARY CARMEN ON/ADDEN GEORGE RHODESC [address], [place], [address], [facility] 6 15:45:51 Vernal conjunct ivitis 569319546 Completed 201102/08/2014 RECORDED 05/13/20 12 3:41PM BY ALLA BAUM MA, MARY CARMEN ON/LUIS RHODES [address] [facility] [address], [place], [address], [facility] 6 15:45:51 Acute pharyngi tis 397299636 Completed 201102/09/2014 RECORDED 05/13/20 12 3:41PM BY ALLA BAUM MA, MARY CARMEN ON/ADDEN GEORGE Healy MD [address], [place], [address], [facility] 7 10:24:09 Screenin g for malignan t neoplasm of cervix Completed 201102/09/2014 RECORDED 05/13/20 12 3:41PM BY ALLA BAUM MA, MARY CARMEN ON/LUIS De Oliveira PA-C [address] [facility], [place], [address], [facility] 6 15:45:51 Epigastr ic pain 71400089 Completed 201102/09/2014 IMPRESSI ON: PROBABLE GASTRITI S D/T RECENT NSAIDS AND PREDNISO NE TAPER, NO LONGER TAKING EITHER; RECORDED 05/13/20 12 3:41PM BY ALLA BAUM MA, ANNOTATI ON/LUIS De Oliveira PA-C [address] [facility], [place], [address], [facility] 6 15:45:51 Malaise and fatigue 564498957 Completed 201102/09/2014 IMPRESSI ON: PER PT REPORT WITH SIG INCREASE D STRESS LEVELS RECENTLY . SEES THERAPIS T WEEKLY, REC INCREASI NG ZOLOFT DOSE. CHANGED FROM 25- 50 MG.; RECORDED 05/13/20 12 3:41PM BY ALLA BAUM MA, ANNOTATI ON/LUIS De Oliveira PA-C [address] [facility], [place], [address], [facility] 6 15:45:51 Low back pain 493593134 Completed 201102/09/2014 RECORDED 05/13/20 12 3:41PM BY ALLA BAUM MA, ANNOTATI ON/BRODY Howard [address] [facility], [place], [address], [facility] 2 10:36:13 Shoulder joint pain 914625590 Completed 201102/09/2014 STORY: R SIDED, X PAST TWO WEEKS WITHOUT HX OF TRAUMA OR INJURY RECENT OR PAST. WITH ASSOCIAT ED WEAKNESS , MINIMAL RESP TO NSAID. WILL CONTACT [facility] TO SEE IF THEY ARE ABLE TO SEE HER SOON, IF NOT WILL CHECK XRAYS WHILE AWAITING APPT.; RECORDED 05/13/20 12 3:41PM BY ALLA BAUM MA, ANNOTATI ON/LUIS RHODESC [address], [place], [address], [facility] 6 15:45:51 Disorder of upper respirat ory system Completed 201102/09/2014 RECORDED 05/13/20 12 3:41PM BY ALLA BAUM MA, MARY CARMEN ON/LUIS Ruffinden OH-C [address], [place], [address], [facility] 6 15:45:51 Acute upper respirat ory infectio n 96092567 Completed 201102/09/2014 IMPRESSI ON: 5 DAYS, NO FEVERS AND NO FOCAL SIGNS ON EXAM. LIKELY VIRAL, ADVISED RE REST, FLUIDS AND OTHER SX SUPPORT. CALL FOR WORSENIN G/PRN.; RECORDED 05/13/20 12 3:41PM BY ALLA BAUM MA, MARY CARMEN ON/LUIS Davis De Oliveira OH-C [address], [place], [address], [facility] 6 15:45:51 Vernal conjunct ivitis 364875025 Completed 201102/09/2014 RECORDED 05/13/20 12 3:41PM BY ALLA BAUM MA, MARY CARMEN ON/LUIS Orozcooria De Oliveira OH-C [address], [place], [address], [facility] 6 15:45:51 Bronchit is [id number] Completed 201201/16/2014 RECORDED 07/28/19 13 1:45AM BY ALLA BAUM MA, ANNOTATI ON/LUIS Davis De Oliveira OH-C [address], [place], [address], [facility] 6 15:45:51 Bronchit is [id number] Completed 201202/08/2014 RECORDED 07/28/19 13 1:45AM BY ALLA BAUM MA, ANNOTATI ON/ADDEN DUM Susan De Oliveira PA-C [address], [place], [address], [facility] 6 15:45:51 Bronchit is [id number] Completed 201202/09/2014 RECORDED 07/28/19 13 1:45AM BY ALLA BAUM MA, ANNOTATI ON/ADDEN DUM Susan De Oliveira PA-C [address], [place], [address], [facility] 6 15:45:51 Follow-u p encounte r Completed 201201/16/2014 RECORDED 08/31/19 13 1:39PM BY RHONDA PETERSEN MA, ANNOTATI ON/ADDEN DUM Susan De Oliveira PA-C [address] [facility], [place], [address], [facility] 6 15:45:51 Disorder of rotator cuff Completed 201201/16/2014 IMPRESSI ON: SUSPECT SUPRASPI NATUS TENDON TEAR. 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 FURTHER F/U THROUGH [facility]. SHE WILL TAKE NSAID PRN AND ICE. MAY RETURN TO WORK.; RECORDED 08/31/19 13 1:39PM BY ROHNDA PETERSEN MA, ANNOTCHARLENE ON/ADDEN DUM Susan De Oliveira PA-C [address], [place], [address], [facility] 6 15:45:51 Follow-u p encounte r Completed 201202/08/2014 RECORDED 08/31/19 13 1:39PM BY RHONDA PETERSEN MA, ANNOTCHARLENE ON/ADDEN DUM Susan De Oliveira PA-C [address] [facility] [address], [place], [address], [facility] 6 15:45:51 Disorder of rotator cuff Completed 201202/08/2014 IMPRESSI ON: SUSPECT SUPRASPI NATUS TENDON TEAR. 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 FURTHER F/U THROUGH [facility]. SHE WILL TAKE NSAID PRN AND ICE. MAY RETURN TO WORK.; RECORDED 08/31/19 13 1:39PM BY RHONDA PETERSEN MA, MARY CARMEN ON/ADDEN DUM Susan LICONA-C [address], [place], [address], [facility] 6 15:45:51 Follow-u p encounte r Completed 201202/09/2014 RECORDED 08/31/19 13 1:39PM BY RHONDA PETERSEN MA, MARY CARMEN ON/ADDEN DUM Susananita LICONA-C [address] [facility] [address], [place], [address], [facility] 6 15:45:51 Disorder of rotator cuff Completed 201202/09/2014 IMPRESSI ON: SUSPECT SUPRASPI NATUS TENDON TEAR. 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 FURTHER F/U THROUGH [facility]. SHE WILL TAKE NSAID PRN AND ICE. MAY RETURN TO WORK.; RECORDED 08/31/19 13 1:39PM BY RHONDA PETERSEN MA, MARY CARMEN ON/ADDMOHAN DUM Susan RHODESC [address] [facility], [place], [address], [facility] 6 15:45:51 Adult health examinat ion Completed 201303/18/2016 Yvette martines MA null, [facility] 6 09:23:31 Anxiety state [id number] Completed 201312/30/2016 Peyman Healy MD [address] [facility], [place], [address], [facility] 7 10:23:44 Backache 649455872 Completed 201301/16/2014 IMPRESSI ON: > 1 WEEK OF WORSENIN G BACK PAIN, UNABLE TO STAND UPRIGHT, LEGS GIVING OUT. PAIN NOW RADIATIN G INTO BUTTOCKS AND ANTERIOR THIGHS. MRI REVEALED SCHMORL' S NODES, OTHERWIS E NEG. TO PSS FOR FURTHER EVAL.; RECORDED 10/05/19 14 2:28PM BY YEVTTE NUNEZ MA, MARY CARMEN ON/ADDEN DUM Susan LICONA-C [address], [place], [address], [facility] 6 15:45:51 Acute bronchit is [id number] Completed 201301/16/2014 IMPRESSI ON: LIKELY MOSTLY VIRAL SXS, HOWEVER DUE TO SMOKING STATUS AND RISK OF BACTERIA L BRONCHIT IS OR PNA TO TX WITH ABX. REST, FLUIDS, COUGH MED AT NIGHT PRN. CALL FOR WORSENIN G/PRN.; RECORDED 10/05/19 14 2:26PM BY YVETTE NUNEZ MA, MARY CARMEN ON/ Susanyimi LICONA-C [address] [facility] [address], [place], [address], [facility] 6 15:45:51 Cough [id number] Completed 201301/16/2014 IMPRESSI ON: POSSIBLE PNEUMONI A WITH THE FOCAL RALES. IF SHE DOES NOT IMPROVE WITH THE ABX SHE WILL GET A CXR.; RECORDED 10/05/19 14 2:26PM BY YVETTE UNNEZ MA, MARY CARMEN ON/ Conrado LICONA-C [address] [facility] [address], [place], [address], [facility] 5 09:10:19 Tobacco dependen ce syndrome 33674955 [facility] 09:[facility]:07 Tobacco dependen ce syndrome 72289601 Completed 201301/16/2014 RECORDED 10/05/19 14 2:27PM BY YVETTE NUNEZ MA, ANNOTATI ON/ADDEN GABRIELA Coburn [facility] 6 09:24:07 Diarrhea 93469147 Completed 201301/16/2014 RECORDED 10/05/19 14 2:25PM BY YVETTE NUNEZ MA, ANNOTATI ON/ADDEN DUM Susanyimi De Oliveira PA-C [address], [place], [address], [facility] 6 15:45:51 Dysuria 66371126 Completed 201312/30/2016 RECORDED 10/05/19 14 2:30PM BY YVETTE NUNEZ MA, OFFICE VISIT Peyman Healy MD [address], [place], [address], [facility] 7 10:24:17 Elevated blood-pr essure reading without diagnosi s of hyperten margaret 649974051 Completed 201305/03/2025 Conrado De Oliveira PA-C [address], [place], [address], [facility] 5 09:19:58 Gastroes ophageal reflux disease 398899958 Active 2013 GABRIELA Coburn, [facility] 6 09:23:24 Headache 76028759 Completed 201301/16/2014 RECORDED 10/05/19 14 2:28PM BY YVETTE NUNEZ MA, ANNOTATI ON/ADDEN DUM Susan De Oliveira PA-C [address], [place], [address], [facility] 6 15:45:51 Hyperlip idemia 91081902 Completed 201312/30/2016 BRODY Roberts [address], [place], [address], [facility] 2 14:05:28 Acute lymphade nitis 17911340 Completed 201301/16/2014 IMPRESSI ON: PT VERY ANXIOUS [...] BY YVETTE NUNEZ MA, MARY CARMEN ON/ADDEN GEORGE De Oliveira PA-C [address], [place], [address], [facility] 6 15:45:51 Psoriasi s 4111322 Active 2013 Yvette martines [place] null, [facility] 6 09:24:04 Disorder of bursa of shoulder region 64706194 Completed 201305/03/2025 Conrado De Oliveira PA-C [address], [place], [address], [facility] 5 09:11:46 Temporom andibula r joint disorder 50353213 Completed 201305/03/2025 Conrado De Oliveira PA-C [address], [place], [address], [facility] 5 09:11:59 Candidal vulvovag initis 37531970 Completed 201301/16/2014 IMPRESSI ON: TENDS TO GET YEAST INFECTIO NS WITH ABX; RECORDED 10/05/19 14 2:26PM BY YVETTE NUNEZ MA, ANNOTATI ON/ADDEN DUM Susan De Oliveira PA-C [address], [place], [address], [facility] 6 15:45:51 Backache [id number] Completed 201302/08/2014 IMPRESSI ON: > 1 WEEK OF WORSENIN G BACK PAIN, UNABLE TO STAND UPRIGHT, LEGS GIVING OUT. PAIN NOW RADIATIN G INTO BUTTOCKS AND ANTERIOR THIGHS. MRI REVEALED SCHMORL' S NODES, OTHERWIS E NEG. TO PSS FOR FURTHER EVAL.; RECORDED 10/05/19 14 2:28PM BY YVETTE NUNEZ MA, MARY CARMEN ON/LUIS LICONA-C [address], [place], [address], [facility] 6 15:45:51 Acute bronchit is 78392642 Completed 201302/08/2014 IMPRESSI ON: LIKELY MOSTLY VIRAL SXS, HOWEVER DUE TO SMOKING STATUS AND RISK OF BACTERIA L BRONCHIT IS OR PNA TO TX WITH ABX. REST, FLUIDS, COUGH MED AT NIGHT PRN. CALL FOR WORSENIN G/PRN.; RECORDED 10/05/19 14 2:26PM BY YVETTE NUNEZ MA, ANNOTATI ON/LUIS LICONA-C [address], [place], [address], [facility] 6 15:45:51 Cough [id number] Completed 201302/08/2014 IMPRESSI ON: PRODUCTI VE COUGH X 10D, + TOBACCO, WILL TX, ADVISE TO STOP SMOKING, RTC IF PERSISTE NT OR WORSENIN G SYMPTOMS .; RECORDED 10/05/19 14 2:26PM BY YVETTE NUNEZ MA, ANNOTATI ON/LUIS De Oliveira PA-C [address], [place], [address], [facility] 5 09:10:19 Diarrhea 83738757 Completed 201302/08/2014 RECORDED 10/05/19 14 2:25PM BY YVETTE NUNEZ MA, MARY CARMEN ON/LUIS RHODESC [address], [place], [address], [facility] 6 15:45:51 Headache 86746791 Completed 201302/08/2014 RECORDED 10/05/19 14 2:28PM BY YVETTE NUNEZ MA, MARY CARMEN ON/ADDEN GEORGE De Oliveira PA-C [address], [place], [address], [facility] 6 15:45:51 Acute lymphade nitis 18049979 Completed 201302/08/2014 IMPRESSI ON: PT VERY ANXIOUS [...] BY YVETTE NUNEZ MA, MARY CARMEN ON/ADDMOHAN LICONA-C [address], [place], [address], [facility] 6 15:45:51 Candidal vulvovag initis 19044631 Completed 201302/08/2014 IMPRESSI ON: TENDS TO GET YEAST INFECTIO NS WITH ABX; RECORDED 10/05/19 14 2:26PM BY YVETTE NUNEZ MA, MARY CARMEN ON/ADDMOHAN LICONA-C [address], [place], [address], [facility] 6 15:45:51 Backache [id number] Completed 201302/09/2014 IMPRESSI ON: > 1 WEEK OF WORSENIN G BACK PAIN, UNABLE TO STAND UPRIGHT, LEGS GIVING OUT. PAIN NOW RADIATIN G INTO BUTTOCKS AND ANTERIOR THIGHS. MRI REVEALED SCHMORL' S NODES, OTHERWIS E NEG. TO PSS FOR FURTHER EVAL.; RECORDED 10/05/19 14 2:28PM BY YVETTE NUNEZ MA, MARY CARMEN ON/ADDMOHAN Davis [facility] [address], [place], [address], [facility] 6 15:45:51 Acute bronchit is [id number] Completed 201302/09/2014 IMPRESSI ON: LIKELY MOSTLY VIRAL SXS, HOWEVER DUE TO SMOKING STATUS AND RISK OF BACTERIA L BRONCHIT IS OR PNA TO TX WITH ABX. REST, FLUIDS, COUGH MED AT NIGHT PRN. CALL FOR WORSENIN G/PRN.; RECORDED 10/05/19 14 2:26PM BY YVETTE NUNEZ MA, MARY CARMEN ON/ADDMOHAN Davis [facility] [address] [facility] [address], [place], [address], [facility] 6 15:45:51 Cough [id number] Completed 201302/09/2014 IMPRESSI ON: PRODUCTI VE COUGH X 10D, + TOBACCO, WILL TX, ADVISE TO STOP SMOKING, RTC IF PERSISTE NT OR WORSENIN G SYMPTOMS .; RECORDED 10/05/19 14 2:26PM BY YVETTE NUNEZ MA, MARY CARMEN ON/ADDEN DUM Conrado De Oliveira OH-C [address] [facility] [address], [place], [address], [facility] 5 09:10:19 Diarrhea 50891655 Completed 201302/09/2014 RECORDED 10/05/19 14 2:25PM BY YVETTE NUNEZ MA, MARY CARMEN ON/LUIS [facility] [address], [place], [address], [facility] 6 15:45:51 Headache 29008082 Completed 201302/09/2014 RECORDED 10/05/19 14 2:28PM BY YVETTE NUNEZ MA, ANNOTATI ON/LUIS De Oliveira PA-C [address], [place], [address], [facility] 6 15:45:51 Acute lymphade nitis 50042876 Completed 201302/09/2014 IMPRESSI ON: PT VERY ANXIOUS [...] BY YVETTE NUNEZ MA, MARY CARMEN ON/LUIS De Oliveira PA-C [address], [place], [address], [facility] 6 15:45:51 Candidal vulvovag initis 12286460 Completed 201302/09/2014 IMPRESSI ON: TENDS TO GET YEAST INFECTIO NS WITH ABX; RECORDED 10/05/19 14 2:26PM BY YVETTE NUNEZ MA, MARY CARMEN ON[facility] Susan De Oliveira PA-C [address], [place], [address], [facility] 6 15:45:51 Glucose level outside referenc e range 020014828 Completed 201312/30/2016 Peyman Healy MD [address], [place], [address], [facility] 7 10:23:38 Anemia of pregnanc y 28113213 Completed 201512/30/2016 Peyman Healy MD [address], [place], [address], [facility] 7 10:23:35 Generali zed anxiety disorder 57312766 Active 2016 GABRIELA Coburn, [facility] 7 11:53:56 Primary biliary cholangi tis 30368395 Active 2019 Noah Sanchez, [facility] [address] [address], [facility] [place], [address], [facility] 0 10:57:26 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 no other organs. nephrect sandoval 09/2019 Removal Reason: radical nephrect sandoval 09/2019 Lynda ortega [facility] 3 15:23:27 Neoplasm of left kidney [id number] 044382 Completed 202004/27/2023 Removal Reason: radical nephrect sandoval 09/2019 Lynda ortega [facility] 3 15:23:00 Low back pain 259073763 Active 2021 RECORDED 05/13/20 12 3:41PM BY ALLA BAUM MA, ANNOTATI ON/ADDEN DUM Noah Sanchez, [facility] [address] [place] [address], [facility] [place], [address], [facility] 2 10:36:13 Plantar fasciiti s of right foot 80048509772 377304 Completed 202105/03/2025 Conrado De Oliveira PA-C [address] [address], [facility] [place], [address], [facility] 5 09:11:38 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 39133375815 499893 Active 2021 Noah Sanchez [facility] [address] [address], [facility] [place], [address], [facility] 2 13:54:13 Hyperlip idemia 41586571 Active 2021 Noah Sanchez, [facility] [address], [place], [address], [facility] 2 14:05:27 Fatigue 10668538 Completed 202105/03/2025 Conrado De Oliveira PA-C [address], [place], [address], [facility] 5 09:10:48 Impaired fasting glycemia 141800351 Active 2021 Noah Sanchez, [facility] [address], [place], [address], [facility] 2 14:05:59 Pain of left hip joint 06723592509 9100 Completed 202105/03/2025 Conrado De Oliveira PA-C [address], [place], [address], [facility] 5 09:11:50 Obesity 761687767 Active 2022 [facility] 3 15:21:38 Cough 68464191 Completed 202305/03/2025 IMPRESSI ON: PRODUCTI VE COUGH X 10D, + TOBACCO, WILL TX, ADVISE TO STOP SMOKING, RTC IF PERSISTE NT OR WORSENIN G SYMPTOMS .; RECORDED 10/05/19 14 2:26PM BY YVETTE NUNEZ MA, ANNOTATI ON/ADDEN DUM Conrado De Oliveira PA-C [address], [place], [address], [facility] 5 09:10:19 COVID-19 410655046 Completed 202305/03/2025 Conrado De Oliveira PA-C [address], [place], [address], [facility] 5 09:11:55 Fever 518796101 Completed 202305/03/2025 Conrado De Oliveira PA-C [address], [place], [address], [facility] 5 09:10:27 Vitamin D deficien cy 21689368 Active 2023 BRODY Roberts [address] [facility] [address], [place], [address], [facility] 4 15:27:42 Acute right otitis media 795128311 Completed 202405/03/2025 Conrado De Oliveira PA-C [address], [place], [address], [facility] 5 09:12:07 History of primary malignan t neoplasm of kidney 407067540 Active 2024 Conrado De Oliveira PA-C [address], [place], [address], [facility] 5 09:19:00 Bilatera l carpal tunnel syndrome 49501304928 055247 Active 2024 Conrado De Oliveira PA-C [address] [facility] [address], [place], [address], [facility] 5 09:54:43 Problem Notes None recorded. Procedures Surgical History Date Name Laterality Status Provider Name and Address Organization Details Recorded Time 09/07/19 25 Most Recent Mammogram completed Emili Martinez [facility] 09/12/2024 12:55:45 07/14/19 23 Mammogram Screening completed Danielle Rodriguez [facility] 07/14/2022 16:24:36 05/05/20 22 fasciotomy of foot completed BRODY Roberts [address] [facility] [address], [place], [address], [facility] 04/27/2023 09:18:39 09/07/19 20 radical nephrectomy completed Greta Glasgow [facility] 09/11/2019 15:28:04 09/07/19 20 Cancer Surgery completed Sherlyn Brown MA [facility] 03/27/2021 08:40:34 07/14/19 17 Date of Last Colonoscopy completed Yvette slaughter MA [facility] 12/30/2016 10:13:20 07/14/19 17 Colonoscopy completed Noah Sanchez, [facility] [address] [address], [place], [address], [facility] 02/14/2019 15:53:00 02/11/20 07 delivery completed Yvette Westbrook-Cristhian slaughter [facility] 02/14/2019 15:32:01 01/14/20 04 Caesarean Section completed Yvette slaughter [facility] 02/14/2019 15:31:51 09/03/19 00 Tonsillectomy completed Sherlyn Brown MA [facility] 03/27/2021 08:40:34 Tubal Ligation completed Yvette slaughter, [facility] 11/21/2014 14:01:10 Tonsillectomy completed Sherlyn Brown MA [facility] 03/27/2021 08:40:34 Imaging Results None recorded. Procedure Notes None recorded. Medical Equipment None Reported. Allergies Allergen ID Allergen Name Allergen Category Reaction Reaction Severity Criticality Documentation Date Start Date Code Code System Note Provider Name and Address Organization Details Recorded Time amoxicill in medicatio n other Not available Not available 10/18/2014 723 RxNorm cause s yeast infec tion in the past GABRIELA Coburn [facility] 5 12:49:17 2838 Keflex medicatio n itching Not available Not available 01/16/2014201316 7 RxNorm GABRIELA Coburn [facility] 5 12:49:17 2839 Product containin g penicilli n (product) medicatio n Not available Not available Not available 01/16/20142013 53509 8001 SNOMED REACT ION: AMOX, CAUSE S YEAST INFEC TIONS ; COMME NT: RECOR DED 10/04 2:30P M BY SRINIVAS HUERTA MA, OFFIC E VISIT ; Peyman Healy MD [address] [facility] [address], [place], [address], [facility] 5 16:56:28 51524 Non-stero idal anti-infl ammatory agent (substanc e) medicatio n other moderate low 04/21/2022 13183 5008 SNOMED 1 BRODY Schrader [address] [facility], [place], [address], [facility] 2 13:55:13 03248 cephalexi n medicatio n Not available Not [...] Updated DateTime 5 158.75 cm 35.3 kg/m2 73249.2 g 81 /min 99 % 98.2 [degF] 133/79 mm[Hg] Estefania Callahan MA [facility] 5 08:43:23 Social History Question Answer Notes LastModified by Organizat ion Details LastModified Time Tobacco Smoking Status Former Smoker pt quit 09/2019 GABRIELA Waller, [facility] 03/26/2020 10:39:09 Do You Have An Advance [...] Did You Quit Smoking? 1-5yearssin atilio leigh [email or web address] Information not available 03/27/2021 Live Alone Or With Others? With Others 2 Children, 2 Dogs 2 Cats Information not available 05/03/2025 Do You Take [...] Or Greater Than 100 Degrees Fahrenheit? No [email or web address] Information not available 03/26/2020 Are You Or Anyone In Your Household A Health Care Provider Or Emergency Responder? Yes [email or web address] Information not available 03/26/2020 To The Best Of Your Knowledge Have You Been In Close Proximity To Any Individual Who Tested Positive For COVID-19? No [email or web address] Information not available 03/26/2020 Have You Recently Traveled To A COVID-19 High Risk Area Or Gathering In The Last 10 Days? No [email or web address] Information not available 07/23/2020 What Was The Date Of Your Most Recent Tobacco Screening? 05/03/2025 Information not available 05/03/2025 How Many Children Do You Have? 2 Gabriel And Jas Information not available 12/30/2016 What Is Your Current Pack Years? 10packyears Information not available 05/03/2025 Do You Use Your Seat Belt Or Car Seat Routinely? Yes [email or web address] Information not available 03/27/2021 Seat Belts Used Routinely Yes Information not available 04/23/2022 Are You Sexually Active? No Information not available 12/30/2016 Smoke Alarm In Home Yes Information not available 04/23/2022 Do You Have Smoke And Carbon Monoxide Detectors In Your Home? 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 [employer] [facility] Information not available 05/03/2025 Do you or [...] Organization Details LastModified Time Father Diabetes mellitus juan [email or web address] Not available 13:56:24 Father Heart disease [email or web address] Not available 13:56:24 Father Essential hypertension Not available 10:40:59 Father Malignant neoplasm of lung [email or web address] Not available 03/27 08:40:16 Father Kidney disease Not available 03/27 08:40:16 Mother Malignant neoplasm of uterus molar pregna ncy- hyster ectomy Not available 04/23/2022 10:40:59 Mother Opioid dependence Not available 04/23 10:40:59 Mother Substance abuse [email or web address] Not available 03/27 08:40:16 Mother Seizure disorder [email or web address] Not available 03/27 08:40:16 Mother Osteoporosis [email or web address] Not vasile ilable 03/27/2021 08:40:16 Mother Disorder of thyroid gland Not available 2021 10:40:59 Brother Essential hypertension 45 possib ly Not available 04/23/2022 10:40:59 Brother Harmful pattern of use of alcohol [email or web address] Not available 2017 15:39:14 Brother Depressive disorder [email or web address] Not available 03/27 08:40:16 Maternal Grandfather Opioid [...] Influenza, split virus, trivalent, preservative 6 completed Yvette Swain MA [facility] 12/30/2016 10:11:22 Influenza, split virus, quadrivalent, preservative 8 [facility] 10:03:42 Influenza, split virus, quadrivalent, preservative 9 completed Mt Flores MA [facility] 06/14/2019 09:27:56 COVID-19, mRNA, LNP-S, PF, 100 mcg/0.5mL dose or 50 mcg/0.25mL dose 0 completed Sandra Mcconnell MA [facility] 09/12/2021 10:18:38 Influenza, split virus, quadrivalent, PF 1 completed GABRIELA Herbert, [facility] 09/12/2021 10:18:38 COVID-19, mRNA, LNP-S, PF, 100 mcg/0.5mL dose or 50 mcg/0.25mL dose 1 completed GABRIELA Herbert, [facility] 09/12/2021 10:18:38 Influenza, split virus, quadrivalent, PF 7 completed GABRIELA Herbert, [facility] 09/12/2021 10:18:39 Influenza, split virus, trivalent, preservative 5 completed GABRIELA Valadez, [facility] 12/24/2021 10:23:35 Influenza, split virus, quadrivalent, PF 3 completed GABRIELA Valadez, [facility] 07/13/2023 11:16:35 Influenza, split virus, trivalent, PF 4 completed Not Available [facility] 05/03/2025 08:38:15 Influenza, split virus, trivalent, PF 5 completed Not Available [facility] 05/03/2025 08:38:15 Tdap 1 completed Not Available [facility] 01/16/2014 13:38:10 Influenza, split virus, quadrivalent, PF 0 completed GABRIELA Waller, [facility] 03/26/2020 10:48:58 Tdap 1 completed GABRIELA Carrizales, [facility] 03/27/2021 10:06:49 Influenza, split virus, quadrivalent, PF 2 completed MILA Roberts [address], [address], [facility] 04/23/2022 11:29:33 Past Encounters Encounter ID Performer Location Encounter Start Date Encounter Closed Date Diagnosis/Indication Diagnosis SNOMED-CT Code Diagnosis ICD10 Code Diagnosis IMO Codes Diagnosis Note [id number] Sim Garcia MD Main Office [address] [facility] [address] [place] [address] 05/03/2025 08:36:04 05/03/2025 09:41:05 Adult health examination 903580946 Z00.00 colon utd - next 1.27mammo, pap utd Vitamin D deficiency 347 46948 E55.9 Primary bi liary cholangitis 93566959 K74.3 stable, cont med as dir, cont f/u c gi Psoriasis 0633685 L40.9 stable, cont f/u c derm q yr Fatigue 23104483 R53.83 0006563 Impaired f asting glycemia 935303712 R73.01 118780 Hyperlipidemia 74599005 E78.5 Generalize d anxiety disorder 63037923 F41.1 stable, cont med as dir, cont f/u c therapist History of primary malignant neoplasm of kidney 562405768 Z85.528 06613747 stable, cont f/u c uro q yr Bilateral carpal tunnel syndrome 9416117006 9236329 G56.03 942477 pending B sx - [facility] Body mass index 30+ - obesity 142598051 E66.9 Z68.35 cont f/u c nutritioni st, walk, plenty of sleep - but naps a lot - see snoring below Snoring 17142288 R06.83 43996 will get sleep med eval Health Concerns Section Related Observation LastModified by Organization Detai ls LastModified Time None Recorded Concern Status LastModified by Organization Details LastModified Time None Recorded Payers Encounter Date Sequence Insurance Name Policy Number Policy Ward Covered Member ID Ward Member ID Guarantor Name 05/03/2025 1 [employer] [facility] [id number] Tere Junior [id number] Tere Junior Notes Date Note Type Note Provider Name and Address Organization Details Recorded Time 05/03/2025 text/html Generic HPI TemplateReported by Patient here for annual pe. Conrado De Oliveira PA-C [address] [facility], [place], [address], [facility] 05/06/2025 09:55:57 OBGyn Episode No OBEpisode recorded.
== END 2025-06-20 15:08 | disposition home or self-care (01) ==
LOC: HO.HSMC 14:13
PROVIDERS: PCP Physician Assistant Medical; Visit Provider Physician Assistant Medical
DX: R06.83 Snoring (principal); R20.0 Anesthesia of skin; R20.2 Paresthesia of skin; G47.19 Other hypersomnia
CPT/HCPCS: 99204

== ENCOUNTER 2025-06-26 12:31 | Outpatient (AMB) | payer OTHER, SELFPAY ==
[2025-06-26 12:54] VITALS: BMI 36.8
--- NOTE | 2025-06-26 12:54 | MHC.OFFVIS ---
Vital Signs 06/26/25 12:54 Height 5 ft 2 in Weight 201 lb BMI 36.8 Intake Visit Reasons: PO LT CTR 06/11/25 AR Intake Note: Tere is a 50 year old right left hand dominant female who presents today for a Post-Operative Visit status post Left Carpal Tunnel Release, DOS: 06/14/[address] Hoover. Patient reports she no longer has any numbness and is doing well. She is able to hold a book for long periods of time with out her hand going numb. Patient states she has never taken any pain medications. Sutures removed and steri strips applied. Allergies adhesive tape Allergy (Unknown, Verified 06/26/25 12:54) Unknown NSAIDS (Non-Steroidal Anti-Inflamma Allergy (Unknown, Verified 06/26/25 12:54) Unknown amoxicillin Allergy (Verified 06/26/25 12:54) Rash cephalexin (From Keflex) Allergy (Verified 06/26/25 12:54) Rash HPI HPI PO LT CTR 06/11/25 AR: Details: Tere is a 50 year old right left hand dominant female who presents today for a Post-Operative Visit status post Left Carpal Tunnel Release, DOS: 06/14/[address] Hoover. Patient reports she no longer has any numbness and is doing well. She is able to hold a book for long periods of time with out her hand going numb. Patient states she has never taken any pain medications. Sutures removed and steri strips applied. Patient would like to move forward with right carpal tunnel release at this time. [facility] Medical History Malignant neoplasm of kidney Vitamin D deficiency Obesity IFG (impaired fasting glucose) Hyperlipemia Fibromatosis Low back pain Primary biliary cholangitis Anxiety Psoriasis GERD (gastroesophageal reflux disease) IBS (irritable bowel syndrome) Renal cell carcinoma Surgical History History of carpal tunnel surgery of left wrist H/O colonoscopy Hx of fasciotomy Hx of tonsillectomy Hx of tubal ligation History of nephrectomy, left Family History Father Diabetes mellitus Heart disease HTN (hypertension) Kidney disease Mother Uterine cancer Seizure Brother HTN (hypertension) Depression Social History Patient Tobacco Use Status: Never used Tobacco Current occupational status: employed 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 Good APB muscle firing and good finger cross. Vascular: Capillary refill brisk. ROM: Patient can make a fist and extend all their digits. Skin: Well approximated and well healing incision site noted on volar left wrist No lacerations or abrasions noted. General: No ecchymosis. No erythema or evidence of infection. Assessment & Plan Assessment & Plan (1) Bilateral carpal tunnel syndrome: Code(s): G56.03 - Carpal tunnel syndrome, bilateral upper limbs Category: Medical Plan 1. Status post left carpal tunnel release DOS 06/11/2025 With good symptomatic resolution postoperatively Patient appears to be recovering well postoperatively Patient is educated about the typical recovery course No under water times one-week, 2 lb weight limit x2 weeks Patient appears to be recovering very well, and requires no further acute follow-up with us postoperatively Patient is educated and worrisome signs and symptoms, and should call us if they experience any of these, including but not limited to redness, swelling, increased pain, and discharge Patient understands this and is amenable to this plan 2. Right carpal tunnel syndrome Symptoms intermittent, daily, worse at night I educated the patient about the condition. I discussed both operative and nonoperative treatment options. The patient would like to proceed with surgery. The risks and benefits of operative treatment were discussed with the patient and the patient wishes to proceed with surgery. These risks include, but are not limited to, risk of damage to blood vessels, nerves, tendons, infection, recurrence, incomplete relief of preoperative symptoms, persistent pain, possible need for further surgery, and the risks associated with regional blocks and/or anesthesia. Plan is to take the patient to the operating room at some point in the next few weeks for the following procedures: 1. Right carpal tunnel release under local All of the preoperative paperwork including the consent was discussed today. All of the patient's questions were answered in the clinic today. The patient understands that they will be in contact with our surgical services asst to discuss scheduling their procedure. Patient denies diabetes, blood thinners, asthma, heart issues, lung issues, kidney issues, or current smoking. Coding Level of Care Code Est Pt Level 4 (88844) Diagnoses Bilateral carpal tunnel syndrome G56.03
--- OUTSIDE RECORDS SUMMARY | 2025-06-26 13:34 | XMS_ITS | Clinical Summary ---
Author Organization [facility] [address] [facility] Address [address] [place] [address] Phone Care Team Providers Care Electrical Laboratory Technician Name Role Phone Noah Sanchez Primary Care Provider [phone] Allergies Active Allergy Reactions Criticality Noted Date [...] [address] [place] [address] Roseline Leone MD from Last [...] FUNCTION PANEL Routine 04/03/2025 Primary biliary cholangitis ([facility]/H[facility] V24, [facility] V28) from Last 3 Months Results * Hepatic function panel (04/03/2025) Blood Venous blood specimen / Unknown us Roseline Leone MD LAB BLOOD ORDERABLES Final Res ult EXTERNAL LAB (NON-INTERFACED) from Last 3 Months Insurance [facility] [place] [id number] [employer] [facility] Care Teams Electrical Laboratory Technician Relationship Specialty Start Date End Date Noah Sanchez PA [address] [address] PCP - General Physician Logistics Solution Manager 04/28/24
--- OUTSIDE RECORDS SUMMARY | 2025-06-26 13:34 | XMS_ITS | Continuity of Care Document ---
Author Organization [facility], Main Office Address [address] [place] [address] Care Team Providers Care Window And Door Installer Name Role Phone LAURA NAIK Change Consultant SANDRA NIETO Salvage Engineering Technician [phone] GILMER MARTINO Product Safety Officer [phone] ODILIA DOYLE Urologist TRESA BERRY Urologist CONRADO DE OLIVEIRA Primary Care Provider [phone] Assessment No assessment recorded. Plan of Treatment Reminders Order Date Submit Date Provider Last Modified By Organization Details Last Modified Time Details Appointments FOLLOW UP 30MIN 2025 04:00P M Conrado De Oliveira PAKatarzyna Not available Not available Not available Lab lipid panel, serum 2024 [facility] (Lab), [address] [place] [address], [address], 05/03/2025 09:30:54 CMP, serum or plasma 2024 025 [facility] (Lab), [address] [place] [address], [address], 06/16/2025 10:24:03 TSH, ultra-sen sitive, serum 2024 025 [facility] (Lab), [address] [place] [address], [address], 05/03/2025 09:30:55 CBC w/ auto diff 2024 [facility] (Lab), [address] [place], [address], 05/03/2025 09:30:54 HbA1c (hemoglob in A1c), blood 2024 [facility] (Lab), [address] [place], [address], 05/03/2025 09:30:55 vitamin D, 25-hydrox y, total, serum 2024 [facility], [address], [place], [address], 05/03/2025 09:29:47 Referral sleep medicine referral 2024 [facility] [address] [place] [address], [place], [address], 05/09/2025 11:48:08 nutrition ist/dieti ranjan referral 2024 Not available 05/03/2025 11:39:29 Procedures None recorded. Surgeries None recorded. Imaging None recorded. Medication Orders None recorded. 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 % [...] By Organization Details Last Modified Time 05/03/2025 [id number] Well Visit, Ages 18 to 65: Care [...] Not available 05/03/2025 09:19:15 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 Product Coordinator/dietitian Refer ral for Body mass index 30+ [...] Address Organization Details Recorded Time Wheezing symptom [id number] Completed 12/30/2016 Peyman Healy MD [address] [facility] [address], [place], [address], [facility] 7 10:24:02 Acute sinusiti s [id number] Completed 12/30/2016 Peyman Healy MD [address] [facility] [address], [place], [address], [facility] 7 10:23:40 Acute asthma 087535137 Completed 12/30/2016 Peyman Healy MD [address] [facility] [address], [place], [address], [facility] 7 10:24:04 Acute allergic reaction 777433997 Completed 12/30/2016 Peyman Healy MD [address] [facility] [address], [place], [address], [facility] 7 10:23:59 Fatigue 62732078 Completed 12/30/2016 Conrado De Oliveira PA-C [address] [facility] [address], [place], [address], [facility] 5 09:10:48 Irritabl e bowel syndrome 31921293 Active Susan De Oliveira PA-C [address] [facility] [address], [place], [address], [facility] 6 15:45:51 Acute pharyngi tis 179623545 Completed 12/30/2016 Peyman Healy MD [address] [facility] [address], [place], [address], [facility] 7 10:24:09 Pain in calf 071879952 Completed 12/30/2016 Peyman Healy MD [address] [facility] [address], [place], [address], [facility] 7 10:24:07 Synovial cyst of knee 479100348 Completed 12/30/2016 Peyman Healy MD [address] [facility] [address], [place], [address], [facility] 7 10:23:54 Lumbar sprain 797173567 Completed 12/30/2016 Peyman Healy MD [address] [facility] [address], [place], [address], [facility] 7 10:23:49 Sprain pelvic ligament 611501563 Completed 12/30/2016 Peyman eHaly MD [address] [facility] [address], [place], [address], [facility] 7 10:23:46 Inflamma tion of sacroili ac joint 68173700 Completed 12/30/2016 Peyman Healy MD [address] [facility] [address], [place], [address], [facility] 7 10:24:21 Administ ration of bacteria l and viral vaccine Completed 201001/16/2014 RECORDED 09/20/19 11 1:19PM BY BABITA ANDERSON PA-C, OFFICE VISIT Susan De Oliveira PA-C [address] [facility] [address], [place], [address], [facility] 6 15:45:51 Administ ration of bacteria l and viral vaccine Completed 201002/08/2014 RECORDED 09/20/19 11 1:19PM BY BABITA ANDERSON PA-C, OFFICE VISIT Susan De Oliveira PA-C [address] [facility] [address], [place], [address], [facility] 6 15:45:51 Administ ration of bacteria l and viral vaccine Completed 201002/09/2014 RECORDED 09/20/19 11 1:19PM BY BABITA ANDERSON PA-C, OFFICE VISIT Susan De Oliveira PA-C [address] [facility] [address], [place], [address], [facility] 6 15:45:51 Acute pharyngi tis 248349475 Completed 201101/16/2014 RECORDED 05/13/20 12 3:41PM BY ALLA BAUM MA, MARY CARMEN ON/ADDEN DUM Peyman Healy MD [address] [facility] [address], [place], [address], [facility] 7 10:24:09 Screenin g for malignan t neoplasm of cervix Completed 201101/16/2014 RECORDED 05/13/20 12 3:41PM BY ALLA BAUM MA, MARY CARMEN ON/ADDEN DUM Susan De Oliveira PA-C [address] [facility] [address], [place], [address], [facility] 6 15:45:51 Epigastr ic pain 73502798 Completed 201101/16/2014 IMPRESSI ON: PROBABLE GASTRITI S D/T RECENT NSAIDS AND PREDNISO NE TAPER, NO LONGER TAKING EITHER; RECORDED 05/13/20 12 3:41PM BY ALLA BAUM MA, ANNOTATI ON/ADDEN DUM Susan De Oliveira PA-C [address], [place], [address], [facility] 6 15:45:51 Malaise and fatigue 216168909 Completed 201101/16/2014 IMPRESSI ON: PER PT REPORT WITH SIG INCREASE D STRESS LEVELS RECENTLY . SEES THERAPIS T WEEKLY, REC INCREASI NG ZOLOFT DOSE. CHANGED FROM 25- 50 MG.; RECORDED 05/13/20 12 3:41PM BY ALLA BAUM MA, MARY CARMEN ON/ADDEN DUM Susan RHODESC [address], [place], [address], [facility] 6 15:45:51 Low back pain 799875387 Completed 201101/16/2014 RECORDED 05/13/20 12 3:41PM BY ALLA BAUM MA, MARY CARMEN ON/ADDEN DUM BRODY Roberts [address] [facility] [address], [place], [address], [facility] 2 10:36:13 Adult health examinat ion Completed 201101/16/2014 RECORDED 05/13/20 12 3:41PM BY ALLA BAUM MA, ANNOTATI ON/ADDEN DUM Yvette martines MA [facility] 6 09:23:31 Shoulder joint pain 755735961 Completed 201101/16/2014 STORY: R SIDED, X PAST [...] [address], [place], [address], [facility] 6 15:45:51 Disorder of upper respirat ory system Completed 201101/16/2014 RECORDED 05/13/20 12 3:41PM BY ALLA BAUM MA, MARY CARMEN ON/LUIS De Oliveira PA-C [address], [place], [address], [facility] 6 15:45:51 Acute upper respirat ory infectio n 14618434 Completed 201101/16/2014 IMPRESSI ON: 5 DAYS, NO FEVERS AND NO FOCAL SIGNS ON EXAM. LIKELY VIRAL, ADVISED RE REST, FLUIDS AND OTHER SX SUPPORT. CALL FOR WORSENIN G/PRN.; RECORDED 05/13/20 12 3:41PM BY ALLA BAUM MA, MARY CARMEN ON/ADDEN GEORGE De Oliveira PA-C [address], [place], [address], [facility] 6 15:45:51 Vernal conjunct ivitis 436575223 Completed 201101/16/2014 RECORDED 05/13/20 12 3:41PM BY ALLA BAUM MA, ANNOTATI ON/LUIS RHODES [address] [facility] [address], [place], [address], [facility] 6 15:45:51 Acute pharyngi tis 365335254 Completed 201102/08/2014 RECORDED 05/13/20 12 3:41PM BY ALLA BAUM MA, ANNOTATI ON/ADDEN GEORGE Healy MD [address], [place], [address], [facility] 7 10:24:09 Screenin g for malignan t neoplasm of cervix Completed 201102/08/2014 RECORDED 05/13/20 12 3:41PM BY ALLA BAUM MA, ANNOTATI ON/LUIS De Oliveira PA-C [address], [place], [address], [facility] 6 15:45:51 Epigastr ic pain 61353384 Completed 201102/08/2014 IMPRESSI ON: PROBABLE GASTRITI S D/T RECENT NSAIDS AND PREDNISO NE TAPER, NO LONGER TAKING EITHER; RECORDED 05/13/20 12 3:41PM BY ALLA BAUM MA, MARY CARMEN ON/ADDEN DUM Susan RHODESC [address] [facility] [address], [place], [address], [facility] 6 15:45:51 Malaise and fatigue 482355846 Completed 201102/08/2014 IMPRESSI ON: PER PT REPORT WITH SIG INCREASE D STRESS LEVELS RECENTLY . SEES THERAPIS T WEEKLY, REC INCREASI NG ZOLOFT DOSE. CHANGED FROM 25- 50 MG.; RECORDED 05/13/20 12 3:41PM BY ALLA BAUM MA, ANNOTATI ON/ADDEN GEORGE LICONA-C [address] [facility] [address], [place], [address], [facility] 6 15:45:51 Low back pain 844168275 Completed 201102/08/2014 RECORDED 05/13/20 12 3:41PM BY ALLA BAUM MA, ANNOTATI ON/ADDEN DUM BRODY Roberts [address] [facility] [address], [place], [address], [facility] 2 10:36:13 Shoulder joint pain 373069877 Completed 201102/08/2014 STORY: R SIDED, X PAST TWO WEEKS WITHOUT HX OF TRAUMA OR INJURY RECENT OR PAST. WITH ASSOCIAT ED WEAKNESS , MINIMAL RESP TO NSAID. WILL CONTACT [facility] TO SEE IF THEY ARE ABLE TO SEE HER SOON, IF NOT WILL CHECK XRAYS WHILE AWAITING APPT.; RECORDED 05/13/20 12 3:41PM BY ALLA BAUM MA, MAYR CARMEN ON/ADDEN DUM Susan RHODESC [address], [place], [address], [facility] 6 15:45:51 Disorder of upper respirat ory system Completed 201102/08/2014 RECORDED 05/13/20 12 3:41PM BY ALLA BAUM MA, MARY CARMEN ON/ADDEN GEORGE RHODESC [address], [place], [address], [facility] 6 15:45:51 Acute upper respirat ory infectio n 44770443 Completed 201102/08/2014 IMPRESSI ON: 5 DAYS, NO FEVERS AND NO FOCAL SIGNS ON EXAM. LIKELY VIRAL, ADVISED RE REST, FLUIDS AND OTHER SX SUPPORT. CALL FOR WORSENIN G/PRN.; RECORDED 05/13/20 12 3:41PM BY ALLA BAUM MA, MARY CARMEN ON/ADDEN GEORGE RHODESC [address], [place], [address], [facility] 6 15:45:51 Vernal conjunct ivitis 448172063 Completed 201102/08/2014 RECORDED 05/13/20 12 3:41PM BY ALLA BAUM MA, MARY CARMEN ON/LUIS RHODES [address] [facility] [address], [place], [address], [facility] 6 15:45:51 Acute pharyngi tis 301103218 Completed 201102/09/2014 RECORDED 05/13/20 12 3:41PM BY ALLA BAUM MA, MARY CARMEN ON/ADDEN GEORGE Healy MD [address], [place], [address], [facility] 7 10:24:09 Screenin g for malignan t neoplasm of cervix Completed 201102/09/2014 RECORDED 05/13/20 12 3:41PM BY ALLA BAUM MA, MARY CARMEN ON/LUIS De Oliveira PA-C [address] [facility] [address], [place], [address], [facility] 6 15:45:51 Epigastr ic pain 17712346 Completed 201102/09/2014 IMPRESSI ON: PROBABLE GASTRITI S D/T RECENT NSAIDS AND PREDNISO NE TAPER, NO LONGER TAKING EITHER; RECORDED 05/13/20 12 3:41PM BY ALLA BAUM MA, ANNOTATI ON/LUIS De Oliveira PA-C [address] [facility] [address], [place], [address], [facility] 6 15:45:51 Malaise and fatigue 899489858 Completed 201102/09/2014 IMPRESSI ON: PER PT REPORT WITH SIG INCREASE D STRESS LEVELS RECENTLY . SEES THERAPIS T WEEKLY, REC INCREASI NG ZOLOFT DOSE. CHANGED FROM 25- 50 MG.; RECORDED 05/13/20 12 3:41PM BY ALLA BAUM MA, ANNOTATI ON/LUIS De Oliveira PA-C [address] [facility] [address], [place], [address], [facility] 6 15:45:51 Low back pain 899706485 Completed 201102/09/2014 RECORDED 05/13/20 12 3:41PM BY ALLA BAUM MA, ANNOTATI ON/BRODY Howard [address] [facility] [address], [place], [address], [facility] 2 10:36:13 Shoulder joint pain 700868671 Completed 201102/09/2014 STORY: R SIDED, X PAST [...] [address], [place], [address], [facility] 6 15:45:51 Disorder of upper respirat ory system Completed 201102/09/2014 RECORDED 05/13/20 12 3:41PM BY ALLA BAUM MA, MARY CARMEN ON/LUIS Ruffinden AK-C [address], [place], [address], [facility] 6 15:45:51 Acute upper respirat ory infectio n [id number] Completed 201102/09/2014 IMPRESSI ON: 5 DAYS, NO FEVERS AND NO FOCAL SIGNS ON EXAM. LIKELY VIRAL, ADVISED RE REST, FLUIDS AND OTHER SX SUPPORT. CALL FOR WORSENIN G/PRN.; RECORDED 05/13/20 12 3:41PM BY ALLA BAUM MA, MARY CARMEN ON/LUIS Davis De Oliveira AK-C [address], [place], [address], [facility] 6 15:45:51 Vernal conjunct ivitis 656100513 Completed 201102/09/2014 RECORDED 05/13/20 12 3:41PM BY ALLA BAUM MA, MARY CARMEN ON/LUIS Orozcooria De Oliveira AK-C [address], [place], [address], [facility] 6 15:45:51 Bronchit is [id number] Completed 201201/16/2014 RECORDED 07/28/19 13 1:45AM BY ALLA BAUM MA, ANNOTATI ON/LUIS Davis De Oliveira AK-C [address], [place], [address], [facility] 6 15:45:51 Bronchit is [id number] Completed 201202/08/2014 RECORDED 07/28/19 13 1:45AM BY ALLA BAUM MA, ANNOTATI ON/ADDEN DUM Susan De Oliveira PA-C [address], [place], [address], [facility] 6 15:45:51 Bronchit is [id number] Completed 201202/09/2014 RECORDED 07/28/19 13 1:45AM BY ALLA BAUM MA, ANNOTATI ON/ADDEN DUM Susan De Oliveira PA-C [address], [place], [address], [facility] 6 15:45:51 Follow-u p encounte r Completed 201201/16/2014 RECORDED 08/31/19 13 1:39PM BY RHONDA PETERSEN MA, ANNOTATI ON/ADDEN DUM Susan De Oliveira PA-C [address] [facility] [address], [place], [address], [facility] 6 15:45:51 Disorder of rotator cuff Completed 201201/16/2014 IMPRESSI ON: SUSPECT SUPRASPI NATUS TENDON TEAR. 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 FURTHER F/U THROUGH [facility]PL[facility]. SHE WILL TAKE NSAID PRN AND ICE. MAY RETURN TO WORK.; RECORDED 08/31/19 13 1:39PM BY RHONDA PETERSEN MA, ANNOTCHARLENE ON/ADDEN DUM Susan De Oliveira PA-C [address], [place], [address], [facility] 6 15:45:51 Follow-u p encounte r Completed 201202/08/2014 RECORDED 08/31/19 13 1:39PM BY RHONDA PETERSEN MA, ANNOTCHARLENE ON/ADDEN DUM Susan De Oliveira PA-C [address] [facility] [address], [place], [address], [facility] 6 15:45:51 Disorder of rotator cuff Completed 201202/08/2014 IMPRESSI ON: SUSPECT SUPRASPI NATUS TENDON TEAR. 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 FURTHER F/U THROUGH [facility]. SHE WILL TAKE NSAID PRN AND ICE. MAY RETURN TO WORK.; RECORDED 08/31/19 13 1:39PM BY RHONDA PETERSEN MA, MARY CARMEN ON/ADDEN DUM Susan LICONA-C [address], [place], [address], [facility] 6 15:45:51 Follow-u p encounte r Completed 201202/09/2014 RECORDED 08/31/19 13 1:39PM BY RHONDA PETERSEN MA, MARY CARMEN ON/ADDEN DUM Susananita LICONA-C [address] [facility] [address], [place], [address], [facility] 6 15:45:51 Disorder of rotator cuff Completed 201202/09/2014 IMPRESSI ON: SUSPECT SUPRASPI NATUS TENDON TEAR. 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 FURTHER F/U THROUGH [facility]. SHE WILL TAKE NSAID PRN AND ICE. MAY RETURN TO WORK.; RECORDED 08/31/19 13 1:39PM BY RHONDA PETERSEN MA, MARY CARMEN ON/ADDMOHNA DUM Susna RHODESC [address] [facility] [address], [place], [address], [facility] 6 15:45:51 Adult health examinat ion Completed 201303/18/2016 Yvette martines [place] null, [facility] 6 09:23:31 Anxiety state 213957534 Completed 201312/30/2016 Peyman Healy MD [address] [facility] [address], [place], [address], [facility] 7 10:23:44 Backache 526581191 Completed 201301/16/2014 IMPRESSI ON: > 1 WEEK OF WORSENIN G BACK PAIN, UNABLE TO STAND UPRIGHT, LEGS GIVING OUT. PAIN NOW RADIATIN G INTO BUTTOCKS AND ANTERIOR THIGHS. MRI REVEALED SCHMORL' S NODES, OTHERWIS E NEG. TO PSS FOR FURTHER EVAL.; RECORDED 10/05/19 14 2:28PM BY YVETTE NUNEZ MA, MARY CARMEN ON/ADDEN DUM Susan LICONA-C [address], [place], [address], [facility] 6 15:45:51 Acute bronchit is [id number] Completed 201301/16/2014 IMPRESSI ON: LIKELY MOSTLY VIRAL SXS, HOWEVER DUE TO SMOKING STATUS AND RISK OF BACTERIA L BRONCHIT IS OR PNA TO TX WITH ABX. REST, FLUIDS, COUGH MED AT NIGHT PRN. CALL FOR WORSENIN G/PRN.; RECORDED 10/05/19 14 2:26PM BY YVETTE NUNEZ MA, MARY CARMEN ON/ Susanyimi LICONA-C [address] [facility] [address], [place], [address], [facility] 6 15:45:51 Cough [id number] Completed 201301/16/2014 IMPRESSI ON: POSSIBLE PNEUMONI A WITH THE FOCAL RALES. IF SHE DOES NOT IMPROVE WITH THE ABX SHE WILL GET A CXR.; RECORDED 10/05/19 14 2:26PM BY YVETTE NUNEZ MA, MARY CARMEN ON/ Conrado LICONA-C [address] [facility] [address], [place], [address], [facility] 5 09:10:19 Tobacco dependen ce syndrome 62260312 [facility] 09:24:07 Tobacco dependen ce syndrome 32252121 Completed 201301/16/2014 RECORDED 10/05/19 14 2:27PM BY YVETTE NUNEZ MA, ANNOTATI ON/ADDEN GABRIELA Coburn [facility] 6 09:24:07 Diarrhea 45554447 Completed 201301/16/2014 RECORDED 10/05/19 14 2:25PM BY YVETTE NUNEZ MA, ANNOTATI ON/ADDEN DUM Susanyimi De Oliveira PA-C [address], [place], [address], [facility] 6 15:45:51 Dysuria 59105962 Completed 201312/30/2016 RECORDED 10/05/19 14 2:30PM BY YVETTE NUNEZ MA, OFFICE VISIT Peyman Healy MD [address], [place], [address], [facility] 7 10:24:17 Elevated blood-pr essure reading without diagnosi s of hyperten margaret 530992246 Completed 201305/03/2025 Conrado De Oliveira PA-C [address], [place], [address], [facility] 5 09:19:58 Gastroes ophageal reflux disease 717532262 Active 2013 GABRIELA Coburn, [facility] 6 09:23:24 Headache 93533983 Completed 201301/16/2014 RECORDED 10/05/19 14 2:28PM BY YVETTE NUNEZ MA, ANNOTATI ON/ADDEN DUM Susan De Oliveira PA-C [address], [place], [address], [facility] 6 15:45:51 Hyperlip idemia 59334186 Completed 201312/30/2016 BRODY Roberts [address], [place], [address], [facility] 2 14:05:28 Acute lymphade nitis 15964976 Completed 201301/16/2014 IMPRESSI ON: PT VERY ANXIOUS [...] [address], [place], [address], [facility] 6 15:45:51 Psoriasi s 5003997 Active 2013 Yvette martines [place] null, [facility] 6 09:24:04 Disorder of bursa of shoulder region 51098971 Completed 201305/03/2025 Conrado De Oliveira PA-C [address], [place], [address], [facility] 5 09:11:46 Temporom andibula r joint disorder 97339652 Completed 201305/03/2025 Conrado De Oliveira PA-C [address], [place], [address], [facility] 5 09:11:59 Candidal vulvovag initis 90699988 Completed 201301/16/2014 IMPRESSI ON: TENDS TO GET YEAST INFECTIO NS WITH ABX; RECORDED 10/05/19 14 2:26PM BY YVETTE NUNEZ MA, ANNOTATI ON/ADDEN DUM Susan De Oliveira PA-C [address], [place], [address], [facility] 6 15:45:51 Backache 779471760 Completed 201302/08/2014 IMPRESSI ON: > 1 WEEK OF WORSENIN G BACK PAIN, UNABLE TO STAND UPRIGHT, LEGS GIVING OUT. PAIN NOW RADIATIN G INTO BUTTOCKS AND ANTERIOR THIGHS. MRI REVEALED SCHMORL' S NODES, OTHERWIS E NEG. TO PSS FOR FURTHER EVAL.; RECORDED 10/05/19 14 2:28PM BY YVETTE NUNEZ MA, MARY CARMEN ON/LUIS LICONA-C [address], [place], [address], [facility] 6 15:45:51 Acute bronchit is 04340311 Completed 201302/08/2014 IMPRESSI ON: LIKELY MOSTLY VIRAL SXS, HOWEVER DUE TO SMOKING STATUS AND RISK OF BACTERIA L BRONCHIT IS OR PNA TO TX WITH ABX. REST, FLUIDS, COUGH MED AT NIGHT PRN. CALL FOR WORSENIN G/PRN.; RECORDED 10/05/19 14 2:26PM BY YVETTE NUNEZ MA, ANNOTATI ON/LUIS LICONA-C [address], [place], [address], [facility] 6 15:45:51 Cough [id number] Completed 201302/08/2014 IMPRESSI ON: PRODUCTI VE COUGH X 10D, + TOBACCO, WILL TX, ADVISE TO STOP SMOKING, RTC IF PERSISTE NT OR WORSENIN G SYMPTOMS .; RECORDED 10/05/19 14 2:26PM BY YVETTE NUNEZ MA, ANNOTATI ON/LUIS De Oliveira PA-C [address], [place], [address], [facility] 5 09:10:19 Diarrhea [id number] Completed 201302/08/2014 RECORDED 10/05/19 14 2:25PM BY YVETTE NUNEZ MA, MARY CARMEN ON/LUIS RHODESC [address], [place], [address], [facility] 6 15:45:51 Headache [id number] Completed 201302/08/2014 RECORDED 10/05/19 14 2:28PM BY YVETTE NUNEZ MA, MARY CARMEN ON/ADDEN GEORGE De Oliveira PA-C [address], [place], [address], [facility] 6 15:45:51 Acute lymphade nitis 74281525 Completed 201302/08/2014 IMPRESSI ON: PT VERY ANXIOUS [...] [address], [place], [address], [facility] 6 15:45:51 Candidal vulvovag initis 61865401 Completed 201302/08/2014 IMPRESSI ON: TENDS TO GET YEAST INFECTIO NS WITH ABX; RECORDED 10/05/19 14 2:26PM BY YVETTE NUNEZ MA, MARY CARMEN ON/ADDMOHAN LICONA-C [address], [place], [address], [facility] 6 15:45:51 Backache [id number] Completed 201302/09/2014 IMPRESSI ON: > 1 WEEK OF WORSENIN G BACK PAIN, UNABLE TO STAND UPRIGHT, LEGS GIVING OUT. PAIN NOW RADIATIN G INTO BUTTOCKS AND ANTERIOR THIGHS. MRI REVEALED SCHMORL' S NODES, OTHERWIS E NEG. TO PSS FOR FURTHER EVAL.; RECORDED 10/05/19 14 2:28PM BY YVETTE NUNEZ MA, MARY CARMEN ON/ADDMOHAN Davis [facility] [address], [place], [address], [facility] 6 15:45:51 Acute bronchit is [id number] Completed 201302/09/2014 IMPRESSI ON: LIKELY MOSTLY VIRAL SXS, HOWEVER DUE TO SMOKING STATUS AND RISK OF BACTERIA L BRONCHIT IS OR PNA TO TX WITH ABX. REST, FLUIDS, COUGH MED AT NIGHT PRN. CALL FOR WORSENIN G/PRN.; RECORDED 10/05/19 14 2:26PM BY YEVTTE NUNEZ MA, MARY CARMEN ON/ADDMOHAN Davis [facility] [address] [facility] [address], [place], [address], [facility] 6 15:45:51 Cough [id number] Completed 201302/09/2014 IMPRESSI ON: PRODUCTI VE COUGH X 10D, + TOBACCO, WILL TX, ADVISE TO STOP SMOKING, RTC IF PERSISTE NT OR WORSENIN G SYMPTOMS .; RECORDED 10/05/19 14 2:26PM BY YVETTE NUNEZ MA, MARY CARMEN ON/ADDEN DUM Conrado De Oliveira AK-C [address] [facility] [address], [place], [address], [facility] 5 09:10:19 Diarrhea 83056057 Completed 201302/09/2014 RECORDED 10/05/19 14 2:25PM BY YVETTE NUNEZ MA, MARY CARMEN ON/LUIS Davis [facility] [address], [place], [address], [facility] 6 15:45:51 Headache [id number] Completed 201302/09/2014 RECORDED 10/05/19 14 2:28PM BY YVETTE NUNEZ MA, ANNOTATI ON/LUIS De Oliveira PA-C [address], [place], [address], [facility] 6 15:45:51 Acute lymphade nitis 30958288 Completed 201302/09/2014 IMPRESSI ON: PT VERY ANXIOUS [...] [address], [place], [address], [facility] 6 15:45:51 Candidal vulvovag initis 51035290 Completed 201302/09/2014 IMPRESSI ON: TENDS TO GET YEAST INFECTIO NS WITH ABX; RECORDED 10/05/19 14 2:26PM BY YVETTE NUNEZ MA, [facility] Susan De Oliveira PA-C [address], [place], [address], [facility] 6 15:45:51 Glucose level outside referenc e range 916389588 Completed 201312/30/2016 Peyman Healy MD [address], [place], [address], [facility] 7 10:23:38 Anemia of pregnanc y 54900761 Completed 201512/30/2016 Peyman Healy MD [address], [place], [address], [facility] 7 10:23:35 Generali zed anxiety disorder 06509079 Active 2016 GABRIELA Coburn, [facility] 7 11:53:56 Primary biliary cholangi tis 90016797 Active 2019 Noah Sanchez, [facility] [address] [address], [place], [address], [facility] 0 10:57:26 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 no other organs. nephrect sandoval 09/2019 Removal Reason: radical nephrect sandoval 09/2019 Lynda ortega [facility] 3 15:23:27 Neoplasm of left kidney 63156617216 659779 Completed 202004/27/2023 Removal Reason: radical nephrect sandoval 09/2019 Lynda ortega [facility] 3 15:23:00 Low back pain 038796599 Active 2021 RECORDED 05/13/20 12 3:41PM BY ALLA BAUM MA, ANNOTATI ON/ADDEN DUM Noah Sanchez, [facility] [address] [place] [address], [place], [address], [facility] 2 10:36:13 Plantar fasciiti s of right foot 82717140225 175658 Completed 202105/03/2025 Conrado De Oliveira PA-C [address] [address], [place], [address], [facility] 5 09:11:38 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 09277762033 636361 Active 2021 Noah Sanchez [facility] [address] [address], [place], [address], [facility] 2 13:54:13 Hyperlip idemia 05895091 Active 2021 Noah Sanchez, [facility] [address], [place], [address], [facility] 2 14:05:27 Fatigue 81808768 Completed 202105/03/2025 Conrado De Oliveira PA-C [address], [place], [address], [facility] 5 09:10:48 Impaired fasting glycemia 484653099 Active 2021 Noah Sanchez, [facility] [address], [place], [address], [facility] 2 14:05:59 Pain of left hip joint 72092617110 9100 Completed 202105/03/2025 Conrado De Oliveira PA-C [address], [place], [address], [facility] 5 09:11:50 Obesity 105369140 Active 2022 [facility] 3 15:21:38 Cough 03646614 Completed 202305/03/2025 IMPRESSI ON: PRODUCTI VE COUGH X 10D, + TOBACCO, WILL TX, ADVISE TO STOP SMOKING, RTC IF PERSISTE NT OR WORSENIN G SYMPTOMS .; RECORDED 10/05/19 14 2:26PM BY YVETTE NUNEZ MA, ANNOTATI ON/ADDEN DUM Conrado De Oliveira PA-C [address], [place], [address], [facility] 5 09:10:19 COVID-19 379498083 Completed 202305/03/2025 Conrado De Oliveira PA-C [address], [place], [address], [facility] 5 09:11:55 Fever 131716616 Completed 202305/03/2025 Conrado De Oliveira PA-C [address], [place], [address], [facility] 5 09:10:27 Vitamin D deficien cy 18710376 Active 2023 BRODY Roberts [address] [facility] [address], [place], [address], [facility] 4 15:27:42 Acute right otitis media 793554764 Completed 202405/03/2025 Conrado De Oliveira PA-C [address], [place], [address], [facility] 5 09:12:07 History of primary malignan t neoplasm of kidney 223671583 Active 2024 Conrado De Oliveira PA-C [address], [place], [address], [facility] 5 09:19:00 Bilatera l carpal tunnel syndrome 21109122400 344767 Active 2024 Conrado De Oliveira PA-C [address] [facility] [address], [place], [address], [facility] 5 09:54:43 Problem Notes None recorded. Procedures Surgical History Date Name Laterality Status Provider Name and Address Organization Details Recorded Time 09/07/19 25 Most Recent Mammogram completed Emili Martinez [facility] 09/12/2024 12:55:45 07/14/19 23 Mammogram Screening completed Danielle Rodriguez [facility] 07/14/2022 16:24:36 05/05/20 22 fasciotomy of foot completed BRODY Roberts [address] [facility] [address], [place], [address], [facility] 04/27/2023 09:18:39 09/07/19 20 radical nephrectomy completed Greta Glasgow [facility] 09/11/2019 15:28:04 09/07/19 20 Cancer Surgery completed Sherlyn Brown MA [facility] 03/27/2021 08:40:34 07/14/19 17 Date of Last Colonoscopy completed Yvette slaughter [place] [facility] 12/30/2016 10:13:20 07/14/19 17 Colonoscopy completed Noah Sanchze, [facility] [address] [address], [place], [address], [facility] 02/14/2019 15:53:00 02/11/20 07 delivery completed Yvette Westbrook-Cristhian slaughter [facility] 02/14/2019 15:32:01 01/14/20 04 Caesarean Section completed Yvette slaughter [facility] 02/14/2019 15:31:51 09/03/19 00 Tonsillectomy completed Sherlyn Brown MA [facility] 03/27/2021 08:40:34 Tubal Ligation completed Yvette slaughter, [facility] 11/21/2014 14:01:10 Tonsillectomy completed Sherlyn Brown MA [facility] 03/27/2021 08:40:34 Imaging Results None recorded. [...] infec tion in the past GABRIELA Coburn [facility] 5 12:49:17 2838 Keflex medicatio n itching Not available Not available 01/16/2014201316 7 RxNorm GABRIELA Coburn [facility] 5 12:49:17 2839 Product containin g penicilli n (product) medicatio n Not available Not available Not available 01/16/20142013 63787 8001 SNOMED REACT ION: AMOX, CAUSE S YEAST INFEC TIONS ; COMME NT: RECOR DED 10/04 2:30P M BY SRINIVAS HUERTA MA, OFFIC E VISIT ; Peyman Healy MD [address] [facility] [address], [place], [address], [facility] 5 16:56:28 49487 Non-stero idal anti-infl ammatory agent (substanc e) medicatio n other moderate low 04/21/2022 73720 5008 SNOMED 1 BRODY Schrader [address] [facility] [address], [place], [address], [facility] 2 13:55:13 46039 cephalexi n medicatio n Not available Not available Not available 05/28/20252023 2231 RxNorm Not Available rqauel - External Data Service - prod 5 [...] Updated DateTime 5 158.75 cm 35.3 kg/m2 49548.2 g 81 /min 99 % 98.2 [degF] 133/79 mm[Hg] Estefania Callahan MA [facility] 5 08:43:23 Social History Question Answer Notes LastModified by Organizat ion Details LastModified Time Tobacco Smoking Status Former Smoker pt quit 09/2019 GABRIELA Waller, [facility] 03/26/2020 10:39:09 Do You Have An [...] Did You Quit Smoking? 1-5yearssin atilio leigh [email or web address] Information not available 03/27/2021 Live Alone Or [...] Or Greater Than 100 Degrees Fahrenheit? No [email or web address] Information not available 03/26/2020 Are You Or Anyone In Your Household A Health Care Provider Or Emergency Responder? Yes [email or web address] Information not available 03/26/2020 To The Best Of Your Knowledge Have You Been In Close Proximity To Any Individual Who Tested Positive For COVID-19? No [email or web address] Information not available 03/26/2020 Have You Recently Traveled To A COVID-19 High Risk Area Or Gathering In The Last 10 Days? No [email or web address] Information not available 07/23/2020 What Was The Date Of Your Most Recent Tobacco Screening? 05/03/2025 Information not available 05/03/2025 How Many Children Do You Have? 2 Gabriel And Jas Information not available 12/30/2016 What Is Your Current Pack Years? 10packyears Information not available 05/03/2025 Do You Use Your Seat Belt Or Car Seat Routinely? 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 [employer] [facility] Information not available 05/03/2025 Do you or [...] available 10:40:59 Father Malignant neoplasm of lung [email or web address] Not available 03/27 08:40:16 Father Kidney disease Not available 03/27 08:40:16 Mother Malignant neoplasm of uterus molar pregna ncy- hyster ectomy Not available 04/23/2022 10:40:59 Mother Opioid dependence Not available 04/23 10:40:59 Mother Substance abuse [email or web address] Not available 03/27 08:40:16 Mother Seizure disorder [email or web address] Not available 03/27 08:40:16 Mother Osteoporosis [email or web address] Not vasile ilable 03/27/2021 08:40:16 Mother Disorder of thyroid gland Not available 2021 10:40:59 Brother Essential hypertension 45 possib ly Not available 04/23/2022 10:40:59 Brother Harmful pattern of use of alcohol phelmuth Not available 2017 15:39:14 Brother Depressive disorder [email or web address] Not available 03/27 08:40:16 Maternal Grandfather Opioid dependence Not available 04/23 10:40:59 Unspecified Relation Substance abuse [email or web address] Not available 03/27 08:40:16 Son Allergy Not [...] trivalent, preservative 6 completed Yvette Swain MA [facility] 12/30/2016 10:11:22 Influenza, split virus, quadrivalent, preservative 8 completed [facility] 10:03:42 Influenza, split virus, quadrivalent, preservative 9 completed Mt Flores MA [facility] 06/14/2019 09:27:56 COVID-19, mRNA, LNP-S, PF, 100 mcg/0.5mL dose or 50 mcg/0.25mL dose 0 completed Sandra Mcconnell MA [facility] 09/12/2021 10:18:38 Influenza, split virus, quadrivalent, PF 1 completed GABRIELA Herbert, [facility] 09/12/2021 10:18:38 COVID-19, mRNA, LNP-S, PF, 100 mcg/0.5mL dose or 50 mcg/0.25mL dose 1 completed GABRIELA Herbert, [facility] 09/12/2021 10:18:38 Influenza, split virus, quadrivalent, PF 7 completed GABRIELA Herbert, [facility] 09/12/2021 10:18:39 Influenza, split virus, trivalent, preservative 5 completed GABRIELA Valadez, [facility] 12/24/2021 10:23:35 Influenza, split virus, quadrivalent, PF 3 completed GABRIELA Valadez, [facility] 07/13/2023 11:16:35 Influenza, split virus, trivalent, PF 4 completed Not Available [facility] 05/03/2025 08:38:15 Influenza, split virus, trivalent, PF 5 completed Not Available [facility] 05/03/2025 08:38:15 Tdap 1 completed Not Available [facility] 01/16/2014 13:38:10 Influenza, split virus, quadrivalent, PF 0 completed GABRIELA Waller, [facility] 03/26/2020 10:48:58 Tdap 1 completed GABRIELA Carrizales, [facility] 03/27/2021 10:06:49 Influenza, split virus, quadrivalent, PF 2 completed MILA Roberts [address], [address], [facility] 04/23/2022 11:29:33 Past Encounters Encounter ID Performer Location Encounter Start Date Encounter Closed Date Diagnosis/Indication Diagnosis SNOMED-CT Code Diagnosis ICD10 Code Diagnosis IMO Codes Diagnosis Note [id number] Sim Garcia MD Main Office [address] [facility] [address] [place] [address] 05/03/2025 08:36:04 05/03/2025 09:41:05 Adult health examination 890241917 Z00.00 colon utd - next 1.27mammo, pap utd Vitamin D deficiency 347 68328 E55.9 Primary bi liary cholangitis 56542442 K74.3 stable, cont med as dir, cont f/u c gi Psoriasis 2671098 L40.9 stable, cont f/u c derm q yr Fatigue 69016191 R53.83 9580974 Impaired f asting glycemia 420733332 R73.01 400895 Hyperlipidemia 59552950 E78.5 Generalize d anxiety disorder 87056666 F41.1 stable, cont med as dir, cont f/u c therapist History of primary malignant neoplasm of kidney 793068056 Z85.528 17172945 stable, cont f/u c uro q yr Bilateral carpal tunnel syndrome 2711244901 3468966 G56.03 707362 pending B sx - [facility] Body mass index 30+ - obesity 328180342 E66.9 Z68.35 cont f/u c nutritioni st, walk, plenty of sleep - but naps a lot - see snoring below Snoring 74066425 R06.83 25023 will get sleep med eval Health Concerns Section Related Observation LastModified by Organization Detai ls LastModified Time None Recorded Concern Status LastModified by Organization Details LastModified Time None Recorded Payers Encounter Date Sequence Insurance Name Policy Number Policy Ward Covered Member ID Ward Member ID Guarantor Name 05/03/2025 1 [employer] [facility] [id number] Tere Junior [id number] Tere Junior Notes Date Note Type Note Provider Name and Address Organization Details Recorded Time 05/03/2025 text/html Generic HPI TemplateReported by Patient here for annual pe. Conrado De Oliveira PA-C [address] [facility] [address], [place], [address], [facility] 05/06/2025 09:55:57 OBGyn Episode No OBEpisode recorded.
--- OUTSIDE RECORDS SUMMARY | 2025-06-26 13:34 | XMS_ITS | Patient Health Record ---
[facility] Address [address] [place] [address] Care Team Providers Care [place] Attendant Name Role Phone Noah Sanchez PA-C Primary Care Provider Ludivina Jewell Unavailable [phone] Allergies Allergen (clinical drug ingredient) Drug/Non Drug [...] cast boot at work as needed 07/26/2019 Not-jB g Physical Therapy . . . 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
--- OUTSIDE RECORDS SUMMARY | 2025-06-26 13:34 | XMS_ITS | Data Portability ---
Author Organization [facility], Main Office Address [address] [facility] [address] [place] [address] Care Team Providers Care Production Control Specialist Name Role Phone LAURA NAIK Air Brush Decorator SANDRA NIETO Maintenance Porter GILMER MARTINO Pole Shaver [phone] ODILIA DOYLE Urologist TRESA BERRY Urologist ALLAN DE OLIVEIRA Primary Care Provider [phone] Assessment No assessment recorded. Plan of Treatment Reminders Order Date Submit Date Provider Last Modified By Organization Details Last Modified Time Details Appointments FOLLOW UP 30MIN 2025 04:00P M Allan De Oliveira PAKatarzyna Not available Not available Not available Lab lipid panel, serum 2024 [facility] (Lab), [address] [place] [address], [id number], 05/03/2025 09:30:54 CMP, serum or plasma 2024 025 [facility] (Lab), [address] [place] [address], [id number], 06/16/2025 10:24:03 TSH, ultra- sensit cj, serum 2024 025 [facility] (Lab), [address] [place] [address], [id number], 05/03/2025 09:30:55 CBC w/ auto diff 2024 [facility] (Lab), [address] [place] [address], [id number], 05/03/2025 09:30:54 HbA1c (hemog lobin A1c), blood 2024 [facility] (Lab), [address] [place] [address], [address], 05/03/2025 09:30:55 vitami n D, 25-hyd tim, total, serum 2024 [facility], [address] [facility] [place], [address], 05/03/2025 09:29:47 vitami n D, 25-hyd tim, total, serum 2024 [facility] (Lab), [address] [place] [address], [address], 11/29/2024 12:06:32 TSH, serum or plasma 2024 [facility] (Lab), [address] [place] [address], [id number], 06/26/2025 04:03:49 lyme antibo dy screen , EIA/el josesito, serum 2024 [facility] (Lab), [address] [place] [address], [address], 11/28/2024 10:16:46 C-reac tive protei n, quanti tative , serum or plasma 2024 025 [facility] (Lab), [address] [place] [address], [address], 11/28/2024 10:18:19 ESR (eryth rocyte sedime ntatio n rate), blood 2024 [facility] (Lab), [address] [place], [address], 11/29/2024 12:06:33 CMP, serum or plasma 2024 025 [facility] (Lab), [address] [place], [address], 11/29/2024 12:06:30 CBC 2024 025 [facility] (Lab), [address] [place], [address], 11/28/2024 10:18:19 rapid flu (A+B) 2024 025 [facility] In-Office Order, Internal Use Only DO Not Attach Compendium DO Not Attach Compendium, Do Not Delete/merge, [id number] 07/06/2024 11:16:34 rapid SARS CoV 2 Ag, QL IA, respir atory specim en 2024 025 [facility] In-Office Order, Internal Use Only DO Not Attach Compendium DO Not Attach Compendium, Do Not Delete/merge, [id number] 07/06/2024 11:09:10 CMP, serum or plasma 2023 024 [facility] (Lab), [address] [place] [address], [address], 05/12/2024 11:32:57 lipid panel, serum 2023 024 [facility] (Lab), [address] [place], [address], 05/12/2024 11:32:57 TSH, serum or plasma 2023 024 [facility] (Lab), [address] [place], [address], 11/29/2024 09:28:10 T4, free, serum 2023 024 [facility] (Lab), [address] [place], [address], 05/02/2024 15:28:53 HbA1c (hemog lobin A1c), blood 2023 024 [facility] (Lab), [address] [place] [address], [address], 05/02/2024 15:28:52 vitami n D, 25-hyd tim, total, serum 2023 024 [email or web address], [address], [place], [address], 07/31/2024 09:12:11 CBC w/ auto diff 2023 024 [facility] (Lab), [address] [place] [address], [address], 11/29/2024 12:06:29 rapid flu (A+B) 2023 024 [facility]QU[facility] In-Office Order, Internal Use Only DO Not Attach Compendium DO Not Attach Compendium, Do Not Delete/merge, [id number] 07/13/2023 11:40:33 rapid SARS CoV 2 Ag, QL IA, respir atory specim en 2023 024 [facility] In-Office Order, Internal Use Only DO Not Attach Compendium DO Not Attach Compendium, Do Not Delete/merge, [id number] 07/13/2023 12:02:21 Referral sleep medici ne referr al 2024 025 [facility]/Sleep Depart, [address] [place] [address] Jaden Moser, [place], [address], 05/09/2025 11:48:08 nutrit ionist /dieti ranjan referr al 2024 025 Not available 05/03/2025 11:39:29 Procedures None record ed. Surgeries None record ed. Imaging XR, chest - cough, fever, chills , chest pain, r/o PNA 2023 024 [facility] ([facility] [address] [facility], [place], [address], 07/13/2023 13:39:20 Medication Orders clardavid hromyc in 500 mg tablet 2024 025 [facility]/Pharmacy #[id number], [address] [place], [address], 11/28/2024 09:35:26 sertra line 25 mg tablet 2023 024 [facility]/Pharmacy #0315, [address] [place], [address], 06/13/2025 16:58:41 Patient Targets Encounter Date Encounter Id Patient Goals Patient Target Last Modified By Organization Details Last Modified Time 05/03/2025 [id number] half-way goal of Excess Body Weight Loss % 5 Not available Not available Not available 05/03/2025 [id number] Pt advised and agrees to work on [...] By Organization Details Last Modified Time 07/13/2023 [id number] 10 things to do when you have covid-19 jthabet Not available 07/13/2023 12:12:37 coronavirus (covid-19): care instructions jthabet Not available 07/13/2023 12:12:37 To call or return for worsening or concerns jthabet Not available 07/13/2023 12:13:59 05/02/2024 [id number] dash diet: care instructions jthabet Not available 05/02/2024 15:27:17 high blood pressure: care instructions jthabet Not available 05/02/2024 15:27:17 low sodium diet (2,000 milligram): care instructions jthabet Not available 05/02/2024 15:27:17 Starting a Weight-Loss Plan: Care Instructions jthabet Not available 05/02/2024 15:27:16 To call or return for worsening or concerns jthabet Not available 05/02/2024 15:32:51 07/06/2024 [id number] To call or return for worsening or concerns jthabet Not available 07/06/2024 11:04:41 11/28/2024 [id number] myalgic encephalomyeliti s/chronic fatigue syndrome: care instructions acennerazzo Not available 11/28/2024 10:15:41 05/03/2025 [id number] Well Visit, Ages 18 to 65: Care [...] Not available 05/03/2025 09:19:15 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 Corsets/dietitian Refer ral for Body mass index 30+ [...] DO Not Attach Compendium, Do Not Delete/merge, [id number] 07/13/2023 11:48:22 07/13/19 24 07/13/2023 rapid flu (A+B) Flu A negati ve Not Available In-Office Order Internal Use Only DO Not Attach Compendium DO Not Attach Compendium, Do Not Delete/merge, [id number] 07/13/2023 11:21:58 07/13/19 24 07/13/2023 rapid flu (A+B) Flu B negati ve Not Available In-Office Order Internal Use Only DO Not Attach Compendium DO Not Attach Compendium, Do Not Delete/merge, [id number] 07/13/2023 11:21:58 07/06/19 25 07/06/2024 rapid flu (A+B) Flu A negati ve Not Available In-Office Order Internal Use Only DO Not Attach Compendium DO Not Attach Compendium, Do Not Delete/merge, [facility] 07/06/2024 10:50:01 07/06/1907/06/2024 rapid flu (A+B) Flu B negati ve Not Available In-Office Order Internal Use Only DO Not Attach Compendium DO Not Attach Compendium, Do Not Delete/merge, [facility] 07/06/2024 10:50:01 07/06/19 25 07/06/2024 rapid SARS CoV 2 Ag, QL IA, respi rator y speci men RAPID SARS COV 2 negati ve Not Available In-Office Order Internal Use Only DO Not Attach Compendium DO Not Attach Compendium, Do Not Delete/merge, [id number] 07/06/2024 10:50:14 11/29/19 25 11/29/2024 CBC WITH DIFFE RENTI AL/PL ATELE T WBC 9.1 x10e3 /uL 3.4-10 .8 normal Not Available [facility] ([facility]) [address] [place], [address], 11/29/2024 12:06:29 11/29/19 25 11/29/2024 CBC WITH DIFFE RENTI AL/PL ATELE T RBC 5.05 x10e6 /uL 3.77-5 .28 normal Not Available [facility] ([facility]) [address] [place], [address], 11/29/2024 12:06:29 11/29/19 25 11/29/2024 CBC WITH DIFFE RENTI AL/PL ATELE T hemoglobin 13.2 g/dL 11.1-1 5.9 normal Not Available [facility] ([facility]) [address] [place], [address], 11/29/2024 12:06:29 11/29/1911/29/2024 CBC WITH DIFFE RENTI AL/PL ATELE T hematocrit 41.4 % 34.0-4 6.6 normal Not Available [facility] ([facility]) [address] [place], [address], 11/29/2024 12:06:29 11/29/1911/29/2024 CBC WITH DIFFE RENTI AL/PL ATELE T MCV 82 fL 79-97 normal Not Available [facility] ([facility]) [address] [place], [address], 11/29/2024 12:06:29 11/29/1911/29/2024 CBC WITH DIFFE RENTI AL/PL ATELE T MCH 26.1 pg 26.6-3 3.0 below low normal Not Available [facility] ([facility]) [address] [place], [address], 11/29/2024 12:06:29 11/29/1911/29/2024 CBC WITH DIFFE RENTI AL/PL ATELE T MCHC 31.9 g/dL 31.5-3 5.7 normal Not Available [facility] ([facility]) [address] [place], [address], 11/29/2024 12:06:29 11/29/1911/29/2024 CBC WITH DIFFE RENTI AL/PL ATELE T RDW 13.5 % 11.7-1 5.4 Not Available [facility] ([facility]) [address] [place], [address], 11/29/2024 12:06:29 11/29/1911/29/2024 CBC WITH DIFFE RENTI AL/PL ATELE T platelets 387 x10e3 /uL 150-45 0 normal Not Available [facility] ([facility]) [address] [place], [address], 11/29/2024 12:06:29 11/29/1911/29/2024 CBC WITH DIFFE RENTI AL/PL ATELE T neutrophils 57 % not estab. normal Not Available [facility] ([facility]) [address] [facility], [place], [address], 11/29/2024 12:06:29 11/29/19 25 11/29/2024 CBC WITH DIFFE RENTI AL/PL ATELE T lymphs 28 % not estab. normal Not Available [facility] ([facility]) [address] [place], [address], 11/29/2024 12:06:29 11/29/1911/29/2024 CBC WITH DIFFE RENTI AL/PL ATELE T monocytes 9 % not estab. normal Not Available [facility] ([facility]) [address] [place], [address], 11/29/2024 12:06:29 11/29/19 25 11/29/2024 CBC WITH DIFFE RENTI AL/PL ATELE T eos 5 % not estab. normal Not Available [facility] ([facility]) [address] [place], [address], 11/29/2024 12:06:29 11/29/19 25 11/29/2024 CBC WITH DIFFE RENTI AL/PL ATELE T basos 1 % not estab. normal Not Available [facility] ([facility]) [address] [place], [address], 11/29/2024 12:06:29 11/29/19 25 11/29/2024 CBC WITH DIFFE RENTI AL/PL ATELE T immature cells ENGINEER INTERN Not Available [facility] ([facility]) [address] [place], [address], 11/29/2024 12:06:29 11/29/1911/29/2024 CBC WITH DIFFE RENTI AL/PL ATELE T neutrophils (absolute) 5.3 x10e3 /uL 1.4-7. 0 normal Not Available [facility] ([facility]) [address] [facility], [place], [address], 11/29/2024 12:06:29 11/29/1911/29/2024 CBC WITH DIFFE RENTI AL/PL ATELE T lymphs (absolute) 2.5 x10e3 /uL 0.7-3. 1 normal Not Available [facility] ([facility]) [address] [facility], [place], [address], 11/29/2024 12:06:29 11/29/1911/29/2024 CBC WITH DIFFE RENTI AL/PL ATELE T monocytes(ab solute) 0.8 x10e3 /uL 0.1-0. 9 normal Not Available [facility] ([facility]) [address] [place], [address], 11/29/2024 12:06:29 11/29/1911/29/2024 CBC WITH DIFFE RENTI AL/PL ATELE T eos (absolute) 0.4 x10e3 /uL 0.0-0. 4 normal Not Available [facility] ([facility]) [address] [facility], [place], [address], 11/29/2024 12:06:29 11/29/1911/29/2024 CBC WITH DIFFE RENTI AL/PL ATELE T baso (absolute) 0.1 x10e3 /uL 0.0-0. 2 normal Not Available [facility] ([facility]) [address] [facility], [place], [address], 11/29/2024 12:06:29 11/29/1911/29/2024 CBC WITH DIFFE RENTI AL/PL ATELE T immature granulocytes 0 % not estab. Not Available [facility] ([facility]) [address] [facility], [place], [address], 11/29/2024 12:06:29 11/29/19 25 11/29/2024 CBC WITH DIFFE RENTI AL/PL ATELE T immature grans (abs) 0.0 x10e3 /uL 0.0-0. 1 Not Available [facility] ([facility]) [address] [facility], [place], [address], 11/29/2024 12:06:29 11/29/19 25 11/29/2024 CBC WITH DIFFE RENTI AL/PL ATELE T NRBC ENGINEER INTERN Not Available [facility] ([facility]) [address] [facility], [place], [address], 11/29/2024 12:06:29 11/29/19 25 11/29/2024 CBC WITH DIFFE RENTI AL/PL ATELE T hematology comments: ENGINEER INTERN Not Available [facility] ([facility]) [address] [facility], [place], [address], 11/29/2024 12:06:29 11/29/19 25 11/29/2024 COMP. METAB OLIC PANEL (14) glucose 99 mg/dL 70-99 normal Not Available [facility] ([facility]) [address] [facility], [place], [address], 11/29/2024 12:06:30 11/29/19 25 11/29/2024 COMP. METAB OLIC PANEL (14) BUN 15 mg/dL 6-24 normal Not Available [facility] ([facility]) [address] [facility], [place], [address], 11/29/2024 12:06:30 11/29/19 25 11/29/2024 COMP. METAB OLIC PANEL (14) creatinine 1.08 mg/dL 0.57-1 .00 above high normal Not Available [facility] ([facility]) [address] [facility], [place], [address], 11/29/2024 12:06:30 11/29/19 25 11/29/2024 COMP. METAB OLIC PANEL (14) eGFR 63 mL/mi n/1.7 3 >59 normal Not Available [facility] ([facility]) [address] [facility], [place], [address], 11/29/2024 12:06:30 11/29/19 25 11/29/2024 COMP. METAB OLIC PANEL (14) BUN/creatini ne ratio 14 9-23 normal Not Available [facility] ([facility]) [address] [facility], [place], [address], 11/29/2024 12:06:30 11/29/19 25 11/29/2024 COMP. METAB OLIC PANEL (14) sodium 140 mmol/ L 134-14 4 normal Not Available [facility] ([facility]) [address] [facility], [place], [address], 11/29/2024 12:06:30 11/29/19 25 11/29/2024 COMP. METAB OLIC PANEL (14) potassium 5.1 mmol/ L 3.5-5. 2 normal Not Available [facility] ([facility]) [address] [facility], [place], [address], 11/29/2024 12:06:30 11/29/19 25 11/29/2024 COMP. METAB OLIC PANEL (14) chloride 101 mmol/ L 96-106 normal Not Available [facility] ([facility]) [address] [place], [address], 11/29/2024 12:06:30 11/29/19 25 11/29/2024 COMP. METAB OLIC PANEL (14) carbon dioxide, total 23 mmol/ L 20-29 normal Not Available [facility] ([facility]) [address] [place], [address], 11/29/2024 12:06:30 11/29/19 25 11/29/2024 COMP. METAB OLIC PANEL (14) calcium 10.0 mg/dL 8.7-10 .2 normal Not Available [facility] ([facility]) [address] [place], [address], 11/29/2024 12:06:30 11/29/19 25 11/29/2024 COMP. METAB OLIC PANEL (14) protein, total 7.1 g/dL 6.0-8. 5 normal Not Available [facility] ([facility]) [address] [place], [address], 11/29/2024 12:06:30 11/29/19 25 11/29/2024 COMP. METAB OLIC PANEL (14) albumin 4.4 g/dL 3.9-4. 9 normal Not Available [facility] ([facility] [address] [place], [address], 11/29/2024 12:06:30 11/29/19 25 11/29/2024 COMP. METAB OLIC PANEL (14) globulin, total 2.7 g/dL 1.5-4. 5 Not Available [facility] ([facility]) [address] [place], [address], 11/29/2024 12:06:30 11/29/19 25 11/29/2024 COMP. METAB OLIC PANEL (14) bilirubin, total 0.3 mg/dL 0.0-1. 2 normal Not Available [facility] ([facility]) [address] [place], [address], 11/29/2024 12:06:30 11/29/19 25 11/29/2024 COMP. METAB OLIC PANEL (14) alkaline phosphatase 145 IU/L 44-121 above high normal Not Available [facility] ([facility]) [address] [place], [address], 11/29/2024 12:06:30 11/29/1911/29/2024 COMP. METAB OLIC PANEL (14) AST (SGOT) 27 IU/L 0-40 normal Not Available [facility] ([facility]) [address] [facility], [place], [address], 11/29/2024 12:06:30 11/29/1911/29/2024 COMP. METAB OLIC PANEL (14) ALT (SGPT) 40 IU/L 0-32 above high normal Not Available [facility] ([facility]) [address] [facility], [place], [address], 11/29/2024 12:06:30 11/29/1911/29/2024 TSH TSH 1.500 uIU/m L 0.450- 4.500 normal Not Available [facility] ([facility]) [address] [place], [address], 11/29/2024 12:06:31 11/29/1911/29/2024 VITAM IN D, 25-HY [...] Nicholas villa [place]: The [facility] . 2. Charlotte white MF, Kelly hernandes [place], Ashley off-F errobed i VIZCAINO, et al. Evalu ation , treat ment, and preve ntion of vitam in D defic iency : an Endoc rine Socie ty clini dheeraj pract ice guide line. JCEM. 2010; 96(7) :1911 -30. Not Available [facility] ([facility]) [address] [facility], [place], [address], 11/29/2024 12:06:32 11/29/19 25 11/29/2024 LYME DISEA [...] is recom gigi d. Not Available [facility] ([facility]) [address] [facility], [place], [address], 11/29/2024 12:06:32 11/29/19 25 11/29/2024 SEDIM ENTAT ION RATE- WESTE RGREN sedimentatio n rate-westerg angel 27 mm/HR 0-32 normal Not Available [facility] ([facility]) [address] [facility], [place], [address], 11/29/2024 12:06:33 11/29/19 25 11/29/2024 C-SASHA CTIVE PROTE IN, QUANT C-reactive protein, quant 9 mg/L 0-10 normal Not Available [facility] ([facility]) [address] [facility], [place], [address], 11/29/2024 12:06:34 07/13/19 24 07/13/2023 XR, chest No observ ation record ed. [facility] (Imaging) [address] [place] [address], [place], [address], 07/20/2023 08:53:36 08/24/19 24 08/24/2023 US, doppl er, venou s No observ ation record ed. [email or web address] [facility] (Medical Records) [address] [facility], [place], [address], 08/25/2023 08:42:01 08/30/19 24 08/30/2023 MAMMO , [...] (Negat cj) Lay letter mailed to bert aaron WSN: [id number] Orderi ng Physic yves: Laura LICONA, Ian Richard Dictat ed By: Leo Villaseñor MD Dictat ed Date/T sha: 4:38 pm Review ed By: Leo Villaseñor MD Signed By: Leo Villaseñor MD Signed Date/T sha: 4:38 pm Transc ribed By: HEATHER Transc riptio n Date/T sha: 1:13 pm Birads : Bert walker Class: Outpat ient [email or web address] [facility] (Outpt Imaging) [address], [place], [address], 08/31/2023 10:24:05 11/03/19 24 11/02/2023 CT, abdom en + pelvi s, w/ contr ast No observ ation record ed. [email or web address] [facility] [address] [place], [address], 11/03/2023 13:36:14 12/17/19 24 12/17/2023 XR, chest No observ ation record ed. [email or web address] [address] [place], [address], 12/17/2023 14:14:49 12/17/19 24 12/17/2023 CT, abdom en + pelvi s, w/o contr ast No observ ation record ed. [email or web address] [facility] (Medical Records) [address] [place], [address], 12/20/2023 08:52:21 08/18/19 25 08/17/2024 Foot and Ankle outco me score No observ ation record ed. [email or web address] Not Available 2024 11:08:15 09/07/19 25 09/06/2024 MAMMO , scree orestes, bilat eral No observ ation record ed. [email or web address] [facility] [address] [place] [address] [place], [address], 09/12/2024 12:55:54 10/25/19 25 10/24/2024 CT, chest , w/ contr ast No observ ation record ed. [email or web address] [facility] [address] [place], [address], 10/25/2024 19:39:59 10/31/19 25 10/27/2024 US, abdom en No observ ation record ed. [email or web address] [facility] [address] [place], [address], 11/14/2024 15:50:04 Result Notes Documentation Provider Name [...] (Negative) Lay letter mailed to patient WSN: [id number] Ordering Physician: Noah Miranda Dictated By: Sandra Villaseñor MD Dictated Date/Time: 08/30/23 4:38 pm Reviewed By: Sandra Villaseñor MD Signed By: Sandra Villaseñor MD Signed Date/Time: 08/30/23 4:38 pm Transcribed By: HEATHER Conveyor Technician Date/Time: 08/30/23 1:13 pm Birads: Patient Class: Outpatient Emili Martinez [facility] 08/31/2023 10:24:05 Problems Name Problem SNOMED Code Status Onset Date Resolution Date Notes Provider Name and Address Organization Details Recorded Time Wheezing symptom 357204336 Completed 12/30/2016 Peyman Healy MD [address] [facility] [address], [place], [address], [facility] 7 10:24:02 Acute sinusiti s 42989759 Completed 12/30/2016 Peyman Healy MD [address] [facility] [address], [place], [address], [facility] 7 10:23:40 Acute asthma 585066801 Completed 12/30/2016 Peyman Healy MD [address] [facility] [address], [place], [address], [facility] 7 10:24:04 Acute allergic reaction 700485796 Completed 12/30/2016 Peyman Healy MD [address] [facility] [address], [place], [address], [facility] 7 10:23:59 Fatigue 49801364 Completed 12/30/2016 Allan De Oliveira PA-C [address], [place], [place], [address], [facility] 5 09:10:48 Irritabl e bowel syndrome 14715566 Active Susan Apolinar GRISSOM [address], [place], [address], [facility] 6 15:45:51 Acute pharyngi tis 817392075 Completed 12/30/2016 Peyman Healy MD [address] [facility] [address], [place], [address], [facility] 7 10:24:09 Pain in calf 088307719 Completed 12/30/2016 Peyman Healy MD [address] [facility] [address], [place], [address], [facility] 7 10:24:07 Synovial cyst of knee 180688575 Completed 12/30/2016 Peyman Healy MD [address] [facility] [address], [place], [address], [facility] 7 10:23:54 Lumbar sprain 059877176 Completed 12/30/2016 Peyman Healy MD [address], [place], [address], [facility] 7 10:23:49 Sprain pelvic ligament 548843764 Completed 12/30/2016 Peyman Healy MD [address] [facility] [address], [place], [address], [facility] 7 10:23:46 Inflamma tion of sacroili ac joint 15037786 Completed 12/30/2016 Peyman Healy MD [address], [place], [address], [facility] 7 10:24:21 Administ ration of bacteria l and viral vaccine Completed 201001/16/2014 RECORDED 09/20/19 11 1:19PM BY BABITA ANDERSON PA-C, OFFICE VISIT Susan De Oliveira PA-C [address], [place], [address], [facility] 6 15:45:51 Administ ration of bacteria l and viral vaccine Completed 201002/08/2014 RECORDED 09/20/19 11 1:19PM BY BABITA ANDERSON PA-C, OFFICE VISIT Susan De Oliveira PA-C [address], [place], [address], [facility] 6 15:45:51 Administ ration of bacteria l and viral vaccine Completed 201002/09/2014 RECORDED 09/20/19 11 1:19PM BY BABITA ANDERSON PA-C, OFFICE VISIT Susan De Oliveira PA-C [address], [place], [address], [facility] 6 15:45:51 Acute pharyngi tis 629233819 Completed 201101/16/2014 RECORDED 05/13/20 12 3:41PM BY ALLA BAUM MA, ISAIAHATI ON/LUIS Healy MD [address], [place], [address], [facility] 7 10:24:09 Screenin g for malignan t neoplasm of cervix Completed 201101/16/2014 RECORDED 05/13/20 12 3:41PM BY ALLA BAUM MA, ANNOTATI ON/LUIS De Oliveira PA-C [address], [place], [address], [facility] 6 15:45:51 Epigastr ic pain 96838868 Completed 201101/16/2014 IMPRESSI ON: PROBABLE GASTRITI S D/T RECENT NSAIDS AND PREDNISO NE TAPER, NO LONGER TAKING EITHER; RECORDED 05/13/20 12 3:41PM BY ALLA BAUM MA, MARY CARMEN ON/ADDEN DUM Susan LICONA-C [address], [place], [address], [facility] 6 15:45:51 Malaise and fatigue 758839296 Completed 201101/16/2014 IMPRESSI ON: PER PT REPORT WITH SIG INCREASE D STRESS LEVELS RECENTLY . SEES THERAPIS T WEEKLY, REC INCREASI NG ZOLOFT DOSE. CHANGED FROM 25- 50 MG.; RECORDED 05/13/20 12 3:41PM BY ALLA BAUM MA, MARY CARMEN ON/ADDEN DUM Susan LICONA-C [address], [place], [address], [facility] 6 15:45:51 Low back pain 470483204 Completed 201101/16/2014 RECORDED 05/13/20 12 3:41PM BY ALAL ABUM MA, ANNOTATI ON/ADDEN DUM Noah Sanchez [facility] [address] [facility] [address], [place], [phone], [facility] 2 10:36:13 Adult health examinat ion Completed 201101/16/2014 RECORDED 05/13/20 12 3:41PM BY ALLA BAUM MA, ISAIAHATI ON/ADDEN DUM Diana martines MA null, [facility] 6 09:23:31 Shoulder joint pain [id number] Completed 201101/16/2014 STORY: R SIDED, X PAST TWO WEEKS WITHOUT HX OF TRAUMA OR INJURY RECENT OR PAST. WITH ASSOCIAT ED WEAKNESS , MINIMAL RESP TO NSAID. WILL CONTACT [facility] TO SEE IF THEY ARE ABLE TO SEE HER SOON, IF NOT WILL CHECK XRAYS WHILE AWAITING APPT.; RECORDED 05/13/20 12 3:41PM BY ALLA BAUM MA, MARY CARMEN ON/ADDEN GEORGE De Oliveira ND-C [address], [place], [address], [facility] 6 15:45:51 Disorder of upper respirat ory system Completed 201101/16/2014 RECORDED 05/13/20 12 3:41PM BY ALLA BAUM MA, MARY CARMEN ON/ADDEN DUM Susan LICONA-C [address], [place], [address], [facility] 6 15:45:51 Acute upper respirat ory infectio n [id number] Completed 201101/16/2014 IMPRESSI ON: 5 DAYS, NO FEVERS AND NO FOCAL SIGNS ON EXAM. LIKELY VIRAL, ADVISED RE REST, FLUIDS AND OTHER SX SUPPORT. CALL FOR WORSENIN G/PRN.; RECORDED 05/13/20 12 3:41PM BY ALLA BAUM MA, MARY CARMEN ON/LUIS DUM Susan LICONA-C [address], [place], [address], [facility] 6 15:45:51 Vernal conjunct ivitis [id number] Completed 201101/16/2014 RECORDED 05/13/20 12 3:41PM BY ALLA BAUM MA, ANNOTATI ON/LUIS LICONA-C [address], [place], [address], [facility] 6 15:45:51 Acute pharyngi tis [id number] Completed 201102/08/2014 RECORDED 05/13/20 12 3:41PM BY ALLA BAUM MA, ISAIAHATI ON/ADDEN GEORGE Healy MD [address], [place], [address], [facility] 7 10:24:09 Screenin g for malignan t neoplasm of cervix Completed 201102/08/2014 RECORDED 05/13/20 12 3:41PM BY ALLA BAUM MA, MARY CARMEN ON/LUIS De Oliveira PA-C [address] [facility] [address], [place], [address], [facility] 6 15:45:51 Epigastr ic pain [id number] Completed 201102/08/2014 IMPRESSI ON: PROBABLE GASTRITI S D/T RECENT NSAIDS AND PREDNISO NE TAPER, NO LONGER TAKING EITHER; RECORDED 05/13/20 12 3:41PM BY ALLA BAUM MA, MARY CARMEN ON/ADDEN GEORGE De Oliveira PA-C [address] [facility] [address], [place], [address], [facility] 6 15:45:51 Malaise and fatigue [id number] Completed 201102/08/2014 IMPRESSI ON: PER PT REPORT WITH SIG INCREASE D STRESS LEVELS RECENTLY . SEES THERAPIS T WEEKLY, REC INCREASI NG ZOLOFT DOSE. CHANGED FROM 25- 50 MG.; RECORDED 05/13/20 12 3:41PM BY ALLA BAUM MA, ANNOTATI ON/ADDEN DUM Susan De Oliveira PA-C [address] [facility] [address], [place], [address], [facility] 6 15:45:51 Low back pain [id number] Completed 201102/08/2014 RECORDED 05/13/20 12 3:41PM BY ALLA BAUM MA, ANNOTATI ON/ADDEN DUM BRODY Roberts [address] [facility] [address], [place], [address], [facility] 2 10:36:13 Shoulder joint pain [id number] Completed 201102/08/2014 STORY: R SIDED, X PAST TWO WEEKS WITHOUT HX OF TRAUMA OR INJURY RECENT OR PAST. WITH ASSOCIAT ED WEAKNESS , MINIMAL RESP TO NSAID. WILL CONTACT [facility] TO SEE IF THEY ARE ABLE TO SEE HER SOON, IF NOT WILL CHECK XRAYS WHILE AWAITING APPT.; RECORDED 05/13/20 12 3:41PM BY ALLA BAUM MA, MARY CARMEN ON/LUIS LICONA-C [address], [place], [address], [facility] 6 15:45:51 Disorder of upper respirat ory system Completed 201102/08/2014 RECORDED 05/13/20 12 3:41PM BY ALLA BAUM MA, MARY CARMEN ON/LUIS LICONA-C [address] [facility] [address], [place], [address], [facility] 6 15:45:51 Acute upper respirat ory infectio n [id number] Completed 201102/08/2014 IMPRESSI ON: 5 DAYS, NO FEVERS AND NO FOCAL SIGNS ON EXAM. LIKELY VIRAL, ADVISED RE REST, FLUIDS AND OTHER SX SUPPORT. CALL FOR WORSENIN G/PRN.; RECORDED 05/13/20 12 3:41PM BY ALLA BAUM MA, ANNOTATI ON/LUIS LICONA-C [address] [facility] [address], [place], [address], [facility] 6 15:45:51 Vernal conjunct ivitis [id number] Completed 201102/08/2014 RECORDED 05/13/20 12 3:41PM BY ALLA BAUM MA, ANNOTATI ON/LUIS RHODESC [address] [facility] [address], [place], [address], [facility] 6 15:45:51 Acute pharyngi tis [id number] Completed 201102/09/2014 RECORDED 05/13/20 12 3:41PM BY ALLA BAUM MA, MARY CARMEN ON/ADDMOHAN Healy MD [address] [facility] [address], [place], [address], [facility] 7 10:24:09 Screenin g for malignan t neoplasm of cervix Completed 201102/09/2014 RECORDED 05/13/20 12 3:41PM BY ALLA BAUM MA, MARY CARMEN ON/ADDEN DUM Susan LICONA-C [address] [facility] [address], [place], [address], [facility] 6 15:45:51 Epigastr ic pain [id number] Completed 201102/09/2014 IMPRESSI ON: PROBABLE GASTRITI S D/T RECENT NSAIDS AND PREDNISO NE TAPER, NO LONGER TAKING EITHER; RECORDED 05/13/20 12 3:41PM BY ALLA BAUM MA, MARY CARMEN ON/ADDEN DUM Susan ILCONA-C [address] [facility] [address], [place], [address], [facility] 6 15:45:51 Malaise and fatigue [id number] Completed 201102/09/2014 IMPRESSI ON: PER PT REPORT WITH SIG INCREASE D STRESS LEVELS RECENTLY . SEES THERAPIS T WEEKLY, REC INCREASI NG ZOLOFT DOSE. CHANGED FROM 25- 50 MG.; RECORDED 05/13/20 12 3:41PM BY ALLA BAUM MA, MARY CARMEN ON/ADDEN DUM Susan LICONA-C [address] [facility] [address], [place], [address], [facility] 6 15:45:51 Low back pain [id number] Completed 201102/09/2014 RECORDED 05/13/20 12 3:41PM BY ALLA BAUM MA, ANNOTATI ON/ADDEN BRODY Ferro [address] [facility] [address], [place], [address], [facility] 2 10:36:13 Shoulder joint pain [id number] Completed 201102/09/2014 STORY: R SIDED, X PAST [...] [address], [place], [address], [facility] 6 15:45:51 Disorder of upper respirat ory system Completed 201102/09/2014 RECORDED 05/13/20 12 3:41PM BY ALLA BAUM MA, MARY CARMEN ON/ADDEN DUM Susan De Oliveira PA-C [address] [facility] [address], [place], [address], [facility] 6 15:45:51 Acute upper respirat ory infectio n [id number] Completed 201102/09/2014 IMPRESSI ON: 5 DAYS, NO FEVERS AND NO FOCAL SIGNS ON EXAM. LIKELY VIRAL, ADVISED RE REST, FLUIDS AND OTHER SX SUPPORT. CALL FOR WORSENIN G/PRN.; RECORDED 05/13/20 12 3:41PM BY ALLA BAUM MA, MARY CARMEN ON/LUIS DUM Susan LICONA-C [address] [facility] [address], [place], [address], [facility] 6 15:45:51 Vernal conjunct ivitis [id number] Completed 201102/09/2014 RECORDED 05/13/20 12 3:41PM BY ALLA BAUM MA, MARY CARMEN ON/ADDEN DUM Susan De Oliveira PA-C [address], [place], [address], [facility] 6 15:45:51 Bronchit is [id number] Completed 201201/16/2014 RECORDED 07/28/19 13 1:45AM BY ALLA BAUM MA, MARY CARMEN ON/ADDEN DUM Susan De Oliveira PA-C [address], [place], [address], [facility] 6 15:45:51 Bronchit is [id number] Completed 201202/08/2014 RECORDED 07/28/19 13 1:45AM BY ALLA BAUM MA, ANNOTATI ON/ADDEN DUM Susan De Oliveira PA-C [address] [facility] [address], [place], [address], [facility] 6 15:45:51 Bronchit is [id number] Completed 201202/09/2014 RECORDED 07/28/19 13 1:45AM BY ALLA BAUM MA, ANNOTATI ON/ADDEN DUM Susan De Oliveira PA-C [address] [facility] [address], [place], [address], [facility] 6 15:45:51 Follow-u p encounte r Completed 201201/16/2014 RECORDED 08/31/19 13 1:39PM BY RHONDA PETERSEN MA, ANNOTATI ON/ADDEN DUM Susan De Oliveira PA-C [address], [place], [address], [facility] 6 15:45:51 Disorder of rotator cuff Completed 201201/16/2014 IMPRESSI ON: SUSPECT SUPRASPI NATUS TENDON TEAR. 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 FURTHER F/U THROUGH [employer]. SHE WILL TAKE NSAID PRN AND ICE. MAY RETURN TO WORK.; RECORDED 08/31/19 13 1:39PM BY RHONDA PETERSEN MA, MARY CARMEN ON/ADDEN DUM Susan De Oliveira PA-C [address] [facility] [address], [place], [address], [facility] 6 15:45:51 Follow-u p encounte r Completed 201202/08/2014 RECORDED 08/31/19 13 1:39PM BY RHONDA PETERSEN MA, ANNOTATI ON/ADDEN DUM Susan De Oliveira PA-C [address], [place], [address], [facility] 6 15:45:51 Disorder of rotator cuff Completed 201202/08/2014 IMPRESSI ON: SUSPECT SUPRASPI NATUS TENDON TEAR. 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 FURTHER F/U THROUGH [employer]/[facility]. SHE WILL TAKE NSAID PRN AND ICE. MAY RETURN TO WORK.; RECORDED 08/31/19 13 1:39PM BY RHONDA PETERSEN MA, MARY CARMEN ON/ADDEN DUM Susan De Oliveira PA-C [address], [place], [address], [facility] 6 15:45:51 Follow-u p encounte r Completed 201202/09/2014 RECORDED 08/31/19 13 1:39PM BY RHONDA PETERSEN MA, ANNOTATI ON/ADDMOHAN DUM Susan LICONA-C [address], [place], [address], [facility] 6 15:45:51 Disorder of rotator cuff Completed 201202/09/2014 IMPRESSI ON: SUSPECT SUPRASPI NATUS TENDON TEAR. SHE SEES [employer]OY[employer] ON TU. FURTHER F/U THROUGH [employer] [facility]/[facility]. SHE WILL TAKE NSAID PRN AND ICE. MAY RETURN TO WORK.; RECORDED 08/31/19 13 1:39PM BY RHONDA PETERSEN MA, MARY CARMEN ON/ADDEN DUM Susan LICONA-C [address], [place], [address], [facility] 6 15:45:51 Adult health examinat ion Completed 201303/18/2016 Diana martines [place] [facility], [facility] 6 09:23:31 Anxiety state [id number] Completed 201312/30/2016 Peyman Healy MD [address], [place], [address], [facility] 7 10:23:44 Backache [id number] Completed 201301/16/2014 IMPRESSI ON: > 1 WEEK OF WORSENIN G BACK PAIN, UNABLE TO STAND UPRIGHT, LEGS GIVING OUT. PAIN NOW RADIATIN G INTO BUTTOCKS AND ANTERIOR THIGHS. MRI REVEALED SCHMORL' S NODES, OTHERWIS E NEG. TO PSS FOR FURTHER EVAL.; RECORDED 10/05/19 14 2:28PM BY DIANA NUNEZ MA, MARY CARMEN ON/LUIS LICONA-C [address] [facility] [address], [place], [address], [facility] 6 15:45:51 Acute bronchit is [id number] Completed 201301/16/2014 IMPRESSI ON: LIKELY MOSTLY VIRAL SXS, HOWEVER DUE TO SMOKING STATUS AND RISK OF BACTERIA L BRONCHIT IS OR PNA TO TX WITH ABX. REST, FLUIDS, COUGH MED AT NIGHT PRN. CALL FOR WORSENIN G/PRN.; RECORDED 10/05/19 14 2:26PM BY DIANA NUNEZ MA, MARY CARMEN ON/LUIS LICONA-Hilary [address] [facility] [address], [place], [address], [facility] 6 15:45:51 Cough [id number] Completed 201301/16/2014 IMPRESSI ON: POSSIBLE PNEUMONI A WITH THE FOCAL RALES. IF SHE DOES NOT IMPROVE WITH THE ABX SHE WILL GET A CXR.; RECORDED 10/05/19 14 2:26PM BY DIANA NUNEZ MA, MARY CARMEN ON/ADDMOHAN RHODESC [address] [facility] [address], [place], [address], [facility] 5 09:10:19 Tobacco dependen ce syndrome [id number] Active 2013 Diana martines [place] null, [facility] 6 09:24:07 Tobacco dependen ce syndrome 60144306 Completed 201301/16/2014 RECORDED 10/05/19 14 2:27PM BY DIANA NUNEZ MA, ANNOTATI ON/ADDEN DUM GABRIELA Coburn, [facility] 6 09:24:07 Diarrhea [id number] Completed 201301/16/2014 RECORDED 10/05/19 14 2:25PM BY DIANA NUNEZ MA, ANNOTATI ON/ADDEN DUM Susan De Oliveira PA-C [address], [place], [address], [facility] 6 15:45:51 Dysuria [id number] Completed 201312/30/2016 RECORDED 10/05/19 14 2:30PM BY DIANA NUNEZ MA, OFFICE VISIT Peyman Healy MD [address], [place], [address], [facility] 7 10:24:17 Elevated blood-pr essure reading without diagnosi s of hyperten margaret [id number] Completed 201305/03/2025 Allan De Oliveira PA-C [address], [place], [address], [facility] 5 09:19:58 Gastroes ophageal reflux disease 706345537 Active 2013 GABRIELA Coburn, [facility] 6 09:23:24 Headache 32237974 Completed 201301/16/2014 RECORDED 10/05/19 14 2:28PM BY DIANA NUNEZ MA, ANNOTATI ON/ADDEN DUM Susanyimi De Oliveira PA-C [address], [place], [address], [facility] 6 15:45:51 Hyperlip idemia 37618785 Completed 201312/30/[address] [facility] [address], [place], [address], [facility] 2 14:05:28 Acute lymphade nitis 97265417 Completed 201301/16/2014 IMPRESSI ON: PT VERY ANXIOUS [...] 2:26PM BY DIANA NUNEZ MA, ANNOTATI ON/ADDEN GEORGE De Oliveira PA-C [address] [facility] [address], [place], [address], [facility] 6 15:45:51 Psoriasi s [id number] Active 2013 Diana martines [place] [facility], [facility] 6 09:24:04 Disorder of bursa of shoulder region 79452988 Completed 201305/03/2025 Allan De Oliveira PA-C [address] [facility] [address], [place], [address], [facility] 5 09:11:46 Temporom andibula r joint disorder 04812031 Completed 201305/03/2025 Allan De Oliveira PA-C [address] [facility] [address], [place], [address], [facility] 5 09:11:59 Candidal vulvovag initis 21721245 Completed 201301/16/2014 IMPRESSI ON: TENDS TO GET YEAST INFECTIO NS WITH ABX; RECORDED 10/05/19 14 2:26PM BY DIANA NUNEZ MA, MARY CARMEN ON/LUIS Ruffinden ND-C [address], [place], [address], [facility] 6 15:45:51 Backache [id number] Completed 201302/08/2014 IMPRESSI ON: > 1 WEEK OF WORSENIN G BACK PAIN, UNABLE TO STAND UPRIGHT, LEGS GIVING OUT. PAIN NOW RADIATIN G INTO BUTTOCKS AND ANTERIOR THIGHS. MRI REVEALED SCHMORL' S NODES, OTHERWIS E NEG. TO PSS FOR FURTHER EVAL.; RECORDED 10/05/19 14 2:28PM BY DIANA NUNEZ MA, MARY CARMEN ON/[facility] Susan De Oliveira ND-C [address] [facility] [address], [place], [address], [facility] 6 15:45:51 Acute bronchit is [id number] Completed 201302/08/2014 IMPRESSI ON: LIKELY MOSTLY VIRAL SXS, HOWEVER DUE TO SMOKING STATUS AND RISK OF BACTERIA L BRONCHIT IS OR PNA TO TX WITH ABX. REST, FLUIDS, COUGH MED AT NIGHT PRN. CALL FOR WORSENIN G/PRN.; RECORDED 10/05/19 14 2:26PM BY DIANA NUNEZ MA, ANNOTATI ON/[facility] Susan De Oliveira ND-C [address] [facility] [address], [place], [address], [facility] 6 15:45:51 Cough [id number] Completed 201302/08/2014 IMPRESSI ON: PRODUCTI VE COUGH X 10D, + TOBACCO, WILL TX, ADVISE TO STOP SMOKING, RTC IF PERSISTE NT OR WORSENIN G SYMPTOMS .; RECORDED 10/05/19 14 2:26PM BY DIANA NUNEZ MA, ANNOTATI ON/[facility] Allan De Oliveira ND-C [address] [facility] [address], [place], [address], [facility] 5 09:10:19 Diarrhea [id number] Completed 201302/08/2014 RECORDED 10/05/19 14 2:25PM BY DIANA NUNEZ MA, MARY CARMEN ON/ADDEN DUM Susan RHODESC [address], [place], [address], [facility] 6 15:45:51 Headache [id number] Completed 201302/08/2014 RECORDED 10/05/19 14 2:28PM BY DIANA NUNEZ MA, MARY CARMEN ON/ADDEN DUM Susan RHODESC [address] [facility] [address], [place], [address], [facility] 6 15:45:51 Acute lymphade nitis 55888832 Completed 201302/08/2014 IMPRESSI ON: PT VERY ANXIOUS [...] [address], [place], [address], [facility] 6 15:45:51 Candidal vulvovag initis 11627049 Completed 201302/08/2014 IMPRESSI ON: TENDS TO GET YEAST INFECTIO NS WITH ABX; RECORDED 10/05/19 14 2:26PM BY DIANA NUNEZ MA, MARY CARMEN ON/ADDEN DUM Susan De Oliveira PA-C [address], [place], [address], [facility] 6 15:45:51 Backache [id number] Completed 201302/09/2014 IMPRESSI ON: > 1 WEEK OF WORSENIN G BACK PAIN, UNABLE TO STAND UPRIGHT, LEGS GIVING OUT. PAIN NOW RADIATIN G INTO BUTTOCKS AND ANTERIOR THIGHS. MRI REVEALED SCHMORL' S NODES, OTHERWIS E NEG. TO PSS FOR FURTHER EVAL.; RECORDED 10/05/19 14 2:28PM BY DIANA NUNEZ MA, MARY CARMEN ON/LUIS LICONA-C [address], [place], [address], [facility] 6 15:45:51 Acute bronchit is [id number] Completed 201302/09/2014 IMPRESSI ON: LIKELY MOSTLY VIRAL SXS, HOWEVER DUE TO SMOKING STATUS AND RISK OF BACTERIA L BRONCHIT IS OR PNA TO TX WITH ABX. REST, FLUIDS, COUGH MED AT NIGHT PRN. CALL FOR WORSENIN G/PRN.; RECORDED 10/05/19 14 2:26PM BY DIANA NUNEZ MA, MARY CARMEN ON/LUIS LICONA-C [address], [place], [address], [facility] 6 15:45:51 Cough [id number] Completed 201302/09/2014 IMPRESSI ON: PRODUCTI VE COUGH X 10D, + TOBACCO, WILL TX, ADVISE TO STOP SMOKING, RTC IF PERSISTE NT OR WORSENIN G SYMPTOMS .; RECORDED 10/05/19 14 2:26PM BY DIANA NUNEZ MA, ANNOTATI ON/LUIS RHODESC [address], [place], [address], [facility] 5 09:10:19 Diarrhea 88743102 Completed 201302/09/2014 RECORDED 10/05/19 14 2:25PM BY DIANA NUNEZ MA, MARY CARMEN ON/LUIS LICONA-C [address], [place], [address], [facility] 6 15:45:51 Headache [id number] Completed 201302/09/2014 RECORDED 10/05/19 14 2:28PM BY DIANA NUNEZ MA, ISAIAHATI ON/ADDEN GEORGE De Oliveira PA-C [address], [place], [address], [facility] 6 15:45:51 Acute lymphade nitis 81287834 Completed 201302/09/2014 IMPRESSI ON: PT VERY ANXIOUS [...] ANNOTATI ON/ADDMOHAN De Oliveira PA-C [address], [place], [address], [facility] 6 15:45:51 Candidal vulvovag initis 70751396 Completed 201302/09/2014 IMPRESSI ON: TENDS TO GET YEAST INFECTIO NS WITH ABX; RECORDED 10/05/19 14 2:26PM BY DIANA NUNEZ MA, ISAIAHATI ON/ADDMOHAN De Oliveira PA-C [address], [place], [address], [facility] 6 15:45:51 Glucose level outside referenc e range 899304646 Completed 201312/30/2016 Peyman Healy MD [address], [place], [address], [facility] 7 10:23:38 Anemia of pregnanc y 26407256 Completed 201512/30/2016 Peyman Healy MD [address] [facility] [address], [place], [address], [facility] 7 10:23:35 Generali zed anxiety disorder 58178364 Active 2016 Diana martines [place] null, [facility] 7 11:53:56 Primary biliary cholangi tis 57032505 Active 2019 Noah Sanchez [facility] [address] 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 no other organs. nephrect sandoval 09/2019 Removal Reason: radical nephrect sandoval 09/2019 Lynda ortega [facility] 3 15:23:27 Neoplasm of left kidney 70974563240 064500 Completed 202004/27/2023 Removal Reason: radical nephrect sandoval 09/2019 Lynda ortega [facility] 3 15:23:00 Low back pain 883182273 Active 2021 RECORDED 05/13/20 12 3:41PM BY ALLA BAUM MA, ANNOTATI ON/ADDEN DUM [facility] [address] 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 [address], [place], [address], [facility] 5 09:10:48 Impaired fasting glycemia 385949342 Active 2021 Noah Sanchez, [facility] [address] [facility] [address], [place], [address], [facility] 2 14:05:59 Pain of left hip joint 13696860125 9100 Completed 202105/03/2025 Allan De Oliveira PA-C [address] [facility] [address], [place], [address], [facility] 5 09:11:50 [facility] 486264945 [facility] 20[facility] 15:21:38 Cough 51079756 Completed 202305/03/2025 IMPRESSI ON: PRODUCTI VE COUGH X 10D, + TOBACCO, WILL TX, ADVISE TO STOP SMOKING, RTC IF PERSISTE NT OR WORSENIN G SYMPTOMS .; RECORDED 10/05/19 14 2:26PM BY DIANA NUNEZ MA, ANNOTATI ON/ADDEN DUM Allan De Oliveira PA-C [address] [facility] [address], [place], [address], [facility] 5 09:10:19 COVID-19 521207478 Completed 202305/03/2025 Allan De Oliveira PA-C [address], [place], [address], [facility] 5 09:11:55 Fever 926405411 Completed 202305/03/2025 Allan De Oliveira PA-C [address], [place], [address], [facility] 5 09:10:27 Vitamin D deficien cy 65113753 Active 2023 BRODY Roberts [address] [facility] [address], [place], [address], [facility] 4 15:27:42 Acute right otitis media 360424334 Completed 202405/03/2025 Allan De Oliveira PA-C [address], [place], [address], [facility] 5 09:12:07 History of primary malignan t neoplasm of kidney 062325431 Active 2024 Allan De Oliveira PA-C [address], [place], [address], [facility] 5 09:19:00 Bilatera l carpal tunnel syndrome [id number] 621372 Active 2024 Allan De Oliveira PA-C [address], [place], [address], [facility] 5 09:54:43 Problem Notes None recorded. Procedures Surgical History Date Name Laterality Status Provider Name and Address Organization Details Recorded Time 09/07/19 25 Most Recent Mammogram completed Emili Martinez [facility] 09/12/2024 12:55:45 07/14/19 23 Mammogram Screening completed Danielle Rodriguez [facility] 07/14/2022 16:24:36 05/05/20 22 fasciotomy of foot completed BRODY Roberts [address], [place], [address], [facility] 04/27/2023 09:18:39 09/07/19 20 radical nephrectomy completed Greta Glasgow [facility] 09/11/2019 15:28:04 09/07/19 20 Cancer Surgery completed Sherlyn Brown MA [facility] 03/27/2021 08:40:34 07/14/19 17 Date of Last Colonoscopy completed Diana slaughter MA [facility] 12/30/2016 10:13:20 07/14/19 17 Colonoscopy completed BRODY Roberts [address] [facility] [address], [place], [address], [facility] 02/14/2019 15:53:00 02/11/20 07 delivery completed Diana slaughter MA [facility] 02/14/2019 15:32:01 01/14/20 04 Caesarean Section completed Diana slaughter MA [facility] 02/14/2019 15:31:51 09/03/19 00 Tonsillectomy completed Sherlyn Brown MA [facility] 03/27/2021 08:40:34 Tubal Ligation completed Diana slaughter MA [facility] 11/21/2014 14:01:10 Tonsillectomy completed Sherlyn Brown MA [facility] 03/27/2021 08:40:34 Imaging Results None recorded. Procedure Notes None recorded. Medical Equipment None Reported. Allergies Allergen ID Allergen Name Allergen Category Reaction Reaction Severity Criticality Documentation Date Start Date Code Code System Note Provider Name and Address Organization Details Recorded Time amoxicill in medicatio n other Not available Not available 10/18/2014 723 RxNorm cause s yeast infec tion in the past GABRIELA Coburn [facility] 5 12:49:17 2838 Keflex medicatio n itching Not available Not available 01/16/20142013 70757 7 RxNorm Diana martines [place] null, [facility] 5 12:49:17 2839 Product containin g penicilli n (product) medicatio n Not available Not available Not available 01/16/20142013 52004 8001 SNOMED REACT ION: AMOX, CAUSE S YEAST INFEC TIONS ; COMME NT: RECOR DED 10/04 2:30P M BY SRINIVAS HUERTA MA, OFFIC E VISIT ; Peyman Healy MD [address], [place], [address], [facility] 5 16:56:28 [address]502 Non-stero idal anti-infl ammatory agent (substanc e) medicatio n other moderate low 04/21/2022 96117 5008 SNOMED 1 BRODY Schrader [address] [facility] [address], [place] [place] [address], [facility] 2 13:55:13 [id number] cephalexi n medicatio n Not available Not [...] BY ORAL ROUTE NEEDED FOR 10 DAYS. 10/18 /2022 completed Not Available Not Available Not Available [...] Updated DateTime 07/06/2024 110/60 mm[Hg] BRODY Roberts [address], [address], [facility] 07/06/2024 11:27:04 Date Recorded Body height Body mass index (BMI) Body weight Heart rate Oxygen saturation Body temperature Systolic And Diastolic Provider Name and Address Organization Details Last Updated DateTime 5 158.75 cm 33.7 kg/m2 17241.7 7 g 62 /min 98 % 99.1 [degF] 158/92 mm[Hg] Maru Sewell MA [facility] 5 10:49:03 Date Recorded Body height Body mass index (BMI) Body weight Body temperature Oxygen saturation Heart rate Systolic And Diastolic Provider Name and Address Organization Details Last Updated DateTime 4 158.75 cm 34.6 kg/m2 62284.7 4 g 98.4 [degF] 98 % 85 /min 127/85 mm[Hg] Sydnie Flores MA [facility] 4 11:28:21 Date Recorded Body height Body mass index (BMI) Body weight Heart rate Oxygen saturation Body temperature Systolic And Diastolic Provider Name and Address Organization Details Last Updated DateTime 5 158.75 cm 35.3 kg/m2 91645.1 g 75 /min 99 % 98.7 [degF] 157/85 mm[Hg] Maru Sewell MA [facility] 5 09:35:02 Date Recorded Systolic And Diastolic Provider Name and Address Organization Details Last Updated DateTime 05/02/2024 120/66 mm[Hg] Noah Sanchez, [facility] [address] [address], [place], [address], [facility] 05/02/2024 16:01:22 Date Recorded Body height Body mass index (BMI) Body weight Heart rate Oxygen saturation Body temperature Systolic And Diastolic Provider Name and Address Organization Details Last Updated DateTime 4 158.75 cm 34 kg/m2 84716.9 6 g 72 /min 99 % 98.2 [degF] 147/79 mm[Hg] Maru Sewell MA [facility] 4 15:21:08 Date Recorded Body height Body mass index (BMI) Body weight Heart rate Oxygen saturation Body temperature Systolic And Diastolic Provider Name and Address Organization Details Last Updated DateTime 5 158.75 cm 35.3 kg/m2 40643.2 g 81 /min 99 % 98.2 [degF] 133/79 mm[Hg] Estefania Callahan MA [facility] 5 08:43:23 Social History Question Answer Notes LastModified by Organizat ion Details LastModified Time Tobacco Smoking Status Former Smoker pt quit 09/2019 GABRIELA Waller, [facility] 03/26/2020 10:39:09 Do You Have An Advance [...] 04/24/2015 When Did You Quit Smoking? 1-5yearssin saadiacicora leigh [email or web address] Information not available 03/27/2021 Live Alone Or With Others? With Others 2 Children, 2 Dogs 2 [email or web address] Information not available 05/03/2025 Do You Take [...] Or Greater Than 100 Degrees Fahrenheit? No [email or web address] Information not available 03/26/2020 Are You Or Anyone In Your Household A Health Care Provider Or Emergency Responder? Yes [email or web address] Information not available 03/26/2020 To The Best Of Your Knowledge Have You Been In Close Proximity To Any Individual Who Tested Positive For COVID-19? No [email or web address] Information not available 03/26/2020 Have You Recently Traveled To A COVID-19 High Risk Area Or Gathering In The Last 10 Days? No [email or web address] Information not available 07/23/2020 What Was The Date Of Your Most Recent Tobacco Screening? 05/03/2025 Information not available 05/03/2025 How Many Children Do You Have? 2 Gabriel And Jas Information not available 12/30/2016 What Is Your Current Pack Years? [email or web address] Information not available 05/03/2025 Do You Use Your Seat Belt Or Car Seat Routinely? Yes [email or web address] Information not available 03/27/2021 Seat Belts Used Routinely Yes Information not available 04/23/2022 Are You Sexually Active? No Information not available 12/30/2016 Smoke Alarm In Home Yes Information not available 04/23/2022 Do You Have Smoke And Carbon Monoxide Detectors In Your Home? 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 [facility] Information not available 05/03/2025 Do you or [...] available 10:40:59 Father Malignant neoplasm of lung [email or web address] Not available 03/27 08:40:16 Father Kidney disease [email or web address] Not available 03/27 08:40:16 Mother Malignant neoplasm of uterus molar pregna ncy- hyster ectomy Not available 04/23/2022 10:40:59 Mother Opioid dependence Not available 04/23 10:40:59 Mother Substance abuse [email or web address] Not available 03/27 08:40:16 Mother Seizure disorder [email or web address] Not available 03/27 08:40:16 Mother Osteoporosis Not vasile ilable 03/27/2021 08:40:16 Mother Disorder of thyroid gland Not available 2021 10:40:59 Brother Essential hypertension 45 possib ly Not available 04/23/2022 10:40:59 Brother Harmful pattern of use of alcohol [email or web address] Not available 2017 15:39:14 Brother Depressive disorder Not available 03/27 08:40:16 Maternal Grandfather Opioid dependence Not available 04/23 10:40:59 Unspecified Relation Substance abuse [email or web address] Not available 03/27 08:40:16 Son Allergy Not available 1 10:40:59 Medical History Condition Response Coronary Artery Disease N Other N Gout N Kidney Stones N Blood Diseases N Hyperthyroidism N Breast Cancer N mrsa exposure N Hypothyroidism N Lung Disease N COPD N Depression N Developmental or Behavioral Disorders N Defects [...] virus, trivalent, preservative [address] [facility] [place] 12/30/2016 10:11:22 Influenza, split virus, quadrivalent, preservative [address] [facility] 09/02/2018 10:03:42 Influenza, split virus, quadrivalent, preservative 9 completed GABRIELA Valadez, [facility] 06/14/2019 09:27:56 COVID-19, mRNA, LNP-S, PF, 100 mcg/0.5mL dose or 50 mcg/0.25mL dose 0 completed GABRIELA Herbert, [facility] 09/12/2021 10:18:38 Influenza, split virus, quadrivalent, PF 1 [facility] 10:18:38 COVID-19, mRNA, LNP-S, PF, 100 mcg/0.5mL dose or 50 mcg/0.25mL dose 1 [facility] 09/12/2021 10:18:38 Influenza, split virus, quadrivalent, PF 7 completed GABRIELA Herbert, [facility] 09/12/2021 10:18:39 Influenza, split virus, trivalent, preservative 5 completed GABRIELA Valadez, [facility] 12/24/2021 10:23:35 Influenza, split virus, quadrivalent, PF 3 [facility] 07/13[facility]2023 11:16:35 Influenza, split virus, trivalent, PF 4 completed Not Available [facility] 05/03/2025 08:38:15 Influenza, split virus, trivalent, PF 5 completed Not Available [facility] 05/03/2025 08:38:15 Tdap 1 completed Not Available [facility] 01/16/2014 13:38:10 Influenza, split virus, quadrivalent, PF 0 completed GABRIELA Waller, [facility] 03/26/2020 10:48:58 Tdap 1 completed Unique Melo MA null, [facility] [place] 03/27/2021 10:06:49 Influenza, split virus, quadrivalent, PF 2 completed Noah Sanchez [facility] [address], [address], [facility] [place] 04/23/2022 11:29:33 Past Encounters Encounter ID Performer Location Encounter Start Date Encounter Closed Date Diagnosis/Indication Diagnosis SNOMED-CT Code Diagnosis ICD10 Code Diagnosis IMO Codes Diagnosis Note [id number] 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 [id number] [facility] [place] [address] 05/07/2009 00:00:00 [id number] 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 [id number] [facility] [place] [address] 04/03/2010 00:00:00 [id number] 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 [address] [facility] [place] [address] 04/30/2010 00:00:00 [id number] 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 [address] [facility] [place] [address] 08/22/2010 00:00:00 [id number] 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 [address] [facility] [place] [address] 09/19/2010 00:00:00 [id number] 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 [address] [facility] [place] [address] 11/17/2010 00:00:00 [id number] 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 [address] [facility] [place] [address] 06/02/2011 00:00:00 [id number] 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 [address] [facility] [place] [address] 09/15/2011 00:00:00 [id number] 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 [address] [facility] [place] [address] 10/29/2011 00:00:00 [id number] 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 [address] [facility] [place] [address] 11/11/2011 00:00:00 [id number] 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 [address] [facility] [place] [address] 05/13/2012 00:00:00 [id number] 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 [address] [facility] [place] [address] 08/31/2012 00:00:00 [id number] 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 [address] [facility] [place] [address] 02/07/2013 00:00:00 [id number] 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 [address] [facility] [place] [address] 04/12/2013 00:00:00 [id number] 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 [address] [facility] [place] [address] 08/30/2013 00:00:00 [id number] 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 [address] [facility] [place] [address] 10/04/2013 00:00:00 [id number] Peyman Healy MD Main Office [address] [address] [place] [address] 03/27/2014 09:46:56 03/27/2014 10:49:27 Wheezing symptom 380548097 Tobacco de pendence syndrome 33227099 [id number] Peyman Healy MD Main Office [address] [address] [place] [address] 09/14/2014 14:46:39 09/14/2014 15:17:09 Acute sinusitis 48927238 Tobacco de pendence syndrome 45245965 [id number] Peyman Healy MD Main Office [address] [address] [place] [address] 10/18/2014 12:40:42 10/18/2014 13:27:05 Acute asthma 088135944 Acute zhao rgic reaction 498717874 Tobacco de pendence syndrome 66334987 [id number] Peyman Healy MD Main Office [address] [address] [place] [address] 11/21/2014 13:28:44 11/21/2014 14:47:30 Adult health examination 765584920 Hyperlipidemia 85955113 Fatigue 60710737 Tobacco de pendence syndrome 74761020 Irritable bowel syndrome 41235779 Screening for malignant neoplasm of breast 201340068 Screening for malignant neoplasm of cervix 778342683 Body mass index 25-29 - overweight 687055070 [id number] Livan Fatima MD Main Office [address] [address] 12/29/2014 09:25:24 12/29/2014 09:50:58 Acute pharyngitis 276835135 probable viral infection; no role for abx. Continue with symptomati c treatment. [id number] Peyman Healy MD Main Office [address] [address] [place] [address] 04/24/2015 13:09:18 04/24/2015 15:20:58 Acute sinusitis 09739499 J01.90 Anxiety state 649508214 F41.1 [id number] Peyman Healy MD Main Office [address] [place] [address] 06/05/2015 14:02:13 06/05/2015 15:35:44 Anxiety state 366609805 F41.1 Pain in calf 288015763 M 79.669 [id number] Susan De Oliveira PA-C Main Office [address] [place] [address] 07/23/2015 10:47:52 07/23/2015 12:10:04 Lumbar sprain 907255022 S33.9XXA L. lumbar sparin acute. Can not tolerate NSAIDs. Will start Prednisone taper , Flexeril at night only and Tramadil for pain. Moist heat applicatio ns, gently back stretches. Stay back from work for few days. Sprain pel elana ligament 590174951 S33.9XXA [id number] Peyman Healy MD Main Office [address] [address] [place] [address] 12/25/2015 13:17:42 12/25/2015 14:58:37 Anxiety state 056076477 F41.1 Tobacco de pendence syndrome 70841204 F17.290 Reviewed motivation s for smoking cessation. Advised about benefits of stopping smoking. Hyperlipidemia 05360103 E78.5 Adult heal th examination 540427483 Z00.00 Fatigue 16935544 R53.83 Body mass index 25-29 - overweight 377793252 Z68.29 Inflammati on of sacroiliac joint 72497721 M46.1 [id number] Peyman Healy MD Main Office [address] [place] [address] 03/18/2016 09:15:07 03/18/2016 10:32:41 Irritable bowel syndrome 30059871 K58.9 Diarrhea 38318047 R19.7 Knee pain 79119691 M25.5 61 Medial joint line tenderness with positive Malathi test. Rule out meniscus injury [id number] Susan De Oliveira PA-C Main Office [address] [place] [address] 08/07/2016 10:37:00 08/07/2016 11:16:42 Upper respiratory infection 26819540 J06.9 PT. will use Mucinex DM or D BID for congestion and cough , nasal saline solution BID and FLonase she has at home qd. Rest and fluids. PT. will call office next week if worsening of symptoms , fever, colored secretions or facial pain. [id number] Peyman Healy MD Main Office [address] [place] [address] 12/30/2016 10:04:42 12/30/2016 11:06:58 Adult health examination 230333438 Z00.00 Tobacco de pendence syndrome 22823297 F17.290 Reviewed motivation s for smoking cessation. Advised about benefits of stopping smoking. Elevated blood-pressure reading without diagnosis of hypertension 880835327 R03.0 Had elevated BP under propafol for colonoscop y Anxiety state 453321115 F41.1 STable on medication Hyperlipidemia 54389403 E78.5 Fatigue 84975319 R53.83 Hyperhidrosis 557644222 R61 Nasal vestibulitis 70925 000 J34.89 Body mass index 25-29 - overweight 053917556 E66.3 Z68.25 [id number] Allan De Oliveira PA-C Main Office [address] [place] [address] 09/15/2017 13:21:04 09/15/2017 14:12:54 Acute sinusitis 38713565 J01.90 pt requested diflucan - rec add probiotic supp qd soniya for her IBS c/o - hopefully not require levsin as much. also advised pt could use bactroban in nares to help nasal lining sxs as well for a few days [id number] Peyman Healy MD Main Office [address] [facility] [address] [place] [address] 02/11/2018 15:00:11 02/11/2018 16:22:57 Adult health examination 800342697 Z00.00 Tobacco de pendence syndrome 52433466 F17.290 Reviewed motivation s for smoking cessation. Advised about benefits of stopping smoking. Generalize d anxiety disorder 40575724 F41.1 Irritable bowel syndrome 10699490 K58.9 Body mass index 25-29 - overweight 163087744 E66.3 Z68.25 Hyperlipidemia 72355249 E78.5 Fatigue 98035652 R53.83 Greater tr ochanteric pain syndrome 0302200 M70.62 Neck pain 51491947 M54.2 Inflammati on of sacroiliac joint 23681482 M46.1 [id number] Allan De Oliveira PA-C Main Office [address] [address] [place] [address] 04/19/2018 10:32:33 04/19/2018 12:00:32 Needs influenza immunization 607058132 Z23 had flu shot last week -- flu shot NOT given today Cough 62200644 R05 suspect early pna - will check cxr and give abx proactivel y Infective pneumonia 3123 91050 J18.9 rec probiotics while on abx, also rec proair and peace -- see below [id number] Sim Garcia MD Main Office [address] [facility] [address] [place] [address] 09/02/2018 09:42:20 09/02/2018 10:35:38 Acute pharyngitis 047854280 J02.9 Based on risk score and recent exposure will cover for strep. D/C if culture is negative. Supportive /symptomat ic tx advised in meantime. Call inb/worse or if new symptoms develop. [id number] Livan Fatima MD Main Office [address] [address] [place] [address] 02/14/2019 15:20:06 02/14/2019 16:13:10 Adult health examination 645501522 Z00.00 HM UTD, will check blood work. Tobacco de pendence syndrome 10887513 F17.290 Reviewed present motivation s for smoking cessation. Patient reports that being ready to attempt smoking cessation. Discussed options for support. Hyperlipidemia 03706424 E78.5 Family his tory of Thyroid disorder 426472868 Z83.49 [id number] Sim Garcia MD Main Office [address] [address] [place] [address] 06/14/2019 09:04:31 06/14/2019 10:28:17 Pain in left foot 3330489366 33010 M79.672 pt c/o pain at top of [...] above pain encouraged pt to f/u c retail zone specialist as well - cont orthotics as per retail zone specialist [id number] Sim Garcia MD Main Office [address] [address] [place] [address] 08/28/2019 15:25:19 08/28/2019 16:54:55 Acute pharyngitis 973659655 J02.9 steam, salt water gargles several times a day, otc pain reliever as needed. Call if sx persist, regular TC sent out Eustachian tube disorder 15601828 H69.93 gargles, hydration try flonase once a day, call if ear pain persists; no evidence of otitis media today. [id number] Livan Fatima MD Main Office [address] [address] [place] [address] 03/26/2020 10:23:16 03/26/2020 11:21:36 Adult health examination 541200923 Z00.00 HM UTD, will check blood work. Needs infl uenza immunization 563259999 Z23 Elevated blood-pressure reading without diagnosis of hypertension 631896446 R03.0 Irritable bowel syndrome 80584921 K58.9 Body mass index 25-29 - overweight 723541904 Z68.28 E66.3 Screening for cardiovascular system disease 326539749 Z13.6 Major depr ession single episode, in partial remission 78478559 F32.4 [id number] Barbara dumont MD Main Office [address] [place] [address] 05/27/2020 10:30:41 05/27/2020 11:38:57 Strain of muscle of right shoulder 6029182190 6335593 S46.911A check xray of shoulder, rest, no sling, keep gentle ROM if xray negative, can use OTC pain reliever, Start PT belen. If worsening to call. Out of work for 1 week, if needs more time will call Use ice x 24-48 hours, then ice/heat. Inflammati on of sacroiliac joint 20964178 M46.1 Rest, stretching , change position frequently , will call if any worsening sx. [id number] Livan Fatima MD Main Office [address] [place] [address] 07/23/2020 14:49:33 07/23/2020 15:25:15 Otalgia 25578606 H92.02 Left ear pain but it hurts if she swallows, turns her head, yawns ect. suspect related to lymph node. Cervical lymphadenopathy 565002099 R59.0 left anterior cervical node tenderness , swelling. causes ear pain. Exposure t o viral disease 5426578423 26917 Z03.818 had temp 99.5 today. has had chills/ feeling hot and cold, very fatigued. she did have moderna covid vaccine 07/03 and had side effects to that which have resolved. 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 Plantar fa sciitis of left foot 9807946488 5209786 M72.2 Patient has tried exercises and Boot at night with no improvemen t.Will refer to podiatry to consider injections . Patient is establishe d with [facility] and I advised her to call for apt. Pain in left foot 878790 0048 38695 M79.672 DDx include neuroma, nerve entrapment .Patient [...] she has. Patient is establishe d with [facility] and I advised her to call.No xray at this time as she does not meet [place] criteria for xray. [id number] Livan Fatima MD Telehealt h [address] [facility] [address] [facility] [place] [address] 10/02/2020 11:39:51 10/02/2020 15:16:28 Diarrhea 85981369 R19.7 has resolved but nausea persists. Abdominal pain 19902181 R10.9 Exposure t o viral disease 1195846393 66475 Z03.818 Nausea 240793888 R11.0 use as needed Primary bi liary cholangitis 42791540 K74.3 on ursodiol taking med as directed. Renal cell carcinoma [address] in October. [id number] Livan Fatima MD Main Office [address] [facility] [address] [place] [address] 03/27/2021 08:31:51 03/27/2021 09:24:31 Adult health examination 762947620 Z00.00 HM UTD, has bloodwork regularly for her kidney/ ct scans Elevated blood-pressure reading without diagnosis of hypertension 706040809 R03.0 BP normal manually Renal cell carcinoma 702 234507 C64.9 Followed by urology, 1 kidney Primary bi liary cholangitis 17619396 K74.3 on ursodiol taking med as directed. Generalize d anxiety disorder 28290820 F41.1 on sertraline , considerin g weaning off. she will go to 25mg for now through the winter Administra tion of viral vaccine 35781735 Z23 [id number] Livan Fatima MD Main Office [address] [address] [place] [address] 03/31/2021 13:28:41 03/31/2021 14:16:10 Cellulitis of left upper limb 5448690193 2883897 L03.114 NSAIDs for pain and swelling and ice. May not be an infection but instead may be a local reaction to the immunizati on. She will call if she develops diarrhea because of her h/o c. dif. [id number] Livan Fatima MD Main Office [address] [address] [place] [address] 09/12/2021 10:16:27 09/12/2021 10:46:05 Low back pain 951478288 M54.50 low back pain, will tx with prednisone burst and flexeril as needed. no driving or alcohol with med. Heat to area as needed. stretching as tolerated. if sx persist will need imaging. Call or return for worsening or concerns. History of primary malignant neoplasm of kidney 881344788 Z85.528 renal cell carcinoma, left kidney. nephrectom y. Primary bi liary cholangitis 40738506 K74.3 on ursodiol taking med as directed. [id number] Barbara dumont MD Telehealt [address] [address] [place] [address] 12/24/2021 09:23:33 12/24/2021 11:19:34 Cough 89716032 R05.1 Pneumonia 612751347 J18. 9 will send over Zpak to [...] no role for CXR at this time [id number] Livan Fatima MD Main Office [address] [place] [address] 04/21/2022 13:10:00 04/21/2022 14:08:51 Pre-surgery evaluation 126747807 Z01.818 Having right topaz plantar fasciotomy with [...] surgery as scheduled. Renal cell carcinoma 702 395447 C64.9 Followed by urology, 1 kidney Elevated blood-pressure reading without diagnosis of hypertension 072402240 R03.0 BP normal manually Primary bi liary cholangitis 28156600 K74.3 on ursodiol taking med as directed. Fibromatos is of plantar fascia of right foot 1790401663 1166506 M72.2 having fasciotomy Hyperlipidemia 07078300 E78.5 Fatigue 94053758 R53.83 Impaired f asting glycemia 130754053 R73.01 Generalize d anxiety disorder 52282127 F41.1 she will go to 25mg daily x 2 weeks. [id number] Livan Fatima MD Main Office [address] [place] [address] 04/23/2022 10:39:54 04/23/2022 11:22:36 Adult health examination 464989889 Z00.00 HM due for mammo and pap- she will schedule, colonoscop y due in 2026. Flu shot today. Bloodwork was done this morning, pending results. Needs infl uenza immunization 526384543 Z23 Fibromatos is of plantar fascia of right foot 7178757406 2727042 M72.2 having fasciotomy Primary bi liary cholangitis 38759909 K74.3 on ursodiol taking med as directed. Renal cell carcinoma 702 344182 C64.9 Followed by urology, 1 kidney Generalize d anxiety disorder 04863911 F41.1 Continue sertraline 25mg daily x 2 weeks, then cut tab in half and take 12.5mg daily x 2 weeks.then will take 6.25mg daily x 1 week then stop medication .If any trouble stopping med please call/ return Pain of le ft hip joint 7800130497 86879 M25.552 [id number] Susan De Oliveira PA-C Main Office [address] [place] [address] 03/16/2023 10:12:04 03/16/2023 10:58:48 Viral upper respiratory tract infection 176854103 J06.9 Pt. is advised to increase hydration and rest, add otc decongesta nts such as Delsym, diphenhydr amine. Nasal saline or saline rinse. [id number] Livan Fatima MD Main Office [address] [place] [address] 04/27/2023 08:48:38 04/27/2023 09:46:23 Adult health examination 226853495 Z00.00 HM- UTD, pap, mammo and colo UTD. Fibromatos is of plantar fascia of right foot 4111260230 9897607 M72.2 had fasciotomy last May, still has pain and now has chronic tendinitis . Primary bi liary cholangitis 42370451 K74.3 on ursodiol taking med as directed. Generalize d anxiety disorder 42684939 F41.1 Continue sertraline 25mg daily Hyperlipidemia [id number] E78.5 Impaired f asting glycemia 706088158 R73.01 Fatigue 22729376 R53.83 Body mass index 30+ - obesity 454096635 Z68.34 Elevated blood-pressure reading without diagnosis of hypertension 299925218 R03.0 BP manually 136/80, thi is elevated for her and was elevated at her last visit. She will work on cutting back on sodium, drinking more water and starting to walk again. F/U in 1 month for recheck. History of primary malignant neoplasm of kidney 773823902 Z85.528 Followed by urology, 1 kidney, had CT scan in October Obesity 829956976 E66.9 [id number] Livan Fatima MD Main Office [address] [facility] [address] [facility] [place] [address] 07/13/2023 11:12:57 07/13/2023 11:59:34 Fever 769408242 R50.9 + covid, continue tylenol or nyquil/ dayquil Cough 83937164 R05.9 COVID-19 567229021 U07.1 Covid positive in office, this is [...] any resp distress, severe or worsening sx. [id number] Livan Fatima MD Main Office [address] [facility] [address] [facility] [address] 05/02/2024 15:16:10 05/02/2024 15:45:05 Adult health examination 054946186 Z00.00 HM- UTD, pap, mammo and colo UTD. Primary bi liary cholangitis 33673639 K74.3 on ursodiol taking med as directed. History of primary malignant neoplasm of kidney 184285546 Z85.528 Followed by urology, 1 kidney, had CT scan in October- all good. Generalize d anxiety disorder 18933314 F41.1 Continue sertraline 25mg daily Hyperlipidemia 33466617 E78.5 Impaired f asting glycemia 195494573 R73.01 Fatigue 31681557 R53.83 Elevated blood-pressure reading without diagnosis of hypertension 376934395 R03.0 BP manually 120/66 Obesity 402005043 E66.9 Body mass index 30+ - obesity 705580942 Z68.34 Vitamin D deficiency 347 81593 E55.9 [id number] Livan Fatima MD Main Office [address] [address] [place] [address] 07/06/2024 10:28:25 07/06/2024 11:31:13 Cough 70549236 R05.9 declines cough med currently, neg flu and covid. +OM Acute righ t otitis media 233571642 H66.91 Hydration, rest, tylenol as needed, tea with honey. clarithrom ycin as directed. [id number] Livan Fatima MD Main Office [address] [place] [address] 11/28/2024 09:29:30 11/28/2024 10:24:34 Postviral fatigue syndrome 59319887 G93.31 37588 This is probably secondary to her prior COVID infection but will do a w/u to r/o other etiologies . [id number] Sim Garcia MD Main Office [address] [place] [address] 05/03/2025 08:36:04 05/03/2025 09:41:05 Adult health examination 224976921 Z00.00 colon utd - next 1.27mammo, pap utd Vitamin D deficiency 347 02888 E55.9 Primary bi liary cholangitis 79611400 K74.3 stable, cont med as dir, cont f/u c gi Psoriasis 5795606 L40.9 stable, cont f/u c derm q yr Fatigue 20193062 R53.83 0014312 Impaired f asting glycemia 533686293 R73.01 392187 Hyperlipidemia 16861696 E78.5 Generalize d anxiety disorder 64225315 F41.1 stable, cont med as dir, cont f/u c therapist History of primary malignant neoplasm of kidney 461098940 Z85.528 75344106 stable, cont f/u c uro q yr Bilateral carpal tunnel syndrome 5138859886 5509505 G56.03 162365 pending B sx - [facility] Body mass index 30+ - obesity 674548462 E66.9 Z68.35 cont f/u c nutritioni st, walk, plenty of sleep - but naps a lot - see snoring below Snoring 09490028 R06.83 78514 will get sleep med eval Health Concerns Section Related Observation LastModified by Organization Detai ls LastModified Time None Recorded Concern Status LastModified by Organization Details LastModified Time None Recorded Advance Directives Directive Y: signed on 11/21/2014 Payers Insurance Date Sequence Insurance Name Policy Number Policy Ward Covered Member ID Ward Member ID Guarantor Name 03/15/2023 1 [employer] [facility] [id number] Tere Junior [id number] Tere Junior 05/08/2025 1 [employer] [facility] [id number] Tere Junior [id number] Tere Junior Notes Date Note Type Note [...] feels like chest hurts. BRODY Roberts [address] [address], [place], [address], [facility] [place] 07/13/2023 12:14:09 05/02/2024 text/html Generic HPI TemplateReported by PatientPresents for PE,No concerns but BP is high. No headaches, sometimes does get chest discomfort at random times, no palpitationshas lost 4 lbs and 13 inches since January. is having hot flashes, night sweats, mood changes BRODY Roberts [address] [facility] [address], [place], [address], [facility] [place] 05/02/2024 16:02:35 07/06/2024 text/html Generic HPI TemplateReported by PatientSx started Wednesday- body aches, chills, low grade temp, cough, dry for now but feels congestion, nasal congestion- yellow, sinus pressure/ pain, teeth pain, ear pain and blocked- bilateral, no N/V/D.No sick contacts BRODY Roberts [address] [address], [place], [address], [facility] [place] 07/06/2024 12:04:20 11/28/2024 text/html ROS as [...] her body recently. Livan Fatima MD [address] [address], [place], [address], [facility] [place] 11/28/2024 10:24:26 05/03/2025 text/html Generic HPI TemplateReported by Patient here for annual pe. Allan De Oliveira PA-C [address] [address], [place], [address], [facility] [place] 05/06/2025 09:55:57 OBGyn Episode No OBEpisode recorded.
== END 2025-06-26 13:28 | disposition home or self-care (01) ==
LOC: HO.HOS 12:32
PROVIDERS: PCP Physician Assistant Medical
DX: G56.03 Carpal tunnel syndrome, bilateral upper limbs (principal)
CPT/HCPCS: 99214